=== PATIENT | female | born 1945 | race Hispanic/Latino ===

== ENCOUNTER 2019-06-15 21:56 | Inpatient (IN) | payer OTHER, SELFPAY ==
[~2019-06-15] VITALS: Ht 144.8 cm; Wt 53.8 kg
[2019-06-15 22:41] LABS: BASOPHILS % (AUTO) 0.7 % (0.0-5.0); EOSINOPHILS % (AUTO) 0.4 % (0.0-8.0); HEMATOCRIT 40.9 % (36-48); LYMPHOCYTES % (AUTO) 21.5 % (21.0-51.0); MEAN CORPUSCULAR HGB CONC 34.2 g/dL (32.0-36.0); MEAN CORPUSCULAR VOLUME 93.4 fL (79-99); MONOCYTES % (AUTO) 6.8 % (3.0-13.0); NEUTROPHILS % (AUTO) 70.6 % (40.0-77.0); PLATELET COUNT (AUTO) 343 K/uL (130-400); RED BLOOD CELL COUNT(AUTO) 4.37 MIL/uL (4.00-5.50); RED CELL DISTRIBUTION WIDTH 13.5 % (11.0-15.5); WHITE BLOOD COUNT (AUTO) 12.5 K/uL (4.8-10.8)
[2019-06-15 22:49] LABS: CREATININE 0.8 mg/dL (0.5-1.5); POTASSIUM 3.7 mmol/L (3.5-5.1)
[2019-06-15 22:53] LABS: ALBUMIN 4.1 g/dL (3.5-5.0); BILIRUBIN,DIRECT 0.1 mg/dL (0.0-0.3); BILIRUBIN,TOTAL 0.2 mg/dL (0.2-1.0); TOTAL PROTEIN, SERUM 8.9 g/dL (6.0-8.3)
[2019-06-15 22:55] LABS: INR 1.01 (0.85-1.15); PARTIAL THROMBOPLASTIN TIME 24.8 SEC (26.3-35.5); PROTHROMBIN TIME 10.4 SEC (9.6-11.6)
[2019-06-15] MEDS ORDERED: SODIUM CHLORIDE 0.9% 1000ML 1,000 ML IV ONE (23:12)
[2019-06-16] VITALS (7 sets, daily range): BP systolic 122–167; BP diastolic 62–89
[2019-06-16] MEDS: SODIUM CHLORIDE 0.9% 1000ML 1,000 ML IV SCH ×2 (03:19→14:05)
[2019-06-16] MEDS ORDERED: ONDANSETRON HCL 4 MG/2 ML VIAL IV PRN (03:30)
[2019-06-16] MEDS ORDERED: HYDRALAZINE HCL 20 MG/ML VIAL IV PRN ×2 (03:30→11:00)
[2019-06-16] MEDS ORDERED: ACETAMINOPHEN 325 MG TAB PO PRN ×2 (03:30)
[2019-06-16 05:14] LABS: BASOPHILS % (AUTO) 0.6 % (0.0-5.0); EOSINOPHILS % (AUTO) 0.4 % (0.0-8.0); HEMATOCRIT 36.5 % (36-48); LYMPHOCYTES % (AUTO) 23.6 % (21.0-51.0); MEAN CORPUSCULAR HEMOGLOBIN 31.7 pg (27.0-33.0); MEAN CORPUSCULAR HGB CONC 34.1 g/dL (32.0-36.0); MEAN CORPUSCULAR VOLUME 92.8 fL (79-99); MONOCYTES % (AUTO) 7.4 % (3.0-13.0); PLATELET COUNT (AUTO) 344 K/uL (130-400); RED BLOOD CELL COUNT(AUTO) 3.94 MIL/uL (4.00-5.50); RED CELL DISTRIBUTION WIDTH 13.5 % (11.0-15.5); WHITE BLOOD COUNT (AUTO) 10.4 K/uL (4.8-10.8)
[2019-06-16 05:33] LABS: ALBUMIN 3.4 g/dL (3.5-5.0); BILIRUBIN,TOTAL 0.4 mg/dL (0.2-1.0); CREATININE 0.8 mg/dL (0.5-1.5); CRP QUANTITATIVE 6.3 mg/L (0.00-9.0); POTASSIUM 3.8 mmol/L (3.5-5.1); TOTAL PROTEIN, SERUM 7.4 g/dL (6.0-8.3)
[2019-06-16] MEDS: LEVOFLOXACIN 500 MG/D5W 100 ML 100 ML IV SCH (06:14)
[2019-06-16] MEDS: METRONIDAZOLE 500MG/100ML BAG 100 ML IV SCH ×3 (06:15→22:05)
[2019-06-16] MEDS ORDERED: VALS1TAB81 PO (06:22)
[2019-06-16] MEDS ORDERED: LEVO100T12 PO (06:22)
[2019-06-16] MEDS ORDERED: PANTOPRAZOLE SODIUM 80 MG in SODIUM CHLORIDE 0.9% 100 ML IV SCH (07:15)
--- NOTE | 2019-06-16 08:33 | NUR ---
GI CONSULT SPOKE TO DR PATEL, UPDATED ON PATIENT STATUS. ORDERS GIVEN FOR CLEAR LIQUID DIET, H&H Q4H AND STOP PROTONIX DRIP AND GIVE PROTONIX 40MG IVP BID.
[2019-06-16] MEDS ORDERED: COMPOUND IV MISC 1 EACH IVSOLN MISC PRN (08:45)
[2019-06-16] MEDS ORDERED: FAMOTIDINE/PF 20 MG/2 ML VIAL IV SCH (09:00)
[2019-06-16 09:13] LABS: HEMATOCRIT 36.5 % (36-48)
[2019-06-16] MEDS: PANTOPRAZOLE 40 MG/VIAL IVP SCH ×2 (09:59→22:18)
[2019-06-16 12:43] LABS: HEMATOCRIT 34.7 % (36-48)
[2019-06-16 16:26] LABS: HEMATOCRIT 35.3 % (36-48)
[2019-06-16] MEDS ORDERED: LOSARTAN/HYDROCHLOROTHIAZIDE 50-12.5MG TABLET PO SCH (21:00)
[2019-06-17 04:00] VITALS: BP 139/68
[2019-06-17 05:56] LABS: BASOPHILS % (AUTO) 0.9 % (0.0-5.0); EOSINOPHILS % (AUTO) 1.6 % (0.0-8.0); HEMATOCRIT 32.9 % (36-48); LYMPHOCYTES % (AUTO) 29.8 % (21.0-51.0); MEAN CORPUSCULAR HEMOGLOBIN 32.1 pg (27.0-33.0); MEAN CORPUSCULAR HGB CONC 34.3 g/dL (32.0-36.0); MEAN CORPUSCULAR VOLUME 93.6 fL (79-99); MONOCYTES % (AUTO) 8.5 % (3.0-13.0); NEUTROPHILS % (AUTO) 59.2 % (40.0-77.0); NUCLEATED RED BLOOD CELLS 0.1 % (0.0-0.19); PLATELET COUNT (AUTO) 291 K/uL (130-400); RED BLOOD CELL COUNT(AUTO) 3.52 MIL/uL (4.00-5.50); RED CELL DISTRIBUTION WIDTH 13.4 % (11.0-15.5); WHITE BLOOD COUNT (AUTO) 9.4 K/uL (4.8-10.8)
[2019-06-17 05:59] LABS: CREATININE 0.7 mg/dL (0.5-1.5); POTASSIUM 3.2 mmol/L (3.5-5.1)
[2019-06-17] MEDS: METRONIDAZOLE 500MG/100ML BAG 100 ML IV SCH ×2 (06:04→14:11)
[2019-06-17] MEDS: LEVOFLOXACIN 500 MG/D5W 100 ML 100 ML IV SCH (06:04)
[2019-06-17] MEDS ORDERED: LEVOTHYROXINE 100 MCG TABLET PO SCH (08:00)
[2019-06-17 08:01] VITALS: BP 155/91
[2019-06-17] MEDS: SODIUM CHLORIDE 0.9% 1000ML 1,000 ML IV SCH (08:22)
[2019-06-17 08:57] LABS: HEMATOCRIT 35.7 % (36-48)
[2019-06-17] MEDS: PANTOPRAZOLE 40 MG/VIAL IVP SCH (09:00)
[2019-06-17 12:00] VITALS: BP 144/70
[2019-06-17 16:00] VITALS: BP 160/77
[2019-06-17] MEDS ORDERED: METR-172 PO (18:23)
[2019-06-17] MEDS ORDERED: LEVO500T89 PO (18:23)
[2019-06-17] MEDS ORDERED: PANT40TA PO (18:23)
[2019-06-17] MEDS ORDERED: POTASSIUM CHLORIDE 10% ELIXIR 20 MEQ/15 ML UDCUP PO SCH (18:30)
== END 2019-06-17 19:33 | disposition home or self-care (01) | DRG 379 ==
LOC: EDH 21:56 → EDHIP 23:48 → 4BH 06-16 00:02
PROVIDERS: ADMIT Internal Medicine; ATTEND Internal Medicine
DX: K57.33 Diverticulitis of large intestine without perforation or abscess with bleeding (principal); E11.65 Type 2 diabetes mellitus with hyperglycemia; E03.9 Hypothyroidism, unspecified; Z87.891 Personal history of nicotine dependence; I10 Essential (primary) hypertension; D72.829 Elevated white blood cell count, unspecified; R00.0 Tachycardia, unspecified
CPT/HCPCS: 36415; 74176; 78278; 80048; 80053; 80076; 82270; 82948; 83690; 85014; 85018; 85025; 85610; 85730; 86140; 86850; 86900; 86901; 87046; 93005; A9512; C9113; G0378; J1956; J2405; J3490; J7030

== ENCOUNTER 2022-08-28 20:04 | Emergency (ER) | payer OTHER ==
[~2022-08-28] VITALS: Ht 175.3 cm; Wt 53.1 kg
[~2022-08-28 20:04] MED LIST: LEVO-70 PO; LEVO100T12 PO; METR-172 PO; PANT40TA PO; VALS1TAB81 PO
[2022-08-28] MEDS ORDERED: 0.9%NACL 1000ML 1,000 ML IV SCH (21:30)
[2022-08-28] MEDS ORDERED: ONDANSETRON 4MG INJ IVP ONE (21:30)
[2022-08-28 21:44] LABS: BASOPHILS % (AUTO) 0.2 % (0.0-5.0); EOSINOPHILS % (AUTO) 5.4 % (0.0-8.0); HEMATOCRIT 44.6 % (36-48); LYMPHOCYTES % (AUTO) 3.7 % (21.0-51.0); MEAN CORPUSCULAR HEMOGLOBIN 30.6 pg (27.0-33.0); MEAN CORPUSCULAR HGB CONC 33.4 g/dL (32.0-36.0); MEAN CORPUSCULAR VOLUME 91.6 fL (79-99); MONOCYTES % (AUTO) 1.9 % (3.0-13.0); NEUTROPHILS % (AUTO) 88.3 % (40.0-77.0); PLATELET COUNT (AUTO) 348 K/uL (130-400); RED BLOOD CELL COUNT(AUTO) 4.87 MIL/uL (4.00-5.50); RED CELL DISTRIBUTION WIDTH 13.2 % (11.0-15.5); WHITE BLOOD COUNT (AUTO) 18.3 K/uL (4.8-10.8)
[2022-08-28 22:02] LABS: CREATININE 0.9 mg/dL (0.5-1.5); POTASSIUM 3.8 mmol/L (3.5-5.1)
[2022-08-28 22:03] LABS: APPEARANCE,URINE CLOUDY (CLEAR); BILIRUBIN,URINE NEGATIVE (NEGATIVE); COLOR,URINE YELLOW (YELLOW); GLUCOSE, URINE (UA) NEGATIVE (NEGATIVE); KETONES,URINE 5 mg/dL (NEGATIVE); LEUKOCYTE ESTERASE ,URINE 75 Leu/uL (NEGATIVE); NITRATE,URINE NEGATIVE (NEGATIVE); OCCULT BLOOD,URINE SMALL (NEGATIVE); PROTEIN,URINE 200 mg/dL (NEGATIVE); UROBILINOGEN,URINE 0.2 mg/dL (0.2-1.0)
[2022-08-28 22:06] LABS: ALBUMIN 4.4 g/dL (3.5-5.0); TOTAL PROTEIN, SERUM 9.1 g/dL (6.0-8.3)
[2022-08-28 22:13] LABS: BACTERIA,URINE RARE /HPF (None Seen); MUCUS,URINE RARE LPF (None Seen); SQUAMOUS EPITHELIAL CELL,UR FEW /HPF (0-2)
[2022-08-29] MEDS ORDERED: AZITHROMYCIN 250 MG TABLET PO STA (03:04)
[2022-08-29] MEDS ORDERED: AZIT500T4 PO (03:08)
[2022-08-29] MEDS ORDERED: AZITHROMYCIN 250 MG TABLET PO ONE (03:13)
[2022-08-29 03:14] VITALS: BP 132/62
== END 2022-08-29 03:27 | disposition home or self-care (01) ==
LOC: EDH 20:04
DX: A05.9 Bacterial foodborne intoxication, unspecified (principal); K52.9 Noninfective gastroenteritis and colitis, unspecified; I10 Essential (primary) hypertension; Z79.899 Other long term (current) drug therapy
CPT/HCPCS: 99285; 80053; 83690; 85025; 87088; 81001; 36415; 96374; 96361; J7030; J2405

== ENCOUNTER → 2024-06-04 | Outpatient (CLI) | payer OTHER ==
[~2024-06-04] MED LIST changes: +AZIT500T4 PO
== END | disposition home or self-care (01) ==
LOC: RAH 09:13
PROVIDERS: ATTEND Internal Medicine
DX: M81.0 Age-related osteoporosis without current pathological fracture (principal); M85.88 Other specified disorders of bone density and structure, other site; Z78.0 Asymptomatic menopausal state
CPT/HCPCS: 77080

== ENCOUNTER 2024-10-05 21:35 | Inpatient (IN) | payer OTHER ==
[~2024-10-05] VITALS: Ht 144.8 cm; Wt 53.5 kg
--- NOTE | 2024-10-05 21:51 | ERN ---
ED Note History of Present Illness Stated Complaint: CHEST PAIN Chief Complaint: Chest Pain Time Seen by MD: 21:46 Dictation: This is a 79-year-old pleasant female who began experiencing pain bilaterally in her axillary areas. Was sore to touch it was not too bad this morning.. She went to the chiropractor for adjustment in the upper back was adjusted after which she started experiencing worsening upper mid back pain as well as the axillary pain. She took Tylenol at 2:00 p.m. and 1800 without much relief. She denied any diaphoresis or previous chest pains or cardiac issues. No fall no injury Temperature 97.7 pulse 82 respirations 20 blood pressure 188/90 with a pulse oximetry of 100% on room air Chronic medical problems include hypertension and hypothyroidism Allergies: Coded Allergies: No Known Drug Allergies (Unverified Allergy, Unknown, 06/16/19) Home Meds Active Scripts Azithromycin (Azithromycin) 500 Mg Tablet, 500 MG PO DAILY for 3 Days, #3 TAB Prov:ROSALEE MEYERS MD 08/29/22 Pantoprazole Sodium (Protonix) 40 Mg Tablet.dr, 40 MG PO BID for 10 Days, TAB Prov:LEROY KIMBALL SPEECH LANGUAGE PATHOLOGY ASSISTANT 06/17/19 Metronidazole (Metronidazole) 500 Mg Tablet, 500 MG PO TID for 5 Days, TAB Prov:LEROY KIMBALL NP 06/17/19 Levofloxacin (Levofloxacin) 500 Mg Tablet, 500 MG PO DAILY for 5 Days, TAB Prov:LEROY KIMBALL SPEECH LANGUAGE PATHOLOGY ASSISTANT 06/17/19 Reported Medications Valsartan/Hydrochlorothiazide (Valsartan-Hctz 320-25 mg Tab) 1 Each Tablet, 1 TAB PO HS, TAB 06/16/19 Levothyroxine Sodium (Levothyroxine Sodium) 100 Mcg Tablet, 100 MCG PO DAILYBKFST, TAB 06/16/19 Past Medical History Past Medical History: Hypertension, Hypothyroid Surgical History: None Family History: Negative Social History: Negative History: Not Applicable RN Note Reviewed/Agreed w/PFSH: Yes Review of System Dictation Described in the history of present illness Constitutional: Negative for fever,chills, and weight loss Eyes: Negative for injury, pain,redness, and discharge ENT: Negative for injury,pain or swelling Cardiovascular: Negative for chest pain, palpitations, and edema Respiratory: Negative for shortness of breath, cough, and wheezing, Abdomen/GI: Negative for abdominal pain, nausea, vomiting, diarrhea, and constipation Back: Negative for injury and pain : Negative for injury, bleeding and discharge MS/Extremity: Negative for injury and deformity Skin: Negative for rash, and discoloration Neuro: Negative for headache, weakness, numbness, tingling, and seizure Psych: Negative for suicide ideation, homicidal ideation, and hallucinations Initial Vital Sign VS Vital Signs Date Time Temp Pulse Resp B/P (MAP) Pulse Ox O2 Delivery O2 Flow Rate FiO2 10/05/24 21:36 97.7 82 20 188/90 100 Room Air 10/05/24 21:54 0 21 Physical Exam Dictation General: awake, alert, NAD frail elderly female Head/Face: Normocephalic, atraumatic Eyes: PERRL, EOMI, vision at baseline ENT: oral cavity clear, TMs clear, no signs of infection Neck: Trachea midline, supple, no nuchal rigidity Cardiovascular: RRR, normal S1/S2, No MRGs, no JVD Respiratory: CTAB, no respiratory distress, No rales or wheezes Abdomen: Soft, non-tender, non-distended, normal bowel sounds, no guarding or rebound. Skin: Warm, dry, normal turgor, no rash MS/Extremity: Pulses equal, no cyanosis, neurovascular intact, FROM interscapular area pain with a tenderness in the paraspinal muscles and spine. No induration or ecchymosis noted Neuro: COAx4, GCS 15, strength 5/5, CN 2-12 intact, normal cerebellar exam, normal gait, Psych: Normal behavior, mood, and affect normal Extremities-trace edema without any palpable cords, Homans sign is negative Results (Laboratory/Radiology) Laboratory/Radiology Laboratory Tests Test 10/05/24 21:48 10/05/24 22:23 10/05/24 23:14 10/06/24 04:40 White Blood Count 9.8 K/uL (4.8-10.8) 11.6 K/uL (4.8-10.8) H Red Blood Count 4.60 MIL/uL (4.00-5.50) 4.12 MIL/uL (4.00-5.50) Hemoglobin 14.1 g/dL (12.0-16.0) 12.6 g/dL (12.0-16.0) Hematocrit 42.4 % (36-48) 38.4 % (36-48) Mean Corpuscular Volume 92.2 fL (79-99) 93.2 fL (79-99) Mean Corpuscular Hemoglobin 30.7 pg (27.0-33.0) 30.6 pg (27.0-33.0) Mean Corpuscular Hemoglobin Concent 33.3 g/dL (32.0-36.0) 32.8 g/dL (32.0-36.0) Red Cell Distribution Width 13.2 % (11.0-15.5) 13.2 % (11.0-15.5) Platelet Count 319 K/uL (130-400) 290 K/uL (130-400) Mean Platelet Volume 9.5 fL (7.5-10.5) 9.3 fL (7.5-10.5) Immature Granulocyte % (Auto) 0.4 % (0-1) 0.4 % (0-1) Neutrophils (%) (Auto) 69.9 % (40.0-77.0) 70.8 % (40.0-77.0) Lymphocytes (%) (Auto) 21.5 % (21.0-51.0) 18.2 % (21.0-51.0) L Monocytes (%) (Auto) 7.2 % (3.0-13.0) 9.0 % (3.0-13.0) Eosinophils (%) (Auto) 0.4 % (0.0-8.0) 0.9 % (0.0-8.0) Basophils (%) (Auto) 0.6 % (0.0-5.0) 0.7 % (0.0-5.0) Neutrophils # (Auto) 6.8 K/uL (1.8-7.7) 8.2 K/uL (1.8-7.7) H Lymphocytes # (Auto) 2.1 K/uL (1.0-4.8) 2.1 K/uL (1.0-4.8) Monocytes # (Auto) 0.7 K/uL (0.1-1.0) 1.0 K/uL (0.1-1.0) Eosinophils # (Auto) 0.04 K/uL (0.00-0.70) 0.10 K/uL (0.00-0.70) Basophils # (Auto) 0.06 K/uL (0.00-0.20) 0.08 K/uL (0.00-0.20) Absolute Immature Granulocyte (auto 0.04 K/uL (0-1) 0.05 K/uL (0-1) Nucleated Red Blood Cells 0.0 % (0.0-0.19) 0.0 % (0.0-0.19) Sodium Level 137 mmol/L (136-145) 141 mmol/L (136-145) Potassium Level 4.1 mmol/L (3.5-5.1) 4.5 mmol/L (3.5-5.1) Chloride Level 99 mmol/L (101-111) L 106 mmol/L (101-111) Carbon Dioxide Level 29 mmol/L (21-32) 28 mmol/L (21-32) Blood Urea Nitrogen 21 mg/dL (7-18) H 19 mg/dL (7-18) H Creatinine 1.1 mg/dL (0.5-1.0) H 0.9 mg/dL (0.5-1.0) Glomerular Filtration Rate Calc 51 mL/min (>90) 65 mL/min (>90) Random Glucose 208 mg/dL (70-105) H 131 mg/dL (70-105) H Hemoglobin A1c 7.1 % (4.0-6.0) H Estimated Average Glucose (eAG) 157 mg/dL (70-126) H Total Calcium 9.2 mg/dL (8.5-10.1) 8.7 mg/dL (8.5-10.1) Total Creatine Kinase 69 U/L (21-232) Troponin I High Sensitivity 378 ng/L (4-50) *H 84917 ng/L (4-50) *H B-Type Natriuretic Peptide 85 pg/mL (0-100) Troponin I 0.09 ng/mL (0.00-0.05) H Urine Color COLORLESS (YELLOW) Urine Appearance CLEAR (CLEAR) Urine pH 7.5 (5.0-8.0) Urine Specific [place] 1.009 (1.001-1.031) Urine Protein NEGATIVE mg/dL (NEGATIVE) Urine Glucose (UA) NEGATIVE mg/dL (NEGATIVE) Urine Ketones NEGATIVE mg/dL (NEGATIVE) Urine Occult Blood NEGATIVE (NEGATIVE) Urine Nitrate NEGATIVE (NEGATIVE) Urine Bilirubin NEGATIVE mg/dL (NEGATIVE) Urine Urobilinogen 0.2 mg/dL (0.2-1.0) Urine Leukocyte Esterase NEGATIVE Jacy/uL Phosphorus Level 3.7 mg/dL (2.5-4.9) Magnesium Level 1.80 mg/dL (1.80-2.40) Thyroid Stimulating Hormone (TSH) 1.83 uIU/mL (0.36-3.74) Labs Reviewed?: Yes EKG Comment: 12 lead EKG done on 10/05/2024 at 9:34 p.m. showed a heart rate of 80, HI interval 158, QRS 69, QT/QTC 351/405. Impression normal sinus rhythm with repolarization changes in the lateral leads mostly in lead 1 and aVL. Please note no acute ST elevations were noted I have compared the EKG to old EKGs done on 06/15/2019 ST changes in lead 1 and aVL seem a little more pronounced than the old EKGs Interpreted by ER MD Dr. Ayala ED Course ED Course Orders Procedure Category Date Status Time Vital Signs Per CPOE 10/05/24 Transmitted Routine 21:37 B-Type Natriuretic LAB 10/05/24 Complete Peptide 21:37 Chest 1vw RAD 10/05/24 Taken 21:37 12 Lead Ekg Tracing- EKG 10/05/24 Logged Technical 21:37 Oxygen By Nc/Pulse Ox CPOE 10/05/24 Transmitted 21:37 Maintain Iv CPOE 10/05/24 Transmitted 21:37 Iv Insertion CPOE 10/05/24 Transmitted 21:37 Cardiac Monitoring CPOE 10/05/24 Transmitted 21:37 Pulse Oximetry With CPOE 10/05/24 Transmitted Vs And Prn 21:37 Cbc With Differential LAB 10/05/24 Complete 21:37 Activity: Br W/Brp CPOE 10/05/24 Transmitted With Assist 21:37 Creatine Kinase, Total LAB 10/05/24 Complete 21:37 Troponin I High LAB 10/05/24 Complete Sensitivity 21:37 Urinalysis Profile LAB 10/05/24 Complete 21:37 Troponin Poc Order LAB 10/05/24 Complete Only 21:37 Bedside Troponin-I LAB.ER 10/05/24 In Process (Poc) 21:37 Basic Metabolic Panel LAB 10/05/24 Complete 21:37 Morphine 2mg Syg PHA 10/05/24 Complete (Morphine 2mg Syg) 22:30 Ketorolac PHA 10/05/24 Complete Tromethamine 15mg/Ml 22:30 Nitroglycerin 0.4mg PHA 10/05/24 In Process Sl Tab (Nitrostat) 22:30 Edm Admit Bridge Order ADM 10/05/24 Transmitted 22:59 Aspirin 81mg Chew Tab PHA 10/05/24 Complete (Aspirin 81mg Chew 23:30 Aspirin 81mg Chew Tab PHA 10/06/24 In Process (Aspirin 81mg Chew 09:00 Troponin I High LAB 10/06/24 Complete Sensitivity 04:00 Troponin I High LAB 10/06/24 Logged Sensitivity 10:00 Troponin I High LAB 10/06/24 Logged Sensitivity 16:00 Nitroglycerin 1gm PHA 10/05/24 In Process Oint (Nitroglycerin 1g 23:30 Ondansetron 4mg Inj PHA 10/05/24 In Process (Zofran 4mg Inj) 23:30 Heparin 5,000 Unit PHA 10/06/24 In Process Vial (Heparin 5,000 U 09:00 Pantoprazole 40mg Tab PHA 10/06/24 In Process (Protonix 40mg Tab 09:00 Acetaminophen 325 Tab PHA 10/05/24 In Process (Tylenol 325mg Tab 23:30 Admit Orders ADM 10/05/24 Transmitted 23:04 Cardiology Consult CONPHYSVC 10/06/24 Transmitted 08:00 Consistent Carb DIET 10/06/24 Transmitted Breakfast Basic Metabolic Panel LAB 10/06/24 Complete 04:00 Cbc With Differential LAB 10/06/24 Complete 04:00 Magnesium LAB 10/06/24 Complete 04:00 Phosphorus LAB 10/06/24 Complete 04:00 Activity: Ad Aimee CPOE 10/05/24 Transmitted 23:04 Nurse To Enter Home CPOE 10/05/24 Transmitted Medication 23:04 Oxygen By Nc/Pulse Ox CPOE 10/05/24 Transmitted 23:04 Telemetry Monitoring CPOE 10/05/24 Transmitted 23:04 Vital Signs(Adult CPOE 10/05/24 Transmitted Hospitalist) 23:04 Initiate ISAAK 10/05/24 In Process Hyperglycemia Protoco 23:04 Insulin Regular, PHA 10/06/24 In Process Human 3ml (Humulin R 07:30 Initiate Po ISAAK 10/05/24 In Process Hypokalemia Protoc 23:04 Potassium Chloride PHA 10/05/24 In Process 20meq/100ml ([place] 23:30 Potassium Chl 10% PHA 10/05/24 In Process Elixir 20meq (Kcl 10% 23:30 Potassium Chloride PHA 10/05/24 In Process 20meq Er (K-Dur/Klor- 23:30 Notify Physician If CPOE 10/05/24 Transmitted There Is 23:04 Notify Md On The Next CPOE 10/05/24 Transmitted 23:04 Notify Md On The CPOE 10/05/24 Transmitted Next(Cont.) 23:04 Magnesium 2gm Premix PHA 10/05/24 In Process 50ml (Magnesium 2gm 23:30 Hemoglobin A1c LAB 10/06/24 Complete 04:00 Daily Weights CPOE 10/05/24 Transmitted 23:14 I&O Q Shift CPOE 10/05/24 Transmitted 23:14 Thyroid Stimulating LAB 10/06/24 Complete Hormone 04:00 Current Medications Medications (Trade) Dose Ordered Sig/Rashad Route PRN Reason Start Time Stop Time Status Last Admin Dose Admin Ketorolac Tromethamine (toRADol) 15 mg ONCE ONCE IV 10/05/24 22:30 10/05/24 22:31 DC 10/05/24 23:34 Morphine Sulfate (morPHINE 2MG SYG) 2 mg ONCE ONCE IVP 10/05/24 22:30 10/05/24 22:31 DC 10/05/24 22:22 Nitroglycerin (Nitrostat) 0.4 mg AD PRN SL CHEST PAIN 10/05/24 22:30 11/04/24 22:29 Vital Signs Date Time Temp Pulse Resp B/P (MAP) Pulse Ox O2 Delivery O2 Flow Rate FiO2 10/06/24 05:19 97.7 65 13 121/61 97 Room Air* 0 10/06/24 03:33 97.7 77 14 134/72 98 Room Air* 0 10/06/24 01:31 97.7 74 19 124/79 97 Room Air* 0 10/05/24 23:50 97.7 70 18 125/74 100 Room Air* 0 10/05/24 22:49 97.7 74 17 137/73 100 Room Air* 0 10/05/24 21:54 97.7 70 22 154/71 100 Room Air* 0 21 10/05/24 21:36 97.7 82 20 188/90 100 Room Air We will perform diagnostic labs, advanced imaging and administer medications according to the patient's complaint. Once the results are available, will review and personally interpreted the labs to rule out any acute life- threatening emergency the trach require immediate intervention and treatment. I will then re-evaluate the patient after treatment and diagnostic exams have return to determine whether the patient requires any further testing, can safely be discharged home or need further admission to hospital for additional treatment and evaluation. Labs reviewed CBC is with a normal limits BNP 7 showed a BUN and creatinine of 21 and 1.1. Troponins elevated at 378. Chest x-ray shows chronic changes but no acute infiltrates. I had a long discussion with the patient and her daughter Brandy at bedside and explained to her about the ST repolarization changes in the lateral leads as well as elevated troponins which are concerning for a cardiac event. Is conceivable that the patient has some tenderness and paraspinal muscle spasm in the upper back which may be a component of musculoskeletal pain in addition. And I recommended admission to the hospital for management and cardiac evaluation as well as pain control. She is agreeable Patient accepted by Curry Zuniga, mid-level provider for hospitalist group for admission and further management. Patient's presentation has been musculoskeletal and cardiac changes have been extremely incidental. She denies any diaphoresis shortness of breath anterior chest pain in any form. Anticoagulation per admission team. Addendum 6:10 a.m. repeat EKG was done which showed some acute new changes in the anterior and septal leads. Attempted to notify primary team call placed Medical Decision Making MDM MDM: Differential diagnosis: Thoracic radiculopathy, paraspinal muscle spasm, unstable angina or aortic problems Rationale: Tests considered and ordered secondary to shared decision making include: labs, ECG and radiology Previous outside records reviewed: Old ER visits. Risk of complication and/or morbidity or mortality of patient management: None Medications-Per medication reconciliation Need for hospitalization: Patient does meet criteria for hospitalization. Need for emergency major/minor surgery: No There are no social concerns with this patient. Prescription drug management Prescriptions will include symptomatic care Patient's prior external medical records from other ER visits were reviewed by me as indicated. Prior testing and results from previous visits were reviewed. Prior tests were taken into account with medical decision making and resource utilization, independent historian/historians were used to obtain complete medical history. I independently interpreted the test that were performed, results were reviewed by me and considered findings on radiology if ordered. Medical management and examination interpretation discussions were had by me with other qualified healthcare professionals as indicated for the patient's care. Problem List Problem List: (1) Uncontrolled hypertension (2) Hypothyroidism (3) Midline back pain (4) Non-STEMI (non-ST elevated myocardial infarction) (5) Tachycardia Critical Care Note Critical Time: 45 minutes Comment(s) Life-threatening illness; acute non-STEMI, Risk of morbidity mortality-high Complexity of medical decision making-high (X) high probability of sudden clinically significant deterioration in the patient's condition required the highest level of my preparedness to intervene urgently. I provided critical care services requiring my direct and personal management as noted below; (x) chart data review (x) reviewing nurse's notes and/charts (x) documentation time (x) consultation collaboration on findings and therapy options (x) medication orders and management (x) re-evaluations (x) care, transfer of care, and discharge plans (x) ordering and interpreting studies (x) ordering and reviewing labs (x) obtaining necessary history from family, EMS, prison, private MD, surrogate decision makers because patient was unable to give history due to limitations in the mental status (x) aggregate critical care time was ( 45 ) minutes. This includes only time during which I was engaged in work directly related to the patient's care as described above whether at the bedside or elsewhere in the ER while the patient was critical. My time did not include minutes spent treating any other patients simultaneously or on activities that did not directly contribute to the patient's treatment. It did not include time spent performing other reported procedures or services of residents if any. Gaviota TOMPKINSCP DX & DISP Disposition: Inpatient Decision to Admit Time: 22:36 Departure Impression: Primary Impression: Non-STEMI (non-ST elevated myocardial infarction) Additional Impressions: Midline back pain, Uncontrolled hypertension, Hypothyroidism Condition: Stable Additional Instructions: Patient was informed of all the diagnostic labs and procedures conducted in the emergency room today and demonstrated understanding of the results. I personally reviewed and interpreted all the diagnostic exams performed in the ER today. The patient will be admitted to the hospital for further treatment and evaluation. Disposition-admit to facility Condition-stable/guarded Course-uncertain at this time Pain status-decreased Assessment-exam unchanged Admission Certification- I certify that the patients status is appropriate and is based on my best clinical judgment and the patient's condition as documented in the medical records Referrals: HIEU BARBER MD (PCP) GAVIOTA AYALA MD Oct 05, 2024 21:51
[2024-10-05 22:01] LABS: BASOPHILS # (AUTO) 0.06 K/uL (0.00-0.20); BASOPHILS % (AUTO) 0.6 % (0.0-5.0); EOSINOPHILS # (AUTO) 0.04 K/uL (0.00-0.70); EOSINOPHILS % (AUTO) 0.4 % (0.0-8.0); HEMATOCRIT 42.4 % (36-48); IMMATURE GRANULOCYTE ABSOLUTE 0.04 K/uL (0-1); LYMPHOCYTES # (AUTO) 2.1 K/uL (1.0-4.8); LYMPHOCYTES % (AUTO) 21.5 % (21.0-51.0); MEAN CORPUSCULAR HEMOGLOBIN 30.7 pg (27.0-33.0); MEAN CORPUSCULAR HGB CONC 33.3 g/dL (32.0-36.0); MEAN CORPUSCULAR VOLUME 92.2 fL (79-99); MONOCYTES # (AUTO) 0.7 K/uL (0.1-1.0); MONOCYTES % (AUTO) 7.2 % (3.0-13.0); NEUTROPHILS # (AUTO) 6.8 K/uL (1.8-7.7); NEUTROPHILS % (AUTO) 69.9 % (40.0-77.0); PLATELET COUNT (AUTO) 319 K/uL (130-400); RED CELL DISTRIBUTION WIDTH 13.2 % (11.0-15.5); WHITE BLOOD COUNT (AUTO) 9.8 K/uL (4.8-10.8)
[2024-10-05 22:09] LABS: CREATININE 1.1 mg/dL (0.5-1.0); POTASSIUM 4.1 mmol/L (3.5-5.1)
[2024-10-05] MEDS: morPHINE 2 MG SYG IVP ONE (22:22)
[2024-10-05 22:27] LABS: B-TYPE NATRIURETIC PEPTIDE 85 pg/mL (0-100)
[2024-10-05] MEDS ORDERED: NITROGLYCERIN 0.4 MG SL TAB SL PRN (22:30)
--- NOTE | 2024-10-05 23:08 | HP ---
History of Present Illness Reason for Visit: chest pain Referring MD: Dr. Sheila Rivera History of Present Illness Ms. Mac is a 79-year-old female that was seen and examined today on 10/05/2024. Patient is a good historian and personal health. Patient states that she came to the emergency department with a chief complaint of bilateral chest wall pain closer to the axilla and pain also radiates to the back. Onset was 9:30 a.m.. Character is described as throbbing. Symptoms are aggravated with palpation and movement. Symptoms are not alleviated with a chiropractic adjustment in fact symptoms became worse after a chiropractic adjustment. There was no alleviating factors Duration of pain is on and off. Patient denies any associated shortness of breath, nausea, vomiting, headache, dizziness. Today in the emergency department CBC unremarkable, troponin 378 (high sensitivity), creatinine 1.1, glucose 208 mg/dL, GFR 51, no urinalysis has been collected or sent to lab. Emergency room initial impression and EKG is that there is new T-wave inversions signifying a change from previous EKGs one week ago at a prior emergency room visit. For this reason emergency room physician recommended patient be admitted with a diagnosis of chest pain. Past Medical History ADDITIONAL PAST MEDICAL HISTORY: [Hypertension, hypothyroidism, Diabetes mellitius type2] SOCIAL HISTORY: [Negative for smoking, alcohol use, drug use. Patient lives with the [place]. Patient has good access to health care through her insurance. Patient denies difficulty paying her bills. 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 Patient is typically independent of all her ADLs.] SURGICAL HISTORY: [Thyroidectomy] Review of Systems General: No Fever, No Chills, No Night Sweats, No Fatigue, No Malaise, No Appetite, No Other HEENT: No Head Aches, No Visual Changes, No Eye Pain, No Ear Pain, No Dysphasia, No Sinus Congestion, No Post Nasal Drip, No Sore Throat, No Other Pulmonary: No Dyspnea, No Cough, No Pleuritic Chest Pain, No Other Cardiovascular: Chest Pain; No: Palpitations, Orthopnea, Paroxysmal Noc. Dyspnea, Edema, Lt Headedness, Other Gastrointestinal: No: Nausea, Vomiting, Abdominal Pain, Diarrhea, Constipation, Melena, Hematochezia, Other Genitourinary: No Dysuria, No Frequency, No Incontinence, No Hematuria, No Retention, No Other Musculoskeletal: back pain; No: other, neck pain, shoulder pain, arm pain, hand pain, leg pain, foot pain Skin: No Urticaria, No Rash, No Other Neurological: No: Weakness, Numbness, Incoordination, Change in speech, Confusion, Seizures, Other Allergies: Coded Allergies: No Known Drug Allergies (Unverified Allergy, Unknown, 06/16/19) Scheduled Azithromycin (Azithromycin), 500 MG PO DAILY Levofloxacin (Levofloxacin), 500 MG PO DAILY Levothyroxine Sodium (Levothyroxine Sodium), 100 MCG PO DAILYBKFST, (Reported) Metronidazole (Metronidazole), 500 MG PO TID Pantoprazole Sodium (Protonix), 40 MG PO BID Valsartan/Hydrochlorothiazide (Valsartan-Hctz 320-25 mg Tab), 1 TAB PO HS, (Reported) Exam Vital Signs Vital Signs Date Time Temp Pulse Resp B/P (MAP) Pulse Ox O2 Delivery O2 Flow Rate FiO2 10/05/24 21:54 97.7 70 22 154/71 100 Room Air* 0 21 General Appearance: Alert, Oriented X3, Cooperative, No acute distress HEENT: Atraumatic, EOMI, Mucous membr. moist/pink Respiratory: Clear to auscultation, Normal air movement, NL respiratory effort Cardiovascular: Regular rate, Regular rhythm, Normal S1, Normal S2 Abdominal: Normal bowel sounds, Soft, No tenderness Extremities: No edema Skin: No significant lesion Neuro: Normal speech, Strength at 5/5 X4 ext, Sensation intact, Cranial nerves 3-12 NL Psych/Mental Status: Mental status NL, Mood NL, Thoughts/Content NL Assessment/Plan ASSESSMENT: [ Chest pain, POA Abnormal EKG, POA Elevated troponin, POA CKD stage IIIA, POA uncontrolled Diabetes mellitius type2, POA Hypertension Hypothyroidism] PLAN: [ Admit patient to PCCU as inpatient status. Place patient on telemetry monitoring. Administer aspirin 162 mg by mouth times 1 dose Continue aspirin 81 mg by mouth once daily Nitropaste 0.5 inches anterior chest wall every 8 hours Trend troponin every 6 hours x 3 sets Supplemental oxygen to maintain O2 saturation greater than 92% Patient will be followed by cardiology service, Dr. Miranda Avoid nephrotoxic agents when possible Renally dose all medications when possible Monitor intake and output Weight patient daily Monitor patient's labs Check hemoglobin A1c in a.m. Glucometer checks a.c. and HS 1800 ADA diet Humulin R sliding scale Check TSH in a.m., Consider resuming home medications once they are reconciled For now, Hydralazine 10 mg IV every 4 hours for systolic blood pressure greater than 160 mmHg GI prophylaxis, Protonix DVT prophylaxis, heparin ADVANCED CARE PLANNING 1. Which of the following were discussed? Hospice Care - Yes Therapeutic options - Yes Advance Directives - Yes- patient states he does not have any advance directives in place at this time, however her has been can make decisions for her if she becomes unable. Other discussions - patient wishes to remain a full code at this time 2. Discussed with who? Patient 3. Voluntary nature of this service was explained to the patient? Yes 4. Amount of time spent - ____ 16 minutes ___ 5. Reviewed by Physician? (if this service was performed by NPP) Yes This document was generated in part using voice recognition software, occasional wrong word or sound alike substitutions may have occurred due to the inherent limitations of voice recognition software. Read the chart carefully and recognize using context, where the substitutions have occurred. Although every effort was made to edit the content, rail walker and typing errors may occur ATTESTATION BY PHYSICIAN I have seen and examined the patient. I reviewed the documentation, medical decision making, and treatment plan as noted by the mid-level provider above. I agree with the findings and plan of care. MISSY DALEYP Oct 05, 2024 23:08
[2024-10-05] MEDS ORDERED: PoTASSium chloRIDE 20MEQ/100ML 100 ML IV PRN (23:30)
[2024-10-05] MEDS ORDERED: ondanSETRON 4MG INJ IV PRN (23:30)
[2024-10-05] MEDS ORDERED: PoTASSium chloRIDE 20MEQ ER 20 MEQ ERTAB PO PRN (23:30)
[2024-10-05] MEDS ORDERED: MAGNESIUM 2GM PREMIX 50ML 50 ML IV PRN (23:30)
[2024-10-05 23:32] LABS: APPEARANCE,URINE CLEAR (CLEAR); BILIRUBIN,URINE NEGATIVE (NEGATIVE); COLOR,URINE COLORLESS (YELLOW); GLUCOSE, URINE (UA) NEGATIVE (NEGATIVE); KETONES,URINE NEGATIVE (NEGATIVE); LEUKOCYTE ESTERASE ,URINE NEGATIVE Leu/uL (NEGATIVE); NITRATE,URINE NEGATIVE (NEGATIVE); OCCULT BLOOD,URINE NEGATIVE (NEGATIVE); PH,URINE 7.5 (5.0-8.0); PROTEIN,URINE NEGATIVE (NEGATIVE); UROBILINOGEN,URINE 0.2 mg/dL (0.2-1.0)
[2024-10-05] MEDS: ASPIRIN 81MG CHEW TAB PO ONE (23:32)
[2024-10-05 23:33] LABS: ADD UA MICROSCOPIC NO
[2024-10-05] MEDS: NITROGLYCERIN 1GM OINT 1 INCH/1GM TD SCH (23:33)
[2024-10-05] MEDS: ketOROlac 15MG/ML VIAL (15MG/ML) IV ONE (23:34)
[2024-10-06 02:01] LABS: HEMOGLOBIN A1C 7.1 % (4.0-6.0)
[2024-10-06 04:51] LABS: BASOPHILS # (AUTO) 0.08 K/uL (0.00-0.20); BASOPHILS % (AUTO) 0.7 % (0.0-5.0); EOSINOPHILS % (AUTO) 0.9 % (0.0-8.0); HEMATOCRIT 38.4 % (36-48); IMMATURE GRANULOCYTE ABSOLUTE 0.05 K/uL (0-1); LYMPHOCYTES # (AUTO) 2.1 K/uL (1.0-4.8); LYMPHOCYTES % (AUTO) 18.2 % (21.0-51.0); MEAN CORPUSCULAR HEMOGLOBIN 30.6 pg (27.0-33.0); MEAN CORPUSCULAR HGB CONC 32.8 g/dL (32.0-36.0); MEAN CORPUSCULAR VOLUME 93.2 fL (79-99); NEUTROPHILS # (AUTO) 8.2 K/uL (1.8-7.7); NEUTROPHILS % (AUTO) 70.8 % (40.0-77.0); PLATELET COUNT (AUTO) 290 K/uL (130-400); RED BLOOD CELL COUNT(AUTO) 4.12 MIL/uL (4.00-5.50); RED CELL DISTRIBUTION WIDTH 13.2 % (11.0-15.5); WHITE BLOOD COUNT (AUTO) 11.6 K/uL (4.8-10.8)
[2024-10-06 05:17] LABS: CREATININE 0.9 mg/dL (0.5-1.0); MAGNESIUM 1.8 mg/dL (1.80-2.40); PHOSPHORUS 3.7 mg/dL (2.5-4.9); POTASSIUM 4.5 mmol/L (3.5-5.1); THYROID STIMULATING HORMONE 1.83 uIU/mL (0.36-3.74)
--- NOTE | 2024-10-06 05:55 | NUR ---
GLASS PRODUCTION MACHINE OPERATOR PROVIDER PAGED AT THIS TIME. PENDING CALL BACK.
--- NOTE | 2024-10-06 06:19 | NUR ---
REPEAT EKG GIVEN TO ED MD AT THIS TIME.
--- NOTE | 2024-10-06 06:21 | NUR ---
LUMBER STRAIGHTENER PROVIDER REPAGED AT THIS TIME. PENDING CALL BACK.
--- NOTE | 2024-10-06 06:25 | NUR ---
HITESH RUFFIN MADE AWARE OF CRITICAL LAB VALUE. ORDERS GIVEN.
--- NOTE | 2024-10-06 06:38 | NUR ---
SPOKE TO DITCH DIGGER PROVIDER MAYO CAIN AT THIS TIME.
[2024-10-06 06:59] LABS: INR 0.99 (0.85-1.15); PROTHROMBIN TIME 11.1 SEC (9.6-11.6)
[2024-10-06] MEDS: HEParin 5,000 UNIT VIAL IV PRN (07:19)
[2024-10-06] MEDS: HEParin 25,000 UNITS/250ML D5W 250 ML IV SCH (07:20)
--- NOTE | 2024-10-06 07:22 | EKG ---
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
--- NOTE | 2024-10-06 07:22 | NUR ---
REPORT GIVEN TO LUKE BERMUDEZ AT THIS TIME
[2024-10-06] MEDS: INSULIN humuLIN R 100 UNIT/ML 3ML SQ SCH (07:30)
--- NOTE | 2024-10-06 08:49 | HMCIMG ---
PORTABLE CHEST RADIOGRAPH INDICATION: CHEST PAIN COMPARISON: 04/01/2008 FINDINGS: hospital monitor leads overlie the field of view. Heart size is normal. The pulmonary vascularity and brandon appear normal. No abnormal pulmonary parenchymal opacity or consolidation identified. No significant pleural effusion noted. No pneumothorax detected. IMPRESSION: No radiographic evidence for any acute cardiopulmonary process.
[2024-10-06] MEDS ORDERED: HEParin 5,000 UNIT VIAL SQ SCH (09:00)
[2024-10-06] MEDS: ASPIRIN 81MG CHEW TAB PO SCH (09:06)
[2024-10-06] MEDS: PANTOPrazole 40 MG TAB DR PO SCH (09:06)
--- NOTE | 2024-10-06 11:25 | PN ---
[facility] PROGRESS NOTE Date of Service: Oct 06, 2024 Time of Service: 11:24 SUBJECTIVE: [ ] 10/06/24 patient was seen and examined in the ER. She reports that she was doing much better. She denies any chest pain. And she tells me that she came in because she had back pain radiating to bilateral shoulders. She does go to chiropractor to get this resolved but this time it was more persistent REVIEW OF SYSTEMS CONSTITUTIONAL: Denies fevers, chills, or night sweats. No unintentional weight loss reported. NEUROLOGICAL: Denies headache, amaurosis fugax, motor weakness, sensory deficit, vertigo/spinning sensation, gait abnormalities, or tremors. ENT: No hearing loss, otalgia, otorrhea, rhinitis, rhinorrhea, hoarseness, or sore throat. CARDIOVASCULAR: Denies any exertional angina, dyspnea on exertion, orthopnea, paroxysmal nocturnal dyspnea, palpitations, life-threatening arrhythmias, claudication. PULMONARY: Denies any shortness of breath, cough, phlegm/sputum, hemoptysis, pleuritic chest pain. SLEEP: Denies morning headaches, daytime somnolence or napping. Denies difficulty falling asleep, staying asleep, waking from sleep. Denies knowledge of snoring. GASTROINTESTINAL: Denies any type of dysphagia to either liquids or solids. Denies nausea, vomiting, pyrosis, early satiety, abdominal pain, diarrhea, constipation, or changes in stool consistency or caliber. Denies coffee-ground emesis, hematemesis, hematochezia, or melanotic stools. GENITOURINARY: Denies frequency, urgency, nocturia, hematuria or incontinence (Storage/Irritative symptoms.) Low urinary stream, straining to void, urinary intermittency or hesitancy, splitting of the voiding stream, terminal dribbling. ENDOCRINOLOGIC: Denies polyuria, polydipsia, polyphagia or heat/cold intolerances. HEMATOLOGIC: Denies thrombophilia/previous clots, or coagulopathy/bleeding disorders. ONCOLOGIC: Denies personal history of malignancy. DERMATOLOGIC: Denies rashes or pruritus. PSYCHIATRIC: Denies any suicidal or homicidal ideation. Denies hallucinations. PHYSICAL EXAM GENERAL APPEARANCE: The patient is awake, alert, and oriented, in no acute cardiopulmonary distress. NEUROLOGICAL: Cranial nerves II-XII grossly intact. Motor is 5/5 in bilateral upper and lower extremities proximal to distal. No sensory deficits. HEENT: Face is symmetric. Pupils are equal and reactive. Extraocular movements are intact. NECK: Supple. No JVD. No thyromegaly. No submental, submandibular, pre- /postauricular, occipital or supraclavicular lymphadenopathy. CHEST: Normal chest expansion. No Telemetry. LUNGS: Absence of any rales, rhonchi or any wheezing. CARDIOVASCULAR: Regular. S1 and S2 normal. No appreciable rubs, murmurs or gallops. ABDOMEN: Soft, nontender, and nondistended. There is no rebound, voluntary guarding, or rigidity. : Deferred. No Rosa. EXTREMITIES: Non-edematous and not cyanotic. No clubbing. Good capillary refill. SKIN: No skin breakdown. Vital Signs (last 8hr) Date Time Temp Pulse Resp B/P (MAP) Pulse Ox O2 Delivery O2 Flow Rate FiO2 10/06/24 07:08 97.7 69 14 117/70 99 Room Air* 0 21 10/06/24 05:19 97.7 65 13 121/61 97 Room Air* 0 21 10/06/24 03:33 97.7 77 14 134/72 98 Room Air* 0 21 LABS: Laboratory: Test 10/06/24 09:33 10/06/24 08:50 10/06/24 06:36 10/06/24 04:40 Range/Units Troponin I High Sensitivity 15913 *H 4-50 ng/L Whole Blood Glucose 131 H 70-110 MG/DL Prothrombin Time 11.1 9.6-11.6 SEC Prothromb Time International Ratio 0.99 0.85-1.15 Activated Partial Thromboplast Time 28.0 26.3-35.5 SEC White Blood Count 11.6 H 4.8-10.8 K/uL Red Blood Count 4.12 4.00-5.50 MIL/uL Hemoglobin 12.6 12.0-16.0 g/dL Hematocrit 38.4 36-48 % Mean Corpuscular Volume 93.2 79-99 fL Mean Corpuscular Hemoglobin 30.6 27.0-33.0 pg Mean Corpuscular Hemoglobin Concent 32.8 32.0-36.0 g/dL Red Cell Distribution Width 13.2 11.0-15.5 % Platelet Count 290 130-400 K/uL Mean Platelet Volume 9.3 7.5-10.5 fL Immature Granulocyte % (Auto) 0.4 0-1 % Neutrophils (%) (Auto) 70.8 40.0-77.0 % Lymphocytes (%) (Auto) 18.2 L 21.0-51.0 % Monocytes (%) (Auto) 9.0 3.0-13.0 % Eosinophils (%) (Auto) 0.9 0.0-8.0 % Basophils (%) (Auto) 0.7 0.0-5.0 % Neutrophils # (Auto) 8.2 H 1.8-7.7 K/uL Lymphocytes # (Auto) 2.1 1.0-4.8 K/uL Monocytes # (Auto) 1.0 0.1-1.0 K/uL Eosinophils # (Auto) 0.10 0.00-0.70 K/uL Basophils # (Auto) 0.08 0.00-0.20 K/uL Absolute Immature Granulocyte (auto 0.05 0-1 K/uL Nucleated Red Blood Cells 0.0 0.0-0.19 % Sodium Level 141 136-145 mmol/L Potassium Level 4.5 3.5-5.1 mmol/L Chloride Level 106 101-111 mmol/L Carbon Dioxide Level 28 21-32 mmol/L Blood Urea Nitrogen 19 H 7-18 mg/dL Creatinine 0.9 0.5-1.0 mg/dL Glomerular Filtration Rate Calc 65 >90 mL/min Random Glucose 131 H 70-105 mg/dL Total Calcium 8.7 8.5-10.1 mg/dL Phosphorus Level 3.7 2.5-4.9 mg/dL Magnesium Level 1.80 1.80-2.40 mg/dL Thyroid Stimulating Hormone (TSH) 1.83 0.36-3.74 uIU/mL Test 10/05/24 23:14 10/05/24 22:23 10/05/24 21:48 Range/Units Urine Color COLORLESS YELLOW Urine Appearance CLEAR CLEAR Urine pH 7.5 5.0-8.0 Urine Specific [place] 1.009 1.001-1.031 Urine Protein NEGATIVE NEGATIVE mg/dL Urine Glucose (UA) NEGATIVE NEGATIVE mg/dL Urine Ketones NEGATIVE NEGATIVE mg/dL Urine Occult Blood NEGATIVE NEGATIVE Urine Nitrate NEGATIVE NEGATIVE Urine Bilirubin NEGATIVE NEGATIVE mg/dL Urine Urobilinogen 0.2 0.2-1.0 mg/dL Urine Leukocyte Esterase NEGATIVE NEGATIVE Jacy/uL Troponin I 0.09 H 0.00-0.05 ng/mL Hemoglobin A1c 7.1 H 4.0-6.0 % Estimated Average Glucose (eAG) 157 H 70-126 mg/dL Total Creatine Kinase 69 21-232 U/L B-Type Natriuretic Peptide 85 0-100 pg/mL Current Medications Medications (Trade) Dose Ordered Sig/Rashad Route PRN Reason Start Time Stop Time Status Last Admin Dose Admin Acetaminophen (TYLenol 325MG TAB) 650 mg Q6H PRN PO TEMPERATURE GREATER THAN 101.5 10/05/24 23:30 11/04/24 23:29 Aspirin (Aspirin 81mg Chew Tab) 81 mg DAILY PO 10/06/24 09:00 11/05/24 08:59 10/06/24 09:06 81 MG Heparin Sodium (Porcine) (HEParin 5,000 UNIT VIAL) *calculation based on ACTUAL B... AD PRN IV HEPARIN PROTOCOL 10/06/24 07:30 11/05/24 07:29 10/06/24 07:19 3,877.5 UNIT Heparin Sodium (Porcine) (HEParin 5,000 UNIT VIAL) 5,000 unit BID SQ 10/06/24 09:00 10/06/24 06:29 DC Heparin Sodium/ Dextrose 250 ml @ 0 mls/hr Q6H IV 10/06/24 07:30 11/05/24 07:29 10/06/24 07:20 8.78 MLS/HR Insulin Human Regular (humuLIN R 100 UNIT/ML 3ML) INSULIN SLIDING SCAL... ACHS SQ 10/06/24 07:30 11/05/24 07:29 Magnesium Sulfate 50 ml @ 0 mls/hr PROTOCOL PRN IV h 10/05/24 23:30 11/04/24 23:29 Nitroglycerin (Nitroglycerin 1gm Oint) 0.5 inch Q8H TD 10/05/24 23:30 11/04/24 23:29 10/06/24 08:59 0.5 INCH Nitroglycerin (Nitrostat) 0.4 mg AD PRN SL CHEST PAIN 10/05/24 22:30 11/04/24 22:29 Ondansetron HCl (zoFRAN 4MG INJ) 4 mg Q6H PRN IV NAUSEA/VOMITING 10/05/24 23:30 11/04/24 23:29 Pantoprazole Sodium (PROTonix 40MG TAB) 40 mg DAILY PO 10/06/24 09:00 11/05/24 08:59 10/06/24 09:06 40 MG Potassium Chloride 100 ml @ 100 mls/hr AD PRN IV POTASSIUM PROTOCOL 10/05/24 23:30 11/04/24 23:29 Potassium Chloride (K-Dur/Klor-Con 20meq) 20 meq AD PRN PO POTASSIUM PROTOCOL 10/05/24 23:30 11/04/24 23:29 Potassium Chloride (KCl 10% Elixir 20meq/15ml) 20 meq AD PRN PO POTASSIUM PROTOCOL 10/05/24 23:30 11/04/24 23:29 DIAGNOSTICS / RADIOLOGY: [ ] ASSESSMENT: Chest pain, POA Abnormal EKG, POA Elevated troponin, POA CKD stage IIIA, POA uncontrolled Diabetes mellitius type2, POA Hypertension Hypothyroidism] PLAN: [ Admit patient to PCCU as inpatient status. Place patient on telemetry monitoring. Administer aspirin 162 mg by mouth times 1 dose Continue aspirin 81 mg by mouth once daily Nitropaste 0.5 inches anterior chest wall every 8 hours Trend troponin every 6 hours x 3 sets Supplemental oxygen to maintain O2 saturation greater than 92% Patient will be followed by cardiology service, Dr. Miranda Avoid nephrotoxic agents when possible Renally dose all medications when possible Monitor intake and output Weight patient daily Monitor patient's labs Check hemoglobin A1c in a.m. Glucometer checks a.c. and HS 1800 ADA diet Humulin R sliding scale Check TSH in a.m., Consider resuming home medications once they are reconciled For now, Hydralazine 10 mg IV every 4 hours for systolic blood pressure greater than 160 mmHg GI prophylaxis, Protonix DVT prophylaxis, heparin ADVANCED CARE PLANNING 1. Which of the following were discussed? Hospice Care - Yes Therapeutic options - Yes Advance Directives - Yes- patient states he does not have any advance directives in place at this time, however her has been can make decisions for her if she becomes unable. Other discussions - patient wishes to remain a full code at this time 2. Discussed with who? Patient 3. Voluntary nature of this service was explained to the patient? Yes 4. Amount of time spent - ____ 16 minutes ___ JOSEY JACOME MD Oct 06, 2024 11:25
[2024-10-06 13:15] LABS: INR 0.98 (0.85-1.15)
[2024-10-06 13:16] LABS: PARTIAL THROMBOPLASTIN TIME 67.2 SEC (26.3-35.5)
--- NOTE | 2024-10-06 14:00 | NUR ---
SIV ENGLISH PROFESSOR AT BEDSIDE
--- NOTE | 2024-10-06 14:21 | CONS ---
CONSULT NOTE: CARDIOLOGY Reason for consult: NSTEMI HPI/story at presentation: This is a pleasant 79-year-old female with past medical history as below presents for chest discomfort. Patient was having mostly back pain and bilateral shoulder pain that was present yesterday morning and then subsequently, was in the ER for further evaluation and had significant elevated troponins therefore, cardiology was consulted for further evaluation and management Subjective: 10/06/2024 no active cardiac complaints Past medical history: See below Allergies, Meds See chart Review of systems Review of Systems Constitutional: Negative for chills and fever. HENT: Negative for ear discharge and ear pain. Eyes: Negative for photophobia and discharge. Respiratory: Negative for cough, sputum production and stridor. Cardiovascular: Negative for chest pain and palpitations. Gastrointestinal: Negative for diarrhea and vomiting. Genitourinary: Negative for frequency. Musculoskeletal: Negative for myalgias. Skin: Negative for rash. Neurological: Negative for focal weakness and seizures. Endo/Heme/Allergies: Negative for polydipsia. Psychiatric/Behavioral: Negative for hallucinations. Vitals see chart PHYSICAL EXAMINATION GENERAL: The patient is alert and oriented*3 HEENT: Nonicteric sclerae, non traumatic HEART: Regular rate and rhythm with no murmurs LUNGS: Clear to auscultation bilaterally ABDOMEN: No acute issues, non tender GENITAL, RECTAL: deferred SKIN: No rash NEUROLOGIC: NFND EXTREMITIES: No edema ASSESSMENT NSTEMI On anticoagulation with heparin, 09/2024 With abnormal EKG Elevated troponins Troponin greater than 18,000, 10/06/2024 CHRONIC KIDNEY DISEASE HYPERTENSION CORE MEASURES On aspirin OTHER MEDICAL PROBLEMS Hypothyroidism PLAN 10/06/2024 patient with NSTEMI, atypical chest pain at presentation, EKG changes. Plan for cardiac catheterization tomorrow to further evaluate coronaries Echo pending. risk-benefit discussed extensively and patient wants to proceed. ATTESTATION I was involved substantially in the care of this patient Number and complexity of problems addressed: 1 acute illness with systemic feat ures Amount and or complexity of data Review of prior external note(s) from each unique source: 2+ Ordering of each unique test : 0 Review of the result(s) of each unique test: 2+ Assessment requiring an independent historian(s): No Independent interpretation of test performed by another MD/QHCP/appropriate source (not separately reported) : No Discussion of management or test interpretation with external MD/QHCP/appropriate source (not separately reported) : No Risk status (cardiac, billing related): High GUANACO ORELLANA MD Oct 06, 2024 14:21
[2024-10-06] MEDS: acetaMINOPHEN 325 MG TAB PO PRN (16:01)
[2024-10-06] MEDS ORDERED: VALS1TAB81 PO (19:31)
[2024-10-06] MEDS ORDERED: LEVO100C4 PO (19:31)
--- NOTE | 2024-10-06 19:41 | NUR ---
MED REC DONE AT THIS TIME.
[2024-10-06 21:01] LABS: INR 1.02 (0.85-1.15); PROTHROMBIN TIME 11.4 SEC (9.6-11.6)
[2024-10-06 21:03] LABS: PARTIAL THROMBOPLASTIN TIME 72.1 SEC (26.3-35.5)
[2024-10-06] MEDS: atorVAStatin 40 MG TABLET PO ONE (21:22)
[2024-10-06] MEDS: cloPIDOgrel 75MG TAB PO ONE (21:22)
[2024-10-06] MEDS ORDERED: 0.9% NACL 500ML IV.SOLN 500 ML IV SCH (21:30)
[2024-10-07] VITALS (12 sets, daily range): BP systolic 124–154; BP diastolic 67–87; PULSE 69–90; RESP 18–21; TEMP 98–98.6; O2SAT 98
--- NOTE | 2024-10-07 00:56 | NUR ---
REPORT GIVEN TO ELIZABETH BERMUDEZ
[2024-10-07] MEDS: 0.9%NACL 10ML VIAL IVP SCH (01:30)
--- NOTE | 2024-10-07 03:07 | NUR ---
assisted patient to bathroom and back to bed, denies any pain at this time
[2024-10-07 04:02] LABS: INR 1.06 (0.85-1.15); PROTHROMBIN TIME 11.8 SEC (9.6-11.6)
[2024-10-07 04:21] LABS: PARTIAL THROMBOPLASTIN TIME 114.6 SEC (26.3-35.5)
--- NOTE | 2024-10-07 06:46 | EKG ---
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
[2024-10-07 06:49] LABS: BASOPHILS # (AUTO) 0.08 K/uL (0.00-0.20); BASOPHILS % (AUTO) 0.8 % (0.0-5.0); EOSINOPHILS # (AUTO) 0.14 K/uL (0.00-0.70); EOSINOPHILS % (AUTO) 1.3 % (0.0-8.0); HEMATOCRIT 40.1 % (36-48); IMMATURE GRANULOCYTE ABSOLUTE 0.05 K/uL (0-1); LYMPHOCYTES # (AUTO) 2.3 K/uL (1.0-4.8); LYMPHOCYTES % (AUTO) 21.8 % (21.0-51.0); MEAN CORPUSCULAR HGB CONC 33.7 g/dL (32.0-36.0); MONOCYTES # (AUTO) 1.1 K/uL (0.1-1.0); MONOCYTES % (AUTO) 10.8 % (3.0-13.0); NEUTROPHILS # (AUTO) 6.7 K/uL (1.8-7.7); NEUTROPHILS % (AUTO) 64.8 % (40.0-77.0); PLATELET COUNT (AUTO) 298 K/uL (130-400); RED BLOOD CELL COUNT(AUTO) 4.36 MIL/uL (4.00-5.50); RED CELL DISTRIBUTION WIDTH 13.2 % (11.0-15.5); WHITE BLOOD COUNT (AUTO) 10.4 K/uL (4.8-10.8)
[2024-10-07 06:57] LABS: CREATININE 0.8 mg/dL (0.5-1.0); POTASSIUM 4.3 mmol/L (3.5-5.1)
[2024-10-07] MEDS: metoPROLOL tartRATE 25 MG TAB PO SCH (10:00)
--- NOTE | 2024-10-07 11:24 | PN ---
CARDIOLOGY Reason for consult: NSTEMI HPI/story at presentation: This is a pleasant 79-year-old female with past medical history as below presents for chest discomfort. Patient was having mostly back pain and bilateral shoulder pain that was present yesterday morning and then subsequently, was in the ER for further evaluation and had significant elevated troponins therefore, cardiology was consulted for further evaluation and management Subjective: 10/06/2024 no active cardiac complaints 10/07/2024 no chest pain Past medical history: See below Allergies, Meds See chart Review of systems Review of Systems Constitutional: Negative for chills and fever. HENT: Negative for ear discharge and ear pain. Eyes: Negative for photophobia and discharge. Respiratory: Negative for cough, sputum production and stridor. Cardiovascular: Negative for chest pain and palpitations. Gastrointestinal: Negative for diarrhea and vomiting. Genitourinary: Negative for frequency. Musculoskeletal: Negative for myalgias. Skin: Negative for rash. Neurological: Negative for focal weakness and seizures. Endo/Heme/Allergies: Negative for polydipsia. Psychiatric/Behavioral: Negative for hallucinations. Vitals see chart PHYSICAL EXAMINATION GENERAL: The patient is alert and oriented*3 HEENT: Nonicteric sclerae, non traumatic HEART: Regular rate and rhythm with no murmurs LUNGS: Clear to auscultation bilaterally ABDOMEN: No acute issues, non tender GENITAL, RECTAL: deferred SKIN: No rash NEUROLOGIC: NFND EXTREMITIES: No edema ASSESSMENT NSTEMI On anticoagulation with heparin, 09/2024 With abnormal EKG Elevated troponins Troponin greater than 18,000, 10/06/2024 CARDIOMYOPATHY EF 35-40% 09/2024 CHRONIC KIDNEY DISEASE HYPERTENSION CORE MEASURES On aspirin OTHER MEDICAL PROBLEMS Hypothyroidism PLAN 10/06/2024 patient with NSTEMI, atypical chest pain at presentation, EKG changes. Plan for cardiac catheterization tomorrow to further evaluate coronaries Echo pending. risk-benefit discussed extensively and patient wants to proceed. 10/07/2024 Cardiac catheterization today for further evaluation of non-STEMI. Risk-benefit discussed. Primary team addressing possible scleroderma given issues with dysphagia. No active chest pain at this time echo with EF of 35- 40%, on metoprolol aspirin - add statin ATTESTATION I was involved substantially in the care of this patient Number and complexity of problems addressed: 1 acute illness with systemic features Amount and or complexity of data Review of prior external note(s) from each unique source: 2+ Ordering of each unique test : 0 Review of the result(s) of each unique test: 2+ Assessment requiring an independent historian(s): No Independent interpretation of test performed by another MD/QHCP/appropriate source (not separately reported) : No Discussion of management or test interpretation with external MD/QTRACYP/appropriate source (not separately reported) : No Risk status (cardiac, billing related): High Vitals/Labs Vital Signs Date Time Temp Pulse Resp B/P (MAP) Pulse Ox O2 Delivery O2 Flow Rate FiO2 10/07/24 08:00 98.6 87 16 127/75 100 Room Air* 0 21 Laboratory Tests 10/07/24 06:35 Medications Current Medications Morphine Sulfate 2 mg ONCE ONCE IVP Last administered on 10/05/24at 22:22; Start 10/05/24 at 22:30; Stop 10/05/24 at 22:31; Status DC Ketorolac Tromethamine 15 mg ONCE ONCE IV Last administered on 10/05/24at 23:34; Start 10/05/24 at 22:30; Stop 10/05/24 at 22:31; Status DC Nitroglycerin 0.4 mg AD PRN SL; Start 10/05/24 at 22:30; Stop 11/04/24 at 22:29 Aspirin 162 mg ONCE ONCE PO Last administered on 10/05/24at 23:32; Start 10/05/24 at 23:30; Stop 10/05/24 at 23:31; Status DC Aspirin 81 mg DAILY PO Last administered on 10/07/24at 10:00; Start 10/06/24 at 09:00; Stop 11/05/24 at 08:59 Nitroglycerin 0.5 inch Q8H TD Last administered on 10/06/24at 20:32; Start 10/05/24 at 23:30; Stop 11/04/24 at 23:29 Ondansetron HCl 4 mg Q6H PRN IV; Start 10/05/24 at 23:30; Stop 11/04/24 at 23:29 Heparin Sodium (Porcine) 5,000 unit BID SQ; Start 10/06/24 at 09:00; Stop 10/06/24 at 06:29; Status DC Pantoprazole Sodium 40 mg DAILY PO Last administered on 10/07/24at 10:00; Start 10/06/24 at 09:00; Stop 11/05/24 at 08:59 Acetaminophen 650 mg Q6H PRN PO Last administered on 10/06/24at 16:01; Start 10/05/24 at 23:30; Stop 11/04/24 at 23:29 Insulin Human Regular INSULIN SLIDING SCAL... ACHS SQ; Start 10/06/24 at 07:30; Stop 11/05/24 at 07:29 Potassium Chloride 100 ml @ 100 mls/hr AD PRN IV; Start 10/05/24 at 23:30; Stop 11/04/24 at 23:29 Potassium Chloride 20 meq AD PRN PO; Start 10/05/24 at 23:30; Stop 11/04/24 at 23:29 Potassium Chloride 20 meq AD PRN PO; Start 10/05/24 at 23:30; Stop 11/04/24 at 23:29 Magnesium Sulfate 50 ml @ 0 mls/hr PROTOCOL PRN IV; Start 10/05/24 at 23:30; Stop 11/04/24 at 23:29 Heparin Sodium (Porcine) *calculation based on ACTUAL B... AD PRN IV Last administered on 10/06/24at 07:19; Start 10/06/24 at 07:30; Stop 11/05/24 at 07:29 Heparin Sodium/ Dextrose 250 ml @ 0 mls/hr Q6H IV Last administered on 10/06/24at 21:20; Start 10/06/24 at 07:30; Stop 11/05/24 at 07:29 Atorvastatin Calcium 40 mg ONCE ONCE PO Last administered on 10/06/24at 21:22; Start 10/06/24 at 21:30; Stop 10/06/24 at 21:31; Status DC Clopidogrel Bisulfate 75 mg ONCE ONCE PO Last administered on 10/06/24at 21:22; Start 10/06/24 at 21:30; Stop 10/06/24 at 21:31; Status DC Metoprolol Tartrate 12.5 mg BID PO Last administered on 10/07/24at 10:00; Start 10/07/24 at 09:00; Stop 11/06/24 at 08:59 Sodium Chloride 500 ml @ 0 mls/hr Q0M IV; Start 10/06/24 at 21:30; Stop 11/05/24 at 21:29 GUANACO ORELLANA MD Oct 07, 2024 11:24
--- NOTE | 2024-10-07 11:32 | NUR ---
DCP: HOME Sw met with pt who lives independently at home with her Addi Ellis ([phone]). Daughter Brandy Rutledge [phone] is er contact since is hard of hearing. Pt states she is active and drives, able to complete her ADLS on her own. Uses no DME or in home care services. PCP is iPto [facility] and uses [facility] for rx. DCP is home Addendum: 10/07/24 at 1136 by MIRIAN MASSEY SS Amended: Links added.
--- NOTE | 2024-10-07 15:32 | PN ---
[facility] PROGRESS NOTE Date of Service: Oct 07, 2024 Time of Service: 15:23 SUBJECTIVE: Ms. Mac is a 79-year-old female that was seen and examined today on 10/05/2024. Patient is a good historian and personal health. Patient states that she came to the emergency department with a chief complaint of bilateral chest wall pain closer to the axilla and pain also radiates to the back. Onset was 9:30 a.m.. Character is described as throbbing. Symptoms are aggravated with palpation and movement. Symptoms are not alleviated with a chiropractic adjustment in fact symptoms became worse after a chiropractic adjustment. There was no alleviating factors Duration of pain is on and off. Patient denies any associated shortness of breath, nausea, vomiting, headache, dizziness. Today in the emergency department CBC unremarkable, troponin 378 (high sensitivity), creatinine 1.1, glucose 208 mg/dL, GFR 51, no urinalysis has been collected or sent to lab. Emergency room initial impression and EKG is that there is new T-wave inversions signifying a change from previous EKGs one week ago at a prior emergency room visit. For this reason emergency room physician recommended patient be admitted with a diagnosis of chest pain. 10/06/24 patient was seen and examined in the ER. She reports that she was doing much better. She denies any chest pain. And she tells me that she came in because she had back pain radiating to bilateral shoulders. She does go to chiropractor to get this resolved but this time it was more persistent 10/07/2024 - patient is seen at bedside in the room ER 5. Patient denies any active chest pain, shortness of breath, nausea, vomiting. 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 Patient informed about her extremities getting cold and color change to purplish red and about her joint problems and trouble of food getting stuck in the esophagus after swallowing , immunology workup is planned to rule out limited scleroderma . Patient is hemodynamically stable with temperature 98.6, pulse 77, respiratory rate 17, blood pressure 146/77, pulse oximetry 99% on room air. Patient's labs shows WBC 10.4, hemoglobin 13.5, chemistries show sodium 141, potassium 4.3, creatinine 0.8, BUN 14. Patient is currently on metoprolol, pantoprazole, aspirin, heparin, nitroglycerin. Patient will be followed [facility], we will follow Cardiology recommendations. REVIEW OF SYSTEMS CONSTITUTIONAL: Denies fevers, chills, or night sweats. No unintentional weight loss reported. NEUROLOGICAL: Denies headache, amaurosis fugax, motor weakness, sensory deficit, vertigo/spinning sensation, gait abnormalities, or tremors. ENT: No hearing loss, otalgia, otorrhea, rhinitis, rhinorrhea, hoarseness, or sore throat. CARDIOVASCULAR: Denies any exertional angina, dyspnea on exertion, orthopnea, paroxysmal nocturnal dyspnea, palpitations, life-threatening arrhythmias, claudication. PULMONARY: Denies any shortness of breath, cough, phlegm/sputum, hemoptysis, pleuritic chest pain. SLEEP: Denies morning headaches, daytime somnolence or napping. Denies difficulty falling asleep, staying asleep, waking from sleep. Denies knowledge of snoring. GASTROINTESTINAL: Denies any type of dysphagia to either liquids or solids. Denies nausea, vomiting, pyrosis, early satiety, abdominal pain, diarrhea, constipation, or changes in stool consistency or caliber. Denies coffee-ground emesis, hematemesis, hematochezia, or melanotic stools. GENITOURINARY: Denies frequency, urgency, nocturia, hematuria or incontinence (Storage/Irritative symptoms.) Low urinary stream, straining to void, urinary intermittency or hesitancy, splitting of the voiding stream, terminal dribbling. ENDOCRINOLOGIC: Denies polyuria, polydipsia, polyphagia or heat/cold intolerances. HEMATOLOGIC: Denies thrombophilia/previous clots, or coagulopathy/bleeding disorders. ONCOLOGIC: Denies personal history of malignancy. DERMATOLOGIC: Denies rashes or pruritus. PSYCHIATRIC: Denies any suicidal or homicidal ideation. Denies hallucinations. PHYSICAL EXAM GENERAL APPEARANCE: The patient is awake, alert, and oriented, in no acute cardiopulmonary distress. NEUROLOGICAL: Cranial nerves II-XII grossly intact. Motor is 5/5 in bilateral upper and lower extremities proximal to distal. No sensory deficits. HEENT: Face is symmetric. Pupils are equal and reactive. Extraocular movements are intact. NECK: Supple. No JVD. No thyromegaly. No submental, submandibular, pre- /postauricular, occipital or supraclavicular lymphadenopathy. CHEST: Normal chest expansion. No Telemetry. LUNGS: Absence of any rales, rhonchi or any wheezing. CARDIOVASCULAR: Regular. S1 and S2 normal. No appreciable rubs, murmurs or gallops. ABDOMEN: Soft, nontender, and nondistended. There is no rebound, voluntary guarding, or rigidity. : Deferred. No Rosa. EXTREMITIES: Non-edematous and not cyanotic. No clubbing. Good capillary refill. SKIN: No skin breakdown. Vital Signs (last 8hr) Date Time Temp Pulse Resp B/P (MAP) Pulse Ox O2 Delivery O2 Flow Rate FiO2 10/07/24 14:53 98.6 77 17 146/77 99 Room Air* 0 21 10/07/24 08:00 98.6 87 16 127/75 100 Room Air* 0 21 LABS: Laboratory: Test 10/07/24 10:17 10/07/24 06:35 10/07/24 02:50 10/06/24 20:34 Range/Units Activated Partial Thromboplast Time 81.6 #H 26.3-35.5 SEC White Blood Count 10.4 4.8-10.8 K/uL Red Blood Count 4.36 4.00-5.50 MIL/uL Hemoglobin 13.5 12.0-16.0 g/dL Hematocrit 40.1 36-48 % Mean Corpuscular Volume 92.0 79-99 fL Mean Corpuscular Hemoglobin 31.0 27.0-33.0 pg Mean Corpuscular Hemoglobin Concent 33.7 32.0-36.0 g/dL Red Cell Distribution Width 13.2 11.0-15.5 % Platelet Count 298 130-400 K/uL Mean Platelet Volume 9.5 7.5-10.5 fL Immature Granulocyte % (Auto) 0.5 0-1 % Neutrophils (%) (Auto) 64.8 40.0-77.0 % Lymphocytes (%) (Auto) 21.8 21.0-51.0 % Monocytes (%) (Auto) 10.8 3.0-13.0 % Eosinophils (%) (Auto) 1.3 0.0-8.0 % Basophils (%) (Auto) 0.8 0.0-5.0 % Neutrophils # (Auto) 6.7 1.8-7.7 K/uL Lymphocytes # (Auto) 2.3 1.0-4.8 K/uL Monocytes # (Auto) 1.1 H 0.1-1.0 K/uL Eosinophils # (Auto) 0.14 0.00-0.70 K/uL Basophils # (Auto) 0.08 0.00-0.20 K/uL Absolute Immature Granulocyte (auto 0.05 0-1 K/uL Nucleated Red Blood Cells 0.0 0.0-0.19 % Sodium Level 141 136-145 mmol/L Potassium Level 4.3 3.5-5.1 mmol/L Chloride Level 105 101-111 mmol/L Carbon Dioxide Level 27 21-32 mmol/L Blood Urea Nitrogen 14 7-18 mg/dL Creatinine 0.8 0.5-1.0 mg/dL Glomerular Filtration Rate Calc 75 >90 mL/min Random Glucose 124 H 70-105 mg/dL Total Calcium 8.7 8.5-10.1 mg/dL Prothrombin Time 11.8 H 9.6-11.6 SEC Prothromb Time International Ratio 1.06 0.85-1.15 Troponin I High Sensitivity 6534 *H 4-50 ng/L Test 10/06/24 20:26 10/06/24 04:40 10/05/24 23:14 10/05/24 22:23 Range/Units Whole Blood Glucose 132 H 70-110 MG/DL Phosphorus Level 3.7 2.5-4.9 mg/dL Magnesium Level 1.80 1.80-2.40 mg/dL Thyroid Stimulating Hormone (TSH) 1.83 0.36-3.74 uIU/mL Urine Color COLORLESS YELLOW Urine Appearance CLEAR CLEAR Urine pH 7.5 5.0-8.0 Urine Specific Union 1.009 1.001-1.031 Urine Protein NEGATIVE NEGATIVE mg/dL Urine Glucose (UA) NEGATIVE NEGATIVE mg/dL Urine Ketones NEGATIVE NEGATIVE mg/dL Urine Occult Blood NEGATIVE NEGATIVE Urine Nitrate NEGATIVE NEGATIVE Urine Bilirubin NEGATIVE NEGATIVE mg/dL Urine Urobilinogen 0.2 0.2-1.0 mg/dL Urine Leukocyte Esterase NEGATIVE NEGATIVE Jacy/uL Troponin I 0.09 H 0.00-0.05 ng/mL Test 10/05/24 21:48 Range/Units Hemoglobin A1c 7.1 H 4.0-6.0 % Estimated Average Glucose (eAG) 157 H 70-126 mg/dL Total Creatine Kinase 69 21-232 U/L B-Type Natriuretic Peptide 85 0-100 pg/mL Current Medications Medications (Trade) Dose Ordered Sig/Rashad Route PRN Reason Start Time Stop Time Status Last Admin Dose Admin Acetaminophen (TYLenol 325MG TAB) 650 mg Q6H PRN PO TEMPERATURE GREATER THAN 101.5 10/05/24 23:30 11/04/24 23:29 10/06/24 16:01 650 MG Aspirin (Aspirin 81mg Chew Tab) 81 mg DAILY PO 10/06/24 09:00 11/05/24 08:59 10/07/24 10:00 81 MG Heparin Sodium (Porcine) (HEParin 5,000 UNIT VIAL) *calculation based on ACTUAL B... AD PRN IV HEPARIN PROTOCOL 10/06/24 07:30 11/05/24 07:29 10/06/24 07:19 3,877.5 UNIT Heparin Sodium (Porcine) (HEParin 5,000 UNIT VIAL) 5,000 unit BID SQ 10/06/24 09:00 10/06/24 06:29 DC Heparin Sodium/ Dextrose 250 ml @ 0 mls/hr Q6H IV 10/06/24 07:30 11/05/24 07:29 10/06/24 21:20 7.74 MLS/HR Insulin Human Regular (humuLIN R 100 UNIT/ML 3ML) INSULIN SLIDING SCAL... ACHS SQ 10/06/24 07:30 11/05/24 07:29 Magnesium Sulfate 50 ml @ 0 mls/hr PROTOCOL PRN IV h 10/05/24 23:30 11/04/24 23:29 Metoprolol Tartrate (loprESSOR) 12.5 mg BID PO 10/07/24 09:00 11/06/24 08:59 10/07/24 10:00 12.5 MG Nitroglycerin (Nitroglycerin 1gm Oint) 0.5 inch Q8H TD 10/05/24 23:30 11/04/24 23:29 10/06/24 20:32 0.5 INCH Nitroglycerin (Nitrostat) 0.4 mg AD PRN SL CHEST PAIN 10/05/24 22:30 11/04/24 22:29 Ondansetron HCl (zoFRAN 4MG INJ) 4 mg Q6H PRN IV NAUSEA/VOMITING 10/05/24 23:30 11/04/24 23:29 Pantoprazole Sodium (PROTonix 40MG TAB) 40 mg DAILY PO 10/06/24 09:00 11/05/24 08:59 10/07/24 10:00 40 MG Potassium Chloride 100 ml @ 100 mls/hr AD PRN IV POTASSIUM PROTOCOL 10/05/24 23:30 11/04/24 23:29 Potassium Chloride (K-Dur/Klor-Con 20meq) 20 meq AD PRN PO POTASSIUM PROTOCOL 10/05/24 23:30 11/04/24 23:29 Potassium Chloride (KCl 10% Elixir 20meq/15ml) 20 meq AD PRN PO POTASSIUM PROTOCOL 10/05/24 23:30 11/04/24 23:29 Sodium Chloride 500 ml @ 0 mls/hr Q0M IV 10/06/24 21:30 11/05/24 21:29 DIAGNOSTICS / RADIOLOGY: [ ] ASSESSMENT: Chest pain, POA Abnormal EKG, POA Elevated troponin, POA CKD stage IIIA, POA uncontrolled Diabetes mellitius type2, POA Hypertension Hypothyroidism] Possible Raynaud's phenomenon versus limited scleroderma PLAN: [ Admit patient to PCCU as inpatient status. Place patient on telemetry monitoring. Administer aspirin 162 mg by mouth times 1 dose Continue aspirin 81 mg by mouth once daily Nitropaste 0.5 inches anterior chest wall every 8 hours Trend troponin every 6 hours x 3 sets Supplemental oxygen to maintain O2 saturation greater than 92% Patient will be followed by cardiology service, Dr. Miranda Avoid nephrotoxic agents when possible Renally dose all medications when possible Monitor intake and output Weight patient daily Monitor patient's labs Check hemoglobin A1c in a.m. Glucometer checks a.c. and HS 1800 ADA diet Humulin R sliding scale Check TSH in a.m., Consider resuming home medications once they are reconciled For now, Hydralazine 10 mg IV every 4 hours for systolic blood pressure greater than 160 mmHg GI prophylaxis, Protonix DVT prophylaxis, heparin Follow up with the echocardiogram results Follow up with catheterization lab results Follow up with immunology workup ATTESTATION BY PHYSICIAN I have seen and examined the patient. I reviewed the documentation, medical decision making, and treatment plan as noted by the mid-level provider above. I agree with the findings and plan of care. Angel Tyson MD, KEERTI K MD Oct 07, 2024 15:32
--- NOTE | 2024-10-07 16:22 | NUR ---
PT TAKING TO RADIO PRESENTER BY JAMIE BERMUDEZ AT 1420, PT STABLE NO DISTRESS, VITALS WNL NO C/O PAIN NOW. DAUGHTER WILL WAIT IN MAIN LOBBY WITH PERSONAL BELONGINGS.
[2024-10-07] MEDS ORDERED: LIDOCAINE HCL 400MG/20ML VIAL ONE (16:23)
[2024-10-07] MEDS ORDERED: HEParin-NS 1,000 UNIT/500 ML 1,000 ML IV ONE (16:23)
[2024-10-07] MEDS ORDERED: NITROGLYCERIN 50MG VIAL ONE (16:23)
[2024-10-07] MEDS ORDERED: IOHEXOL-350 75 ML VIAL IV ONE (16:23)
[2024-10-07] MEDS ORDERED: HEParin 10,000 UNIT/10ML (1,000 UNIT/ML) VIAL ONE (16:23)
[2024-10-07] MEDS ORDERED: FENTanyl CITRate PF 50 MCG/1 ML 2ML VIAL ONE (16:24)
[2024-10-07] MEDS ORDERED: MIDAZOLAM HCL 1 MG/ML 2ML VIAL ONE (16:24)
[2024-10-07] MEDS ORDERED: niCARDIpine 25MG INJ IV ONE (16:24)
--- NOTE | 2024-10-07 18:05 | NUR ---
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
--- NOTE | 2024-10-07 19:00 | NUR ---
notified Briseida Greer RN of consult for Cv surgery for Dr Licona
[2024-10-07] MEDS: PHARMACY COMMUNICATION MISC SCH (23:37)
[2024-10-08] VITALS (7 sets, daily range): BP systolic 115–146; BP diastolic 62–80; PULSE 69–92; RESP 18–20; TEMP 98–98.9; O2SAT 98
--- NOTE | 2024-10-08 06:18 | HMCSR ---
APPROVED REPORT EXAM: Two-dimensional and M-mode echocardiogram with Doppler and color Doppler. INDICATION ICD: Non ST-elevation OR I21.4 2D Dimensions RVDd2.9 cmLVEF(%)88.0 (>50%)LVED Vol(simp.)82.0 mL IVSd0.6 (0.7-1.1cm)FS(%)58 %LVES Vol(simp.)42.4 mL LVDd4.0 (3.8-5.6cm)LA (2D)3.4 (1.6-4.0cm)LVEF(%, simp.)48 % PWd0.7 (0.7-1.1cm)Ao Root(2D)2.4 (2.0-3.7cm)LA ESV INDEX (4CH)22.50 mL/m2 IVSs0.9 cmLVOT diam1.9 (1.8-2.4cm)LA ESV INDEX (2CH)36.60 mL/m2 LVDs1.7 (2.5-4.0cm)LA ESV INDEX (BP)27.70 mL/m2 PWs1.2 cm M-Mode Dimensions EPSS0.4 cm LA (MM)3.4 (1.6-4.0cm) Ao Root(MM)2.4 (2.0-3.7cm) Aortic Valve AoV VTI0.3 mAo Mean GR3.0 mmHgLVOT VTI0.15 m WILLIE (VMAX)1.7 cm2AVA (VTI) 1.7 cm2 Mitral Valve MV E Vmax77.6 cm/sDECEL Caxg490 ms MV A Xemg992.8 cm/sP 1/2 T69 ms E/A ratio0.7MVA (PHT)3.2 cm2 MR Max PG49 mmHg TDI E/E' Hrilmq28.4E/E' Xmgapen08.9 Medial E' Peak V3.80 cm/sLateral E' Peak V4.10 cm/s Left Ventricle The left ventricle structure and function is normal. Mid to distal anterior wall and apex is hypokine tic There is normal left ventricular wall thickness. LVEF is 35-40% Grade 1 diastolic dysfunction Right Ventricle The right ventricle is normal size. The right ventricular systolic function is normal. Atria The left atrium size is normal. The right atrium size is normal. Aortic Valve The aortic valve is normal in structure and function. No aortic regurgitation is present. There is no aortic valvular stenosis. Mitral Valve The mitral valve is normal in structure and function. There is trace mitral valve regurgitation noted . There is no mitral valve stenosis. Tricuspid Valve The tricuspid valve is normal in structure and function. There is no tricuspid valve regurgitation no gallito. Pulmonic Valve The pulmonary valve is normal in structure and function. There is no pulmonic valvular regurgitation. Great Vessels The aortic root is normal in size. The IVC is normal in size and collapses >50% with inspiration. Pericardium No pericardial effusion. Conclusion LVEF is 35-40% Grade 1 diastolic dysfunction There is normal left ventricular wall thickness. The left ventricle structure and function is normal. Mid to distal anterior wall and apex is hypokinetic No pericardial effusion. Normal pulmonary pressures Study quality was difficult, poor endocardial definition
--- NOTE | 2024-10-08 06:24 | OP ---
Operative Note: DATE OF SERVICE : 10/07/24 1700 PROCEDURES PERFORMED: 1. Left heart catheterization. 2. Selective coronary angiography. 3. Moderate sedation INDICATION FOR PROCEDURE: DESCRIPTION OF PROCEDURE: The patient was brought to the cardiac catheterization lab in fasting state, informed consent was obtained and the patient was prepped and draped in sterile fashion. Mild sedation was administered via versed and fentanyl. I was present during administration of sedation. The right wrist/radial artery region was then anesthetized via 2 mL of 2% lidocaine and the right radial artery was accessed via double wall puncture technique and a 6-Turkmen Radial arterial sheath was advanced over a guidewire using modified Seldinger technique.Next, a 5-Turkmen TIG catheter were advanced over the guidewire to the level of the ascending aorta. The catheter(s) was used to selectively engage the left main coronary artery and RCA. The right coronary artery and LM and its branches were then imaged in multiple planes and views. At the conclusion of the procedure, the patient had the Radial arterial sheath removed in the cardiac catheterization lab with hemostasis obtained via manual hand Band application devise and the patient was transferred to the [employer] observation area. Blood loss was minimal. Moderate sedation: Moderate sedation was used during the procedure, moderate sedation was started at 1645 and completed at 1700 . Patient tolerated the procedure well.Continuous hemodynamic and physiological monitoring was present throughout the procedure. ASA and Mallampatti were assessed prior to the procedure as well. SELECTIVE CORONARY ANGIOGRAPHY: 1. Left main: The left main bifurcates into the left anterior descending and circumflex coronary artery. Distal Left main with 50% stenosis 2. Left anterior descending: The left anterior descending coronary artery gives rise to diagonal(s) and terminates as the apical recurrent branch. Prox LAD with 90% disease 3. Circumflex: The circumflex coronary artery is noted to provide obtuse marginal(s). Prox Cx with 95% disease 4. Right coronary artery: The right coronary artery is dominant and gives PDA and NIKITA. Prox RCA with 50% disease 5. Left ventricular end-diastolic pressure is elevated. There was no gradient noted upon pullback. Impression MVCAD PLAN: CVT surgery consult Aggressive risk factors modification Maximize medical therapy GUANACO ORELLANA MD Oct 08, 2024 06:24
[2024-10-08 07:27] LABS: BASOPHILS # (AUTO) 0.06 K/uL (0.00-0.20); BASOPHILS % (AUTO) 0.6 % (0.0-5.0); EOSINOPHILS # (AUTO) 0.12 K/uL (0.00-0.70); EOSINOPHILS % (AUTO) 1.1 % (0.0-8.0); HEMATOCRIT 36.4 % (36-48); IMMATURE GRANULOCYTE ABSOLUTE 0.05 K/uL (0-1); LYMPHOCYTES # (AUTO) 3.1 K/uL (1.0-4.8); LYMPHOCYTES % (AUTO) 28.7 % (21.0-51.0); MEAN CORPUSCULAR HEMOGLOBIN 30.3 pg (27.0-33.0); MEAN CORPUSCULAR HGB CONC 32.7 g/dL (32.0-36.0); MEAN CORPUSCULAR VOLUME 92.6 fL (79-99); MONOCYTES # (AUTO) 1.1 K/uL (0.1-1.0); MONOCYTES % (AUTO) 10.4 % (3.0-13.0); NEUTROPHILS # (AUTO) 6.3 K/uL (1.8-7.7); NEUTROPHILS % (AUTO) 58.7 % (40.0-77.0); PLATELET COUNT (AUTO) 279 K/uL (130-400); RED BLOOD CELL COUNT(AUTO) 3.93 MIL/uL (4.00-5.50); RED CELL DISTRIBUTION WIDTH 13.2 % (11.0-15.5); WHITE BLOOD COUNT (AUTO) 10.7 K/uL (4.8-10.8)
[2024-10-08 07:41] LABS: CREATININE 0.7 mg/dL (0.5-1.0); POTASSIUM 3.7 mmol/L (3.5-5.1)
--- NOTE | 2024-10-08 08:22 | HMCIMG ---
US CAROTID DUPLEX HISTORY: Preop CABG COMPARISON: None TECHNIQUE: Duplex carotid arterial Doppler ultrasound study was performed. FINDINGS: The common, internal and external carotid arteries are visualized. The peak systolic velocities of right common carotid artery is 90 centimeters per second, right internal carotid artery is 122 centimeters per second, right external carotid artery is 185 centimeters per second, and right vertebral artery is 20 centimeters per second. Right internal carotid artery to right common carotid artery ratio is 1.4. Right vertebral artery is seen with antegrade flow. The peak systolic velocities of left common carotid artery is 100 centimeters per second, left internal carotid artery is 130 centimeters per second, left external carotid artery is 133 centimeters per second, and left vertebral artery is 42 centimeters per second. Left internal carotid artery to left common carotid artery ratio is 1.3. Left vertebral artery is seen with antegrade flow. There are bilateral echogenic plaques. IMPRESSION: 1. No hemodynamically significant lesion is seen of either extracranial carotid artery system.
[2024-10-08 09:23] LABS: ABG BASE EXCESS -4.4 mmol/L (-2.0-3.0); ABG HCO3 18.8 mmol/L (21.0-28.0); ABG OXYGEN SATURATION 97.2 % (94.0-98.0); ABG PCO2 30 mmHg (32-45); ABG PH 7.413 (7.350-7.450); DEVICE COMMENT RR; PO2, ARTERIAL BG 91.8 mmHg (83.0-108.0); VENT MODE, BG ROOM AIR (ROOM AIR)
--- NOTE | 2024-10-08 12:07 | PN ---
[facility] PROGRESS NOTE Date of Service: Oct 08, 2024 Time of Service: 11:57 SUBJECTIVE: Ms. Mac is a 79-year-old female that was seen and examined today on 10/05/2024. Patient is a good historian and personal health. Patient states that she came to the emergency department with a chief complaint of bilateral chest wall pain closer to the axilla and pain also radiates to the back. Onset was 9:30 a.m.. Character is described as throbbing. Symptoms are aggravated with palpation and movement. Symptoms are not alleviated with a chiropractic adjustment in fact symptoms became worse after a chiropractic adjustment. There was no alleviating factors Duration of pain is on and off. Patient denies any associated shortness of breath, nausea, vomiting, headache, dizziness. Today in the emergency department CBC unremarkable, troponin 378 (high sensitivity), creatinine 1.1, glucose 208 mg/dL, GFR 51, no urinalysis has been collected or sent to lab. Emergency room initial impression and EKG is that there is new T-wave inversions signifying a change from previous EKGs one week ago at a prior emergency room visit. For this reason emergency room physician recommended patient be admitted with a diagnosis of chest pain. 10/06/24 patient was seen and examined in the ER. She reports that she was doing much better. She denies any chest pain. And she tells me that she came in because she had back pain radiating to bilateral shoulders. She does go to chiropractor to get this resolved but this time it was more persistent 10/07/2024 - patient is seen at bedside in the room ER 5. Patient denies any active chest pain, shortness of breath, nausea, vomiting. [place] [id number] and is coming down with treatment, patient is planned for slab worker. Patient feels anxious about the upcoming slab worker procedure and question regarding the procedures, all questions were answered. Patient informed about her extremities getting cold and color change to purplish red and about her joint problems and trouble of food getting stuck in the esophagus after swallowing , immunology workup is planned to rule out limited scleroderma . Patient is hemodynamically stable with temperature 98.6, pulse 77, respiratory rate 17, blood pressure 146/77, pulse oximetry 99% on room air. Patient's labs shows WBC 10.4, hemoglobin 13.5, chemistries show sodium 141, potassium 4.3, creatinine 0.8, BUN 14. Patient is currently on metoprolol, pantoprazole, aspirin, heparin, nitroglycerin. Patient will be followed rajiv kuldip, we will follow Cardiology recommendations. 10/08/2024 - patient is seen in room 201, patient denies any symptoms, patient was taken to the slab worker yesterday in the results are as follows SELECTIVE CORONARY ANGIOGRAPHY: 1. Left main: The left main bifurcates into the left anterior descending and circumflex coronary artery. Distal Left main with 50% stenosis 2. Left anterior descending: The left anterior descending coronary artery gives rise to diagonal(s) and terminates as the apical recurrent branch. Prox LAD with 90% disease 3. Circumflex: The circumflex coronary artery is noted to provide obtuse marginal(s). Prox Cx with 95% disease 4. Right coronary artery: The right coronary artery is dominant and gives PDA and NIKITA. Prox RCA with 50% disease 5. Left ventricular end-diastolic pressure is elevated. There was no gradient noted upon pullback. Cardiothoracic surgeon is consulted and Dr. Gregg has ordered an ultrasound carotid has a preoperative procedure. patient will be continued on medical management until the surgery . Patient is currently hemodynamically stable with temperature 98.2, pulse 81, blood pressure 122/80, respiratory rate 18, saturating at 94% on room air. Patient's labs shows WBC 10.7, hemoglobin 11.9 and chemistries show sodium 142, potassium 3.7, creatinine 0.7. Awaiting further instructions from cardio thoracic surgeon. REVIEW OF SYSTEMS CONSTITUTIONAL: Denies fevers, chills, or night sweats. No unintentional weight loss reported. NEUROLOGICAL: Denies headache, amaurosis fugax, motor weakness, sensory deficit, vertigo/spinning sensation, gait abnormalities, or tremors. ENT: No hearing loss, otalgia, otorrhea, rhinitis, rhinorrhea, hoarseness, or sore throat. CARDIOVASCULAR: Denies any exertional angina, dyspnea on exertion, orthopnea, paroxysmal nocturnal dyspnea, palpitations, life-threatening arrhythmias, claudication. PULMONARY: Denies any shortness of breath, cough, phlegm/sputum, hemoptysis, pleuritic chest pain. SLEEP: Denies morning headaches, daytime somnolence or napping. Denies difficulty falling asleep, staying asleep, waking from sleep. Denies knowledge of snoring. GASTROINTESTINAL: Denies any type of dysphagia to either liquids or solids. Denies nausea, vomiting, pyrosis, early satiety, abdominal pain, diarrhea, constipation, or changes in stool consistency or caliber. Denies coffee-ground emesis, hematemesis, hematochezia, or melanotic stools. GENITOURINARY: Denies frequency, urgency, nocturia, hematuria or incontinence (Storage/Irritative symptoms.) Low urinary stream, straining to void, urinary intermittency or hesitancy, splitting of the voiding stream, terminal dribbling. ENDOCRINOLOGIC: Denies polyuria, polydipsia, polyphagia or heat/cold intolerances. HEMATOLOGIC: Denies thrombophilia/previous clots, or coagulopathy/bleeding disorders. ONCOLOGIC: Denies personal history of malignancy. DERMATOLOGIC: Denies rashes or pruritus. PSYCHIATRIC: Denies any suicidal or homicidal ideation. Denies hallucinations. PHYSICAL EXAM GENERAL APPEARANCE: The patient is awake, alert, and oriented, in no acute cardiopulmonary distress. NEUROLOGICAL: Cranial nerves II-XII grossly intact. Motor is 5/5 in bilateral upper and lower extremities proximal to distal. No sensory deficits. HEENT: Face is symmetric. Pupils are equal and reactive. Extraocular movements are intact. NECK: Supple. No JVD. No thyromegaly. No submental, submandibular, pre- /postauricular, occipital or supraclavicular lymphadenopathy. CHEST: Normal chest expansion. No Telemetry. LUNGS: Absence of any rales, rhonchi or any wheezing. CARDIOVASCULAR: Regular. S1 and S2 normal. No appreciable rubs, murmurs or gallops. ABDOMEN: Soft, nontender, and nondistended. There is no rebound, voluntary gu arding, or rigidity. : Deferred. No Rosa. EXTREMITIES: Non-edematous and not cyanotic. No clubbing. Good capillary refill. SKIN: No skin breakdown. Vital Signs (last 8hr) Date Time Temp Pulse Resp B/P (MAP) Pulse Ox O2 Delivery O2 Flow Rate FiO2 10/08/24 08:13 98.2 81 18 122/80 94 Room Air 10/08/24 08:00 98 Room Air* 0 21 10/08/24 04:01 98.8 89 20 115/65 97 Room Air LABS: Laboratory: Test 10/08/24 11:40 10/08/24 09:21 10/08/24 07:04 10/07/24 02:50 Range/Units Whole Blood Glucose 112 H 70-110 MG/DL Blood Gas Specimen Type Arterial Arterial Blood pH 7.413 7.350-7.450 Arterial Blood Partial Pressure CO2 30 L 32-45 mmHg Arterial Blood Partial Pressure O2 91.8 83.0-108.0 mmHg Arterial Blood HCO3 18.8 L 21.0-28.0 mmol/L Arterial Blood Oxygen Saturation 97.2 94.0-98.0 % Arterial Blood Base Excess -4.4 L -2.0-3.0 mmol/L Blood Gas Temperature 37.0 35.5-37.0 CELSIUS Blood Gas Vent Mode ROOM AIR ROOM AIR FiO2 21.0 % Blood Gas Specimen Comment RR White Blood Count 10.7 4.8-10.8 K/uL Red Blood Count 3.93 L 4.00-5.50 MIL/uL Hemoglobin 11.9 L 12.0-16.0 g/dL Hematocrit 36.4 36-48 % Mean Corpuscular Volume 92.6 79-99 fL Mean Corpuscular Hemoglobin 30.3 27.0-33.0 pg Mean Corpuscular Hemoglobin Concent 32.7 32.0-36.0 g/dL Red Cell Distribution Width 13.2 11.0-15.5 % Platelet Count 279 130-400 K/uL Mean Platelet Volume 9.5 7.5-10.5 fL Immature Granulocyte % (Auto) 0.5 0-1 % Neutrophils (%) (Auto) 58.7 40.0-77.0 % Lymphocytes (%) (Auto) 28.7 21.0-51.0 % Monocytes (%) (Auto) 10.4 3.0-13.0 % Eosinophils (%) (Auto) 1.1 0.0-8.0 % Basophils (%) (Auto) 0.6 0.0-5.0 % Neutrophils # (Auto) 6.3 1.8-7.7 K/uL Lymphocytes # (Auto) 3.1 1.0-4.8 K/uL Monocytes # (Auto) 1.1 H 0.1-1.0 K/uL Eosinophils # (Auto) 0.12 0.00-0.70 K/uL Basophils # (Auto) 0.06 0.00-0.20 K/uL Absolute Immature Granulocyte (auto 0.05 0-1 K/uL Nucleated Red Blood Cells 0.0 0.0-0.19 % Activated Partial Thromboplast Time 139.0 #*H 26.3-35.5 SEC Sodium Level 142 136-145 mmol/L Potassium Level 3.7 3.5-5.1 mmol/L Chloride Level 108 101-111 mmol/L Carbon Dioxide Level 23 21-32 mmol/L Blood Urea Nitrogen 15 7-18 mg/dL Creatinine 0.7 0.5-1.0 mg/dL Glomerular Filtration Rate Calc 88 >90 mL/min Random Glucose 79 70-105 mg/dL Total Calcium 8.5 8.5-10.1 mg/dL Prothrombin Time 11.8 H 9.6-11.6 SEC Prothromb Time International Ratio 1.06 0.85-1.15 Test 10/06/24 20:34 Range/Units Troponin I High Sensitivity 6534 *H 4-50 ng/L Current Medications Medications (Trade) Dose Ordered Sig/Rashad Route PRN Reason Start Time Stop Time Status Last Admin Dose Admin Acetaminophen (TYLenol 325MG TAB) 650 mg Q6H PRN PO TEMPERATURE GREATER THAN 101.5 10/05/24 23:30 11/04/24 23:29 10/06/24 16:01 650 MG Aspirin (Aspirin 81mg Chew Tab) 81 mg DAILY PO 10/06/24 09:00 11/05/24 08:59 10/08/24 08:51 81 MG Atorvastatin Calcium (LIPItor 20MG) 20 mg HS PO 10/08/24 21:00 11/07/24 20:59 Heparin Sodium (Porcine) (HEParin 5,000 UNIT VIAL) *calculation based on ACTUAL B... AD PRN IV HEPARIN PROTOCOL 10/06/24 07:30 11/05/24 07:29 10/06/24 07:19 3,877.5 UNIT Heparin Sodium (Porcine) (HEParin 5,000 UNIT VIAL) 5,000 unit BID SQ 10/06/24 09:00 10/06/24 06:29 DC Heparin Sodium/ Dextrose 250 ml @ 0 mls/hr Q6H IV 10/06/24 07:30 11/05/24 07:29 10/08/24 09:39 6.7 MLS/HR Insulin Human Regular (humuLIN R 100 UNIT/ML 3ML) INSULIN SLIDING SCAL... ACHS SQ 10/06/24 07:30 11/05/24 07:29 Magnesium Sulfate 50 ml @ 0 mls/hr PROTOCOL PRN IV h 10/05/24 23:30 11/04/24 23:29 Metoprolol Tartrate (loprESSOR) 12.5 mg BID PO 10/07/24 09:00 11/06/24 08:59 10/08/24 08:52 12.5 MG Nitroglycerin (Nitroglycerin 1gm Oint) 0.5 inch Q8H TD 10/05/24 23:30 11/04/24 23:29 10/08/24 08:52 0.5 INCH Nitroglycerin (Nitrostat) 0.4 mg AD PRN SL CHEST PAIN 10/05/24 22:30 11/04/24 22:29 Ondansetron HCl (zoFRAN 4MG INJ) 4 mg Q6H PRN IV NAUSEA/VOMITING 10/05/24 23:30 11/04/24 23:29 Pantoprazole Sodium (PROTonix 40MG TAB) 40 mg DAILY PO 10/06/24 09:00 11/05/24 08:59 10/08/24 08:52 40 MG Pharmacy Profile Note (Pharmacy Communication) 1 each ONCE MISC 10/07/24 17:30 10/08/24 07:12 DC 10/07/24 23:37 1 EACH Potassium Chloride 100 ml @ 100 mls/hr AD PRN IV POTASSIUM PROTOCOL 10/05/24 23:30 11/04/24 23:29 Potassium Chloride (K-Dur/Klor-Con 20meq) 20 meq AD PRN PO POTASSIUM PROTOCOL 10/05/24 23:30 11/04/24 23:29 Potassium Chloride (KCl 10% Elixir 20meq/15ml) 20 meq AD PRN PO POTASSIUM PROTOCOL 10/05/24 23:30 11/04/24 23:29 Sodium Chloride 500 ml @ 0 mls/hr Q0M IV 10/06/24 21:30 11/05/24 21:29 Sodium Chloride (NS Flush 10ml) 10 ml Q8H IVP 10/07/24 17:30 11/06/24 17:29 10/08/24 08:52 10 ML DIAGNOSTICS / RADIOLOGY: OPERATIVE REPORT Name: WATSON MAC Acct: [id number] MR: [id number] : 1945 Admit Date: 10/05/24 GUANACO ORELLANA MD [facility] [address] [place] [address] Operative Note: DATE OF SERVICE : 10/07/24 1700 PROCEDURES PERFORMED: 1. Left heart catheterization. 2. Selective coronary angiography. 3. Moderate sedation INDICATION FOR PROCEDURE: DESCRIPTION OF PROCEDURE: The patient was brought to the cardiac catheterization lab in fasting state, informed consent was obtained and the patient was prepped and draped in sterile fashion. Mild sedation was administered via versed and fentanyl. I was present during administration of sedation. The right wrist/radial artery region was then anesthetized via 2 mL of 2% lidocaine and the right radial artery was accessed via double wall puncture technique and a 6-Malagasy Radial arterial sheath was advanced over a guidewire using modified Seldinger technique.Next, a 5-Malagasy TIG catheter were advanced over the guidewire to the level of the ascending aorta. The catheter(s) was used to selectively engage the left main coronary artery and RCA. The right coronary artery and LM and its branches were then imaged in multiple planes and views. At the conclusion of the procedure, the patient had the Radial arterial sheath removed in the cardiac catheterization lab with hemostasis obtained via manual hand Band application devise and the patient was transferred to the Metals Analyst observation area. Blood loss was minimal. Moderate sedation: Moderate sedation was used during the procedure, moderate sedation was started at 1645 and completed at 1700 . Patient tolerated the procedure well.Continuous hemodynamic and physiological monitoring was present throughout the procedure. ASA and Mallampatti were assessed prior to the procedure as well. SELECTIVE CORONARY ANGIOGRAPHY: 1. Left main: The left main bifurcates into the left anterior descending and circumflex coronary artery. Distal Left main with 50% stenosis 2. Left anterior descending: The left anterior descending coronary artery gives rise to diagonal(s) and terminates as the apical recurrent branch. Prox LA D with 90% disease 3. Circumflex: The circumflex coronary artery is noted to provide obtuse marginal(s). Prox Cx with 95% disease 4. Right coronary artery: The right coronary artery is dominant and gives PDA and NIKITA. Prox RCA with 50% disease 5. Left ventricular end-diastolic pressure is elevated. There was no gradient noted upon pullback. Impression MVCAD PLAN: CVT surgery consult Aggressive risk factors modification Maximize medical therapy GUANACO ORELLANA MD Oct 08, 2024 06:24 Electronically Signed by: GUANACO ORELLANA MD10/08/24 0624 Electronically Co-Signed by: PATIENT: WATSON MAC MR#: [id number] : 1945 SEX: F AGE: 79 LOCATION: 2A ORDER 142 STATUS: ADM IN REPORT#: [id number] SERVICE 142 REASON: nstemi dr miranda to read ORDERING PHYSICIAN: GUANACO ORELLANA MD PROCEDURE: ECHO CMP - ECHO 2-D COMPLETE APPROVED REPORT EXAM: Two-dimensional and M-mode echocardiogram with Doppler and color Doppler. INDICATION ICD: Non ST-elevation MA I21.4 2D Dimensions RVDd 2.9 cm LVEF(%) 88.0 (>50%) LVED Vol(simp.) 82.0 mL IVSd 0.6 (0.7-1.1cm) FS(%) 58 % LVES Vol(simp.) 42.4 mL LVDd 4.0 (3.8-5.6cm) LA (2D) 3.4 (1.6-4.0cm) LVEF(%, simp.) 48 % PWd 0.7 (0.7-1.1cm) Ao Root(2D) 2.4 (2.0-3.7cm) LA ESV INDEX (4CH) 22.50 mL/m2 IVSs 0.9 cm LVOT diam 1.9 (1.8-2.4cm) LA ESV INDEX (2CH) 36.60 mL/m2 LVDs 1.7 (2.5-4.0cm) LA ESV INDEX (BP) 27.70 mL/m2 PWs 1.2 cm M-Mode Dimensions EPSS 0.4 cm LA (MM) 3.4 (1.6-4.0cm) Ao Root(MM) 2.4 (2.0-3.7cm) Aortic Valve AoV VTI 0.3 m Ao Mean GR 3.0 mmHg LVOT VTI 0.15 m WILLIE (VMAX) 1.7 cm2 WILLIE (VTI) 1.7 cm2 Mitral Valve MV E Vmax 77.6 cm/s DECEL Time 162 ms MV A Vmax 104.8 cm/s P 1/2 T 69 ms E/A ratio 0.7 MVA (PHT) 3.2 cm2 MR Max PG 49 mmHg TDI E/E' Medial 20.4 E/E' Lateral 18.9 Medial E' Peak V 3.80 cm/s Lateral E' Peak V 4.10 cm/s Left Ventricle The left ventricle structure and function is normal. Mid to distal anterior wall and apex is hypokinetic There is normal left ventricular wall thickness. LVEF is 35-40% Grade 1 diastolic dysfunction Right Ventricle The right ventricle is normal size. The right ventricular systolic function is normal. Atria The left atrium size is normal. The right atrium size is normal. Aortic Valve The aortic valve is normal in structure and function. No aortic regurgitation is present. There is no aortic valvular stenosis. Mitral Valve The mitral valve is normal in structure and function. There is trace mitral valve regurgitation noted. There is no mitral valve stenosis. Tricuspid Valve The tricuspid valve is normal in structure and function. There is no tricuspid valve regurgitation noted. Pulmonic Valve The pulmonary valve is normal in structure and function. There is no pulmonic valvular regurgitation. Great Vessels The aortic root is normal in size. The IVC is normal in size and collapses >50% with inspiration. Pericardium No pericardial effusion. Conclusion LVEF is 35-40% Grade 1 diastolic dysfunction There is normal left ventricular wall thickness. The left ventricle structure and function is normal. Mid to distal anterior wall and apex is hypokinetic No pericardial effusion. Normal pulmonary pressures Study quality was difficult, poor endocardial definition DICTATED BY: GUANACO ORELLANA MD DATE: 10/07/241399 PATIENT: WATSON MAC MR#: [id number] : 1945 SEX: F AGE: 79 LOCATION: 2AH ORDER [id number] STATUS: ADM IN REPORT#: [id number] SERVICE 4 REASON: preop CABG ORDERING PHYSICIAN: NAWAF GREGG MD PROCEDURE: CAROTID - US CAROTID DUPLEX US CAROTID DUPLEX HISTORY: Preop CABG COMPARISON: None TECHNIQUE: Duplex carotid arterial Doppler ultrasound study was performed. FINDINGS: The common, internal and external carotid arteries are visualized. The peak systolic velocities of right common carotid artery is 90 centimeters per second, right internal carotid artery is 122 centimeters per second, right external carotid artery is 185 centimeters per second, and right vertebral artery is 20 centimeters per second. Right internal carotid artery to right common carotid artery ratio is 1.4. Right vertebral artery is seen with antegrade flow. The peak systolic velocities of left common carotid artery is 100 centimeters per second, left internal carotid artery is 130 centimeters per second, left external carotid artery is 133 centimeters per second, and left vertebral artery is 42 centimeters per second. Left internal carotid artery to left common carotid artery ratio is 1.3. Left vertebral artery is seen with antegrade flow. There are bilateral echogenic plaques. IMPRESSION: 1. No hemodynamically significant lesion is seen of either extracranial carotid artery system. DICTATED BY: CARLOS AZEVEDO MD DATE: 10/08/24817 ELECTRONICALLY SIGNED BY: CARLOS AZEVEDO MD DATE: 10/08/24821 ASSESSMENT: Chest pain, POA Abnormal EKG, POA Elevated troponin, POA CKD stage IIIA, POA uncontrolled Diabetes mellitius type2, POA Hypertension Hypothyroidism] Possible Raynaud's phenomenon versus limited scleroderma PLAN: [ Admit patient to PCCU as inpatient status. Place patient on telemetry monitoring. Administer aspirin 162 mg by mouth times 1 dose Continue aspirin 81 mg by mouth once daily Nitropaste 0.5 inches anterior chest wall every 8 hours Trend troponin every 6 hours x 3 sets Supplemental oxygen to maintain O2 saturation greater than 92% Patient will be followed by cardiology service, Dr. Miranda Avoid nephrotoxic agents when possible Renally dose all medications when possible Monitor intake and output Weight patient daily Monitor patient's labs Check hemoglobin A1c in a.m. Glucometer checks a.c. and HS 1800 ADA diet Humulin R sliding scale Check TSH in a.m., Consider resuming home medications once they are reconciled For now, Hydralazine 10 mg IV every 4 hours for systolic blood pressure greater than 160 mmHg GI prophylaxis, Protonix DVT prophylaxis, heparin Follow up with the echocardiogram results Follow up with catheterization lab results Follow up with immunology workup ATTESTATION BY PHYSICIAN I have seen and examined the patient. I reviewed the documentation, medical decision making, and treatment plan as noted by the mid-level provider above. I agree with the findings and plan of care. Angel Tyson MD, KEERTI K MD Oct 08, 2024 12:07
[2024-10-08 13:28] LABS: INR 1.06 (0.85-1.15); PROTHROMBIN TIME 11.8 SEC (9.6-11.6)
[2024-10-08 14:12] LABS: PARTIAL THROMBOPLASTIN TIME 96.1 SEC (26.3-35.5)
--- NOTE | 2024-10-08 16:20 | NUR ---
Nursing note Heparin drip PTT results high x 2. Stopped heparin drip as per protocol. Christine went on to state that she had a black stool with bloody specks in it. Hospitalist team paged. No reply. Hospitalist Dr. Rodriguez called and updated on patient's status and previous statements. Orders to hold Heparin and notify insurance healthcare representative of finding/situation. Will notify Dr. Miranda.
--- NOTE | 2024-10-08 16:23 | NUR ---
NURSING NOTE Notified Dr. Miranda (quiller hand) of patient's statement that she had a dark black stool with bloody specks. Orders to stop Heparin drip. Dr. Miranda stated that he would come see patient.
--- NOTE | 2024-10-08 17:49 | CONS ---
PREOPERATIVE EVALUATION REFERRING PHYSICIAN: Dr. Miranda. CONSULTING PHYSICIAN: Pepito Licona MD REASON FOR CONSULTATION: Coronary artery disease. HISTORY INDICATIONS: This is a 79-year-old lady presents with chest pain. Cardiac catheterization demonstrates 3-vessel coronary artery disease with ejection fraction of 35%. The patient was referred for surgical revascularization. I have had the opportunity to review the medical record, examined the patient and reviewed the imaging studies including the cardiac catheterization and echocardiogram. I agree with Dr. Miranda that surgery is indicated and we have recommended. The patient understands the indications for surgery as well as the potential complications of the operation including, but not limited to postoperative bleeding, infection, stroke and/or . He understands this as well as associated morbidity and mortality of the procedure as it relates to his own comorbidities and is expressed in the manner of morbidity and mortality as depicted on the Society of Thoracic Surgeon's clinical current database and wishes to proceed. Plan for surgery. TID: [id number] RECEIPT: [id number]
--- NOTE | 2024-10-08 18:08 | PN ---
CARDIOLOGY Reason for consult: NSTEMI HPI/story at presentation: This is a pleasant 79-year-old female with past medical history as below presents for chest discomfort. Patient was having mostly back pain and bilateral shoulder pain that was present yesterday morning and then subsequently, was in the ER for further evaluation and had significant elevated troponins therefore, cardiology was consulted for further evaluation and management Subjective: 10/06/2024 no active cardiac complaints 10/07/2024 no chest pain 10/08/2024 no further symptoms Past medical history: See below Allergies, Meds See chart Review of systems Review of Systems Constitutional: Negative for chills and fever. HENT: Negative for ear discharge and ear pain. Eyes: Negative for photophobia and discharge. Respiratory: Negative for cough, sputum production and stridor. Cardiovascular: Negative for chest pain and palpitations. Gastrointestinal: Negative for diarrhea and vomiting. Genitourinary: Negative for frequency. Musculoskeletal: Negative for myalgias. Skin: Negative for rash. Neurological: Negative for focal weakness and seizures. Endo/Heme/Allergies: Negative for polydipsia. Psychiatric/Behavioral: Negative for hallucinations. Vitals see chart PHYSICAL EXAMINATION GENERAL: The patient is alert and oriented*3 HEENT: Nonicteric sclerae, non traumatic HEART: Regular rate and rhythm with no murmurs LUNGS: Clear to auscultation bilaterally ABDOMEN: No acute issues, non tender GENITAL, RECTAL: deferred SKIN: No rash NEUROLOGIC: NFND EXTREMITIES: No edema ASSESSMENT NSTEMI On anticoagulation with heparin, 09/2024, stopped With abnormal EKG Elevated troponins Troponin greater than 18,000, 10/06/2024 GI BLEED suspected, heparin off 10/08/2024 CARDIOMYOPATHY EF 35-40% 09/2024 CHRONIC KIDNEY DISEASE HYPERTENSION CORE MEASURES On aspirin OTHER MEDICAL PROBLEMS Hypothyroidism PLAN 10/06/2024 patient with NSTEMI, atypical chest pain at presentation, EKG changes. Plan for cardiac catheterization tomorrow to further evaluate coronaries Echo pending. risk-benefit discussed extensively and patient wants to proceed. 10/07/2024 Cardiac catheterization today for further evaluation of non-STEMI. Risk-benefit discussed. Primary team addressing possible scleroderma given issues with dysphagia. No active chest pain at this time echo with EF of 35- 40%, on metoprolol aspirin - add statin 10/08/2024 No active cardiac complaints at this time, no further issues with chest or back pain, awaiting final decision from CV surgery regarding surgery. Continue maximal medical therapy. 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 There is a question of GI bleeding with dark stools. Will get an occult blood and hold heparin for now. On atorvastatin beta-estefania and aspirin, continue. Hemoglobin stable. Carotid duplex was negative. Seen and examined 10/04/2024 at around 5 PM ATTESTATION I was involved substantially in the care of this patient Number and complexity of problems addressed: 1 acute illness with systemic features Amount and or complexity of data Review of prior external note(s) from each unique source: 2+ Ordering of each unique test : 0 Review of the result(s) of each unique test: 2+ Assessment requiring an independent historian(s): No Independent interpretation of test performed by another MD/QHCP/appropriate source (not separately reported) : No Discussion of management or test interpretation with external MD/QHCP/appropriate source (not separately reported) : No Risk status (cardiac, billing related): moderate Vitals/Labs Vital Signs Date Time Temp Pulse Resp B/P (MAP) Pulse Ox O2 Delivery O2 Flow Rate FiO2 10/08/24 16:26 99.0 85 18 128/62 96 Room Air 10/08/24 08:00 0 21 Laboratory Tests 10/08/24 07:04 Medications Current Medications Morphine Sulfate 2 mg ONCE ONCE IVP Last administered on 10/05/24at 22:22; Start 10/05/24 at 22:30; Stop 10/05/24 at 22:31; Status DC Ketorolac Tromethamine 15 mg ONCE ONCE IV Last administered on 10/05/24at 23:34; Start 10/05/24 at 22:30; Stop 10/05/24 at 22:31; Status DC Nitroglycerin 0.4 mg AD PRN SL; Start 10/05/24 at 22:30; Stop 11/04/24 at 22:29 Aspirin 162 mg ONCE ONCE PO Last administered on 10/05/24at 23:32; Start 10/05/24 at 23:30; Stop 10/05/24 at 23:31; Status DC Aspirin 81 mg DAILY PO Last administered on 10/08/24at 08:51; Start 10/06/24 at 09:00; Stop 11/05/24 at 08:59 Nitroglycerin 0.5 inch Q8H TD Last administered on 10/08/24at 16:07; Start 10/05/24 at 23:30; Stop 11/04/24 at 23:29 Ondansetron HCl 4 mg Q6H PRN IV; Start 10/05/24 at 23:30; Stop 11/04/24 at 23:29 Heparin Sodium (Porcine) 5,000 unit BID SQ; Start 10/06/24 at 09:00; Stop 10/06/24 at 06:29; Status DC Pantoprazole Sodium 40 mg DAILY PO Last administered on 10/08/24at 08:52; Start 10/06/24 at 09:00; Stop 11/05/24 at 08:59 Acetaminophen 650 mg Q6H PRN PO Last administered on 10/06/24at 16:01; Start 10/05/24 at 23:30; Stop 11/04/24 at 23:29 Insulin Human Regular INSULIN SLIDING SCAL... ACHS SQ; Start 10/06/24 at 07:30; Stop 11/05/24 at 07:29 Potassium Chloride 100 ml @ 100 mls/hr AD PRN IV; Start 10/05/24 at 23:30; Stop 11/04/24 at 23:29 Potassium Chloride 20 meq AD PRN PO; Start 10/05/24 at 23:30; Stop 11/04/24 at 23:29 Potassium Chloride 20 meq AD PRN PO; Start 10/05/24 at 23:30; Stop 11/04/24 at 23:29 Magnesium Sulfate 50 ml @ 0 mls/hr PROTOCOL PRN IV; Start 10/05/24 at 23:30; Stop 11/04/24 at 23:29 Heparin Sodium (Porcine) *calculation based on ACTUAL B... AD PRN IV Last administered on 10/06/24at 07:19; Start 10/06/24 at 07:30; Stop 11/05/24 at 07:29 Heparin Sodium/ Dextrose 250 ml @ 0 mls/hr Q6H IV Last administered on 10/08/24at 14:20; Start 10/06/24 at 07:30; Stop 11/05/24 at 07:29 Atorvastatin Calcium 40 mg ONCE ONCE PO Last administered on 10/06/24at 21:22; Start 10/06/24 at 21:30; Stop 10/06/24 at 21:31; Status DC Clopidogrel Bisulfate 75 mg ONCE ONCE PO Last administered on 10/06/24at 21:22; Start 10/06/24 at 21:30; Stop 10/06/24 at 21:31; Status DC Metoprolol Tartrate 12.5 mg BID PO Last administered on 10/08/24at 08:52; Start 10/07/24 at 09:00; Stop 11/06/24 at 08:59 Sodium Chloride 500 ml @ 0 mls/hr Q0M IV; Start 10/06/24 at 21:30; Stop 11/05/24 at 21:29 Lidocaine HCl 20 ml STK-MED ONCE .ROUTE; Start 10/07/24 at 16:23; Stop 10/07/24 at 16:23; Status DC Iohexol 75 ml STK-MED ONCE IV; Start 10/07/24 at 16:23; Stop 10/07/24 at 16:23; Status DC Heparin Sodium (Porcine) 10,000 unit STK-MED ONCE .ROUTE; Start 10/07/24 at 16:23; Stop 10/07/24 at 16:23; Status DC Heparin Sodium/ Sodium Chloride 1,000 ml @ As Directed STK-MED ONCE IV; Start 10/07/24 at 16:23; Stop 10/07/24 at 16:23; Status DC Nitroglycerin 50 mg STK-MED ONCE .ROUTE; Start 10/07/24 at 16:23; Stop 10/07/24 at 16:23; Status DC Fentanyl Citrate 100 mcg STK-MED ONCE .ROUTE; Start 10/07/24 at 16:24; Stop 10/07/24 at 16:24; Status DC Midazolam HCl 2 mg STK-MED ONCE .ROUTE; Start 10/07/24 at 16:24; Stop 10/07/24 at 16:24; Status DC Nicardipine HCl 25 mg STK-MED ONCE IV; Start 10/07/24 at 16:24; Stop 10/07/24 at 16:24; Status DC Sodium Chloride 10 ml Q8H IVP Last administered on 10/08/24at 08:52; Start 10/07/24 at 17:30; Stop 11/06/24 at 17:29 Pharmacy Profile Note 1 each ONCE MISC Last administered on 10/07/24at 23:37; Start 10/07/24 at 17:30; Stop 10/08/24 at 07:12; Status DC Atorvastatin Calcium 20 mg HS PO; Start 10/08/24 at 21:00; Stop 11/07/24 at 20:59 GUANACO ORELLANA MD Oct 08, 2024 18:08
[2024-10-08] MEDS: atorVAStatin 20 MG TABLET PO SCH (20:11)
[2024-10-09] VITALS (9 sets, daily range): BP systolic 110–143; BP diastolic 55–67; PULSE 62–74; RESP 16–18; TEMP 97.7–98.8; O2SAT 97–99
[2024-10-09 04:20] LABS: BASOPHILS # (AUTO) 0.07 K/uL (0.00-0.20); BASOPHILS % (AUTO) 0.7 % (0.0-5.0); EOSINOPHILS # (AUTO) 0.12 K/uL (0.00-0.70); EOSINOPHILS % (AUTO) 1.2 % (0.0-8.0); HEMATOCRIT 34.2 % (36-48); IMMATURE GRANULOCYTE ABSOLUTE 0.03 K/uL (0-1); LYMPHOCYTES # (AUTO) 2.9 K/uL (1.0-4.8); LYMPHOCYTES % (AUTO) 30.1 % (21.0-51.0); MEAN CORPUSCULAR HEMOGLOBIN 30.5 pg (27.0-33.0); MEAN CORPUSCULAR VOLUME 92.4 fL (79-99); MONOCYTES % (AUTO) 10.2 % (3.0-13.0); NEUTROPHILS # (AUTO) 5.5 K/uL (1.8-7.7); NEUTROPHILS % (AUTO) 57.5 % (40.0-77.0); PLATELET COUNT (AUTO) 247 K/uL (130-400); RED CELL DISTRIBUTION WIDTH 13.3 % (11.0-15.5); WHITE BLOOD COUNT (AUTO) 9.6 K/uL (4.8-10.8)
[2024-10-09 04:32] LABS: CREATININE 0.8 mg/dL (0.5-1.0); POTASSIUM 3.6 mmol/L (3.5-5.1)
[2024-10-09] MEDS: levoTHYROxine 100 MCG TABLET PO SCH (05:54)
[2024-10-09 10:11] LABS: ANTI-SCLERODERMA 70 <0.2 AI (0.0-0.9)
--- NOTE | 2024-10-09 11:58 | PN ---
[facility] PROGRESS NOTE Date of Service: Oct 09, 2024 Time of Service: 11:53 SUBJECTIVE: Ms. Mac is a 79-year-old female that was seen and examined today on 10/05/2024. Patient is a good historian and personal health. Patient states that she came to the emergency department with a chief complaint of bilateral chest wall pain closer to the axilla and pain also radiates to the back. Onset was 9:30 a.m.. Character is described as throbbing. Symptoms are aggravated with palpation and movement. Symptoms are not alleviated with a chiropractic adjustment in fact symptoms became worse after a chiropractic adjustment. There was no alleviating factors Duration of pain is on and off. Patient denies any associated shortness of breath, nausea, vomiting, headache, dizziness. Today in the emergency department CBC unremarkable, troponin 378 (high sensitivity), creatinine 1.1, glucose 208 mg/dL, GFR 51, no urinalysis has been collected or sent to lab. Emergency room initial impression and EKG is that there is new T-wave inversions signifying a change from previous EKGs one week ago at a prior emergency room visit. For this reason emergency room physician recommended patient be admitted with a diagnosis of chest pain. 10/06/24 patient was seen and examined in the ER. She reports that she was doing much better. She denies any chest pain. And she tells me that she came in because she had back pain radiating to bilateral shoulders. She does go to chiropractor to get this resolved but this time it was more persistent 10/07/2024 - patient is seen at bedside in the room ER 5. Patient denies any active chest pain, shortness of breath, nausea, vomiting. [place] [id number] and is coming down with treatment, patient is planned for oil laboratory analyst. Patient feels anxious about the upcoming oil laboratory analyst procedure and question regarding the procedures, all questions were answered. Patient informed about her extremities getting cold and color change to purplish red and about her joint problems and trouble of food getting stuck in the esophagus after swallowing , immunology workup is planned to rule out limited scleroderma . Patient is hemodynamically stable with temperature 98.6, pulse 77, respiratory rate 17, blood pressure 146/77, pulse oximetry 99% on room air. Patient's labs shows WBC 10.4, hemoglobin 13.5, chemistries show sodium 141, potassium 4.3, creatinine 0.8, BUN 14. Patient is currently on metoprolol, pantoprazole, aspirin, heparin, nitroglycerin. Patient will be followed rajiv kuldip, we will follow Cardiology recommendations. 10/08/2024 - patient is seen in room 201, patient denies any symptoms, patient was taken to the oil laboratory analyst yesterday in the results are as follows SELECTIVE CORONARY ANGIOGRAPHY: 1. Left main: The left main bifurcates into the left anterior descending and circumflex coronary artery. Distal Left main with 50% stenosis 2. Left anterior descending: The left anterior descending coronary artery gives rise to diagonal(s) and terminates as the apical recurrent branch. Prox LAD with 90% disease 3. Circumflex: The circumflex coronary artery is noted to provide obtuse marginal(s). Prox Cx with 95% disease 4. Right coronary artery: The right coronary artery is dominant and gives PDA and NIKITA. Prox RCA with 50% disease 5. Left ventricular end-diastolic pressure is elevated. There was no gradient noted upon pullback. Cardiothoracic surgeon is consulted and Dr. Licona has ordered an ultrasound carotid has a preoperative procedure. patient will be continued on medical management until the surgery . Patient is currently hemodynamically stable with temperature 98.2, pulse 81, blood pressure 122/80, respiratory rate 18, saturating at 94% on room air. Patient's labs shows WBC 10.7, hemoglobin 11.9 and chemistries show sodium 142, potassium 3.7, creatinine 0.7. Awaiting further instructions from cardio thoracic surgeon. 10/09/2024 - patient is seen at bedside in room 301. Patient is currently asymptomatic but complained of mild pain yesterday night which is relieved with nitro patch. Patient had black tarry stool episode yesterday and the heparin is put on hold currently she informed that this morning she had a normal colored stool. Patient has been seen by Dr. Licona and he informed about the surgery but has not scheduled it yet. Technician Inventory Specialist following the case closely and recommends continuing the medical management until the surgery patient is currently hemodynamically stable with temperature 97.9, pulse 73, respiratory rate 16, blood pressure 113/58 and saturating at 99% on room air. Patient's labs shows WBC 9.6, hemoglobin 11.3 And chemistries show sodium 138, potassium 3.6, creatinine 0.8, BUN 24. Patient will be followed closely. REVIEW OF SYSTEMS CONSTITUTIONAL: Denies fevers, chills, or night sweats. No unintentional weight loss reported. NEUROLOGICAL: Denies headache, amaurosis fugax, motor weakness, sensory deficit, vertigo/spinning sensation, gait abnormalities, or tremors. ENT: No hearing loss, otalgia, otorrhea, rhinitis, rhinorrhea, hoarseness, or sore throat. CARDIOVASCULAR: Denies any exertional angina, dyspnea on exertion, orthopnea, paroxysmal nocturnal dyspnea, palpitations, life-threatening arrhythmias, claudication. PULMONARY: Denies any shortness of breath, cough, phlegm/sputum, hemoptysis, pleuritic chest pain. SLEEP: Denies morning headaches, daytime somnolence or napping. Denies difficulty falling asleep, staying asleep, waking from sleep. Denies knowledge of snoring. GASTROINTESTINAL: Denies any type of dysphagia to either liquids or solids. Denies nausea, vomiting, pyrosis, early satiety, abdominal pain, diarrhea, constipation, or changes in stool consistency or caliber. Denies coffee-ground emesis, hematemesis, hematochezia, or melanotic stools. GENITOURINARY: Denies frequency, urgency, nocturia, hematuria or incontinence (Storage/Irritative symptoms.) Low urinary stream, straining to void, urinary intermittency or hesitancy, splitting of the voiding stream, terminal dribbling. ENDOCRINOLOGIC: Denies polyuria, polydipsia, polyphagia or heat/cold intolerances. HEMATOLOGIC: Denies thrombophilia/previous clots, or coagulopathy/bleeding disorders. ONCOLOGIC: Denies personal history of malignancy. DERMATOLOGIC: Denies rashes or pruritus. PSYCHIATRIC: Denies any suicidal or homicidal ideation. Denies hallucinations. PHYSICAL EXAM GENERAL APPEARANCE: The patient is awake, alert, and oriented, in no acute cardiopulmonary distress. NEUROLOGICAL: Cranial nerves II-XII grossly intact. Motor is 5/5 in bilateral upper and lower extremities proximal to distal. No sensory deficits. HEENT: Face is symmetric. Pupils are equal and reactive. Extraocular movements are intact. NECK: Supple. No JVD. No thyromegaly. No submental, submandibular, pre- /postauricular, occipital or supraclavicular lymphadenopathy. CHEST: Normal chest expansion. No Telemetry. LUNGS: Absence of any rales, rhonchi or any wheezing. CARDIOVASCULAR: Regular. S1 and S2 normal. No appreciable rubs, murmurs or gallops. ABDOMEN: Soft, nontender, and nondistended. There is no rebound, voluntary guarding, or rigidity. : Deferred. No Rosa. EXTREMITIES: Non-edematous and not cyanotic. No clubbing. Good capillary refill. SKIN: No skin breakdown. Vital Signs (last 8hr) Date Time Temp Pulse Resp B/P (MAP) Pulse Ox O2 Delivery O2 Flow Rate FiO2 10/09/24 11:00 97.9 73 16 113/58 99 Room Air 10/09/24 07:00 97.7 70 16 136/67 99 Room Air 10/09/24 04:18 98.4 62 18 124/61 98 Room Air LABS: Laboratory: Test 10/09/24 11:31 10/09/24 03:54 10/08/24 12:59 10/08/24 09:21 Range/Units Whole Blood Glucose 129 H 70-110 MG/DL Bedside Glucose Comment Notified Nurse White Blood Count 9.6 4.8-10.8 K/uL Red Blood Count 3.70 L 4.00-5.50 MIL/uL Hemoglobin 11.3 L 12.0-16.0 g/dL Hematocrit 34.2 L 36-48 % Mean Corpuscular Volume 92.4 79-99 fL Mean Corpuscular Hemoglobin 30.5 27.0-33.0 pg Mean Corpuscular Hemoglobin Concent 33.0 32.0-36.0 g/dL Red Cell Distribution Width 13.3 11.0-15.5 % Platelet Count 247 130-400 K/uL Mean Platelet Volume 9.7 7.5-10.5 fL Immature Granulocyte % (Auto) 0.3 0-1 % Neutrophils (%) (Auto) 57.5 40.0-77.0 % Lymphocytes (%) (Auto) 30.1 21.0-51.0 % Monocytes (%) (Auto) 10.2 3.0-13.0 % Eosinophils (%) (Auto) 1.2 0.0-8.0 % Basophils (%) (Auto) 0.7 0.0-5.0 % Neutrophils # (Auto) 5.5 1.8-7.7 K/uL Lymphocytes # (Auto) 2.9 1.0-4.8 K/uL Monocytes # (Auto) 1.0 0.1-1.0 K/uL Eosinophils # (Auto) 0.12 0.00-0.70 K/uL Basophils # (Auto) 0.07 0.00-0.20 K/uL Absolute Immature Granulocyte (auto 0.03 0-1 K/uL Nucleated Red Blood Cells 0.0 0.0-0.19 % Sodium Level 138 136-145 mmol/L Potassium Level 3.6 3.5-5.1 mmol/L Chloride Level 105 101-111 mmol/L Carbon Dioxide Level 25 21-32 mmol/L Blood Urea Nitrogen 24 H 7-18 mg/dL Creatinine 0.8 0.5-1.0 mg/dL Glomerular Filtration Rate Calc 75 >90 mL/min Random Glucose 107 H 70-105 mg/dL Total Calcium 8.5 8.5-10.1 mg/dL Prothrombin Time 11.8 H 9.6-11.6 SEC Prothromb Time International Ratio 1.06 0.85-1.15 Activated Partial Thromboplast Time 96.1 #*H 26.3-35.5 SEC Blood Gas Specimen Type Arterial Arterial Blood pH 7.413 7.350-7.450 Arterial Blood Partial Pressure CO2 30 L 32-45 mmHg Arterial Blood Partial Pressure O2 91.8 83.0-108.0 mmHg Arterial Blood HCO3 18.8 L 21.0-28.0 mmol/L Arterial Blood Oxygen Saturation 97.2 94.0-98.0 % Arterial Blood Base Excess -4.4 L -2.0-3.0 mmol/L Blood Gas Temperature 37.0 35.5-37.0 CELSIUS Blood Gas Vent Mode ROOM AIR ROOM AIR FiO2 21.0 % Blood Gas Specimen Comment RR Test 10/07/24 16:59 10/07/24 15:23 Range/Units Activated Clotting Time 260 H 100-180 SEC Anti-Nuclear Antibody Screen Negative Negative Scl-70 (Scleroderma) Antibody <0.2 0.0-0.9 AI Anti-Centromere IgG Antibody <0.2 0.0-0.9 AI Current Medications Medications (Trade) Dose Ordered Sig/Rashad Route PRN Reason Start Time Stop Time Status Last Admin Dose Admin Acetaminophen (TYLenol 325MG TAB) 650 mg Q6H PRN PO TEMPERATURE GREATER THAN 101.5 10/05/24 23:30 11/04/24 23:29 10/06/24 16:01 650 MG Aspirin (Aspirin 81mg Chew Tab) 81 mg DAILY PO 10/06/24 09:00 11/05/24 08:59 10/08/24 08:51 81 MG Atorvastatin Calcium (LIPItor 20MG) 20 mg HS PO 10/08/24 21:00 11/07/24 20:59 10/08/24 20:11 20 MG Heparin Sodium (Porcine) (HEParin 5,000 UNIT VIAL) *calculation based on ACTUAL B... AD PRN IV HEPARIN PROTOCOL 10/06/24 07:30 11/05/24 07:29 10/06/24 07:19 3,877.5 UNIT Heparin Sodium (Porcine) (HEParin 5,000 UNIT VIAL) 5,000 unit BID SQ 10/06/24 09:00 10/06/24 06:29 DC Heparin Sodium/ Dextrose 250 ml @ 0 mls/hr Q6H IV 10/06/24 07:30 11/05/24 07:29 10/08/24 14:20 0 MLS/HR Insulin Human Regular (humuLIN R 100 UNIT/ML 3ML) INSULIN SLIDING SCAL... ACHS SQ 10/06/24 07:30 11/05/24 07:29 Levothyroxine Sodium (SYNTHroid 100MCG TAB) 100 mcg SYN PO 10/09/24 06:30 11/08/24 06:29 10/09/24 05:54 100 MCG Magnesium Sulfate 50 ml @ 0 mls/hr PROTOCOL PRN IV h 10/05/24 23:30 11/04/24 23:29 Metoprolol Tartrate (loprESSOR) 12.5 mg BID PO 10/07/24 09:00 11/06/24 08:59 10/08/24 20:11 12.5 MG Nitroglycerin (Nitroglycerin 1gm Oint) 0.5 inch Q8H TD 10/05/24 23:30 11/04/24 23:29 10/08/24 23:47 0.5 INCH Nitroglycerin (Nitrostat) 0.4 mg AD PRN SL CHEST PAIN 10/05/24 22:30 11/04/24 22:29 Ondansetron HCl (zoFRAN 4MG INJ) 4 mg Q6H PRN IV NAUSEA/VOMITING 10/05/24 23:30 11/04/24 23:29 Pantoprazole Sodium (PROTonix 40MG TAB) 40 mg DAILY PO 10/06/24 09:00 11/05/24 08:59 10/08/24 08:52 40 MG Pharmacy Profile Note (Pharmacy Communication) 1 each ONCE MISC 10/07/24 17:30 10/08/24 07:12 DC 10/07/24 23:37 1 EACH Potassium Chloride 100 ml @ 100 mls/hr AD PRN IV POTASSIUM PROTOCOL 10/05/24 23:30 11/04/24 23:29 Potassium Chloride (K-Dur/Klor-Con 20meq) 20 meq AD PRN PO POTASSIUM PROTOCOL 10/05/24 23:30 11/04/24 23:29 Potassium Chloride (KCl 10% Elixir 20meq/15ml) 20 meq AD PRN PO POTASSIUM PROTOCOL 10/05/24 23:30 11/04/24 23:29 Sodium Chloride 500 ml @ 0 mls/hr Q0M IV 10/06/24 21:30 11/05/24 21:29 Sodium Chloride (NS Flush 10ml) 10 ml Q8H IVP 10/07/24 17:30 11/06/24 17:29 10/09/24 01:04 10 ML DIAGNOSTICS / RADIOLOGY: [ ] ASSESSMENT: Chest pain, POA Abnormal EKG, POA Elevated troponin, POA CKD stage IIIA, POA uncontrolled Diabetes mellitius type2, POA Hypertension Hypothyroidism] Possible Raynaud's phenomenon versus limited scleroderma PLAN: [ Admit patient to PCCU as inpatient status. Place patient on telemetry monitoring. Administer aspirin 162 mg by mouth times 1 dose Continue aspirin 81 mg by mouth once daily Nitropaste 0.5 inches anterior chest wall every 8 hours Trend troponin every 6 hours x 3 sets Supplemental oxygen to maintain O2 saturation greater than 92% Patient will be followed by cardiology service, Dr. Miranda Avoid nephrotoxic agents when possible Renally dose all medications when possible Monitor intake and output Weight patient daily Monitor patient's labs Check hemoglobin A1c in a.m. Glucometer checks a.c. and HS 1800 ADA diet Humulin R sliding scale Check TSH in a.m., Consider resuming home medications once they are reconciled For now, Hydralazine 10 mg IV every 4 hours for systolic blood pressure greater than 160 mmHg GI prophylaxis, Protonix DVT prophylaxis, heparin Follow up with the echocardiogram results Follow up with catheterization lab results Follow up with immunology workup ATTESTATION BY PHYSICIAN I have seen and examined the patient. I reviewed the documentation, medical decision making, and treatment plan as noted by the mid-level provider above. I agree with the findings and plan of care. Angel Tyson MD, KEERTI K MD Oct 09, 2024 11:58
--- NOTE | 2024-10-09 18:11 | PN ---
CARDIOLOGY Reason for consult: NSTEMI HPI/story at presentation: This is a pleasant 79-year-old female with past medical history as below presents for chest discomfort. Patient was having mostly back pain and bilateral shoulder pain that was present yesterday morning and then subsequently, was in the ER for further evaluation and had significant elevated troponins therefore, cardiology was consulted for further evaluation and management Subjective: 10/06/2024 no active cardiac complaints 10/07/2024 no chest pain 10/08/2024 no further symptoms 10/09/2024 no complaints Past medical history: See below Allergies, Meds See chart Review of systems Review of Systems Constitutional: Negative for chills and fever. HENT: Negative for ear discharge and ear pain. Eyes: Negative for photophobia and discharge. Respiratory: Negative for cough, sputum production and stridor. Cardiovascular: Negative for chest pain and palpitations. Gastrointestinal: Negative for diarrhea and vomiting. Genitourinary: Negative for frequency. Musculoskeletal: Negative for myalgias. Skin: Negative for rash. Neurological: Negative for focal weakness and seizures. Endo/Heme/Allergies: Negative for polydipsia. Psychiatric/Behavioral: Negative for hallucinations. Vitals see chart PHYSICAL EXAMINATION GENERAL: The patient is alert and oriented*3 HEENT: Nonicteric sclerae, non traumatic HEART: Regular rate and rhythm with no murmurs LUNGS: Clear to auscultation bilaterally ABDOMEN: No acute issues, non tender GENITAL, RECTAL: deferred SKIN: No rash NEUROLOGIC: NFND EXTREMITIES: No edema ASSESSMENT NSTEMI On anticoagulation with heparin, 09/2024, stopped With abnormal EKG Elevated troponins Troponin greater than 18,000, 10/06/2024 GI BLEED suspected, heparin off 10/08/2024 CARDIOMYOPATHY EF 35-40% 09/2024 CHRONIC KIDNEY DISEASE HYPERTENSION CORE MEASURES On aspirin OTHER MEDICAL PROBLEMS Hypothyroidism PLAN 10/06/2024 patient with NSTEMI, atypical chest pain at presentation, EKG changes. Plan for cardiac catheterization tomorrow to further evaluate coronaries Echo pending. risk-benefit discussed extensively and patient wants to proceed. 10/07/2024 Cardiac catheterization today for further evaluation of non-STEMI. Risk-benefit discussed. Primary team addressing possible scleroderma given issues with dysphagia. No active chest pain at this time echo with EF of 35- 40%, on metoprolol aspirin - add statin 10/08/2024 No active cardiac complaints at this time, no further issues with chest or back pain, awaiting final decision from CV surgery regarding surgery. Continue maximal medical therapy. 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 There is a question of GI bleeding with dark stools. Will get an occult blood and hold heparin for now. On atorvastatin beta-estefania and aspirin, continue. Hemoglobin stable. Carotid duplex was negative. Seen and examined 10/04/2024 at around 5 PM 10/09/2024 Was previously evaluated CV surgery, timing of surgery to be determined. On statin beta-estefania aspirin. Labs okay, occult blood has been ordered and is still pending. No further issues with dark stools per report. Currently off anticoagulation. Seen and examined 10/09/2024 at around 1730 ATTESTATION I was involved substantially in the care of this patient Number and complexity of problems addressed: 1 acute illness with systemic features Amount and or complexity of data Review of prior external note(s) from each unique source: 2+ Ordering of each unique test : 0 Review of the result(s) of each unique test: 2+ Assessment requiring an independent historian(s): No Independent interpretation of test performed by another MD/QHCP/appropriate source (not separately reported) : No Discussion of management or test interpretation with external MD/QHCP/appropriate source (not separately reported) : No Risk status (cardiac, billing related): moderate Vitals/Labs Vital Signs Date Time Temp Pulse Resp B/P (MAP) Pulse Ox O2 Delivery O2 Flow Rate FiO2 10/09/24 16:00 98.8 67 16 116/58 95 Room Air 10/09/24 08:00 0 21 Laboratory Tests 10/09/24 03:54 Medications Current Medications Morphine Sulfate 2 mg ONCE ONCE IVP Last administered on 10/05/24at 22:22; Start 10/05/24 at 22:30; Stop 10/05/24 at 22:31; Status DC Ketorolac Tromethamine 15 mg ONCE ONCE IV Last administered on 10/05/24at 23:34; Start 10/05/24 at 22:30; Stop 10/05/24 at 22:31; Status DC Nitroglycerin 0.4 mg AD PRN SL; Start 10/05/24 at 22:30; Stop 11/04/24 at 22:29 Aspirin 162 mg ONCE ONCE PO Last administered on 10/05/24at 23:32; Start 10/05/24 at 23:30; Stop 10/05/24 at 23:31; Status DC Aspirin 81 mg DAILY PO Last administered on 10/09/24at 11:57; Start 10/06/24 at 09:00; Stop 11/05/24 at 08:59 Nitroglycerin 0.5 inch Q8H TD Last administered on 10/09/24at 17:47; Start 10/05/24 at 23:30; Stop 11/04/24 at 23:29 Ondansetron HCl 4 mg Q6H PRN IV; Start 10/05/24 at 23:30; Stop 11/04/24 at 23:29 Heparin Sodium (Porcine) 5,000 unit BID SQ; Start 10/06/24 at 09:00; Stop 10/06/24 at 06:29; Status DC Pantoprazole Sodium 40 mg DAILY PO Last administered on 10/09/24at 11:56; Start 10/06/24 at 09:00; Stop 11/05/24 at 08:59 Acetaminophen 650 mg Q6H PRN PO Last administered on 10/06/24at 16:01; Start 10/05/24 at 23:30; Stop 11/04/24 at 23:29 Insulin Human Regular INSULIN SLIDING SCAL... ACHS SQ; Start 10/06/24 at 07:30; Stop 11/05/24 at 07:29 Potassium Chloride 100 ml @ 100 mls/hr AD PRN IV; Start 10/05/24 at 23:30; Stop 11/04/24 at 23:29 Potassium Chloride 20 meq AD PRN PO; Start 10/05/24 at 23:30; Stop 11/04/24 at 23:29 Potassium Chloride 20 meq AD PRN PO; Start 10/05/24 at 23:30; Stop 11/04/24 at 23:29 Magnesium Sulfate 50 ml @ 0 mls/hr PROTOCOL PRN IV; Start 10/05/24 at 23:30; Stop 11/04/24 at 23:29 Heparin Sodium (Porcine) *calculation based on ACTUAL B... AD PRN IV Last administered on 10/06/24at 07:19; Start 10/06/24 at 07:30; Stop 11/05/24 at 07:29 Heparin Sodium/ Dextrose 250 ml @ 0 mls/hr Q6H IV Last administered on 10/08/24at 14:20; Start 10/06/24 at 07:30; Stop 11/05/24 at 07:29 Atorvastatin Calcium 40 mg ONCE ONCE PO Last administered on 10/06/24at 21:22; Start 10/06/24 at 21:30; Stop 10/06/24 at 21:31; Status DC Clopidogrel Bisulfate 75 mg ONCE ONCE PO Last administered on 10/06/24at 21:22; Start 10/06/24 at 21:30; Stop 10/06/24 at 21:31; Status DC Metoprolol Tartrate 12.5 mg BID PO Last administered on 10/09/24at 11:57; Start 10/07/24 at 09:00; Stop 11/06/24 at 08:59 Sodium Chloride 500 ml @ 0 mls/hr Q0M IV; Start 10/06/24 at 21:30; Stop 11/05/24 at 21:29 Lidocaine HCl 20 ml STK-MED ONCE .ROUTE; Start 10/07/24 at 16:23; Stop 10/07/24 at 16:23; Status DC Iohexol 75 ml STK-MED ONCE IV; Start 10/07/24 at 16:23; Stop 10/07/24 at 16:23; Status DC Heparin Sodium (Porcine) 10,000 unit STK-MED ONCE .ROUTE; Start 10/07/24 at 16:23; Stop 10/07/24 at 16:23; Status DC Heparin Sodium/ Sodium Chloride 1,000 ml @ As Directed STK-MED ONCE IV; Start 10/07/24 at 16:23; Stop 10/07/24 at 16:23; Status DC Nitroglycerin 50 mg STK-MED ONCE .ROUTE; Start 10/07/24 at 16:23; Stop 10/07/24 at 16:23; Status DC Fentanyl Citrate 100 mcg STK-MED ONCE .ROUTE; Start 10/07/24 at 16:24; Stop 10/07/24 at 16:24; Status DC Midazolam HCl 2 mg STK-MED ONCE .ROUTE; Start 10/07/24 at 16:24; Stop 10/07/24 at 16:24; Status DC Nicardipine HCl 25 mg STK-MED ONCE IV; Start 10/07/24 at 16:24; Stop 10/07/24 at 16:24; Status DC Sodium Chloride 10 ml Q8H IVP Last administered on 10/09/24at 17:49; Start 10/07/24 at 17:30; Stop 11/06/24 at 17:29 Pharmacy Profile Note 1 each ONCE MISC Last administered on 10/07/24at 23:37; Start 10/07/24 at 17:30; Stop 10/08/24 at 07:12; Status DC Atorvastatin Calcium 20 mg HS PO Last administered on 10/08/24at 20:11; Start 10/08/24 at 21:00; Stop 11/07/24 at 20:59 Levothyroxine Sodium 100 mcg SYN PO Last administered on 10/09/24at 05:54; Start 10/09/24 at 06:30; Stop 11/08/24 at 06:29 GUANACO ORELLANA MD Oct 09, 2024 18:11
[2024-10-09] MEDS: PoTASSium chl 10% ELIXIR 20MEQ 20 MEQ/15 ML UDCUP PO PRN (21:00)
[2024-10-10] VITALS (8 sets, daily range): BP systolic 117–144; BP diastolic 58–77; PULSE 59–75; RESP 16–20; TEMP 97.7–98.3; O2SAT 98–99
[2024-10-10 03:47] LABS: BASOPHILS # (AUTO) 0.05 K/uL (0.00-0.20); BASOPHILS % (AUTO) 0.5 % (0.0-5.0); EOSINOPHILS # (AUTO) 0.11 K/uL (0.00-0.70); EOSINOPHILS % (AUTO) 1.1 % (0.0-8.0); HEMATOCRIT 32.6 % (36-48); IMMATURE GRANULOCYTE ABSOLUTE 0.04 K/uL (0-1); LYMPHOCYTES % (AUTO) 31.3 % (21.0-51.0); MEAN CORPUSCULAR HEMOGLOBIN 30.6 pg (27.0-33.0); MEAN CORPUSCULAR HGB CONC 32.8 g/dL (32.0-36.0); MEAN CORPUSCULAR VOLUME 93.1 fL (79-99); MONOCYTES # (AUTO) 0.7 K/uL (0.1-1.0); MONOCYTES % (AUTO) 7.7 % (3.0-13.0); NEUTROPHILS # (AUTO) 5.7 K/uL (1.8-7.7); PLATELET COUNT (AUTO) 284 K/uL (130-400); RED CELL DISTRIBUTION WIDTH 13.5 % (11.0-15.5); WHITE BLOOD COUNT (AUTO) 9.6 K/uL (4.8-10.8)
[2024-10-10 04:11] LABS: CREATININE 0.8 mg/dL (0.5-1.0); POTASSIUM 4.1 mmol/L (3.5-5.1)
--- NOTE | 2024-10-10 08:02 | EKG ---
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
--- NOTE | 2024-10-10 08:06 | NUR ---
THIS AM PAGED DR. ZEE DUE TO PATIENT WITH COMPLAINTS OF PAIN TO BACK AND CHEST AREA. PT VERBALIZED THAT IT IS A LEVEL OF 2 TO 3. PT ON NITROGLYCERIN OINTMENT. STATES PAIN COMES AND GOES. VITAL SIGNS STABLE. SPOKE TO MD, ORDERED TROPONIN AND EKG. ORDERS CARRIED OUT.
--- NOTE | 2024-10-10 08:20 | NUR ---
DR ZEE ROUNDED. REPORTED EKG RESULTS. NOTIFIED MD THAT STILL PENDING TROPONIN LEVEL DRAWN. STATED IF TROPONIN LEVEL IS TRENDING UP TO START ON HEPARIN DRIP IV BUT NO INITIAL BOLUS. MD WANTS TO BE CALLED ON TROPONIN LEVEL. NOTIFIED INCOMING NURSE OF ORDERS. DR. ZEE SAW PATIENT THIS AM. PER MD, IF START AGAIN WITH TARRY STOOLS, STOP HEPARIN DRIP.
[2024-10-10] MEDS ORDERED: HEParin 25,000 UNITS/250ML D5W 250 ML IV SCH (09:00)
--- NOTE | 2024-10-10 11:19 | CONS ---
PREOPERATIVE CONSULTATION REFERRING PHYSICIAN: Dr. Miranda. CONSULTING PHYSICIAN: Pepito Licona MD REASON FOR CONSULTATION: Coronary artery disease, gastroesophageal reflux disease, who was admitted to the hospital with a non-Q myocardial infarction. Cardiac catheterization ejection fraction and . I had the opportunity to review the patient, I had discussed with her the indications for surgery as well as the potential complications of the operation including but not limited to postoperative bleeding, infection, stroke and/or . She understands these as well as associated morbidity and mortality of procedures related to her own comorbidities and is depicted in the manner of morbidity and mortality at the thoracic surgeons' current clinical database and wishes to proceed, plan for surgery this weekend. TID: [id number] RECEIPT: [id number]
[2024-10-10] MEDS ORDERED: ceFAZolin SODIUM 2 GM VIAL IVP PRN (12:00)
[2024-10-10] MEDS ORDERED: CYCLOBENZAPRINE HCL 10 MG TABLET PO PRN (14:30)
--- NOTE | 2024-10-10 14:59 | PN ---
[facility] PROGRESS NOTE Date of Service: Oct 10, 2024 Time of Service: 14:49 SUBJECTIVE: Ms. Mac is a 79-year-old female that was seen and examined today on 10/05/2024. Patient is a good historian and personal health. Patient states that she came to the emergency department with a chief complaint of bilateral chest wall pain closer to the axilla and pain also radiates to the back. Onset was 9:30 a.m.. Character is described as throbbing. Symptoms are aggravated with palpation and movement. Symptoms are not alleviated with a chiropractic adjustment in fact symptoms became worse after a chiropractic adjustment. There was no alleviating factors Duration of pain is on and off. Patient denies any associated shortness of breath, nausea, vomiting, headache, dizziness. Today in the emergency department CBC unremarkable, troponin 378 (high sensitivity), creatinine 1.1, glucose 208 mg/dL, GFR 51, no urinalysis has been collected or sent to lab. Emergency room initial impression and EKG is that there is new T-wave inversions signifying a change from previous EKGs one week ago at a prior emergency room visit. For this reason emergency room physician recommended patient be admitted with a diagnosis of chest pain. 10/06/24 patient was seen and examined in the ER. She reports that she was doing much better. She denies any chest pain. And she tells me that she came in because she had back pain radiating to bilateral shoulders. She does go to chiropractor to get this resolved but this time it was more persistent 10/07/2024 - patient is seen at bedside in the room ER 5. Patient denies any active chest pain, shortness of breath, nausea, vomiting. [place] [address] and is coming down with treatment, patient is planned for medical laboratory technician. Patient feels anxious about the upcoming medical laboratory technician procedure and question regarding the procedures, all questions were answered. Patient informed about her extremities getting cold and color change to purplish red and about her joint problems and trouble of food getting stuck in the esophagus after swallowing , immunology workup is planned to rule out limited scleroderma . Patient is hemodynamically stable with temperature 98.6, pulse 77, respiratory rate 17, blood pressure 146/77, pulse oximetry 99% on room air. Patient's labs shows WBC 10.4, hemoglobin 13.5, chemistries show sodium 141, potassium 4.3, creatinine 0.8, BUN 14. Patient is currently on metoprolol, pantoprazole, aspirin, heparin, nitroglycerin. Patient will be followed rajiv kuldip, we will follow Cardiology recommendations. 10/08/2024 - patient is seen in room 201, patient denies any symptoms, patient was taken to the medical laboratory technician yesterday in the results are as follows SELECTIVE CORONARY ANGIOGRAPHY: 1. Left main: The left main bifurcates into the left anterior descending and circumflex coronary artery. Distal Left main with 50% stenosis 2. Left anterior descending: The left anterior descending coronary artery gives rise to diagonal(s) and terminates as the apical recurrent branch. Prox LAD with 90% disease 3. Circumflex: The circumflex coronary artery is noted to provide obtuse marginal(s). Prox Cx with 95% disease 4. Right coronary artery: The right coronary artery is dominant and gives PDA and NIKITA. Prox RCA with 50% disease 5. Left ventricular end-diastolic pressure is elevated. There was no gradient noted upon pullback. Cardiothoracic surgeon is consulted and Dr. Licona has ordered an ultrasound carotid has a preoperative procedure. patient will be continued on medical management until the surgery . Patient is currently hemodynamically stable with temperature 98.2, pulse 81, blood pressure 122/80, respiratory rate 18, saturating at 94% on room air. Patient's labs shows WBC 10.7, hemoglobin 11.9 and chemistries show sodium 142, potassium 3.7, creatinine 0.7. Awaiting further instructions from cardio thoracic surgeon. 10/09/2024 - patient is seen at bedside in room 201. Patient is currently asymptomatic but complained of mild pain yesterday night which is relieved with nitro patch. Patient had black tarry stool episode yesterday and the heparin is put on hold currently she informed that this morning she had a normal colored stool. Patient has been seen by Dr. Licona and he informed about the surgery but has not scheduled it yet. Blend Technician following the case closely and recommends continuing the medical management until the surgery patient is currently hemodynamically stable with temperature 97.9, pulse 73, respiratory rate 16, blood pressure 113/58 and saturating at 99% on room air. Patient's labs shows WBC 9.6, hemoglobin 11.3 And chemistries show sodium 138, potassium 3.6, creatinine 0.8, BUN 24. Patient will be followed closely. 10/10/2024 - patient is seen at bedside in room 201. Patient is complaining of mild pain in the back which is reproducible on palpation and also mentioned about mild chest pain which presents on bending forward, pain is relieved by sitting straight. Patient requested medication for the back pain and we ordered Flexeril and Ultram p.r.n. heparin is currently on hold troponin is trending down. Heparin to be continued if troponin trending up and will be held with the patient has black tarry stools again. Cardiac thoracic surgery might plan to surgery on the weekend. Patient's vitals temperature 98.1, pulse 60, respiratory rate 20, blood pressure 125/59, saturating at 99% on room air. Patient's labs shows WBC 9.6, hemoglobin 10.7 and chemistries show sodium 139, potassium 4.1, creatinine 0.8, BUN 24 and troponin has trended down from 2346 to 1280. We will be following Cardiology recommendations. We will be monitoring the case closely. REVIEW OF SYSTEMS CONSTITUTIONAL: Denies fevers, chills, or night sweats. No unintentional weight loss reported. NEUROLOGICAL: Denies headache, amaurosis fugax, motor weakness, sensory deficit, vertigo/spinning sensation, gait abnormalities, or tremors. ENT: No hearing loss, otalgia, otorrhea, rhinitis, rhinorrhea, hoarseness, or sore throat. CARDIOVASCULAR: Denies any exertional angina, dyspnea on exertion, orthopnea, paroxysmal nocturnal dyspnea, palpitations, life-threatening arrhythmias, claudication. PULMONARY: Denies any shortness of breath, cough, phlegm/sputum, hemoptysis, pleuritic chest pain. SLEEP: Denies morning headaches, daytime somnolence or napping. Denies difficulty falling asleep, staying asleep, waking from sleep. Denies knowledge of snoring. GASTROINTESTINAL: Denies any type of dysphagia to either liquids or solids. Denies nausea, vomiting, pyrosis, early satiety, abdominal pain, diarrhea, constipation, or changes in stool consistency or caliber. Denies coffee-ground emesis, hematemesis, hematochezia, or melanotic stools. GENITOURINARY: Denies frequency, urgency, nocturia, hematuria or incontinence (Storage/Irritative symptoms.) Low urinary stream, straining to void, urinary intermittency or hesitancy, splitting of the voiding stream, terminal dribbling. ENDOCRINOLOGIC: Denies polyuria, polydipsia, polyphagia or heat/cold intolerances. HEMATOLOGIC: Denies thrombophilia/previous clots, or coagulopathy/bleeding disorders. ONCOLOGIC: Denies personal history of malignancy. DERMATOLOGIC: Denies rashes or pruritus. PSYCHIATRIC: Denies any suicidal or homicidal ideation. Denies hallucinations. PHYSICAL EXAM GENERAL APPEARANCE: The patient is awake, alert, and oriented, in no acute cardiopulmonary distress. NEUROLOGICAL: Cranial nerves II-XII grossly intact. Motor is 5/5 in bilateral upper and lower extremities proximal to distal. No sensory deficits. HEENT: Face is symmetric. Pupils are equal and reactive. Extraocular movements are intact. NECK: Supple. No JVD. No thyromegaly. No submental, submandibular, pre- /postauricular, occipital or supraclavicular lymphadenopathy. CHEST: Normal chest expansion. No Telemetry. LUNGS: Absence of any rales, rhonchi or any wheezing. CARDIOVASCULAR: Regular. S1 and S2 normal. No appreciable rubs, murmurs or gallops. ABDOMEN: Soft, nontender, and nondistended. There is no rebound, voluntary guarding, or rigidity. : Deferred. No Rosa. EXTREMITIES: Non-edematous and not cyanotic. No clubbing. Good capillary refill. SKIN: No skin breakdown. Vital Signs (last 8hr) Date Time Temp Pulse Resp B/P (MAP) Pulse Ox O2 Delivery O2 Flow Rate FiO2 10/10/24 11:00 98.1 60 20 125/59 99 Room Air 10/10/24 08:00 98 Room Air* 0 21 10/10/24 07:00 97.7 64 16 142/63 100 Room Air LABS: Laboratory: Test 10/10/24 13:30 10/10/24 12:10 10/10/24 10:56 10/10/24 08:12 Range/Units Troponin I High Sensitivity 1280 *H 4-50 ng/L Stool Occult Blood NEGATIVE NEGATIVE Whole Blood Glucose 164 #H 70-110 MG/DL Bedside Glucose Comment Notified Nurse Activated Partial Thromboplast Time 26.9 26.3-35.5 SEC Test 10/10/24 02:47 Range/Units White Blood Count 9.6 4.8-10.8 K/uL Red Blood Count 3.50 L 4.00-5.50 MIL/uL Hemoglobin 10.7 L 12.0-16.0 g/dL Hematocrit 32.6 L 36-48 % Mean Corpuscular Volume 93.1 79-99 fL Mean Corpuscular Hemoglobin 30.6 27.0-33.0 pg Mean Corpuscular Hemoglobin Concent 32.8 32.0-36.0 g/dL Red Cell Distribution Width 13.5 11.0-15.5 % Platelet Count 284 130-400 K/uL Mean Platelet Volume 9.9 7.5-10.5 fL Immature Granulocyte % (Auto) 0.4 0-1 % Neutrophils (%) (Auto) 59.0 40.0-77.0 % Lymphocytes (%) (Auto) 31.3 21.0-51.0 % Monocytes (%) (Auto) 7.7 3.0-13.0 % Eosinophils (%) (Auto) 1.1 0.0-8.0 % Basophils (%) (Auto) 0.5 0.0-5.0 % Neutrophils # (Auto) 5.7 1.8-7.7 K/uL Lymphocytes # (Auto) 3.0 1.0-4.8 K/uL Monocytes # (Auto) 0.7 0.1-1.0 K/uL Eosinophils # (Auto) 0.11 0.00-0.70 K/uL Basophils # (Auto) 0.05 0.00-0.20 K/uL Absolute Immature Granulocyte (auto 0.04 0-1 K/uL Nucleated Red Blood Cells 0.0 0.0-0.19 % Sodium Level 139 136-145 mmol/L Potassium Level 4.1 3.5-5.1 mmol/L Chloride Level 108 101-111 mmol/L Carbon Dioxide Level 25 21-32 mmol/L Blood Urea Nitrogen 24 H 7-18 mg/dL Creatinine 0.8 0.5-1.0 mg/dL Glomerular Filtration Rate Calc 75 >90 mL/min Random Glucose 100 70-105 mg/dL Total Calcium 8.5 8.5-10.1 mg/dL Current Medications Medications (Trade) Dose Ordered Sig/Rashad Route PRN Reason Start Time Stop Time Status Last Admin Dose Admin Acetaminophen (TYLenol 325MG TAB) 650 mg Q6H PRN PO TEMPERATURE GREATER THAN 101.5 10/05/24 23:30 11/04/24 23:29 10/10/24 06:06 650 MG Aspirin (Aspirin 81mg Chew Tab) 81 mg DAILY PO 10/06/24 09:00 11/05/24 08:59 10/10/24 09:00 81 MG Atorvastatin Calcium (LIPItor 20MG) 20 mg HS PO 10/08/24 21:00 11/07/24 20:59 10/09/24 20:51 20 MG Cefazolin Sodium (Ancef) 2 gm ONCALL PRN IVP SURGERY 10/10/24 12:00 10/12/24 11:59 Cyclobenzaprine HCl (Cyclobenzaprine HCl) 5 mg TID PRN PO MUSCLE SPASMS 10/10/24 14:30 11/09/24 14:29 Heparin Sodium (Porcine) (HEParin 5,000 UNIT VIAL) *calculation based on ACTUAL B... AD PRN IV HEPARIN PROTOCOL 10/06/24 07:30 10/10/24 08:27 DC 10/06/24 07:19 3,877.5 UNIT Heparin Sodium (Porcine) (HEParin 5,000 UNIT VIAL) 5,000 unit BID SQ 10/06/24 09:00 10/06/24 06:29 DC Heparin Sodium/ Dextrose 250 ml @ 0 mls/hr Q6H IV 10/10/24 09:00 10/10/24 08:26 DC Heparin Sodium/ Dextrose 250 ml @ 0 mls/hr Q6H IV 10/06/24 07:30 10/10/24 08:17 DC 10/08/24 14:20 0 MLS/HR Insulin Human Regular (humuLIN R 100 UNIT/ML 3ML) INSULIN SLIDING SCAL... ACHS SQ 10/06/24 07:30 11/05/24 07:29 Levothyroxine Sodium (SYNTHroid 100MCG TAB) 100 mcg SYN PO 10/09/24 06:30 11/08/24 06:29 10/10/24 05:47 100 MCG Magnesium Sulfate 50 ml @ 0 mls/hr PROTOCOL PRN IV h 10/05/24 23:30 11/04/24 23:29 Metoprolol Tartrate (loprESSOR) 12.5 mg BID PO 10/07/24 09:00 11/06/24 08:59 10/10/24 08:59 12.5 MG Nitroglycerin (Nitroglycerin 1gm Oint) 0.5 inch Q8H TD 10/05/24 23:30 11/04/24 23:29 10/10/24 08:59 0.5 INCH Nitroglycerin (Nitrostat) 0.4 mg AD PRN SL CHEST PAIN 10/05/24 22:30 11/04/24 22:29 Ondansetron HCl (zoFRAN 4MG INJ) 4 mg Q6H PRN IV NAUSEA/VOMITING 10/05/24 23:30 11/04/24 23:29 Pantoprazole Sodium (PROTonix 40MG TAB) 40 mg DAILY PO 10/06/24 09:00 11/05/24 08:59 10/10/24 09:00 40 MG Pharmacy Profile Note (Pharmacy Communication) 1 each ONCE MISC 10/07/24 17:30 10/08/24 07:12 DC 10/07/24 23:37 1 EACH Potassium Chloride 100 ml @ 100 mls/hr AD PRN IV POTASSIUM PROTOCOL 10/05/24 23:30 11/04/24 23:29 Potassium Chloride (K-Dur/Klor-Con 20meq) 20 meq AD PRN PO POTASSIUM PROTOCOL 10/05/24 23:30 11/04/24 23:29 Potassium Chloride (KCl 10% Elixir 20meq/15ml) 20 meq AD PRN PO POTASSIUM PROTOCOL 10/05/24 23:30 11/04/24 23:29 10/09/24 21:00 20 MEQ Sodium Chloride 500 ml @ 0 mls/hr Q0M IV 10/06/24 21:30 11/05/24 21:29 Sodium Chloride (NS Flush 10ml) 10 ml Q8H IVP 10/07/24 17:30 11/06/24 17:29 10/10/24 09:00 10 ML Tramadol HCl (UltRAM) 25 mg Q6H PRN PO MODERATE PAIN (4-6) 10/10/24 14:30 10/15/24 14:29 DIAGNOSTICS / RADIOLOGY: [ ] ASSESSMENT: Chest pain, POA Abnormal EKG, POA Elevated troponin, POA CKD stage IIIA, POA uncontrolled Diabetes mellitius type2, POA Hypertension Hypothyroidism] Raynaud's phenomenon GI bleed resolved PLAN: [ Admit patient to PCCU as inpatient status. Place patient on telemetry monitoring. Administer aspirin 162 mg by mouth times 1 dose Continue aspirin 81 mg by mouth once daily Nitropaste 0.5 inches anterior chest wall every 8 hours Trend troponin every 6 hours x 3 sets Supplemental oxygen to maintain O2 saturation greater than 92% Patient will be followed by cardiology service, Dr. Miranda Avoid nephrotoxic agents when possible Renally dose all medications when possible Monitor intake and output Weight patient daily Monitor patient's labs Check hemoglobin A1c in a.m. Glucometer checks a.c. and HS 1800 ADA diet Humulin R sliding scale Check TSH in a.m., Consider resuming home medications once they are reconciled For now, Hydralazine 10 mg IV every 4 hours for systolic blood pressure greater than 160 mmHg GI prophylaxis, Protonix DVT prophylaxis, heparin Follow up with the echocardiogram results Follow up with catheterization lab results Follow up with immunology workup ATTESTATION BY PHYSICIAN I have seen and examined the patient. I reviewed the documentation, medical decision making, and treatment plan as noted by the mid-level provider above. I agree with the findings and plan of care. Angel Tyson MD, KEERTI K MD Oct 10, 2024 14:59
[2024-10-10] MEDS: traMADol HCL 50 MG TABLET PO PRN (16:13)
--- NOTE | 2024-10-10 22:56 | PN ---
CARDIOLOGY Reason for consult: NSTEMI HPI/story at presentation: This is a pleasant 79-year-old female with past medical history as below presents for chest discomfort. Patient was having mostly back pain and bilateral shoulder pain that was present yesterday morning and then subsequently, was in the ER for further evaluation and had significant elevated troponins therefore, cardiology was consulted for further evaluation and management Subjective: 10/06/2024 no active cardiac complaints 10/07/2024 no chest pain 10/08/2024 no further symptoms 10/09/2024 no complaints 10/10/2024 no complaints Past medical history: See below Allergies, Meds See chart Review of systems Review of Systems Constitutional: Negative for chills and fever. HENT: Negative for ear discharge and ear pain. Eyes: Negative for photophobia and discharge. Respiratory: Negative for cough, sputum production and stridor. Cardiovascular: Negative for chest pain and palpitations. Gastrointestinal: Negative for diarrhea and vomiting. Genitourinary: Negative for frequency. Musculoskeletal: Negative for myalgias. Skin: Negative for rash. Neurological: Negative for focal weakness and seizures. Endo/Heme/Allergies: Negative for polydipsia. Psychiatric/Behavioral: Negative for hallucinations. Vitals see chart PHYSICAL EXAMINATION GENERAL: The patient is alert and oriented*3 HEENT: Nonicteric sclerae, non traumatic HEART: Regular rate and rhythm with no murmurs LUNGS: Clear to auscultation bilaterally ABDOMEN: No acute issues, non tender GENITAL, RECTAL: deferred SKIN: No rash NEUROLOGIC: NFND EXTREMITIES: No edema ASSESSMENT NSTEMI On anticoagulation with heparin, 09/2024, stopped With abnormal EKG Elevated troponins Troponin greater than 18,000, 10/06/2024 GI BLEED suspected, heparin off 10/08/2024 CARDIOMYOPATHY EF 35-40% 09/2024 CHRONIC KIDNEY DISEASE HYPERTENSION CORE MEASURES On aspirin OTHER MEDICAL PROBLEMS Hypothyroidism PLAN 10/06/2024 patient with NSTEMI, atypical chest pain at presentation, EKG changes. Plan for cardiac catheterization tomorrow to further evaluate coronaries Echo pending. risk-benefit discussed extensively and patient wants to proceed. 10/07/2024 Cardiac catheterization today for further evaluation of non-STEMI. Risk-benefit discussed. Primary team addressing possible scleroderma given issues with dysphagia. No active chest pain at this time echo with EF of 35- 40%, on metoprolol aspirin - add statin 10/08/2024 No active cardiac complaints at this time, no further issues with chest or back pain, awaiting final decision from CV surgery regarding surgery. Continue maximal medical therapy. 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 There is a question of GI bleeding with dark stools. Will get an occult blood and hold heparin for now. On atorvastatin beta-estefania and aspirin, continue. Hemoglobin stable. Carotid duplex was negative. Seen and examined 10/04/2024 at around 5 PM 10/09/2024 Was previously evaluated CV surgery, timing of surgery to be determined. On statin beta-estefania aspirin. Labs okay, occult blood has been ordered and is still pending. No further issues with dark stools per report. Currently off anticoagulation. Seen and examined 10/09/2024 at around 1730 10/10/2024 Had an episode of chest discomfort/upper back pain, managed conservatively at this time, heparin was not started. Troponins are trending down. Potential plans for surgery tomorrow. Patient however, thinks this might be related to spinal issues. Seen and examined 10/10/2024 at around 0900 ATTESTATION I was involved substantially in the care of this patient Number and complexity of problems addressed: 1 acute illness with systemic features Amount and or complexity of data Review of prior external note(s) from each unique source: 2+ Ordering of each unique test : 0 Review of the result(s) of each unique test: 2+ Assessment requiring an independent historian(s): No Independent interpretation of test performed by another MD/QHCP/appropriate source (not separately reported) : No Discussion of management or test interpretation with external MD/QHCP/appropriate source (not separately reported) : No Risk status (cardiac, billing related): moderate Vitals/Labs Vital Signs Date Time Temp Pulse Resp B/P (MAP) Pulse Ox O2 Delivery O2 Flow Rate FiO2 10/10/24 20:00 99 Room Air* 0 21 10/10/24 19:00 98.1 72 18 140/72 Laboratory Tests 10/10/24 02:47 Medications Current Medications Morphine Sulfate 2 mg ONCE ONCE IVP Last administered on 10/05/24at 22:22; Start 10/05/24 at 22:30; Stop 10/05/24 at 22:31; Status DC Ketorolac Tromethamine 15 mg ONCE ONCE IV Last administered on 10/05/24at 23:34; Start 10/05/24 at 22:30; Stop 10/05/24 at 22:31; Status DC Nitroglycerin 0.4 mg AD PRN SL; Start 10/05/24 at 22:30; Stop 11/04/24 at 22:29 Aspirin 162 mg ONCE ONCE PO Last administered on 10/05/24at 23:32; Start 10/05/24 at 23:30; Stop 10/05/24 at 23:31; Status DC Aspirin 81 mg DAILY PO Last administered on 10/10/24at 09:00; Start 10/06/24 at 09:00; Stop 11/05/24 at 08:59 Nitroglycerin 0.5 inch Q8H TD Last administered on 10/10/24at 22:37; Start 10/05/24 at 23:30; Stop 11/04/24 at 23:29 Ondansetron HCl 4 mg Q6H PRN IV; Start 10/05/24 at 23:30; Stop 11/04/24 at 23:29 Heparin Sodium (Porcine) 5,000 unit BID SQ; Start 10/06/24 at 09:00; Stop 10/06/24 at 06:29; Status DC Pantoprazole Sodium 40 mg DAILY PO Last administered on 10/10/24at 09:00; Start 10/06/24 at 09:00; Stop 11/05/24 at 08:59 Acetaminophen 650 mg Q6H PRN PO Last administered on 10/10/24at 06:06; Start 10/05/24 at 23:30; Stop 11/04/24 at 23:29 Insulin Human Regular INSULIN SLIDING SCAL... ACHS SQ; Start 10/06/24 at 07:30; Stop 11/05/24 at 07:29 Potassium Chloride 100 ml @ 100 mls/hr AD PRN IV; Start 10/05/24 at 23:30; Stop 11/04/24 at 23:29 Potassium Chloride 20 meq AD PRN PO Last administered on 10/09/24at 21:00; Start 10/05/24 at 23:30; Stop 11/04/24 at 23:29 Potassium Chloride 20 meq AD PRN PO; Start 10/05/24 at 23:30; Stop 11/04/24 at 23:29 Magnesium Sulfate 50 ml @ 0 mls/hr PROTOCOL PRN IV; Start 10/05/24 at 23:30; Stop 11/04/24 at 23:29 Heparin Sodium (Porcine) *calculation based on ACTUAL B... AD PRN IV Last administered on 10/06/24at 07:19; Start 10/06/24 at 07:30; Stop 10/10/24 at 08:27; Status DC Heparin Sodium/ Dextrose 250 ml @ 0 mls/hr Q6H IV Last administered on 10/08/24at 14:20; Start 10/06/24 at 07:30; Stop 10/10/24 at 08:17; Status DC Atorvastatin Calcium 40 mg ONCE ONCE PO Last administered on 10/06/24at 21:22; Start 10/06/24 at 21:30; Stop 10/06/24 at 21:31; Status DC Clopidogrel Bisulfate 75 mg ONCE ONCE PO Last administered on 10/06/24at 21:22; Start 10/06/24 at 21:30; Stop 10/06/24 at 21:31; Status DC Metoprolol Tartrate 12.5 mg BID PO Last administered on 10/10/24at 20:55; Start 10/07/24 at 09:00; Stop 11/06/24 at 08:59 Sodium Chloride 500 ml @ 0 mls/hr Q0M IV; Start 10/06/24 at 21:30; Stop 11/05/24 at 21:29 Lidocaine HCl 20 ml STK-MED ONCE .ROUTE; Start 10/07/24 at 16:23; Stop 10/07/24 at 16:23; Status DC Iohexol 75 ml STK-MED ONCE IV; Start 10/07/24 at 16:23; Stop 10/07/24 at 16:23; Status DC Heparin Sodium (Porcine) 10,000 unit STK-MED ONCE .ROUTE; Start 10/07/24 at 16:23; Stop 10/07/24 at 16:23; Status DC Heparin Sodium/ Sodium Chloride 1,000 ml @ As Directed STK-MED ONCE IV; Start 10/07/24 at 16:23; Stop 10/07/24 at 16:23; Status DC Nitroglycerin 50 mg STK-MED ONCE .ROUTE; Start 10/07/24 at 16:23; Stop 10/07/24 at 16:23; Status DC Fentanyl Citrate 100 mcg STK-MED ONCE .ROUTE; Start 10/07/24 at 16:24; Stop 10/07/24 at 16:24; Status DC Midazolam HCl 2 mg STK-MED ONCE .ROUTE; Start 10/07/24 at 16:24; Stop 10/07/24 at 16:24; Status DC Nicardipine HCl 25 mg STK-MED ONCE IV; Start 10/07/24 at 16:24; Stop 10/07/24 at 16:24; Status DC Sodium Chloride 10 ml Q8H IVP Last administered on 10/10/24at 17:32; Start 10/07/24 at 17:30; Stop 11/06/24 at 17:29 Pharmacy Profile Note 1 each ONCE MISC Last administered on 10/07/24at 23:37; Start 10/07/24 at 17:30; Stop 10/08/24 at 07:12; Status DC Atorvastatin Calcium 20 mg HS PO Last administered on 10/10/24at 20:55; Start 10/08/24 at 21:00; Stop 11/07/24 at 20:59 Levothyroxine Sodium 100 mcg SYN PO Last administered on 10/10/24at 05:47; Start 10/09/24 at 06:30; Stop 11/08/24 at 06:29 Heparin Sodium/ Dextrose 250 ml @ 0 mls/hr Q6H IV; Start 10/10/24 at 09:00; Stop 10/10/24 at 08:26; Status DC Cefazolin Sodium 2 gm ONCALL PRN IVP; Start 10/10/24 at 12:00; Stop 10/12/24 at 11:59 Tramadol HCl 25 mg Q6H PRN PO Last administered on 10/10/24at 16:13; Start 10/10/24 at 14:30; Stop 10/15/24 at 14:29 Cyclobenzaprine HCl 5 mg TID PRN PO; Start 10/10/24 at 14:30; Stop 11/09/24 at 14:29 GUANACO ORELLANA MD Oct 10, 2024 22:56
[2024-10-11] VITALS (56 sets, daily range): BP systolic 100–258; BP diastolic 40–174; PULSE 55–145; RESP 5–21; TEMP 96.5–98.6; O2SAT 99–100
[2024-10-11 03:48] LABS: BASOPHILS # (AUTO) 0.07 K/uL (0.00-0.20); BASOPHILS % (AUTO) 0.7 % (0.0-5.0); EOSINOPHILS # (AUTO) 0.13 K/uL (0.00-0.70); EOSINOPHILS % (AUTO) 1.2 % (0.0-8.0); HEMATOCRIT 33.5 % (36-48); IMMATURE GRANULOCYTE ABSOLUTE 0.05 K/uL (0-1); LYMPHOCYTES # (AUTO) 2.9 K/uL (1.0-4.8); LYMPHOCYTES % (AUTO) 27.3 % (21.0-51.0); MEAN CORPUSCULAR HEMOGLOBIN 30.7 pg (27.0-33.0); MEAN CORPUSCULAR HGB CONC 32.5 g/dL (32.0-36.0); MEAN CORPUSCULAR VOLUME 94.4 fL (79-99); MONOCYTES # (AUTO) 0.9 K/uL (0.1-1.0); MONOCYTES % (AUTO) 7.9 % (3.0-13.0); NEUTROPHILS # (AUTO) 6.7 K/uL (1.8-7.7); NEUTROPHILS % (AUTO) 62.4 % (40.0-77.0); PLATELET COUNT (AUTO) 290 K/uL (130-400); RED BLOOD CELL COUNT(AUTO) 3.55 MIL/uL (4.00-5.50); RED CELL DISTRIBUTION WIDTH 13.6 % (11.0-15.5); WHITE BLOOD COUNT (AUTO) 10.7 K/uL (4.8-10.8)
[2024-10-11 03:57] LABS: INR 0.98 (0.85-1.15)
[2024-10-11 03:58] LABS: PARTIAL THROMBOPLASTIN TIME 26.7 SEC (26.3-35.5)
[2024-10-11 03:59] LABS: CREATININE 0.7 mg/dL (0.5-1.0); POTASSIUM 3.5 mmol/L (3.5-5.1)
[2024-10-11 04:05] LABS: BILIRUBIN,TOTAL 0.3 mg/dL (0.2-1.0); TOTAL PROTEIN, SERUM 6.5 g/dL (6.0-8.3)
[2024-10-11 04:10] LABS: B-TYPE NATRIURETIC PEPTIDE 821 pg/mL (0-100)
[2024-10-11] MEDS ORDERED: ceFAZolin SODIUM 1 GM VIAL ONE (06:50)
[2024-10-11] MEDS ORDERED: PAPAVERINE HCL 30 MG/ML 2ML VIAL ONE (06:51)
[2024-10-11] MEDS ORDERED: HEParin-NS 1,000 UNIT/500 ML 500 ML IV ONE (06:51)
[2024-10-11] MEDS ORDERED: EPINEPHrine PF 1MG (1:1,000) 10 MG in 0.9% NACL 250ML 240 ML IV PRN ×2 (07:00→09:00)
[2024-10-11] MEDS ORDERED: aminoCAProic ACID 5,000MG VIAL 15,000 MG in 0.9% NACL 500ML IV.SOLN 420 ML IV PRN (07:00)
[2024-10-11] MEDS ORDERED: NOREPINEPHRIN 8MG/250ML NS 250 ML IV PRN (07:00)
--- NOTE | 2024-10-11 07:11 | EKG ---
[facility] Test Date: 2024-10-11 Test Time: 06:42:17 Pat Name: WATSON BONILLA Department: [facility] Room: 212 Gender: F Program Manager Transportation: [id number] : [id number] Requested By: NAWAF GREGG Order Number: [id number] Reading MD: Asa Rodrigues Measurements Intervals [place] Rate: 64 P: 51 NV: 142 QRS: 0 QRSD: 93 T: 87 QT: 393 QTc: 406 Interpretive Statements Sinus rhythm Abnormal T, consider ischemia, anterior leads Compared to ECG 10/10/2024 07:57:45 No significant changes Electronically Signed On 10-11-2024 12:16:40 ENVIRONMENTAL RESOURCE SPECIALIST by sAa Rodrigues Please click the below link to view image of tracing.
[2024-10-11] MEDS ORDERED: FENTanyl CITRate PF 50 MCG/1 ML 20ML VIAL IJ ONE (07:56)
[2024-10-11] MEDS ORDERED: SODIUM BICARB 50MEQ 50ML VIAL 200 ML ONE (07:56)
[2024-10-11] MEDS ORDERED: LIDOCAINE PF 100MG/5ML (2%) SYRINGE 5ML ONE (07:56)
[2024-10-11] MEDS ORDERED: NOREPINEPHRINE BITARTRATE 1 MG/1 ML ML IV ONE (07:56)
[2024-10-11] MEDS ORDERED: EPINEPHrine PF 1MG (1:1,000) 1 MG/ML AMP ONE (07:56)
[2024-10-11] MEDS ORDERED: PROTamine SULFate 10 MG/ML 25ML VIAL IV ONE ×2 (07:56→09:54)
[2024-10-11] MEDS ORDERED: HEParin 10,000 UNIT/10ML (1,000 UNIT/ML) VIAL ONE ×3 (07:56→12:42)
[2024-10-11] MEDS ORDERED: MIDAZOLAM HCL 1 MG/ML 2ML VIAL ONE (07:57)
[2024-10-11] MEDS ORDERED: proPOFol 10 MG/ML 20ML VIAL IV ONE (07:57)
[2024-10-11] MEDS ORDERED: rocuRONium bROMide 10MG/1ML 5ML VL ONE (07:57)
[2024-10-11] MEDS ORDERED: ketaMINE 50MG/ML SYRINGE 50 MG/ML DISP.SYRIN ONE (07:57)
[2024-10-11] MEDS ORDERED: NITROGLYCERIN 50MG/D5W 250ML 1 BOT ONE (08:27)
[2024-10-11] MEDS: ceFAZolin SODIUM 2 GM VIAL IVPB ONE (08:30)
[2024-10-11 08:55] LABS: ABG BASE EXCESS -6.2 mmol/L (-2.0-3.0); ABG HCO3 18.9 mmol/L (21.0-28.0); ABG OXYGEN SATURATION 95.1 % (94.0-98.0); ABG PCO2 36 mmHg (32-45); CARBON MONOXIDE 0 % (0.5-1.5); DEVICE COMMENT 1; HHb 4.9; PO2, ARTERIAL BG 81.9 mmHg (83.0-108.0)
[2024-10-11] MEDS ORDERED: traMADol HCL 50 MG TABLET PO PRN (09:00)
[2024-10-11] MEDS ORDERED: acetaMINOPHEN 325 MG TAB PO PRN (09:00)
[2024-10-11] MEDS ORDERED: morPHINE 2 MG SYG IV PRN ×2 (09:00)
[2024-10-11] MEDS ORDERED: DEXTROSE 50%-WATER 50 ML DISP.SYRIN IV PRN ×2 (09:00→15:00)
[2024-10-11] MEDS ORDERED: GLUCAGON 1MG KIT 1 MG ML IM PRN ×2 (09:00→15:00)
[2024-10-11] MEDS ORDERED: dexmedeTOMIDine 400MCG/NS100ML IV SCH (09:00)
[2024-10-11] MEDS ORDERED: proPOFol 1000 MG/100 ML 100 ML IV PRN (09:00)
[2024-10-11] MEDS ORDERED: 0.9%NACL 1000ML 1,000 ML IV SCH (09:00)
[2024-10-11] MEDS ORDERED: 0.9% NACL 500ML IV.SOLN 500 ML IV SCH (09:00)
[2024-10-11] MEDS ORDERED: poTASSium PHOS 15 mMOL+NS250ML 250 ML IV PRN (09:00)
[2024-10-11] MEDS ORDERED: MAGNESIUM HYDROXIDE 30 ML/UDCUP PO PRN (09:00)
[2024-10-11] MEDS ORDERED: aminoCAProic ACID 5,000MG VIAL 15,000 MG in 0.9% NACL 250ML 250 ML IV SCH (09:00)
[2024-10-11] MEDS ORDERED: 0.9%NACL 10ML VIAL IVP PRN (09:00)
[2024-10-11] MEDS ORDERED: FAMOTIDINE 20MG VIAL IV SCH (09:00)
[2024-10-11] MEDS ORDERED: LACTULOSE 20 GM/30 ML UDCUP PO PRN (09:00)
[2024-10-11] MEDS ORDERED: acetaMINOPHEN 650 MG SUPPOSITORY RC PRN (09:00)
[2024-10-11] MEDS ORDERED: ePHEDrine SULFate 50 MG/ML AMPULE ONE (09:42)
[2024-10-11] MEDS ORDERED: VASOpressin 20 UNITS/ML 1ML VIAL ONE (09:42)
[2024-10-11] MEDS ORDERED: PROTamine SULFate 10 MG/ML 5 ML VIAL ONE (09:54)
[2024-10-11 10:12] LABS: ABG BASE EXCESS -2.4 mmol/L (-2.0-3.0); ABG HCO3 22.3 mmol/L (21.0-28.0); ABG OXYGEN SATURATION 98.8 % (94.0-98.0); ABG PCO2 38 mmHg (32-45); ABG PH 7.389 (7.350-7.450); CARBON MONOXIDE 0.3 % (0.5-1.5); DEVICE COMMENT 3; HHb 1.2; PO2, ARTERIAL BG 223.4 mmHg (83.0-108.0)
[2024-10-11] MEDS: 0.9%NACL 1000ML 1,000 ML IV ONE ×2 (10:30)
[2024-10-11 10:42] LABS: ABG BASE EXCESS -3.7 mmol/L (-2.0-3.0); ABG HCO3 21.5 mmol/L (21.0-28.0); ABG OXYGEN SATURATION 98.7 % (94.0-98.0); ABG PCO2 40 mmHg (32-45); ABG PH 7.353 (7.350-7.450); CARBON MONOXIDE 0.3 % (0.5-1.5); HHb 1.3; PO2, ARTERIAL BG 239.9 mmHg (83.0-108.0); VENT MODE, BG SIMV PS10 (ROOM AIR)
--- NOTE | 2024-10-11 10:47 | EKG ---
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 : 1945 Requested By: NAWAF GREGG Order Number: [id number] Reading MD: Asa Rodrigues Measurements Intervals [place] Rate: 86 P: 51 IN: 162 QRS: 59 QRSD: 78 T: 17 QT: 392 QTc: 469 Interpretive Statements Normal sinus rhythm Low voltage QRS ST elevation, consider anterolateral injury or acute infarct ACUTE AK / STEMI Compared to ECG 10/11/2024 06:42:17 Low QRS voltage now present ST (T wave) deviation now present Myocardial infarct finding now present T-wave abnormality no longer present Possible ischemia no longer present Electronically Signed On 10-11-2024 12:20:25 PLASTIC SHAPER by Asa Rodrigues Please click the below link to view image of tracing.
[2024-10-11] MEDS: ceFAZolin SODIUM 2 GM VIAL ONE (11:00)
[2024-10-11] MEDS ORDERED: VASOpressin 20 UNITS/ML 1ML Vi 40 UNITS in 0.9%NACL 50ML 40 ML IV SCH (11:00)
--- NOTE | 2024-10-11 11:04 | HMCIMG ---
CHEST 1VW HISTORY: Post CABG COMPARISON: None FINDINGS: A frontal projection of the chest was obtained. There are bilateral pulmonary infiltrates suggestive of pulmonary vascular congestion with possible superimposed pneumonitis. Poststernotomy changes are seen. The heart is enlarged. Degenerative changes of the thoracolumbar spine are present. All the lines and tubes are again seen in place. No evidence of aortic calcification is seen. IMPRESSION: 1. Bilateral pulmonary infiltrates are seen suggestive of pulmonary vascular congestion with possible superimposed pneumonitis.
[2024-10-11 11:16] LABS: HEMATOCRIT 25.8 % (36-48); MEAN CORPUSCULAR HEMOGLOBIN 31.1 pg (27.0-33.0); MEAN CORPUSCULAR HGB CONC 33.7 g/dL (32.0-36.0); MEAN CORPUSCULAR VOLUME 92.1 fL (79-99); RED BLOOD CELL COUNT(AUTO) 2.8 MIL/uL (4.00-5.50); RED CELL DISTRIBUTION WIDTH 13.4 % (11.0-15.5); WHITE BLOOD COUNT (AUTO) 29.6 K/uL (4.8-10.8)
[2024-10-11 11:20] LABS: CREATININE 0.7 mg/dL (0.5-1.0); MAGNESIUM 1.2 mg/dL (1.80-2.40); PHOSPHORUS 4.9 mg/dL (2.5-4.9); POTASSIUM 3.3 mmol/L (3.5-5.1)
[2024-10-11] MEDS: PoTASSium chloRIDE 20MEQ/100ML 100 ML IV PRN (11:20)
[2024-10-11] MEDS: SODIUM BICARB 50MEQ 50ML VIAL IV PRN (11:21)
[2024-10-11 11:35] LABS: INR 1.2 (0.85-1.15); PROTHROMBIN TIME 13.2 SEC (9.6-11.6)
[2024-10-11 11:36] LABS: PARTIAL THROMBOPLASTIN TIME 21.8 SEC (26.3-35.5)
--- NOTE | 2024-10-11 11:41 | CONS ---
"[facility] CONSULTATION NOTE Date Patient Seen: Oct 11, 2024 Time of Visit: 11:41 Supervising Physician: Nela Perez MD Reason for Consultation: Critical care management Primary Care Physician: Maine Euceda MD Outpatient Specialists: Inpatient Consults: CV Surgery Dr Gregg, Dr Rvai MD, BIS Attending physician|: Kali Carroll MD PROBLEM LIST: NSTEMI, POA, Multivessel CAD status post CABG x2 on 10/11/24 (Dr Gregg) Cardiomyopathy with EF of 35-40% POA Postoperative AFib with RVR on amiodarone drip and lidocaine drip CKD stage IIIA, POA hyperglycemia in the presence of type 2 diabetes mellitus, POA Hypertension Hypothyroidism Raynaud's phenomenon GI bleed resolved HPI: This is a 79-year-old female with a past medical history of hypertension, hypothyroidism, type 2 diabetes mellitus, NSTEMI, cardiomyopathy with the EF of 35-40% who was admitted to [facility] for chest pain and NSTEMI. She was taken for left heart catheterization by braille transcriber Dr. Rodrigues and found to have severe multivessel CAD and subsequently underwent CABG x2 today per Dr. Gregg. We are consulted for critical care management. Patient was seen in ICU room 212. IABP has been placed per NCCN via right femoral. Currently on one-to-one for MCS. Patient on multiple drips including nitroglycerin 20 micrograms/minute, Levophed has been turned off and continues with the epinephrine at 0.0.1 Mcg/kg per minute. Patient still intubated on mechanical ventilation support with on SIMV respiratory rate of 14tidal volume 450, FiO2 100% and PEEP of five. ABGs show pH of 7.48 pCO2 33.9 PO2 of 131 and bicarb 24.9. Current vital signs of blood pressure 140/49, heart rate 138, on AFib with RVR converted to post bolus of amiodarone, continues with the amiodarone drip and lidocaine drip. pO2 of 99% respiratory rate of 15. Chest tubes in place drained 70 mL. We will follow alongside with you. PAST MEDICAL HX: see above PAST SURGICAL HX: noncontributory SOCIAL HISTORY: No tobacco, ETOH, or illicit drug use Coded Allergies: No Known Drug Allergies (Unverified Allergy, Unknown, 10/20/19) REVIEW OF SYSTEMS: 12 point ROS reviewed with patient. Pertinent positives mentioned above. Otherwise negative. PHYSICAL EXAM: GENERAL: Intubated coming off sedation HEENT: Sclera non icteric, moist mucosa NECK: Supple, no JVD, trachea midline Rt IJ LUNGS: coarse crackles carlos breath sounds bilaterally. No wheezes HEART: Regular rate and rhythm. Normal S1 and S2, without murmurs , epicardial lead for pacemaker in place , dressing to midsternal area clean dry and intact. Chest tube ABD: Abdomen soft, nontender. Bowel sounds present EXT: No clubbing cyanosis or edema, rt femoral site of IABP bilateral pedal pulses + 1 NEURO: Postoperative still sedated. Vital Signs (last 8hr) Date Time Temp Pulse Resp B/P (MAP) Pulse Ox O2 Delivery O2 Flow Rate FiO2 10/11/24 10:38 118 100 10/11/24 07:10 97.3 63 18 123/58 99 Room Air LABS: Hematology Labs: Test 10/11/24 11:00 10/11/24 03:24 Range/Units White Blood Count 29.6 #H 4.8-10.8 K/uL Red Blood Count 2.80 #L 4.00-5.50 MIL/uL Hemoglobin 8.7 #L 12.0-16.0 g/dL Hematocrit 25.8 #L 36-48 % Mean Corpuscular Volume 92.1 79-99 fL Mean Corpuscular Hemoglobin 31.1 27.0-33.0 pg Mean Corpuscular Hemoglobin Concent 33.7 32.0-36.0 g/dL Red Cell Distribution Width 13.4 11.0-15.5 % Platelet Count 233 130-400 K/uL Mean Platelet Volume 10.4 7.5-10.5 fL Nucleated Red Blood Cells 0.0 0.0-0.19 % Immature Granulocyte % (Auto) 0.5 0-1 % Neutrophils (%) (Auto) 62.4 40.0-77.0 % Lymphocytes (%) (Auto) 27.3 21.0-51.0 % Monocytes (%) (Auto) 7.9 3.0-13.0 % Eosinophils (%) (Auto) 1.2 0.0-8.0 % Basophils (%) (Auto) 0.7 0.0-5.0 % Neutrophils # (Auto) 6.7 1.8-7.7 K/uL Lymphocytes # (Auto) 2.9 1.0-4.8 K/uL Monocytes # (Auto) 0.9 0.1-1.0 K/uL Eosinophils # (Auto) 0.13 0.00-0.70 K/uL Basophils # (Auto) 0.07 0.00-0.20 K/uL Absolute Immature Granulocyte (auto 0.05 0-1 K/uL Chemistry Labs: Test 10/11/24 11:00 10/11/24 05:45 10/11/24 03:24 10/10/24 16:09 Range/Units Sodium Level 148 H 136-145 mmol/L Potassium Level 3.3 L 3.5-5.1 mmol/L Chloride Level 111 101-111 mmol/L Carbon Dioxide Level 23 21-32 mmol/L Blood Urea Nitrogen 16 7-18 mg/dL Creatinine 0.7 0.5-1.0 mg/dL Glomerular Filtration Rate Calc 88 >90 mL/min Random Glucose 268 #H 70-105 mg/dL Total Calcium 8.5 8.5-10.1 mg/dL Phosphorus Level 4.9 2.5-4.9 mg/dL Magnesium Level 1.20 L 1.80-2.40 mg/dL Whole Blood Glucose 111 H 70-110 MG/DL Total Bilirubin 0.3 0.2-1.0 mg/dL Aspartate Amino Transf (AST/SGOT) 37 10-37 U/L Alanine Aminotransferase (ALT/SGPT) 37 12-78 U/L Alkaline Phosphatase 64 50-136 U/L B-Type Natriuretic Peptide 821 H 0-100 pg/mL Total Protein 6.5 6.0-8.3 g/dL Albumin 3.0 L 3.5-5.0 g/dL Triglycerides Level 134 30-200 mg/dL Cholesterol Level 116 <200 mg/dL LDL Cholesterol 61 0-99 mg/dL HDL Cholesterol 43 35-85 mg/dL Bedside Glucose Comment Notified Nurse Test 10/10/24 13:30 Range/Units Troponin I High Sensitivity 1280 *H 4-50 ng/L Coagulation Labs: Test 10/11/24 11:00 Range/Units Prothrombin Time 13.2 H 9.6-11.6 SEC Prothromb Time International Ratio 1.20 H 0.85-1.15 Activated Partial Thromboplast Time 21.8 L 26.3-35.5 SEC DIAGNOSTICS / RADIOLOGY RESULTS: [ ] Signed PATIENT: WATSNO BONILLA MR#: [id number] : 1945 SEX: F AGE: 79 LOCATION: 2CV ORDER [id number] STATUS: ADM IN REPORT#: [id number] SERVICE 1100 REASON: s/p CABG ORDERING PHYSICIAN: NAWAF GREGG MD PROCEDURE: CXR1VW - CHEST 1VW CHEST 1VW HISTORY: Post CABG COMPARISON: None FINDINGS: A frontal projection of the chest was obtained. There are bilateral pulmonary infiltrates suggestive of pulmonary vascular congestion with possible superimposed pneumonitis. Poststernotomy changes are seen. The heart is enlarged. Degenerative changes of the thoracolumbar spine are present. All the lines and tubes are again seen in place. No evidence of aortic calcification is seen. IMPRESSION: 1. Bilateral pulmonary infiltrates are seen suggestive of pulmonary vascular congestion with possible superimposed pneumonitis. DICTATED BY: CARLOS AZEVEDO MD DATE: 10/11/241101 ELECTRONICALLY SIGNED BY: CARLOS AZEVEDO MD DATE: 10/11/241103 PLAN Follow CT surgeon recommendations Follow cardiology recommendations Multimodal pain management Monitoring H&H Monitor chest tube output Chest x-ray in the morning Start SBT's as tolerated IABP managed by CV/Cardiology Monitor ABGs Transfuse if absolutely necessary to keep hemoglobin above 8 Maintain O2 sats greater than 92% Incentive spirometry once extubated Glycemic control with goal of 80-180 Referral for cardiac rehabilitation Speech to eval once patient is extubated monitor electrolytes: K Goal of 4 Magnesium goal of 2 Replace accordingly NEURO: Minimize central acting medications as possible. Fall Precautions. Well lighted room through the day and minimize interruptions through the night to prevent acute delirium. PULMONARY: Supplemental 02 as needed Titrate Fio2 to keep Spo2 > or = 90% DuoNebs and CPT as needed IS hourly while awake for pulmonary hygiene Out of bed to chair as tolerated CARDIOVASCULAR: Follow hemodynamics. Titrate vasopressor to keep MAP >65 or systolic blood pressure >95mmHg DIPS: Nitroglycerin Amiodarone Lidocaine Epinephrine Insulin LINES: See central line ET tube OG tube Chest tubes Arterial line IABP GI & NUTRITION: Continue nutritional support Aspirations precautions Prokinetic agents and laxatives as needed NPO for now KIDNEYS & ELECTROLYTES: Strict monitoring of intake and output Daily weights Avoid nephrotoxic agents Monitor electrolytes and replace as needed Goal urine output of 30mL/hr or 0.5mL/kg/hr Urine output: [ ] Fluid Balance: [ ] ENDOCRINE: Maintain blood glucose between 100-180 at all times. Insulin sliding scale for blood glucose management INFECTIOUS DISEASE: Trend temperature. Canales-culture if febrile. Micro: [ ] Antibiotics: [ ] Ancef x3 per CV protocol HEMATOLOGY & COAGULATION: Monitor H&H. Keep Hgb > 7 Transfuse 1 unit of PRBC for Hgb < 7 Transfuse 1 pack of platelets of platelets < 20, 000 Watch for any signs and symptoms of bleeding SKIN: Pressure ulcer prevention per facility protocol Rehab: PT/OT Prophylaxis: GI: Pepcid DVT: Ernst brown Code Status: Full Resuscitation Disposition: ICU Other: Total patient care time exceeds 60 minutes excluding all procedures. Case was discussed and seen with my supervising physician. The above plan was formulated and agreed upon. VJ WEN Oct 11, 2024 11:41"
[2024-10-11 11:52] LABS: ABG BASE EXCESS 1.7 mmol/L (-2.0-3.0); ABG HCO3 24.9 mmol/L (21.0-28.0); ABG OXYGEN SATURATION 97.9 % (94.0-98.0); ABG PCO2 34 mmHg (32-45); ABG PH 7.483 (7.350-7.450); CARBON MONOXIDE 0.3 % (0.5-1.5); HHb 2.1; PO2, ARTERIAL BG 131.6 mmHg (83.0-108.0); VENT MODE, BG SIMV PS 10 (ROOM AIR)
[2024-10-11] MEDS: AMIOdarone 900MG VIAL 150 MG in DEXTROSE 5%-WATER 100 ML IV SCH (11:57)
[2024-10-11] MEDS: CALCIUM GLUC 1GM 1 GM in 0.9%NACL 50ML 50 ML IV PRN (11:58)
[2024-10-11] MEDS: MAGNESIUM 2GM PREMIX 50ML 50 ML IV PRN (12:00)
[2024-10-11] MEDS: LIDOCAINE 2G/250ML 250 ML IV PRN (12:00)
[2024-10-11] MEDS ORDERED: ASPIRIN 81MG CHEW TAB NG ONE (12:00)
[2024-10-11] MEDS: NITROGLYCERIN 50MG/D5W 250ML 250 BOT IV SCH (12:00)
--- NOTE | 2024-10-11 12:00 | NUR ---
PT ARRIVED TO CVR [address] ELEVATIONS NOTED ON THE ANTERIOR LEADS. DR. RENE AND DR. GREGG NOTIFIED AT 1045. DR. RENE PLACED IABP AT 1140 WITH SURGICAL TEAM AT BEDSIDE. DR. GREGG MADE AWARE OF CONTINUING ST ELEVATIONS.
[2024-10-11] MEDS: INSULIN REGULAR, HUMAN 3ML 100 UNIT in 0.9%NACL 100ML 99 ML IV SCH (12:01)
[2024-10-11] MEDS: AMIOdarone 900MG VIAL 360 MG in DEXTROSE 5%-WATER 200 ML IV SCH (12:04)
[2024-10-11] MEDS: LIDOCAINE 2G/250ML 250 ML IV ONE (12:06)
[2024-10-11] MEDS: FAMOTIDINE 20MG VIAL IV SCH (12:24)
[2024-10-11] MEDS: acetaMINOPHEN 1,000 MG/100 ML VIAL IV SCH (12:25)
--- NOTE | 2024-10-11 12:27 | HMCIMG ---
CHEST 1VW HISTORY: Intra-aortic balloon pump placement COMPARISON: None FINDINGS: A frontal projection of the chest was obtained. Mild bilateral pulmonary infiltrates are seen may be related to mild pulmonary vascular congestion with possible superimposed pneumonitis. Poststernotomy changes are seen. The heart is enlarged. Degenerative changes of the thoracolumbar spine are present. Intra-aortic balloon pump is seen with distal tip at the level of the aortic arch. All the lines and tubes are again seen in place. No evidence of aortic calcification is seen. IMPRESSION: 1. Mild bilateral pulmonary infiltrates are seen may be related to mild pulmonary vascular congestion with possible superimposed pneumonitis.
[2024-10-11] MEDS ORDERED: ATROPINE 1MG SYG IVP ONE (12:42)
[2024-10-11] MEDS ORDERED: IOHEXOL 350 MG/ML 100ML INFUS..BTL IV ONE ×2 (12:42→13:34)
[2024-10-11] MEDS ORDERED: HEParin-NS 1,000 UNIT/500 ML 1,000 ML IV ONE (12:42)
[2024-10-11] MEDS ORDERED: NITROGLYCERIN 50MG VIAL ONE (12:42)
[2024-10-11] MEDS ORDERED: LIDOCAINE HCL 400MG/20ML VIAL ONE (12:43)
--- NOTE | 2024-10-11 12:48 | NUR ---
PT EMERGENTLY TAKEN TO COMPUTATIONAL GENETICIST FOR PCI BY DR. TAYLOR. FAMILY MADE AWARE OF CHANGE IN CONDITION AND CONSENT SIGNED BY AND DAUGHTER AT BEDSIDE.
--- NOTE | 2024-10-11 12:53 | HMCIMG ---
CHEST 1VW HISTORY: Preop CABG COMPARISON: 10/05/2024 FINDINGS: A frontal projection of the chest was obtained. Prominent interstitial markings are seen with possible superimposed infiltrates. The heart is borderline enlarged. Degenerative changes are seen. No evidence of aortic calcification is seen. IMPRESSION: 1. Prominent interstitial markings are seen with possible superimposed infiltrates.
[2024-10-11] MEDS ORDERED: BIVALIRUDIN 250 MG/VIAL IV ONE (13:27)
[2024-10-11] MEDS ORDERED: cloPIDOgrel 300MG TAB ONE (13:45)
[2024-10-11 14:30] LABS: ABG BASE EXCESS -1.5 mmol/L (-2.0-3.0); ABG OXYGEN SATURATION 98.9 % (94.0-98.0); ABG PCO2 32 mmHg (32-45); ABG PH 7.451 (7.350-7.450); CARBON MONOXIDE 0.3 % (0.5-1.5); HHb 1.1; PO2, ARTERIAL BG 351.8 mmHg (83.0-108.0); VENT MODE, BG SIMV PS 10 (ROOM AIR)
--- NOTE | 2024-10-11 14:35 | NUR ---
DR. GREGG CALLED AND INFORMED OF STENT PLACEMENT IN [employer]AST[employer]NAGEMENT ENGINEER BY DR. TAYLOR.
--- NOTE | 2024-10-11 14:49 | PN ---
[facility] PROGRESS NOTE Date of Service: Oct 11, 2024 Time of Service: 14:25 SUBJECTIVE: Ms. Mac is a 79-year-old female that was seen and examined today on 10/05/2024. Patient is a good historian and personal health. Patient states that she came to the emergency department with a chief complaint of bilateral chest wall pain closer to the axilla and pain also radiates to the back. Onset was 9:30 a.m.. Character is described as throbbing. Symptoms are aggravated with palpation and movement. Symptoms are not alleviated with a chiropractic adjustment in fact symptoms became worse after a chiropractic adjustment. There was no alleviating factors Duration of pain is on and off. Patient denies any associated shortness of breath, nausea, vomiting, headache, dizziness. Today in the emergency department CBC unremarkable, troponin 378 (high sensitivity), creatinine 1.1, glucose 208 mg/dL, GFR 51, no urinalysis has been collected or sent to lab. Emergency room initial impression and EKG is that there is new T-wave inversions signifying a change from previous EKGs one week ago at a prior emergency room visit. For this reason emergency room physician recommended patient be admitted with a diagnosis of chest pain. 10/06/24 patient was seen and examined in the ER. She reports that she was doing much better. She denies any chest pain. And she tells me that she came in because she had back pain radiating to bilateral shoulders. She does go to chiropractor to get this resolved but this time it was more persistent 10/07/2024 - patient is seen at bedside in the room ER 5. Patient denies any active chest pain, shortness of breath, nausea, vomiting. [place] [id number] and is coming down with treatment, patient is planned for lab pack chemist. Patient feels anxious about the upcoming lab pack chemist procedure and question regarding the procedures, all questions were answered. Patient informed about her extremities getting cold and color change to purplish red and about her joint problems and trouble of food getting stuck in the esophagus after swallowing , immunology workup is planned to rule out limited scleroderma . Patient is hemodynamically stable with temperature 98.6, pulse 77, respiratory rate 17, blood pressure 146/77, pulse oximetry 99% on room air. Patient's labs shows WBC 10.4, hemoglobin 13.5, chemistries show sodium 141, potassium 4.3, creatinine 0.8, BUN 14. Patient is currently on metoprolol, pantoprazole, aspirin, heparin, nitroglycerin. Patient will be followed rajiv kuldip, we will follow Cardiology recommendations. 10/08/2024 - patient is seen in room 201, patient denies any symptoms, patient was taken to the lab pack chemist yesterday in the results are as follows SELECTIVE CORONARY ANGIOGRAPHY: 1. Left main: The left main bifurcates into the left anterior descending and circumflex coronary artery. Distal Left main with 50% stenosis 2. Left anterior descending: The left anterior descending coronary artery gives rise to diagonal(s) and terminates as the apical recurrent branch. Prox LAD with 90% disease 3. Circumflex: The circumflex coronary artery is noted to provide obtuse marginal(s). Prox Cx with 95% disease 4. Right coronary artery: The right coronary artery is dominant and gives PDA and NIKITA. Prox RCA with 50% disease 5. Left ventricular end-diastolic pressure is elevated. There was no gradient noted upon pullback. Cardiothoracic surgeon is consulted and Dr. Gregg has ordered an ultrasound carotid has a preoperative procedure. patient will be continued on medical management until the surgery . Patient is currently hemodynamically stable with temperature 98.2, pulse 81, blood pressure 122/80, respiratory rate 18, saturating at 94% on room air. Patient's labs shows WBC 10.7, hemoglobin 11.9 and chemistries show sodium 142, potassium 3.7, creatinine 0.7. Awaiting further instructions from cardio thoracic surgeon. 10/09/2024 - patient is seen at bedside in room 201. Patient is currently asymptomatic but complained of mild pain yesterday night which is relieved with nitro patch. Patient had black tarry stool episode yesterday and the heparin is put on hold currently she informed that this morning she had a normal colored stool. Patient has been seen by Dr. Gregg and he informed about the surgery but has not scheduled it yet. Needle Grinder following the case closely and recommends continuing the medical management until the surgery patient is currently hemodynamically stable with temperature 97.9, pulse 73, respiratory rate 16, blood pressure 113/58 and saturating at 99% on room air. Patient's labs shows WBC 9.6, hemoglobin 11.3 And chemistries show sodium 138, potassium 3.6, creatinine 0.8, BUN 24. Patient will be followed closely. 10/10/2024 - patient is seen at bedside in room 201. Patient is complaining of mild pain in the back which is reproducible on palpation and also mentioned about mild chest pain which presents on bending forward, pain is relieved by sitting straight. Patient requested medication for the back pain and we ordered Flexeril and Ultram p.r.n. heparin is currently on hold troponin is trending down. Heparin to be continued if troponin trending up and will be held with the patient has black tarry stools again. Cardiac thoracic surgery might plan to surgery on the weekend. Patient's vitals temperature 98.1, pulse 60, respiratory rate 20, blood pressure 125/59, saturating at 99% on room air. Patient's labs shows WBC 9.6, hemoglobin 10.7 and chemistries show sodium 139, potassium 4.1, creatinine 0.8, BUN 24 and troponin has trended down from 2346 to 1280. We will be following Cardiology recommendations. We will be monitoring the case closely. 10/11/2024 - patient is seen at bedside in room 212. Patient is seen post CABG, intubated. Cardiology anesthesia informed about the procedure done and about placing 2 grafts for the stenosed vessels - LAD, left circumflex. Also informed about recovery of some heart function due to the return of perfusion . Patient had AFib after the surgery and she was started on amiodarone and lidocaine drip. Patient also had IABP placed to assist with EF. Patient is on other drips like nitro, epinephrine, ventilation settings are respiratory rate 14 , tidal volume 450, FiO2 100%, peep of 5 . Patient currently return to sinus rhythm after the amiodarone bolus. Patient's white count elevated to 29.6 and chemistries show sodium 148, potassium 3.3, magnesium 1.2 , it will be replaced. Patient will be monitored closely. REVIEW OF SYSTEMS CONSTITUTIONAL: Denies fevers, chills, or night sweats. No unintentional weight loss reported. NEUROLOGICAL: Denies headache, amaurosis fugax, motor weakness, sensory deficit, vertigo/spinning sensation, gait abnormalities, or tremors. ENT: No hearing loss, otalgia, otorrhea, rhinitis, rhinorrhea, hoarseness, or sore throat. CARDIOVASCULAR: Denies any exertional angina, dyspnea on exertion, orthopnea, paroxysmal nocturnal dyspnea, palpitations, life-threatening arrhythmias, claudication. PULMONARY: Denies any shortness of breath, cough, phlegm/sputum, hemoptysis, pleuritic chest pain. SLEEP: Denies morning headaches, daytime somnolence or napping. Denies diffi culty falling asleep, staying asleep, waking from sleep. Denies knowledge of snoring. GASTROINTESTINAL: Denies any type of dysphagia to either liquids or solids. Denies nausea, vomiting, pyrosis, early satiety, abdominal pain, diarrhea, constipation, or changes in stool consistency or caliber. Denies coffee-ground emesis, hematemesis, hematochezia, or melanotic stools. GENITOURINARY: Denies frequency, urgency, nocturia, hematuria or incontinence (Storage/Irritative symptoms.) Low urinary stream, straining to void, urinary intermittency or hesitancy, splitting of the voiding stream, terminal dribbling. ENDOCRINOLOGIC: Denies polyuria, polydipsia, polyphagia or heat/cold int olerances. HEMATOLOGIC: Denies thrombophilia/previous clots, or coagulopathy/bleeding disorders. ONCOLOGIC: Denies personal history of malignancy. DERMATOLOGIC: Denies rashes or pruritus. PSYCHIATRIC: Denies any suicidal or homicidal ideation. Denies hallucinations. PHYSICAL EXAM GENERAL APPEARANCE: The patient is awake, alert, and oriented, in no acute cardiopulmonary distress. NEUROLOGICAL: Cranial nerves II-XII grossly intact. Motor is 5/5 in bilateral upper and lower extremities proximal to distal. No sensory deficits. HEENT: Face is symmetric. Pupils are equal and reactive. Extraocular movements are intact. NECK: Supple. No JVD. No thyromegaly. No submental, submandibular, pre- /postauricular, occipital or supraclavicular lymphadenopathy. CHEST: Normal chest expansion. No Telemetry. LUNGS: Absence of any rales, rhonchi or any wheezing. CARDIOVASCULAR: Regular. S1 and S2 normal. No appreciable rubs, murmurs or gallops. ABDOMEN: Soft, nontender, and nondistended. There is no rebound, voluntary guarding, or rigidity. : Deferred. No Rosa. EXTREMITIES: Non-edematous and not cyanotic. No clubbing. Good capillary refill. SKIN: No skin breakdown. Vital Signs (last 8hr) Date Time Temp Pulse Resp B/P (MAP) Pulse Ox O2 Delivery O2 Flow Rate FiO2 10/11/24 13:07 100 100 10/11/24 12:00 94 100 10/11/24 10:38 118 100 10/11/24 07:10 97.3 63 18 123/58 99 Room Air LABS: Laboratory: Test 10/11/24 11:51 10/11/24 11:00 10/11/24 05:45 10/11/24 03:24 Range/Units Blood Gas Specimen Type Arterial Arterial Blood pH 7.483 H 7.350-7.450 Arterial Blood Partial Pressure CO2 34 32-45 mmHg Arterial Blood Partial Pressure O2 131.6 H 83.0-108.0 mmHg Arterial Blood HCO3 24.9 21.0-28.0 mmol/L Arterial Blood Oxygen Saturation 97.9 94.0-98.0 % Arterial Blood Base Excess 1.7 -2.0-3.0 mmol/L Hemoglobin (Blood Gas) 10.6 L 12.0-16.0 g/dL Sodium (Blood Gas) 145 136-145 MMOL/L Bedside Potassium (Blood Gas) 4.0 3.4-4.5 MMOL/L Bedside Chloride (Blood Gas) 107 98-107 MMOL/L Bedside Glucose (Blood Gas) 265 H 65-95 MG/DL Bedside Ionized Calcium (Blood Gas) 1.16 1.15-1.33 MMOL/L Bedside Lactic Acid (Blood Gas) 4.14 *H 0.36-0.75 MMOL/L Blood Gas Temperature 37.0 35.5-37.0 CELSIUS Blood Gas Respiration Rate 14.0 min. Blood Gas Vent Mode SIMV PS 10 ROOM AIR FiO2 100.0 % Blood Gas Tidal Volume 450 ml Blood Gas PEEP 5 cm H2O Blood Gas Specimen Comment SELENA PISANO RN White Blood Count 29.6 #H 4.8-10.8 K/uL Red Blood Count 2.80 #L 4.00-5.50 MIL/uL Hemoglobin 8.7 #L 12.0-16.0 g/dL Hematocrit 25.8 #L 36-48 % Mean Corpuscular Volume 92.1 79-99 fL Mean Corpuscular Hemoglobin 31.1 27.0-33.0 pg Mean Corpuscular Hemoglobin Concent 33.7 32.0-36.0 g/dL Red Cell Distribution Width 13.4 11.0-15.5 % Platelet Count 233 130-400 K/uL Mean Platelet Volume 10.4 7.5-10.5 fL Nucleated Red Blood Cells 0.0 0.0-0.19 % Prothrombin Time 13.2 H 9.6-11.6 SEC Prothromb Time International Ratio 1.20 H 0.85-1.15 Activated Partial Thromboplast Time 21.8 L 26.3-35.5 SEC Sodium Level 148 H 136-145 mmol/L Potassium Level 3.3 L 3.5-5.1 mmol/L Chloride Level 111 101-111 mmol/L Carbon Dioxide Level 23 21-32 mmol/L Blood Urea Nitrogen 16 7-18 mg/dL Creatinine 0.7 0.5-1.0 mg/dL Glomerular Filtration Rate Calc 88 >90 mL/min Random Glucose 268 #H 70-105 mg/dL Total Calcium 8.5 8.5-10.1 mg/dL Phosphorus Level 4.9 2.5-4.9 mg/dL Magnesium Level 1.20 L 1.80-2.40 mg/dL Whole Blood Glucose 111 H 70-110 MG/DL Immature Granulocyte % (Auto) 0.5 0-1 % Neutrophils (%) (Auto) 62.4 40.0-77.0 % Lymphocytes (%) (Auto) 27.3 21.0-51.0 % Monocytes (%) (Auto) 7.9 3.0-13.0 % Eosinophils (%) (Auto) 1.2 0.0-8.0 % Basophils (%) (Auto) 0.7 0.0-5.0 % Neutrophils # (Auto) 6.7 1.8-7.7 K/uL Lymphocytes # (Auto) 2.9 1.0-4.8 K/uL Monocytes # (Auto) 0.9 0.1-1.0 K/uL Eosinophils # (Auto) 0.13 0.00-0.70 K/uL Basophils # (Auto) 0.07 0.00-0.20 K/uL Absolute Immature Granulocyte (auto 0.05 0-1 K/uL Total Bilirubin 0.3 0.2-1.0 mg/dL Aspartate Amino Transf (AST/SGOT) 37 10-37 U/L Alanine Aminotransferase (ALT/SGPT) 37 12-78 U/L Alkaline Phosphatase 64 50-136 U/L B-Type Natriuretic Peptide 821 H 0-100 pg/mL Total Protein 6.5 6.0-8.3 g/dL Albumin 3.0 L 3.5-5.0 g/dL Triglycerides Level 134 30-200 mg/dL Cholesterol Level 116 <200 mg/dL LDL Cholesterol 61 0-99 mg/dL HDL Cholesterol 43 35-85 mg/dL Test 10/10/24 16:09 10/10/24 13:30 10/10/24 12:10 Range/Units Bedside Glucose Comment Notified Nurse Troponin I High Sensitivity 1280 *H 4-50 ng/L Stool Occult Blood NEGATIVE NEGATIVE Current Medications Medications (Trade) Dose Ordered Sig/Rashad Route PRN Reason Start Time Stop Time Status Last Admin Dose Admin Acetaminophen (TYLenol 325MG TAB) 650 mg Q4H PRN PO Temp >38.3C(AFTER EXTUBATION) 10/11/24 09:00 11/10/24 08:59 Acetaminophen (TYLenol 325MG TAB) 650 mg Q6H PRN PO MILD PAIN (1-3) 10/11/24 09:00 11/10/24 08:59 Acetaminophen (TYLenol 325MG TAB) 650 mg Q6H PRN PO TEMPERATURE GREATER THAN 101.5 10/05/24 23:30 11/04/24 23:29 10/10/24 06:06 650 MG Acetaminophen (TYLenol 650MG SUPPOSITORY) 650 mg Q4H PRN RC Temp >38.3C WHILE INTUBATED 10/11/24 09:00 11/10/24 08:59 Acetaminophen (acetaMINOPHEN) 1,000 mg Q6H6 IV 10/11/24 12:00 10/12/24 11:59 10/11/24 12:25 1,000 MG Albumin Human 250 ml @ 0 mls/hr AD PRN IV IF HEMODYNAMICALLY UNSTABLE 10/11/24 09:00 Aminocaproic Acid 10382 mg/Sodium Chloride 310 ml @ 25 mls/hr AD IV 10/11/24 09:00 10/11/24 08:54 DC Aminocaproic Acid 38813 mg/Sodium Chloride 480 ml @ 0 mls/hr AD PRN IV BLEEDING CONTROL 10/11/24 07:00 11/10/24 06:59 Amiodarone HCl 150 mg/Dextrose 103 ml @ 618 mls/hr ONCE IV 10/11/24 12:00 10/11/24 12:09 DC 10/11/24 11:57 618 MLS/HR Amiodarone HCl 360 mg/Dextrose 207.2 ml @ 33.3 mls/hr AD IV 10/11/24 12:00 11/10/24 11:59 10/11/24 12:04 33.3 MLS/HR Amiodarone HCl 540 mg/Dextrose 310.8 ml @ 16.7 mls/hr [id number] IV 10/11/24 12:00 11/10/24 11:59 Aspirin (Aspirin 81mg Chew Tab) 81 mg DAILY PO 10/06/24 09:00 11/05/24 08:59 10/11/24 12:23 81 MG Atorvastatin Calcium (LIPItor 20MG) 20 mg HS PO 10/08/24 21:00 10/11/24 08:37 DC 10/10/24 20:55 20 MG Atorvastatin Calcium (LIPItor 20MG) 40 mg HS PO 10/11/24 21:00 11/10/24 20:59 Calcium Gluconate 1 gm/Sodium Chloride 60 ml @ 200 mls/hr AD PRN IV HYPOCALCEMIA 10/11/24 09:00 11/10/24 08:59 10/11/24 11:58 200 MLS/HR Cefazolin Sodium (Ancef) 2 gm ONCALL PRN IVP SURGERY 10/10/24 12:00 10/12/24 11:59 Cefazolin Sodium (Ancef) 2 gm Q8H IVPB 10/11/24 14:00 10/12/24 06:01 Clopidogrel Bisulfate (plaVIX 75MG) 75 mg DAILY PO 10/12/24 09:00 11/11/24 08:59 Cyclobenzaprine HCl (Cyclobenzaprine HCl) 5 mg TID PRN PO MUSCLE SPASMS 10/10/24 14:30 10/11/24 08:37 DC Dexmedetomidine/ Sodium Chloride (PRECEdex 400MCG/ 100ML-NS) 400 mcg PROTOCOL IV 10/11/24 09:00 10/12/24 08:59 Dextrose (D50w) 50 ml AD PRN IV HYPOGLYCEMIA PROTOCOL 10/11/24 09:00 11/10/24 08:59 Docusate Sodium (COLace 100MG CAP) 100 mg BID PO 10/12/24 09:00 11/11/24 08:59 Enoxaparin Sodium (Lovenox) 30 mg DAILY SQ 10/14/24 09:00 10/11/24 14:00 DC Epinephrine HCl 10 mg/Sodium Chloride 250 ml @ 7.716 mls/ hr AD PRN IV POST-OP CARDIOVASCULAR ORDERS 10/11/24 09:00 10/16/24 08:59 Epinephrine HCl 10 mg/Sodium Chloride 250 ml @ 0 mls/hr AD PRN IV TITRATE 10/11/24 07:00 10/11/24 09:01 DC Famotidine (Pepcid 20mg Vial) 20 mg BID IV 10/11/24 09:00 10/11/24 09:03 DC Famotidine (Pepcid 20mg Vial) 20 mg Q24H IV 10/11/24 09:30 11/10/24 08:59 10/11/24 12:24 20 MG Furosemide (LASix 20MG TAB) 20 mg Q12H PO 10/13/24 09:00 11/12/24 08:59 Furosemide (LASix 20MG VIAL) 20 mg Q12H IV 10/12/24 09:00 10/13/24 08:59 Glucagon (Glucagon 1mg Kit) 1 mg AD PRN IM HYPOGLYCEMIA PROTOCOL 10/11/24 09:00 11/10/24 08:59 Heparin Sodium (Porcine) (HEParin 5,000 UNIT VIAL) *calculation based on ACTUAL B... AD PRN IV HEPARIN PROTOCOL 10/06/24 07:30 10/10/24 08:27 DC 10/06/24 07:19 3,877.5 UNIT Heparin Sodium (Porcine) (HEParin 5,000 UNIT VIAL) 5,000 unit BID SQ 10/06/24 09:00 10/06/24 06:29 DC Heparin Sodium/ Dextrose 250 ml @ 0 mls/hr PROTOCOL IV 10/11/24 16:00 11/10/24 15:59 Heparin Sodium/ Dextrose 250 ml @ 0 mls/hr Q6H IV 10/10/24 09:00 10/10/24 08:26 DC Heparin Sodium/ Dextrose 250 ml @ 0 mls/hr Q6H IV 10/06/24 07:30 10/10/24 08:17 DC 10/08/24 14:20 0 MLS/HR Insulin Human Regular (humuLIN R 100 UNIT/ML 3ML) INSULIN SLIDING SCAL... ACHS SQ 10/06/24 07:30 10/11/24 08:37 DC Insulin Human Regular 100 unit/ Sodium Chloride 100 ml @ 0 mls/hr AD IV 10/11/24 09:00 10/13/24 08:59 10/11/24 12:01 3 MLS/HR Lactulose (Constulose 20gm/ 30ml Udcup) 20 gm BID PRN PO CONSTIPATION 10/11/24 09:00 11/10/24 08:59 Levothyroxine Sodium (SYNTHroid 100MCG TAB) 100 mcg SYN PO 10/09/24 06:30 11/08/24 06:29 10/10/24 05:47 100 MCG Lidocaine HCl/ Dextrose 250 ml @ 0 mls/hr AD PRN IV TITRATE 10/11/24 11:00 11/10/24 10:59 10/11/24 12:00 15 MLS/HR Magnesium Hydroxide (Milk Of Magnesium 30ml) 30 ml DAILY PRN PO CONSTIPATION 10/11/24 09:00 11/10/24 08:59 Magnesium Sulfate 50 ml @ 12.5 mls/hr AD PRN IV MAG LEVEL LESS THAN 2.0 10/11/24 09:00 11/10/24 08:59 10/11/24 12:20 12.5 MLS/HR Magnesium Sulfate 50 ml @ 0 mls/hr PROTOCOL PRN IV h 10/05/24 23:30 10/11/24 08:37 DC Metoprolol Tartrate (loprESSOR) 12.5 mg BID PO 10/07/24 09:00 10/11/24 08:37 DC 10/11/24 06:32 12.5 MG Metoprolol Tartrate (loprESSOR) 12.5 mg BID PO 10/13/24 09:00 11/12/24 08:59 Morphine Sulfate (morPHINE 2MG SYG) 0.5 mg Q2H PRN IV MODERATE PAIN (4-6) 10/11/24 09:00 10/12/24 08:59 Morphine Sulfate (morPHINE 2MG SYG) 1 mg Q2H PRN IV SEVERE PAIN (7-10) 10/11/24 09:00 10/18/24 08:59 Nitroglycerin (Nitroglycerin 1gm Oint) 0.5 inch Q8H TD 10/05/24 23:30 10/11/24 08:37 DC 10/10/24 22:37 0.5 INCH Nitroglycerin (Nitrostat) 0.4 mg AD PRN SL CHEST PAIN 10/05/24 22:30 10/11/24 08:37 DC Nitroglycerin/ Dextrose 0 ml @ 0 mls/hr AD IV 10/11/24 09:00 10/14/24 08:59 10/11/24 12:00 0 MLS/HR Norepinephrine Bitartrate 250 ml @ 0 mls/hr AD PRN IV TITRATE 10/11/24 07:00 10/11/24 09:03 DC Norepinephrine Bitartrate 250 ml @ 0 mls/hr AD PRN IV POST-OP CARDIOVASCULAR ORDERS 10/11/24 09:00 11/10/24 08:59 Ondansetron HCl (zoFRAN 4MG INJ) 4 mg Q6H PRN IV NAUSEA/VOMITING 10/11/24 09:00 11/10/24 08:59 Ondansetron HCl (zoFRAN 4MG INJ) 4 mg Q6H PRN IV NAUSEA/VOMITING 10/05/24 23:30 10/11/24 08:37 DC Pantoprazole Sodium (PROTonix 40MG TAB) 40 mg DAILY PO 10/06/24 09:00 10/11/24 08:37 DC 10/10/24 09:00 40 MG Pharmacy Profile Note (Pharmacy Communication) 1 each ONCE MISC 10/07/24 17:30 10/08/24 07:12 DC 10/07/24 23:37 1 EACH Potassium Phosphate 250 ml @ 42 mls/hr AD PRN IV LOW PHOS LEVEL 10/11/24 09:00 11/10/24 08:59 Potassium Chloride 100 ml @ 100 mls/hr AD PRN IV HYPOKALEMIA 10/11/24 09:00 11/10/24 08:59 10/11/24 11:20 100 MLS/HR Potassium Chloride 100 ml @ 100 mls/hr AD PRN IV POTASSIUM PROTOCOL 10/05/24 23:30 10/11/24 08:37 DC Potassium Chloride (K-Dur/Klor-Con 20meq) 20 meq AD PRN PO POTASSIUM PROTOCOL 10/05/24 23:30 10/11/24 08:37 DC Potassium Chloride (KCl 10% Elixir 20meq/15ml) 20 meq AD PRN PO POTASSIUM PROTOCOL 10/05/24 23:30 10/11/24 08:37 DC 10/09/24 21:00 20 MEQ Propofol 100 ml @ 0 mls/hr AD PRN IV SEDATION 10/11/24 09:00 10/15/24 08:59 Sodium Bicarbonate (Sodium Bicarb 50meq 50ml Vial) 50 meq AD PRN IV OTHER[SEE DOSING INSTRUCTIONS] 10/11/24 09:00 10/14/24 08:59 10/11/24 11:21 50 MEQ Sodium Chloride 500 ml @ 0 mls/hr AD IV 10/11/24 09:00 11/10/24 08:59 Sodium Chloride 500 ml @ 0 mls/hr Q0M IV 10/06/24 21:30 10/11/24 08:37 DC Sodium Chloride 1,000 ml @ 10 mls/hr ONCE IV 10/11/24 09:00 10/11/24 08:52 DC Sodium Chloride (NS Flush 10ml) 10 ml Q8H IVP 10/07/24 17:30 11/06/24 17:29 10/11/24 00:49 10 ML Sodium Chloride (NS Flush 10ml) 10 ml Q8H PRN IVP IV LINE FLUSH 10/11/24 09:00 11/10/24 08:59 Tramadol HCl (UltRAM) 25 mg Q6H PRN PO MODERATE PAIN (4-6) 10/10/24 14:30 10/11/24 08:37 DC 10/10/24 16:13 25 MG Tramadol HCl (UltRAM) 25 mg Q6H PRN PO MODERATE PAIN (4-6) 10/11/24 09:00 10/16/24 08:59 Tramadol HCl (UltRAM) 50 mg Q6H PRN PO SEVERE PAIN (7-10) 10/11/24 09:00 10/16/24 08:59 Vasopressin 40 units/Sodium Chloride 40 ml @ 0 mls/hr PROTOCOL IV 10/11/24 11:00 11/10/24 10:59 PATIENT: WATSON MAC MR#: [id number] : 1945 SEX: F AGE: 79 LOCATION: 2CV ORDER [id number] STATUS: ADM IN REPORT#: [id number] SERVICE 1134 REASON: iabp placement ORDERING PHYSICIAN: HECTOR RENE DO PROCEDURE: CXR1VW - CHEST 1VW CHEST 1VW HISTORY: Intra-aortic balloon pump placement COMPARISON: None FINDINGS: A frontal projection of the chest was obtained. Mild bilateral pulmonary infiltrates are seen may be related to mild pulmonary vascular congestion with possible superimposed pneumonitis. Poststernotomy changes are seen. The heart is enlarged. Degenerative changes of the thoracolumbar spine are present. Intra-aortic balloon pump is seen with distal tip at the level of the aortic arch. All the lines and tubes are again seen in place. No evidence of aortic calcification is seen. IMPRESSION: 1. Mild bilateral pulmonary infiltrates are seen may be related to mild pulmonary vascular congestion with possible superimposed pneumonitis. DICTATED BY: CARLOS AZEVEDO MD DATE: 10/11/241223 ELECTRONICALLY SIGNED BY: CARLOS AZEVEDO MD DATE: 10/11/24 1227 PATIENT: WATSON MAC MR#: [id number] : 1945 SEX: F AGE: 79 LOCATION: 2CV ORDER [id number] STATUS: ADM IN REPORT#: [id number] SERVICE 1100 REASON: s/p CABG ORDERING PHYSICIAN: NAWAF GREGG MD PROCEDURE: CXR1VW - CHEST 1VW CHEST 1VW HISTORY: Post CABG COMPARISON: None FINDINGS: A frontal projection of the chest was obtained. There are bilateral pulmonary infiltrates suggestive of pulmonary vascular congestion with possible superimposed pneumonitis. Poststernotomy changes are seen. The heart is enlarged. Degenerative changes of the thoracolumbar spine are present. All the lines and tubes are again seen in place. No evidence of aortic calcification is seen. IMPRESSION: 1. Bilateral pulmonary infiltrates are seen suggestive of pulmonary vascular congestion with possible superimposed pneumonitis. DICTATED BY: CARLOS AZEVEDO MD DATE: 10/11/24 1102 ELECTRONICALLY SIGNED BY: CARLOS AZEVEDO MD DATE: 10/11/24 1104 DIAGNOSTICS / RADIOLOGY: PATIENT: WATSON MAC MR#: [id number] : 1945 SEX: F AGE: 79 LOCATION: 2CV ORDER [id number] STATUS: ADM IN REPORT#: [id number] SERVICE 0600 REASON: preop CABG ORDERING PHYSICIAN: NAWAF GREGG MD PROCEDURE: CXR1VW - CHEST 1VW CHEST 1VW HISTORY: Preop CABG COMPARISON: 10/05/2024 FINDINGS: A frontal projection of the chest was obtained. Prominent interstitial markings are seen with possible superimposed infiltrates. The heart is borderline enlarged. Degenerative changes are seen. No evidence of aortic calcification is seen. IMPRESSION: 1. Prominent interstitial markings are seen with possible superimposed infiltrates. DICTATED BY: CARLOS AZEVEDO MD DATE: 10/11/24 1250 ELECTRONICALLY SIGNED BY: CARLOS AZEVEDO MD DATE: 10/11/24 1253 ASSESSMENT: Chest pain, POA Abnormal EKG, POA Elevated troponin, POA CKD stage IIIA, POA uncontrolled Diabetes mellitius type2, POA Hypertension POA Hypothyroidism POA Raynaud's phenomenon POA GI bleed resolved NSTEMI POA Status post CABG x2 on 10/11/2024 Postoperative AFib with RVR clinically insignificant PLAN: Follow Cardiothoracic recommendations and Cardiology recommendations Maintain electrolyte balance Incentive spirometry once extubated Follow hemoglobin closely and transfuse if it goes under 8 ATTESTATION BY PHYSICIAN I have seen and examined the patient. I reviewed the documentation, medical decision making, and treatment plan as noted by the mid-level provider above. I agree with the findings and plan of care. Angel Tyson MD, KEERTI K MD Oct 11, 2024 14:49
[2024-10-11] MEDS: ceFAZolin SODIUM 2 GM VIAL IVPB SCH (15:04)
--- NOTE | 2024-10-11 15:18 | NUR ---
DR. GREGG CALLED AND INFORMED OF ORDER TO START HEPARIN DRIP. LATEST LABS/ABG/CT OUTPUT/UOP READ TO . PER , OKAY TO START HEPARIN DRIP.
[2024-10-11] MEDS ORDERED: HEParin 25,000 UNITS/250ML D5W 250 ML IV SCH (16:00)
[2024-10-11 16:12] LABS: ABG BASE EXCESS -1.9 mmol/L (-2.0-3.0); ABG OXYGEN SATURATION 98.4 % (94.0-98.0); ABG PCO2 29 mmHg (32-45); ABG PH 7.478 (7.350-7.450); CARBON MONOXIDE 0.3 % (0.5-1.5); HHb 1.6; PO2, ARTERIAL BG 163.9 mmHg (83.0-108.0); VENT MODE, BG SIMV PS 10 (ROOM AIR)
[2024-10-11] MEDS: HEParin 25,000 UNITS/250ML D5W 250 ML IV SCH (16:14)
--- NOTE | 2024-10-11 16:55 | EKG ---
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 diana : 1945 Requested By: NAWAF GREGG Order Number: [id number] Reading MD: Sahil Zuniga Measurements Intervals [place] Rate: 117 P: 204 IA: 107 QRS: 43 QRSD: 73 T: -34 QT: 356 QTc: 486 Interpretive Statements Sinus or ectopic atrial tachycardia Multiple premature complexes, vent & supraven anterolateral infarct, acute STEMI Compared to ECG 10/11/2024 10:46:29 Sinus rhythm no longer present ST (T wave) deviation no longer present Myocardial infarct finding still present Electronically Signed On 10-11-2024 18:15:48 MANAGER UNION by Sahil Zuniga Please click the below link to view image of tracing.
[2024-10-11 17:16] LABS: HEMATOCRIT 26.5 % (36-48)
[2024-10-11 17:31] LABS: MAGNESIUM 2.6 mg/dL (1.80-2.40); PHOSPHORUS 3.1 mg/dL (2.5-4.9); POTASSIUM 4.9 mmol/L (3.5-5.1)
[2024-10-11 17:46] LABS: ABG BASE EXCESS -4.4 mmol/L (-2.0-3.0); ABG HCO3 19.7 mmol/L (21.0-28.0); ABG OXYGEN SATURATION 97.8 % (94.0-98.0); ABG PCO2 33 mmHg (32-45); CARBON MONOXIDE 0.2 % (0.5-1.5); HHb 2.2; PO2, ARTERIAL BG 139.2 mmHg (83.0-108.0); VENT MODE, BG SIMV PS10 (ROOM AIR)
--- NOTE | 2024-10-11 18:05 | NUR ---
SPEECH TRIGGER COMPLETED (INTUBATION). Pt IS A 79 Y.O. FEMALE ADMITTED SECONDARY TO CHEST PAIN AND EKG CHANGES. Pt HAS A PAST MEDICAL HISTORY SIGNIFICANT FOR HYPERTENSION, HYPOTHYROIDISM, AND DM TYPE 2. Pt CURRENTLY INTUBATED AND NPO. PLEASE REQUEST SPEECH THERAPY SERVICES FOR SKILLED BEDSIDE SWALLOW EVALUATION 24 HOURS POST EXTUBATION IF ANY S/S OF ASPIRATION ARISE WITH ORAL INTAKE. Addendum: 10/11/[address] [facility] PEREZ Amended: Links added.
[2024-10-11] MEDS: AMIOdarone 900MG VIAL 540 MG in DEXTROSE 5%-WATER 300 ML IV SCH (18:20)
--- NOTE | 2024-10-11 18:47 | OP ---
DATE OF PROCEDURE: 10/11/2024 PREOPERATIVE DIAGNOSIS: Coronary artery disease, left main equivalent. POSTOPERATIVE DIAGNOSIS: Coronary artery disease, left main equivalent. PROCEDURES PERFORMED: Off-pump CABG x 2, WILSON to LAD, reverse saphenous vein graft to oblique marginal. SURGEON: Pepito Licona MD. RECONCILIATION MACHINE OPERATOR: Dr. Fernando. ANESTHESIOLOGIST: Dr. Charlton. PARTS COUNTERPERSON: Dr. Berry. DISPOSITION: Stable. COMPLICATIONS: None. INDICATIONS FOR SURGERY: This is a patient of [facility] presented with left main equivalent, really LATHA 1 flow on the LAD and 90+ % obstruction in the proximal circumflex. The patient has depressed ventricular function of 20-25%. A lesion about 50% in the proximal right coronary artery, which is diffusely calcified. The patient has a small body habitus, only 51 kilos and has got small coronary targets. The WILSON was anastomosed to the LAD. The oblique marginal 3, which was a larger vessel was bypassed. Transesophageal echocardiogram was utilized to monitor function. It was depressed at first and required inotropic support during the procedure, but upon revascularization, the septum and anterior wall started moving better. The patient was fully dependent. The right coronary artery had a 50% lesion. This was not bypassed. I have had the opportunity to review the films and discussed the case with the patient prior to surgery. The patient understood the indications as well as the potential complications of the operation including but not limited to postoperative bleeding, infection, stroke and/or as well as associated morbidity and mortality procedures related to her own comorbidities and wishes to proceed with surgery. The patient understands the associated morbidity and mortality of the procedure as it relates to her own comorbidities. IMPLANTS: Three GUILLE plates with 18 #14 gauge screws. DRAINS: 32 mediastinal and 19 left-sided Dick. Atrial and ventricular pacemaker wires temporary. DESCRIPTION OF PROCEDURE IN DETAIL: With the patient in supine position after adequate induction of general endotracheal anesthesia, preoperative intravenous antibiotics, percutaneous arterial and venous lines, surgeon directed timeout utilizing 2 patient identifiers followed by mid sternotomy, simultaneous harvesting of the left internal mammary artery from anterior left chest wall and greater saphenous vein from the left lower extremity using endoscopic technique. The patient systemically heparinized and the mammary artery from chest in preparation for bypass. Chest retractor was placed. Utilizing mechanical stabilizer and 4-prong tourniquet for vascular control, 2 distal anastomoses performed between WILSON and LAD and reverse saphenous vein graft and oblique marginal. Heartstring device was utilized to perform the proximal anastomosis with running suture of 5-0 Prolene. Protamine, hemostasis and closure. Two chest drains, stainless steel wires for sternum. Rigid fixation with 3 GUILLE plates and 18 #14 gauge screws, #1 Vicryl and 3-0 Monocryl for closure. The patient transferred to the ICU in stable condition. TID: [id number] RECEIPT: [id number]
[2024-10-11 18:58] LABS: ABG BASE EXCESS 5.6 mmol/L (-2.0-3.0); ABG HCO3 28.4 mmol/L (21.0-28.0); ABG OXYGEN SATURATION 97.7 % (94.0-98.0); ABG PCO2 34 mmHg (32-45); ABG PH 7.538 (7.350-7.450); CARBON MONOXIDE 0.3 % (0.5-1.5); HHb 2.3; PO2, ARTERIAL BG 117.8 mmHg (83.0-108.0); VENT MODE, BG SIMV PS 10 (ROOM AIR)
--- NOTE | 2024-10-11 19:56 | PN ---
CARDIOLOGY Reason for consult: NSTEMI HPI/story at presentation: This is a pleasant 79-year-old female with past medical history as below presents for chest discomfort. Patient was having mostly back pain and bilateral shoulder pain that was present yesterday morning and then subsequently, was in the ER for further evaluation and had significant elevated troponins therefore, cardiology was consulted for further evaluation and management Subjective: 10/06/2024 no active cardiac complaints 10/07/2024 no chest pain 10/08/2024 no further symptoms 10/09/2024 no complaints 10/10/2024 no complaints 10/11/2024 intubated Past medical history: See below Allergies, Meds See chart Review of systems intubated 10/11/2024 Vitals see chart PHYSICAL EXAMINATION GENERAL: intubated 10/11/2024 HEENT: Nonicteric sclerae, non traumatic HEART: Regular rate and rhythm with no murmurs LUNGS:intubated 10/11/2024 ABDOMEN: No acute issues, non tender GENITAL, RECTAL: deferred SKIN: No rash NEUROLOGIC: intubated 10/11/2024 EXTREMITIES: No edema ASSESSMENT NSTEMI,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 Plan for cardiac catheterization tomorrow to further evaluate coronaries Echo pending. risk-benefit discussed extensively and patient wants to proceed. 10/07/2024 Cardiac catheterization today for further evaluation of non-STEMI. Risk-benefit discussed. Primary team addressing possible scleroderma given issues with dysphagia. No active chest pain at this time echo with EF of 35- 40%, on metoprolol aspirin - add statin 10/08/2024 No active cardiac complaints at this time, no further issues with chest or back pain, awaiting final decision from CV surgery regarding surgery. Continue maximal medical therapy. 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 There is a question of GI bleeding with dark stools. Will get an occult blood and hold heparin for now. On atorvastatin beta-estefania and aspirin, continue. Hemoglobin stable. Carotid duplex was negative. Seen and examined 10/04/2024 at around 5 PM 10/09/2024 Was previously evaluated CV surgery, timing of surgery to be determined. On statin beta-estefania aspirin. Labs okay, occult blood has been ordered and is still pending. No further issues with dark stools per report. Currently off anticoagulation. Seen and examined 10/09/2024 at around 1730 10/10/2024 Had an episode of chest discomfort/upper back pain, managed conservatively at this time, heparin was not started. Troponins are trending down. Potential plans for surgery tomorrow. Patient however, thinks this might be related to spinal issues. Seen and examined 10/10/2024 at around 0900 10/11/2024 I was called in the late morning today by Dr. العراقي with concerns of ST elevations after surgery. Patient was taken emergently to cardiac catheterization and underwent intervention to the LAD. Patient had an occluded WILSON. Postprocedure, patient was doing well with hemodynamic stability and improvement in pressor requirements. Potential plans for extubation also noted. Seen and examined 10/11/2024 multiple times ATTESTATION I was involved substantially in the care of this patient Number and complexity of problems addressed: 1 acute illness taht is a threat to life or bodily function Amount and or complexity of data Review of prior external note(s) from each unique source: 2+ Ordering of each unique test : 0 Review of the result(s) of each unique test: 2+ Assessment requiring an independent historian(s): No Independent interpretation of test performed by another MD/QHCP/appropriate source (not separately reported) : No Discussion of management or test interpretation with external MD/QHCP/appropriate source (not separately reported) : yes, CVT surgery Risk status (cardiac, billing related): high Vitals/Labs Vital Signs Date Time Temp Pulse Resp B/P (MAP) Pulse Ox O2 Delivery O2 Flow Rate FiO2 10/11/24 19:15 98.4 74 12 114/44 (67) 99 126/48 (74) 10/11/24 19:01 40 10/11/24 16:00 Ventilator+ 0 Laboratory Tests 10/11/24 03:24 10/11/24 11:00 10/11/24 16:40 Medications Current Medications Morphine Sulfate 2 mg ONCE ONCE IVP Last administered on 10/05/24at 22:22; Start 10/05/24 at 22:30; Stop 10/05/24 at 22:31; Status DC Ketorolac Tromethamine 15 mg ONCE ONCE IV Last administered on 10/05/24at 23:34; Start 10/05/24 at 22:30; Stop 10/05/24 at 22:31; Status DC Nitroglycerin 0.4 mg AD PRN SL; Start 10/05/24 at 22:30; Stop 10/11/24 at 08:37; Status DC Aspirin 162 mg ONCE ONCE PO Last administered on 10/05/24at 23:32; Start 10/05/24 at 23:30; Stop 10/05/24 at 23:31; Status DC Aspirin 81 mg DAILY PO Last administered on 10/11/24at 12:23; Start 10/06/24 at 09:00; Stop 11/05/24 at 08:59 Nitroglycerin 0.5 inch Q8H TD Last administered on 10/10/24at 22:37; Start 10/05/24 at 23:30; Stop 10/11/24 at 08:37; Status DC Ondansetron HCl 4 mg Q6H PRN IV; Start 10/05/24 at 23:30; Stop 10/11/24 at 08:37; Status DC Heparin Sodium (Porcine) 5,000 unit BID SQ; Start 10/06/24 at 09:00; Stop 10/06/24 at 06:29; Status DC Pantoprazole Sodium 40 mg DAILY PO Last administered on 10/10/24at 09:00; Start 10/06/24 at 09:00; Stop 10/11/24 at 08:37; Status DC Acetaminophen 650 mg Q6H PRN PO Last administered on 10/10/24at 06:06; Start 10/05/24 at 23:30; Stop 11/04/24 at 23:29 Insulin Human Regular INSULIN SLIDING SCAL... ACHS SQ; Start 10/06/24 at 07:30; Stop 10/11/24 at 08:37; Status DC Potassium Chloride 100 ml @ 100 mls/hr AD PRN IV; Start 10/05/24 at 23:30; Stop 10/11/24 at 08:37; Status DC Potassium Chloride 20 meq AD PRN PO Last administered on 10/09/24at 21:00; Start 10/05/24 at 23:30; Stop 10/11/24 at 08:37; Status DC Potassium Chloride 20 meq AD PRN PO; Start 10/05/24 at 23:30; Stop 10/11/24 at 08:37; Status DC Magnesium Sulfate 50 ml @ 0 mls/hr PROTOCOL PRN IV; Start 10/05/24 at 23:30; Stop 10/11/24 at 08:37; Status DC Heparin Sodium (Porcine) *calculation based on ACTUAL B... AD PRN IV Last administered on 10/06/24at 07:19; Start 10/06/24 at 07:30; Stop 10/10/24 at 08:27; Status DC Heparin Sodium/ Dextrose 250 ml @ 0 mls/hr Q6H IV Last administered on 10/08/24at 14:20; Start 10/06/24 at 07:30; Stop 10/10/24 at 08:17; Status DC Atorvastatin Calcium 40 mg ONCE ONCE PO Last administered on 10/06/24at 21:22; Start 10/06/24 at 21:30; Stop 10/06/24 at 21:31; Status DC Clopidogrel Bisulfate 75 mg ONCE ONCE PO Last administered on 10/06/24at 21:22; Start 10/06/24 at 21:30; Stop 10/06/24 at 21:31; Status DC Metoprolol Tartrate 12.5 mg BID PO Last administered on 10/11/24at 06:32; Start 10/07/24 at 09:00; Stop 10/11/24 at 08:37; Status DC Sodium Chloride 500 ml @ 0 mls/hr Q0M IV; Start 10/06/24 at 21:30; Stop 10/11/24 at 08:37; Status DC Lidocaine HCl 20 ml STK-MED ONCE .ROUTE; Start 10/07/24 at 16:23; Stop 10/07/24 at 16:23; Status DC Iohexol 75 ml STK-MED ONCE IV; Start 10/07/24 at 16:23; Stop 10/07/24 at 16:23; Status DC Heparin Sodium (Porcine) 10,000 unit STK-MED ONCE .ROUTE; Start 10/07/24 at 16:23; Stop 10/07/24 at 16:23; Status DC Heparin Sodium/ Sodium Chloride 1,000 ml @ As Directed STK-MED ONCE IV; Start 10/07/24 at 16:23; Stop 10/07/24 at 16:23; Status DC Nitroglycerin 50 mg STK-MED ONCE .ROUTE; Start 10/07/24 at 16:23; Stop 10/07/24 at 16:23; Status DC Fentanyl Citrate 100 mcg STK-MED ONCE .ROUTE; Start 10/07/24 at 16:24; Stop 10/07/24 at 16:24; Status DC Midazolam HCl 2 mg STK-MED ONCE .ROUTE; Start 10/07/24 at 16:24; Stop 10/07/24 at 16:24; Status DC Nicardipine HCl 25 mg STK-MED ONCE IV; Start 10/07/24 at 16:24; Stop 10/07/24 at 16:24; Status DC Sodium Chloride 10 ml Q8H IVP Last administered on 10/11/24at 00:49; Start 10/07/24 at 17:30; Stop 11/06/24 at 17:29 Pharmacy Profile Note 1 each ONCE MISC Last administered on 10/07/24at 23:37; Start 10/07/24 at 17:30; Stop 10/08/24 at 07:12; Status DC Atorvastatin Calcium 20 mg HS PO Last administered on 10/10/24at 20:55; Start 10/08/24 at 21:00; Stop 10/11/24 at 08:37; Status DC Levothyroxine Sodium 100 mcg SYN PO Last administered on 10/10/24at 05:47; Start 10/09/24 at 06:30; Stop 11/08/24 at 06:29 Heparin Sodium/ Dextrose 250 ml @ 0 mls/hr Q6H IV; Start 10/10/24 at 09:00; Stop 10/10/24 at 08:26; Status DC Cefazolin Sodium 2 gm ONCALL PRN IVP; Start 10/10/24 at 12:00; Stop 10/12/24 at 11:59 Tramadol HCl 25 mg Q6H PRN PO Last administered on 10/10/24at 16:13; Start 10/10/24 at 14:30; Stop 10/11/24 at 08:37; Status DC Cyclobenzaprine HCl 5 mg TID PRN PO; Start 10/10/24 at 14:30; Stop 10/11/24 at 08:37; Status DC Epinephrine HCl 10 mg/Sodium Chloride 250 ml @ 0 mls/hr AD PRN IV; Start 10/11/24 at 07:00; Stop 10/11/24 at 09:01; Status DC Norepinephrine Bitartrate 250 ml @ 0 mls/hr AD PRN IV; Start 10/11/24 at 07:00; Stop 10/11/24 at 09:03; Status DC Aminocaproic Acid 14317 mg/Sodium Chloride 480 ml @ 0 mls/hr AD PRN IV; Start 10/11/24 at 07:00; Stop 11/10/24 at 06:59 Cefazolin Sodium 1 gm STK-MED ONCE .ROUTE; Start 10/11/24 at 06:50; Stop 10/11/24 at 06:51; Status DC Heparin Sodium/ Sodium Chloride 500 ml @ As Directed STK-MED ONCE IV; Start 10/11/24 at 06:51; Stop 10/11/24 at 06:51; Status DC Papaverine HCl 60 mg STK-MED ONCE .ROUTE; Start 10/11/24 at 06:51; Stop 10/11/24 at 06:51; Status DC Cefazolin Sodium 2 gm STK-MED ONCE .ROUTE; Start 10/11/24 at 06:53; Stop 10/11/24 at 06:54; Status DC Sodium Chloride 1,000 ml @ As Directed STK-MED ONCE IV; Start 10/11/24 at 06:53; Stop 10/11/24 at 06:54; Status DC Protamine Sulfate 250 mg STK-MED ONCE IV; Start 10/11/24 at 07:56; Stop 10/11/24 at 07:56; Status DC Lidocaine HCl 100 mg STK-MED ONCE .ROUTE; Start 10/11/24 at 07:56; Stop 10/11/24 at 07:56; Status DC Heparin Sodium (Porcine) 10,000 unit STK-MED ONCE .ROUTE; Start 10/11/24 at 07:56; Stop 10/11/24 at 07:56; Status DC Epinephrine HCl 1 mg STK-MED ONCE .ROUTE; Start 10/11/24 at 07:56; Stop 10/11/24 at 07:56; Status DC Sodium Bicarbonate 200 ml @ As Directed STK-MED ONCE .ROUTE; Start 10/11/24 at 07:56; Stop 10/11/24 at 07:56; Status DC Norepinephrine Bitartrate 4 mg STK-MED ONCE IV; Start 10/11/24 at 07:56; Stop 10/11/24 at 07:56; Status DC Fentanyl Citrate 1,000 mcg STK-MED ONCE IJ; Start 10/11/24 at 07:56; Stop 10/11/24 at 07:57; Status DC Propofol 200 mg STK-MED ONCE IV; Start 10/11/24 at 07:57; Stop 10/11/24 at 07:57; Status DC Midazolam HCl 2 mg STK-MED ONCE .ROUTE; Start 10/11/24 at 07:57; Stop 10/11/24 at 07:57; Status DC Rocuronium [place] 50 mg STK-MED ONCE .ROUTE; Start 10/11/24 at 07:57; Stop 10/11/24 at 07:57; Status DC Ketamine HCl 50 mg STK-MED ONCE .ROUTE; Start 10/11/24 at 07:57; Stop 10/11/24 at 07:58; Status DC Nitroglycerin/ Dextrose 1 ml @ As Directed STK-MED ONCE .ROUTE; Start 10/11/24 at 08:27; Stop 10/11/24 at 08:27; Status DC Atorvastatin Calcium 40 mg HS PO; Start 10/11/24 at 21:00; Stop 11/10/24 at 20:59 Acetaminophen 1,000 mg Q6H6 IV Last administered on 10/11/24at 12:25; Start 10/11/24 at 12:00; Stop 10/12/24 at 11:59 Aspirin 81 mg ONCE ONCE NG; Start 10/11/24 at 12:00; Stop 10/11/24 at 08:42; Status DC Docusate Sodium 100 mg BID PO; Start 10/12/24 at 09:00; Stop 11/11/24 at 08:59 Lactulose 20 gm BID PRN PO; Start 10/11/24 at 09:00; Stop 11/10/24 at 08:59 Furosemide 20 mg Q12H PO; Start 10/13/24 at 09:00; Stop 11/12/24 at 08:59 Furosemide 20 mg Q12H IV; Start 10/12/24 at 09:00; Stop 10/13/24 at 08:59 Enoxaparin Sodium 30 mg DAILY SQ; Start 10/14/24 at 09:00; Stop 10/11/24 at 14:00; Status DC Metoprolol Tartrate 12.5 mg BID PO; Start 10/13/24 at 09:00; Stop 11/12/24 at 08:59 Magnesium Hydroxide 30 ml DAILY PRN PO; Start 10/11/24 at 09:00; Stop 11/10/24 at 08:59 Dexmedetomidine/ Sodium Chloride 400 mcg PROTOCOL IV; Start 10/11/24 at 09:00; Stop 10/12/24 at 08:59 Acetaminophen 650 mg Q6H PRN PO; Start 10/11/24 at 09:00; Stop 11/10/24 at 08:59 Sodium Chloride 1,000 ml @ 10 mls/hr ONCE IV; Start 10/11/24 at 09:00; Stop 10/11/24 at 08:52; Status DC Sodium Chloride 10 ml Q8H PRN IVP; Start 10/11/24 at 09:00; Stop 11/10/24 at 08:59 Morphine Sulfate 0.5 mg Q2H PRN IV; Start 10/11/24 at 09:00; Stop 10/12/24 at 08:59 Morphine Sulfate 1 mg Q2H PRN IV; Start 10/11/24 at 09:00; Stop 10/18/24 at 08:59 Acetaminophen 650 mg Q4H PRN RC; Start 10/11/24 at 09:00; Stop 11/10/24 at 08:59 Ondansetron HCl 4 mg Q6H PRN IV; Start 10/11/24 at 09:00; Stop 11/10/24 at 08:59 Sodium Chloride 500 ml @ 0 mls/hr AD IV; Start 10/11/24 at 09:00; Stop 11/10/24 at 08:59 Nitroglycerin/ Dextrose 0 ml @ 0 mls/hr AD IV Last administered on 10/11/24at 12:00; Start 10/11/24 at 09:00; Stop 10/14/24 at 08:59 Propofol 100 ml @ 0 mls/hr AD PRN IV; Start 10/11/24 at 09:00; Stop 10/15/24 at 08:59 Norepinephrine Bitartrate 250 ml @ 0 mls/hr AD PRN IV; Start 10/11/24 at 09:00; Stop 11/10/24 at 08:59 Epinephrine HCl 10 mg/Sodium Chloride 250 ml @ 7.716 mls/ hr AD PRN IV; Start 10/11/24 at 09:00; Stop 10/16/24 at 08:59 Aminocaproic Acid 50210 mg/Sodium Chloride 310 ml @ 25 mls/hr AD IV; Start 10/11/24 at 09:00; Stop 10/11/24 at 08:54; Status DC Calcium Gluconate 1 gm/Sodium Chloride 60 ml @ 200 mls/hr AD PRN IV Last administered on 10/11/24at 19:16; Start 10/11/24 at 09:00; Stop 11/10/24 at 08:59 Magnesium Sulfate 50 ml @ 12.5 mls/hr AD PRN IV Last administered on 10/11/24at 12:20; Start 10/11/24 at 09:00; Stop 11/10/24 at 08:59 Potassium Chloride 100 ml @ 100 mls/hr AD PRN IV Last administered on 10/11/24at 19:16; Start 10/11/24 at 09:00; Stop 11/10/24 at 08:59 Potassium Phosphate 250 ml @ 42 mls/hr AD PRN IV; Start 10/11/24 at 09:00; Stop 11/10/24 at 08:59 Albumin Human 250 ml @ 0 mls/hr AD PRN IV; Start 10/11/24 at 09:00 Acetaminophen 650 mg Q4H PRN PO; Start 10/11/24 at 09:00; Stop 11/10/24 at 08:59 Insulin Human Regular 100 unit/ Sodium Chloride 100 ml @ 0 mls/hr AD IV Last administered on 10/11/24at 12:01; Start 10/11/24 at 09:00; Stop 10/13/24 at 08:59 Cefazolin Sodium 2 gm Q8H IVPB Last administered on 10/11/24at 15:04; Start 10/11/24 at 14:00; Stop 10/12/24 at 06:01 Tramadol HCl 25 mg Q6H PRN PO; Start 10/11/24 at 09:00; Stop 10/16/24 at 08:59 Tramadol HCl 50 mg Q6H PRN PO; Start 10/11/24 at 09:00; Stop 10/16/24 at 08:59 Famotidine 20 mg BID IV; Start 10/11/24 at 09:00; Stop 10/11/24 at 09:03; Status DC Sodium Bicarbonate 50 meq AD PRN IV Last administered on 10/11/24at 18:14; Start 10/11/24 at 09:00; Stop 10/14/24 at 08:59 Dextrose 50 ml AD PRN IV; Start 10/11/24 at 09:00; Stop 11/10/24 at 08:59 Glucagon 1 mg AD PRN IM; Start 10/11/24 at 09:00; Stop 11/10/24 at 08:59 Sodium Chloride 1,000 ml @ 10 mls/hr ONCE ONCE IV Last administered on 10/11/24at 10:30; Start 10/11/24 at 09:00; Stop 10/15/24 at 12:59 Famotidine 20 mg Q24H IV Last administered on 10/11/24at 12:24; Start 10/11/24 at 09:30; Stop 11/10/24 at 08:59 Vasopressin 20 units STK-MED ONCE .ROUTE; Start 10/11/24 at 09:42; Stop 10/11/24 at 09:42; Status DC Ephedrine Sulfate 50 mg STK-MED ONCE .ROUTE; Start 10/11/24 at 09:42; Stop 10/11/24 at 09:43; Status DC Protamine Sulfate 250 mg STK-MED ONCE IV; Start 10/11/24 at 09:54; Stop 10/11/24 at 09:54; Status DC Protamine Sulfate 50 mg STK-MED ONCE .ROUTE; Start 10/11/24 at 09:54; Stop 10/11/24 at 09:54; Status DC Heparin Sodium (Porcine) 10,000 unit STK-MED ONCE .ROUTE; Start 10/11/24 at 09:54; Stop 10/11/24 at 09:54; Status DC Vasopressin 40 units/Sodium Chloride 40 ml @ 0 mls/hr PROTOCOL IV; Start 10/11/24 at 11:00; Stop 11/10/24 at 10:59 Lidocaine HCl/ Dextrose 250 ml @ 0 mls/hr AD PRN IV Last administered on 10/11/24at 12:00; Start 10/11/24 at 11:00; Stop 11/10/24 at 10:59 Lidocaine HCl/ Dextrose 250 ml @ As Directed STK-MED ONCE IV; Start 10/11/24 at 10:57; Stop 10/11/24 at 10:57; Status DC Amiodarone HCl 150 mg/Dextrose 103 ml @ 618 mls/hr ONCE IV Last administered on 10/11/24at 11:57; Start 10/11/24 at 12:00; Stop 10/11/24 at 12:09; Status DC Amiodarone HCl 360 mg/Dextrose 207.2 ml @ 33.3 mls/hr AD IV Last administered on 10/11/24at 12:04; Start 10/11/24 at 12:00; Stop 11/10/24 at 11:59 Amiodarone HCl 540 mg/Dextrose 310.8 ml @ 16.7 mls/hr [id number] IV Last administered on 10/11/24at 18:20; Start 10/11/24 at 12:00; Stop 11/10/24 at 11:59 Atropine Sulfate 1 mg STK-MED ONCE IVP; Start 10/11/24 at 12:42; Stop 10/11/24 at 12:42; Status DC Iohexol 35,000 mg STK-MED ONCE IV; Start 10/11/24 at 12:42; Stop 10/11/24 at 12:42; Status DC Heparin Sodium (Porcine) 10,000 unit STK-MED ONCE .ROUTE; Start 10/11/24 at 12:42; Stop 10/11/24 at 12:42; Status DC Heparin Sodium/ Sodium Chloride 1,000 ml @ As Directed STK-MED ONCE IV; Start 10/11/24 at 12:42; Stop 10/11/24 at 12:43; Status DC Nitroglycerin 50 mg STK-MED ONCE .ROUTE; Start 10/11/24 at 12:42; Stop 10/11/24 at 12:43; Status DC Lidocaine HCl 20 ml STK-MED ONCE .ROUTE; Start 10/11/24 at 12:43; Stop 10/11/24 at 12:43; Status DC Bivalirudin 250 mg STK-MED ONCE IV; Start 10/11/24 at 13:27; Stop 10/11/24 at 13:27; Status DC Iohexol 35,000 mg STK-MED ONCE IV; Start 10/11/24 at 13:34; Stop 10/11/24 at 13:34; Status DC Clopidogrel Bisulfate 300 mg STK-MED ONCE .ROUTE; Start 10/11/24 at 13:45; Stop 10/11/24 at 13:47; Status DC Clopidogrel Bisulfate 75 mg DAILY PO; Start 10/12/24 at 09:00; Stop 11/11/24 at 08:59 Heparin Sodium/ Dextrose 250 ml @ 0 mls/hr PROTOCOL IV Last administered on 10/11/24at 16:14; Start 10/11/24 at 16:00; Stop 11/10/24 at 15:59 Dextrose 50 ml AD PRN IV; Start 10/11/24 at 15:00; Stop 11/10/24 at 14:59 Glucagon 1 mg AD PRN IM; Start 10/11/24 at 15:00; Stop 11/10/24 at 14:59 Heparin Sodium/ Dextrose 250 ml @ 0 mls/hr PROTOCOL IV; Start 10/11/24 at 16:00; Stop 10/11/24 at 15:24; Status DC GUANACO ORELLANA MD Oct 11, 2024 19:56
[2024-10-11 20:12] LABS: ABG HCO3 28.1 mmol/L (21.0-28.0); ABG OXYGEN SATURATION 97.7 % (94.0-98.0); ABG PCO2 35 mmHg (32-45); ABG PH 7.517 (7.350-7.450); CARBON MONOXIDE 0.3 % (0.5-1.5); HHb 2.3; PO2, ARTERIAL BG 133.7 mmHg (83.0-108.0); VENT MODE, BG SIMV PS10 (ROOM AIR)
--- NOTE | 2024-10-11 20:23 | EKG ---
[facility] Test Date: 2024-10-11 Test Time: 20:25:16 Pat Name: WATSON BONILLA Department: 2CV Room: 212 1 Gender: Female Re Etcher: PERLITA : 1945 Requested By: GUANACO ORELLANA Order Number: [id number] Reading MD: Sahil Zuniga Measurements Intervals [place] Rate: 71 P: 45 NE: 126 QRS: 58 QRSD: 72 T: 79 QT: 404 QTc: 439 Interpretive Statements Normal sinus rhythm Septal infarct , age undetermined T wave abnormality, consider anterior ischemia Compared to ECG 10/11/2024 20:23:05 T-wave abnormality now present Possible ischemia now present Myocardial infarct finding still present Electronically Signed On 10-12-2024 14:17:26 MILLWORK ESTIMATOR by Sahil Zuniga Please click the below link to view image of tracing.
--- NOTE | 2024-10-11 21:01 | PN ---
SUBJECTIVE: A 79-year-old lady who underwent a CABG x 3 that upon soon after arrival to the ICU after being relatively stable and then on transport, developed ST segment elevation. The patient was placed on nitroglycerin and Edwin-Synephrine now to try to treat for air. She was hemodynamically stable. ____ the patient has depressed ventricular function and the ST segments were worrisome, the decision is to proceed to take the patient to the cardiac catheterization laboratory. Of note to say that the LAD was diffusely diseased small vessel that had LATHA 1 flow. A 1.5-mm soft shunt was unable to be placed at the time of the surgery proximally. Therefore, I am not sure that she has got good targets to take him back to the operating theater and after discussion with Cardiology, the decision is to proceed with cardiac catheterization and possibly opening the hoh lesion on the LAD proximally. 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 The hoh LAD is opened with a stent with good flow in the LAD down to the apex. The LAD is a small artery and the ST segment ____. The patient is transferred back to the ICU in stable condition. TID: [id number] RECEIPT: [id number]
[2024-10-11 21:25] LABS: ABG BASE EXCESS 3.9 mmol/L (-2.0-3.0); ABG HCO3 26.9 mmol/L (21.0-28.0); ABG PCO2 34 mmHg (32-45); ABG PH 7.513 (7.350-7.450); CARBON MONOXIDE 0.3 % (0.5-1.5); DEVICE COMMENT JULIA RN, AL; PO2, ARTERIAL BG 103.8 mmHg (83.0-108.0); VENT MODE, BG SIMV PS 10 (ROOM AIR)
[2024-10-11] MEDS: atorVAStatin 20 MG TABLET PO SCH (21:30)
[2024-10-11 22:27] LABS: ABG BASE EXCESS 3.9 mmol/L (-2.0-3.0); ABG HCO3 26.9 mmol/L (21.0-28.0); ABG OXYGEN SATURATION 96.9 % (94.0-98.0); ABG PCO2 34 mmHg (32-45); ABG PH 7.514 (7.350-7.450); CARBON MONOXIDE 0.3 % (0.5-1.5); DEVICE COMMENT JULIA RN, AL; HHb 3.1; PO2, ARTERIAL BG 101.2 mmHg (83.0-108.0); VENT MODE, BG SIMV PS 10 (ROOM AIR)
--- NOTE | 2024-10-11 22:40 | NUR ---
Late entry -SUMMARY PT S/P CABG X2 WITH DR. GREGG, S/P ST ELEVATION AFTER SURGERY WITH AFIB RVR, PCI INTERVENTION DONE BY DR TAYLOR STENT TO LAD - ST ELEVATION IMPROVED EKG, ON PRESSOR SUPPORT EPI, LEVO, AMIO, LIDOCAINE, NITRO, INSULIN AND AMICAR. CONT VENTED NOT SEDATED, ALERT AND ORIENTED FOLLOWING COMMANDS, PERRLA ON BILATERAL PUPILS, STRONG GAG REFLEX, VITALS NORMALIZING AFTER COMPLICATIONS MAP OF 65 , NORMAL SINUS RHYTHM, RIGHT GROIN BALLOON PUMP POSITIONAL, AND LEFT GROIN [address] AFTER PCI. NO HEMATOMA - NO BLEEDING - SOFT DRESSING INTACT, PULSES BILATERAL LOWER EXT BY DOPPLER, WARM AND NO DISCOLORATION NOTED. CHEST TUBE X2 PLEURAL AND MEDIASTINAL IN PLACE/ PATENT DRAINING MINIMUM, ON HEPARIN DRIP AFTER LAD OCCLUDED POST CABG, NO BLEEDING NOTED HGB STABLE 9.3, F/C [address] DRAINING CLEAR YELLOW URINE 30-40 ML /HR, A LINE IN PLACE GOOD WAVE FORM, INCISION TO CHEST INTACT WITH MINIMAL DRAINAGE, PACING WIRES IN PLACE ON STANDBY PACER, NO PAIN VOICED ON IV TYLENOL SCHEDULED FOR PAIN MANAGEMENT. DR. ZEE CARDIO PASSED BY UPDATED PT STATUS EKG ORDER AND SENT TO HIM NO ORDERS. WILL CONT TO MONITOR.
[2024-10-11] MEDS: ALBUMIN (HUMAN) 5% 250 ML IV PRN (23:20)
[2024-10-11 23:41] LABS: ABG BASE EXCESS 3.6 mmol/L (-2.0-3.0); ABG HCO3 26.9 mmol/L (21.0-28.0); ABG OXYGEN SATURATION 96.8 % (94.0-98.0); ABG PCO2 35 mmHg (32-45); ABG PH 7.503 (7.350-7.450); CARBON MONOXIDE 0.3 % (0.5-1.5); HHb 3.2; PO2, ARTERIAL BG 103.3 mmHg (83.0-108.0); VENT MODE, BG SIMV (ROOM AIR)
[2024-10-12] VITALS (106 sets, daily range): BP systolic 73–206; BP diastolic 24–108; PULSE 39–92; RESP 5–39; TEMP 97.5–98.6; O2SAT 97–100
--- NOTE | 2024-10-12 00:12 | NUR ---
2347 PM - PT FOLLOWING COMMANDS ALERT ON MINIMUM VENT SETTING PEEP 4, FIO2 30%, RATE 4 AND TV 350 ML NIF -20 AND VITAL CAPACITY 850 - ABG WITHIN ADEQUATE PARAMETERS TO EXTUBATE PT. PH 7.5, CO2 35.0, P02 103.3 BICARB 26.9. EXTUBATED AT 2147 TOLERATED WELL, ORAL CARE PROVIDED. AEROSOL MASK 10 LITERS 40% TOLERATING WELL 97% ORAL SUCTION PRN MILD TO MODERATE SECRETIONS. NO PAIN VOICED CONT TO MONITOR
[2024-10-12 01:06] LABS: ABG BASE EXCESS 3.4 mmol/L (-2.0-3.0); ABG HCO3 27.5 mmol/L (21.0-28.0); ABG OXYGEN SATURATION 95.9 % (94.0-98.0); ABG PCO2 39 mmHg (32-45); ABG PH 7.461 (7.350-7.450); CARBON MONOXIDE 0.2 % (0.5-1.5); DEVICE COMMENT JULIA RN, AL; HHb 4.1; PO2, ARTERIAL BG 90.5 mmHg (83.0-108.0); VENT MODE, BG COOL (ROOM AIR)
[2024-10-12] MEDS: furoSEMIDE 20MG VIAL ONE (02:20)
[2024-10-12] MEDS: furoSEMIDE 20MG VIAL IV ONE (03:31)
[2024-10-12 04:25] LABS: BASOPHILS # (AUTO) 0.03 K/uL (0.00-0.20); BASOPHILS % (AUTO) 0.2 % (0.0-5.0); HEMATOCRIT 22.6 % (36-48); IMMATURE GRANULOCYTE ABSOLUTE 0.08 K/uL (0-1); LYMPHOCYTES # (AUTO) 1.6 K/uL (1.0-4.8); LYMPHOCYTES % (AUTO) 8.6 % (21.0-51.0); MEAN CORPUSCULAR HGB CONC 33.6 g/dL (32.0-36.0); MEAN CORPUSCULAR VOLUME 92.2 fL (79-99); MONOCYTES # (AUTO) 1.5 K/uL (0.1-1.0); MONOCYTES % (AUTO) 8.1 % (3.0-13.0); NEUTROPHILS # (AUTO) 15.7 K/uL (1.8-7.7); NEUTROPHILS % (AUTO) 82.7 % (40.0-77.0); PLATELET COUNT (AUTO) 206 K/uL (130-400); RED BLOOD CELL COUNT(AUTO) 2.45 MIL/uL (4.00-5.50); RED CELL DISTRIBUTION WIDTH 14.1 % (11.0-15.5)
[2024-10-12 04:29] LABS: INR 1.24 (0.85-1.15); PROTHROMBIN TIME 13.6 SEC (9.6-11.6)
[2024-10-12 04:36] LABS: CREATININE 1.2 mg/dL (0.5-1.0); PHOSPHORUS 3.5 mg/dL (2.5-4.9); POTASSIUM 4.5 mmol/L (3.5-5.1)
[2024-10-12 05:23] LABS: PARTIAL THROMBOPLASTIN TIME > 139.0 SEC (26.3-35.5)
--- NOTE | 2024-10-12 06:47 | NUR ---
0100 - reported to dr. العراقي pt having nearly 30 ml urine output compared to morning shift urine has decreased, called back 0130 a.m. evaluated pt status, drips pt cont on levo, amio, epi, lidocaine, nitro with b/p softs 80s -90s and new order lasix 20 mg iv now and transfuse 1 unit if hgb less than 8. noted carried out. 0530 -Morning labs back made dr. العراقي aware hgb dropped to 7.6 already transfusing 1 unit prbc tolerating well. she has also been on heparin ptt in a.m. greater than 139 held heparin left message to dr. العراقي about 100 ml contonous output on chest tubes and high ptt, pending call back , as per protocol hold 60 min and decrease by 2 units. cont to monitor pt. b/p improving after blood. no pain voiced cont to monitor
[2024-10-12] MEDS: ondanSETRON 4MG INJ IV PRN (08:05)
[2024-10-12] MEDS: NOREPINEPHRIN 8MG/250ML NS 250 ML IV PRN (08:08)
[2024-10-12] MEDS: furoSEMIDE 20MG VIAL IV SCH (08:10)
[2024-10-12] MEDS: doCUSate SODIUM 100 MG CAP PO SCH (08:42)
[2024-10-12] MEDS: cloPIDOgrel 75MG TAB PO SCH (08:42)
--- NOTE | 2024-10-12 08:55 | HMCIMG ---
Exam Type: CHEST 1VW Clinical Information: s/p CABG Comparison: None Findings: Pulmonary pattern is as before. No worrisome interval changes have taken place. Impression: Stable exam.
[2024-10-12 10:00] LABS: HEMATOCRIT 29.4 % (36-48)
--- NOTE | 2024-10-12 10:25 | NUR ---
PT eval on hold. Pt on balloon pump. PT team to follow-up.
[2024-10-12 13:50] LABS: ABG HCO3 26.9 mmol/L (21.0-28.0); ABG OXYGEN SATURATION 96.7 % (94.0-98.0); ABG PCO2 34 mmHg (32-45); ABG PH 7.519 (7.350-7.450); CARBON MONOXIDE 0.3 % (0.5-1.5); HHb 3.3; PO2, ARTERIAL BG 92.5 mmHg (83.0-108.0); VENT MODE, BG 2 L NC (ROOM AIR)
--- NOTE | 2024-10-12 14:00 | PN ---
"[facility] PROGRESS NOTE Date Patient Seen: Oct 12, 2024 Time of Visit: 14:00 Supervising Physician: Dr. Lj Perez Primary Care Physician: Maine Euceda MD Outpatient Specialists: Inpatient Consults: CV Surgery Dr Licona, Dr Ravi MD, BIS Attending physician|: Kali Carroll MD PROBLEM LIST: NSTEMI, POA, Multivessel CAD status post CABG x2 on 10/11/24 (Dr Licona) Cardiomyopathy with EF of 35-40% POA Postoperative AFib with RVR on amiodarone drip and lidocaine drip CKD stage IIIA, POA hyperglycemia in the presence of type 2 diabetes mellitus, POA Hypertension Hypothyroidism Raynaud's phenomenon GI bleed resolved INTERVAL HISTORY: 08/11/2025: At the time of my evaluation, the patient was lying in bed. She is awake, alert and verbally interactive with adequate responses. The patient was on nasal cannula support at 2 liters/minute. Chest tube remains in place with increased amount bloody output. IABP remains in place and a 1:1. On the monitor, the patient with a map of 62 and a heart rate of 66. The patient remains on Levophed drip, nitro, amiodarone, insulin, heparin, epinephrine and lidocaine drip. The patient is feeding orally and a heart healthy diet. Ch emistry panel today showed a sodium of 149, potassium of 4.5, chloride 112, CO2 of 32, BUN 16, creatinine of 1.2 and a blood glucose of 138. The patient is voiding with a Rosa catheter in place. Per the staff nurse, the patient received transfusion of PRBCs due to a drop in H&H of 7.6/22.6. Currently, CBC showing a WBC of 19.0, hemoglobin 7.6, hematocrit of 22.6 and a platelet count of 206. PT of 13.6, INR 1.24 and a PTT of 139.0. No other complaint. REVIEW OF SYSTEMS: 12 point ROS reviewed with patient. Pertinent positives mentioned above. Otherwise negative. PHYSICAL EXAM: GENERAL: Intubated coming off sedation HEENT: Sclera non icteric, moist mucosa NECK: Supple, no JVD, trachea midline Rt IJ LUNGS: coarse crackles carlos breath sounds bilaterally. No wheezes HEART: Regular rate and rhythm. Normal S1 and S2, without murmurs , epicardial lead for pacemaker in place , dressing to midsternal area clean dry and intact. Chest tube ABD: Abdomen soft, nontender. Bowel sounds present EXT: No clubbing cyanosis or edema, rt femoral site of IABP bilateral pedal pulses + 1 NEURO: Postoperative still sedated. Vital Signs (last 8hr) Date Time Temp Pulse Resp B/P (MAP) Pulse Ox O2 Delivery O2 Flow Rate FiO2 10/12/24 13:15 72 152/41 (78) 99 128/45 (72) 10/12/24 13:00 73 18 138/49 (78) 98 110/41 (64) 10/12/24 12:30 70 20 144/48 (80) 98 111/39 (63) 10/12/24 12:15 70 16 139/47 (77) 98 10/12/24 12:00 71 10 143/48 (79) 99 10/12/24 12:00 98 Nasal Cannula* 2 28 10/12/24 12:00 98.2 98 Nasal Cannula 2.0 10/12/24 11:45 71 25 158/52 (87) 98 117/43 (67) 10/12/24 11:30 68 12 140/42 (74) 99 10/12/24 11:15 65 10 132/32 (65) 99 111/46 (67) 10/12/24 11:00 66 14 130/28 (62) 98 103/42 (62) 10/12/24 10:45 64 15 120/24 (56) 99 10/12/24 10:30 65 12 150/50 (83) 99 10/12/24 10:16 64 13 145/42 (76) 98 116/44 (68) 10/12/24 10:15 65 16 150/47 (81) 98 10/12/24 10:00 65 14 150/49 (82) 98 10/12/24 09:45 64 16 154/48 (83) 97 123/46 (71) 10/12/24 09:30 64 10 147/51 (83) 98 115/48 (70) 10/12/24 09:15 65 12 141/50 (80) 99 132/50 (77) 10/12/24 09:00 63 13 181/64 (103) 99 147/82 (103) 10/12/24 08:45 63 15 196/68 (110) 97 151/80 (103) 10/12/24 08:33 98.6 10/12/24 08:30 64 12 188/61 (103) 99 138/41 (73) 10/12/24 08:15 65 10 202/66 (111) 98 154/58 (90) 10/12/24 08:08 84/50 10/12/24 08:00 62 15 197/65 (109) 98 40 152/73 (99) 10/12/24 08:00 100 Aerosol Mask+ 40 10/12/24 07:45 65 11 203/85 (124) 97 162/89 (113) 10/12/24 07:30 66 17 201/82 (121) 97 163/108 (126) 10/12/24 07:22 65 18 Aerosol, Face Mask 40 10/12/24 07:15 66 12 205/82 (123) 98 10/12/24 07:01 66 16 206/83 (124) 98 164/105 (124) 10/12/24 07:00 66 16 206/82 (123) 98 10/12/24 06:46 63 16 196/73 (114) 98 165/98 (120) 10/12/24 06:45 64 16 200/74 (116) 98 10/12/24 06:31 63 16 192/69 (110) 99 158/82 (107) 10/12/24 06:30 63 16 190/66 (107) 99 10/12/24 06:15 65 16 192/68 (109) 98 162/78 (106) LABS: Hematology Labs: Test 10/12/24 09:39 10/12/24 04:02 Range/Units Hemoglobin 9.7 #L 12.0-16.0 g/dL Hematocrit 29.4 #L 36-48 % White Blood Count 19.0 #H 4.8-10.8 K/uL Red Blood Count 2.45 L 4.00-5.50 MIL/uL Mean Corpuscular Volume 92.2 79-99 fL Mean Corpuscular Hemoglobin 31.0 27.0-33.0 pg Mean Corpuscular Hemoglobin Concent 33.6 32.0-36.0 g/dL Red Cell Distribution Width 14.1 11.0-15.5 % Platelet Count 206 130-400 K/uL Mean Platelet Volume 10.4 7.5-10.5 fL Immature Granulocyte % (Auto) 0.4 0-1 % Neutrophils (%) (Auto) 82.7 H 40.0-77.0 % Lymphocytes (%) (Auto) 8.6 L 21.0-51.0 % Monocytes (%) (Auto) 8.1 3.0-13.0 % Eosinophils (%) (Auto) 0.0 0.0-8.0 % Basophils (%) (Auto) 0.2 0.0-5.0 % Neutrophils # (Auto) 15.7 H 1.8-7.7 K/uL Lymphocytes # (Auto) 1.6 1.0-4.8 K/uL Monocytes # (Auto) 1.5 H 0.1-1.0 K/uL Eosinophils # (Auto) 0.00 0.00-0.70 K/uL Basophils # (Auto) 0.03 0.00-0.20 K/uL Absolute Immature Granulocyte (auto 0.08 0-1 K/uL Nucleated Red Blood Cells 0.0 0.0-0.19 % White Cell Morphology Comment See comments Chemistry Labs: Test 10/12/24 12:08 10/12/24 04:02 10/11/24 03:24 10/10/24 16:09 Range/Units Whole Blood Glucose 93 70-110 MG/DL Sodium Level 149 H 136-145 mmol/L Potassium Level 4.5 3.5-5.1 mmol/L Chloride Level 112 H 101-111 mmol/L Carbon Dioxide Level 32 21-32 mmol/L Blood Urea Nitrogen 16 7-18 mg/dL Creatinine 1.2 H 0.5-1.0 mg/dL Glomerular Filtration Rate Calc 46 >90 mL/min Random Glucose 138 H 70-105 mg/dL Total Calcium 8.8 8.5-10.1 mg/dL Ionized Calcium 1.12 L 1.16-1.32 MMOL/L Phosphorus Level 3.5 2.5-4.9 mg/dL Magnesium Level 2.00 1.80-2.40 mg/dL Total Bilirubin 0.3 0.2-1.0 mg/dL Aspartate Amino Transf (AST/SGOT) 37 10-37 U/L Alanine Aminotransferase (ALT/SGPT) 37 12-78 U/L Alkaline Phosphatase 64 50-136 U/L B-Type Natriuretic Peptide 821 H 0-100 pg/mL Total Protein 6.5 6.0-8.3 g/dL Albumin 3.0 L 3.5-5.0 g/dL Triglycerides Level 134 30-200 mg/dL Cholesterol Level 116 <200 mg/dL LDL Cholesterol 61 0-99 mg/dL HDL Cholesterol 43 35-85 mg/dL Bedside Glucose Comment Notified Nurse Coagulation Labs: Test 10/12/24 09:39 10/12/24 04:02 Range/Units Activated Partial Thromboplast Time 65.8 #H 26.3-35.5 SEC Prothrombin Time 13.6 H 9.6-11.6 SEC Prothromb Time International Ratio 1.24 H 0.85-1.15 DIAGNOSTICS / RADIOLOGY RESULTS: [ ] PLAN Follow CT surgeon recommendations Follow cardiology recommendations Multimodal pain management Monitoring H&H Monitor chest tube output Chest x-ray in the morning Start SBT's as tolerated IABP managed by CV/Cardiology Monitor ABGs Transfuse if absolutely necessary to keep hemoglobin above 8 Maintain O2 sats greater than 92% Incentive spirometry once extubated Glycemic control with goal of 80-180 Referral for cardiac rehabilitation Speech to eval once patient is extubated monitor electrolytes: K Goal of 4 Magnesium goal of 2 Replace accordingly 10/12/2024: For now, we are going to continue current management for the patient. She will continue on nasal cannula and we will adjust as necessary. We will follow CTS recommendations regarding the chest tube and IABP. The patient will continue on multiple drips to include lidocaine, heparin, insulin, amiodarone, epinephrine, Levophed and nitro. These will be titrated per the CTS recommendation. We will monitor the oral intake and supplement as necessary. We will monitor the urinary output and follow the I's and O's. We will also monitor the H&H and we will continue to transfuse as necessary. We will replace electrolyte derangements per the protocol. We will monitor the patient's progress and response to management. Further orders per attending MD and hospital course. NEURO: Minimize central acting medications as possible. Fall Precautions. Well lighted room through the day and minimize interruptions through the night to prevent acute delirium. PULMONARY: Supplemental 02 as needed Titrate Fio2 to keep Spo2 > or = 90% DuoNebs and CPT as needed IS hourly while awake for pulmonary hygiene Out of bed to chair as tolerated CARDIOVASCULAR: Follow hemodynamics. Titrate vasopressor to keep MAP >65 or systolic blood pressure >95mmHg DIPS: Nitroglycerin Amiodarone Lidocaine Epinephrine Insulin LINES: Central line Chest tubes Arterial line IABP GI & NUTRITION: Continue nutritional support Aspirations precautions Prokinetic agents and laxatives as needed KIDNEYS & ELECTROLYTES: Strict monitoring of intake and output Daily weights Avoid nephrotoxic agents Monitor electrolytes and replace as needed Goal urine output of 30mL/hr or 0.5mL/kg/hr Urine output: [ ] Fluid Balance: [ ] ENDOCRINE: Maintain blood glucose between 100-180 at all times. Insulin sliding scale for blood glucose management INFECTIOUS DISEASE: Trend temperature. Canales-culture if febrile. Micro: [ ] Antibiotics: [ ] Ancef x3 per CV protocol HEMATOLOGY & COAGULATION: Monitor H&H. Keep Hgb > 7 Transfuse 1 unit of PRBC for Hgb < 7 Transfuse 1 pack of platelets of platelets < 20, 000 Watch for any signs and symptoms of bleeding SKIN: Pressure ulcer prevention per facility protocol Rehab: PT/OT Prophylaxis: GI: Pepcid DVT: Ernst brown Code Status: Full Resuscitation Disposition: ICU Other: Total patient care time exceeds 60 minutes excluding all procedures. Case was discussed and seen with my supervising physician. The above plan was formulated and agreed upon. ROBBY FOX NP Oct 12, 2024 14:00"
--- NOTE | 2024-10-12 15:49 | PN ---
[facility] PROGRESS NOTE Date of Service: Oct 12, 2024 Time of Service: 15:48 SUBJECTIVE: Ms. Mac is a 79-year-old female that was seen and examined today on 10/05/2024. Patient is a good historian and personal health. Patient states that she came to the emergency department with a chief complaint of bilateral chest wall pain closer to the axilla and pain also radiates to the back. Onset was 9:30 a.m.. Character is described as throbbing. Symptoms are aggravated with palpation and movement. Symptoms are not alleviated with a chiropractic adjustment in fact symptoms became worse after a chiropractic adjustment. There was no alleviating factors Duration of pain is on and off. Patient denies any associated shortness of breath, nausea, vomiting, headache, dizziness. Today in the emergency department CBC unremarkable, troponin 378 (high sensitivity), creatinine 1.1, glucose 208 mg/dL, GFR 51, no urinalysis has been collected or sent to lab. Emergency room initial impression and EKG is that there is new T-wave inversions signifying a change from previous EKGs one week ago at a prior emergency room visit. For this reason emergency room physician recommended patient be admitted with a diagnosis of chest pain. 10/06/24 patient was seen and examined in the ER. She reports that she was doing much better. She denies any chest pain. And she tells me that she came in because she had back pain radiating to bilateral shoulders. She does go to chiropractor to get this resolved but this time it was more persistent 10/07/2024 - patient is seen at bedside in the room ER 5. Patient denies any active chest pain, shortness of breath, nausea, vomiting. [place] [id number] and is coming down with treatment, patient is planned for drop crew laborer. Patient feels anxious about the upcoming drop crew laborer procedure and question regarding the procedures, all questions were answered. Patient informed about her extremities getting cold and color change to purplish red and about her joint problems and trouble of food getting stuck in the esophagus after swallowing , immunology workup is planned to rule out limited scleroderma . Patient is hemodynamically stable with temperature 98.6, pulse 77, respiratory rate 17, blood pressure 146/77, pulse oximetry 99% on room air. Patient's labs shows WBC 10.4, hemoglobin 13.5, chemistries show sodium 141, potassium 4.3, creatinine 0.8, BUN 14. Patient is currently on metoprolol, pantoprazole, aspirin, heparin, nitroglycerin. Patient will be followed rajiv kuldip, we will follow Cardiology recommendations. 10/08/2024 - patient is seen in room 201, patient denies any symptoms, patient was taken to the drop crew laborer yesterday in the results are as follows SELECTIVE CORONARY ANGIOGRAPHY: 1. Left main: The left main bifurcates into the left anterior descending and circumflex coronary artery. Distal Left main with 50% stenosis 2. Left anterior descending: The left anterior descending coronary artery gives rise to diagonal(s) and terminates as the apical recurrent branch. Prox LAD with 90% disease 3. Circumflex: The circumflex coronary artery is noted to provide obtuse marginal(s). Prox Cx with 95% disease 4. Right coronary artery: The right coronary artery is dominant and gives PDA and NIKITA. Prox RCA with 50% disease 5. Left ventricular end-diastolic pressure is elevated. There was no gradient noted upon pullback. Cardiothoracic surgeon is consulted and Dr. Licona has ordered an ultrasound carotid has a preoperative procedure. patient will be continued on medical management until the surgery . Patient is currently hemodynamically stable with temperature 98.2, pulse 81, blood pressure 122/80, respiratory rate 18, saturating at 94% on room air. Patient's labs shows WBC 10.7, hemoglobin 11.9 and chemistries show sodium 142, potassium 3.7, creatinine 0.7. Awaiting further instructions from cardio thoracic surgeon. 10/09/2024 - patient is seen at bedside in room 201. Patient is currently asymptomatic but complained of mild pain yesterday night which is relieved with nitro patch. Patient had black tarry stool episode yesterday and the heparin is put on hold currently she informed that this morning she had a normal colored stool. Patient has been seen by Dr. Licona and he informed about the surgery but has not scheduled it yet. 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 Patient's labs shows WBC 9.6, hemoglobin 11.3 And chemistries show sodium 138, potassium 3.6, creatinine 0.8, BUN 24. Patient will be followed closely. 10/10/2024 - patient is seen at bedside in room 201. Patient is complaining of mild pain in the back which is reproducible on palpation and also mentioned about mild chest pain which presents on bending forward, pain is relieved by sitting straight. Patient requested medication for the back pain and we ordered Flexeril and Ultram p.r.n. heparin is currently on hold troponin is trending down. Heparin to be continued if troponin trending up and will be held with the patient has black tarry stools again. Cardiac thoracic surgery might plan to surgery on the weekend. Patient's vitals temperature 98.1, pulse 60, respiratory rate 20, blood pressure 125/59, saturating at 99% on room air. Patient's labs shows WBC 9.6, hemoglobin 10.7 and chemistries show sodium 139, potassium 4.1, creatinine 0.8, BUN 24 and troponin has trended down from 2346 to 1280. We will be following Cardiology recommendations. We will be monitoring the case closely. 10/11/2024 - patient is seen at bedside in room 212. Patient is seen post CABG, intubated. Cardiology anesthesia informed about the procedure done and about placing 2 grafts for the stenosed vessels - LAD, left circumflex. Also informed about recovery of some heart function due to the return of perfusion . Patient had AFib after the surgery and she was started on amiodarone and lidocaine drip. Patient also had IABP placed to assist with EF. Patient is on other drips like nitro, epinephrine, ventilation settings are respiratory rate 14 , tidal volume 450, FiO2 100%, peep of 5 . Patient currently return to sinus rhythm after the amiodarone bolus. Patient's white count elevated to 29.6 and chemistries show sodium 148, potassium 3.3, magnesium 1.2 , it will be replaced. Patient will be monitored closely. 10/12/24 patient was seen and examined. Case discussed with the RN. Patient was more stable today heart rate of [id number] there may be able to switch amiodarone to p.o.. On a lidocaine infusion at this point REVIEW OF SYSTEMS CONSTITUTIONAL: Denies fevers, chills, or night sweats. No unintentional weight loss reported. NEUROLOGICAL: Denies headache, amaurosis fugax, motor weakness, sensory deficit, vertigo/spinning sensation, gait abnormalities, or tremors. ENT: No hearing loss, otalgia, otorrhea, rhinitis, rhinorrhea, hoarseness, or sore throat. CARDIOVASCULAR: Denies any exertional angina, dyspnea on exertion, orthopnea, paroxysmal nocturnal dyspnea, palpitations, life-threatening arrhythmias, claudication. PULMONARY: Denies any shortness of breath, cough, phlegm/sputum, hemoptysis, pleuritic chest pain. SLEEP: Denies morning headaches, daytime somnolence or napping. Denies difficulty falling asleep, staying asleep, waking from sleep. Denies knowledge of snoring. GASTROINTESTINAL: Denies any type of dysphagia to either liquids or solids. Denies nausea, vomiting, pyrosis, early satiety, abdominal pain, diarrhea, constipation, or changes in stool consistency or caliber. Denies coffee-ground emesis, hematemesis, hematochezia, or melanotic stools. GENITOURINARY: Denies frequency, urgency, nocturia, hematuria or incontinence (Storage/Irritative symptoms.) Low urinary stream, straining to void, urinary intermittency or hesitancy, splitting of the voiding stream, terminal dribbling. ENDOCRINOLOGIC: Denies polyuria, polydipsia, polyphagia or heat/cold intolerances. HEMATOLOGIC: Denies thrombophilia/previous clots, or coagulopathy/bleeding disorders. ONCOLOGIC: Denies personal history of malignancy. DERMATOLOGIC: Denies rashes or pruritus. PSYCHIATRIC: Denies any suicidal or homicidal ideation. Denies hallucinations. PHYSICAL EXAM GENERAL APPEARANCE: The patient is awake, alert, and oriented, in no acute cardiopulmonary distress. NEUROLOGICAL: Cranial nerves II-XII grossly intact. Motor is 5/5 in bilateral upper and lower extremities proximal to distal. No sensory deficits. HEENT: Face is symmetric. Pupils are equal and reactive. Extraocular movements are intact. NECK: Supple. No JVD. No thyromegaly. No submental, submandibular, pre- /postauricular, occipital or supraclavicular lymphadenopathy. CHEST: Normal chest expansion. No Telemetry. LUNGS: Absence of any rales, rhonchi or any wheezing. CARDIOVASCULAR: Regular. S1 and S2 normal. No appreciable rubs, murmurs or gallops. ABDOMEN: Soft, nontender, and nondistended. There is no rebound, voluntary guarding, or rigidity. : Deferred. No Rosa. EXTREMITIES: Non-edematous and not cyanotic. No clubbing. Good capillary refill. SKIN: No skin breakdown. Vital Signs (last 8hr) Date Time Temp Pulse Resp B/P (MAP) Pulse Ox O2 Delivery O2 Flow Rate FiO2 10/12/24 15:30 73 16 148/36 (73) 99 130/88 (102) 10/12/24 15:15 74 19 154/37 (76) 98 10/12/24 14:46 73 13 160/38 (78) 98 129/45 (73) 10/12/24 14:45 73 16 157/37 (77) 98 10/12/24 14:30 72 154/36 (75) 99 131/42 (71) 10/12/24 14:15 71 21 152/34 (73) 99 10/12/24 14:00 71 14 165/37 (79) 99 28 137/48 (77) 10/12/24 13:45 71 20 164/37 (79) 99 10/12/24 13:30 73 14 147/41 (76) 98 10/12/24 13:15 72 152/41 (78) 99 128/45 (72) 10/12/24 13:00 73 18 138/49 (78) 98 110/41 (64) 10/12/24 12:30 70 20 144/48 (80) 98 111/39 (63) 10/12/24 12:15 70 16 139/47 (77) 98 10/12/24 12:00 71 10 143/48 (79) 99 10/12/24 12:00 98 Nasal Cannula* 2 28 10/12/24 12:00 98.2 98 Nasal Cannula 2.0 10/12/24 11:45 71 25 158/52 (87) 98 117/43 (67) 10/12/24 11:30 68 12 140/42 (74) 99 10/12/24 11:15 65 10 132/32 (65) 99 111/46 (67) 10/12/24 11:00 66 14 130/28 (62) 98 103/42 (62) 10/12/24 10:45 64 15 120/24 (56) 99 10/12/24 10:30 65 12 150/50 (83) 99 10/12/24 10:16 64 13 145/42 (76) 98 116/44 (68) 10/12/24 10:15 65 16 150/47 (81) 98 10/12/24 10:00 65 14 150/49 (82) 98 10/12/24 09:45 64 16 154/48 (83) 97 123/46 (71) 10/12/24 09:30 64 10 147/51 (83) 98 115/48 (70) 10/12/24 09:15 65 12 141/50 (80) 99 132/50 (77) 10/12/24 09:00 63 13 181/64 (103) 99 147/82 (103) 10/12/24 08:45 63 15 196/68 (110) 97 151/80 (103) 10/12/24 08:33 98.6 10/12/24 08:30 64 12 188/61 (103) 99 138/41 (73) 10/12/24 08:15 65 10 202/66 (111) 98 154/58 (90) 10/12/24 08:08 84/50 10/12/24 08:00 62 15 197/65 (109) 98 40 152/73 (99) 10/12/24 08:00 100 Aerosol Mask+ 40 LABS: Laboratory: Test 10/12/24 13:48 10/12/24 12:08 10/12/24 09:39 10/12/24 04:02 Range/Units Blood Gas Specimen Type Arterial Arterial Blood pH 7.519 H 7.350-7.450 Arterial Blood Partial Pressure CO2 34 32-45 mmHg Arterial Blood Partial Pressure O2 92.5 83.0-108.0 mmHg Arterial Blood HCO3 26.9 21.0-28.0 mmol/L Arterial Blood Oxygen Saturation 96.7 94.0-98.0 % Arterial Blood Base Excess 4.0 H -2.0-3.0 mmol/L Hemoglobin (Blood Gas) 9.5 L 12.0-16.0 g/dL Sodium (Blood Gas) 142 136-145 MMOL/L Bedside Potassium (Blood Gas) 4.5 3.4-4.5 MMOL/L Bedside Chloride (Blood Gas) 108 H 98-107 MMOL/L Bedside Glucose (Blood Gas) 123 H 65-95 MG/DL Bedside Ionized Calcium (Blood Gas) 1.13 L 1.15-1.33 MMOL/L Bedside Lactic Acid (Blood Gas) 1.86 H 0.36-0.75 MMOL/L Blood Gas Temperature 37.0 35.5-37.0 CELSIUS Blood Gas Flow-by 2.00 0.00-15.00 L/min Blood Gas Vent Mode 2 L NC ROOM AIR FiO2 28.0 % Blood Gas Specimen Comment SELENA DELEON RN Whole Blood Glucose 93 70-110 MG/DL Hemoglobin 9.7 #L 12.0-16.0 g/dL Hematocrit 29.4 #L 36-48 % Activated Partial Thromboplast Time 65.8 #H 26.3-35.5 SEC White Blood Count 19.0 #H 4.8-10.8 K/uL Red Blood Count 2.45 L 4.00-5.50 MIL/uL Mean Corpuscular Volume 92.2 79-99 fL Mean Corpuscular Hemoglobin 31.0 27.0-33.0 pg Mean Corpuscular Hemoglobin Concent 33.6 32.0-36.0 g/dL Red Cell Distribution Width 14.1 11.0-15.5 % Platelet Count 206 130-400 K/uL Mean Platelet Volume 10.4 7.5-10.5 fL Immature Granulocyte % (Auto) 0.4 0-1 % Neutrophils (%) (Auto) 82.7 H 40.0-77.0 % Lymphocytes (%) (Auto) 8.6 L 21.0-51.0 % Monocytes (%) (Auto) 8.1 3.0-13.0 % Eosinophils (%) (Auto) 0.0 0.0-8.0 % Basophils (%) (Auto) 0.2 0.0-5.0 % Neutrophils # (Auto) 15.7 H 1.8-7.7 K/uL Lymphocytes # (Auto) 1.6 1.0-4.8 K/uL Monocytes # (Auto) 1.5 H 0.1-1.0 K/uL Eosinophils # (Auto) 0.00 0.00-0.70 K/uL Basophils # (Auto) 0.03 0.00-0.20 K/uL Absolute Immature Granulocyte (auto 0.08 0-1 K/uL Nucleated Red Blood Cells 0.0 0.0-0.19 % White Cell Morphology Comment See comments Prothrombin Time 13.6 H 9.6-11.6 SEC Prothromb Time International Ratio 1.24 H 0.85-1.15 Sodium Level 149 H 136-145 mmol/L Potassium Level 4.5 3.5-5.1 mmol/L Chloride Level 112 H 101-111 mmol/L Carbon Dioxide Level 32 21-32 mmol/L Blood Urea Nitrogen 16 7-18 mg/dL Creatinine 1.2 H 0.5-1.0 mg/dL Glomerular Filtration Rate Calc 46 >90 mL/min Random Glucose 138 H 70-105 mg/dL Total Calcium 8.8 8.5-10.1 mg/dL Ionized Calcium 1.12 L 1.16-1.32 MMOL/L Phosphorus Level 3.5 2.5-4.9 mg/dL Magnesium Level 2.00 1.80-2.40 mg/dL Test 10/11/24 23:39 10/11/24 03:24 10/10/24 16:09 Range/Units Blood Gas Respiration Rate 4.0 min. Blood Gas Tidal Volume 450 ml Blood Gas PEEP 5 cm H2O Total Bilirubin 0.3 0.2-1.0 mg/dL Aspartate Amino Transf (AST/SGOT) 37 10-37 U/L Alanine Aminotransferase (ALT/SGPT) 37 12-78 U/L Alkaline Phosphatase 64 50-136 U/L B-Type Natriuretic Peptide 821 H 0-100 pg/mL Total Protein 6.5 6.0-8.3 g/dL Albumin 3.0 L 3.5-5.0 g/dL Triglycerides Level 134 30-200 mg/dL Cholesterol Level 116 <200 mg/dL LDL Cholesterol 61 0-99 mg/dL HDL Cholesterol 43 35-85 mg/dL Bedside Glucose Comment Notified Nurse Current Medications Medications (Trade) Dose Ordered Sig/Rashad Route PRN Reason Start Time Stop Time Status Last Admin Dose Admin Acetaminophen (TYLenol 325MG TAB) 650 mg Q4H PRN PO Temp >38.3C(AFTER EXTUBATION) 10/11/24 09:00 11/10/24 08:59 Acetaminophen (TYLenol 325MG TAB) 650 mg Q6H PRN PO MILD PAIN (1-3) 10/11/24 09:00 11/10/24 08:59 Acetaminophen (TYLenol 325MG TAB) 650 mg Q6H PRN PO TEMPERATURE GREATER THAN 101.5 10/05/24 23:30 11/04/24 23:29 10/10/24 06:06 650 MG Acetaminophen (TYLenol 650MG SUPPOSITORY) 650 mg Q4H PRN RC Temp >38.3C WHILE INTUBATED 10/11/24 09:00 11/10/24 08:59 Acetaminophen (acetaMINOPHEN) 1,000 mg Q6H6 IV 10/11/24 12:00 10/12/24 11:59 DC 10/12/24 05:06 1,000 MG Albumin Human 250 ml @ 0 mls/hr AD PRN IV IF HEMODYNAMICALLY UNSTABLE 10/11/24 09:00 10/11/24 23:20 DC 10/11/24 23:20 250 MLS/HR Aminocaproic Acid 39968 mg/Sodium Chloride 310 ml @ 25 mls/hr AD IV 10/11/24 09:00 10/11/24 08:54 DC Aminocaproic Acid 46381 mg/Sodium Chloride 480 ml @ 0 mls/hr AD PRN IV BLEEDING CONTROL 10/11/24 07:00 11/10/24 06:59 Amiodarone HCl 150 mg/Dextrose 103 ml @ 618 mls/hr ONCE IV 10/11/24 12:00 10/11/24 12:09 DC 10/11/24 11:57 618 MLS/HR Amiodarone HCl 360 mg/Dextrose 207.2 ml @ 33.3 mls/hr AD IV 10/11/24 12:00 11/10/24 11:59 10/11/24 12:04 33.3 MLS/HR Amiodarone HCl 540 mg/Dextrose 310.8 ml @ 16.7 mls/hr [id number] IV 10/11/24 12:00 11/10/24 11:59 10/11/24 18:20 16.7 MLS/HR Aspirin (Aspirin 81mg Chew Tab) 81 mg DAILY PO 10/06/24 09:00 11/05/24 08:59 10/12/24 08:42 81 MG Atorvastatin Calcium (LIPItor 20MG) 20 mg HS PO 10/08/24 21:00 10/11/24 08:37 DC 10/10/24 20:55 20 MG Atorvastatin Calcium (LIPItor 20MG) 40 mg HS PO 10/11/24 21:00 11/10/24 20:59 10/11/24 21:30 40 MG Calcium Gluconate 1 gm/Sodium Chloride 60 ml @ 200 mls/hr AD PRN IV HYPOCALCEMIA 10/11/24 09:00 11/10/24 08:59 10/12/24 05:06 200 MLS/HR Cefazolin Sodium (Ancef) 2 gm ONCALL PRN IVP SURGERY 10/10/24 12:00 10/12/24 11:59 DC Cefazolin Sodium (Ancef) 2 gm Q8H IVPB 10/11/24 14:00 10/12/24 06:01 DC 10/12/24 06:21 2 GM Clopidogrel Bisulfate (plaVIX 75MG) 75 mg DAILY PO 10/12/24 09:00 11/11/24 08:59 Cyclobenzaprine HCl (Cyclobenzaprine HCl) 5 mg TID PRN PO MUSCLE SPASMS 10/10/24 14:30 10/11/24 08:37 DC Dexmedetomidine/ Sodium Chloride (PRECEdex 400MCG/ 100ML-NS) 400 mcg PROTOCOL IV 10/11/24 09:00 10/12/24 08:59 DC Dextrose (D50w) 50 ml AD PRN IV HYPOGLYCEMIA PROTOCOL 10/11/24 09:00 11/10/24 08:59 Dextrose (D50w) 50 ml AD PRN IV HYPOGLYCEMIA PROTOCOL 10/11/24 15:00 11/10/24 14:59 Docusate Sodium (COLace 100MG CAP) 100 mg BID PO 10/12/24 09:00 11/11/24 08:59 10/12/24 08:42 100 MG Enoxaparin Sodium (Lovenox) 30 mg DAILY SQ 10/14/24 09:00 10/11/24 14:00 DC Epinephrine HCl 10 mg/Sodium Chloride 250 ml @ 7.716 mls/ hr AD PRN IV POST-OP CARDIOVASCULAR ORDERS 10/11/24 09:00 10/16/24 08:59 Epinephrine HCl 10 mg/Sodium Chloride 250 ml @ 0 mls/hr AD PRN IV TITRATE 10/11/24 07:00 10/11/24 09:01 DC Famotidine (Pepcid 20mg Vial) 20 mg BID IV 10/11/24 09:00 10/11/24 09:03 DC Famotidine (Pepcid 20mg Vial) 20 mg Q24H IV 10/11/24 09:30 11/10/24 08:59 10/12/24 08:42 20 MG Furosemide (LASix 20MG TAB) 20 mg Q12H PO 10/13/24 09:00 11/12/24 08:59 Furosemide (LASix 20MG VIAL) 20 mg Q12H IV 10/12/24 09:00 10/13/24 08:59 10/12/24 08:10 20 MG Glucagon (Glucagon 1mg Kit) 1 mg AD PRN IM HYPOGLYCEMIA PROTOCOL 10/11/24 09:00 11/10/24 08:59 Glucagon (Glucagon 1mg Kit) 1 mg AD PRN IM HYPOGLYCEMIA PROTOCOL 10/11/24 15:00 11/10/24 14:59 Heparin Sodium (Porcine) (HEParin 5,000 UNIT VIAL) *calculation based on ACTUAL B... AD PRN IV HEPARIN PROTOCOL 10/06/24 07:30 10/10/24 08:27 DC 10/06/24 07:19 3,877.5 UNIT Heparin Sodium (Porcine) (HEParin 5,000 UNIT VIAL) 5,000 unit BID SQ 10/06/24 09:00 10/06/24 06:29 DC Heparin Sodium/ Dextrose 250 ml @ 0 mls/hr PROTOCOL IV 10/11/24 16:00 10/11/24 15:24 DC Heparin Sodium/ Dextrose 250 ml @ 0 mls/hr PROTOCOL IV 10/11/24 16:00 11/10/24 15:59 10/11/24 16:14 8.7 MLS/HR Heparin Sodium/ Dextrose 250 ml @ 0 mls/hr Q6H IV 10/10/24 09:00 10/10/24 08:26 DC Heparin Sodium/ Dextrose 250 ml @ 0 mls/hr Q6H IV 10/06/24 07:30 10/10/24 08:17 DC 10/08/24 14:20 0 MLS/HR Insulin Human Regular (humuLIN R 100 UNIT/ML 3ML) INSULIN SLIDING SCAL... ACHS SQ 10/06/24 07:30 10/11/24 08:37 DC Insulin Human Regular 100 unit/ Sodium Chloride 100 ml @ 0 mls/hr AD IV 10/11/24 09:00 10/13/24 08:59 10/11/24 23:19 3 MLS/HR Lactulose (Constulose 20gm/ 30ml Udcup) 20 gm BID PRN PO CONSTIPATION 10/11/24 09:00 11/10/24 08:59 Levothyroxine Sodium (SYNTHroid 100MCG TAB) 100 mcg SYN PO 10/09/24 06:30 11/08/24 06:29 10/12/24 06:21 100 MCG Lidocaine HCl/ Dextrose 250 ml @ 0 mls/hr AD PRN IV TITRATE 10/11/24 11:00 11/10/24 10:59 10/12/24 14:44 7.5 MLS/HR Magnesium Hydroxide (Milk Of Magnesium 30ml) 30 ml DAILY PRN PO CONSTIPATION 10/11/24 09:00 11/10/24 08:59 Magnesium Sulfate 50 ml @ 12.5 mls/hr AD PRN IV MAG LEVEL LESS THAN 2.0 10/11/24 09:00 11/10/24 08:59 10/11/24 12:20 12.5 MLS/HR Magnesium Sulfate 50 ml @ 0 mls/hr PROTOCOL PRN IV h 10/05/24 23:30 10/11/24 08:37 DC Metoprolol Tartrate (loprESSOR) 12.5 mg BID PO 10/07/24 09:00 10/11/24 08:37 DC 10/11/24 06:32 12.5 MG Metoprolol Tartrate (loprESSOR) 12.5 mg BID PO 10/13/24 09:00 11/12/24 08:59 Morphine Sulfate (morPHINE 2MG SYG) 0.5 mg Q2H PRN IV MODERATE PAIN (4-6) 10/11/24 09:00 10/12/24 08:59 DC Morphine Sulfate (morPHINE 2MG SYG) 1 mg Q2H PRN IV SEVERE PAIN (7-10) 10/11/24 09:00 10/18/24 08:59 Nitroglycerin (Nitroglycerin 1gm Oint) 0.5 inch Q8H TD 10/05/24 23:30 10/11/24 08:37 DC 10/10/24 22:37 0.5 INCH Nitroglycerin (Nitrostat) 0.4 mg AD PRN SL CHEST PAIN 10/05/24 22:30 10/11/24 08:37 DC Nitroglycerin/ Dextrose 0 ml @ 0 mls/hr AD IV 10/11/24 09:00 10/14/24 08:59 10/11/24 12:00 0 MLS/HR Norepinephrine Bitartrate 250 ml @ 0 mls/hr AD PRN IV TITRATE 10/11/24 07:00 10/11/24 09:03 DC Norepinephrine Bitartrate 250 ml @ 0 mls/hr AD PRN IV POST-OP CARDIOVASCULAR ORDERS 10/11/24 09:00 11/10/24 08:59 10/12/24 08:08 11.3 MLS/HR Ondansetron HCl (zoFRAN 4MG INJ) 4 mg Q6H PRN IV NAUSEA/VOMITING 10/11/24 09:00 11/10/24 08:59 10/12/24 08:05 4 MG Ondansetron HCl (zoFRAN 4MG INJ) 4 mg Q6H PRN IV NAUSEA/VOMITING 10/05/24 23:30 10/11/24 08:37 DC Pantoprazole Sodium (PROTonix 40MG TAB) 40 mg DAILY PO 10/06/24 09:00 10/11/24 08:37 DC 10/10/24 09:00 40 MG Pharmacy Profile Note (Pharmacy Communication) 1 each ONCE MISC 10/07/24 17:30 10/08/24 07:12 DC 10/07/24 23:37 1 EACH Potassium Phosphate 250 ml @ 42 mls/hr AD PRN IV LOW PHOS LEVEL 10/11/24 09:00 11/10/24 08:59 Potassium Chloride 100 ml @ 100 mls/hr AD PRN IV HYPOKALEMIA 10/11/24 09:00 11/10/24 08:59 10/11/24 21:36 100 MLS/HR Potassium Chloride 100 ml @ 100 mls/hr AD PRN IV POTASSIUM PROTOCOL 10/05/24 23:30 10/11/24 08:37 DC Potassium Chloride (K-Dur/Klor-Con 20meq) 20 meq AD PRN PO POTASSIUM PROTOCOL 10/05/24 23:30 10/11/24 08:37 DC Potassium Chloride (KCl 10% Elixir 20meq/15ml) 20 meq AD PRN PO POTASSIUM PROTOCOL 10/05/24 23:30 10/11/24 08:37 DC 10/09/24 21:00 20 MEQ Propofol 100 ml @ 0 mls/hr AD PRN IV SEDATION 10/11/24 09:00 10/15/24 08:59 Sodium Bicarbonate (Sodium Bicarb 50meq 50ml Vial) 50 meq AD PRN IV OTHER[SEE DOSING INSTRUCTIONS] 10/11/24 09:00 10/14/24 08:59 10/11/24 18:14 50 MEQ Sodium Chloride 500 ml @ 0 mls/hr AD IV 10/11/24 09:00 11/10/24 08:59 Sodium Chloride 500 ml @ 0 mls/hr Q0M IV 10/06/24 21:30 10/11/24 08:37 DC Sodium Chloride 1,000 ml @ 10 mls/hr ONCE IV 10/11/24 09:00 10/11/24 08:52 DC Sodium Chloride (NS Flush 10ml) 10 ml Q8H IVP 10/07/24 17:30 11/06/24 17:29 10/12/24 08:42 10 ML Sodium Chloride (NS Flush 10ml) 10 ml Q8H PRN IVP IV LINE FLUSH 10/11/24 09:00 11/10/24 08:59 Tramadol HCl (UltRAM) 25 mg Q6H PRN PO MODERATE PAIN (4-6) 10/10/24 14:30 10/11/24 08:37 DC 10/10/24 16:13 25 MG Tramadol HCl (UltRAM) 25 mg Q6H PRN PO MODERATE PAIN (4-6) 10/11/24 09:00 10/16/24 08:59 Tramadol HCl (UltRAM) 50 mg Q6H PRN PO SEVERE PAIN (7-10) 10/11/24 09:00 10/16/24 08:59 Vasopressin 40 units/Sodium Chloride 40 ml @ 0 mls/hr PROTOCOL IV 10/11/24 11:00 11/10/24 10:59 DIAGNOSTICS / RADIOLOGY: [ ] ASSESSMENT: Chest pain, POA Abnormal EKG, POA Elevated troponin, POA CKD stage IIIA, POA uncontrolled Diabetes mellitius type2, POA Hypertension POA Hypothyroidism POA Raynaud's phenomenon POA GI bleed resolved NSTEMI POA Status post CABG x2 on 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
--- NOTE | 2024-10-12 16:42 | PN ---
CARDIOLOGY Reason for consult: NSTEMI HPI/story at presentation: This is a pleasant 79-year-old female with past medical history as below presents for chest discomfort. Patient was having mostly back pain and bilateral shoulder pain that was present yesterday morning and then subsequently, was in the ER for further evaluation and had significant elevated troponins therefore, cardiology was consulted for further evaluation and management Subjective: 10/06/2024 no active cardiac complaints 10/07/2024 no chest pain 10/08/2024 no further symptoms 10/09/2024 no complaints 10/10/2024 no complaints 10/11/2024 intubated Past medical history: See below Allergies, Meds See chart Review of systems intubated 10/11/2024 Vitals see chart PHYSICAL EXAMINATION GENERAL: intubated 10/11/2024 HEENT: Nonicteric sclerae, non traumatic HEART: Regular rate and rhythm with no murmurs LUNGS:intubated 10/11/2024 ABDOMEN: No acute issues, non tender GENITAL, RECTAL: deferred SKIN: No rash NEUROLOGIC: intubated 10/11/2024 EXTREMITIES: No edema ASSESSMENT NSTEMI,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 Plan for cardiac catheterization tomorrow to further evaluate coronaries Echo pending. risk-benefit discussed extensively and patient wants to proceed. 10/07/2024 Cardiac catheterization today for further evaluation of non-STEMI. Risk-benefit discussed. Primary team addressing possible scleroderma given issues with dysphagia. No active chest pain at this time echo with EF of 35- 40%, on metoprolol aspirin - add statin 10/08/2024 No active cardiac complaints at this time, no further issues with chest or back pain, awaiting final decision from CV surgery regarding surgery. Continue maximal medical therapy. 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 There is a question of GI bleeding with dark stools. Will get an occult blood and hold heparin for now. On atorvastatin beta-estefania and aspirin, continue. Hemoglobin stable. Carotid duplex was negative. Seen and examined 10/04/2024 at around 5 PM 10/09/2024 Was previously evaluated CV surgery, timing of surgery to be determined. On statin beta-estefania aspirin. Labs okay, occult blood has been ordered and is still pending. No further issues with dark stools per report. Currently off anticoagulation. Seen and examined 10/09/2024 at around 1730 10/10/2024 Had an episode of chest discomfort/upper back pain, managed conservatively at this time, heparin was not started. Troponins are trending down. Potential plans for surgery tomorrow. Patient however, thinks this might be related to spinal issues. Seen and examined 10/10/2024 at around 0900 10/11/2024 I was called in the late morning today by Dr. العراقي with concerns of ST elevations after surgery. Patient was taken emergently to cardiac catheterization and underwent intervention to the LAD. Patient had an occluded WILSON. Postprocedure, patient was doing well with hemodynamic stability and improvement in pressor requirements. Potential plans for extubation also noted. Seen and examined 10/11/2024 multiple times 10/12/2024 Extubated, blood pressures are doing okay off pressors. Currently, plan is to get off the balloon pump and then reevaluate. On antiplatelet therapy, s/p PCI to the LAD yesterday in the setting of NSTEMI. Bypass. Recovering well. Family at bedside, questions answered. Plan to switch amiodarone to p.o., agree with stopping lidocaine. Anemia will need to be addressed, transfuse as needed. Seen and examined 10/12/2024 at around 1700 ATTESTATION I was involved substantially in the care of this patient Number and complexity of problems addressed: 1 acute illness taht is a threat to life or bodily function Amount and or complexity of data Review of prior external note(s) from each unique source: 2+ Ordering of each unique test : 0 Review of the result(s) of each unique test: 2+ Assessment requiring an independent historian(s): No Independent interpretation of test performed by another MD/QHCP/appropriate source (not separately reported) : No Discussion of management or test interpretation with external MD/QHCP/appropriate source (not separately reported) : yes, CVT surgery Risk status (cardiac, billing related): high Vitals/Labs Vital Signs Date Time Temp Pulse Resp B/P (MAP) Pulse Ox O2 Delivery O2 Flow Rate FiO2 10/12/24 16:00 98.6 10/12/24 16:00 39 19 156/36 (76) 97 10/12/24 16:00 Nasal Cannula* 2 28 Laboratory Tests 10/11/24 16:40 10/12/24 04:02 10/12/24 09:39 Medications Current Medications Morphine Sulfate 2 mg ONCE ONCE IVP Last administered on 10/05/24 22:22; Start 10/05/24 at 22:30; Stop 10/05/24 at 22:31; Status DC Ketorolac Tromethamine 15 mg ONCE ONCE IV Last administered on 10/05/24at 23:34; Start 10/05/24 at 22:30; Stop 10/05/24 at 22:31; Status DC Nitroglycerin 0.4 mg AD PRN SL; Start 10/05/24 at 22:30; Stop 10/11/24 at 08:37; Status DC Aspirin 162 mg ONCE ONCE PO Last administered on 10/05/24at 23:32; Start 10/05/24 at 23:30; Stop 10/05/24 at 23:31; Status DC Aspirin 81 mg DAILY PO Last administered on 10/12/24at 08:42; Start 10/06/24 at 09:00; Stop 11/05/24 at 08:59 Nitroglycerin 0.5 inch Q8H TD Last administered on 10/10/24at 22:37; Start 10/05/24 at 23:30; Stop 10/11/24 at 08:37; Status DC Ondansetron HCl 4 mg Q6H PRN IV; Start 10/05/24 at 23:30; Stop 10/11/24 at 08:37; Status DC Heparin Sodium (Porcine) 5,000 unit BID SQ; Start 10/06/24 at 09:00; Stop 10/06/24 at 06:29; Status DC Pantoprazole Sodium 40 mg DAILY PO Last administered on 10/10/24at 09:00; Start 10/06/24 at 09:00; Stop 10/11/24 at 08:37; Status DC Acetaminophen 650 mg Q6H PRN PO Last administered on 10/10/24at 06:06; Start 10/05/24 at 23:30; Stop 11/04/24 at 23:29 Insulin Human Regular INSULIN SLIDING SCAL... ACHS SQ; Start 10/06/24 at 07:30; Stop 10/11/24 at 08:37; Status DC Potassium Chloride 100 ml @ 100 mls/hr AD PRN IV; Start 10/05/24 at 23:30; Stop 10/11/24 at 08:37; Status DC Potassium Chloride 20 meq AD PRN PO Last administered on 10/09/24at 21:00; Start 10/05/24 at 23:30; Stop 10/11/24 at 08:37; Status DC Potassium Chloride 20 meq AD PRN PO; Start 10/05/24 at 23:30; Stop 10/11/24 at 08:37; Status DC Magnesium Sulfate 50 ml @ 0 mls/hr PROTOCOL PRN IV; Start 10/05/24 at 23:30; Stop 10/11/24 at 08:37; Status DC Heparin Sodium (Porcine) *calculation based on ACTUAL B... AD PRN IV Last administered on 10/06/24at 07:19; Start 10/06/24 at 07:30; Stop 10/10/24 at 08:27; Status DC Heparin Sodium/ Dextrose 250 ml @ 0 mls/hr Q6H IV Last administered on 10/08/24at 14:20; Start 10/06/24 at 07:30; Stop 10/10/24 at 08:17; Status DC Atorvastatin Calcium 40 mg ONCE ONCE PO Last administered on 10/06/24at 21:22; Start 10/06/24 at 21:30; Stop 10/06/24 at 21:31; Status DC Clopidogrel Bisulfate 75 mg ONCE ONCE PO Last administered on 10/06/24at 21:22; Start 10/06/24 at 21:30; Stop 10/06/24 at 21:31; Status DC Metoprolol Tartrate 12.5 mg BID PO Last administered on 10/11/24at 06:32; Start 10/07/24 at 09:00; Stop 10/11/24 at 08:37; Status DC Sodium Chloride 500 ml @ 0 mls/hr Q0M IV; Start 10/06/24 at 21:30; Stop 10/11/24 at 08:37; Status DC Lidocaine HCl 20 ml STK-MED ONCE .ROUTE; Start 10/07/24 at 16:23; Stop 10/07/24 at 16:23; Status DC Iohexol 75 ml STK-MED ONCE IV; Start 10/07/24 at 16:23; Stop 10/07/24 at 16:23; Status DC Heparin Sodium (Porcine) 10,000 unit STK-MED ONCE .ROUTE; Start 10/07/24 at 16:23; Stop 10/07/24 at 16:23; Status DC Heparin Sodium/ Sodium Chloride 1,000 ml @ As Directed STK-MED ONCE IV; Start 10/07/24 at 16:23; Stop 10/07/24 at 16:23; Status DC Nitroglycerin 50 mg STK-MED ONCE .ROUTE; Start 10/07/24 at 16:23; Stop 10/07/24 at 16:23; Status DC Fentanyl Citrate 100 mcg STK-MED ONCE .ROUTE; Start 10/07/24 at 16:24; Stop 10/07/24 at 16:24; Status DC Midazolam HCl 2 mg STK-MED ONCE .ROUTE; Start 10/07/24 at 16:24; Stop 10/07/24 at 16:24; Status DC Nicardipine HCl 25 mg STK-MED ONCE IV; Start 10/07/24 at 16:24; Stop 10/07/24 at 16:24; Status DC Sodium Chloride 10 ml Q8H IVP Last administered on 10/12/24at 08:42; Start 10/07/24 at 17:30; Stop 11/06/24 at 17:29 Pharmacy Profile Note 1 each ONCE MISC Last administered on 10/07/24at 23:37; Start 10/07/24 at 17:30; Stop 10/08/24 at 07:12; Status DC Atorvastatin Calcium 20 mg HS PO Last administered on 10/10/24at 20:55; Start 10/08/24 at 21:00; Stop 10/11/24 at 08:37; Status DC Levothyroxine Sodium 100 mcg SYN PO Last administered on 10/12/24at 06:21; Start 10/09/24 at 06:30; Stop 11/08/24 at 06:29 Heparin Sodium/ Dextrose 250 ml @ 0 mls/hr Q6H IV; Start 10/10/24 at 09:00; Stop 10/10/24 at 08:26; Status DC Cefazolin Sodium 2 gm ONCALL PRN IVP; Start 10/10/24 at 12:00; Stop 10/12/24 at 11:59; Status DC Tramadol HCl 25 mg Q6H PRN PO Last administered on 10/10/24at 16:13; Start 10/10/24 at 14:30; Stop 10/11/24 at 08:37; Status DC Cyclobenzaprine HCl 5 mg TID PRN PO; Start 10/10/24 at 14:30; Stop 10/11/24 at 08:37; Status DC Epinephrine HCl 10 mg/Sodium Chloride 250 ml @ 0 mls/hr AD PRN IV; Start 10/11/24 at 07:00; Stop 10/11/24 at 09:01; Status DC Norepinephrine Bitartrate 250 ml @ 0 mls/hr AD PRN IV; Start 10/11/24 at 07:00; Stop 10/11/24 at 09:03; Status DC Aminocaproic Acid 60042 mg/Sodium Chloride 480 ml @ 0 mls/hr AD PRN IV; Start 10/11/24 at 07:00; Stop 11/10/24 at 06:59 Cefazolin Sodium 1 gm STK-MED ONCE .ROUTE; Start 10/11/24 at 06:50; Stop 10/11/24 at 06:51; Status DC Heparin Sodium/ Sodium Chloride 500 ml @ As Directed STK-MED ONCE IV; Start 10/11/24 at 06:51; Stop 10/11/24 at 06:51; Status DC Papaverine HCl 60 mg STK-MED ONCE .ROUTE; Start 10/11/24 at 06:51; Stop 10/11/24 at 06:51; Status DC Cefazolin Sodium 2 gm STK-MED ONCE .ROUTE; Start 10/11/24 at 06:53; Stop 10/11/24 at 06:54; Status DC Sodium Chloride 1,000 ml @ As Directed STK-MED ONCE IV; Start 10/11/24 at 06:53; Stop 10/11/24 at 06:54; Status DC Protamine Sulfate 250 mg STK-MED ONCE IV; Start 10/11/24 at 07:56; Stop 10/11/24 at 07:56; Status DC Lidocaine HCl 100 mg STK-MED ONCE .ROUTE; Start 10/11/24 at 07:56; Stop 10/11/24 at 07:56; Status DC Heparin Sodium (Porcine) 10,000 unit STK-MED ONCE .ROUTE; Start 10/11/24 at 07:56; Stop 10/11/24 at 07:56; Status DC Epinephrine HCl 1 mg STK-MED ONCE .ROUTE; Start 10/11/24 at 07:56; Stop 10/11/24 at 07:56; Status DC Sodium Bicarbonate 200 ml @ As Directed STK-MED ONCE .ROUTE; Start 10/11/24 at 07:56; Stop 10/11/24 at 07:56; Status DC Norepinephrine Bitartrate 4 mg STK-MED ONCE IV; Start 10/11/24 at 07:56; Stop 10/11/24 at 07:56; Status DC Fentanyl Citrate 1,000 mcg STK-MED ONCE IJ; Start 10/11/24 at 07:56; Stop 10/11/24 at 07:57; Status DC Propofol 200 mg STK-MED ONCE IV; Start 10/11/24 at 07:57; Stop 10/11/24 at 07:57; Status DC Midazolam HCl 2 mg STK-MED ONCE .ROUTE; Start 10/11/24 at 07:57; Stop 10/11/24 at 07:57; Status DC Rocuronium [place] 50 mg STK-MED ONCE .ROUTE; Start 10/11/24 at 07:57; Stop 10/11/24 at 07:57; Status DC Ketamine HCl 50 mg STK-MED ONCE .ROUTE; Start 10/11/24 at 07:57; Stop 10/11/24 at 07:58; Status DC Nitroglycerin/ Dextrose 1 ml @ As Directed STK-MED ONCE .ROUTE; Start 10/11/24 at 08:27; Stop 10/11/24 at 08:27; Status DC Atorvastatin Calcium 40 mg HS PO Last administered on 10/11/24at 21:30; Start 10/11/24 at 21:00; Stop 11/10/24 at 20:59 Acetaminophen 1,000 mg Q6H6 IV Last administered on 10/12/24at 05:06; Start 10/11/24 at 12:00; Stop 10/12/24 at 11:59; Status DC Aspirin 81 mg ONCE ONCE NG; Start 10/11/24 at 12:00; Stop 10/11/24 at 08:42; Status DC Docusate Sodium 100 mg BID PO Last administered on 10/12/24at 08:42; Start 10/12/24 at 09:00; Stop 11/11/24 at 08:59 Lactulose 20 gm BID PRN PO; Start 10/11/24 at 09:00; Stop 11/10/24 at 08:59 Furosemide 20 mg Q12H PO; Start 10/13/24 at 09:00; Stop 11/12/24 at 08:59 Furosemide 20 mg Q12H IV Last administered on 10/12/24at 08:10; Start 10/12/24 at 09:00; Stop 10/13/24 at 08:59 Enoxaparin Sodium 30 mg DAILY SQ; Start 10/14/24 at 09:00; Stop 10/11/24 at 14:00; Status DC Metoprolol Tartrate 12.5 mg BID PO; Start 10/13/24 at 09:00; Stop 11/12/24 at 08:59 Magnesium Hydroxide 30 ml DAILY PRN PO; Start 10/11/24 at 09:00; Stop 11/10/24 at 08:59 Dexmedetomidine/ Sodium Chloride 400 mcg PROTOCOL IV; Start 10/11/24 at 09:00; Stop 10/12/24 at 08:59; Status DC Acetaminophen 650 mg Q6H PRN PO; Start 10/11/24 at 09:00; Stop 11/10/24 at 08:59 Sodium Chloride 1,000 ml @ 10 mls/hr ONCE IV; Start 10/11/24 at 09:00; Stop 10/11/24 at 08:52; Status DC Sodium Chloride 10 ml Q8H PRN IVP; Start 10/11/24 at 09:00; Stop 11/10/24 at 08:59 Morphine Sulfate 0.5 mg Q2H PRN IV; Start 10/11/24 at 09:00; Stop 10/12/24 at 08:59; Status DC Morphine Sulfate 1 mg Q2H PRN IV; Start 10/11/24 at 09:00; Stop 10/18/24 at 08:59 Acetaminophen 650 mg Q4H PRN RC; Start 10/11/24 at 09:00; Stop 11/10/24 at 08:59 Ondansetron HCl 4 mg Q6H PRN IV Last administered on 10/12/24at 16:10; Start 10/11/24 at 09:00; Stop 11/10/24 at 08:59 Sodium Chloride 500 ml @ 0 mls/hr AD IV; Start 10/11/24 at 09:00; Stop 11/10/24 at 08:59 Nitroglycerin/ Dextrose 0 ml @ 0 mls/hr AD IV Last administered on 10/11/24at 12:00; Start 10/11/24 at 09:00; Stop 10/14/24 at 08:59 Propofol 100 ml @ 0 mls/hr AD PRN IV; Start 10/11/24 at 09:00; Stop 10/15/24 at 08:59 Norepinephrine Bitartrate 250 ml @ 0 mls/hr AD PRN IV Last administered on 10/12/24at 08:08; Start 10/11/24 at 09:00; Stop 11/10/24 at 08:59 Epinephrine HCl 10 mg/Sodium Chloride 250 ml @ 7.716 mls/ hr AD PRN IV; Start 10/11/24 at 09:00; Stop 10/16/24 at 08:59 Aminocaproic Acid 49696 mg/Sodium Chloride 310 ml @ 25 mls/hr AD IV; Start 10/11/24 at 09:00; Stop 10/11/24 at 08:54; Status DC Calcium Gluconate 1 gm/Sodium Chloride 60 ml @ 200 mls/hr AD PRN IV Last administered on 10/12/24at 05:06; Start 10/11/24 at 09:00; Stop 11/10/24 at 08:59 Magnesium Sulfate 50 ml @ 12.5 mls/hr AD PRN IV Last administered on 10/11/24at 12:20; Start 10/11/24 at 09:00; Stop 11/10/24 at 08:59 Potassium Chloride 100 ml @ 100 mls/hr AD PRN IV Last administered on 10/11/24at 21:36; Start 10/11/24 at 09:00; Stop 11/10/24 at 08:59 Potassium Phosphate 250 ml @ 42 mls/hr AD PRN IV; Start 10/11/24 at 09:00; Stop 11/10/24 at 08:59 Albumin Human 250 ml @ 0 mls/hr AD PRN IV Last administered on 10/11/24at 23:20; Start 10/11/24 at 09:00; Stop 10/11/24 at 23:20; Status DC Acetaminophen 650 mg Q4H PRN PO; Start 10/11/24 at 09:00; Stop 11/10/24 at 08:59 Insulin Human Regular 100 unit/ Sodium Chloride 100 ml @ 0 mls/hr AD IV Last administered on 10/11/24at 23:19; Start 10/11/24 at 09:00; Stop 10/13/24 at 08:59 Cefazolin Sodium 2 gm Q8H IVPB Last administered on 10/12/24at 06:21; Start 10/11/24 at 14:00; Stop 10/12/24 at 06:01; Status DC Tramadol HCl 25 mg Q6H PRN PO; Start 10/11/24 at 09:00; Stop 10/16/24 at 08:59 Tramadol HCl 50 mg Q6H PRN PO; Start 10/11/24 at 09:00; Stop 10/16/24 at 08:59 Famotidine 20 mg BID IV; Start 10/11/24 at 09:00; Stop 10/11/24 at 09:03; Status DC Sodium Bicarbonate 50 meq AD PRN IV Last administered on 10/11/24at 18:14; Start 10/11/24 at 09:00; Stop 10/14/24 at 08:59 Dextrose 50 ml AD PRN IV; Start 10/11/24 at 09:00; Stop 11/10/24 at 08:59 Glucagon 1 mg AD PRN IM; Start 10/11/24 at 09:00; Stop 11/10/24 at 08:59 Sodium Chloride 1,000 ml @ 10 mls/hr ONCE ONCE IV Last administered on 10/11/24at 10:30; Start 10/11/24 at 09:00; Stop 10/15/24 at 12:59 Famotidine 20 mg Q24H IV Last administered on 10/12/24at 08:42; Start 10/11/24 at 09:30; Stop 11/10/24 at 08:59 Vasopressin 20 units STK-MED ONCE .ROUTE; Start 10/11/24 at 09:42; Stop 10/11/24 at 09:42; Status DC Ephedrine Sulfate 50 mg STK-MED ONCE .ROUTE; Start 10/11/24 at 09:42; Stop 10/11/24 at 09:43; Status DC Protamine Sulfate 250 mg STK-MED ONCE IV; Start 10/11/24 at 09:54; Stop 10/11/24 at 09:54; Status DC Protamine Sulfate 50 mg STK-MED ONCE .ROUTE; Start 10/11/24 at 09:54; Stop 10/11/24 at 09:54; Status DC Heparin Sodium (Porcine) 10,000 unit STK-MED ONCE .ROUTE; Start 10/11/24 at 09:54; Stop 10/11/24 at 09:54; Status DC Vasopressin 40 units/Sodium Chloride 40 ml @ 0 mls/hr PROTOCOL IV; Start 10/11/24 at 11:00; Stop 11/10/24 at 10:59 Lidocaine HCl/ Dextrose 250 ml @ 0 mls/hr AD PRN IV Last administered on 10/12/24at 14:44; Start 10/11/24 at 11:00; Stop 11/10/24 at 10:59 Lidocaine HCl/ Dextrose 250 ml @ As Directed STK-MED ONCE IV; Start 10/11/24 at 10:57; Stop 10/11/24 at 10:57; Status DC Amiodarone HCl 150 mg/Dextrose 103 ml @ 618 mls/hr ONCE IV Last administered on 10/11/24at 11:57; Start 10/11/24 at 12:00; Stop 10/11/24 at 12:09; Status DC Amiodarone HCl 360 mg/Dextrose 207.2 ml @ 33.3 mls/hr AD IV Last administered on 10/11/24at 12:04; Start 10/11/24 at 12:00; Stop 11/10/24 at 11:59 Amiodarone HCl 540 mg/Dextrose 310.8 ml @ 16.7 mls/hr [id number] IV Last administered on 10/11/24at 18:20; Start 10/11/24 at 12:00; Stop 11/10/24 at 11:59 Atropine Sulfate 1 mg STK-MED ONCE IVP; Start 10/11/24 at 12:42; Stop 10/11/24 at 12:42; Status DC Iohexol 35,000 mg STK-MED ONCE IV; Start 10/11/24 at 12:42; Stop 10/11/24 at 12:42; Status DC Heparin Sodium (Porcine) 10,000 unit STK-MED ONCE .ROUTE; Start 10/11/24 at 12:42; Stop 10/11/24 at 12:42; Status DC Heparin Sodium/ Sodium Chloride 1,000 ml @ As Directed STK-MED ONCE IV; Start 10/11/24 at 12:42; Stop 10/11/24 at 12:43; Status DC Nitroglycerin 50 mg STK-MED ONCE .ROUTE; Start 10/11/24 at 12:42; Stop 10/11/24 at 12:43; Status DC Lidocaine HCl 20 ml STK-MED ONCE .ROUTE; Start 10/11/24 at 12:43; Stop 10/11/24 at 12:43; Status DC Bivalirudin 250 mg STK-MED ONCE IV; Start 10/11/24 at 13:27; Stop 10/11/24 at 13:27; Status DC Iohexol 35,000 mg STK-MED ONCE IV; Start 10/11/24 at 13:34; Stop 10/11/24 at 13:34; Status DC Clopidogrel Bisulfate 300 mg STK-MED ONCE .ROUTE; Start 10/11/24 at 13:45; Stop 10/11/24 at 13:47; Status DC Clopidogrel Bisulfate 75 mg DAILY PO; Start 10/12/24 at 09:00; Stop 11/11/24 at 08:59 Heparin Sodium/ Dextrose 250 ml @ 0 mls/hr PROTOCOL IV Last administered on 10/11/24at 16:14; Start 10/11/24 at 16:00; Stop 11/10/24 at 15:59 Dextrose 50 ml AD PRN IV; Start 10/11/24 at 15:00; Stop 11/10/24 at 14:59 Glucagon 1 mg AD PRN IM; Start 10/11/24 at 15:00; Stop 11/10/24 at 14:59 Heparin Sodium/ Dextrose 250 ml @ 0 mls/hr PROTOCOL IV; Start 10/11/24 at 16:00; Stop 10/11/24 at 15:24; Status DC Cefazolin Sodium 2 gm STK-MED ONCE IVPB Last administered on 10/11/24at 08:30; Start 10/11/24 at 08:30; Stop 10/11/24 at 20:01; Status DC Cefazolin Sodium 1 gm STK-MED ONCE IRRIG Last administered on 10/11/24at 09:00; Start 10/11/24 at 09:00; Stop 10/11/24 at 20:01; Status DC Papaverine HCl 60 mg STK-MED ONCE IRRIG Last administered on 10/11/24at 09:00; Start 10/11/24 at 09:00; Stop 10/11/24 at 20:01; Status DC Heparin Sodium (Porcine) 5,000 unit STK-MED ONCE IRRIG Last administered on 10/11/24at 09:00; Start 10/11/24 at 09:00; Stop 10/11/24 at 20:01; Status DC Furosemide 20 mg ONCE ONCE IV; Start 10/12/24 at 02:30; Stop 10/12/24 at 02:31; Status DC Furosemide 20 mg STK-MED ONCE .ROUTE Last administered on 10/12/24at 02:20; Start 10/12/24 at 02:16; Stop 10/12/24 at 02:17; Status DC GUANACO ORELLANA MD Oct 12, 2024 16:42
[2024-10-12 18:24] LABS: HEMATOCRIT 20.3 % (36-48)
[2024-10-12] MEDS: ALBUMIN (HUMAN) 5% 250 ML IV ONE (21:19)
[2024-10-12 22:57] LABS: HEMATOCRIT 25.7 % (36-48)
[2024-10-12 23:11] LABS: CREATININE 1.4 mg/dL (0.5-1.0); MAGNESIUM 1.7 mg/dL (1.80-2.40); PHOSPHORUS 5.7 mg/dL (2.5-4.9); POTASSIUM 4.4 mmol/L (3.5-5.1)
[2024-10-13] VITALS (85 sets, daily range): BP systolic 101–189; BP diastolic 45–212; PULSE 65–96; RESP 10–21; TEMP 97.2–98.7; O2SAT 94–99
[2024-10-13 05:21] LABS: BASOPHILS # (AUTO) 0.04 K/uL (0.00-0.20); BASOPHILS % (AUTO) 0.2 % (0.0-5.0); EOSINOPHILS # (AUTO) 0.09 K/uL (0.00-0.70); EOSINOPHILS % (AUTO) 0.5 % (0.0-8.0); HEMATOCRIT 22.5 % (36-48); IMMATURE GRANULOCYTE ABSOLUTE 0.09 K/uL (0-1); LYMPHOCYTES % (AUTO) 10.5 % (21.0-51.0); MEAN CORPUSCULAR HEMOGLOBIN 30.7 pg (27.0-33.0); MEAN CORPUSCULAR HGB CONC 35.6 g/dL (32.0-36.0); MEAN CORPUSCULAR VOLUME 86.2 fL (79-99); MONOCYTES # (AUTO) 1.5 K/uL (0.1-1.0); MONOCYTES % (AUTO) 7.8 % (3.0-13.0); NEUTROPHILS # (AUTO) 15.5 K/uL (1.8-7.7); NEUTROPHILS % (AUTO) 80.5 % (40.0-77.0); NUCLEATED RED BLOOD CELLS 0.6 % (0.0-0.19); PLATELET COUNT (AUTO) 91 K/uL (130-400); RED BLOOD CELL COUNT(AUTO) 2.61 MIL/uL (4.00-5.50); RED CELL DISTRIBUTION WIDTH 15.6 % (11.0-15.5); WHITE BLOOD COUNT (AUTO) 19.3 K/uL (4.8-10.8)
[2024-10-13 05:30] LABS: CREATININE 1.2 mg/dL (0.5-1.0); POTASSIUM 4.3 mmol/L (3.5-5.1)
[2024-10-13] MEDS: metoPROLOL tartRATE 25 MG TAB PO SCH (07:44)
[2024-10-13] MEDS: AMIOdarone 200 MG TABLET PO SCH (08:05)
[2024-10-13] MEDS: furoSEMIDE 20 MG TABLET PO SCH (08:06)
--- NOTE | 2024-10-13 08:45 | HMCIMG ---
Exam Type: CHEST 1VW Clinical Information: s/p CABG Comparison: None Findings: Pulmonary pattern is as before. No worrisome interval changes have taken place. Impression: Stable exam.
[2024-10-13 11:18] LABS: ABG BASE EXCESS 2.2 mmol/L (-2.0-3.0); ABG HCO3 26.4 mmol/L (21.0-28.0); ABG OXYGEN SATURATION 93.5 % (94.0-98.0); ABG PCO2 39 mmHg (32-45); ABG PH 7.447 (7.350-7.450); CARBON MONOXIDE 0.3 % (0.5-1.5); DEVICE COMMENT RN EDDIE; HHb 6.4; PO2, ARTERIAL BG 72.3 mmHg (83.0-108.0); VENT MODE, BG NC (ROOM AIR)
[2024-10-13] MEDS: INSULIN humuLIN R 100 UNIT/ML 3ML SQ SCH (11:19)
--- NOTE | 2024-10-13 11:34 | PN ---
CARDIOLOGY Reason for consult: NSTEMI HPI/story at presentation: This is a pleasant 79-year-old female with past medical history as below presents for chest discomfort. Patient was having mostly back pain and bilateral shoulder pain that was present yesterday morning and then subsequently, was in the ER for further evaluation and had significant elevated troponins therefore, cardiology was consulted for further evaluation and management Subjective: 10/06/2024 no active cardiac complaints 10/07/2024 no chest pain 10/08/2024 no further symptoms 10/09/2024 no complaints 10/10/2024 no complaints 10/11/2024 intubated 10/13/2024 no complaints Past medical history: See below Allergies, Meds See chart Review of systems intubated 10/11/2024 Vitals see chart PHYSICAL EXAMINATION GENERAL: intubated 10/11/2024 HEENT: Nonicteric sclerae, non traumatic HEART: Regular rate and rhythm with no murmurs LUNGS:intubated 10/11/2024 ABDOMEN: No acute issues, non tender GENITAL, RECTAL: deferred SKIN: No rash NEUROLOGIC: intubated 10/11/2024 EXTREMITIES: No edema ASSESSMENT NSTEMI,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 Plan for cardiac catheterization tomorrow to further evaluate coronaries Echo pending. risk-benefit discussed extensively and patient wants to proceed. 10/07/2024 Cardiac catheterization today for further evaluation of non-STEMI. Risk-benefit discussed. Primary team addressing possible scleroderma given issues with dysphagia. No active chest pain at this time echo with EF of 35- 40%, on metoprolol aspirin - add statin 10/08/2024 No active cardiac complaints at this time, no further issues with chest or back pain, awaiting final decision from CV surgery regarding surgery. Continue maximal medical therapy. 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 There is a question of GI bleeding with dark stools. Will get an occult blood and hold heparin for now. On atorvastatin beta-estefania and aspirin, continue. Hemoglobin stable. Carotid duplex was negative. Seen and examined 10/04/2024 at around 5 PM 10/09/2024 Was previously evaluated CV surgery, timing of surgery to be determined. On statin beta-estefania aspirin. Labs okay, occult blood has been ordered and is still pending. No further issues with dark stools per report. Currently off anticoagulation. Seen and examined 10/09/2024 at around 1730 10/10/2024 Had an episode of chest discomfort/upper back pain, managed conservatively at this time, heparin was not started. Troponins are trending down. Potential plans for surgery tomorrow. Patient however, thinks this might be related to spinal issues. Seen and examined 10/10/2024 at around 0900 10/11/2024 I was called in the late morning today by Dr. العراقي with concerns of ST elevations after surgery. Patient was taken emergently to cardiac catheterization and underwent intervention to the LAD. Patient had an occluded WILSON. Postprocedure, patient was doing well with hemodynamic stability and improvement in pressor requirements. Potential plans for extubation also noted. Seen and examined 10/11/2024 multiple times 10/12/2024 Extubated, blood pressures are doing okay off pressors. Currently, plan is to get off the balloon pump and then reevaluate. On antiplatelet therapy, s/p PCI to the LAD yesterday in the setting of NSTEMI. Bypass. Recovering well. Family at bedside, questions answered. Plan to switch amiodarone to p.o., agree with stopping lidocaine. Anemia will need to be addressed, transfuse as needed. Seen and examined 10/12/2024 at around 1700 10/13/2024 Doing well, hemodynamic stable, not any pressors, had issues with hematoma from the balloon pump yesterday and did receive 1 unit of transfusion. Otherwise, doing well, states that she is on the left 24, not very ambulatory at this time. Asking to be able to get up hopefully, this can be accomplished tomorrow or day after once the left-sided sheath is out. Appreciate CV surgery, critical care. Currently on Plavix in spite of thrombocytopenia given recent PCI to the LAD. On Amio beta-estefania Lasix Plavix atorvastatin. No longer on lidocaine. Watch hemoglobin. Renal function slightly elevated as well but this is better than yesterday. ATTESTATION I was involved substantially in the care of this patient Number and complexity of problems addressed: 1 acute illness taht is a threat to life or bodily function Amount and or complexity of data Review of prior external note(s) from each unique source: 2+ Ordering of each unique test : 0 Review of the result(s) of each unique test: 2+ Assessment requiring an independent historian(s): No Independent interpretation of test performed by another MD/QHCP/appropriate source (not separately reported) : No Discussion of management or test interpretation with external MD/QHCP/appropriate source (not separately reported) : yes, CVT surgery Risk status (cardiac, billing related): high Vitals/Labs Vital Signs Date Time Temp Pulse Resp B/P (MAP) Pulse Ox O2 Delivery O2 Flow Rate FiO2 10/13/24 11:00 94 17 113/60 (77) 96 129/60 (83) 10/13/24 08:00 97.9 10/13/24 08:00 28 10/13/24 08:00 Nasal Cannula* 2 Laboratory Tests 10/12/24 18:13 10/12/24 22:36 10/13/24 04:56 Medications Current Medications Morphine Sulfate 2 mg ONCE ONCE IVP Last administered on 10/05/24at 22:22; Start 10/05/24 at 22:30; Stop 10/05/24 at 22:31; Status DC Ketorolac Tromethamine 15 mg ONCE ONCE IV Last administered on 10/05/24at 23:34; Start 10/05/24 at 22:30; Stop 10/05/24 at 22:31; Status DC Nitroglycerin 0.4 mg AD PRN SL; Start 10/05/24 at 22:30; Stop 10/11/24 at 08:37; Status DC Aspirin 162 mg ONCE ONCE PO Last administered on 10/05/24at 23:32; Start 10/05/24 at 23:30; Stop 10/05/24 at 23:31; Status DC Aspirin 81 mg DAILY PO Last administered on 10/13/24at 08:06; Start 10/06/24 at 09:00; Stop 11/05/24 at 08:59 Nitroglycerin 0.5 inch Q8H TD Last administered on 10/10/24at 22:37; Start 10/05/24 at 23:30; Stop 10/11/24 at 08:37; Status DC Ondansetron HCl 4 mg Q6H PRN IV; Start 10/05/24 at 23:30; Stop 10/11/24 at 08:37; Status DC Heparin Sodium (Porcine) 5,000 unit BID SQ; Start 10/06/24 at 09:00; Stop 10/06/24 at 06:29; Status DC Pantoprazole Sodium 40 mg DAILY PO Last administered on 10/10/24at 09:00; Start 10/06/24 at 09:00; Stop 10/11/24 at 08:37; Status DC Acetaminophen 650 mg Q6H PRN PO Last administered on 10/10/24at 06:06; Start 10/05/24 at 23:30; Stop 11/04/24 at 23:29 Insulin Human Regular INSULIN SLIDING SCAL... ACHS SQ; Start 10/06/24 at 07:30; Stop 10/11/24 at 08:37; Status DC Potassium Chloride 100 ml @ 100 mls/hr AD PRN IV; Start 10/05/24 at 23:30; Stop 10/11/24 at 08:37; Status DC Potassium Chloride 20 meq AD PRN PO Last administered on 10/09/24at 21:00; Start 10/05/24 at 23:30; Stop 10/11/24 at 08:37; Status DC Potassium Chloride 20 meq AD PRN PO; Start 10/05/24 at 23:30; Stop 10/11/24 at 08:37; Status DC Magnesium Sulfate 50 ml @ 0 mls/hr PROTOCOL PRN IV; Start 10/05/24 at 23:30; Stop 10/11/24 at 08:37; Status DC Heparin Sodium (Porcine) *calculation based on ACTUAL B... AD PRN IV Last administered on 10/06/24at 07:19; Start 10/06/24 at 07:30; Stop 10/10/24 at 08:27; Status DC Heparin Sodium/ Dextrose 250 ml @ 0 mls/hr Q6H IV Last administered on 10/08/24at 14:20; Start 10/06/24 at 07:30; Stop 10/10/24 at 08:17; Status DC Atorvastatin Calcium 40 mg ONCE ONCE PO Last administered on 10/06/24at 21:22; Start 10/06/24 at 21:30; Stop 10/06/24 at 21:31; Status DC Clopidogrel Bisulfate 75 mg ONCE ONCE PO Last administered on 10/06/24at 21:22; Start 10/06/24 at 21:30; Stop 10/06/24 at 21:31; Status DC Metoprolol Tartrate 12.5 mg BID PO Last administered on 10/11/24at 06:32; Start 10/07/24 at 09:00; Stop 10/11/24 at 08:37; Status DC Sodium Chloride 500 ml @ 0 mls/hr Q0M IV; Start 10/06/24 at 21:30; Stop 10/11/24 at 08:37; Status DC Lidocaine HCl 20 ml STK-MED ONCE .ROUTE; Start 10/07/24 at 16:23; Stop 10/07/24 at 16:23; Status DC Iohexol 75 ml STK-MED ONCE IV; Start 10/07/24 at 16:23; Stop 10/07/24 at 16:23; Status DC Heparin Sodium (Porcine) 10,000 unit STK-MED ONCE .ROUTE; Start 10/07/24 at 16:23; Stop 10/07/24 at 16:23; Status DC Heparin Sodium/ Sodium Chloride 1,000 ml @ As Directed STK-MED ONCE IV; Start 10/07/24 at 16:23; Stop 10/07/24 at 16:23; Status DC Nitroglycerin 50 mg STK-MED ONCE .ROUTE; Start 10/07/24 at 16:23; Stop 10/07/24 at 16:23; Status DC Fentanyl Citrate 100 mcg STK-MED ONCE .ROUTE; Start 10/07/24 at 16:24; Stop 10/07/24 at 16:24; Status DC Midazolam HCl 2 mg STK-MED ONCE .ROUTE; Start 10/07/24 at 16:24; Stop 10/07/24 at 16:24; Status DC Nicardipine HCl 25 mg STK-MED ONCE IV; Start 10/07/24 at 16:24; Stop 10/07/24 at 16:24; Status DC Sodium Chloride 10 ml Q8H IVP Last administered on 10/12/24at 08:42; Start 10/07/24 at 17:30; Stop 11/06/24 at 17:29 Pharmacy Profile Note 1 each ONCE MISC Last administered on 10/07/24at 23:37; Start 10/07/24 at 17:30; Stop 10/08/24 at 07:12; Status DC Atorvastatin Calcium 20 mg HS PO Last administered on 10/10/24at 20:55; Start 10/08/24 at 21:00; Stop 10/11/24 at 08:37; Status DC Levothyroxine Sodium 100 mcg SYN PO Last administered on 10/13/24at 06:11; Start 10/09/24 at 06:30; Stop 11/08/24 at 06:29 Heparin Sodium/ Dextrose 250 ml @ 0 mls/hr Q6H IV; Start 10/10/24 at 09:00; Stop 10/10/24 at 08:26; Status DC Cefazolin Sodium 2 gm ONCALL PRN IVP; Start 10/10/24 at 12:00; Stop 10/12/24 at 11:59; Status DC Tramadol HCl 25 mg Q6H PRN PO Last administered on 10/10/24at 16:13; Start 10/10/24 at 14:30; Stop 10/11/24 at 08:37; Status DC Cyclobenzaprine HCl 5 mg TID PRN PO; Start 10/10/24 at 14:30; Stop 10/11/24 at 08:37; Status DC Epinephrine HCl 10 mg/Sodium Chloride 250 ml @ 0 mls/hr AD PRN IV; Start 10/11/24 at 07:00; Stop 10/11/24 at 09:01; Status DC Norepinephrine Bitartrate 250 ml @ 0 mls/hr AD PRN IV; Start 10/11/24 at 07:00; Stop 10/11/24 at 09:03; Status DC Aminocaproic Acid 17946 mg/Sodium Chloride 480 ml @ 0 mls/hr AD PRN IV; Start 10/11/24 at 07:00; Stop 11/10/24 at 06:59 Cefazolin Sodium 1 gm STK-MED ONCE .ROUTE; Start 10/11/24 at 06:50; Stop 10/11/24 at 06:51; Status DC Heparin Sodium/ Sodium Chloride 500 ml @ As Directed STK-MED ONCE IV; Start 10/11/24 at 06:51; Stop 10/11/24 at 06:51; Status DC Papaverine HCl 60 mg STK-MED ONCE .ROUTE; Start 10/11/24 at 06:51; Stop 10/11/24 at 06:51; Status DC Cefazolin Sodium 2 gm STK-MED ONCE .ROUTE; Start 10/11/24 at 06:53; Stop 10/11/24 at 06:54; Status DC Sodium Chloride 1,000 ml @ As Directed STK-MED ONCE IV; Start 10/11/24 at 06:53; Stop 10/11/24 at 06:54; Status DC Protamine Sulfate 250 mg STK-MED ONCE IV; Start 10/11/24 at 07:56; Stop 10/11/24 at 07:56; Status DC Lidocaine HCl 100 mg STK-MED ONCE .ROUTE; Start 10/11/24 at 07:56; Stop 10/11/24 at 07:56; Status DC Heparin Sodium (Porcine) 10,000 unit STK-MED ONCE .ROUTE; Start 10/11/24 at 07:56; Stop 10/11/24 at 07:56; Status DC Epinephrine HCl 1 mg STK-MED ONCE .ROUTE; Start 10/11/24 at 07:56; Stop 10/11/24 at 07:56; Status DC Sodium Bicarbonate 200 ml @ As Directed STK-MED ONCE .ROUTE; Start 10/11/24 at 07:56; Stop 10/11/24 at 07:56; Status DC Norepinephrine Bitartrate 4 mg STK-MED ONCE IV; Start 10/11/24 at 07:56; Stop 10/11/24 at 07:56; Status DC Fentanyl Citrate 1,000 mcg STK-MED ONCE IJ; Start 10/11/24 at 07:56; Stop 10/11/24 at 07:57; Status DC Propofol 200 mg STK-MED ONCE IV; Start 10/11/24 at 07:57; Stop 10/11/24 at 07:57; Status DC Midazolam HCl 2 mg STK-MED ONCE .ROUTE; Start 10/11/24 at 07:57; Stop 10/11/24 at 07:57; Status DC Rocuronium Ririe 50 mg STK-MED ONCE .ROUTE; Start 10/11/24 at 07:57; Stop 10/11/24 at 07:57; Status DC Ketamine HCl 50 mg STK-MED ONCE .ROUTE; Start 10/11/24 at 07:57; Stop 10/11/24 at 07:58; Status DC Nitroglycerin/ Dextrose 1 ml @ As Directed STK-MED ONCE .ROUTE; Start 10/11/24 at 08:27; Stop 10/11/24 at 08:27; Status DC Atorvastatin Calcium 40 mg HS PO Last administered on 10/12/24at 21:15; Start 10/11/24 at 21:00; Stop 11/10/24 at 20:59 Acetaminophen 1,000 mg Q6H6 IV Last administered on 10/12/24at 05:06; Start 10/11/24 at 12:00; Stop 10/12/24 at 11:59; Status DC Aspirin 81 mg ONCE ONCE NG; Start 10/11/24 at 12:00; Stop 10/11/24 at 08:42; Status DC Docusate Sodium 100 mg BID PO Last administered on 10/13/24at 08:06; Start 10/12/24 at 09:00; Stop 11/11/24 at 08:59 Lactulose 20 gm BID PRN PO; Start 10/11/24 at 09:00; Stop 11/10/24 at 08:59 Furosemide 20 mg Q12H PO Last administered on 10/13/24at 08:06; Start 10/13/24 at 09:00; Stop 11/12/24 at 08:59 Furosemide 20 mg Q12H IV Last administered on 10/12/24at 21:18; Start 10/12/24 at 09:00; Stop 10/13/24 at 08:59; Status DC Enoxaparin Sodium 30 mg DAILY SQ; Start 10/14/24 at 09:00; Stop 10/11/24 at 14:00; Status DC Metoprolol Tartrate 12.5 mg BID PO; Start 10/13/24 at 09:00; Stop 11/12/24 at 08:59 Magnesium Hydroxide 30 ml DAILY PRN PO; Start 10/11/24 at 09:00; Stop 11/10/24 at 08:59 Dexmedetomidine/ Sodium Chloride 400 mcg PROTOCOL IV; Start 10/11/24 at 09:00; Stop 10/12/24 at 08:59; Status DC Acetaminophen 650 mg Q6H PRN PO; Start 10/11/24 at 09:00; Stop 11/10/24 at 08:59 Sodium Chloride 1,000 ml @ 10 mls/hr ONCE IV; Start 10/11/24 at 09:00; Stop 10/11/24 at 08:52; Status DC Sodium Chloride 10 ml Q8H PRN IVP; Start 10/11/24 at 09:00; Stop 11/10/24 at 08:59 Morphine Sulfate 0.5 mg Q2H PRN IV; Start 10/11/24 at 09:00; Stop 10/12/24 at 08:59; Status DC Morphine Sulfate 1 mg Q2H PRN IV; Start 10/11/24 at 09:00; Stop 10/18/24 at 08:59 Acetaminophen 650 mg Q4H PRN RC; Start 10/11/24 at 09:00; Stop 11/10/24 at 08:59 Ondansetron HCl 4 mg Q6H PRN IV Last administered on 10/13/24at 08:20; Start 10/11/24 at 09:00; Stop 11/10/24 at 08:59 Sodium Chloride 500 ml @ 0 mls/hr AD IV; Start 10/11/24 at 09:00; Stop 11/10/24 at 08:59 Nitroglycerin/ Dextrose 0 ml @ 0 mls/hr AD IV Last administered on 10/11/24at 12:00; Start 10/11/24 at 09:00; Stop 10/14/24 at 08:59 Propofol 100 ml @ 0 mls/hr AD PRN IV; Start 10/11/24 at 09:00; Stop 10/15/24 at 08:59 Norepinephrine Bitartrate 250 ml @ 0 mls/hr AD PRN IV Last administered on 10/12/24at 08:08; Start 10/11/24 at 09:00; Stop 11/10/24 at 08:59 Epinephrine HCl 10 mg/Sodium Chloride 250 ml @ 7.716 mls/ hr AD PRN IV; Start 10/11/24 at 09:00; Stop 10/16/24 at 08:59 Aminocaproic Acid 77867 mg/Sodium Chloride 310 ml @ 25 mls/hr AD IV; Start 10/11/24 at 09:00; Stop 10/11/24 at 08:54; Status DC Calcium Gluconate 1 gm/Sodium Chloride 60 ml @ 200 mls/hr AD PRN IV Last administered on 10/13/24at 11:20; Start 10/11/24 at 09:00; Stop 11/10/24 at 08:59 Magnesium Sulfate 50 ml @ 12.5 mls/hr AD PRN IV Last administered on 10/12/24at 23:52; Start 10/11/24 at 09:00; Stop 11/10/24 at 08:59 Potassium Chloride 100 ml @ 100 mls/hr AD PRN IV Last administered on 10/11/24at 21:36; Start 10/11/24 at 09:00; Stop 11/10/24 at 08:59 Potassium Phosphate 250 ml @ 42 mls/hr AD PRN IV; Start 10/11/24 at 09:00; Stop 11/10/24 at 08:59 Albumin Human 250 ml @ 0 mls/hr AD PRN IV Last administered on 10/11/24at 23:20; Start 10/11/24 at 09:00; Stop 10/11/24 at 23:20; Status DC Acetaminophen 650 mg Q4H PRN PO; Start 10/11/24 at 09:00; Stop 11/10/24 at 08:59 Insulin Human Regular 100 unit/ Sodium Chloride 100 ml @ 0 mls/hr AD IV Last administered on 10/11/24at 23:19; Start 10/11/24 at 09:00; Stop 10/13/24 at 08:59; Status DC Cefazolin Sodium 2 gm Q8H IVPB Last administered on 10/12/24at 06:21; Start 10/11/24 at 14:00; Stop 10/12/24 at 06:01; Status DC Tramadol HCl 25 mg Q6H PRN PO; Start 10/11/24 at 09:00; Stop 10/16/24 at 08:59 Tramadol HCl 50 mg Q6H PRN PO; Start 10/11/24 at 09:00; Stop 10/16/24 at 08:59 Famotidine 20 mg BID IV; Start 10/11/24 at 09:00; Stop 10/11/24 at 09:03; Status DC Sodium Bicarbonate 50 meq AD PRN IV Last administered on 10/11/24at 18:14; Start 10/11/24 at 09:00; Stop 10/14/24 at 08:59 Dextrose 50 ml AD PRN IV; Start 10/11/24 at 09:00; Stop 10/13/24 at 07:52; Status DC Glucagon 1 mg AD PRN IM; Start 10/11/24 at 09:00; Stop 10/13/24 at 07:52; Status DC Sodium Chloride 1,000 ml @ 10 mls/hr ONCE ONCE IV Last administered on 10/11/24at 10:30; Start 10/11/24 at 09:00; Stop 10/15/24 at 12:59 Famotidine 20 mg Q24H IV Last administered on 10/13/24at 08:07; Start 10/11/24 at 09:30; Stop 11/10/24 at 08:59 Vasopressin 20 units STK-MED ONCE .ROUTE; Start 10/11/24 at 09:42; Stop 10/11/24 at 09:42; Status DC Ephedrine Sulfate 50 mg STK-MED ONCE .ROUTE; Start 10/11/24 at 09:42; Stop 10/11/24 at 09:43; Status DC Protamine Sulfate 250 mg STK-MED ONCE IV; Start 10/11/24 at 09:54; Stop 10/11/24 at 09:54; Status DC Protamine Sulfate 50 mg STK-MED ONCE .ROUTE; Start 10/11/24 at 09:54; Stop 10/11/24 at 09:54; Status DC Heparin Sodium (Porcine) 10,000 unit STK-MED ONCE .ROUTE; Start 10/11/24 at 09:54; Stop 10/11/24 at 09:54; Status DC Vasopressin 40 units/Sodium Chloride 40 ml @ 0 mls/hr PROTOCOL IV; Start 10/11/24 at 11:00; Stop 11/10/24 at 10:59 Lidocaine HCl/ Dextrose 250 ml @ 0 mls/hr AD PRN IV Last administered on 10/12/24at 14:44; Start 10/11/24 at 11:00; Stop 10/12/24 at 19:18; Status DC Lidocaine HCl/ Dextrose 250 ml @ As Directed STK-MED ONCE IV; Start 10/11/24 at 10:57; Stop 10/11/24 at 10:57; Status DC Amiodarone HCl 150 mg/Dextrose 103 ml @ 618 mls/hr ONCE IV Last administered on 10/11/24at 11:57; Start 10/11/24 at 12:00; Stop 10/11/24 at 12:09; Status DC Amiodarone HCl 360 mg/Dextrose 207.2 ml @ 33.3 mls/hr AD IV Last administered on 10/11/24at 12:04; Start 10/11/24 at 12:00; Stop 10/12/24 at 19:18; Status DC Amiodarone HCl 540 mg/Dextrose 310.8 ml @ 16.7 mls/hr [id number] IV Last administered on 10/11/24at 18:20; Start 10/11/24 at 12:00; Stop 11/10/24 at 11:59 Atropine Sulfate 1 mg STK-MED ONCE IVP; Start 10/11/24 at 12:42; Stop 10/11/24 at 12:42; Status DC Iohexol 35,000 mg STK-MED ONCE IV; Start 10/11/24 at 12:42; Stop 10/11/24 at 12:42; Status DC Heparin Sodium (Porcine) 10,000 unit STK-MED ONCE .ROUTE; Start 10/11/24 at 12:42; Stop 10/11/24 at 12:42; Status DC Heparin Sodium/ Sodium Chloride 1,000 ml @ As Directed STK-MED ONCE IV; Start 10/11/24 at 12:42; Stop 10/11/24 at 12:43; Status DC Nitroglycerin 50 mg STK-MED ONCE .ROUTE; Start 10/11/24 at 12:42; Stop 10/11/24 at 12:43; Status DC Lidocaine HCl 20 ml STK-MED ONCE .ROUTE; Start 10/11/24 at 12:43; Stop 10/11/24 at 12:43; Status DC Bivalirudin 250 mg STK-MED ONCE IV; Start 10/11/24 at 13:27; Stop 10/11/24 at 13:27; Status DC Iohexol 35,000 mg STK-MED ONCE IV; Start 10/11/24 at 13:34; Stop 10/11/24 at 13:34; Status DC Clopidogrel Bisulfate 300 mg STK-MED ONCE .ROUTE; Start 10/11/24 at 13:45; Stop 10/11/24 at 13:47; Status DC Clopidogrel Bisulfate 75 mg DAILY PO; Start 10/12/24 at 09:00; Stop 11/11/24 at 08:59 Heparin Sodium/ Dextrose 250 ml @ 0 mls/hr PROTOCOL IV Last administered on 10/11/24at 16:14; Start 10/11/24 at 16:00; Stop 10/12/24 at 19:18; Status DC Dextrose 50 ml AD PRN IV; Start 10/11/24 at 15:00; Stop 11/10/24 at 14:59 Glucagon 1 mg AD PRN IM; Start 10/11/24 at 15:00; Stop 11/10/24 at 14:59 Heparin Sodium/ Dextrose 250 ml @ 0 mls/hr PROTOCOL IV; Start 10/11/24 at 16:00; Stop 10/11/24 at 15:24; Status DC Cefazolin Sodium 2 gm STK-MED ONCE IVPB Last administered on 10/11/24at 08:30; Start 10/11/24 at 08:30; Stop 10/11/24 at 20:01; Status DC Cefazolin Sodium 1 gm STK-MED ONCE IRRIG Last administered on 10/11/24at 09:00; Start 10/11/24 at 09:00; Stop 10/11/24 at 20:01; Status DC Papaverine HCl 60 mg STK-MED ONCE IRRIG Last administered on 10/11/24at 09:00; Start 10/11/24 at 09:00; Stop 10/11/24 at 20:01; Status DC Heparin Sodium (Porcine) 5,000 unit STK-MED ONCE IRRIG Last administered on 10/11/24at 09:00; Start 10/11/24 at 09:00; Stop 10/11/24 at 20:01; Status DC Furosemide 20 mg ONCE ONCE IV; Start 10/12/24 at 02:30; Stop 10/12/24 at 02:31; Status DC Furosemide 20 mg STK-MED ONCE .ROUTE Last administered on 10/12/24at 02:20; Start 10/12/24 at 02:16; Stop 10/12/24 at 02:17; Status DC Albumin Human 250 ml @ As Directed STK-MED ONCE IV Last administered on 10/12/24at 21:19; Start 10/12/24 at 17:49; Stop 10/12/24 at 17:50; Status DC Amiodarone HCl 200 mg DAILY PO Last administered on 10/13/24at 08:05; Start 10/13/24 at 09:00; Stop 11/12/24 at 08:59 Insulin Human Regular INSULIN SLIDING SCAL... ACHS SQ; Start 10/13/24 at 11:30; Stop 11/12/24 at 11:29 GUANACO ORELLANA MD Oct 13, 2024 11:34
--- NOTE | 2024-10-13 12:25 | NUR ---
PT eval on hold as per Arturo. PT team to follow-up.
--- NOTE | 2024-10-13 15:25 | PN ---
"[facility] PROGRESS NOTE Date Patient Seen: Oct 13, 2024 Time of Visit: 15:05 Supervising Physician: [ ] Primary Care Physician: Maine Euceda MD Outpatient Specialists: Inpatient Consults: CV Surgery Dr Gregg, Dr Ravi MD, BIS Attending physician|: Kali Carroll MD PROBLEM LIST: NSTEMI, POA, Multivessel CAD status post CABG x2 on 10/11/24 (Dr Gregg) IABP rt femoral, removed 10/12/24 Cardiomyopathy with EF of 35-40% POA Postoperative AFib with RVR on amiodarone drip and lidocaine drip CKD stage IIIA, POA hyperglycemia in the presence of type 2 diabetes mellitus, POA Hypertension Hypothyroidism Raynaud's phenomenon GI bleed resolved INTERVAL HISTORY: 10/13/24- this is day 2. Post CABG. Patient is awake alert and oriented x3. Balloon pump has been removed yesterday. Left she has tube femur area continues in place.. Patient in reverse Trendelenburg position due to left femoral sheath still in place. Patient continues with the epi at 0.02 micrograms/kilogram per minute with a blood pressure 140/69 heart rate in the 90s respiratory rate of 18 saturating 97 % with 2 L via nasal cannula. Urine output 1.1 L with a chest tube drained 730 mL/24 hours. WBCs 19.3 H&H 8/22.5 platelet count is 91 K. found greater than 50% from yesterday which was 206 K. we will consult machinist apprentice wood and order heparin induced antiplatelet antibody. Sodium 146/2 yesterday potassium of 4.3 creatinine of 1.2 and GFR of 46. Kidneys are improving. Left middle and lower lobe infiltrates seen on chest x-ray. Chest tubes in place. Right IJ central line seen in place. No pneumothorax noted. Patient received 2 units of PRBCs yesterday. With no complications. We will continue to follow CV surgery. REVIEW OF SYSTEMS: 12 point ROS reviewed with patient. Pertinent positives mentioned above. Otherwise negative. PHYSICAL EXAM: GENERAL: Post CABG , critical. HEENT: Sclera non icteric, moist mucosa NECK: Supple, no JVD, trachea midline Rt IJ LUNGS: coarse crackles carlos breath sounds bilaterally. No wheezes HEART: Regular rate and rhythm. Normal S1 and S2, without murmurs , dressing to midsternal area clean dry and intact. Chest tube ABD: Abdomen soft, nontender. Bowel sounds present EXT: No clubbing cyanosis or edema, rt femoral site of IABP bilateral pedal pulses + 1 NEURO: Postoperative still sedated. Vital Signs (last 8hr) Date Time Temp Pulse Resp B/P (MAP) Pulse Ox O2 Delivery O2 Flow Rate FiO2 10/13/24 12:30 94 19 167/66 (99) 96 144/69 (94) 10/13/24 12:15 95 16 169/68 (101) 97 154/66 (95) 10/13/24 12:00 98.2 95 Nasal Cannula 2.0 10/13/24 12:00 98 Nasal Cannula* 2 28 10/13/24 12:00 93 15 146/84 (104) 95 28 139/70 (93) 10/13/24 11:45 94 17 146/81 (102) 96 137/69 (91) 10/13/24 11:34 65 18 N/Cannula Low lpm 24 10/13/24 11:30 92 15 146/79 (101) 96 139/72 (94) 10/13/24 11:15 90 13 148/64 (92) 96 131/65 (87) 10/13/24 11:00 94 17 113/60 (77) 96 129/60 (83) 10/13/24 10:45 92 16 118/62 (80) 97 10/13/24 10:30 91 18 107/68 (81) 96 10/13/24 10:15 94 21 119/58 (78) 95 10/13/24 10:00 90 14 117/56 (76) 96 10/13/24 09:45 90 17 127/55 (79) 95 10/13/24 09:30 91 18 137/52 (80) 96 10/13/24 09:15 92 15 144/55 (84) 93 10/13/24 09:00 95 16 156/58 (90) 94 10/13/24 08:45 92 12 160/53 (88) 98 10/13/24 08:30 93 12 133/89 (104) 99 10/13/24 08:15 89 20 145/61 (89) 97 10/13/24 08:00 97.9 10/13/24 08:00 92 18 157/63 (94) 96 28 10/13/24 08:00 96 Nasal Cannula* 2 28 10/13/24 07:45 89 16 148/58 (88) 98 10/13/24 07:30 88 16 151/61 (91) 97 10/13/24 07:15 89 16 151/57 (88) 94 LABS: Hematology Labs: Test 10/13/24 04:56 10/12/24 04:02 Range/Units White Blood Count 19.3 H 4.8-10.8 K/uL Red Blood Count 2.61 L 4.00-5.50 MIL/uL Hemoglobin 8.0 L 12.0-16.0 g/dL Hematocrit 22.5 L 36-48 % Mean Corpuscular Volume 86.2 79-99 fL Mean Corpuscular Hemoglobin 30.7 27.0-33.0 pg Mean Corpuscular Hemoglobin Concent 35.6 32.0-36.0 g/dL Red Cell Distribution Width 15.6 H 11.0-15.5 % Platelet Count 91 #L 130-400 K/uL Mean Platelet Volume 11.4 H 7.5-10.5 fL Immature Granulocyte % (Auto) 0.5 0-1 % Neutrophils (%) (Auto) 80.5 H 40.0-77.0 % Lymphocytes (%) (Auto) 10.5 L 21.0-51.0 % Monocytes (%) (Auto) 7.8 3.0-13.0 % Eosinophils (%) (Auto) 0.5 0.0-8.0 % Basophils (%) (Auto) 0.2 0.0-5.0 % Neutrophils # (Auto) 15.5 H 1.8-7.7 K/uL Lymphocytes # (Auto) 2.0 1.0-4.8 K/uL Monocytes # (Auto) 1.5 H 0.1-1.0 K/uL Eosinophils # (Auto) 0.09 0.00-0.70 K/uL Basophils # (Auto) 0.04 0.00-0.20 K/uL Absolute Immature Granulocyte (auto 0.09 0-1 K/uL Nucleated Red Blood Cells 0.6 H 0.0-0.19 % White Cell Morphology Comment See comments Chemistry Labs: Test 10/13/24 06:53 10/13/24 04:56 10/12/24 22:36 10/12/24 04:02 Range/Units Whole Blood Glucose 97 70-110 MG/DL Sodium Level 146 H 136-145 mmol/L Potassium Level 4.3 3.5-5.1 mmol/L Chloride Level 110 101-111 mmol/L Carbon Dioxide Level 28 21-32 mmol/L Blood Urea Nitrogen 24 H 7-18 mg/dL Creatinine 1.2 H 0.5-1.0 mg/dL Glomerular Filtration Rate Calc 46 >90 mL/min Random Glucose 104 70-105 mg/dL Total Calcium 8.5 8.5-10.1 mg/dL Magnesium Level 2.30 1.80-2.40 mg/dL Phosphorus Level 5.7 #H 2.5-4.9 mg/dL Ionized Calcium 1.12 L 1.16-1.32 MMOL/L Coagulation Labs: Test 10/12/24 15:45 10/12/24 04:02 Range/Units Activated Partial Thromboplast Time > 139.0 #*H 26.3-35.5 SEC Prothrombin Time 13.6 H 9.6-11.6 SEC Prothromb Time International Ratio 1.24 H 0.85-1.15 DIAGNOSTICS / RADIOLOGY RESULTS: IMAGING REPORT Signed PATIENT: WATSON BONILLA MR#: [id number] : 1945 SEX: F AGE: 79 LOCATION: [facility] ORDER 99 STATUS: ADM IN REPORT#: [id number] SERVICE 0400 REASON: s/p CABG ORDERING PHYSICIAN: NAWAF GREGG MD PROCEDURE: CXR1VW - CHEST 1VW Exam Type: CHEST 1VW Clinical Information: s/p CABG Comparison: None Findings: Pulmonary pattern is as before. No worrisome interval changes have taken place. Impression: Stable exam. DICTATED BY: ZEYAD BARAJAS MD DATE: 10/13/24841 ELECTRONICALLY SIGNED BY: ZEYAD BARAJAS MD DATE: 10/13/[address] surgeon recommendations Follow cardiology recommendations Multimodal pain management Monitoring H&H Monitor chest tube output Chest x-ray in the morning Start SBT's as tolerated IABP managed by CV/Cardiology Monitor ABGs Transfuse if absolutely necessary to keep hemoglobin above 8 Maintain O2 sats greater than 92% Incentive spirometry once extubated Glycemic control with goal of 80-180 Referral for cardiac rehabilitation Speech to eval once patient is extubated monitor electrolytes: K Goal of 4 Magnesium goal of 2 Replace accordingly For now, we are going to continue current management for the patient. She will continue on nasal cannula and we will adjust as necessary. We will follow CTS recommendations regarding the chest tube and IABP. Epinephrine drip per CV surgery protocol We will monitor the oral intake and supplement as necessary. We will monitor the urinary output and follow the I's and O's. We will also monitor the H&H and we will continue to transfuse as necessary. We will replace electrolyte derangements per the protocol. We will monitor the patient's progress and response to management. Further orders per attending MD and hospital course. NEURO: Minimize central acting medications as possible. Fall Precautions. Well lighted room through the day and minimize interruptions through the night to prevent acute delirium. PULMONARY: Supplemental 02 as needed Titrate Fio2 to keep Spo2 > or = 90% DuoNebs and CPT as needed IS hourly while awake for pulmonary hygiene Out of bed to chair as tolerated CARDIOVASCULAR: Follow hemodynamics. Titrate vasopressor to keep MAP >65 or systolic blood pressure >95mmHg DIPS: Epinephrine LINES: Central line Chest tubes Arterial line GI & NUTRITION: Continue nutritional support Aspirations precautions Prokinetic agents and laxatives as needed KIDNEYS & ELECTROLYTES: Strict monitoring of intake and output Daily weights Avoid nephrotoxic agents Monitor electrolytes and replace as needed Goal urine output of 30mL/hr or 0.5mL/kg/hr Urine output: [ ] Fluid Balance: [ ] ENDOCRINE: Maintain blood glucose between 100-180 at all times. Insulin sliding scale for blood glucose management INFECTIOUS DISEASE: Trend temperature. Canales-culture if febrile. Micro: [ ] Antibiotics: [ ] Ancef x3 per CV protocol HEMATOLOGY & COAGULATION: Monitor H&H. Keep Hgb > 7 Transfuse 1 unit of PRBC for Hgb < 7 Transfuse 1 pack of platelets of platelets < 20, 000 Watch for any signs and symptoms of bleeding SKIN: Pressure ulcer prevention per facility protocol Rehab: PT/OT Prophylaxis: GI: Pepcid DVT: Ernst hosjose f Code Status: Full Resuscitation Disposition: ICU Other: Total patient care time exceeds 60 minutes excluding all procedures. Case was discussed and seen with my supervising physician. The above plan was formulated and agreed upon. VJ WEN [facility] Oct 13, 2024 15:25"
[2024-10-13 15:58] LABS: ABG BASE EXCESS 1.8 mmol/L (-2.0-3.0); ABG HCO3 25.7 mmol/L (21.0-28.0); ABG OXYGEN SATURATION 97.1 % (94.0-98.0); ABG PCO2 37 mmHg (32-45); ABG PH 7.459 (7.350-7.450); CARBON MONOXIDE 0.1 % (0.5-1.5); HHb 2.9; PO2, ARTERIAL BG 105.4 mmHg (83.0-108.0); VENT MODE, BG NC (ROOM AIR)
--- NOTE | 2024-10-13 16:51 | PN ---
[facility] PROGRESS NOTE Date of Service: Oct 13, 2024 Time of Service: 16:50 SUBJECTIVE: Ms. Mac is a 79-year-old female that was seen and examined today on 10/05/2024. Patient is a good historian and personal health. Patient states that she came to the emergency department with a chief complaint of bilateral chest wall pain closer to the axilla and pain also radiates to the back. Onset was 9:30 a.m.. Character is described as throbbing. Symptoms are aggravated with palpation and movement. Symptoms are not alleviated with a chiropractic adjustment in fact symptoms became worse after a chiropractic adjustment. There was no alleviating factors Duration of pain is on and off. Patient denies any associated shortness of breath, nausea, vomiting, headache, dizziness. Today in the emergency department CBC unremarkable, troponin 378 (high sensitivity), creatinine 1.1, glucose 208 mg/dL, GFR 51, no urinalysis has been collected or sent to lab. Emergency room initial impression and EKG is that there is new T-wave inversions signifying a change from previous EKGs one week ago at a prior emergency room visit. For this reason emergency room physician recommended patient be admitted with a diagnosis of chest pain. 10/06/24 patient was seen and examined in the ER. She reports that she was doing much better. She denies any chest pain. And she tells me that she came in because she had back pain radiating to bilateral shoulders. She does go to chiropractor to get this resolved but this time it was more persistent 10/07/2024 - patient is seen at bedside in the room ER 5. Patient denies any active chest pain, shortness of breath, nausea, vomiting. 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 Patient feels anxious about the upcoming label printing machinist procedure and question regarding the procedures, all questions were answered. Patient informed about her extremities getting cold and color change to purplish red and about her joint problems and trouble of food getting stuck in the esophagus after swallowing , immunology workup is planned to rule out limited scleroderma . Patient is hemodynamically stable with temperature 98.6, pulse 77, respiratory rate 17, blood pressure 146/77, pulse oximetry 99% on room air. Patient's labs shows WBC 10.4, hemoglobin 13.5, chemistries show sodium 141, potassium 4.3, creatinine 0.8, BUN 14. Patient is currently on metoprolol, pantoprazole, aspirin, heparin, nitroglycerin. Patient will be followed rajiv kuldip, we will follow Cardiology recommendations. 10/08/2024 - patient is seen in room 201, patient denies any symptoms, patient was taken to the label printing machinist yesterday in the results are as follows SELECTIVE CORONARY ANGIOGRAPHY: 1. Left main: The left main bifurcates into the left anterior descending and circumflex coronary artery. Distal Left main with 50% stenosis 2. Left anterior descending: The left anterior descending coronary artery gives rise to diagonal(s) and terminates as the apical recurrent branch. Prox LAD with 90% disease 3. Circumflex: The circumflex coronary artery is noted to provide obtuse marginal(s). Prox Cx with 95% disease 4. Right coronary artery: The right coronary artery is dominant and gives PDA and NIKITA. Prox RCA with 50% disease 5. Left ventricular end-diastolic pressure is elevated. There was no gradient noted upon pullback. Cardiothoracic surgeon is consulted and Dr. Licona has ordered an ultrasound carotid has a preoperative procedure. patient will be continued on medical management until the surgery . Patient is currently hemodynamically stable with temperature 98.2, pulse 81, blood pressure 122/80, respiratory rate 18, saturating at 94% on room air. Patient's labs shows WBC 10.7, hemoglobin 11.9 and chemistries show sodium 142, potassium 3.7, creatinine 0.7. Awaiting further instructions from cardio thoracic surgeon. 10/09/2024 - patient is seen at bedside in room 201. Patient is currently asymptomatic but complained of mild pain yesterday night which is relieved with nitro patch. Patient had black tarry stool episode yesterday and the heparin is put on hold currently she informed that this morning she had a normal colored stool. Patient has been seen by Dr. Licona and he informed about the surgery but has not scheduled it yet. [employer] following the case closely and recommends continuing the medical management until the surgery patient is currently hemodynamically stable with temperature 97.9, pulse 73, respiratory rate 16, blood pressure 113/58 and saturating at 99% on room air. Patient's labs shows WBC 9.6, hemoglobin 11.3 And chemistries show sodium 138, potassium 3.6, creatinine 0.8, BUN 24. Patient will be followed closely. 10/10/2024 - patient is seen at bedside in room 201. Patient is complaining of mild pain in the back which is reproducible on palpation and also mentioned about mild chest pain which presents on bending forward, pain is relieved by sitting straight. Patient requested medication for the back pain and we ordered Flexeril and Ultram p.r.n. heparin is currently on hold troponin is trending down. Heparin to be continued if troponin trending up and will be held with the patient has black tarry stools again. Cardiac thoracic surgery might plan to surgery on the weekend. Patient's vitals temperature 98.1, pulse 60, respiratory rate 20, blood pressure 125/59, saturating at 99% on room air. Patient's labs shows WBC 9.6, hemoglobin 10.7 and chemistries show sodium 139, potassium 4.1, creatinine 0.8, BUN 24 and troponin has trended down from 2346 to 1280. We will be following Cardiology recommendations. We will be monitoring the case closely. 10/11/2024 - patient is seen at bedside in room 212. Patient is seen post CABG, intubated. Cardiology anesthesia informed about the procedure done and about placing 2 grafts for the stenosed vessels - LAD, left circumflex. Also informed about recovery of some heart function due to the return of perfusion . Patient had AFib after the surgery and she was started on amiodarone and lidocaine drip. Patient also had IABP placed to assist with EF. Patient is on other drips like nitro, epinephrine, ventilation settings are respiratory rate 14 , tidal volume 450, FiO2 100%, peep of 5 . Patient currently return to sinus rhythm after the amiodarone bolus. Patient's white count elevated to 29.6 and chemistries show sodium 148, potassium 3.3, magnesium 1.2 , it will be replaced. Patient will be monitored closely. 10/12/24 patient was seen and examined. Case discussed with the RN. Patient was more stable today heart rate of [id number] there may be able to switch amiodarone to p.o.. On a lidocaine infusion at this point 10/12/24 patient is seen and examined for educated discussed with dad and pitted she is status Multivessel CAD status post CABG x2 on 10/11/24 (Dr Licona) REVIEW OF SYSTEMS CONSTITUTIONAL: Denies fevers, chills, or night sweats. No unintentional weight loss reported. NEUROLOGICAL: Denies headache, amaurosis fugax, motor weakness, sensory deficit, vertigo/spinning sensation, gait abnormalities, or tremors. ENT: No hearing loss, otalgia, otorrhea, rhinitis, rhinorrhea, hoarseness, or sore throat. CARDIOVASCULAR: Denies any exertional angina, dyspnea on exertion, orthopnea, paroxysmal nocturnal dyspnea, palpitations, life-threatening arrhythmias, claudication. PULMONARY: Denies any shortness of breath, cough, phlegm/sputum, hemoptysis, pleuritic chest pain. SLEEP: Denies morning headaches, daytime somnolence or napping. Denies d ifficulty falling asleep, staying asleep, waking from sleep. Denies knowledge of snoring. GASTROINTESTINAL: Denies any type of dysphagia to either liquids or solids. Denies nausea, vomiting, pyrosis, early satiety, abdominal pain, diarrhea, constipation, or changes in stool consistency or caliber. Denies coffee-ground emesis, hematemesis, hematochezia, or melanotic stools. GENITOURINARY: Denies frequency, urgency, nocturia, hematuria or incontinence (Storage/Irritative symptoms.) Low urinary stream, straining to void, urinary intermittency or hesitancy, splitting of the voiding stream, terminal dribbling. ENDOCRINOLOGIC: Denies polyuria, polydipsia, polyphagia or heat/cold intolerances. HEMATOLOGIC: Denies thrombophilia/previous clots, or coagulopathy/bleeding disorders. ONCOLOGIC: Denies personal history of malignancy. DERMATOLOGIC: Denies rashes or pruritus. PSYCHIATRIC: Denies any suicidal or homicidal ideation. Denies hallucinations. PHYSICAL EXAM GENERAL APPEARANCE: The patient is awake, alert, and oriented, in no acute cardiopulmonary distress. NEUROLOGICAL: Cranial nerves II-XII grossly intact. Motor is 5/5 in bilateral upper and lower extremities proximal to distal. No sensory deficits. HEENT: Face is symmetric. Pupils are equal and reactive. Extraocular movements are intact. NECK: Supple. No JVD. No thyromegaly. No submental, submandibular, pre- /postauricular, occipital or supraclavicular lymphadenopathy. CHEST: Normal chest expansion. No Telemetry. LUNGS: Absence of any rales, rhonchi or any wheezing. CARDIOVASCULAR: Regular. S1 and S2 normal. No appreciable rubs, murmurs or gallops. ABDOMEN: Soft, nontender, and nondistended. There is no rebound, voluntary guarding, or rigidity. : Deferred. No Rosa. EXTREMITIES: Non-edematous and not cyanotic. No clubbing. Good capillary refill. SKIN: No skin breakdown. Vital Signs (last 8hr) Date Time Temp Pulse Resp B/P (MAP) Pulse Ox O2 Delivery O2 Flow Rate FiO2 10/13/24 16:00 97 Nasal Cannula* 2 28 10/13/24 15:30 92 14 179/66 (103) 98 138/75 (96) 10/13/24 15:15 93 17 142/212 (189) 100 150/63 (92) 10/13/24 15:00 92 14 177/63 (101) 100 144/71 (95) 10/13/24 14:45 91 12 184/65 (104) 100 145/67 (93) 10/13/24 14:30 91 14 175/62 (99) 99 156/69 (98) 10/13/24 14:15 94 17 180/64 (102) 99 140/75 (96) 10/13/24 14:00 93 14 178/64 (102) 98 145/76 (99) 10/13/24 13:45 89 15 176/62 (100) 98 143/72 (95) 10/13/24 13:30 92 16 186/67 (106) 100 142/78 (99) 10/13/24 13:15 94 13 173/63 (99) 96 149/72 (97) 10/13/24 13:00 92 14 168/65 (99) 92 139/68 (91) 10/13/24 12:45 91 17 170/66 (100) 95 148/68 (94) 10/13/24 12:30 94 19 167/66 (99) 96 144/69 (94) 10/13/24 12:15 95 16 169/68 (101) 97 154/66 (95) 10/13/24 12:00 98.2 95 Nasal Cannula 2.0 10/13/24 12:00 98 Nasal Cannula* 2 28 10/13/24 12:00 93 15 146/84 (104) 95 28 139/70 (93) 10/13/24 11:45 94 17 146/81 (102) 96 137/69 (91) 10/13/24 11:34 65 18 N/Cannula Low lpm 24 10/13/24 11:30 92 15 146/79 (101) 96 139/72 (94) 10/13/24 11:15 90 13 148/64 (92) 96 131/65 (87) 10/13/24 11:00 94 17 113/60 (77) 96 129/60 (83) 10/13/24 10:45 92 16 118/62 (80) 97 10/13/24 10:30 91 18 107/68 (81) 96 10/13/24 10:15 94 21 119/58 (78) 95 10/13/24 10:00 90 14 117/56 (76) 96 10/13/24 09:45 90 17 127/55 (79) 95 10/13/24 09:30 91 18 137/52 (80) 96 10/13/24 09:15 92 15 144/55 (84) 93 10/13/24 09:00 95 16 156/58 (90) 94 LABS: Laboratory: Test 10/13/24 15:57 10/13/24 06:53 10/13/24 04:56 10/12/24 22:36 Range/Units Blood Gas Specimen Type Arterial Arterial Blood pH 7.459 H 7.350-7.450 Arterial Blood Partial Pressure CO2 37 32-45 mmHg Arterial Blood Partial Pressure O2 105.4 83.0-108.0 mmHg Arterial Blood HCO3 25.7 21.0-28.0 mmol/L Arterial Blood Oxygen Saturation 97.1 94.0-98.0 % Arterial Blood Base Excess 1.8 -2.0-3.0 mmol/L Hemoglobin (Blood Gas) 8.5 L 12.0-16.0 g/dL Sodium (Blood Gas) 139 136-145 MMOL/L Bedside Potassium (Blood Gas) 3.9 3.4-4.5 MMOL/L Bedside Chloride (Blood Gas) 104 98-107 MMOL/L Bedside Glucose (Blood Gas) 115 H 65-95 MG/DL Bedside Ionized Calcium (Blood Gas) 1.17 1.15-1.33 MMOL/L Bedside Lactic Acid (Blood Gas) 0.76 H 0.36-0.75 MMOL/L Blood Gas Temperature 37.0 35.5-37.0 CELSIUS Blood Gas Flow-by 2.00 0.00-15.00 L/min Blood Gas Vent Mode NC ROOM AIR FiO2 28.0 % Blood Gas Specimen Comment SELENA LAUREN Whole Blood Glucose 97 70-110 MG/DL White Blood Count 19.3 H 4.8-10.8 K/uL Red Blood Count 2.61 L 4.00-5.50 MIL/uL Hemoglobin 8.0 L 12.0-16.0 g/dL Hematocrit 22.5 L 36-48 % Mean Corpuscular Volume 86.2 79-99 fL Mean Corpuscular Hemoglobin 30.7 27.0-33.0 pg Mean Corpuscular Hemoglobin Concent 35.6 32.0-36.0 g/dL Red Cell Distribution Width 15.6 H 11.0-15.5 % Platelet Count 91 #L 130-400 K/uL Mean Platelet Volume 11.4 H 7.5-10.5 fL Immature Granulocyte % (Auto) 0.5 0-1 % Neutrophils (%) (Auto) 80.5 H 40.0-77.0 % Lymphocytes (%) (Auto) 10.5 L 21.0-51.0 % Monocytes (%) (Auto) 7.8 3.0-13.0 % Eosinophils (%) (Auto) 0.5 0.0-8.0 % Basophils (%) (Auto) 0.2 0.0-5.0 % Neutrophils # (Auto) 15.5 H 1.8-7.7 K/uL Lymphocytes # (Auto) 2.0 1.0-4.8 K/uL Monocytes # (Auto) 1.5 H 0.1-1.0 K/uL Eosinophils # (Auto) 0.09 0.00-0.70 K/uL Basophils # (Auto) 0.04 0.00-0.20 K/uL Absolute Immature Granulocyte (auto 0.09 0-1 K/uL Nucleated Red Blood Cells 0.6 H 0.0-0.19 % Sodium Level 146 H 136-145 mmol/L Potassium Level 4.3 3.5-5.1 mmol/L Chloride Level 110 101-111 mmol/L Carbon Dioxide Level 28 21-32 mmol/L Blood Urea Nitrogen 24 H 7-18 mg/dL Creatinine 1.2 H 0.5-1.0 mg/dL Glomerular Filtration Rate Calc 46 >90 mL/min Random Glucose 104 70-105 mg/dL Total Calcium 8.5 8.5-10.1 mg/dL Magnesium Level 2.30 1.80-2.40 mg/dL Phosphorus Level 5.7 #H 2.5-4.9 mg/dL Test 10/12/24 15:45 10/12/24 04:02 10/11/24 23:39 Range/Units Activated Partial Thromboplast Time > 139.0 #*H 26.3-35.5 SEC White Cell Morphology Comment See comments Prothrombin Time 13.6 H 9.6-11.6 SEC Prothromb Time International Ratio 1.24 H 0.85-1.15 Ionized Calcium 1.12 L 1.16-1.32 MMOL/L Blood Gas Respiration Rate 4.0 min. Blood Gas Tidal Volume 450 ml Blood Gas PEEP 5 cm H2O Current Medications Medications (Trade) Dose Ordered Sig/Rashad Route PRN Reason Start Time Stop Time Status Last Admin Dose Admin Acetaminophen (TYLenol 325MG TAB) 650 mg Q4H PRN PO Temp >38.3C(AFTER EXTUBATION) 10/11/24 09:00 11/10/24 08:59 Acetaminophen (TYLenol 325MG TAB) 650 mg Q6H PRN PO MILD PAIN (1-3) 10/11/24 09:00 11/10/24 08:59 Acetaminophen (TYLenol 325MG TAB) 650 mg Q6H PRN PO TEMPERATURE GREATER THAN 101.5 10/05/24 23:30 11/04/24 23:29 10/10/24 06:06 650 MG Acetaminophen (TYLenol 650MG SUPPOSITORY) 650 mg Q4H PRN RC Temp >38.3C WHILE INTUBATED 10/11/24 09:00 11/10/24 08:59 Acetaminophen (acetaMINOPHEN) 1,000 mg Q6H6 IV 10/11/24 12:00 10/12/24 11:59 DC 10/12/24 05:06 1,000 MG Albumin Human 250 ml @ 0 mls/hr AD PRN IV IF HEMODYNAMICALLY UNSTABLE 10/11/24 09:00 10/11/24 23:20 DC 10/11/24 23:20 250 MLS/HR Aminocaproic Acid 77801 mg/Sodium Chloride 310 ml @ 25 mls/hr AD IV 10/11/24 09:00 10/11/24 08:54 DC Aminocaproic Acid 68624 mg/Sodium Chloride 480 ml @ 0 mls/hr AD PRN IV BLEEDING CONTROL 10/11/24 07:00 11/10/24 06:59 Amiodarone HCl (pacERONE 200MG) 200 mg DAILY PO 10/13/24 09:00 11/12/24 08:59 10/13/24 08:05 200 MG Amiodarone HCl 150 mg/Dextrose 103 ml @ 618 mls/hr ONCE IV 10/11/24 12:00 10/11/24 12:09 DC 10/11/24 11:57 618 MLS/HR Amiodarone HCl 360 mg/Dextrose 207.2 ml @ 33.3 mls/hr AD IV 10/11/24 12:00 10/12/24 19:18 DC 10/11/24 12:04 33.3 MLS/HR Amiodarone HCl 540 mg/Dextrose 310.8 ml @ 16.7 mls/hr [id number] IV 10/11/24 12:00 11/10/24 11:59 10/11/24 18:20 16.7 MLS/HR Aspirin (Aspirin 81mg Chew Tab) 81 mg DAILY PO 10/06/24 09:00 11/05/24 08:59 10/13/24 08:06 81 MG Atorvastatin Calcium (LIPItor 20MG) 20 mg HS PO 10/08/24 21:00 10/11/24 08:37 DC 10/10/24 20:55 20 MG Atorvastatin Calcium (LIPItor 20MG) 40 mg HS PO 10/11/24 21:00 11/10/24 20:59 10/12/24 21:15 40 MG Calcium Gluconate 1 gm/Sodium Chloride 60 ml @ 200 mls/hr AD PRN IV HYPOCALCEMIA 10/11/24 09:00 11/10/24 08:59 10/13/24 11:20 200 MLS/HR Cefazolin Sodium (Ancef) 2 gm ONCALL PRN IVP SURGERY 10/10/24 12:00 10/12/24 11:59 DC Cefazolin Sodium (Ancef) 2 gm Q8H IVPB 10/11/24 14:00 10/12/24 06:01 DC 10/12/24 06:21 2 GM Clopidogrel Bisulfate (plaVIX 75MG) 75 mg DAILY PO 10/12/24 09:00 11/11/24 08:59 10/13/24 16:08 75 MG Cyclobenzaprine HCl (Cyclobenzaprine HCl) 5 mg TID PRN PO MUSCLE SPASMS 10/10/24 14:30 10/11/24 08:37 DC Dexmedetomidine/ Sodium Chloride (PRECEdex 400MCG/ 100ML-NS) 400 mcg PROTOCOL IV 10/11/24 09:00 10/12/24 08:59 DC Dextrose (D50w) 50 ml AD PRN IV HYPOGLYCEMIA PROTOCOL 10/11/24 09:00 10/13/24 07:52 DC Dextrose (D50w) 50 ml AD PRN IV HYPOGLYCEMIA PROTOCOL 10/11/24 15:00 11/10/24 14:59 Docusate Sodium (COLace 100MG CAP) 100 mg BID PO 10/12/24 09:00 11/11/24 08:59 10/13/24 08:06 100 MG Enoxaparin Sodium (Lovenox) 30 mg DAILY SQ 10/14/24 09:00 10/11/24 14:00 DC Epinephrine HCl 10 mg/Sodium Chloride 250 ml @ 7.716 mls/ hr AD PRN IV POST-OP CARDIOVASCULAR ORDERS 10/11/24 09:00 10/16/24 08:59 Epinephrine HCl 10 mg/Sodium Chloride 250 ml @ 0 mls/hr AD PRN IV TITRATE 10/11/24 07:00 10/11/24 09:01 DC Famotidine (Pepcid 20mg Vial) 20 mg BID IV 10/11/24 09:00 10/11/24 09:03 DC Famotidine (Pepcid 20mg Vial) 20 mg Q24H IV 10/11/24 09:30 11/10/24 08:59 10/13/24 08:07 20 MG Furosemide (LASix 20MG TAB) 20 mg Q12H PO 10/13/24 09:00 11/12/24 08:59 10/13/24 08:06 20 MG Furosemide (LASix 20MG VIAL) 20 mg Q12H IV 10/12/24 09:00 10/13/24 08:59 DC 10/12/24 21:18 20 MG Glucagon (Glucagon 1mg Kit) 1 mg AD PRN IM HYPOGLYCEMIA PROTOCOL 10/11/24 09:00 10/13/24 07:52 DC Glucagon (Glucagon 1mg Kit) 1 mg AD PRN IM HYPOGLYCEMIA PROTOCOL 10/11/24 15:00 11/10/24 14:59 Heparin Sodium (Porcine) (HEParin 5,000 UNIT VIAL) *calculation based on ACTUAL B... AD PRN IV HEPARIN PROTOCOL 10/06/24 07:30 10/10/24 08:27 DC 10/06/24 07:19 3,877.5 UNIT Heparin Sodium (Porcine) (HEParin 5,000 UNIT VIAL) 5,000 unit BID SQ 10/06/24 09:00 10/06/24 06:29 DC Heparin Sodium/ Dextrose 250 ml @ 0 mls/hr PROTOCOL IV 10/11/24 16:00 10/11/24 15:24 DC Heparin Sodium/ Dextrose 250 ml @ 0 mls/hr PROTOCOL IV 10/11/24 16:00 10/12/24 19:18 DC 10/11/24 16:14 8.7 MLS/HR Heparin Sodium/ Dextrose 250 ml @ 0 mls/hr Q6H IV 10/10/24 09:00 10/10/24 08:26 DC Heparin Sodium/ Dextrose 250 ml @ 0 mls/hr Q6H IV 10/06/24 07:30 10/10/24 08:17 DC 10/08/24 14:20 0 MLS/HR Insulin Human Regular (humuLIN R 100 UNIT/ML 3ML) INSULIN SLIDING SCAL... ACHS SQ 10/13/24 11:30 11/12/24 11:29 Insulin Human Regular (humuLIN R 100 UNIT/ML 3ML) INSULIN SLIDING SCAL... ACHS SQ 10/06/24 07:30 10/11/24 08:37 DC Insulin Human Regular 100 unit/ Sodium Chloride 100 ml @ 0 mls/hr AD IV 10/11/24 09:00 10/13/24 08:59 DC 10/11/24 23:19 3 MLS/HR Lactulose (Constulose 20gm/ 30ml Udcup) 20 gm BID PRN PO CONSTIPATION 10/11/24 09:00 11/10/24 08:59 Levothyroxine Sodium (SYNTHroid 100MCG TAB) 100 mcg SYN PO 10/09/24 06:30 11/08/24 06:29 10/13/24 06:11 100 MCG Lidocaine HCl/ Dextrose 250 ml @ 0 mls/hr AD PRN IV TITRATE 10/11/24 11:00 10/12/24 19:18 DC 10/12/24 14:44 7.5 MLS/HR Magnesium Hydroxide (Milk Of Magnesium 30ml) 30 ml DAILY PRN PO CONSTIPATION 10/11/24 09:00 11/10/24 08:59 Magnesium Sulfate 50 ml @ 12.5 mls/hr AD PRN IV MAG LEVEL LESS THAN 2.0 10/11/24 09:00 11/10/24 08:59 10/12/24 23:52 12.5 MLS/HR Magnesium Sulfate 50 ml @ 0 mls/hr PROTOCOL PRN IV h 10/05/24 23:30 10/11/24 08:37 DC Metoprolol Tartrate (loprESSOR) 12.5 mg BID PO 10/07/24 09:00 10/11/24 08:37 DC 10/11/24 06:32 12.5 MG Metoprolol Tartrate (loprESSOR) 12.5 mg BID PO 10/13/24 09:00 11/12/24 08:59 Morphine Sulfate (morPHINE 2MG SYG) 0.5 mg Q2H PRN IV MODERATE PAIN (4-6) 10/11/24 09:00 10/12/24 08:59 DC Morphine Sulfate (morPHINE 2MG SYG) 1 mg Q2H PRN IV SEVERE PAIN (7-10) 10/11/24 09:00 10/18/24 08:59 Nitroglycerin (Nitroglycerin 1gm Oint) 0.5 inch Q8H TD 10/05/24 23:30 10/11/24 08:37 DC 10/10/24 22:37 0.5 INCH Nitroglycerin (Nitrostat) 0.4 mg AD PRN SL CHEST PAIN 10/05/24 22:30 10/11/24 08:37 DC Nitroglycerin/ Dextrose 0 ml @ 0 mls/hr AD IV 10/11/24 09:00 10/14/24 08:59 10/11/24 12:00 0 MLS/HR Norepinephrine Bitartrate 250 ml @ 0 mls/hr AD PRN IV TITRATE 10/11/24 07:00 10/11/24 09:03 DC Norepinephrine Bitartrate 250 ml @ 0 mls/hr AD PRN IV POST-OP CARDIOVASCULAR ORDERS 10/11/24 09:00 11/10/24 08:59 10/12/24 08:08 11.3 MLS/HR Ondansetron HCl (zoFRAN 4MG INJ) 4 mg Q6H PRN IV NAUSEA/VOMITING 10/11/24 09:00 11/10/24 08:59 10/13/24 08:20 4 MG Ondansetron HCl (zoFRAN 4MG INJ) 4 mg Q6H PRN IV NAUSEA/VOMITING 10/05/24 23:30 10/11/24 08:37 DC Pantoprazole Sodium (PROTonix 40MG TAB) 40 mg DAILY PO 10/06/24 09:00 10/11/24 08:37 DC 10/10/24 09:00 40 MG Pharmacy Profile Note (Pharmacy Communication) 1 each ONCE MISC 10/07/24 17:30 10/08/24 07:12 DC 10/07/24 23:37 1 EACH Potassium Phosphate 250 ml @ 42 mls/hr AD PRN IV LOW PHOS LEVEL 10/11/24 09:00 11/10/24 08:59 Potassium Chloride 100 ml @ 100 mls/hr AD PRN IV HYPOKALEMIA 10/11/24 09:00 11/10/24 08:59 10/13/24 16:11 100 MLS/HR Potassium Chloride 100 ml @ 100 mls/hr AD PRN IV POTASSIUM PROTOCOL 10/05/24 23:30 10/11/24 08:37 DC Potassium Chloride (K-Dur/Klor-Con 20meq) 20 meq AD PRN PO POTASSIUM PROTOCOL 10/05/24 23:30 10/11/24 08:37 DC Potassium Chloride (KCl 10% Elixir 20meq/15ml) 20 meq AD PRN PO POTASSIUM PROTOCOL 10/05/24 23:30 10/11/24 08:37 DC 10/09/24 21:00 20 MEQ Propofol 100 ml @ 0 mls/hr AD PRN IV SEDATION 10/11/24 09:00 10/15/24 08:59 Sodium Bicarbonate (Sodium Bicarb 50meq 50ml Vial) 50 meq AD PRN IV OTHER[SEE DOSING INSTRUCTIONS] 10/11/24 09:00 10/14/24 08:59 10/11/24 18:14 50 MEQ Sodium Chloride 500 ml @ 0 mls/hr AD IV 10/11/24 09:00 11/10/24 08:59 Sodium Chloride 500 ml @ 0 mls/hr Q0M IV 10/06/24 21:30 10/11/24 08:37 DC Sodium Chloride 1,000 ml @ 10 mls/hr ONCE IV 10/11/24 09:00 10/11/24 08:52 DC Sodium Chloride (NS Flush 10ml) 10 ml Q8H IVP 10/07/24 17:30 11/06/24 17:29 10/12/24 08:42 10 ML Sodium Chloride (NS Flush 10ml) 10 ml Q8H PRN IVP IV LINE FLUSH 10/11/24 09:00 11/10/24 08:59 Tramadol HCl (UltRAM) 25 mg Q6H PRN PO MODERATE PAIN (4-6) 10/10/24 14:30 10/11/24 08:37 DC 10/10/24 16:13 25 MG Tramadol HCl (UltRAM) 25 mg Q6H PRN PO MODERATE PAIN (4-6) 10/11/24 09:00 10/16/24 08:59 Tramadol HCl (UltRAM) 50 mg Q6H PRN PO SEVERE PAIN (7-10) 10/11/24 09:00 10/16/24 08:59 Vasopressin 40 units/Sodium Chloride 40 ml @ 0 mls/hr PROTOCOL IV 10/11/24 11:00 11/10/24 10:59 DIAGNOSTICS / RADIOLOGY: [ ] ASSESSMENT: Chest pain, POA Abnormal EKG, POA Elevated troponin, POA CKD stage IIIA, POA uncontrolled Diabetes mellitius type2, POA Hypertension POA Hypothyroidism POA Raynaud's phenomenon POA GI bleed resolved NSTEMI POA Status post CABG x2 on 10/11/2024 Postoperative AFib with RVR clinically insignificant PLAN: Follow Cardiothoracic recommendations and Cardiology recommendations Maintain electrolyte balance Incentive spirometry once extubated Follow hemoglobin closely and transfuse if it goes under 8 JOSEY JACOME MD Oct 13, 2024 16:51
[2024-10-14] VITALS (82 sets, daily range): BP systolic 84–156; BP diastolic 29–85; PULSE 70–93; RESP 6–28; TEMP 97.2–99.3; O2SAT 96–99
[2024-10-14 05:17] LABS: BASOPHILS # (AUTO) 0.02 K/uL (0.00-0.20); BASOPHILS % (AUTO) 0.1 % (0.0-5.0); EOSINOPHILS # (AUTO) 0.01 K/uL (0.00-0.70); EOSINOPHILS % (AUTO) 0.1 % (0.0-8.0); HEMATOCRIT 22.1 % (36-48); IMMATURE GRANULOCYTE ABSOLUTE 0.14 K/uL (0-1); LYMPHOCYTES # (AUTO) 1.4 K/uL (1.0-4.8); LYMPHOCYTES % (AUTO) 8.4 % (21.0-51.0); MEAN CORPUSCULAR VOLUME 90.9 fL (79-99); MONOCYTES % (AUTO) 5.7 % (3.0-13.0); NEUTROPHILS # (AUTO) 14.1 K/uL (1.8-7.7); NEUTROPHILS % (AUTO) 84.9 % (40.0-77.0); NUCLEATED RED BLOOD CELLS 1.3 % (0.0-0.19); PLATELET COUNT (AUTO) 107 K/uL (130-400); RED BLOOD CELL COUNT(AUTO) 2.43 MIL/uL (4.00-5.50); RED CELL DISTRIBUTION WIDTH 15.3 % (11.0-15.5); WHITE BLOOD COUNT (AUTO) 16.6 K/uL (4.8-10.8)
[2024-10-14 05:50] LABS: CREATININE 0.8 mg/dL (0.5-1.0); POTASSIUM 3.7 mmol/L (3.5-5.1)
[2024-10-14] MEDS: traMADol HCL 50 MG TABLET PO PRN (08:29)
[2024-10-14] MEDS ORDERED: ENOXAPARIN SODIUM 30 MG/0.3 ML SQ SCH (09:00)
--- NOTE | 2024-10-14 10:00 | HMCIMG ---
CHEST 1VW REASON: s/p CABG COMPARISON: 10/13/2024 FINDINGS: There is mild cardiomegaly, unchanged. Lungs are clear. There is no vascular congestion or pleural effusion. Left chest tube remains in place, there is no pneumothorax. IMPRESSION: 1. Improving postop chest.
--- NOTE | 2024-10-14 10:09 | PN ---
CARDIOLOGY Reason for consult: NSTEMI HPI/story at presentation: This is a pleasant 79-year-old female with past medical history as below presents for chest discomfort. Patient was having mostly back pain and bilateral shoulder pain that was present yesterday morning and then subsequently, was in the ER for further evaluation and had significant elevated troponins therefore, cardiology was consulted for further evaluation and management Subjective: 10/06/2024 no active cardiac complaints 10/07/2024 no chest pain 10/08/2024 no further symptoms 10/09/2024 no complaints 10/10/2024 no complaints 10/11/2024 intubated 10/13/2024 no complaints 10/14/2024 no complaints Past medical history: See below Allergies, Meds See chart Review of systems intubated 10/11/2024 Vitals see chart PHYSICAL EXAMINATION GENERAL: intubated 10/11/2024 HEENT: Nonicteric sclerae, non traumatic HEART: Regular rate and rhythm with no murmurs LUNGS:intubated 10/11/2024 ABDOMEN: No acute issues, non tender GENITAL, RECTAL: deferred SKIN: No rash NEUROLOGIC: intubated 10/11/2024 EXTREMITIES: No edema ASSESSMENT NSTEMI,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 Plan for cardiac catheterization tomorrow to further evaluate coronaries Echo pending. risk-benefit discussed extensively and patient wants to proceed. 10/07/2024 Cardiac catheterization today for further evaluation of non-STEMI. Risk-benefit discussed. Primary team addressing possible scleroderma given issues with dysphagia. No active chest pain at this time echo with EF of 35- 40%, on metoprolol aspirin - add statin 10/08/2024 No active cardiac complaints at this time, no further issues with chest or back pain, awaiting final decision from CV surgery regarding surgery. Continue maximal medical therapy. 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 There is a question of GI bleeding with dark stools. Will get an occult blood and hold heparin for now. On atorvastatin beta-estefania and aspirin, continue. Hemoglobin stable. Carotid duplex was negative. Seen and examined 10/04/2024 at around 5 PM 10/09/2024 Was previously evaluated CV surgery, timing of surgery to be determined. On statin beta-estefania aspirin. Labs okay, occult blood has been ordered and is still pending. No further issues with dark stools per report. Currently off anticoagulation. Seen and examined 10/09/2024 at around 1730 10/10/2024 Had an episode of chest discomfort/upper back pain, managed conservatively at this time, heparin was not started. Troponins are trending down. Potential plans for surgery tomorrow. Patient however, thinks this might be related to spinal issues. Seen and examined 10/10/2024 at around 0900 10/11/2024 I was called in the late morning today by Dr. العراقي with concerns of ST elevations after surgery. Patient was taken emergently to cardiac catheterization and underwent intervention to the LAD. Patient had an occluded WILSON. Postprocedure, patient was doing well with hemodynamic stability and improvement in pressor requirements. Potential plans for extubation also noted. Seen and examined 10/11/2024 multiple times 10/12/2024 Extubated, blood pressures are doing okay off pressors. Currently, plan is to get off the balloon pump and then reevaluate. On antiplatelet therapy, s/p PCI to the LAD yesterday in the setting of NSTEMI. Bypass. Recovering well. Family at bedside, questions answered. Plan to switch amiodarone to p.o., agree with stopping lidocaine. Anemia will need to be addressed, transfuse as needed. Seen and examined 10/12/2024 at around 1700 10/13/2024 Doing well, hemodynamic stable, not any pressors, had issues with hematoma from the balloon pump yesterday and did receive 1 unit of transfusion. Otherwise, doing well, states that she is on the left 24, not very ambulatory at this time. Asking to be able to get up hopefully, this can be accomplished tomorrow or day after once the left-sided sheath is out. Appreciate CV surgery, critical care. Currently on Plavix in spite of thrombocytopenia given recent PCI to the LAD. On Amio beta-estefania Lasix Plavix atorvastatin. No longer on lidocaine. Watch hemoglobin. Renal function slightly elevated as well but this is better than yesterday. 10/14/2024 Was on nitroglycerin during the mornings but blood pressures are now better off nitro. Otherwise, doing well. No active cardiac complaints at this time. Appreciate CV surgery. Critical care. Having issues with diarrhea, small, will need to be watched. Sheath to be removed later today hemoglobin being replaced oncology on board anemia. X-ray with improvement. Currently on metoprolol Lasix Plavix statin aspirin amiodarone from a cardiac standpoint. Seen and examined at around 10 AM ATTESTATION I was involved substantially in the care of this patient Number and complexity of problems addressed: 1 acute illness taht is a threat to life or bodily function Amount and or complexity of data Review of prior external note(s) from each unique source: 2+ Ordering of each unique test : 0 Review of the result(s) of each unique test: 2+ Assessment requiring an independent historian(s): No Independent interpretation of test performed by another MD/QHCP/appropriate source (not separately reported) : No Discussion of management or test interpretation with external MD/QHCP/appropriate source (not separately reported) : yes, CVT surgery Risk status (cardiac, billing related): high Vitals/Labs Vital Signs Date Time Temp Pulse Resp B/P (MAP) Pulse Ox O2 Delivery O2 Flow Rate FiO2 10/14/24 09:15 75 16 117/49 (71) 98 119/60 (79) 10/14/24 08:30 Nasal Cannula* 2 28 10/14/24 08:07 99.3 Laboratory Tests 10/14/24 04:51 Medications Current Medications Morphine Sulfate 2 mg ONCE ONCE IVP Last administered on 10/05/24at 22:22; Start 10/05/24 at 22:30; Stop 10/05/24 at 22:31; Status DC Ketorolac Tromethamine 15 mg ONCE ONCE IV Last administered on 10/05/24at 23:34; Start 10/05/24 at 22:30; Stop 10/05/24 at 22:31; Status DC Nitroglycerin 0.4 mg AD PRN SL; Start 10/05/24 at 22:30; Stop 10/11/24 at 08:37; Status DC Aspirin 162 mg ONCE ONCE PO Last administered on 10/05/24at 23:32; Start 10/05/24 at 23:30; Stop 10/05/24 at 23:31; Status DC Aspirin 81 mg DAILY PO Last administered on 10/14/24at 08:25; Start 10/06/24 at 09:00; Stop 11/05/24 at 08:59 Nitroglycerin 0.5 inch Q8H TD Last administered on 10/10/24at 22:37; Start 10/05/24 at 23:30; Stop 10/11/24 at 08:37; Status DC Ondansetron HCl 4 mg Q6H PRN IV; Start 10/05/24 at 23:30; Stop 10/11/24 at 08:37; Status DC Heparin Sodium (Porcine) 5,000 unit BID SQ; Start 10/06/24 at 09:00; Stop 10/06/24 at 06:29; Status DC Pantoprazole Sodium 40 mg DAILY PO Last administered on 10/10/24at 09:00; Start 10/06/24 at 09:00; Stop 10/11/24 at 08:37; Status DC Acetaminophen 650 mg Q6H PRN PO Last administered on 10/10/24at 06:06; Start 10/05/24 at 23:30; Stop 10/14/24 at 09:10; Status DC Insulin Human Regular INSULIN SLIDING SCAL... ACHS SQ; Start 10/06/24 at 07:30; Stop 10/11/24 at 08:37; Status DC Potassium Chloride 100 ml @ 100 mls/hr AD PRN IV; Start 10/05/24 at 23:30; Stop 10/11/24 at 08:37; Status DC Potassium Chloride 20 meq AD PRN PO Last administered on 10/09/24at 21:00; Start 10/05/24 at 23:30; Stop 10/11/24 at 08:37; Status DC Potassium Chloride 20 meq AD PRN PO; Start 10/05/24 at 23:30; Stop 10/11/24 at 08:37; Status DC Magnesium Sulfate 50 ml @ 0 mls/hr PROTOCOL PRN IV; Start 10/05/24 at 23:30; Stop 10/11/24 at 08:37; Status DC Heparin Sodium (Porcine) *calculation based on ACTUAL B... AD PRN IV Last administered on 10/06/24at 07:19; Start 10/06/24 at 07:30; Stop 10/10/24 at 08:27; Status DC Heparin Sodium/ Dextrose 250 ml @ 0 mls/hr Q6H IV Last administered on 10/08/24at 14:20; Start 10/06/24 at 07:30; Stop 10/10/24 at 08:17; Status DC Atorvastatin Calcium 40 mg ONCE ONCE PO Last administered on 10/06/24at 21:22; Start 10/06/24 at 21:30; Stop 10/06/24 at 21:31; Status DC Clopidogrel Bisulfate 75 mg ONCE ONCE PO Last administered on 10/06/24at 21:22; Start 10/06/24 at 21:30; Stop 10/06/24 at 21:31; Status DC Metoprolol Tartrate 12.5 mg BID PO Last administered on 10/11/24at 06:32; Start 10/07/24 at 09:00; Stop 10/11/24 at 08:37; Status DC Sodium Chloride 500 ml @ 0 mls/hr Q0M IV; Start 10/06/24 at 21:30; Stop 10/11/24 at 08:37; Status DC Lidocaine HCl 20 ml STK-MED ONCE .ROUTE; Start 10/07/24 at 16:23; Stop 10/07/24 at 16:23; Status DC Iohexol 75 ml STK-MED ONCE IV; Start 10/07/24 at 16:23; Stop 10/07/24 at 16:23; Status DC Heparin Sodium (Porcine) 10,000 unit STK-MED ONCE .ROUTE; Start 10/07/24 at 16:23; Stop 10/07/24 at 16:23; Status DC Heparin Sodium/ Sodium Chloride 1,000 ml @ As Directed STK-MED ONCE IV; Start 10/07/24 at 16:23; Stop 10/07/24 at 16:23; Status DC Nitroglycerin 50 mg STK-MED ONCE .ROUTE; Start 10/07/24 at 16:23; Stop 10/07/24 at 16:23; Status DC Fentanyl Citrate 100 mcg STK-MED ONCE .ROUTE; Start 10/07/24 at 16:24; Stop 10/07/24 at 16:24; Status DC Midazolam HCl 2 mg STK-MED ONCE .ROUTE; Start 10/07/24 at 16:24; Stop 10/07/24 at 16:24; Status DC Nicardipine HCl 25 mg STK-MED ONCE IV; Start 10/07/24 at 16:24; Stop 10/07/24 at 16:24; Status DC Sodium Chloride 10 ml Q8H IVP Last administered on 10/14/24at 08:26; Start 10/07/24 at 17:30; Stop 11/06/24 at 17:29 Pharmacy Profile Note 1 each ONCE MISC Last administered on 10/07/24at 23:37; Start 10/07/24 at 17:30; Stop 10/08/24 at 07:12; Status DC Atorvastatin Calcium 20 mg HS PO Last administered on 10/10/24at 20:55; Start 10/08/24 at 21:00; Stop 10/11/24 at 08:37; Status DC Levothyroxine Sodium 100 mcg SYN PO Last administered on 10/14/24at 06:54; Start 10/09/24 at 06:30; Stop 11/08/24 at 06:29 Heparin Sodium/ Dextrose 250 ml @ 0 mls/hr Q6H IV; Start 10/10/24 at 09:00; Stop 10/10/24 at 08:26; Status DC Cefazolin Sodium 2 gm ONCALL PRN IVP; Start 10/10/24 at 12:00; Stop 10/12/24 at 11:59; Status DC Tramadol HCl 25 mg Q6H PRN PO Last administered on 10/10/24at 16:13; Start 10/10/24 at 14:30; Stop 10/11/24 at 08:37; Status DC Cyclobenzaprine HCl 5 mg TID PRN PO; Start 10/10/24 at 14:30; Stop 10/11/24 at 08:37; Status DC Epinephrine HCl 10 mg/Sodium Chloride 250 ml @ 0 mls/hr AD PRN IV; Start 10/11/24 at 07:00; Stop 10/11/24 at 09:01; Status DC Norepinephrine Bitartrate 250 ml @ 0 mls/hr AD PRN IV; Start 10/11/24 at 07:00; Stop 10/11/24 at 09:03; Status DC Aminocaproic Acid 47246 mg/Sodium Chloride 480 ml @ 0 mls/hr AD PRN IV; Start 10/11/24 at 07:00; Stop 11/10/24 at 06:59 Cefazolin Sodium 1 gm STK-MED ONCE .ROUTE; Start 10/11/24 at 06:50; Stop 10/11/24 at 06:51; Status DC Heparin Sodium/ Sodium Chloride 500 ml @ As Directed STK-MED ONCE IV; Start 10/11/24 at 06:51; Stop 10/11/24 at 06:51; Status DC Papaverine HCl 60 mg STK-MED ONCE .ROUTE; Start 10/11/24 at 06:51; Stop 10/11/24 at 06:51; Status DC Cefazolin Sodium 2 gm STK-MED ONCE .ROUTE; Start 10/11/24 at 06:53; Stop 10/11/24 at 06:54; Status DC Sodium Chloride 1,000 ml @ As Directed STK-MED ONCE IV; Start 10/11/24 at 06:53; Stop 10/11/24 at 06:54; Status DC Protamine Sulfate 250 mg STK-MED ONCE IV; Start 10/11/24 at 07:56; Stop 10/11/24 at 07:56; Status DC Lidocaine HCl 100 mg STK-MED ONCE .ROUTE; Start 10/11/24 at 07:56; Stop 10/11/24 at 07:56; Status DC Heparin Sodium (Porcine) 10,000 unit STK-MED ONCE .ROUTE; Start 10/11/24 at 07:56; Stop 10/11/24 at 07:56; Status DC Epinephrine HCl 1 mg STK-MED ONCE .ROUTE; Start 10/11/24 at 07:56; Stop 10/11/24 at 07:56; Status DC Sodium Bicarbonate 200 ml @ As Directed STK-MED ONCE .ROUTE; Start 10/11/24 at 07:56; Stop 10/11/24 at 07:56; Status DC Norepinephrine Bitartrate 4 mg STK-MED ONCE IV; Start 10/11/24 at 07:56; Stop 10/11/24 at 07:56; Status DC Fentanyl Citrate 1,000 mcg STK-MED ONCE IJ; Start 10/11/24 at 07:56; Stop 10/11/24 at 07:57; Status DC Propofol 200 mg STK-MED ONCE IV; Start 10/11/24 at 07:57; Stop 10/11/24 at 07:57; Status DC Midazolam HCl 2 mg STK-MED ONCE .ROUTE; Start 10/11/24 at 07:57; Stop 10/11/24 at 07:57; Status DC Rocuronium [place] 50 mg STK-MED ONCE .ROUTE; Start 10/11/24 at 07:57; Stop 10/11/24 at 07:57; Status DC Ketamine HCl 50 mg STK-MED ONCE .ROUTE; Start 10/11/24 at 07:57; Stop 10/11/24 at 07:58; Status DC Nitroglycerin/ Dextrose 1 ml @ As Directed STK-MED ONCE .ROUTE; Start 10/11/24 at 08:27; Stop 10/11/24 at 08:27; Status DC Atorvastatin Calcium 40 mg HS PO Last administered on 10/13/24at 20:32; Start 10/11/24 at 21:00; Stop 10/14/24 at 09:11; Status DC Acetaminophen 1,000 mg Q6H6 IV Last administered on 10/12/24at 05:06; Start 10/11/24 at 12:00; Stop 10/12/24 at 11:59; Status DC Aspirin 81 mg ONCE ONCE NG; Start 10/11/24 at 12:00; Stop 10/11/24 at 08:42; Status DC Docusate Sodium 100 mg BID PO Last administered on 10/14/24at 08:24; Start 10/12/24 at 09:00; Stop 11/11/24 at 08:59 Lactulose 20 gm BID PRN PO; Start 10/11/24 at 09:00; Stop 11/10/24 at 08:59 Furosemide 20 mg Q12H PO Last administered on 10/14/24at 08:25; Start 10/13/24 at 09:00; Stop 11/12/24 at 08:59 Furosemide 20 mg Q12H IV Last administered on 10/12/24at 21:18; Start 10/12/24 at 09:00; Stop 10/13/24 at 08:59; Status DC Enoxaparin Sodium 30 mg DAILY SQ; Start 10/14/24 at 09:00; Stop 10/11/24 at 14:00; Status DC Metoprolol Tartrate 12.5 mg BID PO Last administered on 10/14/24at 08:24; Start 10/13/24 at 09:00; Stop 11/12/24 at 08:59 Magnesium Hydroxide 30 ml DAILY PRN PO; Start 10/11/24 at 09:00; Stop 11/10/24 at 08:59 Dexmedetomidine/ Sodium Chloride 400 mcg PROTOCOL IV; Start 10/11/24 at 09:00; Stop 10/12/24 at 08:59; Status DC Acetaminophen 650 mg Q6H PRN PO; Start 10/11/24 at 09:00; Stop 11/10/24 at 08:59 Sodium Chloride 1,000 ml @ 10 mls/hr ONCE IV; Start 10/11/24 at 09:00; Stop 10/11/24 at 08:52; Status DC Sodium Chloride 10 ml Q8H PRN IVP; Start 10/11/24 at 09:00; Stop 11/10/24 at 08:59 Morphine Sulfate 0.5 mg Q2H PRN IV; Start 10/11/24 at 09:00; Stop 10/12/24 at 08:59; Status DC Morphine Sulfate 1 mg Q2H PRN IV; Start 10/11/24 at 09:00; Stop 10/18/24 at 08:59 Acetaminophen 650 mg Q4H PRN RC; Start 10/11/24 at 09:00; Stop 11/10/24 at 08:59 Ondansetron HCl 4 mg Q6H PRN IV Last administered on 10/13/24at 08:20; Start 10/11/24 at 09:00; Stop 11/10/24 at 08:59 Sodium Chloride 500 ml @ 0 mls/hr AD IV; Start 10/11/24 at 09:00; Stop 11/10/24 at 08:59 Nitroglycerin/ Dextrose 0 ml @ 0 mls/hr AD IV Last administered on 10/11/24at 12:00; Start 10/11/24 at 09:00; Stop 10/14/24 at 08:59; Status DC Propofol 100 ml @ 0 mls/hr AD PRN IV; Start 10/11/24 at 09:00; Stop 10/15/24 at 08:59 Norepinephrine Bitartrate 250 ml @ 0 mls/hr AD PRN IV Last administered on 10/12/24at 08:08; Start 10/11/24 at 09:00; Stop 11/10/24 at 08:59 Epinephrine HCl 10 mg/Sodium Chloride 250 ml @ 7.716 mls/ hr AD PRN IV; Start 10/11/24 at 09:00; Stop 10/16/24 at 08:59 Aminocaproic Acid 87875 mg/Sodium Chloride 310 ml @ 25 mls/hr AD IV; Start 10/11/24 at 09:00; Stop 10/11/24 at 08:54; Status DC Calcium Gluconate 1 gm/Sodium Chloride 60 ml @ 200 mls/hr AD PRN IV Last administered on 10/13/24at 17:20; Start 10/11/24 at 09:00; Stop 11/10/24 at 08:59 Magnesium Sulfate 50 ml @ 12.5 mls/hr AD PRN IV Last administered on 10/12/24at 23:52; Start 10/11/24 at 09:00; Stop 11/10/24 at 08:59 Potassium Chloride 100 ml @ 100 mls/hr AD PRN IV Last administered on 10/13/24at 16:11; Start 10/11/24 at 09:00; Stop 11/10/24 at 08:59 Potassium Phosphate 250 ml @ 42 mls/hr AD PRN IV; Start 10/11/24 at 09:00; Stop 11/10/24 at 08:59 Albumin Human 250 ml @ 0 mls/hr AD PRN IV Last administered on 10/11/24at 23:20; Start 10/11/24 at 09:00; Stop 10/11/24 at 23:20; Status DC Acetaminophen 650 mg Q4H PRN PO; Start 10/11/24 at 09:00; Stop 11/10/24 at 08:59 Insulin Human Regular 100 unit/ Sodium Chloride 100 ml @ 0 mls/hr AD IV Last administered on 10/11/24at 23:19; Start 10/11/24 at 09:00; Stop 10/13/24 at 08:59; Status DC Cefazolin Sodium 2 gm Q8H IVPB Last administered on 10/12/24at 06:21; Start 10/11/24 at 14:00; Stop 10/12/24 at 06:01; Status DC Tramadol HCl 25 mg Q6H PRN PO; Start 10/11/24 at 09:00; Stop 10/16/24 at 08:59 Tramadol HCl 50 mg Q6H PRN PO Last administered on 10/14/24at 08:29; Start 10/11/24 at 09:00; Stop 10/16/24 at 08:59 Famotidine 20 mg BID IV; Start 10/11/24 at 09:00; Stop 10/11/24 at 09:03; Status DC Sodium Bicarbonate 50 meq AD PRN IV Last administered on 10/11/24at 18:14; Start 10/11/24 at 09:00; Stop 10/14/24 at 08:59; Status DC Dextrose 50 ml AD PRN IV; Start 10/11/24 at 09:00; Stop 10/13/24 at 07:52; Status DC Glucagon 1 mg AD PRN IM; Start 10/11/24 at 09:00; Stop 10/13/24 at 07:52; Status DC Sodium Chloride 1,000 ml @ 10 mls/hr ONCE ONCE IV Last administered on 10/11/24at 10:30; Start 10/11/24 at 09:00; Stop 10/14/24 at 09:10; Status DC Famotidine 20 mg Q24H IV Last administered on 10/14/24at 08:24; Start 10/11/24 at 09:30; Stop 11/10/24 at 08:59 Vasopressin 20 units STK-MED ONCE .ROUTE; Start 10/11/24 at 09:42; Stop 10/11/24 at 09:42; Status DC Ephedrine Sulfate 50 mg STK-MED ONCE .ROUTE; Start 10/11/24 at 09:42; Stop 10/11/24 at 09:43; Status DC Protamine Sulfate 250 mg STK-MED ONCE IV; Start 10/11/24 at 09:54; Stop 10/11/24 at 09:54; Status DC Protamine Sulfate 50 mg STK-MED ONCE .ROUTE; Start 10/11/24 at 09:54; Stop 10/11/24 at 09:54; Status DC Heparin Sodium (Porcine) 10,000 unit STK-MED ONCE .ROUTE; Start 10/11/24 at 09:54; Stop 10/11/24 at 09:54; Status DC Vasopressin 40 units/Sodium Chloride 40 ml @ 0 mls/hr PROTOCOL IV; Start 10/11/24 at 11:00; Stop 11/10/24 at 10:59 Lidocaine HCl/ Dextrose 250 ml @ 0 mls/hr AD PRN IV Last administered on 10/12/24at 14:44; Start 10/11/24 at 11:00; Stop 10/12/24 at 19:18; Status DC Lidocaine HCl/ Dextrose 250 ml @ As Directed STK-MED ONCE IV; Start 10/11/24 at 10:57; Stop 10/11/24 at 10:57; Status DC Amiodarone HCl 150 mg/Dextrose 103 ml @ 618 mls/hr ONCE IV Last administered on 10/11/24at 11:57; Start 10/11/24 at 12:00; Stop 10/11/24 at 12:09; Status DC Amiodarone HCl 360 mg/Dextrose 207.2 ml @ 33.3 mls/hr AD IV Last administered on 10/11/24at 12:04; Start 10/11/24 at 12:00; Stop 10/12/24 at 19:18; Status DC Amiodarone HCl 540 mg/Dextrose 310.8 ml @ 16.7 mls/hr [id number] IV Last administered on 10/11/24at 18:20; Start 10/11/24 at 12:00; Stop 11/10/24 at 11:59 Atropine Sulfate 1 mg STK-MED ONCE IVP; Start 10/11/24 at 12:42; Stop 10/11/24 at 12:42; Status DC Iohexol 35,000 mg STK-MED ONCE IV; Start 10/11/24 at 12:42; Stop 10/11/24 at 12:42; Status DC Heparin Sodium (Porcine) 10,000 unit STK-MED ONCE .ROUTE; Start 10/11/24 at 12:42; Stop 10/11/24 at 12:42; Status DC Heparin Sodium/ Sodium Chloride 1,000 ml @ As Directed STK-MED ONCE IV; Start 10/11/24 at 12:42; Stop 10/11/24 at 12:43; Status DC Nitroglycerin 50 mg STK-MED ONCE .ROUTE; Start 10/11/24 at 12:42; Stop 10/11/24 at 12:43; Status DC Lidocaine HCl 20 ml STK-MED ONCE .ROUTE; Start 10/11/24 at 12:43; Stop 10/11/24 at 12:43; Status DC Bivalirudin 250 mg STK-MED ONCE IV; Start 10/11/24 at 13:27; Stop 10/11/24 at 13:27; Status DC Iohexol 35,000 mg STK-MED ONCE IV; Start 10/11/24 at 13:34; Stop 10/11/24 at 13:34; Status DC Clopidogrel Bisulfate 300 mg STK-MED ONCE .ROUTE; Start 10/11/24 at 13:45; Stop 10/11/24 at 13:47; Status DC Clopidogrel Bisulfate 75 mg DAILY PO Last administered on 10/14/24at 08:25; Start 10/12/24 at 09:00; Stop 11/11/24 at 08:59 Heparin Sodium/ Dextrose 250 ml @ 0 mls/hr PROTOCOL IV Last administered on 10/11/24at 16:14; Start 10/11/24 at 16:00; Stop 10/12/24 at 19:18; Status DC Dextrose 50 ml AD PRN IV; Start 10/11/24 at 15:00; Stop 11/10/24 at 14:59 Glucagon 1 mg AD PRN IM; Start 10/11/24 at 15:00; Stop 11/10/24 at 14:59 Heparin Sodium/ Dextrose 250 ml @ 0 mls/hr PROTOCOL IV; Start 10/11/24 at 16:00; Stop 10/11/24 at 15:24; Status DC Cefazolin Sodium 2 gm STK-MED ONCE IVPB Last administered on 10/11/24at 08:30; Start 10/11/24 at 08:30; Stop 10/11/24 at 20:01; Status DC Cefazolin Sodium 1 gm STK-MED ONCE IRRIG Last administered on 10/11/24at 09:00; Start 10/11/24 at 09:00; Stop 10/11/24 at 20:01; Status DC Papaverine HCl 60 mg STK-MED ONCE IRRIG Last administered on 10/11/24at 09:00; Start 10/11/24 at 09:00; Stop 10/11/24 at 20:01; Status DC Heparin Sodium (Porcine) 5,000 unit STK-MED ONCE IRRIG Last administered on 10/11/24at 09:00; Start 10/11/24 at 09:00; Stop 10/11/24 at 20:01; Status DC Furosemide 20 mg ONCE ONCE IV; Start 10/12/24 at 02:30; Stop 10/12/24 at 02:31; Status DC Furosemide 20 mg STK-MED ONCE .ROUTE Last administered on 10/12/24at 02:20; Start 10/12/24 at 02:16; Stop 10/12/24 at 02:17; Status DC Albumin Human 250 ml @ As Directed STK-MED ONCE IV Last administered on 10/12/24at 21:19; Start 10/12/24 at 17:49; Stop 10/12/24 at 17:50; Status DC Amiodarone HCl 200 mg DAILY PO Last administered on 10/14/24at 08:25; Start 10/13/24 at 09:00; Stop 11/12/24 at 08:59 Insulin Human Regular INSULIN SLIDING SCAL... ACHS SQ; Start 10/13/24 at 11:30; Stop 11/12/24 at 11:29 Potassium Chloride 20 meq AD PRN PO; Start 10/14/24 at 09:00; Stop 11/13/24 at 08:59 Atorvastatin Calcium 40 mg HS PO; Start 10/14/24 at 21:00; Stop 11/10/24 at 20:59 GUANACO ORELLANA MD Oct 14, 2024 10:09
--- NOTE | 2024-10-14 11:06 | PN ---
"[facility] PROGRESS NOTE Date Patient Seen: Oct 14, 2024 Time of Visit: 11:05 Supervising Physician: Ryan CASTRO MD Primary Care Physician: Maine Euceda MD Outpatient Specialists: Inpatient Consults: CV Surgery Dr Gregg, Dr Ravi MD, BIS Attending physician|: Kali Carroll MD PROBLEM LIST: NSTEMI, POA, Multivessel CAD status post CABG x2 on 10/11/24 (Dr Gregg) IABP rt femoral, removed 10/12/24 Cardiomyopathy with EF of 35-40% POA Postoperative AFib with RVR on amiodarone drip and lidocaine drip CKD stage IIIA, POA hyperglycemia in the presence of type 2 diabetes mellitus, POA Hypertension Hypothyroidism Raynaud's phenomenon GI bleed resolved INTERVAL HISTORY: Day # 3 s/p CABG. pt is awake alert and oriented. No major overnight events reported per RN. Patient denies any chest pain, palpitations or shortness breath. She is off drips today and hemodynamically stable with a blood pressure 120/49 heart rate in the 70s respiratory rate of 12 saturating 98% with 2 L via nasal cannula. Patient remains in reverse Trendelenburg to has a she is to left femoral area bilateral pedal pulses present plus one. Chest tubes continue in place drained 340 mL in the last 24 hours urine output was 2.2 L and balance was-1.2 L in 24 hours. WBCs trending down as expected 15.3 today H&H 7.6/23.4 we will transfuse 1 unit of PRBCs. Chest x-ray for today shows improving postop chest. Decreased vascular congestion. We will continue to follow CV protocol. REVIEW OF SYSTEMS: 12 point ROS reviewed with patient. Pertinent positives mentioned above. Otherwise negative. PHYSICAL EXAM: GENERAL: Post CABG , recovering HEENT: Sclera non icteric, moist mucosa NECK: Supple, no JVD, trachea midline Rt IJ LUNGS: Clear breath sounds to all lobes bilaterally. No wheezes HEART: Regular rate and rhythm. Normal S1 and S2, without murmurs , dressing to midsternal area clean dry and intact. Chest tube ABD: Abdomen soft, nontender. Bowel sounds present EXT: No clubbing cyanosis or edema,left fermoral sheat still in place carlos pedal pulses +1 palpable. NEURO: GCS 15 no focal weakness. Vital Signs (last 8hr) Date Time Temp Pulse Resp B/P (MAP) Pulse Ox O2 Delivery O2 Flow Rate FiO2 10/14/24 09:15 75 16 117/49 (71) 98 119/60 (79) 10/14/24 09:00 79 19 143/63 (89) 97 140/74 (96) 10/14/24 08:45 80 6 150/64 (92) 98 140/81 (100) 10/14/24 08:30 88 12 156/61 (92) 97 144/73 (96) 10/14/24 08:30 99 Nasal Cannula* 2 28 10/14/24 08:15 88 7 139/58 (85) 97 141/85 (103) 10/14/24 08:07 99.3 10/14/24 08:00 85 15 143/54 (83) 99 130/65 (86) 10/14/24 07:45 88 15 132/52 (78) 97 135/68 (90) 10/14/24 07:30 86 12 138/52 (80) 98 141/65 (90) 10/14/24 07:15 87 16 147/55 (85) 98 134/61 (85) 10/14/24 07:00 86 20 131/51 (77) 96 126/67 (86) 10/14/24 06:45 84 11 124/46 (72) 98 122/59 (80) 10/14/24 06:00 84 11 137/52 (80) 98 128/67 (87) 10/14/24 05:45 84 12 128/49 (75) 97 126/61 (82) 10/14/24 05:30 83 15 121/47 (71) 96 127/65 (85) 10/14/24 05:15 83 16 126/50 (75) 96 133/64 (87) 10/14/24 05:00 87 16 134/53 (80) 95 140/69 (92) 10/14/24 04:45 81 16 129/49 (75) 96 130/62 (84) 10/14/24 04:30 87 16 129/50 (76) 96 129/67 (87) 10/14/24 04:15 85 18 123/47 (72) 96 126/62 (83) 10/14/24 04:05 98.1 Nasal Cannula 2.0 10/14/24 04:00 99 Nasal Cannula* 2 28 10/14/24 04:00 83 12 125/51 (75) 97 127/72 (90) 10/14/24 03:45 83 13 122/49 (73) 97 130/64 (86) 10/14/24 03:30 84 13 119/48 (71) 97 124/65 (84) 10/14/24 03:15 83 14 138/56 (83) 97 130/69 (89) LABS: Hematology Labs: Test 10/14/24 04:51 Range/Units White Blood Count 16.6 H 4.8-10.8 K/uL Red Blood Count 2.43 L 4.00-5.50 MIL/uL Hemoglobin 7.3 L 12.0-16.0 g/dL Hematocrit 22.1 L 36-48 % Mean Corpuscular Volume 90.9 79-99 fL Mean Corpuscular Hemoglobin 30.0 27.0-33.0 pg Mean Corpuscular Hemoglobin Concent 33.0 32.0-36.0 g/dL Red Cell Distribution Width 15.3 11.0-15.5 % Platelet Count 107 L 130-400 K/uL Mean Platelet Volume 11.5 H 7.5-10.5 fL Immature Granulocyte % (Auto) 0.8 0-1 % Neutrophils (%) (Auto) 84.9 H 40.0-77.0 % Lymphocytes (%) (Auto) 8.4 L 21.0-51.0 % Monocytes (%) (Auto) 5.7 3.0-13.0 % Eosinophils (%) (Auto) 0.1 0.0-8.0 % Basophils (%) (Auto) 0.1 0.0-5.0 % Neutrophils # (Auto) 14.1 H 1.8-7.7 K/uL Lymphocytes # (Auto) 1.4 1.0-4.8 K/uL Monocytes # (Auto) 1.0 0.1-1.0 K/uL Eosinophils # (Auto) 0.01 0.00-0.70 K/uL Basophils # (Auto) 0.02 0.00-0.20 K/uL Absolute Immature Granulocyte (auto 0.14 0-1 K/uL Nucleated Red Blood Cells 1.3 H 0.0-0.19 % Chemistry Labs: Test 10/14/24 04:51 10/13/24 20:20 10/13/24 04:56 10/12/24 22:36 Range/Units Sodium Level 142 136-145 mmol/L Potassium Level 3.7 3.5-5.1 mmol/L Chloride Level 106 101-111 mmol/L Carbon Dioxide Level 28 21-32 mmol/L Blood Urea Nitrogen 33 H 7-18 mg/dL Creatinine 0.8 0.5-1.0 mg/dL Glomerular Filtration Rate Calc 75 >90 mL/min Random Glucose 112 H 70-105 mg/dL Total Calcium 8.3 L 8.5-10.1 mg/dL Whole Blood Glucose 105 70-110 MG/DL Magnesium Level 2.30 1.80-2.40 mg/dL Phosphorus Level 5.7 #H 2.5-4.9 mg/dL Coagulation Labs: Test 10/12/24 15:45 Range/Units Activated Partial Thromboplast Time > 139.0 #*H 26.3-35.5 SEC DIAGNOSTICS / RADIOLOGY RESULTS: [ ] IMAGING REPORT Signed PATIENT: WATSON BONILLA MR#: [id number] : 1945 SEX: F AGE: 79 LOCATION: 2C ORDER 2300 STATUS: ADM IN REPORT#: [id number] SERVICE 0400 REASON: s/p CABG ORDERING PHYSICIAN: NAWAF GREGG MD PROCEDURE: CXR1VW - CHEST 1VW CHEST 1VW REASON: s/p CABG COMPARISON: 10/13/2024 FINDINGS: There is mild cardiomegaly, unchanged. Lungs are clear. There is no vascular congestion or pleural effusion. Left chest tube remains in place, there is no pneumothorax. IMPRESSION: 1. Improving postop chest. DICTATED BY: MISBAH BLISS MD DATE: 10/14/24 0957 ELECTRONICALLY SIGNED BY: MISBAH BLISS MD DATE: 10/14/[address] surgeon recommendations Follow cardiology recommendations Multimodal pain management Monitoring H&H Monitor chest tube output Chest x-ray in the morning Start SBT's as tolerated IABP managed by CV/Cardiology Monitor ABGs Transfuse if absolutely necessary to keep hemoglobin above 8 Maintain O2 sats greater than 92% Incentive spirometry once extubated Glycemic control with goal of 80-180 Referral for cardiac rehabilitation Speech to eval once patient is extubated monitor electrolytes: K Goal of 4 Magnesium goal of 2 Replace accordingly NEURO: Minimize central acting medications as possible. Fall Precautions. Well lighted room through the day and minimize interruptions through the night to prevent acute delirium. PULMONARY: Supplemental 02 as needed Titrate Fio2 to keep Spo2 > or = 90% DuoNebs and CPT as needed IS hourly while awake for pulmonary hygiene Out of bed to chair as tolerated CARDIOVASCULAR: Follow hemodynamics. Titrate vasopressor to keep MAP >65 or systolic blood pressure >95mmHg DIPS: Epinephrine LINES: Central line Chest tubes Arterial line GI & NUTRITION: Continue nutritional support Aspirations precautions Prokinetic agents and laxatives as needed KIDNEYS & ELECTROLYTES: Strict monitoring of intake and output Daily weights Avoid nephrotoxic agents Monitor electrolytes and replace as needed Goal urine output of 30mL/hr or 0.5mL/kg/hr Urine output: [ ] Fluid Balance: [ ] ENDOCRINE: Maintain blood glucose between 100-180 at all times. Insulin sliding scale for blood glucose management INFECTIOUS DISEASE: Trend temperature. Canales-culture if febrile. Micro: [ ] Antibiotics: [ ] Ancef x3 per CV protocol HEMATOLOGY & COAGULATION: Monitor H&H. Keep Hgb > 7 Transfuse 1 unit of PRBC for Hgb < 7 Transfuse 1 pack of platelets of platelets < 20, 000 Watch for any signs and symptoms of bleeding SKIN: Pressure ulcer prevention per facility protocol Rehab: PT/OT Prophylaxis: GI: Pepcid DVT: Ernst hose Code Status: Full Resuscitation Disposition: ICU Other: Total patient care time exceeds 60 minutes excluding all procedures. Case was discussed and seen with my supervising physician. The above plan was formulated and agreed upon. VJ WEN Oct 14, 2024 11:06"
[2024-10-14 11:37] LABS: BASOPHILS # (AUTO) 0.03 K/uL (0.00-0.20); BASOPHILS % (AUTO) 0.2 % (0.0-5.0); EOSINOPHILS # (AUTO) 0.03 K/uL (0.00-0.70); EOSINOPHILS % (AUTO) 0.2 % (0.0-8.0); HEMATOCRIT 23.4 % (36-48); IMMATURE GRANULOCYTE ABSOLUTE 0.13 K/uL (0-1); LYMPHOCYTES # (AUTO) 1.2 K/uL (1.0-4.8); LYMPHOCYTES % (AUTO) 7.6 % (21.0-51.0); MEAN CORPUSCULAR HEMOGLOBIN 29.9 pg (27.0-33.0); MEAN CORPUSCULAR HGB CONC 32.5 g/dL (32.0-36.0); MEAN CORPUSCULAR VOLUME 92.1 fL (79-99); MONOCYTES # (AUTO) 0.8 K/uL (0.1-1.0); MONOCYTES % (AUTO) 5.5 % (3.0-13.0); NEUTROPHILS # (AUTO) 13.1 K/uL (1.8-7.7); NEUTROPHILS % (AUTO) 85.7 % (40.0-77.0); NUCLEATED RED BLOOD CELLS 1.4 % (0.0-0.19); PLATELET COUNT (AUTO) 118 K/uL (130-400); RED BLOOD CELL COUNT(AUTO) 2.54 MIL/uL (4.00-5.50); RED CELL DISTRIBUTION WIDTH 15.4 % (11.0-15.5); WHITE BLOOD COUNT (AUTO) 15.3 K/uL (4.8-10.8)
[2024-10-14 12:58] LABS: % IRON SATURATION 21.9 % (22-44)
--- NOTE | 2024-10-14 15:03 | NUR ---
PT eval on hold per Nurse Jones. Pt getting femoral sheath removed today and will be on bedrest. PT team following.
[2024-10-14] MEDS ORDERED: IRON sUCROse COMPLEX 100 MG/5 ML VIAL IV SCH (18:30)
--- NOTE | 2024-10-14 18:38 | OP ---
Operative Note: DATE OF SERVICE : 10/08/24 1700 PROCEDURES PERFORMED: 1. stenting of the LAD 2. angioplasty of the LAD 3. Left heart catheterization. 4. Selective coronary angiography. INDICATION FOR PROCEDURE: pt developed sudden onset ST elevation in the anterior leads post CABG , anterior wall STEMI DESCRIPTION OF PROCEDURE: The patient was brought to the cardiac catheterization lab in an emergency state informed consent was obtained from family, pt was intubated and sedated The patient was prepped and draped in sterile fashion. The right common femoral artery was accessed using the sildneger technique , 6 F femoral artery sheath was introduced JL4 catheter was used to enage the Left main, multiple views of the left coron john system were obtained, catheter was disengaged and removed over a wire JR catheter was used to engage the RCA , angiogram of which was obtained, catheter was then used to engage the graft to CX, angiogram was obtained, catheter was then used to engage the WILSON, angiogram was obtained SELECTIVE CORONARY ANGIOGRAPHY: 1. Left main: The left main bifurcates into the left anterior descending and circumflex coronary artery. Distal Left main with 50% stenosis 2. Left anterior descending: The left anterior descending coronary artery is occluded proximally, WILSON is occluded 3. Circumflex: The circumflex coronary artery is noted to provide obtuse marginal(s). Prox Cx with 95% disease, SVG-CX is patent 4. Right coronary artery: The right coronary artery is dominant and gives PDA and NIKITA. Prox RCA with 50% disease angiomax and aggrastat were given to pt EBU guide was used to engage the left main choise PT wire was introduced to distal LAD, angioplasty of the LAD was done using 2.5 X 20 balloon at 8 Lele pressure for 10 second twice, reestablishing LATHA 3 flow with 90% proximal disease stenting of the LAD followed using SHASHANK, 3.0 X 30 mm which was deployed at 14 lele pressure angiogram of the LAD revealed 0% residual , LATHA 3 flow, no complications guide was disengaged and removed over a wire and sheath was aspirated and flushed impression successful PCI of the LAD for management of anterior wall STEMI post CABG with no complications plan transfer to ICU DAPT BB and statin therapy CLAUDIA STEELE MD Oct 14, 2024 18:38
[2024-10-14] MEDS: IRON sUCROse COMPLEX 100 MG/5 ML VIAL IV SCH (18:41)
--- NOTE | 2024-10-14 19:46 | PN ---
[facility] PROGRESS NOTE Date of Service: Oct 14, 2024 Time of Service: 19:43 SUBJECTIVE: Ms. Mac is a 79-year-old female that was seen and examined today on 10/05/2024. Patient is a good historian and personal health. Patient states that she came to the emergency department with a chief complaint of bilateral chest wall pain closer to the axilla and pain also radiates to the back. Onset was 9:30 a.m.. Character is described as throbbing. Symptoms are aggravated with palpation and movement. Symptoms are not alleviated with a chiropractic adjustment in fact symptoms became worse after a chiropractic adjustment. There was no alleviating factors Duration of pain is on and off. Patient denies any associated shortness of breath, nausea, vomiting, headache, dizziness. Today in the emergency department CBC unremarkable, troponin 378 (high sensitivity), creatinine 1.1, glucose 208 mg/dL, GFR 51, no urinalysis has been collected or sent to lab. Emergency room initial impression and EKG is that there is new T-wave inversions signifying a change from previous EKGs one week ago at a prior emergency room visit. For this reason emergency room physician recommended patient be admitted with a diagnosis of chest pain. 10/06/24 patient was seen and examined in the ER. She reports that she was doing much better. She denies any chest pain. And she tells me that she came in because she had back pain radiating to bilateral shoulders. She does go to chiropractor to get this resolved but this time it was more persistent 10/07/2024 - patient is seen at bedside in the room ER 5. Patient denies any active chest pain, shortness of breath, nausea, vomiting. [place] [address] and is coming down with treatment, patient is planned for veterinarian laboratory animal care. Patient feels anxious about the upcoming veterinarian laboratory animal care procedure and question regarding the procedures, all questions were answered. Patient informed about her extremities getting cold and color change to purplish red and about her joint problems and trouble of food getting stuck in the esophagus after swallowing , immunology workup is planned to rule out limited scleroderma . Patient is hemodynamically stable with temperature 98.6, pulse 77, respiratory rate 17, blood pressure 146/77, pulse oximetry 99% on room air. Patient's labs shows WBC 10.4, hemoglobin 13.5, chemistries show sodium 141, potassium 4.3, creatinine 0.8, BUN 14. Patient is currently on metoprolol, pantoprazole, aspirin, heparin, nitroglycerin. Patient will be followed rajiv kuldip, we will follow Cardiology recommendations. 10/08/2024 - patient is seen in room 201, patient denies any symptoms, patient was taken to the veterinarian laboratory animal care yesterday in the results are as follows SELECTIVE CORONARY ANGIOGRAPHY: 1. Left main: The left main bifurcates into the left anterior descending and circumflex coronary artery. Distal Left main with 50% stenosis 2. Left anterior descending: The left anterior descending coronary artery gives rise to diagonal(s) and terminates as the apical recurrent branch. Prox LAD with 90% disease 3. Circumflex: The circumflex coronary artery is noted to provide obtuse marginal(s). Prox Cx with 95% disease 4. Right coronary artery: The right coronary artery is dominant and gives PDA and NIKTIA. Prox RCA with 50% disease 5. Left ventricular end-diastolic pressure is elevated. There was no gradient noted upon pullback. Cardiothoracic surgeon is consulted and Dr. Licona has ordered an ultrasound carotid has a preoperative procedure. patient will be continued on medical management until the surgery . Patient is currently hemodynamically stable with temperature 98.2, pulse 81, blood pressure 122/80, respiratory rate 18, saturating at 94% on room air. Patient's labs shows WBC 10.7, hemoglobin 11.9 and chemistries show sodium 142, potassium 3.7, creatinine 0.7. Awaiting further instructions from cardio thoracic surgeon. 10/09/2024 - patient is seen at bedside in room 201. Patient is currently asymptomatic but complained of mild pain yesterday night which is relieved with nitro patch. Patient had black tarry stool episode yesterday and the heparin is put on hold currently she informed that this morning she had a normal colored stool. Patient has been seen by Dr. Licona and he informed about the surgery but has not scheduled it yet. Flour Tester following the case closely and recommends continuing the medical management until the surgery patient is currently hemodynamically stable with temperature 97.9, pulse 73, respiratory rate 16, blood pressure 113/58 and saturating at 99% on room air. Patient's labs shows WBC 9.6, hemoglobin 11.3 And chemistries show sodium 138, potassium 3.6, creatinine 0.8, BUN 24. Patient will be followed closely. 10/10/2024 - patient is seen at bedside in room 201. Patient is complaining of mild pain in the back which is reproducible on palpation and also mentioned about mild chest pain which presents on bending forward, pain is relieved by sitting straight. Patient requested medication for the back pain and we ordered Flexeril and Ultram p.r.n. heparin is currently on hold troponin is trending down. Heparin to be continued if troponin trending up and will be held with the patient has black tarry stools again. Cardiac thoracic surgery might plan to surgery on the weekend. Patient's vitals temperature 98.1, pulse 60, respiratory rate 20, blood pressure 125/59, saturating at 99% on room air. Patient's labs shows WBC 9.6, hemoglobin 10.7 and chemistries show sodium 139, potassium 4.1, creatinine 0.8, BUN 24 and troponin has trended down from 2346 to 1280. We will be following Cardiology recommendations. We will be monitoring the case closely. 10/11/2024 - patient is seen at bedside in room 212. Patient is seen post CABG, intubated. Cardiology anesthesia informed about the procedure done and about placing 2 grafts for the stenosed vessels - LAD, left circumflex. Also informed about recovery of some heart function due to the return of perfusion . Patient had AFib after the surgery and she was started on amiodarone and lidocaine drip. Patient also had IABP placed to assist with EF. Patient is on other drips like nitro, epinephrine, ventilation settings are respiratory rate 14 , tidal volume 450, FiO2 100%, peep of 5 . Patient currently return to sinus rhythm after the amiodarone bolus. Patient's white count elevated to 29.6 and chemistries show sodium 148, potassium 3.3, magnesium 1.2 , it will be replaced. Patient will be monitored closely. 10/12/24 patient was seen and examined. Case discussed with the RN. Patient was more stable today heart rate of there may be able to switch amiodarone to p.o.. 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 No unintentional weight loss reported. NEUROLOGICAL: Denies headache, amaurosis fugax, motor weakness, sensory deficit, vertigo/spinning sensation, gait abnormalities, or tremors. ENT: No hearing loss, otalgia, otorrhea, rhinitis, rhinorrhea, hoarseness, or sore throat. CARDIOVASCULAR: Denies any exertional angina, dyspnea on exertion, orthopnea, paroxysmal nocturnal dyspnea, palpitations, life-threatening arrhythmias, claudication. PULMONARY: Denies any shortness of breath, cough, phlegm/sputum, hemoptysis, pleuritic chest pain. SLEEP: Denies morning headaches, daytime somnolence or napping. Denies difficulty falling asleep, staying asleep, waking from sleep. Denies knowledge of snoring. GASTROINTESTINAL: Denies any type of dysphagia to either liquids or solids. Denies nausea, vomiting, pyrosis, early satiety, abdominal pain, diarrhea, constipation, or changes in stool consistency or caliber. Denies coffee-ground emesis, hematemesis, hematochezia, or melanotic stools. GENITOURINARY: Denies frequency, urgency, nocturia, hematuria or incontinence (Storage/Irritative symptoms.) Low urinary stream, straining to void, urinary intermittency or hesitancy, splitting of the voiding stream, terminal dribbling. ENDOCRINOLOGIC: Denies polyuria, polydipsia, polyphagia or heat/cold intolerances. HEMATOLOGIC: Denies thrombophilia/previous clots, or coagulopathy/bleeding disorders. ONCOLOGIC: Denies personal history of malignancy. DERMATOLOGIC: Denies rashes or pruritus. PSYCHIATRIC: Denies any suicidal or homicidal ideation. Denies hallucinations. PHYSICAL EXAM GENERAL APPEARANCE: The patient is awake, alert, and oriented, in no acute cardiopulmonary distress. NEUROLOGICAL: Cranial nerves II-XII grossly intact. Motor is 5/5 in bilateral upper and lower extremities proximal to distal. No sensory deficits. HEENT: Face is symmetric. Pupils are equal and reactive. Extraocular movements are intact. NECK: Supple. No JVD. No thyromegaly. No submental, submandibular, pre- /postauricular, occipital or supraclavicular lymphadenopathy. CHEST: Normal chest expansion. No Telemetry. LUNGS: Absence of any rales, rhonchi or any wheezing. CARDIOVASCULAR: Regular. S1 and S2 normal. No appreciable rubs, murmurs or gallops. ABDOMEN: Soft, nontender, and nondistended. There is no rebound, voluntary guarding, or rigidity. : Deferred. No Rosa. EXTREMITIES: Non-edematous and not cyanotic. No clubbing. Good capillary refill. SKIN: No skin breakdown. Vital Signs (last 8hr) Date Time Temp Pulse Resp B/P (MAP) Pulse Ox O2 Delivery O2 Flow Rate FiO2 10/14/24 19:00 86 15 104/47 (66) 97 99/59 (72) 10/14/24 18:00 82 15 143/54 (83) 99 10/14/24 17:45 80 17 146/54 (84) 98 130/65 (86) 10/14/24 17:00 81 17 138/50 (79) 99 128/65 (86) 10/14/24 16:45 83 18 150/54 (86) 98 134/62 (86) 10/14/24 16:30 99 Nasal Cannula* 2 28 10/14/24 16:30 84 19 84/53 (63) 99 133/59 (83) 10/14/24 16:15 82 18 148/52 (84) 99 130/60 (83) 10/14/24 16:00 98.4 10/14/24 16:00 80 7 151/55 (87) 100 128/67 (87) 10/14/24 15:45 78 21 145/51 (82) 98 129/63 (85) 10/14/24 15:30 82 13 145/51 (82) 100 121/62 (81) 10/14/24 15:15 81 14 148/49 (82) 100 134/59 (84) 10/14/24 15:00 80 14 138/47 (77) 99 132/58 (82) 10/14/24 14:45 81 12 142/52 (82) 98 128/56 (80) 10/14/24 14:30 81 21 140/45 (76) 100 144/57 (86) 10/14/24 14:15 80 19 147/49 (81) 99 133/64 (87) 10/14/24 14:00 77 17 140/48 (78) 98 126/63 (84) 10/14/24 13:45 78 17 139/48 (78) 100 127/53 (77) 10/14/24 13:30 79 25 133/48 (76) 99 123/53 (76) 10/14/24 13:15 77 7 129/47 (74) 100 124/57 (79) 10/14/24 13:00 79 14 121/49 (73) 98 109/48 (68) 10/14/24 12:45 77 17 137/55 (82) 99 122/59 (80) 10/14/24 12:33 97.2 10/14/24 12:30 99 Nasal Cannula* 2 28 10/14/24 12:30 81 17 119/56 (77) 100 131/52 (78) 10/14/24 12:15 78 14 118/45 (69) 98 107/56 (73) 10/14/24 12:00 78 10 132/52 (78) 98 129/64 (85) 10/14/24 11:45 76 20 120/46 (70) 98 115/56 (75) LABS: Laboratory: Test 10/14/24 11:11 10/14/24 04:51 10/13/24 15:57 10/13/24 04:56 Range/Units White Blood Count 15.3 H 4.8-10.8 K/uL Red Blood Count 2.54 L 4.00-5.50 MIL/uL Hemoglobin 7.6 L 12.0-16.0 g/dL Hematocrit 23.4 L 36-48 % Mean Corpuscular Volume 92.1 79-99 fL Mean Corpuscular Hemoglobin 29.9 27.0-33.0 pg Mean Corpuscular Hemoglobin Concent 32.5 32.0-36.0 g/dL Red Cell Distribution Width 15.4 11.0-15.5 % Platelet Count 118 L 130-400 K/uL Mean Platelet Volume 11.5 H 7.5-10.5 fL Immature Granulocyte % (Auto) 0.8 0-1 % Neutrophils (%) (Auto) 85.7 H 40.0-77.0 % Lymphocytes (%) (Auto) 7.6 L 21.0-51.0 % Monocytes (%) (Auto) 5.5 3.0-13.0 % Eosinophils (%) (Auto) 0.2 0.0-8.0 % Basophils (%) (Auto) 0.2 0.0-5.0 % Neutrophils # (Auto) 13.1 H 1.8-7.7 K/uL Lymphocytes # (Auto) 1.2 1.0-4.8 K/uL Monocytes # (Auto) 0.8 0.1-1.0 K/uL Eosinophils # (Auto) 0.03 0.00-0.70 K/uL Basophils # (Auto) 0.03 0.00-0.20 K/uL Absolute Immature Granulocyte (auto 0.13 0-1 K/uL Nucleated Red Blood Cells 1.4 H 0.0-0.19 % Whole Blood Glucose 109 70-110 MG/DL Iron Level 36 L 50-170 mcg/dL Total Iron Binding Capacity 164 L 250-450 mcg/dL Percent Iron Saturation 21.9 L 22-44 % Sodium Level 142 136-145 mmol/L Potassium Level 3.7 3.5-5.1 mmol/L Chloride Level 106 101-111 mmol/L Carbon Dioxide Level 28 21-32 mmol/L Blood Urea Nitrogen 33 H 7-18 mg/dL Creatinine 0.8 0.5-1.0 mg/dL Glomerular Filtration Rate Calc 75 >90 mL/min Random Glucose 112 H 70-105 mg/dL Total Calcium 8.3 L 8.5-10.1 mg/dL Blood Gas Specimen Type Arterial Arterial Blood pH 7.459 H 7.350-7.450 Arterial Blood Partial Pressure CO2 37 32-45 mmHg Arterial Blood Partial Pressure O2 105.4 83.0-108.0 mmHg Arterial Blood HCO3 25.7 21.0-28.0 mmol/L Arterial Blood Oxygen Saturation 97.1 94.0-98.0 % Arterial Blood Base Excess 1.8 -2.0-3.0 mmol/L Hemoglobin (Blood Gas) 8.5 L 12.0-16.0 g/dL Sodium (Blood Gas) 139 136-145 MMOL/L Bedside Potassium (Blood Gas) 3.9 3.4-4.5 MMOL/L Bedside Chloride (Blood Gas) 104 98-107 MMOL/L Bedside Glucose (Blood Gas) 115 H 65-95 MG/DL Bedside Ionized Calcium (Blood Gas) 1.17 1.15-1.33 MMOL/L Bedside Lactic Acid (Blood Gas) 0.76 H 0.36-0.75 MMOL/L Blood Gas Temperature 37.0 35.5-37.0 CELSIUS Blood Gas Flow-by 2.00 0.00-15.00 L/min Blood Gas Vent Mode NC ROOM AIR FiO2 28.0 % Blood Gas Specimen Comment SELENA LAUREN Magnesium Level 2.30 1.80-2.40 mg/dL Test 10/12/24 22:36 Range/Units Phosphorus Level 5.7 #H 2.5-4.9 mg/dL Current Medications Medications (Trade) Dose Ordered Sig/Rashad Route PRN Reason Start Time Stop Time Status Last Admin Dose Admin Acetaminophen (TYLenol 325MG TAB) 650 mg Q4H PRN PO Temp >38.3C(AFTER EXTUBATION) 10/11/24 09:00 11/10/24 08:59 Acetaminophen (TYLenol 325MG TAB) 650 mg Q6H PRN PO MILD PAIN (1-3) 10/11/24 09:00 11/10/24 08:59 Acetaminophen (TYLenol 325MG TAB) 650 mg Q6H PRN PO TEMPERATURE GREATER THAN 101.5 10/05/24 23:30 10/14/24 09:10 DC 10/10/24 06:06 650 MG Acetaminophen (TYLenol 650MG SUPPOSITORY) 650 mg Q4H PRN RC Temp >38.3C WHILE INTUBATED 10/11/24 09:00 11/10/24 08:59 Acetaminophen (acetaMINOPHEN) 1,000 mg Q6H6 IV 10/11/24 12:00 10/12/24 11:59 DC 10/12/24 05:06 1,000 MG Albumin Human 250 ml @ 0 mls/hr AD PRN IV IF HEMODYNAMICALLY UNSTABLE 10/11/24 09:00 10/11/24 23:20 DC 10/11/24 23:20 250 MLS/HR Aminocaproic Acid 75467 mg/Sodium Chloride 310 ml @ 25 mls/hr AD IV 10/11/24 09:00 10/11/24 08:54 DC Aminocaproic Acid 12666 mg/Sodium Chloride 480 ml @ 0 mls/hr AD PRN IV BLEEDING CONTROL 10/11/24 07:00 11/10/24 06:59 Amiodarone HCl (pacERONE 200MG) 200 mg DAILY PO 10/13/24 09:00 11/12/24 08:59 10/14/24 08:25 200 MG Amiodarone HCl 150 mg/Dextrose 103 ml @ 618 mls/hr ONCE IV 10/11/24 12:00 10/11/24 12:09 DC 10/11/24 11:57 618 MLS/HR Amiodarone HCl 360 mg/Dextrose 207.2 ml @ 33.3 mls/hr AD IV 10/11/24 12:00 10/12/24 19:18 DC 10/11/24 12:04 33.3 MLS/HR Amiodarone HCl 540 mg/Dextrose 310.8 ml @ 16.7 mls/hr [id number] IV 10/11/24 12:00 11/10/24 11:59 10/11/24 18:20 16.7 MLS/HR Aspirin (Aspirin 81mg Chew Tab) 81 mg DAILY PO 10/06/24 09:00 11/05/24 08:59 10/14/24 08:25 81 MG Atorvastatin Calcium (LIPItor 20MG) 20 mg HS PO 10/08/24 21:00 10/11/24 08:37 DC 10/10/24 20:55 20 MG Atorvastatin Calcium (LIPItor 20MG) 40 mg HS PO 10/11/24 21:00 10/14/24 09:11 DC 10/13/24 20:32 40 MG Atorvastatin Calcium (LIPItor 40MG) 40 mg HS PO 10/14/24 21:00 11/10/24 20:59 Calcium Gluconate 1 gm/Sodium Chloride 60 ml @ 200 mls/hr AD PRN IV HYPOCALCEMIA 10/11/24 09:00 11/10/24 08:59 10/13/24 17:20 200 MLS/HR Cefazolin Sodium (Ancef) 2 gm ONCALL PRN IVP SURGERY 10/10/24 12:00 10/12/24 11:59 DC Cefazolin Sodium (Ancef) 2 gm Q8H IVPB 10/11/24 14:00 10/12/24 06:01 DC 10/12/24 06:21 2 GM Clopidogrel Bisulfate (plaVIX 75MG) 75 mg DAILY PO 10/12/24 09:00 11/11/24 08:59 10/14/24 08:25 75 MG Cyclobenzaprine HCl (Cyclobenzaprine HCl) 5 mg TID PRN PO MUSCLE SPASMS 10/10/24 14:30 10/11/24 08:37 DC Dexmedetomidine/ Sodium Chloride (PRECEdex 400MCG/ 100ML-NS) 400 mcg PROTOCOL IV 10/11/24 09:00 10/12/24 08:59 DC Dextrose (D50w) 50 ml AD PRN IV HYPOGLYCEMIA PROTOCOL 10/11/24 09:00 10/13/24 07:52 DC Dextrose (D50w) 50 ml AD PRN IV HYPOGLYCEMIA PROTOCOL 10/11/24 15:00 11/10/24 14:59 Docusate Sodium (COLace 100MG CAP) 100 mg BID PO 10/12/24 09:00 11/11/24 08:59 10/14/24 08:24 100 MG Enoxaparin Sodium (Lovenox) 30 mg DAILY SQ 10/14/24 09:00 10/11/24 14:00 DC Epinephrine HCl 10 mg/Sodium Chloride 250 ml @ 7.716 mls/ hr AD PRN IV POST-OP CARDIOVASCULAR ORDERS 10/11/24 09:00 10/16/24 08:59 Epinephrine HCl 10 mg/Sodium Chloride 250 ml @ 0 mls/hr AD PRN IV TITRATE 10/11/24 07:00 10/11/24 09:01 DC Famotidine (Pepcid 20mg Vial) 20 mg BID IV 10/11/24 09:00 10/11/24 09:03 DC Famotidine (Pepcid 20mg Vial) 20 mg Q24H IV 10/11/24 09:30 11/10/24 08:59 10/14/24 08:24 20 MG Folic Acid (FOLic ACID 1 MG TABLET) 1 mg DAILY PO 10/15/24 21:00 11/14/24 20:59 Furosemide (LASix 20MG TAB) 20 mg Q12H PO 10/13/24 09:00 11/12/24 08:59 10/14/24 08:25 20 MG Furosemide (LASix 20MG VIAL) 20 mg Q12H IV 10/12/24 09:00 10/13/24 08:59 DC 10/12/24 21:18 20 MG Glucagon (Glucagon 1mg Kit) 1 mg AD PRN IM HYPOGLYCEMIA PROTOCOL 10/11/24 09:00 10/13/24 07:52 DC Glucagon (Glucagon 1mg Kit) 1 mg AD PRN IM HYPOGLYCEMIA PROTOCOL 10/11/24 15:00 11/10/24 14:59 Heparin Sodium (Porcine) (HEParin 5,000 UNIT VIAL) *calculation based on ACTUAL B... AD PRN IV HEPARIN PROTOCOL 10/06/24 07:30 10/10/24 08:27 DC 10/06/24 07:19 3,877.5 UNIT Heparin Sodium (Porcine) (HEParin 5,000 UNIT VIAL) 5,000 unit BID SQ 10/06/24 09:00 10/06/24 06:29 DC Heparin Sodium/ Dextrose 250 ml @ 0 mls/hr PROTOCOL IV 10/11/24 16:00 10/11/24 15:24 DC Heparin Sodium/ Dextrose 250 ml @ 0 mls/hr PROTOCOL IV 10/11/24 16:00 10/12/24 19:18 DC 10/11/24 16:14 8.7 MLS/HR Heparin Sodium/ Dextrose 250 ml @ 0 mls/hr Q6H IV 10/10/24 09:00 10/10/24 08:26 DC Heparin Sodium/ Dextrose 250 ml @ 0 mls/hr Q6H IV 10/06/24 07:30 10/10/24 08:17 DC 10/08/24 14:20 0 MLS/HR Insulin Human Regular (humuLIN R 100 UNIT/ML 3ML) INSULIN SLIDING SCAL... ACHS SQ 10/13/24 11:30 11/12/24 11:29 Insulin Human Regular (humuLIN R 100 UNIT/ML 3ML) INSULIN SLIDING SCAL... ACHS SQ 10/06/24 07:30 10/11/24 08:37 DC Insulin Human Regular 100 unit/ Sodium Chloride 100 ml @ 0 mls/hr AD IV 10/11/24 09:00 10/13/24 08:59 DC 10/11/24 23:19 3 MLS/HR Iron Sucrose (VenoFER) 200 mg AD IV 10/14/24 18:30 10/14/24 18:34 DC Iron Sucrose (VenoFER) 200 mg Q24H IV 10/14/24 19:00 10/16/24 19:01 10/14/24 18:41 200 MG Lactulose (Constulose 20gm/ 30ml Udcup) 20 gm BID PRN PO CONSTIPATION 10/11/24 09:00 11/10/24 08:59 Levothyroxine Sodium (SYNTHroid 100MCG TAB) 100 mcg SYN PO 10/09/24 06:30 11/08/24 06:29 10/14/24 06:54 100 MCG Lidocaine HCl/ Dextrose 250 ml @ 0 mls/hr AD PRN IV TITRATE 10/11/24 11:00 10/12/24 19:18 DC 10/12/24 14:44 7.5 MLS/HR Magnesium Hydroxide (Milk Of Magnesium 30ml) 30 ml DAILY PRN PO CONSTIPATION 10/11/24 09:00 11/10/24 08:59 Magnesium Sulfate 50 ml @ 12.5 mls/hr AD PRN IV MAG LEVEL LESS THAN 2.0 10/11/24 09:00 11/10/24 08:59 10/12/24 23:52 12.5 MLS/HR Magnesium Sulfate 50 ml @ 0 mls/hr PROTOCOL PRN IV h 10/05/24 23:30 10/11/24 08:37 DC Metoprolol Tartrate (loprESSOR) 12.5 mg BID PO 10/07/24 09:00 10/11/24 08:37 DC 10/11/24 06:32 12.5 MG Metoprolol Tartrate (loprESSOR) 12.5 mg BID PO 10/13/24 09:00 11/12/24 08:59 10/14/24 08:24 12.5 MG Morphine Sulfate (morPHINE 2MG SYG) 0.5 mg Q2H PRN IV MODERATE PAIN (4-6) 10/11/24 09:00 10/12/24 08:59 DC Morphine Sulfate (morPHINE 2MG SYG) 1 mg Q2H PRN IV SEVERE PAIN (7-10) 10/11/24 09:00 10/18/24 08:59 Nitroglycerin (Nitroglycerin 1gm Oint) 0.5 inch Q8H TD 10/05/24 23:30 10/11/24 08:37 DC 10/10/24 22:37 0.5 INCH Nitroglycerin (Nitrostat) 0.4 mg AD PRN SL CHEST PAIN 10/05/24 22:30 10/11/24 08:37 DC Nitroglycerin/ Dextrose 0 ml @ 0 mls/hr AD IV 10/11/24 09:00 10/14/24 08:59 DC 10/11/24 12:00 0 MLS/HR Norepinephrine Bitartrate 250 ml @ 0 mls/hr AD PRN IV TITRATE 10/11/24 07:00 10/11/24 09:03 DC Norepinephrine Bitartrate 250 ml @ 0 mls/hr AD PRN IV POST-OP CARDIOVASCULAR ORDERS 10/11/24 09:00 11/10/24 08:59 10/12/24 08:08 11.3 MLS/HR Ondansetron HCl (zoFRAN 4MG INJ) 4 mg Q6H PRN IV NAUSEA/VOMITING 10/11/24 09:00 11/10/24 08:59 10/13/24 08:20 4 MG Ondansetron HCl (zoFRAN 4MG INJ) 4 mg Q6H PRN IV NAUSEA/VOMITING 10/05/24 23:30 10/11/24 08:37 DC Pantoprazole Sodium (PROTonix 40MG TAB) 40 mg DAILY PO 10/06/24 09:00 10/11/24 08:37 DC 10/10/24 09:00 40 MG Pharmacy Profile Note (Pharmacy Communication) 1 each ONCE MISC 10/07/24 17:30 10/08/24 07:12 DC 10/07/24 23:37 1 EACH Potassium Phosphate 250 ml @ 42 mls/hr AD PRN IV LOW PHOS LEVEL 10/11/24 09:00 11/10/24 08:59 Potassium Chloride 100 ml @ 100 mls/hr AD PRN IV HYPOKALEMIA 10/11/24 09:00 11/10/24 08:59 10/13/24 16:11 100 MLS/HR Potassium Chloride 100 ml @ 100 mls/hr AD PRN IV POTASSIUM PROTOCOL 10/05/24 23:30 10/11/24 08:37 DC Potassium Chloride (K-Dur/Klor-Con 20meq) 20 meq AD PRN PO POTASSIUM PROTOCOL 10/05/24 23:30 10/11/24 08:37 DC Potassium Chloride (KCl 10% Elixir 20meq/15ml) 20 meq AD PRN PO POTASSIUM PROTOCOL 10/14/24 09:00 11/13/24 08:59 Potassium Chloride (KCl 10% Elixir 20meq/15ml) 20 meq AD PRN PO POTASSIUM PROTOCOL 10/05/24 23:30 10/11/24 08:37 DC 10/09/24 21:00 20 MEQ Propofol 100 ml @ 0 mls/hr AD PRN IV SEDATION 10/11/24 09:00 10/15/24 08:59 Sodium Bicarbonate (Sodium Bicarb 50meq 50ml Vial) 50 meq AD PRN IV OTHER[SEE DOSING INSTRUCTIONS] 10/11/24 09:00 10/14/24 08:59 DC 10/11/24 18:14 50 MEQ Sodium Chloride 500 ml @ 0 mls/hr AD IV 10/11/24 09:00 11/10/24 08:59 Sodium Chloride 500 ml @ 0 mls/hr Q0M IV 10/06/24 21:30 10/11/24 08:37 DC Sodium Chloride 1,000 ml @ 10 mls/hr ONCE IV 10/11/24 09:00 10/11/24 08:52 DC Sodium Chloride (NS Flush 10ml) 10 ml Q8H IVP 10/07/24 17:30 11/06/24 17:29 10/14/24 16:31 10 ML Sodium Chloride (NS Flush 10ml) 10 ml Q8H PRN IVP IV LINE FLUSH 10/11/24 09:00 11/10/24 08:59 Tramadol HCl (UltRAM) 25 mg Q6H PRN PO MODERATE PAIN (4-6) 10/10/24 14:30 10/11/24 08:37 DC 10/10/24 16:13 25 MG Tramadol HCl (UltRAM) 25 mg Q6H PRN PO MODERATE PAIN (4-6) 10/11/24 09:00 10/16/24 08:59 Tramadol HCl (UltRAM) 50 mg Q6H PRN PO SEVERE PAIN (7-10) 10/11/24 09:00 10/16/24 08:59 10/14/24 08:29 50 MG Vasopressin 40 units/Sodium Chloride 40 ml @ 0 mls/hr PROTOCOL IV 10/11/24 11:00 11/10/24 10:59 Vitamin B Complex (Vitamin B-12) 1,000 mcg DAILY PO 10/15/24 21:00 11/14/24 20:59 DIAGNOSTICS / RADIOLOGY: [ ] ASSESSMENT: Chest pain, POA Abnormal EKG, POA Elevated troponin, POA CKD stage IIIA, POA uncontrolled Diabetes mellitius type2, POA Hypertension POA Hypothyroidism POA Raynaud's phenomenon POA GI bleed resolved NSTEMI POA Status post CABG x2 on 10/11/2024 Postoperative AFib with RVR clinically insignificant PLAN: Follow Cardiothoracic recommendations and Cardiology recommendations Maintain electrolyte balance Incentive spirometry once extubated Follow hemoglobin closely and transfuse if it goes under 8 JOSEY JACOME MD Oct 14, 2024 19:46
[2024-10-14] MEDS: atorVAStatin 40 MG TABLET PO SCH (20:08)
--- NOTE | 2024-10-14 23:48 | PN ---
Ms. Mac is a 79-year-old female that was seen and examined today on 10/05/2024. Patient is a good historian and personal health. Patient states that she came to the emergency department with a chief complaint of bilateral chest wall pain closer to the axilla and pain also radiates to the back. Onset was 9:30 a.m.. Character is described as throbbing. Symptoms are aggravated with palpation and movement. Symptoms are not alleviated with a chiropractic adjustment in fact symptoms became worse after a chiropractic adjustment. There was no alleviating factors Duration of pain is on and off. Patient denies any associated shortness of breath, nausea, vomiting, headache, dizziness. Patient with anemia and thrombocytopenia. Patient complaining of pain at the site of the surgery. There is a chest tube in place. Patient is Rosa catheter in place. There is no obvious bleeding. Past Medical History ADDITIONAL PAST MEDICAL HISTORY: [Hypertension, hypothyroidism, Diabetes mellitius type2] SOCIAL HISTORY: [Negative for smoking, alcohol use, drug use. Patient lives with the [facility]. Patient has good access to health care through her insurance. Patient denies difficulty paying her bills. 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 Patient is typically independent of all her ADLs.] SURGICAL HISTORY: [Thyroidectomy] Review of Systems Review of Systems General: No Fever, No Chills, No Night Sweats, No Fatigue, No Malaise, No Appetite, No Other HEENT: No Head Aches, No Visual Changes, No Eye Pain, No Ear Pain, No Dysphasia, No Sinus Congestion, No Post Nasal Drip, No Sore Throat, No Other Pulmonary: No Dyspnea, No Cough, No Pleuritic Chest Pain, No Other Cardiovascular: Chest Pain; No: Palpitations, Orthopnea, Paroxysmal Noc. Dyspnea, Edema, Lt Headedness, Other Gastrointestinal: No: Nausea, Vomiting, Abdominal Pain, Diarrhea, Constipation, Melena, Hematochezia, Other Genitourinary: No Dysuria, No Frequency, No Incontinence, No Hematuria, No Retention, No Other Musculoskeletal: back pain; No: other, neck pain, shoulder pain, arm pain, hand pain, leg pain, foot pain Skin: No Urticaria, No Rash, No Other Neurological: No: Weakness, Numbness, Incoordination, Change in speech, Confusion, Seizures, Other Allergies: Coded Allergies: No Known Drug Allergies (Unverified Allergy, Unknown, 06/16/19) Scheduled Azithromycin (Azithromycin), 500 MG PO DAILY Levofloxacin (Levofloxacin), 500 MG PO DAILY Levothyroxine Sodium (Levothyroxine Sodium), 100 MCG PO DAILYBKFST, (Reported) Metronidazole (Metronidazole), 500 MG PO TID Pantoprazole Sodium (Protonix), 40 MG PO BID Valsartan/Hydrochlorothiazide (Valsartan-Hctz 320-25 mg Tab), 1 TAB PO HS, (Reported) Exam Exam Vital Signs Vital Signs Date Time Temp Pulse Resp B/P (MAP) Pulse Ox O2 Delivery O2 Flow Rate FiO2 10/05/24 21:54 97.7 70 22 154/71 100 Room Air* 0 21 General Appearance: Alert, Oriented X3, Cooperative, No acute distress HEENT: Atraumatic, EOMI, Mucous membr. moist/pink Respiratory: Clear to auscultation, Normal air movement, NL respiratory effort Cardiovascular: Regular rate, Regular rhythm, Normal S1, Normal S2 Abdominal: Normal bowel sounds, Soft, No tenderness Extremities: No edema Skin: No significant lesion Neuro: Normal speech, Strength at 5/5 X4 ext, Sensation intact, Cranial nerves 3-12 NL Psych/Mental Status: Mental status NL, Mood NL, Thoughts/Content NL ASSESSMENT: [ 1. Coronary artery disease status post surgery 2. Anemia 3. Thrombocytopenia 4. Chronic renal insufficiency 5. Hypertension 6. Hypothyroidism 7. Postoperative A-fib with RVR with the patient on amiodarone Plan 1. Peripheral blood smear showed red blood cells to be normocytic normochromic. There was no fragment cell or schistocyte. There is no teardrop cell. There is no rouleaux phenomena. There is no pelger-Huet cell. White blood cell with no blasts. There is a clumping of the platelet. Manual platelet count within normal. It is more than 200,000. 2. There was hypersegmented neutrophils. This patient to be started on folic acid 1 mg p.o. daily and vitamin B12 1000 mcg p.o. daily. 3. There was nucleated red blood cell with teardrop cell. This patient could have autoimmune hemolytic anemia. Will ask for direct Shayla to be done on this patient. If it is positive this patient will be started on high-dose dexamethasone. If it is negative then this patient could have myeloproliferative disorder with the patient could benefit from bone marrow biopsy as outpatient. 4. Continue care as per surgery 5. Patient with iron deficiency anemia. This patient to be started on IV iron daily for at least 3 to 5 days then this patient will need oral iron supplement Vitals/Labs Vital Signs Date Time Temp Pulse Resp B/P (MAP) Pulse Ox O2 Delivery O2 Flow Rate FiO2 10/14/24 21:45 71 21 98/29 (52) 100 98/41 (60) 10/14/24 20:00 Nasal Cannula* 2 28 10/14/24 20:00 98.1 Laboratory Tests 10/14/24 04:51 10/14/24 11:11 10/14/24 19:54 Medications Current Medications Morphine Sulfate 2 mg ONCE ONCE IVP Last administered on 10/05/24at 22:22; Start 10/05/24 at 22:30; Stop 10/05/24 at 22:31; Status DC Ketorolac Tromethamine 15 mg ONCE ONCE IV Last administered on 10/05/24at 23:34; Start 10/05/24 at 22:30; Stop 10/05/24 at 22:31; Status DC Nitroglycerin 0.4 mg AD PRN SL; Start 10/05/24 at 22:30; Stop 10/11/24 at 08:37; Status DC Aspirin 162 mg ONCE ONCE PO Last administered on 10/05/24at 23:32; Start 10/05/24 at 23:30; Stop 10/05/24 at 23:31; Status DC Aspirin 81 mg DAILY PO Last administered on 10/14/24at 08:25; Start 10/06/24 at 09:00; Stop 11/05/24 at 08:59 Nitroglycerin 0.5 inch Q8H TD Last administered on 10/10/24at 22:37; Start 10/05/24 at 23:30; Stop 10/11/24 at 08:37; Status DC Ondansetron HCl 4 mg Q6H PRN IV; Start 10/05/24 at 23:30; Stop 10/11/24 at 08:37; Status DC Heparin Sodium (Porcine) 5,000 unit BID SQ; Start 10/06/24 at 09:00; Stop 10/06/24 at 06:29; Status DC Pantoprazole Sodium 40 mg DAILY PO Last administered on 10/10/24at 09:00; Start 10/06/24 at 09:00; Stop 10/11/24 at 08:37; Status DC Acetaminophen 650 mg Q6H PRN PO Last administered on 10/10/24at 06:06; Start 10/05/24 at 23:30; Stop 10/14/24 at 09:10; Status DC Insulin Human Regular INSULIN SLIDING SCAL... ACHS SQ; Start 10/06/24 at 07:30; Stop 10/11/24 at 08:37; Status DC Potassium Chloride 100 ml @ 100 mls/hr AD PRN IV; Start 10/05/24 at 23:30; Stop 10/11/24 at 08:37; Status DC Potassium Chloride 20 meq AD PRN PO Last administered on 10/09/24at 21:00; Start 10/05/24 at 23:30; Stop 10/11/24 at 08:37; Status DC Potassium Chloride 20 meq AD PRN PO; Start 10/05/24 at 23:30; Stop 10/11/24 at 08:37; Status DC Magnesium Sulfate 50 ml @ 0 mls/hr PROTOCOL PRN IV; Start 10/05/24 at 23:30; Stop 10/11/24 at 08:37; Status DC Heparin Sodium (Porcine) *calculation based on ACTUAL B... AD PRN IV Last administered on 10/06/24at 07:19; Start 10/06/24 at 07:30; Stop 10/10/24 at 08:27; Status DC Heparin Sodium/ Dextrose 250 ml @ 0 mls/hr Q6H IV Last administered on 10/08/24at 14:20; Start 10/06/24 at 07:30; Stop 10/10/24 at 08:17; Status DC Atorvastatin Calcium 40 mg ONCE ONCE PO Last administered on 10/06/24at 21:22; Start 10/06/24 at 21:30; Stop 10/06/24 at 21:31; Status DC Clopidogrel Bisulfate 75 mg ONCE ONCE PO Last administered on 10/06/24at 21:22; Start 10/06/24 at 21:30; Stop 10/06/24 at 21:31; Status DC Metoprolol Tartrate 12.5 mg BID PO Last administered on 10/11/24at 06:32; Start 10/07/24 at 09:00; Stop 10/11/24 at 08:37; Status DC Sodium Chloride 500 ml @ 0 mls/hr Q0M IV; Start 10/06/24 at 21:30; Stop 10/11/24 at 08:37; Status DC Lidocaine HCl 20 ml STK-MED ONCE .ROUTE; Start 10/07/24 at 16:23; Stop 10/07/24 at 16:23; Status DC Iohexol 75 ml STK-MED ONCE IV; Start 10/07/24 at 16:23; Stop 10/07/24 at 16:23; Status DC Heparin Sodium (Porcine) 10,000 unit STK-MED ONCE .ROUTE; Start 10/07/24 at 16:23; Stop 10/07/24 at 16:23; Status DC Heparin Sodium/ Sodium Chloride 1,000 ml @ As Directed STK-MED ONCE IV; Start 10/07/24 at 16:23; Stop 10/07/24 at 16:23; Status DC Nitroglycerin 50 mg STK-MED ONCE .ROUTE; Start 10/07/24 at 16:23; Stop 10/07/24 at 16:23; Status DC Fentanyl Citrate 100 mcg STK-MED ONCE .ROUTE; Start 10/07/24 at 16:24; Stop 10/07/24 at 16:24; Status DC Midazolam HCl 2 mg STK-MED ONCE .ROUTE; Start 10/07/24 at 16:24; Stop 10/07/24 at 16:24; Status DC Nicardipine HCl 25 mg STK-MED ONCE IV; Start 10/07/24 at 16:24; Stop 10/07/24 at 16:24; Status DC Sodium Chloride 10 ml Q8H IVP Last administered on 10/14/24at 16:31; Start 10/07/24 at 17:30; Stop 11/06/24 at 17:29 Pharmacy Profile Note 1 each ONCE MISC Last administered on 10/07/24at 23:37; Start 10/07/24 at 17:30; Stop 10/08/24 at 07:12; Status DC Atorvastatin Calcium 20 mg HS PO Last administered on 10/10/24at 20:55; Start 10/08/24 at 21:00; Stop 10/11/24 at 08:37; Status DC Levothyroxine Sodium 100 mcg SYN PO Last administered on 10/14/24at 06:54; Start 10/09/24 at 06:30; Stop 11/08/24 at 06:29 Heparin Sodium/ Dextrose 250 ml @ 0 mls/hr Q6H IV; Start 10/10/24 at 09:00; Stop 10/10/24 at 08:26; Status DC Cefazolin Sodium 2 gm ONCALL PRN IVP; Start 10/10/24 at 12:00; Stop 10/12/24 at 11:59; Status DC Tramadol HCl 25 mg Q6H PRN PO Last administered on 10/10/24at 16:13; Start 10/10/24 at 14:30; Stop 10/11/24 at 08:37; Status DC Cyclobenzaprine HCl 5 mg TID PRN PO; Start 10/10/24 at 14:30; Stop 10/11/24 at 08:37; Status DC Epinephrine HCl 10 mg/Sodium Chloride 250 ml @ 0 mls/hr AD PRN IV; Start 10/11/24 at 07:00; Stop 10/11/24 at 09:01; Status DC Norepinephrine Bitartrate 250 ml @ 0 mls/hr AD PRN IV; Start 10/11/24 at 07:00; Stop 10/11/24 at 09:03; Status DC Aminocaproic Acid 90406 mg/Sodium Chloride 480 ml @ 0 mls/hr AD PRN IV; Start 10/11/24 at 07:00; Stop 11/10/24 at 06:59 Cefazolin Sodium 1 gm STK-MED ONCE .ROUTE; Start 10/11/24 at 06:50; Stop 10/11/24 at 06:51; Status DC Heparin Sodium/ Sodium Chloride 500 ml @ As Directed STK-MED ONCE IV; Start 10/11/24 at 06:51; Stop 10/11/24 at 06:51; Status DC Papaverine HCl 60 mg STK-MED ONCE .ROUTE; Start 10/11/24 at 06:51; Stop 10/11/24 at 06:51; Status DC Cefazolin Sodium 2 gm STK-MED ONCE .ROUTE; Start 10/11/24 at 06:53; Stop 10/11/24 at 06:54; Status DC Sodium Chloride 1,000 ml @ As Directed STK-MED ONCE IV; Start 10/11/24 at 06:53; Stop 10/11/24 at 06:54; Status DC Protamine Sulfate 250 mg STK-MED ONCE IV; Start 10/11/24 at 07:56; Stop 10/11/24 at 07:56; Status DC Lidocaine HCl 100 mg STK-MED ONCE .ROUTE; Start 10/11/24 at 07:56; Stop 10/11/24 at 07:56; Status DC Heparin Sodium (Porcine) 10,000 unit STK-MED ONCE .ROUTE; Start 10/11/24 at 07:56; Stop 10/11/24 at 07:56; Status DC Epinephrine HCl 1 mg STK-MED ONCE .ROUTE; Start 10/11/24 at 07:56; Stop 10/11/24 at 07:56; Status DC Sodium Bicarbonate 200 ml @ As Directed STK-MED ONCE .ROUTE; Start 10/11/24 at 07:56; Stop 10/11/24 at 07:56; Status DC Norepinephrine Bitartrate 4 mg STK-MED ONCE IV; Start 10/11/24 at 07:56; Stop 10/11/24 at 07:56; Status DC Fentanyl Citrate 1,000 mcg STK-MED ONCE IJ; Start 10/11/24 at 07:56; Stop 10/11/24 at 07:57; Status DC Propofol 200 mg STK-MED ONCE IV; Start 10/11/24 at 07:57; Stop 10/11/24 at 07:57; Status DC Midazolam HCl 2 mg STK-MED ONCE .ROUTE; Start 10/11/24 at 07:57; Stop 10/11/24 at 07:57; Status DC Rocuronium [place] 50 mg STK-MED ONCE .ROUTE; Start 10/11/24 at 07:57; Stop 10/11/24 at 07:57; Status DC Ketamine HCl 50 mg STK-MED ONCE .ROUTE; Start 10/11/24 at 07:57; Stop 10/11/24 at 07:58; Status DC Nitroglycerin/ Dextrose 1 ml @ As Directed STK-MED ONCE .ROUTE; Start 10/11/24 at 08:27; Stop 10/11/24 at 08:27; Status DC Atorvastatin Calcium 40 mg HS PO Last administered on 10/13/24at 20:32; Start 10/11/24 at 21:00; Stop 10/14/24 at 09:11; Status DC Acetaminophen 1,000 mg Q6H6 IV Last administered on 10/12/24at 05:06; Start 10/11/24 at 12:00; Stop 10/12/24 at 11:59; Status DC Aspirin 81 mg ONCE ONCE NG; Start 10/11/24 at 12:00; Stop 10/11/24 at 08:42; Status DC Docusate Sodium 100 mg BID PO Last administered on 10/14/24at 20:09; Start 10/12/24 at 09:00; Stop 11/11/24 at 08:59 Lactulose 20 gm BID PRN PO; Start 10/11/24 at 09:00; Stop 11/10/24 at 08:59 Furosemide 20 mg Q12H PO Last administered on 10/14/24at 20:08; Start 10/13/24 at 09:00; Stop 11/12/24 at 08:59 Furosemide 20 mg Q12H IV Last administered on 10/12/24at 21:18; Start 10/12/24 at 09:00; Stop 10/13/24 at 08:59; Status DC Enoxaparin Sodium 30 mg DAILY SQ; Start 10/14/24 at 09:00; Stop 10/11/24 at 14:00; Status DC Metoprolol Tartrate 12.5 mg BID PO Last administered on 10/14/24at 20:08; Start 10/13/24 at 09:00; Stop 11/12/24 at 08:59 Magnesium Hydroxide 30 ml DAILY PRN PO; Start 10/11/24 at 09:00; Stop 11/10/24 at 08:59 Dexmedetomidine/ Sodium Chloride 400 mcg PROTOCOL IV; Start 10/11/24 at 09:00; Stop 10/12/24 at 08:59; Status DC Acetaminophen 650 mg Q6H PRN PO; Start 10/11/24 at 09:00; Stop 11/10/24 at 08:59 Sodium Chloride 1,000 ml @ 10 mls/hr ONCE IV; Start 10/11/24 at 09:00; Stop 10/11/24 at 08:52; Status DC Sodium Chloride 10 ml Q8H PRN IVP; Start 10/11/24 at 09:00; Stop 11/10/24 at 08:59 Morphine Sulfate 0.5 mg Q2H PRN IV; Start 10/11/24 at 09:00; Stop 10/12/24 at 08:59; Status DC Morphine Sulfate 1 mg Q2H PRN IV; Start 10/11/24 at 09:00; Stop 10/18/24 at 08:59 Acetaminophen 650 mg Q4H PRN RC; Start 10/11/24 at 09:00; Stop 11/10/24 at 08:59 Ondansetron HCl 4 mg Q6H PRN IV Last administered on 10/13/24at 08:20; Start 10/11/24 at 09:00; Stop 11/10/24 at 08:59 Sodium Chloride 500 ml @ 0 mls/hr AD IV; Start 10/11/24 at 09:00; Stop 11/10/24 at 08:59 Nitroglycerin/ Dextrose 0 ml @ 0 mls/hr AD IV Last administered on 10/11/24at 12:00; Start 10/11/24 at 09:00; Stop 10/14/24 at 08:59; Status DC Propofol 100 ml @ 0 mls/hr AD PRN IV; Start 10/11/24 at 09:00; Stop 10/15/24 at 08:59 Norepinephrine Bitartrate 250 ml @ 0 mls/hr AD PRN IV Last administered on 10/12/24at 08:08; Start 10/11/24 at 09:00; Stop 11/10/24 at 08:59 Epinephrine HCl 10 mg/Sodium Chloride 250 ml @ 7.716 mls/ hr AD PRN IV; Start 10/11/24 at 09:00; Stop 10/16/24 at 08:59 Aminocaproic Acid 59072 mg/Sodium Chloride 310 ml @ 25 mls/hr AD IV; Start 10/11/24 at 09:00; Stop 10/11/24 at 08:54; Status DC Calcium Gluconate 1 gm/Sodium Chloride 60 ml @ 200 mls/hr AD PRN IV Last administered on 10/13/24at 17:20; Start 10/11/24 at 09:00; Stop 11/10/24 at 08:59 Magnesium Sulfate 50 ml @ 12.5 mls/hr AD PRN IV Last administered on 10/12/24at 23:52; Start 10/11/24 at 09:00; Stop 11/10/24 at 08:59 Potassium Chloride 100 ml @ 100 mls/hr AD PRN IV Last administered on 10/13/24at 16:11; Start 10/11/24 at 09:00; Stop 11/10/24 at 08:59 Potassium Phosphate 250 ml @ 42 mls/hr AD PRN IV; Start 10/11/24 at 09:00; Stop 11/10/24 at 08:59 Albumin Human 250 ml @ 0 mls/hr AD PRN IV Last administered on 10/11/24at 23:20; Start 10/11/24 at 09:00; Stop 10/11/24 at 23:20; Status DC Acetaminophen 650 mg Q4H PRN PO; Start 10/11/24 at 09:00; Stop 11/10/24 at 08:59 Insulin Human Regular 100 unit/ Sodium Chloride 100 ml @ 0 mls/hr AD IV Last administered on 10/11/24at 23:19; Start 10/11/24 at 09:00; Stop 10/13/24 at 08:59; Status DC Cefazolin Sodium 2 gm Q8H IVPB Last administered on 10/12/24at 06:21; Start 10/11/24 at 14:00; Stop 10/12/24 at 06:01; Status DC Tramadol HCl 25 mg Q6H PRN PO; Start 10/11/24 at 09:00; Stop 10/16/24 at 08:59 Tramadol HCl 50 mg Q6H PRN PO Last administered on 10/14/24at 08:29; Start 10/11/24 at 09:00; Stop 10/16/24 at 08:59 Famotidine 20 mg BID IV; Start 10/11/24 at 09:00; Stop 10/11/24 at 09:03; Status DC Sodium Bicarbonate 50 meq AD PRN IV Last administered on 10/11/24at 18:14; Start 10/11/24 at 09:00; Stop 10/14/24 at 08:59; Status DC Dextrose 50 ml AD PRN IV; Start 10/11/24 at 09:00; Stop 10/13/24 at 07:52; Status DC Glucagon 1 mg AD PRN IM; Start 10/11/24 at 09:00; Stop 10/13/24 at 07:52; Status DC Sodium Chloride 1,000 ml @ 10 mls/hr ONCE ONCE IV Last administered on 10/11/24at 10:30; Start 10/11/24 at 09:00; Stop 10/14/24 at 09:10; Status DC Famotidine 20 mg Q24H IV Last administered on 10/14/24at 08:24; Start 10/11/24 at 09:30; Stop 11/10/24 at 08:59 Vasopressin 20 units STK-MED ONCE .ROUTE; Start 10/11/24 at 09:42; Stop 10/11/24 at 09:42; Status DC Ephedrine Sulfate 50 mg STK-MED ONCE .ROUTE; Start 10/11/24 at 09:42; Stop 10/11/24 at 09:43; Status DC Protamine Sulfate 250 mg STK-MED ONCE IV; Start 10/11/24 at 09:54; Stop 10/11/24 at 09:54; Status DC Protamine Sulfate 50 mg STK-MED ONCE .ROUTE; Start 10/11/24 at 09:54; Stop 10/11/24 at 09:54; Status DC Heparin Sodium (Porcine) 10,000 unit STK-MED ONCE .ROUTE; Start 10/11/24 at 09:54; Stop 10/11/24 at 09:54; Status DC Vasopressin 40 units/Sodium Chloride 40 ml @ 0 mls/hr PROTOCOL IV; Start 10/11/24 at 11:00; Stop 11/10/24 at 10:59 Lidocaine HCl/ Dextrose 250 ml @ 0 mls/hr AD PRN IV Last administered on 10/12/24at 14:44; Start 10/11/24 at 11:00; Stop 10/12/24 at 19:18; Status DC Lidocaine HCl/ Dextrose 250 ml @ As Directed STK-MED ONCE IV; Start 10/11/24 at 10:57; Stop 10/11/24 at 10:57; Status DC Amiodarone HCl 150 mg/Dextrose 103 ml @ 618 mls/hr ONCE IV Last administered on 10/11/24at 11:57; Start 10/11/24 at 12:00; Stop 10/11/24 at 12:09; Status DC Amiodarone HCl 360 mg/Dextrose 207.2 ml @ 33.3 mls/hr AD IV Last administered on 10/11/24at 12:04; Start 10/11/24 at 12:00; Stop 10/12/24 at 19:18; Status DC Amiodarone HCl 540 mg/Dextrose 310.8 ml @ 16.7 mls/hr [id number] IV Last administered on 10/11/24at 18:20; Start 10/11/24 at 12:00; Stop 11/10/24 at 11:59 Atropine Sulfate 1 mg STK-MED ONCE IVP; Start 10/11/24 at 12:42; Stop 10/11/24 at 12:42; Status DC Iohexol 35,000 mg STK-MED ONCE IV; Start 10/11/24 at 12:42; Stop 10/11/24 at 12:42; Status DC Heparin Sodium (Porcine) 10,000 unit STK-MED ONCE .ROUTE; Start 10/11/24 at 12:42; Stop 10/11/24 at 12:42; Status DC Heparin Sodium/ Sodium Chloride 1,000 ml @ As Directed STK-MED ONCE IV; Start 10/11/24 at 12:42; Stop 10/11/24 at 12:43; Status DC Nitroglycerin 50 mg STK-MED ONCE .ROUTE; Start 10/11/24 at 12:42; Stop 10/11/24 at 12:43; Status DC Lidocaine HCl 20 ml STK-MED ONCE .ROUTE; Start 10/11/24 at 12:43; Stop 10/11/24 at 12:43; Status DC Bivalirudin 250 mg STK-MED ONCE IV; Start 10/11/24 at 13:27; Stop 10/11/24 at 13:27; Status DC Iohexol 35,000 mg STK-MED ONCE IV; Start 10/11/24 at 13:34; Stop 10/11/24 at 13:34; Status DC Clopidogrel Bisulfate 300 mg STK-MED ONCE .ROUTE; Start 10/11/24 at 13:45; Stop 10/11/24 at 13:47; Status DC Clopidogrel Bisulfate 75 mg DAILY PO Last administered on 10/14/24at 08:25; Start 10/12/24 at 09:00; Stop 11/11/24 at 08:59 Heparin Sodium/ Dextrose 250 ml @ 0 mls/hr PROTOCOL IV Last administered on 10/11/24at 16:14; Start 10/11/24 at 16:00; Stop 10/12/24 at 19:18; Status DC Dextrose 50 ml AD PRN IV; Start 10/11/24 at 15:00; Stop 11/10/24 at 14:59 Glucagon 1 mg AD PRN IM; Start 10/11/24 at 15:00; Stop 11/10/24 at 14:59 Heparin Sodium/ Dextrose 250 ml @ 0 mls/hr PROTOCOL IV; Start 10/11/24 at 16:00; Stop 10/11/24 at 15:24; Status DC Cefazolin Sodium 2 gm STK-MED ONCE IVPB Last administered on 10/11/24at 08:30; Start 10/11/24 at 08:30; Stop 10/11/24 at 20:01; Status DC Cefazolin Sodium 1 gm STK-MED ONCE IRRIG Last administered on 10/11/24at 09:00; Start 10/11/24 at 09:00; Stop 10/11/24 at 20:01; Status DC Papaverine HCl 60 mg STK-MED ONCE IRRIG Last administered on 10/11/24at 09:00; Start 10/11/24 at 09:00; Stop 10/11/24 at 20:01; Status DC Heparin Sodium (Porcine) 5,000 unit STK-MED ONCE IRRIG Last administered on 10/11/24at 09:00; Start 10/11/24 at 09:00; Stop 10/11/24 at 20:01; Status DC Furosemide 20 mg ONCE ONCE IV; Start 10/12/24 at 02:30; Stop 10/12/24 at 02:31; Status DC Furosemide 20 mg STK-MED ONCE .ROUTE Last administered on 10/12/24at 02:20; Start 10/12/24 at 02:16; Stop 10/12/24 at 02:17; Status DC Albumin Human 250 ml @ As Directed STK-MED ONCE IV Last administered on 10/12/24at 21:19; Start 10/12/24 at 17:49; Stop 10/12/24 at 17:50; Status DC Amiodarone HCl 200 mg DAILY PO Last administered on 10/14/24at 08:25; Start 10/13/24 at 09:00; Stop 11/12/24 at 08:59 Insulin Human Regular INSULIN SLIDING SCAL... ACHS SQ; Start 10/13/24 at 11:30; Stop 11/12/24 at 11:29 Potassium Chloride 20 meq AD PRN PO; Start 10/14/24 at 09:00; Stop 11/13/24 at 08:59 Atorvastatin Calcium 40 mg HS PO Last administered on 10/14/24at 20:08; Start 10/14/24 at 21:00; Stop 11/10/24 at 20:59 Iron Sucrose 200 mg ONCE ONCE IV; Start 10/17/24 at 18:00; Stop 10/14/24 at 18:16; Status DC Folic Acid 1 mg DAILY PO; Start 10/15/24 at 21:00; Stop 11/14/24 at 20:59 Vitamin B Complex 1,000 mcg DAILY PO; Start 10/15/24 at 21:00; Stop 11/14/24 at 20:59 Iron Sucrose 200 mg AD IV; Start 10/14/24 at 18:30; Stop 10/14/24 at 18:34; Status DC Iron Sucrose 200 mg Q24H IV Last administered on 10/14/24at 18:41; Start 10/14/24 at 19:00; Stop 10/16/24 at 19:01 NIKHIL FLETCHER MD Oct 14, 2024 23:47
[2024-10-15] VITALS (45 sets, daily range): BP systolic 89–123; BP diastolic 31–58; PULSE 67–88; RESP 4–35; TEMP 97.9–98.4; O2SAT 97–98
[2024-10-15 04:40] LABS: HEMATOCRIT 24.3 % (36-48); MEAN CORPUSCULAR HEMOGLOBIN 29.2 pg (27.0-33.0); MEAN CORPUSCULAR HGB CONC 32.9 g/dL (32.0-36.0); MEAN CORPUSCULAR VOLUME 88.7 fL (79-99); NUCLEATED RED BLOOD CELLS 2.4 % (0.0-0.19); RED BLOOD CELL COUNT(AUTO) 2.74 MIL/uL (4.00-5.50); RED CELL DISTRIBUTION WIDTH 15.7 % (11.0-15.5); WHITE BLOOD COUNT (AUTO) 13.2 K/uL (4.8-10.8)
[2024-10-15 04:44] LABS: CREATININE 0.8 mg/dL (0.5-1.0); POTASSIUM 3.5 mmol/L (3.5-5.1)
[2024-10-15] MEDS: PoTASSium chl 10% ELIXIR 20MEQ 20 MEQ/15 ML UDCUP PO PRN (06:04)
--- NOTE | 2024-10-15 10:09 | PN ---
"[facility] PROGRESS NOTE Date Patient Seen: Oct 15, 2024 Time of Visit: 10:09 Supervising Physician: Dr. Busch Primary Care Physician: Maine Euceda MD Outpatient Specialists: Inpatient Consults: CV Surgery Dr Licona, Dr Ravi MD, BIS Attending physician|: Kali Carroll MD PROBLEM LIST: NSTEMI, POA, Multivessel CAD status post CABG x2 on 10/11/24 (Dr Licona) IABP rt femoral, removed 10/12/24 Cardiomyopathy with EF of 35-40% POA Postoperative AFib with RVR on amiodarone drip and lidocaine drip CKD stage IIIA, POA hyperglycemia in the presence of type 2 diabetes mellitus, POA Hypertension Hypothyroidism Raynaud's phenomenon GI bleed resolved INTERVAL HISTORY: Day # 3 s/p CABG. pt is awake alert and oriented. No major overnight events reported per RN. Patient denies any chest pain, palpitations or shortness breath. She is off drips today and hemodynamically stable with a blood pressure 120/49 heart rate in the 70s respiratory rate of 12 saturating 98% with 2 L via nasal cannula. Patient remains in reverse Trendelenburg to has a she is to left femoral area bilateral pedal pulses present plus one. Chest tubes continue in place drained 340 mL in the last 24 hours urine output was 2.2 L and balance was-1.2 L in 24 hours. WBCs trending down as expected 15.3 today H&H 7.6/23.4 we will transfuse 1 unit of PRBCs. Chest x-ray for today shows improving postop chest. Decreased vascular congestion. We will continue to follow CV protocol. 10/15/2024: At the time of my evaluation, the patient was sitting up to the bedside chair , she is awake alert and oriented x3. Currently on nasal cannula at 2 liters/minute. Patient remains with chest tube in place. On the monitor, the patient is the patient is hemodynamically stable. Remains on epinephrine, Levophed and vaso drip. Cordis still in place. The patient is feeding orally. Chemistry panel showed a sodium of 141 potassium of 3.5, chloride of one six, CO2 of 29, BUN 41, creatinine of 0.8 and a glucose of 103. Patient has a Rosa catheter in place and output of 800 and past 24 hours with a net balance of 431.0. This constitutes a average urinary output of 0.62 mL/kg/hr. On hematology does not WBC of 13.2, H and H 8.0/24.3 and a platelet count of 121. The staff nurse reports no acute events overnight. No other complaint. REVIEW OF SYSTEMS: 12 point ROS reviewed with patient. Pertinent positives mentioned above. Otherwise negative. PHYSICAL EXAM: GENERAL: Post CABG , recovering HEENT: Sclera non icteric, moist mucosa NECK: Supple, no JVD, trachea midline Rt IJ LUNGS: Clear breath sounds to all lobes bilaterally. No wheezes HEART: Regular rate and rhythm. Normal S1 and S2, without murmurs , dressing to midsternal area clean dry and intact. Chest tube ABD: Abdomen soft, nontender. Bowel sounds present EXT: No clubbing cyanosis or edema,left fermoral sheat still in place carlos pedal pulses +1 palpable. NEURO: GCS 15 no focal weakness. Vital Signs (last 8hr) Date Time Temp Pulse Resp B/P (MAP) Pulse Ox O2 Delivery O2 Flow Rate FiO2 10/15/24 06:45 76 15 108/40 96 Nasal Cannula 2.0 10/15/24 06:30 76 13 103/45 98 Nasal Cannula 2.0 10/15/24 06:00 75 116/40 97 Nasal Cannula 2.0 10/15/24 05:30 75 103/34 99 Nasal Cannula 2.0 10/15/24 05:00 82 22 118/39 99 Nasal Cannula 2.0 10/15/24 04:45 75 13 99/50 97 Nasal Cannula 2.0 10/15/24 04:30 75 13 97/31 99 Nasal Cannula 2.0 10/15/24 04:00 97 Nasal Cannula* 2 28 10/15/24 04:00 73 92/31 97 10/15/24 03:45 97.9 81 4 118/54 98 Nasal Cannula 2.0 10/15/24 03:30 76 7 109/38 99 10/15/24 03:00 76 15 96/31 99 Nasal Cannula 2.0 10/15/24 02:45 77 14 96/47 98 10/15/24 02:30 78 13 97/34 100 Nasal Cannula 2.0 LABS: Hematology Labs: Test 10/15/24 04:02 10/14/24 11:11 Range/Units White Blood Count 13.2 H 4.8-10.8 K/uL Red Blood Count 2.74 L 4.00-5.50 MIL/uL Hemoglobin 8.0 L 12.0-16.0 g/dL Hematocrit 24.3 L 36-48 % Mean Corpuscular Volume 88.7 79-99 fL Mean Corpuscular Hemoglobin 29.2 27.0-33.0 pg Mean Corpuscular Hemoglobin Concent 32.9 32.0-36.0 g/dL Red Cell Distribution Width 15.7 H 11.0-15.5 % Platelet Count 121 L 130-400 K/uL Mean Platelet Volume 11.4 H 7.5-10.5 fL Nucleated Red Blood Cells 2.4 H 0.0-0.19 % Immature Granulocyte % (Auto) 0.8 0-1 % Neutrophils (%) (Auto) 85.7 H 40.0-77.0 % Lymphocytes (%) (Auto) 7.6 L 21.0-51.0 % Monocytes (%) (Auto) 5.5 3.0-13.0 % Eosinophils (%) (Auto) 0.2 0.0-8.0 % Basophils (%) (Auto) 0.2 0.0-5.0 % Neutrophils # (Auto) 13.1 H 1.8-7.7 K/uL Lymphocytes # (Auto) 1.2 1.0-4.8 K/uL Monocytes # (Auto) 0.8 0.1-1.0 K/uL Eosinophils # (Auto) 0.03 0.00-0.70 K/uL Basophils # (Auto) 0.03 0.00-0.20 K/uL Absolute Immature Granulocyte (auto 0.13 0-1 K/uL Chemistry Labs: Test 10/15/24 04:02 10/14/24 19:55 10/14/24 11:11 Range/Units Sodium Level 141 136-145 mmol/L Potassium Level 3.5 3.5-5.1 mmol/L Chloride Level 106 101-111 mmol/L Carbon Dioxide Level 29 21-32 mmol/L Blood Urea Nitrogen 41 H 7-18 mg/dL Creatinine 0.8 0.5-1.0 mg/dL Glomerular Filtration Rate Calc 75 >90 mL/min Random Glucose 82 70-105 mg/dL Total Calcium 7.5 L 8.5-10.1 mg/dL Whole Blood Glucose 103 70-110 MG/DL Iron Level 36 L 50-170 mcg/dL Total Iron Binding Capacity 164 L 250-450 mcg/dL Percent Iron Saturation 21.9 L 22-44 % DIAGNOSTICS / RADIOLOGY RESULTS: [ ] PLAN Follow CT surgeon recommendations Follow cardiology recommendations Multimodal pain management Monitoring H&H Monitor chest tube output Chest x-ray in the morning Start SBT's as tolerated IABP managed by CV/Cardiology Monitor ABGs Transfuse if absolutely necessary to keep hemoglobin above 8 Maintain O2 sats greater than 92% Incentive spirometry once extubated Glycemic control with goal of 80-180 Referral for cardiac rehabilitation Speech to eval once patient is extubated monitor electrolytes: K Goal of 4 Magnesium goal of 2 Replace accordingly 10/15/2024: For now, going to continue current management for the patient. We will continue to follow the recommendations of the skirt trimmer. Also, we will titrate the drips, removed the Cordis and CT per the input of the CTS. We will remain attentive to any acute change in condition and intervene as necessary. We will monitor the patient's progress and response to management. We will continue to provide general supportive care, GI and DVT prophylaxis. Further orders per attending MD and hospital course. NEURO: Minimize central acting medications as possible. Fall Precautions. Well lighted room through the day and minimize interruptions through the night to prevent acute delirium. PULMONARY: Supplemental 02 as needed Titrate Fio2 to keep Spo2 > or = 90% DuoNebs and CPT as needed IS hourly while awake for pulmonary hygiene Out of bed to chair as tolerated CARDIOVASCULAR: Follow hemodynamics. Titrate vasopressor to keep MAP >65 or systolic blood pressure >95mmHg DIPS: Epinephrine LINES: Central line Chest tubes Arterial line GI & NUTRITION: Continue nutritional support Aspirations precautions Prokinetic agents and laxatives as needed KIDNEYS & ELECTROLYTES: Strict monitoring of intake and output Daily weights Avoid nephrotoxic agents Monitor electrolytes and replace as needed Goal urine output of 30mL/hr or 0.5mL/kg/hr Urine output: [ ] Fluid Balance: [ ] ENDOCRINE: Maintain blood glucose between 100-180 at all times. Insulin sliding scale for blood glucose management INFECTIOUS DISEASE: Trend temperature. Canales-culture if febrile. Micro: [ ] Antibiotics: [ ] Ancef x3 per CV protocol HEMATOLOGY & COAGULATION: Monitor H&H. Keep Hgb > 7 Transfuse 1 unit of PRBC for Hgb < 7 Transfuse 1 pack of platelets of platelets < 20, 000 Watch for any signs and symptoms of bleeding SKIN: Pressure ulcer prevention per facility protocol Rehab: PT/OT Prophylaxis: GI: Pepcid DVT: Ernst brown Code Status: Full Resuscitation Disposition: ICU Other: Total patient care time exceeds 60 minutes excluding all procedures. Case was discussed and seen with my supervising physician. The above plan was formulated and agreed upon. ROBBY FOX NP Oct 15, 2024 10:09"
--- NOTE | 2024-10-15 11:06 | HMCIMG ---
CHEST 1VW REASON: s/p CABG COMPARISON: None. FINDINGS: Heart size is normal. There is no vascular congestion. There is a small left pleural effusion, unchanged. Tubes and lines remain in place. There is no pneumothorax. IMPRESSION: 1. Stable postop chest.
--- NOTE | 2024-10-15 11:59 | PN ---
CARDIOLOGY Reason for consult: NSTEMI HPI/story at presentation: This is a pleasant 79-year-old female with past medical history as below presents for chest discomfort. Patient was having mostly back pain and bilateral shoulder pain that was present yesterday morning and then subsequently, was in the ER for further evaluation and had significant elevated troponins therefore, cardiology was consulted for further evaluation and management Subjective: 10/06/2024 no active cardiac complaints 10/07/2024 no chest pain 10/08/2024 no further symptoms 10/09/2024 no complaints 10/10/2024 no complaints 10/11/2024 intubated 10/13/2024 no complaints 10/14/2024 no complaints Past medical history: See below Allergies, Meds See chart Review of systems intubated 10/11/2024 Vitals see chart PHYSICAL EXAMINATION GENERAL: intubated 10/11/2024 HEENT: Nonicteric sclerae, non traumatic HEART: Regular rate and rhythm with no murmurs LUNGS:intubated 10/11/2024 ABDOMEN: No acute issues, non tender GENITAL, RECTAL: deferred SKIN: No rash NEUROLOGIC: intubated 10/11/2024 EXTREMITIES: No edema ASSESSMENT NSTEMI,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 Plan for cardiac catheterization tomorrow to further evaluate coronaries Echo pending. risk-benefit discussed extensively and patient wants to proceed. 10/07/2024 Cardiac catheterization today for further evaluation of non-STEMI. Risk-benefit discussed. Primary team addressing possible scleroderma given issues with dysphagia. No active chest pain at this time echo with EF of 35- 40%, on metoprolol aspirin - add statin 10/08/2024 No active cardiac complaints at this time, no further issues with chest or back pain, awaiting final decision from CV surgery regarding surgery. Continue maximal medical therapy. 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 There is a question of GI bleeding with dark stools. Will get an occult blood and hold heparin for now. On atorvastatin beta-estefania and aspirin, continue. Hemoglobin stable. Carotid duplex was negative. Seen and examined 10/04/2024 at around 5 PM 10/09/2024 Was previously evaluated CV surgery, timing of surgery to be determined. On statin beta-estefania aspirin. Labs okay, occult blood has been ordered and is still pending. No further issues with dark stools per report. Currently off anticoagulation. Seen and examined 10/09/2024 at around 1730 10/10/2024 Had an episode of chest discomfort/upper back pain, managed conservatively at this time, heparin was not started. Troponins are trending down. Potential plans for surgery tomorrow. Patient however, thinks this might be related to spinal issues. Seen and examined 10/10/2024 at around 0900 10/11/2024 I was called in the late morning today by Dr. العراقي with concerns of ST elevations after surgery. Patient was taken emergently to cardiac catheterization and underwent intervention to the LAD. Patient had an occluded WILSON. Postprocedure, patient was doing well with hemodynamic stability and improvement in pressor requirements. Potential plans for extubation also noted. Seen and examined 10/11/2024 multiple times 10/12/2024 Extubated, blood pressures are doing okay off pressors. Currently, plan is to get off the balloon pump and then reevaluate. On antiplatelet therapy, s/p PCI to the LAD yesterday in the setting of NSTEMI. Bypass. Recovering well. Family at bedside, questions answered. Plan to switch amiodarone to p.o., agree with stopping lidocaine. Anemia will need to be addressed, transfuse as needed. Seen and examined 10/12/2024 at around 1700 10/13/2024 Doing well, hemodynamic stable, not any pressors, had issues with hematoma from the balloon pump yesterday and did receive 1 unit of transfusion. Otherwise, doing well, states that she is on the left 24, not very ambulatory at this time. Asking to be able to get up hopefully, this can be accomplished tomorrow or day after once the left-sided sheath is out. Appreciate CV surgery, critical care. Currently on Plavix in spite of thrombocytopenia given recent PCI to the LAD. On Amio beta-estefania Lasix Plavix atorvastatin. No longer on lidocaine. Watch hemoglobin. Renal function slightly elevated as well but this is better than yesterday. 10/14/2024 Was on nitroglycerin during the mornings but blood pressures are now better off nitro. Otherwise, doing well. No active cardiac complaints at this time. Appreciate CV surgery. Critical care. Having issues with diarrhea, small, will need to be watched. Sheath to be removed later today hemoglobin being replaced oncology on board anemia. X-ray with improvement. Currently on metoprolol Lasix Plavix statin aspirin amiodarone from a cardiac standpoint. Seen and examined at around 10 AM 10/15/2024 Feeling better, no active cardiac complaints at this time. Art line has been removed. Sitting by the side of the bed today. Still feeling tired but improving. Physical therapy on board. Getting blood hematology on board, seen and examined 10/15/2024 at around 1130AM ATTESTATION I was involved substantially in the care of this patient Number and complexity of problems addressed: 1 acute illness taht is a threat to life or bodily function Amount and or complexity of data Review of prior external note(s) from each unique source: 2+ Ordering of each unique test : 0 Review of the result(s) of each unique test: 2+ Assessment requiring an independent historian(s): No Independent interpretation of test performed by another MD/QHCP/appropriate source (not separately reported) : No Discussion of management or test interpretation with external MD/QHCP/appropriate source (not separately reported) : yes, CVT surgery Risk status (cardiac, billing related): moderate Vitals/Labs Vital Signs Date Time Temp Pulse Resp B/P (MAP) Pulse Ox O2 Delivery O2 Flow Rate FiO2 10/15/24 10:33 79 18 N/Cannula Low lpm 24 10/15/24 08:15 97 2 10/15/24 06:45 108/40 10/15/24 03:45 97.9 Laboratory Tests 10/14/24 19:54 10/15/24 04:02 Medications Current Medications Morphine Sulfate 2 mg ONCE ONCE IVP Last administered on 10/05/24at 22:22; Start 10/05/24 at 22:30; Stop 10/05/24 at 22:31; Status DC Ketorolac Tromethamine 15 mg ONCE ONCE IV Last administered on 10/05/24at 23:34; Start 10/05/24 at 22:30; Stop 10/05/24 at 22:31; Status DC Nitroglycerin 0.4 mg AD PRN SL; Start 10/05/24 at 22:30; Stop 10/11/24 at 08:37; Status DC Aspirin 162 mg ONCE ONCE PO Last administered on 10/05/24at 23:32; Start 10/05/24 at 23:30; Stop 10/05/24 at 23:31; Status DC Aspirin 81 mg DAILY PO Last administered on 10/15/24at 09:24; Start 10/06/24 at 09:00; Stop 11/05/24 at 08:59 Nitroglycerin 0.5 inch Q8H TD Last administered on 10/10/24at 22:37; Start 10/05/24 at 23:30; Stop 10/11/24 at 08:37; Status DC Ondansetron HCl 4 mg Q6H PRN IV; Start 10/05/24 at 23:30; Stop 10/11/24 at 08:37; Status DC Heparin Sodium (Porcine) 5,000 unit BID SQ; Start 10/06/24 at 09:00; Stop 10/06/24 at 06:29; Status DC Pantoprazole Sodium 40 mg DAILY PO Last administered on 10/10/24at 09:00; Start 10/06/24 at 09:00; Stop 10/11/24 at 08:37; Status DC Acetaminophen 650 mg Q6H PRN PO Last administered on 10/10/24at 06:06; Start 10/05/24 at 23:30; Stop 10/14/24 at 09:10; Status DC Insulin Human Regular INSULIN SLIDING SCAL... ACHS SQ; Start 10/06/24 at 07:30; Stop 10/11/24 at 08:37; Status DC Potassium Chloride 100 ml @ 100 mls/hr AD PRN IV; Start 10/05/24 at 23:30; Stop 10/11/24 at 08:37; Status DC Potassium Chloride 20 meq AD PRN PO Last administered on 10/09/24at 21:00; Start 10/05/24 at 23:30; Stop 10/11/24 at 08:37; Status DC Potassium Chloride 20 meq AD PRN PO; Start 10/05/24 at 23:30; Stop 10/11/24 at 08:37; Status DC Magnesium Sulfate 50 ml @ 0 mls/hr PROTOCOL PRN IV; Start 10/05/24 at 23:30; Stop 10/11/24 at 08:37; Status DC Heparin Sodium (Porcine) *calculation based on ACTUAL B... AD PRN IV Last administered on 10/06/24at 07:19; Start 10/06/24 at 07:30; Stop 10/10/24 at 08:27; Status DC Heparin Sodium/ Dextrose 250 ml @ 0 mls/hr Q6H IV Last administered on 10/08/24at 14:20; Start 10/06/24 at 07:30; Stop 10/10/24 at 08:17; Status DC Atorvastatin Calcium 40 mg ONCE ONCE PO Last administered on 10/06/24at 21:22; Start 10/06/24 at 21:30; Stop 10/06/24 at 21:31; Status DC Clopidogrel Bisulfate 75 mg ONCE ONCE PO Last administered on 10/06/24at 21:22; Start 10/06/24 at 21:30; Stop 10/06/24 at 21:31; Status DC Metoprolol Tartrate 12.5 mg BID PO Last administered on 10/11/24at 06:32; Start 10/07/24 at 09:00; Stop 10/11/24 at 08:37; Status DC Sodium Chloride 500 ml @ 0 mls/hr Q0M IV; Start 10/06/24 at 21:30; Stop 10/11/24 at 08:37; Status DC Lidocaine HCl 20 ml STK-MED ONCE .ROUTE; Start 10/07/24 at 16:23; Stop 10/07/24 at 16:23; Status DC Iohexol 75 ml STK-MED ONCE IV; Start 10/07/24 at 16:23; Stop 10/07/24 at 16:23; Status DC Heparin Sodium (Porcine) 10,000 unit STK-MED ONCE .ROUTE; Start 10/07/24 at 16:23; Stop 10/07/24 at 16:23; Status DC Heparin Sodium/ Sodium Chloride 1,000 ml @ As Directed STK-MED ONCE IV; Start 10/07/24 at 16:23; Stop 10/07/24 at 16:23; Status DC Nitroglycerin 50 mg STK-MED ONCE .ROUTE; Start 10/07/24 at 16:23; Stop 10/07/24 at 16:23; Status DC Fentanyl Citrate 100 mcg STK-MED ONCE .ROUTE; Start 10/07/24 at 16:24; Stop 10/07/24 at 16:24; Status DC Midazolam HCl 2 mg STK-MED ONCE .ROUTE; Start 10/07/24 at 16:24; Stop 10/07/24 at 16:24; Status DC Nicardipine HCl 25 mg STK-MED ONCE IV; Start 10/07/24 at 16:24; Stop 10/07/24 at 16:24; Status DC Sodium Chloride 10 ml Q8H IVP Last administered on 10/15/24at 09:31; Start 10/07/24 at 17:30; Stop 11/06/24 at 17:29 Pharmacy Profile Note 1 each ONCE MISC Last administered on 10/07/24at 23:37; Start 10/07/24 at 17:30; Stop 10/08/24 at 07:12; Status DC Atorvastatin Calcium 20 mg HS PO Last administered on 10/10/24at 20:55; Start 10/08/24 at 21:00; Stop 10/11/24 at 08:37; Status DC Levothyroxine Sodium 100 mcg SYN PO Last administered on 10/15/24at 06:04; Start 10/09/24 at 06:30; Stop 11/08/24 at 06:29 Heparin Sodium/ Dextrose 250 ml @ 0 mls/hr Q6H IV; Start 10/10/24 at 09:00; Stop 10/10/24 at 08:26; Status DC Cefazolin Sodium 2 gm ONCALL PRN IVP; Start 10/10/24 at 12:00; Stop 10/12/24 at 11:59; Status DC Tramadol HCl 25 mg Q6H PRN PO Last administered on 10/10/24at 16:13; Start 10/10/24 at 14:30; Stop 10/11/24 at 08:37; Status DC Cyclobenzaprine HCl 5 mg TID PRN PO; Start 10/10/24 at 14:30; Stop 10/11/24 at 08:37; Status DC Epinephrine HCl 10 mg/Sodium Chloride 250 ml @ 0 mls/hr AD PRN IV; Start 10/11/24 at 07:00; Stop 10/11/24 at 09:01; Status DC Norepinephrine Bitartrate 250 ml @ 0 mls/hr AD PRN IV; Start 10/11/24 at 07:00; Stop 10/11/24 at 09:03; Status DC Aminocaproic Acid 95693 mg/Sodium Chloride 480 ml @ 0 mls/hr AD PRN IV; Start 10/11/24 at 07:00; Stop 11/10/24 at 06:59 Cefazolin Sodium 1 gm STK-MED ONCE .ROUTE; Start 10/11/24 at 06:50; Stop 10/11/24 at 06:51; Status DC Heparin Sodium/ Sodium Chloride 500 ml @ As Directed STK-MED ONCE IV; Start 10/11/24 at 06:51; Stop 10/11/24 at 06:51; Status DC Papaverine HCl 60 mg STK-MED ONCE .ROUTE; Start 10/11/24 at 06:51; Stop 10/11/24 at 06:51; Status DC Cefazolin Sodium 2 gm STK-MED ONCE .ROUTE; Start 10/11/24 at 06:53; Stop 10/11/24 at 06:54; Status DC Sodium Chloride 1,000 ml @ As Directed STK-MED ONCE IV; Start 10/11/24 at 06:53; Stop 10/11/24 at 06:54; Status DC Protamine Sulfate 250 mg STK-MED ONCE IV; Start 10/11/24 at 07:56; Stop 10/11/24 at 07:56; Status DC Lidocaine HCl 100 mg STK-MED ONCE .ROUTE; Start 10/11/24 at 07:56; Stop 10/11/24 at 07:56; Status DC Heparin Sodium (Porcine) 10,000 unit STK-MED ONCE .ROUTE; Start 10/11/24 at 07:56; Stop 10/11/24 at 07:56; Status DC Epinephrine HCl 1 mg STK-MED ONCE .ROUTE; Start 10/11/24 at 07:56; Stop 10/11/24 at 07:56; Status DC Sodium Bicarbonate 200 ml @ As Directed STK-MED ONCE .ROUTE; Start 10/11/24 at 07:56; Stop 10/11/24 at 07:56; Status DC Norepinephrine Bitartrate 4 mg STK-MED ONCE IV; Start 10/11/24 at 07:56; Stop 10/11/24 at 07:56; Status DC Fentanyl Citrate 1,000 mcg STK-MED ONCE IJ; Start 10/11/24 at 07:56; Stop 10/11/24 at 07:57; Status DC Propofol 200 mg STK-MED ONCE IV; Start 10/11/24 at 07:57; Stop 10/11/24 at 07:57; Status DC Midazolam HCl 2 mg STK-MED ONCE .ROUTE; Start 10/11/24 at 07:57; Stop 10/11/24 at 07:57; Status DC Rocuronium [place] 50 mg STK-MED ONCE .ROUTE; Start 10/11/24 at 07:57; Stop 10/11/24 at 07:57; Status DC Ketamine HCl 50 mg STK-MED ONCE .ROUTE; Start 10/11/24 at 07:57; Stop 10/11/24 at 07:58; Status DC Nitroglycerin/ Dextrose 1 ml @ As Directed STK-MED ONCE .ROUTE; Start 10/11/24 at 08:27; Stop 10/11/24 at 08:27; Status DC Atorvastatin Calcium 40 mg HS PO Last administered on 10/13/24at 20:32; Start 10/11/24 at 21:00; Stop 10/14/24 at 09:11; Status DC Acetaminophen 1,000 mg Q6H6 IV Last administered on 10/12/24at 05:06; Start 10/11/24 at 12:00; Stop 10/12/24 at 11:59; Status DC Aspirin 81 mg ONCE ONCE NG; Start 10/11/24 at 12:00; Stop 10/11/24 at 08:42; Status DC Docusate Sodium 100 mg BID PO Last administered on 10/14/24at 20:09; Start 10/12/24 at 09:00; Stop 11/11/24 at 08:59 Lactulose 20 gm BID PRN PO; Start 10/11/24 at 09:00; Stop 11/10/24 at 08:59 Furosemide 20 mg Q12H PO Last administered on 10/15/24at 09:24; Start 10/13/24 at 09:00; Stop 11/12/24 at 08:59 Furosemide 20 mg Q12H IV Last administered on 10/12/24at 21:18; Start 10/12/24 at 09:00; Stop 10/13/24 at 08:59; Status DC Enoxaparin Sodium 30 mg DAILY SQ; Start 10/14/24 at 09:00; Stop 10/11/24 at 14:00; Status DC Metoprolol Tartrate 12.5 mg BID PO Last administered on 10/14/24at 20:08; Start 10/13/24 at 09:00; Stop 11/12/24 at 08:59 Magnesium Hydroxide 30 ml DAILY PRN PO; Start 10/11/24 at 09:00; Stop 11/10/24 at 08:59 Dexmedetomidine/ Sodium Chloride 400 mcg PROTOCOL IV; Start 10/11/24 at 09:00; Stop 10/12/24 at 08:59; Status DC Acetaminophen 650 mg Q6H PRN PO; Start 10/11/24 at 09:00; Stop 11/10/24 at 08:59 Sodium Chloride 1,000 ml @ 10 mls/hr ONCE IV; Start 10/11/24 at 09:00; Stop 10/11/24 at 08:52; Status DC Sodium Chloride 10 ml Q8H PRN IVP; Start 10/11/24 at 09:00; Stop 11/10/24 at 08:59 Morphine Sulfate 0.5 mg Q2H PRN IV; Start 10/11/24 at 09:00; Stop 10/12/24 at 08:59; Status DC Morphine Sulfate 1 mg Q2H PRN IV; Start 10/11/24 at 09:00; Stop 10/18/24 at 08:59 Acetaminophen 650 mg Q4H PRN RC; Start 10/11/24 at 09:00; Stop 11/10/24 at 08:59 Ondansetron HCl 4 mg Q6H PRN IV Last administered on 10/13/24at 08:20; Start 10/11/24 at 09:00; Stop 11/10/24 at 08:59 Sodium Chloride 500 ml @ 0 mls/hr AD IV; Start 10/11/24 at 09:00; Stop 11/10/24 at 08:59 Nitroglycerin/ Dextrose 0 ml @ 0 mls/hr AD IV Last administered on 10/11/24at 12:00; Start 10/11/24 at 09:00; Stop 10/14/24 at 08:59; Status DC Propofol 100 ml @ 0 mls/hr AD PRN IV; Start 10/11/24 at 09:00; Stop 10/15/24 at 08:59; Status DC Norepinephrine Bitartrate 250 ml @ 0 mls/hr AD PRN IV Last administered on 10/12/24at 08:08; Start 10/11/24 at 09:00; Stop 11/10/24 at 08:59 Epinephrine HCl 10 mg/Sodium Chloride 250 ml @ 7.716 mls/ hr AD PRN IV; Start 10/11/24 at 09:00; Stop 10/16/24 at 08:59 Aminocaproic Acid 10254 mg/Sodium Chloride 310 ml @ 25 mls/hr AD IV; Start 10/11/24 at 09:00; Stop 10/11/24 at 08:54; Status DC Calcium Gluconate 1 gm/Sodium Chloride 60 ml @ 200 mls/hr AD PRN IV Last administered on 10/13/24at 17:20; Start 10/11/24 at 09:00; Stop 11/10/24 at 08:59 Magnesium Sulfate 50 ml @ 12.5 mls/hr AD PRN IV Last administered on 10/12/24at 23:52; Start 10/11/24 at 09:00; Stop 11/10/24 at 08:59 Potassium Chloride 100 ml @ 100 mls/hr AD PRN IV Last administered on 10/13/24at 16:11; Start 10/11/24 at 09:00; Stop 11/10/24 at 08:59 Potassium Phosphate 250 ml @ 42 mls/hr AD PRN IV; Start 10/11/24 at 09:00; Stop 11/10/24 at 08:59 Albumin Human 250 ml @ 0 mls/hr AD PRN IV Last administered on 10/11/24at 23:20; Start 10/11/24 at 09:00; Stop 10/11/24 at 23:20; Status DC Acetaminophen 650 mg Q4H PRN PO; Start 10/11/24 at 09:00; Stop 11/10/24 at 08:59 Insulin Human Regular 100 unit/ Sodium Chloride 100 ml @ 0 mls/hr AD IV Last administered on 10/11/24at 23:19; Start 10/11/24 at 09:00; Stop 10/13/24 at 08:59; Status DC Cefazolin Sodium 2 gm Q8H IVPB Last administered on 10/12/24at 06:21; Start 10/11/24 at 14:00; Stop 10/12/24 at 06:01; Status DC Tramadol HCl 25 mg Q6H PRN PO; Start 10/11/24 at 09:00; Stop 10/16/24 at 08:59 Tramadol HCl 50 mg Q6H PRN PO Last administered on 10/14/24at 08:29; Start 10/11/24 at 09:00; Stop 10/16/24 at 08:59 Famotidine 20 mg BID IV; Start 10/11/24 at 09:00; Stop 10/11/24 at 09:03; Status DC Sodium Bicarbonate 50 meq AD PRN IV Last administered on 10/11/24at 18:14; Start 10/11/24 at 09:00; Stop 10/14/24 at 08:59; Status DC Dextrose 50 ml AD PRN IV; Start 10/11/24 at 09:00; Stop 10/13/24 at 07:52; Status DC Glucagon 1 mg AD PRN IM; Start 10/11/24 at 09:00; Stop 10/13/24 at 07:52; Status DC Sodium Chloride 1,000 ml @ 10 mls/hr ONCE ONCE IV Last administered on 10/11/24at 10:30; Start 10/11/24 at 09:00; Stop 10/14/24 at 09:10; Status DC Famotidine 20 mg Q24H IV Last administered on 10/15/24at 09:31; Start 10/11/24 at 09:30; Stop 11/10/24 at 08:59 Vasopressin 20 units STK-MED ONCE .ROUTE; Start 10/11/24 at 09:42; Stop 10/11/24 at 09:42; Status DC Ephedrine Sulfate 50 mg STK-MED ONCE .ROUTE; Start 10/11/24 at 09:42; Stop 10/11/24 at 09:43; Status DC Protamine Sulfate 250 mg STK-MED ONCE IV; Start 10/11/24 at 09:54; Stop 10/11/24 at 09:54; Status DC Protamine Sulfate 50 mg STK-MED ONCE .ROUTE; Start 10/11/24 at 09:54; Stop 10/11/24 at 09:54; Status DC Heparin Sodium (Porcine) 10,000 unit STK-MED ONCE .ROUTE; Start 10/11/24 at 09:54; Stop 10/11/24 at 09:54; Status DC Vasopressin 40 units/Sodium Chloride 40 ml @ 0 mls/hr PROTOCOL IV; Start 10/11/24 at 11:00; Stop 11/10/24 at 10:59 Lidocaine HCl/ Dextrose 250 ml @ 0 mls/hr AD PRN IV Last administered on 10/12/24at 14:44; Start 10/11/24 at 11:00; Stop 10/12/24 at 19:18; Status DC Lidocaine HCl/ Dextrose 250 ml @ As Directed STK-MED ONCE IV; Start 10/11/24 at 10:57; Stop 10/11/24 at 10:57; Status DC Amiodarone HCl 150 mg/Dextrose 103 ml @ 618 mls/hr ONCE IV Last administered on 10/11/24at 11:57; Start 10/11/24 at 12:00; Stop 10/11/24 at 12:09; Status DC Amiodarone HCl 360 mg/Dextrose 207.2 ml @ 33.3 mls/hr AD IV Last administered on 10/11/24at 12:04; Start 10/11/24 at 12:00; Stop 10/12/24 at 19:18; Status DC Amiodarone HCl 540 mg/Dextrose 310.8 ml @ 16.7 mls/hr [id number] IV Last administered on 10/11/24at 18:20; Start 10/11/24 at 12:00; Stop 11/10/24 at 11:59 Atropine Sulfate 1 mg STK-MED ONCE IVP; Start 10/11/24 at 12:42; Stop 10/11/24 at 12:42; Status DC Iohexol 35,000 mg STK-MED ONCE IV; Start 10/11/24 at 12:42; Stop 10/11/24 at 12:42; Status DC Heparin Sodium (Porcine) 10,000 unit STK-MED ONCE .ROUTE; Start 10/11/24 at 12:42; Stop 10/11/24 at 12:42; Status DC Heparin Sodium/ Sodium Chloride 1,000 ml @ As Directed STK-MED ONCE IV; Start 10/11/24 at 12:42; Stop 10/11/24 at 12:43; Status DC Nitroglycerin 50 mg STK-MED ONCE .ROUTE; Start 10/11/24 at 12:42; Stop 10/11/24 at 12:43; Status DC Lidocaine HCl 20 ml STK-MED ONCE .ROUTE; Start 10/11/24 at 12:43; Stop 10/11/24 at 12:43; Status DC Bivalirudin 250 mg STK-MED ONCE IV; Start 10/11/24 at 13:27; Stop 10/11/24 at 13:27; Status DC Iohexol 35,000 mg STK-MED ONCE IV; Start 10/11/24 at 13:34; Stop 10/11/24 at 13:34; Status DC Clopidogrel Bisulfate 300 mg STK-MED ONCE .ROUTE; Start 10/11/24 at 13:45; Stop 10/11/24 at 13:47; Status DC Clopidogrel Bisulfate 75 mg DAILY PO Last administered on 10/15/24at 09:24; Start 10/12/24 at 09:00; Stop 11/11/24 at 08:59 Heparin Sodium/ Dextrose 250 ml @ 0 mls/hr PROTOCOL IV Last administered on 10/11/24at 16:14; Start 10/11/24 at 16:00; Stop 10/12/24 at 19:18; Status DC Dextrose 50 ml AD PRN IV; Start 10/11/24 at 15:00; Stop 11/10/24 at 14:59 Glucagon 1 mg AD PRN IM; Start 10/11/24 at 15:00; Stop 11/10/24 at 14:59 Heparin Sodium/ Dextrose 250 ml @ 0 mls/hr PROTOCOL IV; Start 10/11/24 at 16:00; Stop 10/11/24 at 15:24; Status DC Cefazolin Sodium 2 gm STK-MED ONCE IVPB Last administered on 10/11/24at 08:30; Start 10/11/24 at 08:30; Stop 10/11/24 at 20:01; Status DC Cefazolin Sodium 1 gm STK-MED ONCE IRRIG Last administered on 10/11/24at 09:00; Start 10/11/24 at 09:00; Stop 10/11/24 at 20:01; Status DC Papaverine HCl 60 mg STK-MED ONCE IRRIG Last administered on 10/11/24at 09:00; Start 10/11/24 at 09:00; Stop 10/11/24 at 20:01; Status DC Heparin Sodium (Porcine) 5,000 unit STK-MED ONCE IRRIG Last administered on 10/11/24at 09:00; Start 10/11/24 at 09:00; Stop 10/11/24 at 20:01; Status DC Furosemide 20 mg ONCE ONCE IV; Start 10/12/24 at 02:30; Stop 10/12/24 at 02:31; Status DC Furosemide 20 mg STK-MED ONCE .ROUTE Last administered on 10/12/24at 02:20; Start 10/12/24 at 02:16; Stop 10/12/24 at 02:17; Status DC Albumin Human 250 ml @ As Directed STK-MED ONCE IV Last administered on 10/12/24at 21:19; Start 10/12/24 at 17:49; Stop 10/12/24 at 17:50; Status DC Amiodarone HCl 200 mg DAILY PO Last administered on 10/15/24at 09:24; Start 10/13/24 at 09:00; Stop 11/12/24 at 08:59 Insulin Human Regular INSULIN SLIDING SCAL... ACHS SQ; Start 10/13/24 at 11:30; Stop 11/12/24 at 11:29 Potassium Chloride 20 meq AD PRN PO Last administered on 10/15/24at 09:26; Start 10/14/24 at 09:00; Stop 11/13/24 at 08:59 Atorvastatin Calcium 40 mg HS PO Last administered on 10/14/24at 20:08; Start 10/14/24 at 21:00; Stop 11/10/24 at 20:59 Iron Sucrose 200 mg ONCE ONCE IV; Start 10/17/24 at 18:00; Stop 10/14/24 at 18:16; Status DC Folic Acid 1 mg DAILY PO; Start 10/15/24 at 21:00; Stop 11/14/24 at 20:59 Vitamin B Complex 1,000 mcg DAILY PO; Start 10/15/24 at 21:00; Stop 11/14/24 at 20:59 Iron Sucrose 200 mg AD IV; Start 10/14/24 at 18:30; Stop 10/14/24 at 18:34; Status DC Iron Sucrose 200 mg Q24H IV Last administered on 10/14/24at 18:41; Start 10/14/24 at 19:00; Stop 10/16/24 at 19:01 GUANACO ORELLANA MD Oct 15, 2024 11:59
--- NOTE | 2024-10-15 16:43 | PN ---
SUBJECTIVE: A 79-year-old status post CABG, coursing postoperative day #4. OBJECTIVE: GENERAL: Awake, alert, afebrile, neurologically intact. VITAL SIGNS: Stable as recorded in medical record. CHEST: Sternum stable. Incision sealed. LUNGS: Clear. EXTREMITIES: Warm, well perfused. No evidence of DVT, hematoma or infection. ASSESSMENT: Status post coronary artery bypass graft. PROBLEMS: * Dyslipidemia. Lipitor 40 mg once a day. * Coronary artery disease. Aspirin 81 mg, metoprolol 25 mg twice a day. * Fluid overload. Lasix 20 mg twice a day. PLAN: OT, PT, cardiac rehab. TID: [id number] RECEIPT: [id number]
--- NOTE | 2024-10-15 18:41 | PN ---
[facility] PROGRESS NOTE Date of Service: Oct 15, 2024 Time of Service: 18:39 SUBJECTIVE: Ms. Mac is a 79-year-old female that was seen and examined today on 10/05/2024. Patient is a good historian and personal health. Patient states that she came to the emergency department with a chief complaint of bilateral chest wall pain closer to the axilla and pain also radiates to the back. Onset was 9:30 a.m.. Character is described as throbbing. Symptoms are aggravated with palpation and movement. Symptoms are not alleviated with a chiropractic adjustment in fact symptoms became worse after a chiropractic adjustment. There was no alleviating factors Duration of pain is on and off. Patient denies any associated shortness of breath, nausea, vomiting, headache, dizziness. Today in the emergency department CBC unremarkable, troponin 378 (high sensitivity), creatinine 1.1, glucose 208 mg/dL, GFR 51, no urinalysis has been collected or sent to lab. Emergency room initial impression and EKG is that there is new T-wave inversions signifying a change from previous EKGs one week ago at a prior emergency room visit. For this reason emergency room physician recommended patient be admitted with a diagnosis of chest pain. 10/06/24 patient was seen and examined in the ER. She reports that she was doing much better. She denies any chest pain. And she tells me that she came in because she had back pain radiating to bilateral shoulders. She does go to chiropractor to get this resolved but this time it was more persistent 10/07/2024 - patient is seen at bedside in the room ER 5. Patient denies any active chest pain, shortness of breath, nausea, vomiting. [place] [id number] and is coming down with treatment, patient is planned for agriculture laboratory technician. Patient feels anxious about the upcoming agriculture laboratory technician procedure and question regarding the procedures, all questions were answered. Patient informed about her extremities getting cold and color change to purplish red and about her joint problems and trouble of food getting stuck in the esophagus after swallowing , immunology workup is planned to rule out limited scleroderma . Patient is hemodynamically stable with temperature 98.6, pulse 77, respiratory rate 17, blood pressure 146/77, pulse oximetry 99% on room air. Patient's labs shows WBC 10.4, hemoglobin 13.5, chemistries show sodium 141, potassium 4.3, creatinine 0.8, BUN 14. Patient is currently on metoprolol, pantoprazole, aspirin, heparin, nitroglycerin. Patient will be followed rajiv kuldip, we will follow Cardiology recommendations. 10/08/2024 - patient is seen in room 201, patient denies any symptoms, patient was taken to the agriculture laboratory technician yesterday in the results are as follows SELECTIVE CORONARY ANGIOGRAPHY: 1. Left main: The left main bifurcates into the left anterior descending and circumflex coronary artery. Distal Left main with 50% stenosis 2. Left anterior descending: The left anterior descending coronary artery gives rise to diagonal(s) and terminates as the apical recurrent branch. Prox LAD with 90% disease 3. Circumflex: The circumflex coronary artery is noted to provide obtuse marginal(s). Prox Cx with 95% disease 4. Right coronary artery: The right coronary artery is dominant and gives PDA and NIKITA. Prox RCA with 50% disease 5. Left ventricular end-diastolic pressure is elevated. There was no gradient noted upon pullback. Cardiothoracic surgeon is consulted and Dr. Licona has ordered an ultrasound carotid has a preoperative procedure. patient will be continued on medical management until the surgery . Patient is currently hemodynamically stable with temperature 98.2, pulse 81, blood pressure 122/80, respiratory rate 18, saturating at 94% on room air. Patient's labs shows WBC 10.7, hemoglobin 11.9 and chemistries show sodium 142, potassium 3.7, creatinine 0.7. Awaiting further instructions from cardio thoracic surgeon. 10/09/2024 - patient is seen at bedside in room 201. Patient is currently asymptomatic but complained of mild pain yesterday night which is relieved with nitro patch. Patient had black tarry stool episode yesterday and the heparin is put on hold currently she informed that this morning she had a normal colored stool. Patient has been seen by Dr. Licona and he informed about the surgery but has not scheduled it yet. Audio Video Technician following the case closely and recommends continuing the medical management until the surgery patient is currently hemodynamically stable with temperature 97.9, pulse 73, respiratory rate 16, blood pressure 113/58 and saturating at 99% on room air. Patient's labs shows WBC 9.6, hemoglobin 11.3 And chemistries show sodium 138, potassium 3.6, creatinine 0.8, BUN 24. Patient will be followed closely. 10/10/2024 - patient is seen at bedside in room 201. Patient is complaining of mild pain in the back which is reproducible on palpation and also mentioned about mild chest pain which presents on bending forward, pain is relieved by sitting straight. Patient requested medication for the back pain and we ordered Flexeril and Ultram p.r.n. heparin is currently on hold troponin is trending down. Heparin to be continued if troponin trending up and will be held with the patient has black tarry stools again. Cardiac thoracic surgery might plan to surgery on the weekend. Patient's vitals temperature 98.1, pulse 60, respiratory rate 20, blood pressure 125/59, saturating at 99% on room air. Patient's labs shows WBC 9.6, hemoglobin 10.7 and chemistries show sodium 139, potassium 4.1, creatinine 0.8, BUN 24 and troponin has trended down from 2346 to 1280. We will be following Cardiology recommendations. We will be monitoring the case closely. 10/11/2024 - patient is seen at bedside in room 212. Patient is seen post CABG, intubated. Cardiology anesthesia informed about the procedure done and about placing 2 grafts for the stenosed vessels - LAD, left circumflex. Also informed about recovery of some heart function due to the return of perfusion . Patient had AFib after the surgery and she was started on amiodarone and lidocaine drip. Patient also had IABP placed to assist with EF. Patient is on other drips like nitro, epinephrine, ventilation settings are respiratory rate 14 , tidal volume 450, FiO2 100%, peep of 5 . Patient currently return to sinus rhythm after the amiodarone bolus. Patient's white count elevated to 29.6 and chemistries show sodium 148, potassium 3.3, magnesium 1.2 , it will be replaced. Patient will be monitored closely. 10/12/24 patient was seen and examined. Case discussed with the RN. Patient was more stable today heart rate of [id number] there may be able to switch amiodarone to p.o.. 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 No unintentional weight loss reported. NEUROLOGICAL: Denies headache, amaurosis fugax, motor weakness, sensory deficit, vertigo/spinning sensation, gait abnormalities, or tremors. ENT: No hearing loss, otalgia, otorrhea, rhinitis, rhinorrhea, hoarseness, or sore throat. CARDIOVASCULAR: Denies any exertional angina, dyspnea on exertion, orthopnea, paroxysmal nocturnal dyspnea, palpitations, life-threatening arrhythmias, claudication. PULMONARY: Denies any shortness of breath, cough, phlegm/sputum, hemoptysis, pleuritic chest pain. SLEEP: Denies morning headaches, daytime somnolence or napping. Denies difficulty falling asleep, staying asleep, waking from sleep. Denies knowledge of snoring. GASTROINTESTINAL: Denies any type of dysphagia to either liquids or solids. Denies nausea, vomiting, pyrosis, early satiety, abdominal pain, diarrhea, constipation, or changes in stool consistency or caliber. Denies coffee-ground emesis, hematemesis, hematochezia, or melanotic stools. GENITOURINARY: Denies frequency, urgency, nocturia, hematuria or incontinence (Storage/Irritative symptoms.) Low urinary stream, straining to void, urinary intermittency or hesitancy, splitting of the voiding stream, terminal dribbling. ENDOCRINOLOGIC: Denies polyuria, polydipsia, polyphagia or heat/cold intolerances. HEMATOLOGIC: Denies thrombophilia/previous clots, or coagulopathy/bleeding disorders. ONCOLOGIC: Denies personal history of malignancy. DERMATOLOGIC: Denies rashes or pruritus. PSYCHIATRIC: Denies any suicidal or homicidal ideation. Denies hallucinations. PHYSICAL EXAM GENERAL APPEARANCE: The patient is awake, alert, and oriented, in no acute cardiopulmonary distress. NEUROLOGICAL: Cranial nerves II-XII grossly intact. Motor is 5/5 in bilateral upper and lower extremities proximal to distal. No sensory deficits. HEENT: Face is symmetric. Pupils are equal and reactive. Extraocular movements are intact. NECK: Supple. No JVD. No thyromegaly. No submental, submandibular, pre- /postauricular, occipital or supraclavicular lymphadenopathy. CHEST: Normal chest expansion. No Telemetry. LUNGS: Absence of any rales, rhonchi or any wheezing. CARDIOVASCULAR: Regular. S1 and S2 normal. No appreciable rubs, murmurs or gallops. ABDOMEN: Soft, nontender, and nondistended. There is no rebound, voluntary guarding, or rigidity. : Deferred. No Rosa. EXTREMITIES: Non-edematous and not cyanotic. No clubbing. Good capillary refill. SKIN: No skin breakdown. Vital Signs (last 8hr) Date Time Temp Pulse Resp B/P (MAP) Pulse Ox O2 Delivery O2 Flow Rate FiO2 10/15/24 17:00 86 21 112/56 99 Nasal Cannula 2.0 10/15/24 16:00 81 24 105/47 95 Nasal Cannula 2.0 10/15/24 14:45 87 24 101/41 95 Nasal Cannula 2.0 10/15/24 13:45 81 23 101/46 97 Nasal Cannula 2.0 10/15/24 13:41 81 20 90/44 97 Nasal Cannula 2.0 10/15/24 12:49 88 22 89/43 97 Nasal Cannula 2.0 10/15/24 12:39 84 22 100/50 98 Nasal Cannula 2.0 10/15/24 11:45 86 35 89/39 98 Nasal Cannula 2.0 10/15/24 10:45 81 9 96/44 97 Nasal Cannula 2.0 LABS: Laboratory: Test 10/15/24 04:02 10/14/24 19:55 10/14/24 11:11 Range/Units White Blood Count 13.2 H 4.8-10.8 K/uL Red Blood Count 2.74 L 4.00-5.50 MIL/uL Hemoglobin 8.0 L 12.0-16.0 g/dL Hematocrit 24.3 L 36-48 % Mean Corpuscular Volume 88.7 79-99 fL Mean Corpuscular Hemoglobin 29.2 27.0-33.0 pg Mean Corpuscular Hemoglobin Concent 32.9 32.0-36.0 g/dL Red Cell Distribution Width 15.7 H 11.0-15.5 % Platelet Count 121 L 130-400 K/uL Mean Platelet Volume 11.4 H 7.5-10.5 fL Nucleated Red Blood Cells 2.4 H 0.0-0.19 % Sodium Level 141 136-145 mmol/L Potassium Level 3.5 3.5-5.1 mmol/L Chloride Level 106 101-111 mmol/L Carbon Dioxide Level 29 21-32 mmol/L Blood Urea Nitrogen 41 H 7-18 mg/dL Creatinine 0.8 0.5-1.0 mg/dL Glomerular Filtration Rate Calc 75 >90 mL/min Random Glucose 82 70-105 mg/dL Total Calcium 7.5 L 8.5-10.1 mg/dL Whole Blood Glucose 103 70-110 MG/DL Immature Granulocyte % (Auto) 0.8 0-1 % Neutrophils (%) (Auto) 85.7 H 40.0-77.0 % Lymphocytes (%) (Auto) 7.6 L 21.0-51.0 % Monocytes (%) (Auto) 5.5 3.0-13.0 % Eosinophils (%) (Auto) 0.2 0.0-8.0 % Basophils (%) (Auto) 0.2 0.0-5.0 % Neutrophils # (Auto) 13.1 H 1.8-7.7 K/uL Lymphocytes # (Auto) 1.2 1.0-4.8 K/uL Monocytes # (Auto) 0.8 0.1-1.0 K/uL Eosinophils # (Auto) 0.03 0.00-0.70 K/uL Basophils # (Auto) 0.03 0.00-0.20 K/uL Absolute Immature Granulocyte (auto 0.13 0-1 K/uL Iron Level 36 L 50-170 mcg/dL Total Iron Binding Capacity 164 L 250-450 mcg/dL Percent Iron Saturation 21.9 L 22-44 % Current Medications Medications (Trade) Dose Ordered Sig/Rashad Route PRN Reason Start Time Stop Time Status Last Admin Dose Admin Acetaminophen (TYLenol 325MG TAB) 650 mg Q4H PRN PO Temp >38.3C(AFTER EXTUBATION) 10/11/24 09:00 11/10/24 08:59 Acetaminophen (TYLenol 325MG TAB) 650 mg Q6H PRN PO MILD PAIN (1-3) 10/11/24 09:00 11/10/24 08:59 Acetaminophen (TYLenol 325MG TAB) 650 mg Q6H PRN PO TEMPERATURE GREATER THAN 101.5 10/05/24 23:30 10/14/24 09:10 DC 10/10/24 06:06 650 MG Acetaminophen (TYLenol 650MG SUPPOSITORY) 650 mg Q4H PRN RC Temp >38.3C WHILE INTUBATED 10/11/24 09:00 11/10/24 08:59 Acetaminophen (acetaMINOPHEN) 1,000 mg Q6H6 IV 10/11/24 12:00 10/12/24 11:59 DC 10/12/24 05:06 1,000 MG Albumin Human 250 ml @ 0 mls/hr AD PRN IV IF HEMODYNAMICALLY UNSTABLE 10/11/24 09:00 10/11/24 23:20 DC 10/11/24 23:20 250 MLS/HR Aminocaproic Acid 55298 mg/Sodium Chloride 310 ml @ 25 mls/hr AD IV 10/11/24 09:00 10/11/24 08:54 DC Aminocaproic Acid 25899 mg/Sodium Chloride 480 ml @ 0 mls/hr AD PRN IV BLEEDING CONTROL 10/11/24 07:00 11/10/24 06:59 Amiodarone HCl (pacERONE 200MG) 200 mg DAILY PO 10/13/24 09:00 11/12/24 08:59 10/15/24 09:24 200 MG Amiodarone HCl 150 mg/Dextrose 103 ml @ 618 mls/hr ONCE IV 10/11/24 12:00 10/11/24 12:09 DC 10/11/24 11:57 618 MLS/HR Amiodarone HCl 360 mg/Dextrose 207.2 ml @ 33.3 mls/hr AD IV 10/11/24 12:00 10/12/24 19:18 DC 10/11/24 12:04 33.3 MLS/HR Amiodarone HCl 540 mg/Dextrose 310.8 ml @ 16.7 mls/hr [id number] IV 10/11/24 12:00 11/10/24 11:59 10/11/24 18:20 16.7 MLS/HR Aspirin (Aspirin 81mg Chew Tab) 81 mg DAILY PO 10/06/24 09:00 11/05/24 08:59 10/15/24 09:24 81 MG Atorvastatin Calcium (LIPItor 20MG) 20 mg HS PO 10/08/24 21:00 10/11/24 08:37 DC 10/10/24 20:55 20 MG Atorvastatin Calcium (LIPItor 20MG) 40 mg HS PO 10/11/24 21:00 10/14/24 09:11 DC 10/13/24 20:32 40 MG Atorvastatin Calcium (LIPItor 40MG) 40 mg HS PO 10/14/24 21:00 11/10/24 20:59 10/14/24 20:08 40 MG Calcium Gluconate 1 gm/Sodium Chloride 60 ml @ 200 mls/hr AD PRN IV HYPOCALCEMIA 10/11/24 09:00 11/10/24 08:59 10/13/24 17:20 200 MLS/HR Cefazolin Sodium (Ancef) 2 gm ONCALL PRN IVP SURGERY 10/10/24 12:00 10/12/24 11:59 DC Cefazolin Sodium (Ancef) 2 gm Q8H IVPB 10/11/24 14:00 10/12/24 06:01 DC 10/12/24 06:21 2 GM Clopidogrel Bisulfate (plaVIX 75MG) 75 mg DAILY PO 10/12/24 09:00 11/11/24 08:59 10/15/24 09:24 75 MG Cyclobenzaprine HCl (Cyclobenzaprine HCl) 5 mg TID PRN PO MUSCLE SPASMS 10/10/24 14:30 10/11/24 08:37 DC Dexmedetomidine/ Sodium Chloride (PRECEdex 400MCG/ 100ML-NS) 400 mcg PROTOCOL IV 10/11/24 09:00 10/12/24 08:59 DC Dextrose (D50w) 50 ml AD PRN IV HYPOGLYCEMIA PROTOCOL 10/11/24 09:00 10/13/24 07:52 DC Dextrose (D50w) 50 ml AD PRN IV HYPOGLYCEMIA PROTOCOL 10/11/24 15:00 11/10/24 14:59 Docusate Sodium (COLace 100MG CAP) 100 mg BID PO 10/12/24 09:00 11/11/24 08:59 10/14/24 20:09 100 MG Enoxaparin Sodium (Lovenox) 30 mg DAILY SQ 10/14/24 09:00 10/11/24 14:00 DC Epinephrine HCl 10 mg/Sodium Chloride 250 ml @ 7.716 mls/ hr AD PRN IV POST-OP CARDIOVASCULAR ORDERS 10/11/24 09:00 10/16/24 08:59 Epinephrine HCl 10 mg/Sodium Chloride 250 ml @ 0 mls/hr AD PRN IV TITRATE 10/11/24 07:00 10/11/24 09:01 DC Famotidine (Pepcid 20mg Vial) 20 mg BID IV 10/11/24 09:00 10/11/24 09:03 DC Famotidine (Pepcid 20mg Vial) 20 mg Q24H IV 10/11/24 09:30 11/10/24 08:59 10/15/24 09:31 20 MG Folic Acid (FOLic ACID 1 MG TABLET) 1 mg DAILY PO 10/15/24 21:00 11/14/24 20:59 Furosemide (LASix 20MG TAB) 20 mg Q12H PO 10/13/24 09:00 11/12/24 08:59 10/15/24 09:24 20 MG Furosemide (LASix 20MG VIAL) 20 mg Q12H IV 10/12/24 09:00 10/13/24 08:59 DC 10/12/24 21:18 20 MG Glucagon (Glucagon 1mg Kit) 1 mg AD PRN IM HYPOGLYCEMIA PROTOCOL 10/11/24 09:00 10/13/24 07:52 DC Glucagon (Glucagon 1mg Kit) 1 mg AD PRN IM HYPOGLYCEMIA PROTOCOL 10/11/24 15:00 11/10/24 14:59 Heparin Sodium (Porcine) (HEParin 5,000 UNIT VIAL) *calculation based on ACTUAL B... AD PRN IV HEPARIN PROTOCOL 10/06/24 07:30 10/10/24 08:27 DC 10/06/24 07:19 3,877.5 UNIT Heparin Sodium (Porcine) (HEParin 5,000 UNIT VIAL) 5,000 unit BID SQ 10/06/24 09:00 10/06/24 06:29 DC Heparin Sodium/ Dextrose 250 ml @ 0 mls/hr PROTOCOL IV 10/11/24 16:00 10/11/24 15:24 DC Heparin Sodium/ Dextrose 250 ml @ 0 mls/hr PROTOCOL IV 10/11/24 16:00 10/12/24 19:18 DC 10/11/24 16:14 8.7 MLS/HR Heparin Sodium/ Dextrose 250 ml @ 0 mls/hr Q6H IV 10/10/24 09:00 10/10/24 08:26 DC Heparin Sodium/ Dextrose 250 ml @ 0 mls/hr Q6H IV 10/06/24 07:30 10/10/24 08:17 DC 10/08/24 14:20 0 MLS/HR Insulin Human Regular (humuLIN R 100 UNIT/ML 3ML) INSULIN SLIDING SCAL... ACHS SQ 10/13/24 11:30 11/12/24 11:29 Insulin Human Regular (humuLIN R 100 UNIT/ML 3ML) INSULIN SLIDING SCAL... ACHS SQ 10/06/24 07:30 10/11/24 08:37 DC Insulin Human Regular 100 unit/ Sodium Chloride 100 ml @ 0 mls/hr AD IV 10/11/24 09:00 10/13/24 08:59 DC 10/11/24 23:19 3 MLS/HR Iron Sucrose (VenoFER) 200 mg AD IV 10/14/24 18:30 10/14/24 18:34 DC Iron Sucrose (VenoFER) 200 mg Q24H IV 10/14/24 19:00 10/16/24 19:01 10/14/24 18:41 200 MG Lactulose (Constulose 20gm/ 30ml Udcup) 20 gm BID PRN PO CONSTIPATION 10/11/24 09:00 11/10/24 08:59 Levothyroxine Sodium (SYNTHroid 100MCG TAB) 100 mcg SYN PO 10/09/24 06:30 11/08/24 06:29 10/15/24 06:04 100 MCG Lidocaine HCl/ Dextrose 250 ml @ 0 mls/hr AD PRN IV TITRATE 10/11/24 11:00 10/12/24 19:18 DC 10/12/24 14:44 7.5 MLS/HR Magnesium Hydroxide (Milk Of Magnesium 30ml) 30 ml DAILY PRN PO CONSTIPATION 10/11/24 09:00 11/10/24 08:59 Magnesium Sulfate 50 ml @ 12.5 mls/hr AD PRN IV MAG LEVEL LESS THAN 2.0 10/11/24 09:00 11/10/24 08:59 10/12/24 23:52 12.5 MLS/HR Magnesium Sulfate 50 ml @ 0 mls/hr PROTOCOL PRN IV h 10/05/24 23:30 10/11/24 08:37 DC Metoprolol Tartrate (loprESSOR) 12.5 mg BID PO 10/07/24 09:00 10/11/24 08:37 DC 10/11/24 06:32 12.5 MG Metoprolol Tartrate (loprESSOR) 12.5 mg BID PO 10/13/24 09:00 11/12/24 08:59 10/14/24 20:08 12.5 MG Morphine Sulfate (morPHINE 2MG SYG) 0.5 mg Q2H PRN IV MODERATE PAIN (4-6) 10/11/24 09:00 10/12/24 08:59 DC Morphine Sulfate (morPHINE 2MG SYG) 1 mg Q2H PRN IV SEVERE PAIN (7-10) 10/11/24 09:00 10/18/24 08:59 Nitroglycerin (Nitroglycerin 1gm Oint) 0.5 inch Q8H TD 10/05/24 23:30 10/11/24 08:37 DC 10/10/24 22:37 0.5 INCH Nitroglycerin (Nitrostat) 0.4 mg AD PRN SL CHEST PAIN 10/05/24 22:30 10/11/24 08:37 DC Nitroglycerin/ Dextrose 0 ml @ 0 mls/hr AD IV 10/11/24 09:00 10/14/24 08:59 DC 10/11/24 12:00 0 MLS/HR Norepinephrine Bitartrate 250 ml @ 0 mls/hr AD PRN IV TITRATE 10/11/24 07:00 10/11/24 09:03 DC Norepinephrine Bitartrate 250 ml @ 0 mls/hr AD PRN IV POST-OP CARDIOVASCULAR ORDERS 10/11/24 09:00 11/10/24 08:59 10/12/24 08:08 11.3 MLS/HR Ondansetron HCl (zoFRAN 4MG INJ) 4 mg Q6H PRN IV NAUSEA/VOMITING 10/11/24 09:00 11/10/24 08:59 10/13/24 08:20 4 MG Ondansetron HCl (zoFRAN 4MG INJ) 4 mg Q6H PRN IV NAUSEA/VOMITING 10/05/24 23:30 10/11/24 08:37 DC Pantoprazole Sodium (PROTonix 40MG TAB) 40 mg DAILY PO 10/06/24 09:00 10/11/24 08:37 DC 10/10/24 09:00 40 MG Pharmacy Profile Note (Pharmacy Communication) 1 each ONCE MISC 10/07/24 17:30 10/08/24 07:12 DC 10/07/24 23:37 1 EACH Potassium Phosphate 250 ml @ 42 mls/hr AD PRN IV LOW PHOS LEVEL 10/11/24 09:00 11/10/24 08:59 Potassium Chloride 100 ml @ 100 mls/hr AD PRN IV HYPOKALEMIA 10/11/24 09:00 11/10/24 08:59 10/13/24 16:11 100 MLS/HR Potassium Chloride 100 ml @ 100 mls/hr AD PRN IV POTASSIUM PROTOCOL 10/05/24 23:30 10/11/24 08:37 DC Potassium Chloride (K-Dur/Klor-Con 20meq) 20 meq AD PRN PO POTASSIUM PROTOCOL 10/05/24 23:30 10/11/24 08:37 DC Potassium Chloride (KCl 10% Elixir 20meq/15ml) 20 meq AD PRN PO POTASSIUM PROTOCOL 10/14/24 09:00 11/13/24 08:59 10/15/24 09:26 20 MEQ Potassium Chloride (KCl 10% Elixir 20meq/15ml) 20 meq AD PRN PO POTASSIUM PROTOCOL 10/05/24 23:30 10/11/24 08:37 DC 10/09/24 21:00 20 MEQ Propofol 100 ml @ 0 mls/hr AD PRN IV SEDATION 10/11/24 09:00 10/15/24 08:59 DC Sodium Bicarbonate (Sodium Bicarb 50meq 50ml Vial) 50 meq AD PRN IV OTHER[SEE DOSING INSTRUCTIONS] 10/11/24 09:00 10/14/24 08:59 DC 10/11/24 18:14 50 MEQ Sodium Chloride 500 ml @ 0 mls/hr AD IV 10/11/24 09:00 11/10/24 08:59 Sodium Chloride 500 ml @ 0 mls/hr Q0M IV 10/06/24 21:30 10/11/24 08:37 DC Sodium Chloride 1,000 ml @ 10 mls/hr ONCE IV 10/11/24 09:00 10/11/24 08:52 DC Sodium Chloride (NS Flush 10ml) 10 ml Q8H IVP 10/07/24 17:30 11/06/24 17:29 10/15/24 09:31 10 ML Sodium Chloride (NS Flush 10ml) 10 ml Q8H PRN IVP IV LINE FLUSH 10/11/24 09:00 11/10/24 08:59 Tramadol HCl (UltRAM) 25 mg Q6H PRN PO MODERATE PAIN (4-6) 10/10/24 14:30 10/11/24 08:37 DC 10/10/24 16:13 25 MG Tramadol HCl (UltRAM) 25 mg Q6H PRN PO MODERATE PAIN (4-6) 10/11/24 09:00 10/16/24 08:59 Tramadol HCl (UltRAM) 50 mg Q6H PRN PO SEVERE PAIN (7-10) 10/11/24 09:00 10/16/24 08:59 10/14/24 08:29 50 MG Vasopressin 40 units/Sodium Chloride 40 ml @ 0 mls/hr PROTOCOL IV 10/11/24 11:00 11/10/24 10:59 Vitamin B Complex (Vitamin B-12) 1,000 mcg DAILY PO 10/15/24 21:00 11/14/24 20:59 DIAGNOSTICS / RADIOLOGY: [ ] ASSESSMENT: Chest pain, POA Abnormal EKG, POA Elevated troponin, POA CKD stage IIIA, POA uncontrolled Diabetes mellitius type2, POA Hypertension POA Hypothyroidism POA Raynaud's phenomenon POA GI bleed resolved NSTEMI POA Status post CABG x2 on 10/11/2024 Postoperative AFib with RVR clinically insignificant PLAN: Follow Cardiothoracic recommendations and Cardiology recommendations Maintain electrolyte balance Incentive spirometry once extubated Follow hemoglobin closely and transfuse if it goes under 8 JOSEY JACOME MD Oct 15, 2024 18:41
[2024-10-15 21:38] LABS: INR 0.97 (0.85-1.15); PROTHROMBIN TIME 10.9 SEC (9.6-11.6)
[2024-10-15 21:39] LABS: PARTIAL THROMBOPLASTIN TIME 29.1 SEC (26.3-35.5)
[2024-10-15] MEDS: CYANOCOBALAMIN (VITAMIN B-12) 1,000 MCG TABLET PO SCH (21:50)
[2024-10-15] MEDS: FOLic ACID 1 MG TABLET PO SCH (21:50)
[2024-10-16] VITALS (35 sets, daily range): BP systolic 104–139; BP diastolic 42–63; PULSE 69–85; RESP 11–22; TEMP 97.5–98.3; O2SAT 97
[2024-10-16 04:24] LABS: HEMATOCRIT 21.9 % (36-48); MEAN CORPUSCULAR HEMOGLOBIN 29.3 pg (27.0-33.0); MEAN CORPUSCULAR HGB CONC 32.4 g/dL (32.0-36.0); MEAN CORPUSCULAR VOLUME 90.5 fL (79-99); NUCLEATED RED BLOOD CELLS 1.8 % (0.0-0.19); RED BLOOD CELL COUNT(AUTO) 2.42 MIL/uL (4.00-5.50); RED CELL DISTRIBUTION WIDTH 15.3 % (11.0-15.5); WHITE BLOOD COUNT (AUTO) 12.7 K/uL (4.8-10.8)
[2024-10-16 04:32] LABS: CREATININE 0.9 mg/dL (0.5-1.0); POTASSIUM 3.4 mmol/L (3.5-5.1)
--- NOTE | 2024-10-16 09:24 | HMCIMG ---
CHEST 1VW REASON: s/p CABG COMPARISON: 10/15/2024 FINDINGS: Heart size is stable. There is decreasing atelectasis medial left lung base. Lungs are otherwise clear. Left chest tube remains in place, there is no pneumothorax. IMPRESSION: 1. Improving postop chest.
--- NOTE | 2024-10-16 10:24 | PN ---
"[facility] PROGRESS NOTE Date Patient Seen: Oct 16, 2024 Time of Visit: 10:24 Supervising Physician: Sindhu Pulido MD Primary Care Physician: Maine Euceda MD Outpatient Specialists: Inpatient Consults: CV Surgery Dr Gregg, Dr Ravi MD, BIS Attending physician|: Kali Carroll MD PROBLEM LIST: Multivessel CAD status post CABG x2 on 10/11/24 (Dr Gregg) NSTEMI, POA, IABP rt femoral, removed 10/12/24 Cardiomyopathy with EF of 35-40% POA Postoperative AFib with RVR on amiodarone drip and lidocaine drip CKD stage IIIA, POA hyperglycemia in the presence of type 2 diabetes mellitus, POA Hypertension Hypothyroidism Raynaud's phenomenon GI bleed resolved INTERVAL HISTORY: Day #5 s/p CABG. Patient is awake alert and oriented x3. She is hemodynamically stable off pressors. Currently saturating 98% with 1 L via nasal cannula and afebrile. Urine output 875 mL in the last 24 hours with chest tube output of 75 mL. + 1 pitting edema to bilateral lower extremities, we will add x1 dose of furosemide 20 mg IV push. She is currently receiving 1 unit of PRBCs due to drop in hemoglobin this morning of 7.1 WBCs are trending down as expected 12.7 today platelet count is 156 K improved from yesterday which was 121 K. chemistry potassium was 3.4 and it was replaced per protocol and BUN 40 creatinine of 0.9 and GFR of 65 magnesium is 1.90 replace per protocol.Chest XR with stable heart size, there is decreasing atelectasis to left lung, lungs are otherwise clear. Left chest tube remain in place. thre is no pneumothorax. She has been downgraded from ICU today to PCCU. Chest tubes are planned for removal today. REVIEW OF SYSTEMS: 12 point ROS reviewed with patient. Pertinent positives mentioned above. Otherwise negative. PHYSICAL EXAM: GENERAL: Post CABG , recovering HEENT: Sclera non icteric, moist mucosa NECK: Supple, no JVD, trachea midline Rt IJ LUNGS: Clear breath sounds to all lobes bilaterally. No wheezes HEART: Regular rate and rhythm. Normal S1 and S2, without murmurs , dressing to midsternal area clean dry and intact. Chest tube ABD: Abdomen soft, nontender. Bowel sounds present EXT: No clubbing cyanosis +1 pitting edema to BLE. pulses palpable. cap refill < 3 seconds to carlos feet. NEURO: GCS 15 no focal weakness. Vital Signs (last 8hr) Date Time Temp Pulse Resp B/P (MAP) Pulse Ox O2 Delivery O2 Flow Rate FiO2 10/16/24 09:00 81 19 95 10/16/24 08:45 98.2 83 19 115/51 96 Nasal Cannula 1.0 10/16/24 08:30 77 11 96 10/16/24 08:06 74 18 N/Cannula Low lpm 24 10/16/24 08:00 84 16 97 10/16/24 07:50 97 Nasal Cannula* 1 24 10/16/24 07:47 81 11 138/54 97 Nasal Cannula 1.0 10/16/24 07:30 78 19 97 10/16/24 07:00 78 18 96 10/16/24 06:00 75 18 108/52 96 Nasal Cannula 1.0 10/16/24 05:00 70 18 120/42 95 Nasal Cannula 1.0 10/16/24 04:00 97 Nasal Cannula* 1 24 10/16/24 04:00 98.1 76 15 121/54 97 Nasal Cannula 1.0 10/16/24 03:00 69 13 119/46 97 Nasal Cannula 1.0 LABS: Hematology Labs: Test 10/16/24 04:02 10/14/24 11:11 Range/Units White Blood Count 12.7 H 4.8-10.8 K/uL Red Blood Count 2.42 L 4.00-5.50 MIL/uL Hemoglobin 7.1 L 12.0-16.0 g/dL Hematocrit 21.9 L 36-48 % Mean Corpuscular Volume 90.5 79-99 fL Mean Corpuscular Hemoglobin 29.3 27.0-33.0 pg Mean Corpuscular Hemoglobin Concent 32.4 32.0-36.0 g/dL Red Cell Distribution Width 15.3 11.0-15.5 % Platelet Count 156 # 130-400 K/uL Mean Platelet Volume 11.1 H 7.5-10.5 fL Nucleated Red Blood Cells 1.8 H 0.0-0.19 % Immature Granulocyte % (Auto) 0.8 0-1 % Neutrophils (%) (Auto) 85.7 H 40.0-77.0 % Lymphocytes (%) (Auto) 7.6 L 21.0-51.0 % Monocytes (%) (Auto) 5.5 3.0-13.0 % Eosinophils (%) (Auto) 0.2 0.0-8.0 % Basophils (%) (Auto) 0.2 0.0-5.0 % Neutrophils # (Auto) 13.1 H 1.8-7.7 K/uL Lymphocytes # (Auto) 1.2 1.0-4.8 K/uL Monocytes # (Auto) 0.8 0.1-1.0 K/uL Eosinophils # (Auto) 0.03 0.00-0.70 K/uL Basophils # (Auto) 0.03 0.00-0.20 K/uL Absolute Immature Granulocyte (auto 0.13 0-1 K/uL Chemistry Labs: Test 10/16/24 04:02 10/15/24 21:51 10/14/24 11:11 Range/Units Sodium Level 142 136-145 mmol/L Potassium Level 3.4 L 3.5-5.1 mmol/L Chloride Level 106 101-111 mmol/L Carbon Dioxide Level 30 21-32 mmol/L Blood Urea Nitrogen 40 H 7-18 mg/dL Creatinine 0.9 0.5-1.0 mg/dL Glomerular Filtration Rate Calc 65 >90 mL/min Random Glucose 101 70-105 mg/dL Total Calcium 7.1 L 8.5-10.1 mg/dL Magnesium Level 1.90 1.80-2.40 mg/dL Whole Blood Glucose 114 H 70-110 MG/DL Iron Level 36 L 50-170 mcg/dL Total Iron Binding Capacity 164 L 250-450 mcg/dL Percent Iron Saturation 21.9 L 22-44 % Coagulation Labs: Test 10/15/24 21:05 Range/Units Prothrombin Time 10.9 9.6-11.6 SEC Prothromb Time International Ratio 0.97 0.85-1.15 Activated Partial Thromboplast Time 29.1 26.3-35.5 SEC DIAGNOSTICS / RADIOLOGY RESULTS: [ ] Signed PATIENT: WATSON BONILLA MR#: [id number] : 1945 SEX: F AGE: 79 LOCATION: [facility] ORDER 99 STATUS: ADM IN REPORT#: [id number] SERVICE 0400 REASON: s/p CABG ORDERING PHYSICIAN: NAWAF GREGG MD PROCEDURE: CXR1VW - CHEST 1VW CHEST 1VW REASON: s/p CABG COMPARISON: 10/15/2024 FINDINGS: Heart size is stable. There is decreasing atelectasis medial left lung base. Lungs are otherwise clear. Left chest tube remains in place, there is no pneumothorax. IMPRESSION: 1. Improving postop chest. DICTATED BY: MISBAH BLISS MD DATE: 10/16/24920 ELECTRONICALLY SIGNED BY: MISBAH BLISS MD DATE: 10/16/[address] surgeon recommendations Follow cardiology recommendations Multimodal pain management Monitoring H&H Monitor chest tube output Chest x-ray in the morning Start SBT's as tolerated IABP managed by CV/Cardiology Monitor ABGs Transfuse if absolutely necessary to keep hemoglobin above 8 Maintain O2 sats greater than 92% Incentive spirometry once extubated Glycemic control with goal of 80-180 Referral for cardiac rehabilitation Speech to eval once patient is extubated monitor electrolytes: K Goal of 4 Magnesium goal of 2 Replace accordingly Plan to DC home NEURO: Minimize central acting medications as possible. Fall Precautions. Well lighted room through the day and minimize interruptions through the night to prevent acute delirium. PULMONARY: Supplemental 02 as needed Titrate Fio2 to keep Spo2 > or = 90% DuoNebs and CPT as needed IS hourly while awake for pulmonary hygiene Out of bed to chair as tolerated CARDIOVASCULAR: Follow hemodynamics. Titrate vasopressor to keep MAP >65 or systolic blood pressure >95mmHg DIPS: Epinephrine LINES: Central line Chest tubes Arterial line GI & NUTRITION: Continue nutritional support Aspirations precautions Prokinetic agents and laxatives as needed KIDNEYS & ELECTROLYTES: Strict monitoring of intake and output Daily weights Avoid nephrotoxic agents Monitor electrolytes and replace as needed Goal urine output of 30mL/hr or 0.5mL/kg/hr Urine output: [ ] Fluid Balance: [ ] ENDOCRINE: Maintain blood glucose between 100-180 at all times. Insulin sliding scale for blood glucose management INFECTIOUS DISEASE: Trend temperature. Canales-culture if febrile. Micro: [ ] Antibiotics: [ ] Ancef x3 per CV protocol HEMATOLOGY & COAGULATION: Monitor H&H. Keep Hgb > 7 Transfuse 1 unit of PRBC for Hgb < 7 Transfuse 1 pack of platelets of platelets < 20, 000 Watch for any signs and symptoms of bleeding SKIN: Pressure ulcer prevention per facility protocol Rehab: PT/OT Prophylaxis: GI: Pepcid DVT: Ernst brown Code Status: Full Resuscitation Disposition: ICU Other: Total patient care time exceeds 60 minutes excluding all procedures. Case was discussed and seen with my supervising physician. The above plan was formulated and agreed upon. VJ WEN Oct 16, 2024 10:24"
--- NOTE | 2024-10-16 10:34 | PN ---
SUBJECTIVE: A 79-year-old status post CABG, coursing postoperative day #5. OBJECTIVE: GENERAL: Awake, alert, afebrile, neurologically intact. VITAL SIGNS: Stable as recorded in medical record. CHEST: Midsternum stable. Incision sealed. HEART: Regular rate and rhythm. No rubs, gallops, or murmur. ASSESSMENT AND PLAN: 1. Status post coronary artery bypass graft. 2. Coronary artery disease. The patient is on aspirin and Plavix for stenting of viejas lesion of the left anterior descending. 3. Dyslipidemia. Lipitor 40 mg once a day. 4. Fluid overload. Lasix 20 mg twice a day. PLAN: Discontinue chest tubes. Discontinue line. Out of bed, ambulating. OT, PT, cardiac rehab discharge planning. TID: [id number] RECEIPT: [id number]
[2024-10-16] MEDS: acetaMINOPHEN 325 MG TAB PO PRN (10:48)
[2024-10-16] MEDS: furoSEMIDE 20MG VIAL IV ONE (12:00)
--- NOTE | 2024-10-16 12:23 | NUR ---
PACER WIRES CLIPPED AT THIS TIME.,
--- NOTE | 2024-10-16 12:54 | NUR ---
report and care given to pati lopes, all questions answered. pt aaox3. no distress noted. spouse at bedside.
--- NOTE | 2024-10-16 16:04 | NUR ---
Notes: Met with pt. Pt reported having low appetite and intaking 25-50% of meals due to diarrhea. Last BM 10/16/2024, NKFA, and no WL per pt. Nutrition Concerns: PO intake, Recommendations: Continue to provide Iron as need Provide Vitamin C 500 mg to increase iron absorption Continue Heart Healthy Diet Add Modifiers 60 GMCCD Encourage PO intake as able Consider appetite stimulant if PO intake continues <25%PO intake in 48 hrs. Provide Ensure HP TID with all trays Provide BanaTrol due to diarrhea Continue to provide Vit B Complex as need Continue to provide Folate as need Monitor weight Re weigh as possible Monitor electrolytes Replenish as protocol Monitor goals of care RD to follow + available for consult per protocol Dietetic Student, Deepali Magana Addendum: 10/16/24 at [address] Amended: Links added.
--- NOTE | 2024-10-16 17:09 | PN ---
Ms. Mac is a 79-year-old female that was seen and examined today on 10/05/2024. Patient is a good historian and personal health. Patient states that she came to the emergency department with a chief complaint of bilateral chest wall pain closer to the axilla and pain also radiates to the back. Onset was 9:30 a.m.. Character is described as throbbing. Symptoms are aggravated with palpation and movement. Symptoms are not alleviated with a chiropractic adjustment in fact symptoms became worse after a chiropractic adjustment. There was no alleviating factors Duration of pain is on and off. Patient denies any associated shortness of breath, nausea, vomiting, headache, dizziness. Patient with anemia and thrombocytopenia. Patient complaining of pain at the site of the surgery. There is a chest tube in place. Patient is Rosa catheter in place. There is no obvious bleeding. Exam Exam Vital Signs Vital Signs Date Time Temp Pulse Resp B/P (MAP) Pulse Ox O2 Delivery O2 Flow Rate FiO2 10/05/24 21:54 97.7 70 22 154/71 100 Room Air* 0 21 General Appearance: Alert, Oriented X3, Cooperative, No acute distress HEENT: Atraumatic, EOMI, Mucous membr. moist/pink Respiratory: Clear to auscultation, Normal air movement, NL respiratory effort Cardiovascular: Regular rate, Regular rhythm, Normal S1, Normal S2 Abdominal: Normal bowel sounds, Soft, No tenderness Extremities: No edema Skin: No significant lesion Neuro: Normal speech, Strength at 5/5 X4 ext, Sensation intact, Cranial nerves 3-12 NL Psych/Mental Status: Mental status NL, Mood NL, Thoughts/Content NL ASSESSMENT: [ 1. Coronary artery disease status post surgery 2. Anemia. Post blood transfusion multiple times 3. Thrombocytopenia 4. Chronic renal insufficiency 5. Hypertension 6. Hypothyroidism 7. Postoperative A-fib with RVR with the patient on amiodarone Plan 1. Peripheral blood smear showed red blood cells to be normocytic normochromic. There was no fragment cell or schistocyte. There is no teardrop cell. There is no rouleaux phenomena. There is no pelger-Huet cell. White blood cell with no blasts. There is a clumping of the platelet. Manual platelet count within normal. It is more than 200,000. 2. There was hypersegmented neutrophils. This patient to be started on folic acid 1 mg p.o. daily and vitamin B12 1000 mcg p.o. daily. 3. There was nucleated red blood cell with teardrop cell. This patient could have autoimmune hemolytic anemia. Will ask for direct Shayla to be done on this patient. If it is positive this patient will be started on high-dose dexamethasone. If it is negative then this patient could have myeloproliferative disorder with the patient could benefit from bone marrow biopsy as outpatient. 4. Continue care as per surgery 5. Patient with iron deficiency anemia. This patient to be started on IV iron daily for at least 3 to 5 days then this patient will need oral iron supplement Patient will need GI consult for possible EGD and colonoscopy especially if this patient did not have any in the past Vitals/Labs Vital Signs Date Time Temp Pulse Resp B/P (MAP) Pulse Ox O2 Delivery O2 Flow Rate FiO2 10/16/24 16:45 97.9 75 18 124/63 95 Room Air 10/16/24 12:01 1.0 10/16/24 12:00 24 Laboratory Tests 10/16/24 04:02 Medications Current Medications Morphine Sulfate 2 mg ONCE ONCE IVP Last administered on 10/05/24at 22:22; Start 10/05/24 at 22:30; Stop 10/05/24 at 22:31; Status DC Ketorolac Tromethamine 15 mg ONCE ONCE IV Last administered on 10/05/24at 23:34; Start 10/05/24 at 22:30; Stop 10/05/24 at 22:31; Status DC Nitroglycerin 0.4 mg AD PRN SL; Start 10/05/24 at 22:30; Stop 10/11/24 at 08:37; Status DC Aspirin 162 mg ONCE ONCE PO Last administered on 10/05/24at 23:32; Start 10/05/24 at 23:30; Stop 10/05/24 at 23:31; Status DC Aspirin 81 mg DAILY PO Last administered on 10/16/24at 09:01; Start 10/06/24 at 09:00; Stop 11/05/24 at 08:59 Nitroglycerin 0.5 inch Q8H TD Last administered on 10/10/24at 22:37; Start 10/05/24 at 23:30; Stop 10/11/24 at 08:37; Status DC Ondansetron HCl 4 mg Q6H PRN IV; Start 10/05/24 at 23:30; Stop 10/11/24 at 08:37; Status DC Heparin Sodium (Porcine) 5,000 unit BID SQ; Start 10/06/24 at 09:00; Stop 10/06/24 at 06:29; Status DC Pantoprazole Sodium 40 mg DAILY PO Last administered on 10/10/24at 09:00; Start 10/06/24 at 09:00; Stop 10/11/24 at 08:37; Status DC Acetaminophen 650 mg Q6H PRN PO Last administered on 10/10/24at 06:06; Start 10/05/24 at 23:30; Stop 10/14/24 at 09:10; Status DC Insulin Human Regular INSULIN SLIDING SCAL... ACHS SQ; Start 10/06/24 at 07:30; Stop 10/11/24 at 08:37; Status DC Potassium Chloride 100 ml @ 100 mls/hr AD PRN IV; Start 10/05/24 at 23:30; Stop 10/11/24 at 08:37; Status DC Potassium Chloride 20 meq AD PRN PO Last administered on 10/09/24at 21:00; Start 10/05/24 at 23:30; Stop 10/11/24 at 08:37; Status DC Potassium Chloride 20 meq AD PRN PO; Start 10/05/24 at 23:30; Stop 10/11/24 at 08:37; Status DC Magnesium Sulfate 50 ml @ 0 mls/hr PROTOCOL PRN IV; Start 10/05/24 at 23:30; Stop 10/11/24 at 08:37; Status DC Heparin Sodium (Porcine) *calculation based on ACTUAL B... AD PRN IV Last administered on 10/06/24at 07:19; Start 10/06/24 at 07:30; Stop 10/10/24 at 08:27; Status DC Heparin Sodium/ Dextrose 250 ml @ 0 mls/hr Q6H IV Last administered on 10/08/24at 14:20; Start 10/06/24 at 07:30; Stop 10/10/24 at 08:17; Status DC Atorvastatin Calcium 40 mg ONCE ONCE PO Last administered on 10/06/24at 21:22; Start 10/06/24 at 21:30; Stop 10/06/24 at 21:31; Status DC Clopidogrel Bisulfate 75 mg ONCE ONCE PO Last administered on 10/06/24at 21:22; Start 10/06/24 at 21:30; Stop 10/06/24 at 21:31; Status DC Metoprolol Tartrate 12.5 mg BID PO Last administered on 10/11/24at 06:32; Start 10/07/24 at 09:00; Stop 10/11/24 at 08:37; Status DC Sodium Chloride 500 ml @ 0 mls/hr Q0M IV; Start 10/06/24 at 21:30; Stop 10/11/24 at 08:37; Status DC Lidocaine HCl 20 ml STK-MED ONCE .ROUTE; Start 10/07/24 at 16:23; Stop 10/07/24 at 16:23; Status DC Iohexol 75 ml STK-MED ONCE IV; Start 10/07/24 at 16:23; Stop 10/07/24 at 16:23; Status DC Heparin Sodium (Porcine) 10,000 unit STK-MED ONCE .ROUTE; Start 10/07/24 at 16:23; Stop 10/07/24 at 16:23; Status DC Heparin Sodium/ Sodium Chloride 1,000 ml @ As Directed STK-MED ONCE IV; Start 10/07/24 at 16:23; Stop 10/07/24 at 16:23; Status DC Nitroglycerin 50 mg STK-MED ONCE .ROUTE; Start 10/07/24 at 16:23; Stop 10/07/24 at 16:23; Status DC Fentanyl Citrate 100 mcg STK-MED ONCE .ROUTE; Start 10/07/24 at 16:24; Stop 10/07/24 at 16:24; Status DC Midazolam HCl 2 mg STK-MED ONCE .ROUTE; Start 10/07/24 at 16:24; Stop 10/07/24 at 16:24; Status DC Nicardipine HCl 25 mg STK-MED ONCE IV; Start 10/07/24 at 16:24; Stop 10/07/24 at 16:24; Status DC Sodium Chloride 10 ml Q8H IVP Last administered on 10/16/24at 00:48; Start 10/07/24 at 17:30; Stop 11/06/24 at 17:29 Pharmacy Profile Note 1 each ONCE MISC Last administered on 10/07/24at 23:37; Start 10/07/24 at 17:30; Stop 10/08/24 at 07:12; Status DC Atorvastatin Calcium 20 mg HS PO Last administered on 10/10/24at 20:55; Start 10/08/24 at 21:00; Stop 10/11/24 at 08:37; Status DC Levothyroxine Sodium 100 mcg SYN PO Last administered on 10/16/24at 06:48; Start 10/09/24 at 06:30; Stop 11/08/24 at 06:29 Heparin Sodium/ Dextrose 250 ml @ 0 mls/hr Q6H IV; Start 10/10/24 at 09:00; Stop 10/10/24 at 08:26; Status DC Cefazolin Sodium 2 gm ONCALL PRN IVP; Start 10/10/24 at 12:00; Stop 10/12/24 at 11:59; Status DC Tramadol HCl 25 mg Q6H PRN PO Last administered on 10/10/24at 16:13; Start 10/10/24 at 14:30; Stop 10/11/24 at 08:37; Status DC Cyclobenzaprine HCl 5 mg TID PRN PO; Start 10/10/24 at 14:30; Stop 10/11/24 at 08:37; Status DC Epinephrine HCl 10 mg/Sodium Chloride 250 ml @ 0 mls/hr AD PRN IV; Start 10/11/24 at 07:00; Stop 10/11/24 at 09:01; Status DC Norepinephrine Bitartrate 250 ml @ 0 mls/hr AD PRN IV; Start 10/11/24 at 07:00; Stop 10/11/24 at 09:03; Status DC Aminocaproic Acid 23221 mg/Sodium Chloride 480 ml @ 0 mls/hr AD PRN IV; Start 10/11/24 at 07:00; Stop 11/10/24 at 06:59 Cefazolin Sodium 1 gm STK-MED ONCE .ROUTE; Start 10/11/24 at 06:50; Stop 10/11/24 at 06:51; Status DC Heparin Sodium/ Sodium Chloride 500 ml @ As Directed STK-MED ONCE IV; Start 10/11/24 at 06:51; Stop 10/11/24 at 06:51; Status DC Papaverine HCl 60 mg STK-MED ONCE .ROUTE; Start 10/11/24 at 06:51; Stop 10/11/24 at 06:51; Status DC Cefazolin Sodium 2 gm STK-MED ONCE .ROUTE; Start 10/11/24 at 06:53; Stop 10/11/24 at 06:54; Status DC Sodium Chloride 1,000 ml @ As Directed STK-MED ONCE IV; Start 10/11/24 at 06:53; Stop 10/11/24 at 06:54; Status DC Protamine Sulfate 250 mg STK-MED ONCE IV; Start 10/11/24 at 07:56; Stop 10/11/24 at 07:56; Status DC Lidocaine HCl 100 mg STK-MED ONCE .ROUTE; Start 10/11/24 at 07:56; Stop 10/11/24 at 07:56; Status DC Heparin Sodium (Porcine) 10,000 unit STK-MED ONCE .ROUTE; Start 10/11/24 at 07:56; Stop 10/11/24 at 07:56; Status DC Epinephrine HCl 1 mg STK-MED ONCE .ROUTE; Start 10/11/24 at 07:56; Stop 10/11/24 at 07:56; Status DC Sodium Bicarbonate 200 ml @ As Directed STK-MED ONCE .ROUTE; Start 10/11/24 at 07:56; Stop 10/11/24 at 07:56; Status DC Norepinephrine Bitartrate 4 mg STK-MED ONCE IV; Start 10/11/24 at 07:56; Stop 10/11/24 at 07:56; Status DC Fentanyl Citrate 1,000 mcg STK-MED ONCE IJ; Start 10/11/24 at 07:56; Stop 10/11/24 at 07:57; Status DC Propofol 200 mg STK-MED ONCE IV; Start 10/11/24 at 07:57; Stop 10/11/24 at 07:57; Status DC Midazolam HCl 2 mg STK-MED ONCE .ROUTE; Start 10/11/24 at 07:57; Stop 10/11/24 at 07:57; Status DC Rocuronium [place] 50 mg STK-MED ONCE .ROUTE; Start 10/11/24 at 07:57; Stop 10/11/24 at 07:57; Status DC Ketamine HCl 50 mg STK-MED ONCE .ROUTE; Start 10/11/24 at 07:57; Stop 10/11/24 at 07:58; Status DC Nitroglycerin/ Dextrose 1 ml @ As Directed STK-MED ONCE .ROUTE; Start 10/11/24 at 08:27; Stop 10/11/24 at 08:27; Status DC Atorvastatin Calcium 40 mg HS PO Last administered on 10/13/24at 20:32; Start 10/11/24 at 21:00; Stop 10/14/24 at 09:11; Status DC Acetaminophen 1,000 mg Q6H6 IV Last administered on 10/12/24at 05:06; Start 10/11/24 at 12:00; Stop 10/12/24 at 11:59; Status DC Aspirin 81 mg ONCE ONCE NG; Start 10/11/24 at 12:00; Stop 10/11/24 at 08:42; Status DC Docusate Sodium 100 mg BID PO Last administered on 10/16/24at 09:01; Start 10/12/24 at 09:00; Stop 11/11/24 at 08:59 Lactulose 20 gm BID PRN PO; Start 10/11/24 at 09:00; Stop 11/10/24 at 08:59 Furosemide 20 mg Q12H PO Last administered on 10/16/24at 09:01; Start 10/13/24 at 09:00; Stop 11/12/24 at 08:59 Furosemide 20 mg Q12H IV Last administered on 10/12/24at 21:18; Start 10/12/24 at 09:00; Stop 10/13/24 at 08:59; Status DC Enoxaparin Sodium 30 mg DAILY SQ; Start 10/14/24 at 09:00; Stop 10/11/24 at 14:00; Status DC Metoprolol Tartrate 12.5 mg BID PO Last administered on 10/16/24at 09:01; Start 10/13/24 at 09:00; Stop 11/12/24 at 08:59 Magnesium Hydroxide 30 ml DAILY PRN PO; Start 10/11/24 at 09:00; Stop 11/10/24 at 08:59 Dexmedetomidine/ Sodium Chloride 400 mcg PROTOCOL IV; Start 10/11/24 at 09:00; Stop 10/12/24 at 08:59; Status DC Acetaminophen 650 mg Q6H PRN PO Last administered on 10/16/24at 10:48; Start 10/11/24 at 09:00; Stop 11/10/24 at 08:59 Sodium Chloride 1,000 ml @ 10 mls/hr ONCE IV; Start 10/11/24 at 09:00; Stop 10/11/24 at 08:52; Status DC Sodium Chloride 10 ml Q8H PRN IVP; Start 10/11/24 at 09:00; Stop 11/10/24 at 08:59 Morphine Sulfate 0.5 mg Q2H PRN IV; Start 10/11/24 at 09:00; Stop 10/12/24 at 08:59; Status DC Morphine Sulfate 1 mg Q2H PRN IV; Start 10/11/24 at 09:00; Stop 10/16/24 at 11:59; Status DC Acetaminophen 650 mg Q4H PRN RC; Start 10/11/24 at 09:00; Stop 11/10/24 at 08:59 Ondansetron HCl 4 mg Q6H PRN IV Last administered on 10/13/24at 08:20; Start 10/11/24 at 09:00; Stop 11/10/24 at 08:59 Sodium Chloride 500 ml @ 0 mls/hr AD IV; Start 10/11/24 at 09:00; Stop 11/10/24 at 08:59 Nitroglycerin/ Dextrose 0 ml @ 0 mls/hr AD IV Last administered on 10/11/24at 12:00; Start 10/11/24 at 09:00; Stop 10/14/24 at 08:59; Status DC Propofol 100 ml @ 0 mls/hr AD PRN IV; Start 10/11/24 at 09:00; Stop 10/15/24 at 08:59; Status DC Norepinephrine Bitartrate 250 ml @ 0 mls/hr AD PRN IV Last administered on 10/12/24at 08:08; Start 10/11/24 at 09:00; Stop 11/10/24 at 08:59 Epinephrine HCl 10 mg/Sodium Chloride 250 ml @ 7.716 mls/ hr AD PRN IV; Start 10/11/24 at 09:00; Stop 10/16/24 at 08:59; Status DC Aminocaproic Acid 92080 mg/Sodium Chloride 310 ml @ 25 mls/hr AD IV; Start 10/11/24 at 09:00; Stop 10/11/24 at 08:54; Status DC Calcium Gluconate 1 gm/Sodium Chloride 60 ml @ 200 mls/hr AD PRN IV Last administered on 10/13/24at 17:20; Start 10/11/24 at 09:00; Stop 11/10/24 at 08:59 Magnesium Sulfate 50 ml @ 12.5 mls/hr AD PRN IV Last administered on 10/12/24at 23:52; Start 10/11/24 at 09:00; Stop 11/10/24 at 08:59 Potassium Chloride 100 ml @ 100 mls/hr AD PRN IV Last administered on 10/16/24at 09:02; Start 10/11/24 at 09:00; Stop 11/10/24 at 08:59 Potassium Phosphate 250 ml @ 42 mls/hr AD PRN IV; Start 10/11/24 at 09:00; Stop 11/10/24 at 08:59 Albumin Human 250 ml @ 0 mls/hr AD PRN IV Last administered on 10/11/24at 23:20; Start 10/11/24 at 09:00; Stop 10/11/24 at 23:20; Status DC Acetaminophen 650 mg Q4H PRN PO; Start 10/11/24 at 09:00; Stop 11/10/24 at 08:59 Insulin Human Regular 100 unit/ Sodium Chloride 100 ml @ 0 mls/hr AD IV Last administered on 10/11/24at 23:19; Start 10/11/24 at 09:00; Stop 10/13/24 at 08:59; Status DC Cefazolin Sodium 2 gm Q8H IVPB Last administered on 10/12/24at 06:21; Start 10/11/24 at 14:00; Stop 10/12/24 at 06:01; Status DC Tramadol HCl 25 mg Q6H PRN PO; Start 10/11/24 at 09:00; Stop 10/16/24 at 08:59; Status DC Tramadol HCl 50 mg Q6H PRN PO Last administered on 10/14/24at 08:29; Start 10/11/24 at 09:00; Stop 10/16/24 at 08:59; Status DC Famotidine 20 mg BID IV; Start 10/11/24 at 09:00; Stop 10/11/24 at 09:03; Status DC Sodium Bicarbonate 50 meq AD PRN IV Last administered on 10/11/24at 18:14; Start 10/11/24 at 09:00; Stop 10/14/24 at 08:59; Status DC Dextrose 50 ml AD PRN IV; Start 10/11/24 at 09:00; Stop 10/13/24 at 07:52; Status DC Glucagon 1 mg AD PRN IM; Start 10/11/24 at 09:00; Stop 10/13/24 at 07:52; Status DC Sodium Chloride 1,000 ml @ 10 mls/hr ONCE ONCE IV Last administered on 10/11/24at 10:30; Start 10/11/24 at 09:00; Stop 10/14/24 at 09:10; Status DC Famotidine 20 mg Q24H IV Last administered on 10/16/24at 09:01; Start 10/11/24 at 09:30; Stop 11/10/24 at 08:59 Vasopressin 20 units STK-MED ONCE .ROUTE; Start 10/11/24 at 09:42; Stop 10/11/24 at 09:42; Status DC Ephedrine Sulfate 50 mg STK-MED ONCE .ROUTE; Start 10/11/24 at 09:42; Stop 10/11/24 at 09:43; Status DC Protamine Sulfate 250 mg STK-MED ONCE IV; Start 10/11/24 at 09:54; Stop 10/11/24 at 09:54; Status DC Protamine Sulfate 50 mg STK-MED ONCE .ROUTE; Start 10/11/24 at 09:54; Stop 10/11/24 at 09:54; Status DC Heparin Sodium (Porcine) 10,000 unit STK-MED ONCE .ROUTE; Start 10/11/24 at 09:54; Stop 10/11/24 at 09:54; Status DC Vasopressin 40 units/Sodium Chloride 40 ml @ 0 mls/hr PROTOCOL IV; Start 10/11/24 at 11:00; Stop 11/10/24 at 10:59 Lidocaine HCl/ Dextrose 250 ml @ 0 mls/hr AD PRN IV Last administered on 10/12/24at 14:44; Start 10/11/24 at 11:00; Stop 10/12/24 at 19:18; Status DC Lidocaine HCl/ Dextrose 250 ml @ As Directed STK-MED ONCE IV; Start 10/11/24 at 10:57; Stop 10/11/24 at 10:57; Status DC Amiodarone HCl 150 mg/Dextrose 103 ml @ 618 mls/hr ONCE IV Last administered on 10/11/24at 11:57; Start 10/11/24 at 12:00; Stop 10/11/24 at 12:09; Status DC Amiodarone HCl 360 mg/Dextrose 207.2 ml @ 33.3 mls/hr AD IV Last administered on 10/11/24at 12:04; Start 10/11/24 at 12:00; Stop 10/12/24 at 19:18; Status DC Amiodarone HCl 540 mg/Dextrose 310.8 ml @ 16.7 mls/hr [id number] IV Last administered on 10/11/24at 18:20; Start 10/11/24 at 12:00; Stop 11/10/24 at 11:59 Atropine Sulfate 1 mg STK-MED ONCE IVP; Start 10/11/24 at 12:42; Stop 10/11/24 at 12:42; Status DC Iohexol 35,000 mg STK-MED ONCE IV; Start 10/11/24 at 12:42; Stop 10/11/24 at 12:42; Status DC Heparin Sodium (Porcine) 10,000 unit STK-MED ONCE .ROUTE; Start 10/11/24 at 12:42; Stop 10/11/24 at 12:42; Status DC Heparin Sodium/ Sodium Chloride 1,000 ml @ As Directed STK-MED ONCE IV; Start 10/11/24 at 12:42; Stop 10/11/24 at 12:43; Status DC Nitroglycerin 50 mg STK-MED ONCE .ROUTE; Start 10/11/24 at 12:42; Stop 10/11/24 at 12:43; Status DC Lidocaine HCl 20 ml STK-MED ONCE .ROUTE; Start 10/11/24 at 12:43; Stop 10/11/24 at 12:43; Status DC Bivalirudin 250 mg STK-MED ONCE IV; Start 10/11/24 at 13:27; Stop 10/11/24 at 13:27; Status DC Iohexol 35,000 mg STK-MED ONCE IV; Start 10/11/24 at 13:34; Stop 10/11/24 at 13:34; Status DC Clopidogrel Bisulfate 300 mg STK-MED ONCE .ROUTE; Start 10/11/24 at 13:45; Stop 10/11/24 at 13:47; Status DC Clopidogrel Bisulfate 75 mg DAILY PO Last administered on 10/16/24at 09:01; Start 10/12/24 at 09:00; Stop 11/11/24 at 08:59 Heparin Sodium/ Dextrose 250 ml @ 0 mls/hr PROTOCOL IV Last administered on 10/11/24at 16:14; Start 10/11/24 at 16:00; Stop 10/12/24 at 19:18; Status DC Dextrose 50 ml AD PRN IV; Start 10/11/24 at 15:00; Stop 11/10/24 at 14:59 Glucagon 1 mg AD PRN IM; Start 10/11/24 at 15:00; Stop 11/10/24 at 14:59 Heparin Sodium/ Dextrose 250 ml @ 0 mls/hr PROTOCOL IV; Start 10/11/24 at 16:00; Stop 10/11/24 at 15:24; Status DC Cefazolin Sodium 2 gm STK-MED ONCE IVPB Last administered on 10/11/24at 08:30; Start 10/11/24 at 08:30; Stop 10/11/24 at 20:01; Status DC Cefazolin Sodium 1 gm STK-MED ONCE IRRIG Last administered on 10/11/24at 09:00; Start 10/11/24 at 09:00; Stop 10/11/24 at 20:01; Status DC Papaverine HCl 60 mg STK-MED ONCE IRRIG Last administered on 10/11/24at 09:00; Start 10/11/24 at 09:00; Stop 10/11/24 at 20:01; Status DC Heparin Sodium (Porcine) 5,000 unit STK-MED ONCE IRRIG Last administered on 10/11/24at 09:00; Start 10/11/24 at 09:00; Stop 10/11/24 at 20:01; Status DC Furosemide 20 mg ONCE ONCE IV; Start 10/12/24 at 02:30; Stop 10/12/24 at 02:31; Status DC Furosemide 20 mg STK-MED ONCE .ROUTE Last administered on 10/12/24at 02:20; Start 10/12/24 at 02:16; Stop 10/12/24 at 02:17; Status DC Albumin Human 250 ml @ As Directed STK-MED ONCE IV Last administered on 10/12/24at 21:19; Start 10/12/24 at 17:49; Stop 10/12/24 at 17:50; Status DC Amiodarone HCl 200 mg DAILY PO Last administered on 10/16/24at 09:01; Start 10/13/24 at 09:00; Stop 11/12/24 at 08:59 Insulin Human Regular INSULIN SLIDING SCAL... ACHS SQ; Start 10/13/24 at 11:30; Stop 11/12/24 at 11:29 Potassium Chloride 20 meq AD PRN PO Last administered on 10/16/24at 06:53; Start 10/14/24 at 09:00; Stop 11/13/24 at 08:59 Atorvastatin Calcium 40 mg HS PO Last administered on 10/15/24at 21:50; Start 10/14/24 at 21:00; Stop 11/10/24 at 20:59 Iron Sucrose 200 mg ONCE ONCE IV; Start 10/17/24 at 18:00; Stop 10/14/24 at 18:16; Status DC Folic Acid 1 mg DAILY PO Last administered on 10/16/24at 09:01; Start 10/15/24 at 21:00; Stop 11/14/24 at 20:59 Vitamin B Complex 1,000 mcg DAILY PO Last administered on 10/16/24at 09:01; Start 10/15/24 at 21:00; Stop 11/14/24 at 20:59 Iron Sucrose 200 mg AD IV; Start 10/14/24 at 18:30; Stop 10/14/24 at 18:34; Status DC Iron Sucrose 200 mg Q24H IV Last administered on 10/16/24at 00:44; Start 10/14/24 at 19:00; Stop 10/16/24 at 19:01 Furosemide 20 mg ONCE ONCE IV; Start 10/16/24 at 12:00; Stop 10/16/24 at 12:01; Status DC NIKHIL FLETCHER MD Oct 16, 2024 17:08
--- NOTE | 2024-10-16 18:22 | PN ---
CARDIOLOGY Reason for consult: NSTEMI HPI/story at presentation: This is a pleasant 79-year-old female with past medical history as below presents for chest discomfort. Patient was having mostly back pain and bilateral shoulder pain that was present yesterday morning and then subsequently, was in the ER for further evaluation and had significant elevated troponins therefore, cardiology was consulted for further evaluation and management Subjective: 10/06/2024 no active cardiac complaints 10/07/2024 no chest pain 10/08/2024 no further symptoms 10/09/2024 no complaints 10/10/2024 no complaints 10/11/2024 intubated 10/13/2024 no complaints 10/14/2024 no complaints 10/16/2024 doiarrhea Past medical history: See below Allergies, Meds See chart ros as noted on in HPI Vitals see chart PHYSICAL EXAMINATION GENERAL: intubated 10/11/2024 HEENT: Nonicteric sclerae, non traumatic HEART: Regular rate and rhythm with no murmurs LUNGS:intubated 10/11/2024 ABDOMEN: No acute issues, non tender GENITAL, RECTAL: deferred SKIN: No rash NEUROLOGIC: intubated 10/11/2024 EXTREMITIES: No edema ASSESSMENT NSTEMI,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 Plan for cardiac catheterization tomorrow to further evaluate coronaries Echo pending. risk-benefit discussed extensively and patient wants to proceed. 10/07/2024 Cardiac catheterization today for further evaluation of non-STEMI. Risk-benefit discussed. Primary team addressing possible scleroderma given issues with dysphagia. No active chest pain at this time echo with EF of 35- 40%, on metoprolol aspirin - add statin 10/08/2024 No active cardiac complaints at this time, no further issues with chest or back pain, awaiting final decision from CV surgery regarding surgery. Continue maximal medical therapy. 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 There is a question of GI bleeding with dark stools. Will get an occult blood and hold heparin for now. On atorvastatin beta-estefania and aspirin, continue. Hemoglobin stable. Carotid duplex was negative. Seen and examined 10/04/2024 at around 5 PM 10/09/2024 Was previously evaluated CV surgery, timing of surgery to be determined. On statin beta-estefania aspirin. Labs okay, occult blood has been ordered and is still pending. No further issues with dark stools per report. Currently off anticoagulation. Seen and examined 10/09/2024 at around 1730 10/10/2024 Had an episode of chest discomfort/upper back pain, managed conservatively at this time, heparin was not started. Troponins are trending down. Potential plans for surgery tomorrow. Patient however, thinks this might be related to spinal issues. Seen and examined 10/10/2024 at around 0900 10/11/2024 I was called in the late morning today by Dr. العراقي with concerns of ST elevations after surgery. Patient was taken emergently to cardiac catheterization and underwent intervention to the LAD. Patient had an occluded WILSON. Postprocedure, patient was doing well with hemodynamic stability and improvement in pressor requirements. Potential plans for extubation also noted. Seen and examined 10/11/2024 multiple times 10/12/2024 Extubated, blood pressures are doing okay off pressors. Currently, plan is to get off the balloon pump and then reevaluate. On antiplatelet therapy, s/p PCI to the LAD yesterday in the setting of NSTEMI. Bypass. Recovering well. Family at bedside, questions answered. Plan to switch amiodarone to p.o., agree with stopping lidocaine. Anemia will need to be addressed, transfuse as needed. Seen and examined 10/12/2024 at around 1700 10/13/2024 Doing well, hemodynamic stable, not any pressors, had issues with hematoma from the balloon pump yesterday and did receive 1 unit of transfusion. Otherwise, doing well, states that she is on the left 24, not very ambulatory at this time. Asking to be able to get up hopefully, this can be accomplished tomorrow or day after once the left-sided sheath is out. Appreciate CV surgery, critical care. Currently on Plavix in spite of thrombocytopenia given recent PCI to the LAD. On Amio beta-estefania Lasix Plavix atorvastatin. No longer on lidocaine. Watch hemoglobin. Renal function slightly elevated as well but this is better than yesterday. 10/14/2024 Was on nitroglycerin during the mornings but blood pressures are now better off nitro. Otherwise, doing well. No active cardiac complaints at this time. Appreciate CV surgery. Critical care. Having issues with diarrhea, small, will need to be watched. Sheath to be removed later today hemoglobin being replaced oncology on board anemia. X-ray with improvement. Currently on metoprolol Lasix Plavix statin aspirin amiodarone from a cardiac standpoint. Seen and examined at around 10 AM 10/15/2024 Feeling better, no active cardiac complaints at this time. Art line has been removed. Sitting by the side of the bed today. Still feeling tired but improving. Physical therapy on board. Getting blood hematology on board, seen and examined 10/15/2024 at around 1130AM 10/16/2024 Continuing to have issues with diarrhea and headaches. Currently on the floor. Pressure primary team. Ambulating more, awaiting eventual placement and therapy/rehab. Currently on metoprolol, Lasix, Plavix statin and aspirin continue. Seen and examined 10/16/2024 at around 1800. ATTESTATION I was involved substantially in the care of this patient Number and complexity of problems addressed: 1 acute illness taht is a threat to life or bodily function Amount and or complexity of data Review of prior external note(s) from each unique source: 2+ Ordering of each unique test : 0 Review of the result(s) of each unique test: 2+ Assessment requiring an independent historian(s): No Independent interpretation of test performed by another MD/QHCP/appropriate source (not separately reported) : No Discussion of management or test interpretation with external MD/QHCP/appropriate source (not separately reported) : yes, CVT surgery Risk status (cardiac, billing related): moderate Vitals/Labs Vital Signs Date Time Temp Pulse Resp B/P (MAP) Pulse Ox O2 Delivery O2 Flow Rate FiO2 10/16/24 16:45 97.9 75 18 124/63 95 Room Air 10/16/24 12:01 1.0 10/16/24 12:00 24 Laboratory Tests 10/16/24 04:02 Medications Current Medications Morphine Sulfate 2 mg ONCE ONCE IVP Last administered on 10/05/24at 22:22; Start 10/05/24 at 22:30; Stop 10/05/24 at 22:31; Status DC Ketorolac Tromethamine 15 mg ONCE ONCE IV Last administered on 10/05/24at 23:34; Start 10/05/24 at 22:30; Stop 10/05/24 at 22:31; Status DC Nitroglycerin 0.4 mg AD PRN SL; Start 10/05/24 at 22:30; Stop 10/11/24 at 08:37; Status DC Aspirin 162 mg ONCE ONCE PO Last administered on 10/05/24at 23:32; Start 10/05/24 at 23:30; Stop 10/05/24 at 23:31; Status DC Aspirin 81 mg DAILY PO Last administered on 10/16/24at 09:01; Start 10/06/24 at 09:00; Stop 11/05/24 at 08:59 Nitroglycerin 0.5 inch Q8H TD Last administered on 10/10/24at 22:37; Start 10/05/24 at 23:30; Stop 10/11/24 at 08:37; Status DC Ondansetron HCl 4 mg Q6H PRN IV; Start 10/05/24 at 23:30; Stop 10/11/24 at 08:37; Status DC Heparin Sodium (Porcine) 5,000 unit BID SQ; Start 10/06/24 at 09:00; Stop 10/06/24 at 06:29; Status DC Pantoprazole Sodium 40 mg DAILY PO Last administered on 10/10/24at 09:00; Start 10/06/24 at 09:00; Stop 10/11/24 at 08:37; Status DC Acetaminophen 650 mg Q6H PRN PO Last administered on 10/10/24at 06:06; Start 10/05/24 at 23:30; Stop 10/14/24 at 09:10; Status DC Insulin Human Regular INSULIN SLIDING SCAL... ACHS SQ; Start 10/06/24 at 07:30; Stop 10/11/24 at 08:37; Status DC Potassium Chloride 100 ml @ 100 mls/hr AD PRN IV; Start 10/05/24 at 23:30; Stop 10/11/24 at 08:37; Status DC Potassium Chloride 20 meq AD PRN PO Last administered on 10/09/24at 21:00; Start 10/05/24 at 23:30; Stop 10/11/24 at 08:37; Status DC Potassium Chloride 20 meq AD PRN PO; Start 10/05/24 at 23:30; Stop 10/11/24 at 08:37; Status DC Magnesium Sulfate 50 ml @ 0 mls/hr PROTOCOL PRN IV; Start 10/05/24 at 23:30; Stop 10/11/24 at 08:37; Status DC Heparin Sodium (Porcine) *calculation based on ACTUAL B... AD PRN IV Last administered on 10/06/24at 07:19; Start 10/06/24 at 07:30; Stop 10/10/24 at 08:27; Status DC Heparin Sodium/ Dextrose 250 ml @ 0 mls/hr Q6H IV Last administered on 10/08/24at 14:20; Start 10/06/24 at 07:30; Stop 10/10/24 at 08:17; Status DC Atorvastatin Calcium 40 mg ONCE ONCE PO Last administered on 10/06/24at 21:22; Start 10/06/24 at 21:30; Stop 10/06/24 at 21:31; Status DC Clopidogrel Bisulfate 75 mg ONCE ONCE PO Last administered on 10/06/24at 21:22; Start 10/06/24 at 21:30; Stop 10/06/24 at 21:31; Status DC Metoprolol Tartrate 12.5 mg BID PO Last administered on 10/11/24at 06:32; Start 10/07/24 at 09:00; Stop 10/11/24 at 08:37; Status DC Sodium Chloride 500 ml @ 0 mls/hr Q0M IV; Start 10/06/24 at 21:30; Stop 10/11/24 at 08:37; Status DC Lidocaine HCl 20 ml STK-MED ONCE .ROUTE; Start 10/07/24 at 16:23; Stop 10/07/24 at 16:23; Status DC Iohexol 75 ml STK-MED ONCE IV; Start 10/07/24 at 16:23; Stop 10/07/24 at 16:23; Status DC Heparin Sodium (Porcine) 10,000 unit STK-MED ONCE .ROUTE; Start 10/07/24 at 16:23; Stop 10/07/24 at 16:23; Status DC Heparin Sodium/ Sodium Chloride 1,000 ml @ As Directed STK-MED ONCE IV; Start 10/07/24 at 16:23; Stop 10/07/24 at 16:23; Status DC Nitroglycerin 50 mg STK-MED ONCE .ROUTE; Start 10/07/24 at 16:23; Stop 10/07/24 at 16:23; Status DC Fentanyl Citrate 100 mcg STK-MED ONCE .ROUTE; Start 10/07/24 at 16:24; Stop 10/07/24 at 16:24; Status DC Midazolam HCl 2 mg STK-MED ONCE .ROUTE; Start 10/07/24 at 16:24; Stop 10/07/24 at 16:24; Status DC Nicardipine HCl 25 mg STK-MED ONCE IV; Start 10/07/24 at 16:24; Stop 10/07/24 at 16:24; Status DC Sodium Chloride 10 ml Q8H IVP Last administered on 10/16/24at 17:34; Start 10/07/24 at 17:30; Stop 11/06/24 at 17:29 Pharmacy Profile Note 1 each ONCE MISC Last administered on 10/07/24at 23:37; Start 10/07/24 at 17:30; Stop 10/08/24 at 07:12; Status DC Atorvastatin Calcium 20 mg HS PO Last administered on 10/10/24at 20:55; Start 10/08/24 at 21:00; Stop 10/11/24 at 08:37; Status DC Levothyroxine Sodium 100 mcg SYN PO Last administered on 10/16/24at 06:48; Start 10/09/24 at 06:30; Stop 11/08/24 at 06:29 Heparin Sodium/ Dextrose 250 ml @ 0 mls/hr Q6H IV; Start 10/10/24 at 09:00; Stop 10/10/24 at 08:26; Status DC Cefazolin Sodium 2 gm ONCALL PRN IVP; Start 10/10/24 at 12:00; Stop 10/12/24 at 11:59; Status DC Tramadol HCl 25 mg Q6H PRN PO Last administered on 10/10/24at 16:13; Start 10/10/24 at 14:30; Stop 10/11/24 at 08:37; Status DC Cyclobenzaprine HCl 5 mg TID PRN PO; Start 10/10/24 at 14:30; Stop 10/11/24 at 08:37; Status DC Epinephrine HCl 10 mg/Sodium Chloride 250 ml @ 0 mls/hr AD PRN IV; Start 10/11/24 at 07:00; Stop 10/11/24 at 09:01; Status DC Norepinephrine Bitartrate 250 ml @ 0 mls/hr AD PRN IV; Start 10/11/24 at 07:00; Stop 10/11/24 at 09:03; Status DC Aminocaproic Acid 00999 mg/Sodium Chloride 480 ml @ 0 mls/hr AD PRN IV; Start 10/11/24 at 07:00; Stop 11/10/24 at 06:59 Cefazolin Sodium 1 gm STK-MED ONCE .ROUTE; Start 10/11/24 at 06:50; Stop 10/11/24 at 06:51; Status DC Heparin Sodium/ Sodium Chloride 500 ml @ As Directed STK-MED ONCE IV; Start 10/11/24 at 06:51; Stop 10/11/24 at 06:51; Status DC Papaverine HCl 60 mg STK-MED ONCE .ROUTE; Start 10/11/24 at 06:51; Stop 10/11/24 at 06:51; Status DC Cefazolin Sodium 2 gm STK-MED ONCE .ROUTE; Start 10/11/24 at 06:53; Stop 10/11/24 at 06:54; Status DC Sodium Chloride 1,000 ml @ As Directed STK-MED ONCE IV; Start 10/11/24 at 06:53; Stop 10/11/24 at 06:54; Status DC Protamine Sulfate 250 mg STK-MED ONCE IV; Start 10/11/24 at 07:56; Stop 10/11/24 at 07:56; Status DC Lidocaine HCl 100 mg STK-MED ONCE .ROUTE; Start 10/11/24 at 07:56; Stop 10/11/24 at 07:56; Status DC Heparin Sodium (Porcine) 10,000 unit STK-MED ONCE .ROUTE; Start 10/11/24 at 07:56; Stop 10/11/24 at 07:56; Status DC Epinephrine HCl 1 mg STK-MED ONCE .ROUTE; Start 10/11/24 at 07:56; Stop 10/11/24 at 07:56; Status DC Sodium Bicarbonate 200 ml @ As Directed STK-MED ONCE .ROUTE; Start 10/11/24 at 07:56; Stop 10/11/24 at 07:56; Status DC Norepinephrine Bitartrate 4 mg STK-MED ONCE IV; Start 10/11/24 at 07:56; Stop 10/11/24 at 07:56; Status DC Fentanyl Citrate 1,000 mcg STK-MED ONCE IJ; Start 10/11/24 at 07:56; Stop 10/11/24 at 07:57; Status DC Propofol 200 mg STK-MED ONCE IV; Start 10/11/24 at 07:57; Stop 10/11/24 at 07:57; Status DC Midazolam HCl 2 mg STK-MED ONCE .ROUTE; Start 10/11/24 at 07:57; Stop 10/11/24 at 07:57; Status DC Rocuronium [place] 50 mg STK-MED ONCE .ROUTE; Start 10/11/24 at 07:57; Stop 10/11/24 at 07:57; Status DC Ketamine HCl 50 mg STK-MED ONCE .ROUTE; Start 10/11/24 at 07:57; Stop 10/11/24 at 07:58; Status DC Nitroglycerin/ Dextrose 1 ml @ As Directed STK-MED ONCE .ROUTE; Start 10/11/24 at 08:27; Stop 10/11/24 at 08:27; Status DC Atorvastatin Calcium 40 mg HS PO Last administered on 10/13/24at 20:32; Start 10/11/24 at 21:00; Stop 10/14/24 at 09:11; Status DC Acetaminophen 1,000 mg Q6H6 IV Last administered on 10/12/24at 05:06; Start 10/11/24 at 12:00; Stop 10/12/24 at 11:59; Status DC Aspirin 81 mg ONCE ONCE NG; Start 10/11/24 at 12:00; Stop 10/11/24 at 08:42; Status DC Docusate Sodium 100 mg BID PO Last administered on 10/16/24at 09:01; Start 10/12/24 at 09:00; Stop 11/11/24 at 08:59 Lactulose 20 gm BID PRN PO; Start 10/11/24 at 09:00; Stop 11/10/24 at 08:59 Furosemide 20 mg Q12H PO Last administered on 10/16/24at 09:01; Start 10/13/24 at 09:00; Stop 11/12/24 at 08:59 Furosemide 20 mg Q12H IV Last administered on 10/12/24at 21:18; Start 10/12/24 at 09:00; Stop 10/13/24 at 08:59; Status DC Enoxaparin Sodium 30 mg DAILY SQ; Start 10/14/24 at 09:00; Stop 10/11/24 at 14:00; Status DC Metoprolol Tartrate 12.5 mg BID PO Last administered on 10/16/24at 09:01; Start 10/13/24 at 09:00; Stop 11/12/24 at 08:59 Magnesium Hydroxide 30 ml DAILY PRN PO; Start 10/11/24 at 09:00; Stop 11/10/24 at 08:59 Dexmedetomidine/ Sodium Chloride 400 mcg PROTOCOL IV; Start 10/11/24 at 09:00; Stop 10/12/24 at 08:59; Status DC Acetaminophen 650 mg Q6H PRN PO Last administered on 10/16/24at 10:48; Start 10/11/24 at 09:00; Stop 11/10/24 at 08:59 Sodium Chloride 1,000 ml @ 10 mls/hr ONCE IV; Start 10/11/24 at 09:00; Stop 10/11/24 at 08:52; Status DC Sodium Chloride 10 ml Q8H PRN IVP; Start 10/11/24 at 09:00; Stop 11/10/24 at 08:59 Morphine Sulfate 0.5 mg Q2H PRN IV; Start 10/11/24 at 09:00; Stop 10/12/24 at 08:59; Status DC Morphine Sulfate 1 mg Q2H PRN IV; Start 10/11/24 at 09:00; Stop 10/16/24 at 11:59; Status DC Acetaminophen 650 mg Q4H PRN RC; Start 10/11/24 at 09:00; Stop 11/10/24 at 08:59 Ondansetron HCl 4 mg Q6H PRN IV Last administered on 10/13/24at 08:20; Start 10/11/24 at 09:00; Stop 11/10/24 at 08:59 Sodium Chloride 500 ml @ 0 mls/hr AD IV; Start 10/11/24 at 09:00; Stop 11/10/24 at 08:59 Nitroglycerin/ Dextrose 0 ml @ 0 mls/hr AD IV Last administered on 10/11/24at 12:00; Start 10/11/24 at 09:00; Stop 10/14/24 at 08:59; Status DC Propofol 100 ml @ 0 mls/hr AD PRN IV; Start 10/11/24 at 09:00; Stop 10/15/24 at 08:59; Status DC Norepinephrine Bitartrate 250 ml @ 0 mls/hr AD PRN IV Last administered on 10/12/24at 08:08; Start 10/11/24 at 09:00; Stop 11/10/24 at 08:59 Epinephrine HCl 10 mg/Sodium Chloride 250 ml @ 7.716 mls/ hr AD PRN IV; Start 10/11/24 at 09:00; Stop 10/16/24 at 08:59; Status DC Aminocaproic Acid 42916 mg/Sodium Chloride 310 ml @ 25 mls/hr AD IV; Start 10/11/24 at 09:00; Stop 10/11/24 at 08:54; Status DC Calcium Gluconate 1 gm/Sodium Chloride 60 ml @ 200 mls/hr AD PRN IV Last administered on 10/13/24at 17:20; Start 10/11/24 at 09:00; Stop 11/10/24 at 08:59 Magnesium Sulfate 50 ml @ 12.5 mls/hr AD PRN IV Last administered on 10/12/24at 23:52; Start 10/11/24 at 09:00; Stop 11/10/24 at 08:59 Potassium Chloride 100 ml @ 100 mls/hr AD PRN IV Last administered on 10/16/24at 09:02; Start 10/11/24 at 09:00; Stop 11/10/24 at 08:59 Potassium Phosphate 250 ml @ 42 mls/hr AD PRN IV; Start 10/11/24 at 09:00; Stop 11/10/24 at 08:59 Albumin Human 250 ml @ 0 mls/hr AD PRN IV Last administered on 10/11/24at 23:20; Start 10/11/24 at 09:00; Stop 10/11/24 at 23:20; Status DC Acetaminophen 650 mg Q4H PRN PO; Start 10/11/24 at 09:00; Stop 11/10/24 at 08:59 Insulin Human Regular 100 unit/ Sodium Chloride 100 ml @ 0 mls/hr AD IV Last administered on 10/11/24at 23:19; Start 10/11/24 at 09:00; Stop 10/13/24 at 08:59; Status DC Cefazolin Sodium 2 gm Q8H IVPB Last administered on 10/12/24at 06:21; Start 10/11/24 at 14:00; Stop 10/12/24 at 06:01; Status DC Tramadol HCl 25 mg Q6H PRN PO; Start 10/11/24 at 09:00; Stop 10/16/24 at 08:59; Status DC Tramadol HCl 50 mg Q6H PRN PO Last administered on 10/14/24at 08:29; Start 10/11/24 at 09:00; Stop 10/16/24 at 08:59; Status DC Famotidine 20 mg BID IV; Start 10/11/24 at 09:00; Stop 10/11/24 at 09:03; Status DC Sodium Bicarbonate 50 meq AD PRN IV Last administered on 10/11/24at 18:14; Start 10/11/24 at 09:00; Stop 10/14/24 at 08:59; Status DC Dextrose 50 ml AD PRN IV; Start 10/11/24 at 09:00; Stop 10/13/24 at 07:52; Status DC Glucagon 1 mg AD PRN IM; Start 10/11/24 at 09:00; Stop 10/13/24 at 07:52; Status DC Sodium Chloride 1,000 ml @ 10 mls/hr ONCE ONCE IV Last administered on 10/11/24at 10:30; Start 10/11/24 at 09:00; Stop 10/14/24 at 09:10; Status DC Famotidine 20 mg Q24H IV Last administered on 10/16/24at 09:01; Start 10/11/24 at 09:30; Stop 11/10/24 at 08:59 Vasopressin 20 units STK-MED ONCE .ROUTE; Start 10/11/24 at 09:42; Stop 10/11/24 at 09:42; Status DC Ephedrine Sulfate 50 mg STK-MED ONCE .ROUTE; Start 10/11/24 at 09:42; Stop 10/11/24 at 09:43; Status DC Protamine Sulfate 250 mg STK-MED ONCE IV; Start 10/11/24 at 09:54; Stop 10/11/24 at 09:54; Status DC Protamine Sulfate 50 mg STK-MED ONCE .ROUTE; Start 10/11/24 at 09:54; Stop 10/11/24 at 09:54; Status DC Heparin Sodium (Porcine) 10,000 unit STK-MED ONCE .ROUTE; Start 10/11/24 at 09:54; Stop 10/11/24 at 09:54; Status DC Vasopressin 40 units/Sodium Chloride 40 ml @ 0 mls/hr PROTOCOL IV; Start 10/11/24 at 11:00; Stop 11/10/24 at 10:59 Lidocaine HCl/ Dextrose 250 ml @ 0 mls/hr AD PRN IV Last administered on 10/12/24at 14:44; Start 10/11/24 at 11:00; Stop 10/12/24 at 19:18; Status DC Lidocaine HCl/ Dextrose 250 ml @ As Directed STK-MED ONCE IV; Start 10/11/24 at 10:57; Stop 10/11/24 at 10:57; Status DC Amiodarone HCl 150 mg/Dextrose 103 ml @ 618 mls/hr ONCE IV Last administered on 10/11/24at 11:57; Start 10/11/24 at 12:00; Stop 10/11/24 at 12:09; Status DC Amiodarone HCl 360 mg/Dextrose 207.2 ml @ 33.3 mls/hr AD IV Last administered on 10/11/24at 12:04; Start 10/11/24 at 12:00; Stop 10/12/24 at 19:18; Status DC Amiodarone HCl 540 mg/Dextrose 310.8 ml @ 16.7 mls/hr [id number] IV Last administered on 10/11/24at 18:20; Start 10/11/24 at 12:00; Stop 11/10/24 at 11:59 Atropine Sulfate 1 mg STK-MED ONCE IVP; Start 10/11/24 at 12:42; Stop 10/11/24 at 12:42; Status DC Iohexol 35,000 mg STK-MED ONCE IV; Start 10/11/24 at 12:42; Stop 10/11/24 at 12:42; Status DC Heparin Sodium (Porcine) 10,000 unit STK-MED ONCE .ROUTE; Start 10/11/24 at 12:42; Stop 10/11/24 at 12:42; Status DC Heparin Sodium/ Sodium Chloride 1,000 ml @ As Directed STK-MED ONCE IV; Start 10/11/24 at 12:42; Stop 10/11/24 at 12:43; Status DC Nitroglycerin 50 mg STK-MED ONCE .ROUTE; Start 10/11/24 at 12:42; Stop 10/11/24 at 12:43; Status DC Lidocaine HCl 20 ml STK-MED ONCE .ROUTE; Start 10/11/24 at 12:43; Stop 10/11/24 at 12:43; Status DC Bivalirudin 250 mg STK-MED ONCE IV; Start 10/11/24 at 13:27; Stop 10/11/24 at 13:27; Status DC Iohexol 35,000 mg STK-MED ONCE IV; Start 10/11/24 at 13:34; Stop 10/11/24 at 13:34; Status DC Clopidogrel Bisulfate 300 mg STK-MED ONCE .ROUTE; Start 10/11/24 at 13:45; Stop 10/11/24 at 13:47; Status DC Clopidogrel Bisulfate 75 mg DAILY PO Last administered on 10/16/24at 09:01; Start 10/12/24 at 09:00; Stop 11/11/24 at 08:59 Heparin Sodium/ Dextrose 250 ml @ 0 mls/hr PROTOCOL IV Last administered on 10/11/24at 16:14; Start 10/11/24 at 16:00; Stop 10/12/24 at 19:18; Status DC Dextrose 50 ml AD PRN IV; Start 10/11/24 at 15:00; Stop 11/10/24 at 14:59 Glucagon 1 mg AD PRN IM; Start 10/11/24 at 15:00; Stop 11/10/24 at 14:59 Heparin Sodium/ Dextrose 250 ml @ 0 mls/hr PROTOCOL IV; Start 10/11/24 at 16:00; Stop 10/11/24 at 15:24; Status DC Cefazolin Sodium 2 gm STK-MED ONCE IVPB Last administered on 10/11/24at 08:30; Start 10/11/24 at 08:30; Stop 10/11/24 at 20:01; Status DC Cefazolin Sodium 1 gm STK-MED ONCE IRRIG Last administered on 10/11/24at 09:00; Start 10/11/24 at 09:00; Stop 10/11/24 at 20:01; Status DC Papaverine HCl 60 mg STK-MED ONCE IRRIG Last administered on 10/11/24at 09:00; Start 10/11/24 at 09:00; Stop 10/11/24 at 20:01; Status DC Heparin Sodium (Porcine) 5,000 unit STK-MED ONCE IRRIG Last administered on 10/11/24at 09:00; Start 10/11/24 at 09:00; Stop 10/11/24 at 20:01; Status DC Furosemide 20 mg ONCE ONCE IV; Start 10/12/24 at 02:30; Stop 10/12/24 at 02:31; Status DC Furosemide 20 mg STK-MED ONCE .ROUTE Last administered on 10/12/24at 02:20; Start 10/12/24 at 02:16; Stop 10/12/24 at 02:17; Status DC Albumin Human 250 ml @ As Directed STK-MED ONCE IV Last administered on 10/12/24at 21:19; Start 10/12/24 at 17:49; Stop 10/12/24 at 17:50; Status DC Amiodarone HCl 200 mg DAILY PO Last administered on 10/16/24at 09:01; Start 10/13/24 at 09:00; Stop 11/12/24 at 08:59 Insulin Human Regular INSULIN SLIDING SCAL... ACHS SQ; Start 10/13/24 at 11:30; Stop 11/12/24 at 11:29 Potassium Chloride 20 meq AD PRN PO Last administered on 10/16/24at 06:53; Start 10/14/24 at 09:00; Stop 11/13/24 at 08:59 Atorvastatin Calcium 40 mg HS PO Last administered on 10/15/24at 21:50; Start 10/14/24 at 21:00; Stop 11/10/24 at 20:59 Iron Sucrose 200 mg ONCE ONCE IV; Start 10/17/24 at 18:00; Stop 10/14/24 at 18:16; Status DC Folic Acid 1 mg DAILY PO Last administered on 10/16/24at 09:01; Start 10/15/24 at 21:00; Stop 11/14/24 at 20:59 Vitamin B Complex 1,000 mcg DAILY PO Last administered on 10/16/24at 09:01; Start 10/15/24 at 21:00; Stop 11/14/24 at 20:59 Iron Sucrose 200 mg AD IV; Start 10/14/24 at 18:30; Stop 10/14/24 at 18:34; Status DC Iron Sucrose 200 mg Q24H IV Last administered on 10/16/24at 00:44; Start 10/14/24 at 19:00; Stop 10/16/24 at 19:01 Furosemide 20 mg ONCE ONCE IV; Start 10/16/24 at 12:00; Stop 10/16/24 at 12:01; Status DC GUANACO ORELLANA MD Oct 16, 2024 18:22
--- NOTE | 2024-10-16 19:55 | CONS ---
GASTROENTEROLOGY CONSULTATION NOTE Date of Consultation: Oct 16, 2024 Time of Consultation: 19:54 History of Present Illness: This is a 79-year-old female who was admitted on 10/05/2024 due to chest pain. Chest pain radiating to the back. On 10/08/2024 she had a left heart cath revealing CAD for which CV surgery was consulted. On 10/11/2024 she underwent CABG x 2. On 10/14/2024 she underwent a second heart cath with stenting of the LAD and angioplasty of the LAD. We were consulted today due to anemia. Hemoglobin trended down to 7.1. Platelets have been low since 10/13/2024. Platelet count today increased to 156. INR today 0.97. FOBT was negative on 10/10/2024. Patient was last seen in clinic in 2019 for which she underwent a colonoscopy however was a poor prep. She never returned back to clinic. Review of Systems: CONSTITUTIONAL: No malaise or change in sensation of wellbeing. ENMT: No rhinorrhea, otorrhea, sinus pain, ear ache. CARDIOVASCULAR: No angina, palpitations, orthopnea or paroxysmal dyspnea. RESPIRATORY: No SOB. GASTROINTESTINAL: No abdominal pain, nausea, vomiting, diarrhea, hematemesis, melena or change in the patient's habitual bowel movements consistency/number. GENITOURINARY: No dysuria, hematuria or change in bladder continence. MUSCULOSKELETAL: No new muscle pain or decrease in muscular strength. No new joint swelling, redness or tenderness. SKIN: No new rash. Past Medical History: ADDITIONAL PAST MEDICAL HISTORY: [Hypertension, hypothyroidism, Diabetes mellitius type2] SOCIAL HISTORY: [Negative for smoking, alcohol use, drug use. Patient lives with the [facility]. Patient has good access to health care through her insurance. Patient denies difficulty paying her bills. 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 Patient is typically independent of all her ADLs.] SURGICAL HISTORY: [Thyroidectomy] Coded Allergies: No Known Drug Allergies (Unverified Allergy, Unknown, 06/16/19) Physical Exam: GEN: Awake, alert, oriented in person, time and place, and in no acute distress. HEENT: No sinus tenderness. Tympanic membranes were not examined. No rhinorrhea. Oral pharyngeal mucosa is pink, moist and within normal limits. Neck is supple with no cervical lymphadenopathy, thyromegaly or JVD. CHEST: Inspection, palpation and percussion of the chest were unremarkable. Lung auscultation revealed normal breath sounds bilaterally. CARDIAC: PMI is within normal limits. Heart sounds are regular. Normal S1, S2. No gallop or murmur. ABD: Soft, non-tender and not distended. No peritoneal signs on palpation. No organomegaly. Normal bowel sounds. EXT: No cyanosis or clubbing. No edema. SKIN: Intact. No rashes. JOINTS: No evidence of synovitis or acute arthritis. NEURO: Alert and oriented to name, place and person. Cranial nerve examination is unremarkable. No focal motor deficits. Normal speech. Gait is normal. Strength is normal. Vital Sign (Last 24 Hours) 10/16/24 10/16/24 10/16/24 12:00 12:01 16:45 Temp 97.9 Pulse 75 Resp 18 B/P (MAP) 124/63 Pulse Ox 95 O2 Delivery Room Air O2 Flow Rate 1.0 FiO2 24 Intake & Output (last 24hrs) 10/15/24 10/15/24 10/16/24 15:00 23:00 07:00 Intake Total 240 ml 200 ml Output Total 345 ml 605 ml Balance 240 ml -145 ml -605 ml Laboratory: [ ] Laboratory: Test 10/16/24 12:43 10/16/24 04:02 10/15/24 21:05 Range/Units Whole Blood Glucose 106 70-110 MG/DL White Blood Count 12.7 H 4.8-10.8 K/uL Red Blood Count 2.42 L 4.00-5.50 MIL/uL Hemoglobin 7.1 L 12.0-16.0 g/dL Hematocrit 21.9 L 36-48 % Mean Corpuscular Volume 90.5 79-99 fL Mean Corpuscular Hemoglobin 29.3 27.0-33.0 pg Mean Corpuscular Hemoglobin Concent 32.4 32.0-36.0 g/dL Red Cell Distribution Width 15.3 11.0-15.5 % Platelet Count 156 # 130-400 K/uL Mean Platelet Volume 11.1 H 7.5-10.5 fL Nucleated Red Blood Cells 1.8 H 0.0-0.19 % Sodium Level 142 136-145 mmol/L Potassium Level 3.4 L 3.5-5.1 mmol/L Chloride Level 106 101-111 mmol/L Carbon Dioxide Level 30 21-32 mmol/L Blood Urea Nitrogen 40 H 7-18 mg/dL Creatinine 0.9 0.5-1.0 mg/dL Glomerular Filtration Rate Calc 65 >90 mL/min Random Glucose 101 70-105 mg/dL Total Calcium 7.1 L 8.5-10.1 mg/dL Magnesium Level 1.90 1.80-2.40 mg/dL Prothrombin Time 10.9 9.6-11.6 SEC Prothromb Time International Ratio 0.97 0.85-1.15 Activated Partial Thromboplast Time 29.1 26.3-35.5 SEC Current Medications Medications (Trade) Dose Ordered Sig/Rashad Route PRN Reason Start Time Stop Time Status Last Admin Dose Admin Acetaminophen (TYLenol 325MG TAB) 650 mg Q4H PRN PO Temp >38.3C(AFTER EXTUBATION) 10/11/24 09:00 11/10/24 08:59 Acetaminophen (TYLenol 325MG TAB) 650 mg Q6H PRN PO MILD PAIN (1-3) 10/11/24 09:00 11/10/24 08:59 10/16/24 10:48 650 MG Acetaminophen (TYLenol 325MG TAB) 650 mg Q6H PRN PO TEMPERATURE GREATER THAN 101.5 10/05/24 23:30 10/14/24 09:10 DC 10/10/24 06:06 650 MG Acetaminophen (TYLenol 650MG SUPPOSITORY) 650 mg Q4H PRN RC Temp >38.3C WHILE INTUBATED 10/11/24 09:00 11/10/24 08:59 Acetaminophen (acetaMINOPHEN) 1,000 mg Q6H6 IV 10/11/24 12:00 10/12/24 11:59 DC 10/12/24 05:06 1,000 MG Albumin Human 250 ml @ 0 mls/hr AD PRN IV IF HEMODYNAMICALLY UNSTABLE 10/11/24 09:00 10/11/24 23:20 DC 10/11/24 23:20 250 MLS/HR Aminocaproic Acid 90692 mg/Sodium Chloride 310 ml @ 25 mls/hr AD IV 10/11/24 09:00 10/11/24 08:54 DC Aminocaproic Acid 83881 mg/Sodium Chloride 480 ml @ 0 mls/hr AD PRN IV BLEEDING CONTROL 10/11/24 07:00 11/10/24 06:59 Amiodarone HCl (pacERONE 200MG) 200 mg DAILY PO 10/13/24 09:00 11/12/24 08:59 10/16/24 09:01 200 MG Amiodarone HCl 150 mg/Dextrose 103 ml @ 618 mls/hr ONCE IV 10/11/24 12:00 10/11/24 12:09 DC 10/11/24 11:57 618 MLS/HR Amiodarone HCl 360 mg/Dextrose 207.2 ml @ 33.3 mls/hr AD IV 10/11/24 12:00 10/12/24 19:18 DC 10/11/24 12:04 33.3 MLS/HR Amiodarone HCl 540 mg/Dextrose 310.8 ml @ 16.7 mls/hr [id number] IV 10/11/24 12:00 11/10/24 11:59 10/11/24 18:20 16.7 MLS/HR Aspirin (Aspirin 81mg Chew Tab) 81 mg DAILY PO 10/06/24 09:00 11/05/24 08:59 10/16/24 09:01 81 MG Atorvastatin Calcium (LIPItor 20MG) 20 mg HS PO 10/08/24 21:00 10/11/24 08:37 DC 10/10/24 20:55 20 MG Atorvastatin Calcium (LIPItor 20MG) 40 mg HS PO 10/11/24 21:00 10/14/24 09:11 DC 10/13/24 20:32 40 MG Atorvastatin Calcium (LIPItor 40MG) 40 mg HS PO 10/14/24 21:00 11/10/24 20:59 10/15/24 21:50 40 MG Calcium Gluconate 1 gm/Sodium Chloride 60 ml @ 200 mls/hr AD PRN IV HYPOCALCEMIA 10/11/24 09:00 11/10/24 08:59 10/13/24 17:20 200 MLS/HR Cefazolin Sodium (Ancef) 2 gm ONCALL PRN IVP SURGERY 10/10/24 12:00 10/12/24 11:59 DC Cefazolin Sodium (Ancef) 2 gm Q8H IVPB 10/11/24 14:00 10/12/24 06:01 DC 10/12/24 06:21 2 GM Clopidogrel Bisulfate (plaVIX 75MG) 75 mg DAILY PO 10/12/24 09:00 11/11/24 08:59 10/16/24 09:01 75 MG Cyclobenzaprine HCl (Cyclobenzaprine HCl) 5 mg TID PRN PO MUSCLE SPASMS 10/10/24 14:30 10/11/24 08:37 DC Dexmedetomidine/ Sodium Chloride (PRECEdex 400MCG/ 100ML-NS) 400 mcg PROTOCOL IV 10/11/24 09:00 10/12/24 08:59 DC Dextrose (D50w) 50 ml AD PRN IV HYPOGLYCEMIA PROTOCOL 10/11/24 09:00 10/13/24 07:52 DC Dextrose (D50w) 50 ml AD PRN IV HYPOGLYCEMIA PROTOCOL 10/11/24 15:00 11/10/24 14:59 Docusate Sodium (COLace 100MG CAP) 100 mg BID PO 10/12/24 09:00 11/11/24 08:59 10/16/24 09:01 100 MG Enoxaparin Sodium (Lovenox) 30 mg DAILY SQ 10/14/24 09:00 10/11/24 14:00 DC Epinephrine HCl 10 mg/Sodium Chloride 250 ml @ 7.716 mls/ hr AD PRN IV POST-OP CARDIOVASCULAR ORDERS 10/11/24 09:00 10/16/24 08:59 DC Epinephrine HCl 10 mg/Sodium Chloride 250 ml @ 0 mls/hr AD PRN IV TITRATE 10/11/24 07:00 10/11/24 09:01 DC Famotidine (Pepcid 20mg Vial) 20 mg BID IV 10/11/24 09:00 10/11/24 09:03 DC Famotidine (Pepcid 20mg Vial) 20 mg Q24H IV 10/11/24 09:30 11/10/24 08:59 10/16/24 09:01 20 MG Folic Acid (FOLic ACID 1 MG TABLET) 1 mg DAILY PO 10/15/24 21:00 11/14/24 20:59 10/16/24 09:01 1 MG Furosemide (LASix 20MG TAB) 20 mg Q12H PO 10/13/24 09:00 11/12/24 08:59 10/16/24 09:01 20 MG Furosemide (LASix 20MG VIAL) 20 mg Q12H IV 10/12/24 09:00 10/13/24 08:59 DC 10/12/24 21:18 20 MG Glucagon (Glucagon 1mg Kit) 1 mg AD PRN IM HYPOGLYCEMIA PROTOCOL 10/11/24 09:00 10/13/24 07:52 DC Glucagon (Glucagon 1mg Kit) 1 mg AD PRN IM HYPOGLYCEMIA PROTOCOL 10/11/24 15:00 11/10/24 14:59 Heparin Sodium (Porcine) (HEParin 5,000 UNIT VIAL) *calculation based on ACTUAL B... AD PRN IV HEPARIN PROTOCOL 10/06/24 07:30 10/10/24 08:27 DC 10/06/24 07:19 3,877.5 UNIT Heparin Sodium (Porcine) (HEParin 5,000 UNIT VIAL) 5,000 unit BID SQ 10/06/24 09:00 10/06/24 06:29 DC Heparin Sodium/ Dextrose 250 ml @ 0 mls/hr PROTOCOL IV 10/11/24 16:00 10/11/24 15:24 DC Heparin Sodium/ Dextrose 250 ml @ 0 mls/hr PROTOCOL IV 10/11/24 16:00 10/12/24 19:18 DC 10/11/24 16:14 8.7 MLS/HR Heparin Sodium/ Dextrose 250 ml @ 0 mls/hr Q6H IV 10/10/24 09:00 10/10/24 08:26 DC Heparin Sodium/ Dextrose 250 ml @ 0 mls/hr Q6H IV 10/06/24 07:30 10/10/24 08:17 DC 10/08/24 14:20 0 MLS/HR Insulin Human Regular (humuLIN R 100 UNIT/ML 3ML) INSULIN SLIDING SCAL... ACHS SQ 10/13/24 11:30 11/12/24 11:29 Insulin Human Regular (humuLIN R 100 UNIT/ML 3ML) INSULIN SLIDING SCAL... ACHS SQ 10/06/24 07:30 10/11/24 08:37 DC Insulin Human Regular 100 unit/ Sodium Chloride 100 ml @ 0 mls/hr AD IV 10/11/24 09:00 10/13/24 08:59 DC 10/11/24 23:19 3 MLS/HR Iron Sucrose (VenoFER) 200 mg AD IV 10/14/24 18:30 10/14/24 18:34 DC Iron Sucrose (VenoFER) 200 mg Q24H IV 10/14/24 19:00 10/16/24 19:01 DC 10/16/24 18:32 200 MG Lactulose (Constulose 20gm/ 30ml Udcup) 20 gm BID PRN PO CONSTIPATION 10/11/24 09:00 11/10/24 08:59 Levothyroxine Sodium (SYNTHroid 100MCG TAB) 100 mcg SYN PO 10/09/24 06:30 11/08/24 06:29 10/16/24 06:48 100 MCG Lidocaine HCl/ Dextrose 250 ml @ 0 mls/hr AD PRN IV TITRATE 10/11/24 11:00 10/12/24 19:18 DC 10/12/24 14:44 7.5 MLS/HR Magnesium Hydroxide (Milk Of Magnesium 30ml) 30 ml DAILY PRN PO CONSTIPATION 10/11/24 09:00 11/10/24 08:59 Magnesium Sulfate 50 ml @ 12.5 mls/hr AD PRN IV MAG LEVEL LESS THAN 2.0 10/11/24 09:00 11/10/24 08:59 10/12/24 23:52 12.5 MLS/HR Magnesium Sulfate 50 ml @ 0 mls/hr PROTOCOL PRN IV h 10/05/24 23:30 10/11/24 08:37 DC Metoprolol Tartrate (loprESSOR) 12.5 mg BID PO 10/07/24 09:00 10/11/24 08:37 DC 10/11/24 06:32 12.5 MG Metoprolol Tartrate (loprESSOR) 12.5 mg BID PO 10/13/24 09:00 11/12/24 08:59 10/16/24 09:01 12.5 MG Morphine Sulfate (morPHINE 2MG SYG) 0.5 mg Q2H PRN IV MODERATE PAIN (4-6) 10/11/24 09:00 10/12/24 08:59 DC Morphine Sulfate (morPHINE 2MG SYG) 1 mg Q2H PRN IV SEVERE PAIN (7-10) 10/11/24 09:00 10/16/24 11:59 DC Nitroglycerin (Nitroglycerin 1gm Oint) 0.5 inch Q8H TD 10/05/24 23:30 10/11/24 08:37 DC 10/10/24 22:37 0.5 INCH Nitroglycerin (Nitrostat) 0.4 mg AD PRN SL CHEST PAIN 10/05/24 22:30 10/11/24 08:37 DC Nitroglycerin/ Dextrose 0 ml @ 0 mls/hr AD IV 10/11/24 09:00 10/14/24 08:59 DC 10/11/24 12:00 0 MLS/HR Norepinephrine Bitartrate 250 ml @ 0 mls/hr AD PRN IV TITRATE 10/11/24 07:00 10/11/24 09:03 DC Norepinephrine Bitartrate 250 ml @ 0 mls/hr AD PRN IV POST-OP CARDIOVASCULAR ORDERS 10/11/24 09:00 11/10/24 08:59 10/12/24 08:08 11.3 MLS/HR Ondansetron HCl (zoFRAN 4MG INJ) 4 mg Q6H PRN IV NAUSEA/VOMITING 10/11/24 09:00 11/10/24 08:59 10/13/24 08:20 4 MG Ondansetron HCl (zoFRAN 4MG INJ) 4 mg Q6H PRN IV NAUSEA/VOMITING 10/05/24 23:30 10/11/24 08:37 DC Pantoprazole Sodium (PROTonix 40MG TAB) 40 mg DAILY PO 10/06/24 09:00 10/11/24 08:37 DC 10/10/24 09:00 40 MG Pharmacy Profile Note (Pharmacy Communication) 1 each ONCE MISC 10/07/24 17:30 10/08/24 07:12 DC 10/07/24 23:37 1 EACH Potassium Phosphate 250 ml @ 42 mls/hr AD PRN IV LOW PHOS LEVEL 10/11/24 09:00 11/10/24 08:59 Potassium Chloride 100 ml @ 100 mls/hr AD PRN IV HYPOKALEMIA 10/11/24 09:00 11/10/24 08:59 10/16/24 09:02 100 MLS/HR Potassium Chloride 100 ml @ 100 mls/hr AD PRN IV POTASSIUM PROTOCOL 10/05/24 23:30 10/11/24 08:37 DC Potassium Chloride (K-Dur/Klor-Con 20meq) 20 meq AD PRN PO POTASSIUM PROTOCOL 10/05/24 23:30 10/11/24 08:37 DC Potassium Chloride (KCl 10% Elixir 20meq/15ml) 20 meq AD PRN PO POTASSIUM PROTOCOL 10/14/24 09:00 11/13/24 08:59 10/16/24 06:53 20 MEQ Potassium Chloride (KCl 10% Elixir 20meq/15ml) 20 meq AD PRN PO POTASSIUM PROTOCOL 10/05/24 23:30 10/11/24 08:37 DC 10/09/24 21:00 20 MEQ Propofol 100 ml @ 0 mls/hr AD PRN IV SEDATION 10/11/24 09:00 10/15/24 08:59 DC Sodium Bicarbonate (Sodium Bicarb 50meq 50ml Vial) 50 meq AD PRN IV OTHER[SEE DOSING INSTRUCTIONS] 10/11/24 09:00 10/14/24 08:59 DC 10/11/24 18:14 50 MEQ Sodium Chloride 500 ml @ 0 mls/hr AD IV 10/11/24 09:00 11/10/24 08:59 Sodium Chloride 500 ml @ 0 mls/hr Q0M IV 10/06/24 21:30 10/11/24 08:37 DC Sodium Chloride 1,000 ml @ 10 mls/hr ONCE IV 10/11/24 09:00 10/11/24 08:52 DC Sodium Chloride (NS Flush 10ml) 10 ml Q8H IVP 10/07/24 17:30 11/06/24 17:29 10/16/24 17:34 10 ML Sodium Chloride (NS Flush 10ml) 10 ml Q8H PRN IVP IV LINE FLUSH 10/11/24 09:00 11/10/24 08:59 Tramadol HCl (UltRAM) 25 mg Q6H PRN PO MODERATE PAIN (4-6) 10/10/24 14:30 10/11/24 08:37 DC 10/10/24 16:13 25 MG Tramadol HCl (UltRAM) 25 mg Q6H PRN PO MODERATE PAIN (4-6) 10/11/24 09:00 10/16/24 08:59 DC Tramadol HCl (UltRAM) 50 mg Q6H PRN PO SEVERE PAIN (7-10) 10/11/24 09:00 10/16/24 08:59 DC 10/14/24 08:29 50 MG Vasopressin 40 units/Sodium Chloride 40 ml @ 0 mls/hr PROTOCOL IV 10/11/24 11:00 11/10/24 10:59 Vitamin B Complex (Vitamin B-12) 1,000 mcg DAILY PO 10/15/24 21:00 11/14/24 20:59 10/16/24 09:01 1,000 MCG Diagnostics / Radiology: [COPY/PASTE HERE IF NO REPORTS PLEASE DELETE SECTION] Assessment: Concern for GI bleed Anemia, multifactorial CAD Plan: Obtain NM GI bleeding scan Pending the above, will consider EGD if cleared by cardio and CT surgery Continue GI prophylaxis Advance diet as tolerated Avoid NSAIDs Antireflux measures Monitor H&H and transfuse as needed Call with questions, concerns or change in clinical status Patient to follow-up at clinic post discharge Thank you for this consult JAMIA AKBAR [employer] Oct 16, 2024 19:55
[2024-10-17] VITALS (8 sets, daily range): BP systolic 118–140; BP diastolic 57–82; PULSE 66–85; RESP 18–20; TEMP 97.6–98.4; O2SAT 96–98
[2024-10-17 04:03] LABS: CREATININE 0.6 mg/dL (0.5-1.0); POTASSIUM 3.3 mmol/L (3.5-5.1)
--- NOTE | 2024-10-17 05:08 | NUR ---
Paged hospitalist team at this time for addtl labs
[2024-10-17 06:31] LABS: HEMATOCRIT 32.1 % (36-48); MEAN CORPUSCULAR HEMOGLOBIN 29.4 pg (27.0-33.0); MEAN CORPUSCULAR HGB CONC 32.7 g/dL (32.0-36.0); MEAN CORPUSCULAR VOLUME 89.9 fL (79-99); NUCLEATED RED BLOOD CELLS 1.4 % (0.0-0.19); RED BLOOD CELL COUNT(AUTO) 3.57 MIL/uL (4.00-5.50); RED CELL DISTRIBUTION WIDTH 15.9 % (11.0-15.5)
--- NOTE | 2024-10-17 08:30 | PN ---
GASTROENTEROLOGY PROGRESS NOTE Date of Visit: Oct 17, 2024 Time of Visit: 08:29 Events / Notes: No acute events overnight. NM GI bleeding scan without GI bleed. Hgb improved. No overt GI bleeding. Denies fever, chills, abdominal pain, N/V, hematemesis, bloating, constipation, diarrhea, melena or hematochezia. Review of Systems: CONSTITUTIONAL: No malaise or change in sensation of wellbeing. ENMT: No rhinorrhea, otorrhea, sinus pain, ear ache. CARDIOVASCULAR: No angina, palpitations, orthopnea or paroxysmal dyspnea. RESPIRATORY: No SOB. GASTROINTESTINAL: No abdominal pain, nausea, vomiting, diarrhea, hematemesis, melena or change in the patient's habitual bowel movements consistency/number. GENITOURINARY: No dysuria, hematuria or change in bladder continence. MUSCULOSKELETAL: No new muscle pain or decrease in muscular strength. No new joint swelling, redness or tenderness. SKIN: No new rash. Physical Exam: GEN: Awake, alert, oriented in person, time and place, and in no acute distress. HEENT: No sinus tenderness. Tympanic membranes were not examined. No rhinorrhea. Oral pharyngeal mucosa is pink, moist and within normal limits. Neck is supple with no cervical lymphadenopathy, thyromegaly or JVD. CHEST: Inspection, palpation and percussion of the chest were unremarkable. Lung auscultation revealed normal breath sounds bilaterally. CARDIAC: PMI is within normal limits. Heart sounds are regular. Normal S1, S2. No gallop or murmur. ABD: Soft, non-tender and not distended. No peritoneal signs on palpation. No organomegaly. Normal bowel sounds. EXT: No cyanosis or clubbing. No edema. SKIN: Intact. No rashes. JOINTS: No evidence of synovitis or acute arthritis. NEURO: Alert and oriented to name, place and person. Cranial nerve examination is unremarkable. No focal motor deficits. Normal speech. Gait is normal. Strength is normal. Vital Signs (last 8hr) Date Time Temp Pulse Resp B/P (MAP) Pulse Ox O2 Delivery O2 Flow Rate FiO2 10/17/24 08:23 97 Room Air* 0 21 10/17/24 08:05 97.7 74 18 127/61 96 Room Air 10/17/24 03:48 97.9 68 20 119/57 100 Room Air Laboratory: [ ] Laboratory: Test 10/17/24 05:12 10/17/24 03:14 10/16/24 04:02 10/15/24 21:05 Range/Units Whole Blood Glucose 91 70-110 MG/DL White Blood Count 15.0 H 4.8-10.8 K/uL Red Blood Count 3.57 #L 4.00-5.50 MIL/uL Hemoglobin 10.5 #L 12.0-16.0 g/dL Hematocrit 32.1 #L 36-48 % Mean Corpuscular Volume 89.9 79-99 fL Mean Corpuscular Hemoglobin 29.4 27.0-33.0 pg Mean Corpuscular Hemoglobin Concent 32.7 32.0-36.0 g/dL Red Cell Distribution Width 15.9 H 11.0-15.5 % Platelet Count 193 130-400 K/uL Mean Platelet Volume 10.8 H 7.5-10.5 fL Nucleated Red Blood Cells 1.4 H 0.0-0.19 % Sodium Level 142 136-145 mmol/L Potassium Level 3.3 L 3.5-5.1 mmol/L Chloride Level 107 101-111 mmol/L Carbon Dioxide Level 28 21-32 mmol/L Blood Urea Nitrogen 22 H 7-18 mg/dL Creatinine 0.6 0.5-1.0 mg/dL Glomerular Filtration Rate Calc 91 >90 mL/min Random Glucose 93 70-105 mg/dL Total Calcium 7.4 L 8.5-10.1 mg/dL Magnesium Level 1.90 1.80-2.40 mg/dL Prothrombin Time 10.9 9.6-11.6 SEC Prothromb Time International Ratio 0.97 0.85-1.15 Activated Partial Thromboplast Time 29.1 26.3-35.5 SEC Current Medications Medications (Trade) Dose Ordered Sig/Rashad Route PRN Reason Start Time Stop Time Status Last Admin Dose Admin Acetaminophen (TYLenol 325MG TAB) 650 mg Q4H PRN PO Temp >38.3C(AFTER EXTUBATION) 10/11/24 09:00 11/10/24 08:59 Acetaminophen (TYLenol 325MG TAB) 650 mg Q6H PRN PO MILD PAIN (1-3) 10/11/24 09:00 11/10/24 08:59 10/16/24 10:48 650 MG Acetaminophen (TYLenol 325MG TAB) 650 mg Q6H PRN PO TEMPERATURE GREATER THAN 101.5 10/05/24 23:30 10/14/24 09:10 DC 10/10/24 06:06 650 MG Acetaminophen (TYLenol 650MG SUPPOSITORY) 650 mg Q4H PRN RC Temp >38.3C WHILE INTUBATED 10/11/24 09:00 11/10/24 08:59 Acetaminophen (acetaMINOPHEN) 1,000 mg Q6H6 IV 10/11/24 12:00 10/12/24 11:59 DC 10/12/24 05:06 1,000 MG Albumin Human 250 ml @ 0 mls/hr AD PRN IV IF HEMODYNAMICALLY UNSTABLE 10/11/24 09:00 10/11/24 23:20 DC 10/11/24 23:20 250 MLS/HR Aminocaproic Acid 96907 mg/Sodium Chloride 310 ml @ 25 mls/hr AD IV 10/11/24 09:00 10/11/24 08:54 DC Aminocaproic Acid 77648 mg/Sodium Chloride 480 ml @ 0 mls/hr AD PRN IV BLEEDING CONTROL 10/11/24 07:00 11/10/24 06:59 Amiodarone HCl (pacERONE 200MG) 200 mg DAILY PO 10/13/24 09:00 11/12/24 08:59 10/17/24 08:20 200 MG Amiodarone HCl 150 mg/Dextrose 103 ml @ 618 mls/hr ONCE IV 10/11/24 12:00 10/11/24 12:09 DC 10/11/24 11:57 618 MLS/HR Amiodarone HCl 360 mg/Dextrose 207.2 ml @ 33.3 mls/hr AD IV 10/11/24 12:00 10/12/24 19:18 DC 10/11/24 12:04 33.3 MLS/HR Amiodarone HCl 540 mg/Dextrose 310.8 ml @ 16.7 mls/hr [id number] IV 10/11/24 12:00 11/10/24 11:59 10/11/24 18:20 16.7 MLS/HR Aspirin (Aspirin 81mg Chew Tab) 81 mg DAILY PO 10/06/24 09:00 11/05/24 08:59 10/17/24 08:20 81 MG Atorvastatin Calcium (LIPItor 20MG) 20 mg HS PO 10/08/24 21:00 10/11/24 08:37 DC 10/10/24 20:55 20 MG Atorvastatin Calcium (LIPItor 20MG) 40 mg HS PO 10/11/24 21:00 10/14/24 09:11 DC 10/13/24 20:32 40 MG Atorvastatin Calcium (LIPItor 40MG) 40 mg HS PO 10/14/24 21:00 11/10/24 20:59 10/16/24 20:36 40 MG Calcium Gluconate 1 gm/Sodium Chloride 60 ml @ 200 mls/hr AD PRN IV HYPOCALCEMIA 10/11/24 09:00 11/10/24 08:59 10/13/24 17:20 200 MLS/HR Cefazolin Sodium (Ancef) 2 gm ONCALL PRN IVP SURGERY 10/10/24 12:00 10/12/24 11:59 DC Cefazolin Sodium (Ancef) 2 gm Q8H IVPB 10/11/24 14:00 10/12/24 06:01 DC 10/12/24 06:21 2 GM Clopidogrel Bisulfate (plaVIX 75MG) 75 mg DAILY PO 10/12/24 09:00 11/11/24 08:59 10/17/24 08:20 75 MG Cyclobenzaprine HCl (Cyclobenzaprine HCl) 5 mg TID PRN PO MUSCLE SPASMS 10/10/24 14:30 10/11/24 08:37 DC Dexmedetomidine/ Sodium Chloride (PRECEdex 400MCG/ 100ML-NS) 400 mcg PROTOCOL IV 10/11/24 09:00 10/12/24 08:59 DC Dextrose (D50w) 50 ml AD PRN IV HYPOGLYCEMIA PROTOCOL 10/11/24 09:00 10/13/24 07:52 DC Dextrose (D50w) 50 ml AD PRN IV HYPOGLYCEMIA PROTOCOL 10/11/24 15:00 11/10/24 14:59 Docusate Sodium (COLace 100MG CAP) 100 mg BID PO 10/12/24 09:00 11/11/24 08:59 10/16/24 09:01 100 MG Enoxaparin Sodium (Lovenox) 30 mg DAILY SQ 10/14/24 09:00 10/11/24 14:00 DC Epinephrine HCl 10 mg/Sodium Chloride 250 ml @ 7.716 mls/ hr AD PRN IV POST-OP CARDIOVASCULAR ORDERS 10/11/24 09:00 10/16/24 08:59 DC Epinephrine HCl 10 mg/Sodium Chloride 250 ml @ 0 mls/hr AD PRN IV TITRATE 10/11/24 07:00 10/11/24 09:01 DC Famotidine (Pepcid 20mg Vial) 20 mg BID IV 10/11/24 09:00 10/11/24 09:03 DC Famotidine (Pepcid 20mg Vial) 20 mg Q24H IV 10/11/24 09:30 11/10/24 08:59 10/17/24 08:21 20 MG Folic Acid (FOLic ACID 1 MG TABLET) 1 mg DAILY PO 10/15/24 21:00 11/14/24 20:59 10/17/24 08:18 1 MG Furosemide (LASix 20MG TAB) 20 mg Q12H PO 10/13/24 09:00 11/12/24 08:59 10/17/24 08:18 20 MG Furosemide (LASix 20MG VIAL) 20 mg Q12H IV 10/12/24 09:00 10/13/24 08:59 DC 10/12/24 21:18 20 MG Glucagon (Glucagon 1mg Kit) 1 mg AD PRN IM HYPOGLYCEMIA PROTOCOL 10/11/24 09:00 10/13/24 07:52 DC Glucagon (Glucagon 1mg Kit) 1 mg AD PRN IM HYPOGLYCEMIA PROTOCOL 10/11/24 15:00 11/10/24 14:59 Heparin Sodium (Porcine) (HEParin 5,000 UNIT VIAL) *calculation based on ACTUAL B... AD PRN IV HEPARIN PROTOCOL 10/06/24 07:30 10/10/24 08:27 DC 10/06/24 07:19 3,877.5 UNIT Heparin Sodium (Porcine) (HEParin 5,000 UNIT VIAL) 5,000 unit BID SQ 10/06/24 09:00 10/06/24 06:29 DC Heparin Sodium/ Dextrose 250 ml @ 0 mls/hr PROTOCOL IV 10/11/24 16:00 10/11/24 15:24 DC Heparin Sodium/ Dextrose 250 ml @ 0 mls/hr PROTOCOL IV 10/11/24 16:00 10/12/24 19:18 DC 10/11/24 16:14 8.7 MLS/HR Heparin Sodium/ Dextrose 250 ml @ 0 mls/hr Q6H IV 10/10/24 09:00 10/10/24 08:26 DC Heparin Sodium/ Dextrose 250 ml @ 0 mls/hr Q6H IV 10/06/24 07:30 10/10/24 08:17 DC 10/08/24 14:20 0 MLS/HR Insulin Human Regular (humuLIN R 100 UNIT/ML 3ML) INSULIN SLIDING SCAL... ACHS SQ 10/13/24 11:30 11/12/24 11:29 Insulin Human Regular (humuLIN R 100 UNIT/ML 3ML) INSULIN SLIDING SCAL... ACHS SQ 10/06/24 07:30 10/11/24 08:37 DC Insulin Human Regular 100 unit/ Sodium Chloride 100 ml @ 0 mls/hr AD IV 10/11/24 09:00 10/13/24 08:59 DC 10/11/24 23:19 3 MLS/HR Iron Sucrose (VenoFER) 200 mg AD IV 10/14/24 18:30 10/14/24 18:34 DC Iron Sucrose (VenoFER) 200 mg Q24H IV 10/14/24 19:00 10/16/24 19:01 DC 10/16/24 18:32 200 MG Lactulose (Constulose 20gm/ 30ml Udcup) 20 gm BID PRN PO CONSTIPATION 10/11/24 09:00 11/10/24 08:59 Levothyroxine Sodium (SYNTHroid 100MCG TAB) 100 mcg SYN PO 10/09/24 06:30 11/08/24 06:29 10/17/24 06:12 100 MCG Lidocaine HCl/ Dextrose 250 ml @ 0 mls/hr AD PRN IV TITRATE 10/11/24 11:00 10/12/24 19:18 DC 10/12/24 14:44 7.5 MLS/HR Magnesium Hydroxide (Milk Of Magnesium 30ml) 30 ml DAILY PRN PO CONSTIPATION 10/11/24 09:00 11/10/24 08:59 Magnesium Sulfate 50 ml @ 12.5 mls/hr AD PRN IV MAG LEVEL LESS THAN 2.0 10/11/24 09:00 11/10/24 08:59 10/12/24 23:52 12.5 MLS/HR Magnesium Sulfate 50 ml @ 0 mls/hr PROTOCOL PRN IV h 10/05/24 23:30 10/11/24 08:37 DC Metoprolol Tartrate (loprESSOR) 12.5 mg BID PO 10/07/24 09:00 10/11/24 08:37 DC 10/11/24 06:32 12.5 MG Metoprolol Tartrate (loprESSOR) 12.5 mg BID PO 10/13/24 09:00 11/12/24 08:59 10/17/24 08:19 12.5 MG Morphine Sulfate (morPHINE 2MG SYG) 0.5 mg Q2H PRN IV MODERATE PAIN (4-6) 10/11/24 09:00 10/12/24 08:59 DC Morphine Sulfate (morPHINE 2MG SYG) 1 mg Q2H PRN IV SEVERE PAIN (7-10) 10/11/24 09:00 10/16/24 11:59 DC Nitroglycerin (Nitroglycerin 1gm Oint) 0.5 inch Q8H TD 10/05/24 23:30 10/11/24 08:37 DC 10/10/24 22:37 0.5 INCH Nitroglycerin (Nitrostat) 0.4 mg AD PRN SL CHEST PAIN 10/05/24 22:30 10/11/24 08:37 DC Nitroglycerin/ Dextrose 0 ml @ 0 mls/hr AD IV 10/11/24 09:00 10/14/24 08:59 DC 10/11/24 12:00 0 MLS/HR Norepinephrine Bitartrate 250 ml @ 0 mls/hr AD PRN IV TITRATE 10/11/24 07:00 10/11/24 09:03 DC Norepinephrine Bitartrate 250 ml @ 0 mls/hr AD PRN IV POST-OP CARDIOVASCULAR ORDERS 10/11/24 09:00 11/10/24 08:59 10/12/24 08:08 11.3 MLS/HR Ondansetron HCl (zoFRAN 4MG INJ) 4 mg Q6H PRN IV NAUSEA/VOMITING 10/11/24 09:00 11/10/24 08:59 10/13/24 08:20 4 MG Ondansetron HCl (zoFRAN 4MG INJ) 4 mg Q6H PRN IV NAUSEA/VOMITING 10/05/24 23:30 10/11/24 08:37 DC Pantoprazole Sodium (PROTonix 40MG TAB) 40 mg DAILY PO 10/06/24 09:00 10/11/24 08:37 DC 10/10/24 09:00 40 MG Pharmacy Profile Note (Pharmacy Communication) 1 each ONCE MISC 10/07/24 17:30 10/08/24 07:12 DC 10/07/24 23:37 1 EACH Potassium Phosphate 250 ml @ 42 mls/hr AD PRN IV LOW PHOS LEVEL 10/11/24 09:00 11/10/24 08:59 Potassium Chloride 100 ml @ 100 mls/hr AD PRN IV HYPOKALEMIA 10/11/24 09:00 11/10/24 08:59 10/16/24 09:02 100 MLS/HR Potassium Chloride 100 ml @ 100 mls/hr AD PRN IV POTASSIUM PROTOCOL 10/05/24 23:30 10/11/24 08:37 DC Potassium Chloride (K-Dur/Klor-Con 20meq) 20 meq AD PRN PO POTASSIUM PROTOCOL 10/05/24 23:30 10/11/24 08:37 DC Potassium Chloride (KCl 10% Elixir 20meq/15ml) 20 meq AD PRN PO POTASSIUM PROTOCOL 10/14/24 09:00 11/13/24 08:59 10/17/24 08:23 20 MEQ Potassium Chloride (KCl 10% Elixir 20meq/15ml) 20 meq AD PRN PO POTASSIUM PROTOCOL 10/05/24 23:30 10/11/24 08:37 DC 10/09/24 21:00 20 MEQ Propofol 100 ml @ 0 mls/hr AD PRN IV SEDATION 10/11/24 09:00 10/15/24 08:59 DC Sodium Bicarbonate (Sodium Bicarb 50meq 50ml Vial) 50 meq AD PRN IV OTHER[SEE DOSING INSTRUCTIONS] 10/11/24 09:00 10/14/24 08:59 DC 10/11/24 18:14 50 MEQ Sodium Chloride 500 ml @ 0 mls/hr AD IV 10/11/24 09:00 11/10/24 08:59 Sodium Chloride 500 ml @ 0 mls/hr Q0M IV 10/06/24 21:30 10/11/24 08:37 DC Sodium Chloride 1,000 ml @ 10 mls/hr ONCE IV 10/11/24 09:00 10/11/24 08:52 DC Sodium Chloride (NS Flush 10ml) 10 ml Q8H IVP 10/07/24 17:30 11/06/24 17:29 10/17/24 08:21 10 ML Sodium Chloride (NS Flush 10ml) 10 ml Q8H PRN IVP IV LINE FLUSH 10/11/24 09:00 11/10/24 08:59 Tramadol HCl (UltRAM) 25 mg Q6H PRN PO MODERATE PAIN (4-6) 10/10/24 14:30 10/11/24 08:37 DC 10/10/24 16:13 25 MG Tramadol HCl (UltRAM) 25 mg Q6H PRN PO MODERATE PAIN (4-6) 10/11/24 09:00 10/16/24 08:59 DC Tramadol HCl (UltRAM) 50 mg Q6H PRN PO SEVERE PAIN (7-10) 10/11/24 09:00 10/16/24 08:59 DC 10/14/24 08:29 50 MG Vasopressin 40 units/Sodium Chloride 40 ml @ 0 mls/hr PROTOCOL IV 10/11/24 11:00 11/10/24 10:59 Vitamin B Complex (Vitamin B-12) 1,000 mcg DAILY PO 10/15/24 21:00 11/14/24 20:59 10/17/24 08:20 1,000 MCG Diagnostics / Radiology: [COPY/PASTE HERE IF NO REPORTS PLEASE DELETE SECTION] Assessment: Concern for GI bleed Anemia, multifactorial CAD Plan: Will hold off on EGD at this time given stable hgb and no overt GI bleeding Continue plavix and aspirin Continue GI prophylaxis Advance diet as tolerated Avoid NSAIDs Antireflux measures Monitor H&H and transfuse as needed Call with questions, concerns or change in clinical status Patient to follow-up at clinic post discharge Thank you for this consult JAMIA AKBAR Oct 17, 2024 08:30
--- NOTE | 2024-10-17 08:32 | PN ---
CARDIOLOGY Reason for consult: NSTEMI HPI/story at presentation: This is a pleasant 79-year-old female with past medical history as below presents for chest discomfort. Patient was having mostly back pain and bilateral shoulder pain that was present yesterday morning and then subsequently, was in the ER for further evaluation and had significant elevated troponins therefore, cardiology was consulted for further evaluation and management Subjective: 10/06/2024 no active cardiac complaints 10/07/2024 no chest pain 10/08/2024 no further symptoms 10/09/2024 no complaints 10/10/2024 no complaints 10/11/2024 intubated 10/13/2024 no complaints 10/14/2024 no complaints 10/16/2024 doiarrhea 10/17/2024 no complaints Past medical history: See below Allergies, Meds See chart ros as noted on in HPI Vitals see chart PHYSICAL EXAMINATION GENERAL: intubated 10/11/2024 HEENT: Nonicteric sclerae, non traumatic HEART: Regular rate and rhythm with no murmurs LUNGS:intubated 10/11/2024 ABDOMEN: No acute issues, non tender GENITAL, RECTAL: deferred SKIN: No rash NEUROLOGIC: intubated 10/11/2024 EXTREMITIES: No edema ASSESSMENT NSTEMI,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 Plan for cardiac catheterization tomorrow to further evaluate coronaries Echo pending. risk-benefit discussed extensively and patient wants to proceed. 10/07/2024 Cardiac catheterization today for further evaluation of non-STEMI. Risk-benefit discussed. Primary team addressing possible scleroderma given issues with dysphagia. No active chest pain at this time echo with EF of 35- 40%, on metoprolol aspirin - add statin 10/08/2024 No active cardiac complaints at this time, no further issues with chest or back pain, awaiting final decision from CV surgery regarding surgery. Continue maximal medical therapy. 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 There is a question of GI bleeding with dark stools. Will get an occult blood and hold heparin for now. On atorvastatin beta-estefania and aspirin, continue. Hemoglobin stable. Carotid duplex was negative. Seen and examined 10/04/2024 at around 5 PM 10/09/2024 Was previously evaluated CV surgery, timing of surgery to be determined. On statin beta-estefania aspirin. Labs okay, occult blood has been ordered and is still pending. No further issues with dark stools per report. Currently off anticoagulation. Seen and examined 10/09/2024 at around 1730 10/10/2024 Had an episode of chest discomfort/upper back pain, managed conservatively at this time, heparin was not started. Troponins are trending down. Potential plans for surgery tomorrow. Patient however, thinks this might be related to spinal issues. Seen and examined 10/10/2024 at around 0900 10/11/2024 I was called in the late morning today by Dr. العراقي with concerns of ST elevations after surgery. Patient was taken emergently to cardiac catheterization and underwent intervention to the LAD. Patient had an occluded WILSON. Postprocedure, patient was doing well with hemodynamic stability and improvement in pressor requirements. Potential plans for extubation also noted. Seen and examined 10/11/2024 multiple times 10/12/2024 Extubated, blood pressures are doing okay off pressors. Currently, plan is to get off the balloon pump and then reevaluate. On antiplatelet therapy, s/p PCI to the LAD yesterday in the setting of NSTEMI. Bypass. Recovering well. Family at bedside, questions answered. Plan to switch amiodarone to p.o., agree with stopping lidocaine. Anemia will need to be addressed, transfuse as needed. Seen and examined 10/12/2024 at around 1700 10/13/2024 Doing well, hemodynamic stable, not any pressors, had issues with hematoma from the balloon pump yesterday and did receive 1 unit of transfusion. Otherwise, doing well, states that she is on the left 24, not very ambulatory at this time. Asking to be able to get up hopefully, this can be accomplished tomorrow or day after once the left-sided sheath is out. Appreciate CV surgery, critical care. Currently on Plavix in spite of thrombocytopenia given recent PCI to the LAD. On Amio beta-estefania Lasix Plavix atorvastatin. No longer on lidocaine. Watch hemoglobin. Renal function slightly elevated as well but this is better than yesterday. 10/14/2024 Was on nitroglycerin during the mornings but blood pressures are now better off nitro. Otherwise, doing well. No active cardiac complaints at this time. Appreciate CV surgery. Critical care. Having issues with diarrhea, small, will need to be watched. Sheath to be removed later today hemoglobin being replaced oncology on board anemia. X-ray with improvement. Currently on metoprolol Lasix Plavix statin aspirin amiodarone from a cardiac standpoint. Seen and examined at around 10 AM 10/15/2024 Feeling better, no active cardiac complaints at this time. Art line has been removed. Sitting by the side of the bed today. Still feeling tired but improving. Physical therapy on board. Getting blood hematology on board, seen and examined 10/15/2024 at around 1130AM 10/16/2024 Continuing to have issues with diarrhea and headaches. Currently on the floor. Pressure primary team. Ambulating more, awaiting eventual placement and therapy/rehab. Currently on metoprolol, Lasix, Plavix statin and aspirin continue. Seen and examined 10/16/2024 at around 1800. 10/17/2024 Still having issues with diarrhea but patient was also getting docusate which is a likely contributing factor. GI currently on board to further evaluate for bleeding. Scan was negative except for right groin pseudo, will get an arterial duplex. Working with therapy. ATTESTATION I was involved substantially in the care of this patient Number and complexity of problems addressed: 1 acute illness taht is a threat to life or bodily function Amount and or complexity of data Review of prior external note(s) from each unique source: 2+ Ordering of each unique test : 0 Review of the result(s) of each unique test: 2+ Assessment requiring an independent historian(s): No Independent interpretation of test performed by another MD/QHCP/appropriate source (not separately reported) : No Discussion of management or test interpretation with external MD/QHCP/appropriate source (not separately reported) : yes, CVT surgery Risk status (cardiac, billing related): moderate Vitals/Labs Vital Signs Date Time Temp Pulse Resp B/P (MAP) Pulse Ox O2 Delivery O2 Flow Rate FiO2 10/17/24 08:23 97 Room Air* 0 21 10/17/24 08:05 97.7 74 18 127/61 Laboratory Tests 10/17/24 03:14 Medications Current Medications Morphine Sulfate 2 mg ONCE ONCE IVP Last administered on 10/05/24at 22:22; Start 10/05/24 at 22:30; Stop 10/05/24 at 22:31; Status DC Ketorolac Tromethamine 15 mg ONCE ONCE IV Last administered on 10/05/24at 23:34; Start 10/05/24 at 22:30; Stop 10/05/24 at 22:31; Status DC Nitroglycerin 0.4 mg AD PRN SL; Start 10/05/24 at 22:30; Stop 10/11/24 at 08:37; Status DC Aspirin 162 mg ONCE ONCE PO Last administered on 10/05/24at 23:32; Start 10/05/24 at 23:30; Stop 10/05/24 at 23:31; Status DC Aspirin 81 mg DAILY PO Last administered on 10/17/24at 08:20; Start 10/06/24 at 09:00; Stop 11/05/24 at 08:59 Nitroglycerin 0.5 inch Q8H TD Last administered on 10/10/24at 22:37; Start 10/05/24 at 23:30; Stop 10/11/24 at 08:37; Status DC Ondansetron HCl 4 mg Q6H PRN IV; Start 10/05/24 at 23:30; Stop 10/11/24 at 08:37; Status DC Heparin Sodium (Porcine) 5,000 unit BID SQ; Start 10/06/24 at 09:00; Stop 10/06/24 at 06:29; Status DC Pantoprazole Sodium 40 mg DAILY PO Last administered on 10/10/24at 09:00; Start 10/06/24 at 09:00; Stop 10/11/24 at 08:37; Status DC Acetaminophen 650 mg Q6H PRN PO Last administered on 10/10/24at 06:06; Start 10/05/24 at 23:30; Stop 10/14/24 at 09:10; Status DC Insulin Human Regular INSULIN SLIDING SCAL... ACHS SQ; Start 10/06/24 at 07:30; Stop 10/11/24 at 08:37; Status DC Potassium Chloride 100 ml @ 100 mls/hr AD PRN IV; Start 10/05/24 at 23:30; Stop 10/11/24 at 08:37; Status DC Potassium Chloride 20 meq AD PRN PO Last administered on 10/09/24at 21:00; Start 10/05/24 at 23:30; Stop 10/11/24 at 08:37; Status DC Potassium Chloride 20 meq AD PRN PO; Start 10/05/24 at 23:30; Stop 10/11/24 at 08:37; Status DC Magnesium Sulfate 50 ml @ 0 mls/hr PROTOCOL PRN IV; Start 10/05/24 at 23:30; Stop 10/11/24 at 08:37; Status DC Heparin Sodium (Porcine) *calculation based on ACTUAL B... AD PRN IV Last administered on 10/06/24at 07:19; Start 10/06/24 at 07:30; Stop 10/10/24 at 08:27; Status DC Heparin Sodium/ Dextrose 250 ml @ 0 mls/hr Q6H IV Last administered on 10/08/24at 14:20; Start 10/06/24 at 07:30; Stop 10/10/24 at 08:17; Status DC Atorvastatin Calcium 40 mg ONCE ONCE PO Last administered on 10/06/24at 21:22; Start 10/06/24 at 21:30; Stop 10/06/24 at 21:31; Status DC Clopidogrel Bisulfate 75 mg ONCE ONCE PO Last administered on 10/06/24at 21:22; Start 10/06/24 at 21:30; Stop 10/06/24 at 21:31; Status DC Metoprolol Tartrate 12.5 mg BID PO Last administered on 10/11/24at 06:32; Start 10/07/24 at 09:00; Stop 10/11/24 at 08:37; Status DC Sodium Chloride 500 ml @ 0 mls/hr Q0M IV; Start 10/06/24 at 21:30; Stop 10/11/24 at 08:37; Status DC Lidocaine HCl 20 ml STK-MED ONCE .ROUTE; Start 10/07/24 at 16:23; Stop 10/07/24 at 16:23; Status DC Iohexol 75 ml STK-MED ONCE IV; Start 10/07/24 at 16:23; Stop 10/07/24 at 16:23; Status DC Heparin Sodium (Porcine) 10,000 unit STK-MED ONCE .ROUTE; Start 10/07/24 at 16:23; Stop 10/07/24 at 16:23; Status DC Heparin Sodium/ Sodium Chloride 1,000 ml @ As Directed STK-MED ONCE IV; Start 10/07/24 at 16:23; Stop 10/07/24 at 16:23; Status DC Nitroglycerin 50 mg STK-MED ONCE .ROUTE; Start 10/07/24 at 16:23; Stop 10/07/24 at 16:23; Status DC Fentanyl Citrate 100 mcg STK-MED ONCE .ROUTE; Start 10/07/24 at 16:24; Stop 10/07/24 at 16:24; Status DC Midazolam HCl 2 mg STK-MED ONCE .ROUTE; Start 10/07/24 at 16:24; Stop 10/07/24 at 16:24; Status DC Nicardipine HCl 25 mg STK-MED ONCE IV; Start 10/07/24 at 16:24; Stop 10/07/24 at 16:24; Status DC Sodium Chloride 10 ml Q8H IVP Last administered on 10/17/24at 08:21; Start 10/07/24 at 17:30; Stop 11/06/24 at 17:29 Pharmacy Profile Note 1 each ONCE MISC Last administered on 10/07/24at 23:37; Start 10/07/24 at 17:30; Stop 10/08/24 at 07:12; Status DC Atorvastatin Calcium 20 mg HS PO Last administered on 10/10/24at 20:55; Start 10/08/24 at 21:00; Stop 10/11/24 at 08:37; Status DC Levothyroxine Sodium 100 mcg SYN PO Last administered on 10/17/24at 06:12; Start 10/09/24 at 06:30; Stop 11/08/24 at 06:29 Heparin Sodium/ Dextrose 250 ml @ 0 mls/hr Q6H IV; Start 10/10/24 at 09:00; Stop 10/10/24 at 08:26; Status DC Cefazolin Sodium 2 gm ONCALL PRN IVP; Start 10/10/24 at 12:00; Stop 10/12/24 at 11:59; Status DC Tramadol HCl 25 mg Q6H PRN PO Last administered on 10/10/24at 16:13; Start 10/10/24 at 14:30; Stop 10/11/24 at 08:37; Status DC Cyclobenzaprine HCl 5 mg TID PRN PO; Start 10/10/24 at 14:30; Stop 10/11/24 at 08:37; Status DC Epinephrine HCl 10 mg/Sodium Chloride 250 ml @ 0 mls/hr AD PRN IV; Start 10/11/24 at 07:00; Stop 10/11/24 at 09:01; Status DC Norepinephrine Bitartrate 250 ml @ 0 mls/hr AD PRN IV; Start 10/11/24 at 07:00; Stop 10/11/24 at 09:03; Status DC Aminocaproic Acid 46483 mg/Sodium Chloride 480 ml @ 0 mls/hr AD PRN IV; Start 10/11/24 at 07:00; Stop 11/10/24 at 06:59 Cefazolin Sodium 1 gm STK-MED ONCE .ROUTE; Start 10/11/24 at 06:50; Stop 10/11/24 at 06:51; Status DC Heparin Sodium/ Sodium Chloride 500 ml @ As Directed STK-MED ONCE IV; Start 10/11/24 at 06:51; Stop 10/11/24 at 06:51; Status DC Papaverine HCl 60 mg STK-MED ONCE .ROUTE; Start 10/11/24 at 06:51; Stop 10/11/24 at 06:51; Status DC Cefazolin Sodium 2 gm STK-MED ONCE .ROUTE; Start 10/11/24 at 06:53; Stop 10/11/24 at 06:54; Status DC Sodium Chloride 1,000 ml @ As Directed STK-MED ONCE IV; Start 10/11/24 at 06:53; Stop 10/11/24 at 06:54; Status DC Protamine Sulfate 250 mg STK-MED ONCE IV; Start 10/11/24 at 07:56; Stop 10/11/24 at 07:56; Status DC Lidocaine HCl 100 mg STK-MED ONCE .ROUTE; Start 10/11/24 at 07:56; Stop 10/11/24 at 07:56; Status DC Heparin Sodium (Porcine) 10,000 unit STK-MED ONCE .ROUTE; Start 10/11/24 at 07:56; Stop 10/11/24 at 07:56; Status DC Epinephrine HCl 1 mg STK-MED ONCE .ROUTE; Start 10/11/24 at 07:56; Stop 10/11/24 at 07:56; Status DC Sodium Bicarbonate 200 ml @ As Directed STK-MED ONCE .ROUTE; Start 10/11/24 at 07:56; Stop 10/11/24 at 07:56; Status DC Norepinephrine Bitartrate 4 mg STK-MED ONCE IV; Start 10/11/24 at 07:56; Stop 10/11/24 at 07:56; Status DC Fentanyl Citrate 1,000 mcg STK-MED ONCE IJ; Start 10/11/24 at 07:56; Stop 10/11/24 at 07:57; Status DC Propofol 200 mg STK-MED ONCE IV; Start 10/11/24 at 07:57; Stop 10/11/24 at 07:57; Status DC Midazolam HCl 2 mg STK-MED ONCE .ROUTE; Start 10/11/24 at 07:57; Stop 10/11/24 at 07:57; Status DC Rocuronium Eunice 50 mg STK-MED ONCE .ROUTE; Start 10/11/24 at 07:57; Stop 10/11/24 at 07:57; Status DC Ketamine HCl 50 mg STK-MED ONCE .ROUTE; Start 10/11/24 at 07:57; Stop 10/11/24 at 07:58; Status DC Nitroglycerin/ Dextrose 1 ml @ As Directed STK-MED ONCE .ROUTE; Start 10/11/24 at 08:27; Stop 10/11/24 at 08:27; Status DC Atorvastatin Calcium 40 mg HS PO Last administered on 10/13/24at 20:32; Start 10/11/24 at 21:00; Stop 10/14/24 at 09:11; Status DC Acetaminophen 1,000 mg Q6H6 IV Last administered on 10/12/24at 05:06; Start 10/11/24 at 12:00; Stop 10/12/24 at 11:59; Status DC Aspirin 81 mg ONCE ONCE NG; Start 10/11/24 at 12:00; Stop 10/11/24 at 08:42; Status DC Docusate Sodium 100 mg BID PO Last administered on 10/16/24at 09:01; Start 10/12/24 at 09:00; Stop 11/11/24 at 08:59 Lactulose 20 gm BID PRN PO; Start 10/11/24 at 09:00; Stop 11/10/24 at 08:59 Furosemide 20 mg Q12H PO Last administered on 10/17/24at 08:18; Start 10/13/24 at 09:00; Stop 11/12/24 at 08:59 Furosemide 20 mg Q12H IV Last administered on 10/12/24at 21:18; Start 10/12/24 at 09:00; Stop 10/13/24 at 08:59; Status DC Enoxaparin Sodium 30 mg DAILY SQ; Start 10/14/24 at 09:00; Stop 10/11/24 at 14:00; Status DC Metoprolol Tartrate 12.5 mg BID PO Last administered on 10/17/24at 08:19; Start 10/13/24 at 09:00; Stop 11/12/24 at 08:59 Magnesium Hydroxide 30 ml DAILY PRN PO; Start 10/11/24 at 09:00; Stop 11/10/24 at 08:59 Dexmedetomidine/ Sodium Chloride 400 mcg PROTOCOL IV; Start 10/11/24 at 09:00; Stop 10/12/24 at 08:59; Status DC Acetaminophen 650 mg Q6H PRN PO Last administered on 10/16/24at 10:48; Start 10/11/24 at 09:00; Stop 11/10/24 at 08:59 Sodium Chloride 1,000 ml @ 10 mls/hr ONCE IV; Start 10/11/24 at 09:00; Stop 10/11/24 at 08:52; Status DC Sodium Chloride 10 ml Q8H PRN IVP; Start 10/11/24 at 09:00; Stop 11/10/24 at 08:59 Morphine Sulfate 0.5 mg Q2H PRN IV; Start 10/11/24 at 09:00; Stop 10/12/24 at 08:59; Status DC Morphine Sulfate 1 mg Q2H PRN IV; Start 10/11/24 at 09:00; Stop 10/16/24 at 11:59; Status DC Acetaminophen 650 mg Q4H PRN RC; Start 10/11/24 at 09:00; Stop 11/10/24 at 08:59 Ondansetron HCl 4 mg Q6H PRN IV Last administered on 10/13/24at 08:20; Start 10/11/24 at 09:00; Stop 11/10/24 at 08:59 Sodium Chloride 500 ml @ 0 mls/hr AD IV; Start 10/11/24 at 09:00; Stop 11/10/24 at 08:59 Nitroglycerin/ Dextrose 0 ml @ 0 mls/hr AD IV Last administered on 10/11/24at 12:00; Start 10/11/24 at 09:00; Stop 10/14/24 at 08:59; Status DC Propofol 100 ml @ 0 mls/hr AD PRN IV; Start 10/11/24 at 09:00; Stop 10/15/24 at 08:59; Status DC Norepinephrine Bitartrate 250 ml @ 0 mls/hr AD PRN IV Last administered on 10/12/24at 08:08; Start 10/11/24 at 09:00; Stop 11/10/24 at 08:59 Epinephrine HCl 10 mg/Sodium Chloride 250 ml @ 7.716 mls/ hr AD PRN IV; Start 10/11/24 at 09:00; Stop 10/16/24 at 08:59; Status DC Aminocaproic Acid 70200 mg/Sodium Chloride 310 ml @ 25 mls/hr AD IV; Start 10/11/24 at 09:00; Stop 10/11/24 at 08:54; Status DC Calcium Gluconate 1 gm/Sodium Chloride 60 ml @ 200 mls/hr AD PRN IV Last administered on 10/13/24at 17:20; Start 10/11/24 at 09:00; Stop 11/10/24 at 08:59 Magnesium Sulfate 50 ml @ 12.5 mls/hr AD PRN IV Last administered on 10/12/24at 23:52; Start 10/11/24 at 09:00; Stop 11/10/24 at 08:59 Potassium Chloride 100 ml @ 100 mls/hr AD PRN IV Last administered on 10/16/24at 09:02; Start 10/11/24 at 09:00; Stop 11/10/24 at 08:59 Potassium Phosphate 250 ml @ 42 mls/hr AD PRN IV; Start 10/11/24 at 09:00; Stop 11/10/24 at 08:59 Albumin Human 250 ml @ 0 mls/hr AD PRN IV Last administered on 10/11/24at 23:20; Start 10/11/24 at 09:00; Stop 10/11/24 at 23:20; Status DC Acetaminophen 650 mg Q4H PRN PO; Start 10/11/24 at 09:00; Stop 11/10/24 at 08:59 Insulin Human Regular 100 unit/ Sodium Chloride 100 ml @ 0 mls/hr AD IV Last administered on 10/11/24at 23:19; Start 10/11/24 at 09:00; Stop 10/13/24 at 08:59; Status DC Cefazolin Sodium 2 gm Q8H IVPB Last administered on 10/12/24at 06:21; Start 10/11/24 at 14:00; Stop 10/12/24 at 06:01; Status DC Tramadol HCl 25 mg Q6H PRN PO; Start 10/11/24 at 09:00; Stop 10/16/24 at 08:59; Status DC Tramadol HCl 50 mg Q6H PRN PO Last administered on 10/14/24at 08:29; Start 10/11/24 at 09:00; Stop 10/16/24 at 08:59; Status DC Famotidine 20 mg BID IV; Start 10/11/24 at 09:00; Stop 10/11/24 at 09:03; Status DC Sodium Bicarbonate 50 meq AD PRN IV Last administered on 10/11/24at 18:14; Start 10/11/24 at 09:00; Stop 10/14/24 at 08:59; Status DC Dextrose 50 ml AD PRN IV; Start 10/11/24 at 09:00; Stop 10/13/24 at 07:52; Status DC Glucagon 1 mg AD PRN IM; Start 10/11/24 at 09:00; Stop 10/13/24 at 07:52; Status DC Sodium Chloride 1,000 ml @ 10 mls/hr ONCE ONCE IV Last administered on 10/11/24at 10:30; Start 10/11/24 at 09:00; Stop 10/14/24 at 09:10; Status DC Famotidine 20 mg Q24H IV Last administered on 10/17/24at 08:21; Start 10/11/24 at 09:30; Stop 11/10/24 at 08:59 Vasopressin 20 units STK-MED ONCE .ROUTE; Start 10/11/24 at 09:42; Stop 10/11/24 at 09:42; Status DC Ephedrine Sulfate 50 mg STK-MED ONCE .ROUTE; Start 10/11/24 at 09:42; Stop 10/11/24 at 09:43; Status DC Protamine Sulfate 250 mg STK-MED ONCE IV; Start 10/11/24 at 09:54; Stop 10/11/24 at 09:54; Status DC Protamine Sulfate 50 mg STK-MED ONCE .ROUTE; Start 10/11/24 at 09:54; Stop 10/11/24 at 09:54; Status DC Heparin Sodium (Porcine) 10,000 unit STK-MED ONCE .ROUTE; Start 10/11/24 at 09:54; Stop 10/11/24 at 09:54; Status DC Vasopressin 40 units/Sodium Chloride 40 ml @ 0 mls/hr PROTOCOL IV; Start 10/11/24 at 11:00; Stop 11/10/24 at 10:59 Lidocaine HCl/ Dextrose 250 ml @ 0 mls/hr AD PRN IV Last administered on 10/12/24at 14:44; Start 10/11/24 at 11:00; Stop 10/12/24 at 19:18; Status DC Lidocaine HCl/ Dextrose 250 ml @ As Directed STK-MED ONCE IV; Start 10/11/24 at 10:57; Stop 10/11/24 at 10:57; Status DC Amiodarone HCl 150 mg/Dextrose 103 ml @ 618 mls/hr ONCE IV Last administered on 10/11/24at 11:57; Start 10/11/24 at 12:00; Stop 10/11/24 at 12:09; Status DC Amiodarone HCl 360 mg/Dextrose 207.2 ml @ 33.3 mls/hr AD IV Last administered on 10/11/24at 12:04; Start 10/11/24 at 12:00; Stop 10/12/24 at 19:18; Status DC Amiodarone HCl 540 mg/Dextrose 310.8 ml @ 16.7 mls/hr [id number] IV Last administered on 10/11/24at 18:20; Start 10/11/24 at 12:00; Stop 11/10/24 at 11:59 Atropine Sulfate 1 mg STK-MED ONCE IVP; Start 10/11/24 at 12:42; Stop 10/11/24 at 12:42; Status DC Iohexol 35,000 mg STK-MED ONCE IV; Start 10/11/24 at 12:42; Stop 10/11/24 at 12:42; Status DC Heparin Sodium (Porcine) 10,000 unit STK-MED ONCE .ROUTE; Start 10/11/24 at 12:42; Stop 10/11/24 at 12:42; Status DC Heparin Sodium/ Sodium Chloride 1,000 ml @ As Directed STK-MED ONCE IV; Start 10/11/24 at 12:42; Stop 10/11/24 at 12:43; Status DC Nitroglycerin 50 mg STK-MED ONCE .ROUTE; Start 10/11/24 at 12:42; Stop 10/11/24 at 12:43; Status DC Lidocaine HCl 20 ml STK-MED ONCE .ROUTE; Start 10/11/24 at 12:43; Stop 10/11/24 at 12:43; Status DC Bivalirudin 250 mg STK-MED ONCE IV; Start 10/11/24 at 13:27; Stop 10/11/24 at 13:27; Status DC Iohexol 35,000 mg STK-MED ONCE IV; Start 10/11/24 at 13:34; Stop 10/11/24 at 13:34; Status DC Clopidogrel Bisulfate 300 mg STK-MED ONCE .ROUTE; Start 10/11/24 at 13:45; Stop 10/11/24 at 13:47; Status DC Clopidogrel Bisulfate 75 mg DAILY PO Last administered on 10/17/24at 08:20; Start 10/12/24 at 09:00; Stop 11/11/24 at 08:59 Heparin Sodium/ Dextrose 250 ml @ 0 mls/hr PROTOCOL IV Last administered on 10/11/24at 16:14; Start 10/11/24 at 16:00; Stop 10/12/24 at 19:18; Status DC Dextrose 50 ml AD PRN IV; Start 10/11/24 at 15:00; Stop 11/10/24 at 14:59 Glucagon 1 mg AD PRN IM; Start 10/11/24 at 15:00; Stop 11/10/24 at 14:59 Heparin Sodium/ Dextrose 250 ml @ 0 mls/hr PROTOCOL IV; Start 10/11/24 at 16:00; Stop 10/11/24 at 15:24; Status DC Cefazolin Sodium 2 gm STK-MED ONCE IVPB Last administered on 10/11/24at 08:30; Start 10/11/24 at 08:30; Stop 10/11/24 at 20:01; Status DC Cefazolin Sodium 1 gm STK-MED ONCE IRRIG Last administered on 10/11/24at 09:00; Start 10/11/24 at 09:00; Stop 10/11/24 at 20:01; Status DC Papaverine HCl 60 mg STK-MED ONCE IRRIG Last administered on 10/11/24at 09:00; Start 10/11/24 at 09:00; Stop 10/11/24 at 20:01; Status DC Heparin Sodium (Porcine) 5,000 unit STK-MED ONCE IRRIG Last administered on 10/11/24at 09:00; Start 10/11/24 at 09:00; Stop 10/11/24 at 20:01; Status DC Furosemide 20 mg ONCE ONCE IV; Start 10/12/24 at 02:30; Stop 10/12/24 at 02:31; Status DC Furosemide 20 mg STK-MED ONCE .ROUTE Last administered on 10/12/24at 02:20; Start 10/12/24 at 02:16; Stop 10/12/24 at 02:17; Status DC Albumin Human 250 ml @ As Directed STK-MED ONCE IV Last administered on 10/12/24at 21:19; Start 10/12/24 at 17:49; Stop 10/12/24 at 17:50; Status DC Amiodarone HCl 200 mg DAILY PO Last administered on 10/17/24at 08:20; Start 10/13/24 at 09:00; Stop 11/12/24 at 08:59 Insulin Human Regular INSULIN SLIDING SCAL... ACHS SQ; Start 10/13/24 at 11:30; Stop 11/12/24 at 11:29 Potassium Chloride 20 meq AD PRN PO Last administered on 10/17/24at 08:23; Start 10/14/24 at 09:00; Stop 11/13/24 at 08:59 Atorvastatin Calcium 40 mg HS PO Last administered on 10/16/24at 20:36; Start 10/14/24 at 21:00; Stop 11/10/24 at 20:59 Iron Sucrose 200 mg ONCE ONCE IV; Start 10/17/24 at 18:00; Stop 10/14/24 at 18:16; Status DC Folic Acid 1 mg DAILY PO Last administered on 10/17/24at 08:18; Start 10/15/24 at 21:00; Stop 11/14/24 at 20:59 Vitamin B Complex 1,000 mcg DAILY PO Last administered on 10/17/24at 08:20; Start 10/15/24 at 21:00; Stop 11/14/24 at 20:59 Iron Sucrose 200 mg AD IV; Start 10/14/24 at 18:30; Stop 10/14/24 at 18:34; Status DC Iron Sucrose 200 mg Q24H IV Last administered on 10/16/24at 18:32; Start 10/14/24 at 19:00; Stop 10/16/24 at 19:01; Status DC Furosemide 20 mg ONCE ONCE IV; Start 10/16/24 at 12:00; Stop 10/16/24 at 12:01; Status DC GUANACO ORELLANA MD Oct 17, 2024 08:32
[2024-10-17] MEDS ORDERED: doCUSate SODIUM 100 MG CAP PO PRN (11:00)
--- NOTE | 2024-10-17 12:54 | HP ---
PREOPERATIVE EVALUATION A 79-year-old lady with 3-vessel coronary artery disease and depressed ventricular function, referred for surgical revascularization. I have had the opportunity to review the films, examine the patient and discussed the case with Dr. Rodrigues. We both agreed, surgery is indicated and we have recommended it. The patient and family understand the indications for surgery as well as the associated morbidity and mortality of the procedure as it relates to her own comorbidities and wishes to proceed with surgery. TID: [id number] RECEIPT: [id number]
--- NOTE | 2024-10-17 12:54 | PN ---
[facility] PROGRESS NOTE Date of Service: Oct 17, 2024 Time of Service: 12:39 SUBJECTIVE: Ms. Mac is a 79-year-old female that was seen and examined today on 10/05/2024. Patient is a good historian and personal health. Patient states that she came to the emergency department with a chief complaint of bilateral chest wall pain closer to the axilla and pain also radiates to the back. Onset was 9:30 a.m.. Character is described as throbbing. Symptoms are aggravated with palpation and movement. Symptoms are not alleviated with a chiropractic adjustment in fact symptoms became worse after a chiropractic adjustment. There was no alleviating factors Duration of pain is on and off. Patient denies any associated shortness of breath, nausea, vomiting, headache, dizziness. Today in the emergency department CBC unremarkable, troponin 378 (high sensitivity), creatinine 1.1, glucose 208 mg/dL, GFR 51, no urinalysis has been collected or sent to lab. Emergency room initial impression and EKG is that there is new T-wave inversions signifying a change from previous EKGs one week ago at a prior emergency room visit. For this reason emergency room physician recommended patient be admitted with a diagnosis of chest pain. 10/06/24 patient was seen and examined in the ER. She reports that she was doing much better. She denies any chest pain. And she tells me that she came in because she had back pain radiating to bilateral shoulders. She does go to chiropractor to get this resolved but this time it was more persistent 10/07/2024 - patient is seen at bedside in the room ER 5. Patient denies any active chest pain, shortness of breath, nausea, vomiting. 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 Patient feels anxious about the upcoming construction laborer procedure and question regarding the procedures, all questions were answered. Patient informed about her extremities getting cold and color change to purplish red and about her joint problems and trouble of food getting stuck in the esophagus after swallowing , immunology workup is planned to rule out limited scleroderma . Patient is hemodynamically stable with temperature 98.6, pulse 77, respiratory rate 17, blood pressure 146/77, pulse oximetry 99% on room air. Patient's labs shows WBC 10.4, hemoglobin 13.5, chemistries show sodium 141, potassium 4.3, creatinine 0.8, BUN 14. Patient is currently on metoprolol, pantoprazole, aspirin, heparin, nitroglycerin. Patient will be followed cl osely, we will follow Cardiology recommendations. 10/08/2024 - patient is seen in room 201, patient denies any symptoms, patient was taken to the construction laborer yesterday in the results are as follows SELECTIVE CORONARY ANGIOGRAPHY: 1. Left main: The left main bifurcates into the left anterior descending and circumflex coronary artery. Distal Left main with 50% stenosis 2. Left anterior descending: The left anterior descending coronary artery gives rise to diagonal(s) and terminates as the apical recurrent branch. Prox LAD with 90% disease 3. Circumflex: The circumflex coronary artery is noted to provide obtuse marginal(s). Prox Cx with 95% disease 4. Right coronary artery: The right coronary artery is dominant and gives PDA and NIKITA. Prox RCA with 50% disease 5. Left ventricular end-diastolic pressure is elevated. There was no gradient noted upon pullback. Cardiothoracic surgeon is consulted and Dr. Gregg has ordered an ultrasound carotid has a preoperative procedure. patient will be continued on medical management until the surgery . Patient is currently hemodynamically stable with temperature 98.2, pulse 81, blood pressure 122/80, respiratory rate 18, saturating at 94% on room air. Patient's labs shows WBC 10.7, hemoglobin 11.9 and chemistries show sodium 142, potassium 3.7, creatinine 0.7. Awaiting further instructions from cardio thoracic surgeon. 10/17/24 Patient was seen and examined at bedside. She feels better but complains of generalized weakness. She is working with PT at the time of evaluation. Pending bleeding scan today and GI recommendations for discharge. REVIEW OF SYSTEMS CONSTITUTIONAL: Denies fevers, chills, or night sweats. No unintentional weight loss reported. NEUROLOGICAL: Denies headache, amaurosis fugax, motor weakness, sensory deficit, vertigo/spinning sensation, gait abnormalities, or tremors. ENT: No hearing loss, otalgia, otorrhea, rhinitis, rhinorrhea, hoarseness, or sore throat. CARDIOVASCULAR: Denies any exertional angina, dyspnea on exertion, orthopnea, paroxysmal nocturnal dyspnea, palpitations, life-threatening arrhythmias, claudication. PULMONARY: Denies any shortness of breath, cough, phlegm/sputum, hemoptysis, pleuritic chest pain. SLEEP: Denies morning headaches, daytime somnolence or napping. Denies difficulty falling asleep, staying asleep, waking from sleep. Denies knowledge of snoring. GASTROINTESTINAL: Denies any type of dysphagia to either liquids or solids. Denies nausea, vomiting, pyrosis, early satiety, abdominal pain, diarrhea, constipation, or changes in stool consistency or caliber. Denies coffee-ground e mesis, hematemesis, hematochezia, or melanotic stools. GENITOURINARY: Denies frequency, urgency, nocturia, hematuria or incontinence (Storage/Irritative symptoms.) Low urinary stream, straining to void, urinary intermittency or hesitancy, splitting of the voiding stream, terminal dribbling. ENDOCRINOLOGIC: Denies polyuria, polydipsia, polyphagia or heat/cold intolerances. HEMATOLOGIC: Denies thrombophilia/previous clots, or coagulopathy/bleeding disorders. ONCOLOGIC: Denies personal history of malignancy. DERMATOLOGIC: Denies rashes or pruritus. PSYCHIATRIC: Denies any suicidal or homicidal ideation. Denies hallucinations. PHYSICAL EXAM GENERAL APPEARANCE: The patient is awake, alert, and oriented, in no acute cardiopulmonary distress. NEUROLOGICAL: Cranial nerves II-XII grossly intact. Motor is 5/5 in bilateral upper and lower extremities proximal to distal. No sensory deficits. HEENT: Face is symmetric. Pupils are equal and reactive. Extraocular movements are intact. NECK: Supple. No JVD. No thyromegaly. No submental, submandibular, pre-/posta uricular, occipital or supraclavicular lymphadenopathy. CHEST: Normal chest expansion. No Telemetry. LUNGS: Absence of any rales, rhonchi or any wheezing. CARDIOVASCULAR: Regular. S1 and S2 normal. No appreciable rubs, murmurs or gallops. ABDOMEN: Soft, nontender, and nondistended. There is no rebound, voluntary guarding, or rigidity. : Deferred. No Rosa. EXTREMITIES: Non-edematous and not cyanotic. No clubbing. Good capillary refill. SKIN: No skin breakdown. Vital Signs (last 8hr) Date Time Temp Pulse Resp B/P (MAP) Pulse Ox O2 Delivery O2 Flow Rate FiO2 2/20/25 12:06 97.9 71 18 118/65 97 Room Air 10/17/24 08:23 96 Room Air* 0 21 10/17/24 08:05 97.7 74 18 127/61 96 Room Air LABS: Laboratory: Test 10/17/24 05:12 10/17/24 03:14 10/16/24 04:02 10/15/24 21:05 Range/Units Whole Blood Glucose 91 70-110 MG/DL White Blood Count 15.0 H 4.8-10.8 K/uL Red Blood Count 3.57 #L 4.00-5.50 MIL/uL Hemoglobin 10.5 #L 12.0-16.0 g/dL Hematocrit 32.1 #L 36-48 % Mean Corpuscular Volume 89.9 79-99 fL Mean Corpuscular Hemoglobin 29.4 27.0-33.0 pg Mean Corpuscular Hemoglobin Concent 32.7 32.0-36.0 g/dL Red Cell Distribution Width 15.9 H 11.0-15.5 % Platelet Count 193 130-400 K/uL Mean Platelet Volume 10.8 H 7.5-10.5 fL Nucleated Red Blood Cells 1.4 H 0.0-0.19 % Sodium Level 142 136-145 mmol/L Potassium Level 3.3 L 3.5-5.1 mmol/L Chloride Level 107 101-111 mmol/L Carbon Dioxide Level 28 21-32 mmol/L Blood Urea Nitrogen 22 H 7-18 mg/dL Creatinine 0.6 0.5-1.0 mg/dL Glomerular Filtration Rate Calc 91 >90 mL/min Random Glucose 93 70-105 mg/dL Total Calcium 7.4 L 8.5-10.1 mg/dL Magnesium Level 1.90 1.80-2.40 mg/dL Prothrombin Time 10.9 9.6-11.6 SEC Prothromb Time International Ratio 0.97 0.85-1.15 Activated Partial Thromboplast Time 29.1 26.3-35.5 SEC Current Medications Medications (Trade) Dose Ordered Sig/Rashad Route PRN Reason Start Time Stop Time Status Last Admin Dose Admin Acetaminophen (TYLenol 325MG TAB) 650 mg Q4H PRN PO Temp >38.3C(AFTER EXTUBATION) 10/11/24 09:00 11/10/24 08:59 Acetaminophen (TYLenol 325MG TAB) 650 mg Q6H PRN PO MILD PAIN (1-3) 10/11/24 09:00 11/10/24 08:59 10/16/24 10:48 650 MG Acetaminophen (TYLenol 325MG TAB) 650 mg Q6H PRN PO TEMPERATURE GREATER THAN 101.5 10/05/24 23:30 10/14/24 09:10 DC 10/10/24 06:06 650 MG Acetaminophen (TYLenol 650MG SUPPOSITORY) 650 mg Q4H PRN RC Temp >38.3C WHILE INTUBATED 10/11/24 09:00 11/10/24 08:59 Acetaminophen (acetaMINOPHEN) 1,000 mg Q6H6 IV 10/11/24 12:00 10/12/24 11:59 DC 10/12/24 05:06 1,000 MG Albumin Human 250 ml @ 0 mls/hr AD PRN IV IF HEMODYNAMICALLY UNSTABLE 10/11/24 09:00 10/11/24 23:20 DC 10/11/24 23:20 250 MLS/HR Aminocaproic Acid 78411 mg/Sodium Chloride 310 ml @ 25 mls/hr AD IV 10/11/24 09:00 10/11/24 08:54 DC Aminocaproic Acid 67849 mg/Sodium Chloride 480 ml @ 0 mls/hr AD PRN IV BLEEDING CONTROL 10/11/24 07:00 11/10/24 06:59 Amiodarone HCl (pacERONE 200MG) 200 mg DAILY PO 10/13/24 09:00 11/12/24 08:59 10/17/24 08:20 200 MG Amiodarone HCl 150 mg/Dextrose 103 ml @ 618 mls/hr ONCE IV 10/11/24 12:00 10/11/24 12:09 DC 10/11/24 11:57 618 MLS/HR Amiodarone HCl 360 mg/Dextrose 207.2 ml @ 33.3 mls/hr AD IV 10/11/24 12:00 10/12/24 19:18 DC 10/11/24 12:04 33.3 MLS/HR Amiodarone HCl 540 mg/Dextrose 310.8 ml @ 16.7 mls/hr [id number] IV 10/11/24 12:00 11/10/24 11:59 10/11/24 18:20 16.7 MLS/HR Aspirin (Aspirin 81mg Chew Tab) 81 mg DAILY PO 10/06/24 09:00 11/05/24 08:59 10/17/24 08:20 81 MG Atorvastatin Calcium (LIPItor 20MG) 20 mg HS PO 10/08/24 21:00 10/11/24 08:37 DC 10/10/24 20:55 20 MG Atorvastatin Calcium (LIPItor 20MG) 40 mg HS PO 10/11/24 21:00 10/14/24 09:11 DC 10/13/24 20:32 40 MG Atorvastatin Calcium (LIPItor 40MG) 40 mg HS PO 10/14/24 21:00 11/10/24 20:59 10/16/24 20:36 40 MG Calcium Gluconate 1 gm/Sodium Chloride 60 ml @ 200 mls/hr AD PRN IV HYPOCALCEMIA 10/11/24 09:00 11/10/24 08:59 10/13/24 17:20 200 MLS/HR Cefazolin Sodium (Ancef) 2 gm ONCALL PRN IVP SURGERY 10/10/24 12:00 10/12/24 11:59 DC Cefazolin Sodium (Ancef) 2 gm Q8H IVPB 10/11/24 14:00 10/12/24 06:01 DC 10/12/24 06:21 2 GM Clopidogrel Bisulfate (plaVIX 75MG) 75 mg DAILY PO 10/12/24 09:00 11/11/24 08:59 10/17/24 08:20 75 MG Cyclobenzaprine HCl (Cyclobenzaprine HCl) 5 mg TID PRN PO MUSCLE SPASMS 10/10/24 14:30 10/11/24 08:37 DC Dexmedetomidine/ Sodium Chloride (PRECEdex 400MCG/ 100ML-NS) 400 mcg PROTOCOL IV 10/11/24 09:00 10/12/24 08:59 DC Dextrose (D50w) 50 ml AD PRN IV HYPOGLYCEMIA PROTOCOL 10/11/24 09:00 10/13/24 07:52 DC Dextrose (D50w) 50 ml AD PRN IV HYPOGLYCEMIA PROTOCOL 10/11/24 15:00 11/10/24 14:59 Docusate Sodium (COLace 100MG CAP) 100 mg BID PO 10/12/24 09:00 10/17/24 10:46 DC 10/16/24 09:01 100 MG Docusate Sodium (COLace 100MG CAP) 100 mg BID PRN PO CONSTIPATION 10/17/24 11:00 11/11/24 08:59 Enoxaparin Sodium (Lovenox) 30 mg DAILY SQ 10/14/24 09:00 10/11/24 14:00 DC Epinephrine HCl 10 mg/Sodium Chloride 250 ml @ 7.716 mls/ hr AD PRN IV POST-OP CARDIOVASCULAR ORDERS 10/11/24 09:00 10/16/24 08:59 DC Epinephrine HCl 10 mg/Sodium Chloride 250 ml @ 0 mls/hr AD PRN IV TITRATE 10/11/24 07:00 10/11/24 09:01 DC Famotidine (Pepcid 20mg Vial) 20 mg BID IV 10/11/24 09:00 10/11/24 09:03 DC Famotidine (Pepcid 20mg Vial) 20 mg Q24H IV 10/11/24 09:30 11/10/24 08:59 10/17/24 08:21 20 MG Folic Acid (FOLic ACID 1 MG TABLET) 1 mg DAILY PO 10/15/24 21:00 11/14/24 20:59 10/17/24 08:18 1 MG Furosemide (LASix 20MG TAB) 20 mg Q12H PO 10/13/24 09:00 11/12/24 08:59 10/17/24 08:18 20 MG Furosemide (LASix 20MG VIAL) 20 mg Q12H IV 10/12/24 09:00 10/13/24 08:59 DC 10/12/24 21:18 20 MG Glucagon (Glucagon 1mg Kit) 1 mg AD PRN IM HYPOGLYCEMIA PROTOCOL 10/11/24 09:00 10/13/24 07:52 DC Glucagon (Glucagon 1mg Kit) 1 mg AD PRN IM HYPOGLYCEMIA PROTOCOL 10/11/24 15:00 11/10/24 14:59 Heparin Sodium (Porcine) (HEParin 5,000 UNIT VIAL) *calculation based on ACTUAL B... AD PRN IV HEPARIN PROTOCOL 10/06/24 07:30 10/10/24 08:27 DC 10/06/24 07:19 3,877.5 UNIT Heparin Sodium (Porcine) (HEParin 5,000 UNIT VIAL) 5,000 unit BID SQ 10/06/24 09:00 10/06/24 06:29 DC Heparin Sodium/ Dextrose 250 ml @ 0 mls/hr PROTOCOL IV 10/11/24 16:00 10/11/24 15:24 DC Heparin Sodium/ Dextrose 250 ml @ 0 mls/hr PROTOCOL IV 10/11/24 16:00 10/12/24 19:18 DC 10/11/24 16:14 8.7 MLS/HR Heparin Sodium/ Dextrose 250 ml @ 0 mls/hr Q6H IV 10/10/24 09:00 10/10/24 08:26 DC Heparin Sodium/ Dextrose 250 ml @ 0 mls/hr Q6H IV 10/06/24 07:30 10/10/24 08:17 DC 10/08/24 14:20 0 MLS/HR Insulin Human Regular (humuLIN R 100 UNIT/ML 3ML) INSULIN SLIDING SCAL... ACHS SQ 10/13/24 11:30 11/12/24 11:29 Insulin Human Regular (humuLIN R 100 UNIT/ML 3ML) INSULIN SLIDING SCAL... ACHS SQ 10/06/24 07:30 10/11/24 08:37 DC Insulin Human Regular 100 unit/ Sodium Chloride 100 ml @ 0 mls/hr AD IV 10/11/24 09:00 10/13/24 08:59 DC 10/11/24 23:19 3 MLS/HR Iron Sucrose (VenoFER) 200 mg AD IV 10/14/24 18:30 10/14/24 18:34 DC Iron Sucrose (VenoFER) 200 mg Q24H IV 10/14/24 19:00 10/16/24 19:01 DC 10/16/24 18:32 200 MG Lactulose (Constulose 20gm/ 30ml Udcup) 20 gm BID PRN PO CONSTIPATION 10/11/24 09:00 11/10/24 08:59 Levothyroxine Sodium (SYNTHroid 100MCG TAB) 100 mcg SYN PO 10/09/24 06:30 11/08/24 06:29 10/17/24 06:12 100 MCG Lidocaine HCl/ Dextrose 250 ml @ 0 mls/hr AD PRN IV TITRATE 10/11/24 11:00 10/12/24 19:18 DC 10/12/24 14:44 7.5 MLS/HR Magnesium Hydroxide (Milk Of Magnesium 30ml) 30 ml DAILY PRN PO CONSTIPATION 10/11/24 09:00 11/10/24 08:59 Magnesium Sulfate 50 ml @ 12.5 mls/hr AD PRN IV MAG LEVEL LESS THAN 2.0 10/11/24 09:00 11/10/24 08:59 10/12/24 23:52 12.5 MLS/HR Magnesium Sulfate 50 ml @ 0 mls/hr PROTOCOL PRN IV h 10/05/24 23:30 10/11/24 08:37 DC Metoprolol Tartrate (loprESSOR) 12.5 mg BID PO 10/07/24 09:00 10/11/24 08:37 DC 10/11/24 06:32 12.5 MG Metoprolol Tartrate (loprESSOR) 12.5 mg BID PO 10/13/24 09:00 11/12/24 08:59 10/17/24 08:19 12.5 MG Morphine Sulfate (morPHINE 2MG SYG) 0.5 mg Q2H PRN IV MODERATE PAIN (4-6) 10/11/24 09:00 10/12/24 08:59 DC Morphine Sulfate (morPHINE 2MG SYG) 1 mg Q2H PRN IV SEVERE PAIN (7-10) 10/11/24 09:00 10/16/24 11:59 DC Nitroglycerin (Nitroglycerin 1gm Oint) 0.5 inch Q8H TD 10/05/24 23:30 10/11/24 08:37 DC 10/10/24 22:37 0.5 INCH Nitroglycerin (Nitrostat) 0.4 mg AD PRN SL CHEST PAIN 10/05/24 22:30 10/11/24 08:37 DC Nitroglycerin/ Dextrose 0 ml @ 0 mls/hr AD IV 10/11/24 09:00 10/14/24 08:59 DC 10/11/24 12:00 0 MLS/HR Norepinephrine Bitartrate 250 ml @ 0 mls/hr AD PRN IV TITRATE 10/11/24 07:00 10/11/24 09:03 DC Norepinephrine Bitartrate 250 ml @ 0 mls/hr AD PRN IV POST-OP CARDIOVASCULAR ORDERS 10/11/24 09:00 11/10/24 08:59 10/12/24 08:08 11.3 MLS/HR Ondansetron HCl (zoFRAN 4MG INJ) 4 mg Q6H PRN IV NAUSEA/VOMITING 10/11/24 09:00 11/10/24 08:59 10/13/24 08:20 4 MG Ondansetron HCl (zoFRAN 4MG INJ) 4 mg Q6H PRN IV NAUSEA/VOMITING 10/05/24 23:30 10/11/24 08:37 DC Pantoprazole Sodium (PROTonix 40MG TAB) 40 mg DAILY PO 10/06/24 09:00 10/11/24 08:37 DC 10/10/24 09:00 40 MG Pharmacy Profile Note (Pharmacy Communication) 1 each ONCE MISC 10/07/24 17:30 10/08/24 07:12 DC 10/07/24 23:37 1 EACH Potassium Phosphate 250 ml @ 42 mls/hr AD PRN IV LOW PHOS LEVEL 10/11/24 09:00 11/10/24 08:59 Potassium Chloride 100 ml @ 100 mls/hr AD PRN IV HYPOKALEMIA 10/11/24 09:00 11/10/24 08:59 10/16/24 09:02 100 MLS/HR Potassium Chloride 100 ml @ 100 mls/hr AD PRN IV POTASSIUM PROTOCOL 10/05/24 23:30 10/11/24 08:37 DC Potassium Chloride (K-Dur/Klor-Con 20meq) 20 meq AD PRN PO POTASSIUM PROTOCOL 10/05/24 23:30 10/11/24 08:37 DC Potassium Chloride (KCl 10% Elixir 20meq/15ml) 20 meq AD PRN PO POTASSIUM PROTOCOL 10/14/24 09:00 11/13/24 08:59 10/17/24 10:42 20 MEQ Potassium Chloride (KCl 10% Elixir 20meq/15ml) 20 meq AD PRN PO POTASSIUM PROTOCOL 10/05/24 23:30 10/11/24 08:37 DC 10/09/24 21:00 20 MEQ Propofol 100 ml @ 0 mls/hr AD PRN IV SEDATION 10/11/24 09:00 10/15/24 08:59 DC Sodium Bicarbonate (Sodium Bicarb 50meq 50ml Vial) 50 meq AD PRN IV OTHER[SEE DOSING INSTRUCTIONS] 10/11/24 09:00 10/14/24 08:59 DC 10/11/24 18:14 50 MEQ Sodium Chloride 500 ml @ 0 mls/hr AD IV 10/11/24 09:00 11/10/24 08:59 Sodium Chloride 500 ml @ 0 mls/hr Q0M IV 10/06/24 21:30 10/11/24 08:37 DC Sodium Chloride 1,000 ml @ 10 mls/hr ONCE IV 10/11/24 09:00 10/11/24 08:52 DC Sodium Chloride (NS Flush 10ml) 10 ml Q8H IVP 10/07/24 17:30 11/06/24 17:29 10/17/24 08:21 10 ML Sodium Chloride (NS Flush 10ml) 10 ml Q8H PRN IVP IV LINE FLUSH 10/11/24 09:00 11/10/24 08:59 Tramadol HCl (UltRAM) 25 mg Q6H PRN PO MODERATE PAIN (4-6) 10/10/24 14:30 10/11/24 08:37 DC 10/10/24 16:13 25 MG Tramadol HCl (UltRAM) 25 mg Q6H PRN PO MODERATE PAIN (4-6) 10/11/24 09:00 10/16/24 08:59 DC Tramadol HCl (UltRAM) 50 mg Q6H PRN PO SEVERE PAIN (7-10) 10/11/24 09:00 10/16/24 08:59 DC 10/14/24 08:29 50 MG Vasopressin 40 units/Sodium Chloride 40 ml @ 0 mls/hr PROTOCOL IV 10/11/24 11:00 11/10/24 10:59 Vitamin B Complex (Vitamin B-12) 1,000 mcg DAILY PO 10/15/24 21:00 11/14/24 20:59 10/17/24 08:20 1,000 MCG DIAGNOSTICS / RADIOLOGY: PATIENT: WATSON MAC MR#: [id number] : 1945 SEX: F AGE: 79 LOCATION: 2CH ORDER 230 STATUS: ADM IN REPORT#: [id number] SERVICE 0400 REASON: s/p CABG ORDERING PHYSICIAN: NAWAF GREGG MD PROCEDURE: CXR1VW - CHEST 1VW CHEST 1VW REASON: s/p CABG COMPARISON: 10/15/2024 FINDINGS: Heart size is stable. There is decreasing atelectasis medial left lung base. Lungs are otherwise clear. Left chest tube remains in place, there is no pneumothorax. IMPRESSION: 1. Improving postop chest. 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 and HS Humulin R sliding scale Follow Cardiothoracic recommendations and Cardiology recommendations Maintain electrolyte balance ATTESTATION BY PHYSICIAN I have seen and examined the patient. I reviewed the documentation, medical decision making, and treatment plan as noted by the resident provider above. I agree with the findings and plan of care. Ananda Walden MD, NIHITHA MD Oct 17, 2024 12:54 ANANDA WALDEN MD Oct 17, 2024 18:46
--- NOTE | 2024-10-17 14:21 | HMCIMG ---
NM GI BLOOD LOSS IMAG REASON: gi bleed COMPARISON: None TECHNIQUE: Routine imaging protocol was performed following injection of 27.5 mCi technetium 99 tagged red blood cells. FINDINGS: Immediate blood pool images show some accumulation of activity in the left groin in the region of the common femoral artery. This appears on the immediate blood flow images and persists on the sequential 1 minute images, through 40 minutes. This does not appear to significantly change from the initial blood pool appearance. 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 Continued active bleeding from the groin is considered unlikely. Remainder of exam is unremarkable. There are no other focal abnormal accumulations. IMPRESSION: 1. Abnormal accumulation of isotope in the left groin in the region of the common femoral artery, seen on the initial blood flow images and persisting through the 40 minute to images. 2. Pseudoaneurysm is favored over ongoing inguinal bleeding 3. Otherwise unremarkable exam.
--- NOTE | 2024-10-17 15:00 | NUR ---
dr. العراقي aware of gi nuclear med scan results that shows pseudoaneurysm . no new orders.zhane funes quality control projectionist for gi aware ,.no new orders.
--- NOTE | 2024-10-17 17:12 | NUR ---
Discharge Planning: Referral sent to [facility]. Pending insurance authorization.
[2024-10-17] MEDS ORDERED: IRON sUCROse COMPLEX 100 MG/5 ML VIAL IV ONE (18:00)
--- NOTE | 2024-10-17 21:42 | PN ---
"[facility] PROGRESS NOTE Date Patient Seen: Oct 17, 2024 Time of Visit: 21:38 Supervising Physician: Dr. Sindhu Pulido Primary Care Physician: Maine Euceda MD Outpatient Specialists: Inpatient Consults: CV Surgery Dr Licona, Dr Ravi MD, BIS Attending physician|: Kali Carroll MD PROBLEM LIST: Multivessel CAD status post CABG x2 on 10/11/24 (Dr Licona) NSTEMI, POA, IABP rt femoral, removed 10/12/24 Cardiomyopathy with EF of 35-40% POA Postoperative AFib with RVR on amiodarone drip and lidocaine drip CKD stage IIIA, POA hyperglycemia in the presence of type 2 diabetes mellitus, POA Hypertension Hypothyroidism Raynaud's phenomenon GI bleed resolved INTERVAL HISTORY: Patient is day five status post CABG. During evaluation patient is sitting in a recliner next to her bed, she is comfortable, tolerating her diet well. She is currently hemodynamically stable, and has been weaned off pressors. Chest tube removed, pressure dressing to be removed today. Patient is currently on room air, continues on Plavix. Most recent chest x-ray shows no acute cardiopulmonary processes. Patient's only complaint at this time is mild swelling to bilateral lower extremities. Patient advised to elevate legs, compression stockings ordered. She continues on Lasix 20 milligrams b.i.d.. White count today is slightly elevated at 15.0, hemoglobin stable at 10.5. Patient underwent a nuclear medicine GI bleed scan, shows no acute bleed however there is a left common femoral artery possible pseudoaneurysm. Cardiology notified. Patient remains on PCCU status at this time, pending work with PT today. REVIEW OF SYSTEMS: 12 point ROS reviewed with patient. Pertinent positives mentioned above. O therwise negative. PHYSICAL EXAM: GENERAL: Post CABG , recovering HEENT: Sclera non icteric, moist mucosa NECK: Supple, no JVD, trachea midline Rt IJ LUNGS: Clear breath sounds to all lobes bilaterally. No wheezes HEART: Regular rate and rhythm. Normal S1 and S2, without murmurs , dressing to midsternal area clean dry and intact. Chest tube ABD: Abdomen soft, nontender. Bowel sounds present EXT: No clubbing cyanosis +1 pitting edema to BLE. pulses palpable. cap refill < 3 seconds to carlos feet. NEURO: GCS 15 no focal weakness. Vital Signs (last 8hr) Date Time Temp Pulse Resp B/P (MAP) Pulse Ox O2 Delivery O2 Flow Rate FiO2 10/17/24 20:30 98 Room Air* 0 21 10/17/24 19:53 98.1 82 20 122/66 97 Room Air 10/17/24 16:58 97.5 85 18 131/82 96 Room Air LABS: Hematology Labs: Test 10/17/24 03:14 Range/Units White Blood Count 15.0 H 4.8-10.8 K/uL Red Blood Count 3.57 #L 4.00-5.50 MIL/uL Hemoglobin 10.5 #L 12.0-16.0 g/dL Hematocrit 32.1 #L 36-48 % Mean Corpuscular Volume 89.9 79-99 fL Mean Corpuscular Hemoglobin 29.4 27.0-33.0 pg Mean Corpuscular Hemoglobin Concent 32.7 32.0-36.0 g/dL Red Cell Distribution Width 15.9 H 11.0-15.5 % Platelet Count 193 130-400 K/uL Mean Platelet Volume 10.8 H 7.5-10.5 fL Nucleated Red Blood Cells 1.4 H 0.0-0.19 % Chemistry Labs: Test 10/17/24 19:31 10/17/24 03:14 10/16/24 04:02 Range/Units Whole Blood Glucose 176 H 70-110 MG/DL Sodium Level 142 136-145 mmol/L Potassium Level 3.3 L 3.5-5.1 mmol/L Chloride Level 107 101-111 mmol/L Carbon Dioxide Level 28 21-32 mmol/L Blood Urea Nitrogen 22 H 7-18 mg/dL Creatinine 0.6 0.5-1.0 mg/dL Glomerular Filtration Rate Calc 91 >90 mL/min Random Glucose 93 70-105 mg/dL Total Calcium 7.4 L 8.5-10.1 mg/dL Magnesium Level 1.90 1.80-2.40 mg/dL DIAGNOSTICS / RADIOLOGY RESULTS: [ ] PLAN NEURO: Minimize central acting medications as possible. Maintain fall precautions, adequate lighting during the day PULMONARY: Supplemental 02 as needed. Maintain aspiration precautions at all times CARDIOVASCULAR: Follow hemodynamics. Vital signs per facility protocol GI & NUTRITION: Continue with nutritional support. Continue stool softeners and laxatives as needed. KIDNEYS & ELECTROLYTES: Strict monitoring of intake, output and overall fluid balance. Avoid nephrotoxic medications to the extent possible. Medications to be dosed according to renal function. Monitor electrolytes and replace as needed ENDOCRINE: Maintain blood glucose between 100-180 at all times. Hypoglycemia protocol in place INFECTIOUS DISEASE: Trend temperature, WBC and procalcitonin level Follow cultures, deescalate antibiotics as soon as possible. Panculture if new onset fever ONCOLOGY/HEMATOLOGY/COAGULATION: Monitor for s/s of bleeding Monitor hemoglobin, coagulation studies as needed SKIN: Pressure ulcer prevention per facility protocol Specialty mattress ORTHO/REHAB: Continue PT/OT Prophylaxis: Continue GI and DVT prophylaxis Code Status: Full Resuscitation Disposition: TBD Other: Total patient care time exceeds 35 minutes excluding all procedures. IDALIA SYLVESTER Oct 17, 2024 21:42"
--- NOTE | 2024-10-17 23:25 | NUR ---
Bed alarm refusal/FR [facility] Pt states she does not want the bed alarm. States to COMPLIANCE TESTER she has refusal. No refusal seen signed. Educated pt on importance of alarms to ensure pt safety and on fall risk education. Pt states she will use call light before getting up, does not want alarm. Refusal for alarm signed.
[2024-10-18] VITALS (8 sets, daily range): BP systolic 127–143; BP diastolic 65–78; PULSE 69–79; RESP 18–20; TEMP 97.5–99; O2SAT 98
[2024-10-18 03:47] LABS: BASOPHILS # (AUTO) 0.06 K/uL (0.00-0.20); BASOPHILS % (AUTO) 0.4 % (0.0-5.0); EOSINOPHILS # (AUTO) 0.31 K/uL (0.00-0.70); EOSINOPHILS % (AUTO) 2.1 % (0.0-8.0); HEMATOCRIT 31.7 % (36-48); IMMATURE GRANULOCYTE ABSOLUTE 0.47 K/uL (0-1); LYMPHOCYTES # (AUTO) 2.1 K/uL (1.0-4.8); LYMPHOCYTES % (AUTO) 13.8 % (21.0-51.0); MEAN CORPUSCULAR HGB CONC 32.2 g/dL (32.0-36.0); MEAN CORPUSCULAR VOLUME 90.1 fL (79-99); MONOCYTES # (AUTO) 1.1 K/uL (0.1-1.0); MONOCYTES % (AUTO) 7.6 % (3.0-13.0); NEUTROPHILS # (AUTO) 10.9 K/uL (1.8-7.7); NUCLEATED RED BLOOD CELLS 0.7 % (0.0-0.19); PLATELET COUNT (AUTO) 233 K/uL (130-400); RED BLOOD CELL COUNT(AUTO) 3.52 MIL/uL (4.00-5.50); RED CELL DISTRIBUTION WIDTH 17.3 % (11.0-15.5)
[2024-10-18 04:02] LABS: ALBUMIN 2.3 g/dL (3.5-5.0); BILIRUBIN,TOTAL 0.9 mg/dL (0.2-1.0); CREATININE 0.7 mg/dL (0.5-1.0); POTASSIUM 3.6 mmol/L (3.5-5.1); TOTAL PROTEIN, SERUM 5.3 g/dL (6.0-8.3)
--- NOTE | 2024-10-18 07:33 | PN ---
GASTROENTEROLOGY PROGRESS NOTE Date of Visit: Oct 18, 2024 Time of Visit: 07:32 Events / Notes: No acute events overnight. NM GI bleeding scan without GI bleed. Hgb improved. No overt GI bleeding. Denies fever, chills, abdominal pain, N/V, hematemesis, bloating, constipation, diarrhea, melena or hematochezia. Review of Systems: CONSTITUTIONAL: No malaise or change in sensation of wellbeing. ENMT: No rhinorrhea, otorrhea, sinus pain, ear ache. CARDIOVASCULAR: No angina, palpitations, orthopnea or paroxysmal dyspnea. RESPIRATORY: No SOB. GASTROINTESTINAL: No abdominal pain, nausea, vomiting, diarrhea, hematemesis, melena or change in the patient's habitual bowel movements consistency/number. GENITOURINARY: No dysuria, hematuria or change in bladder continence. MUSCULOSKELETAL: No new muscle pain or decrease in muscular strength. No new joint swelling, redness or tenderness. SKIN: No new rash. Physical Exam: GEN: Awake, alert, oriented in person, time and place, and in no acute distress. HEENT: No sinus tenderness. Tympanic membranes were not examined. No rhinorrhea. Oral pharyngeal mucosa is pink, moist and within normal limits. Neck is supple with no cervical lymphadenopathy, thyromegaly or JVD. CHEST: Inspection, palpation and percussion of the chest were unremarkable. Lung auscultation revealed normal breath sounds bilaterally. CARDIAC: PMI is within normal limits. Heart sounds are regular. Normal S1, S2. No gallop or murmur. ABD: Soft, non-tender and not distended. No peritoneal signs on palpation. No organomegaly. Normal bowel sounds. EXT: No cyanosis or clubbing. No edema. SKIN: Intact. No rashes. JOINTS: No evidence of synovitis or acute arthritis. NEURO: Alert and oriented to name, place and person. Cranial nerve examination is unremarkable. No focal motor deficits. Normal speech. Gait is normal. Strength is normal. Vital Signs (last 8hr) Date Time Temp Pulse Resp B/P (MAP) Pulse Ox O2 Delivery O2 Flow Rate FiO2 10/18/24 04:00 99.0 69 20 127/65 100 Room Air 10/17/24 23:46 98.4 66 20 140/80 100 Room Air Laboratory: [ ] Laboratory: Test 10/18/24 05:04 10/18/24 03:31 Range/Units Whole Blood Glucose 100 70-110 MG/DL White Blood Count 15.0 H 4.8-10.8 K/uL Red Blood Count 3.52 L 4.00-5.50 MIL/uL Hemoglobin 10.2 L 12.0-16.0 g/dL Hematocrit 31.7 L 36-48 % Mean Corpuscular Volume 90.1 79-99 fL Mean Corpuscular Hemoglobin 29.0 27.0-33.0 pg Mean Corpuscular Hemoglobin Concent 32.2 32.0-36.0 g/dL Red Cell Distribution Width 17.3 H 11.0-15.5 % Platelet Count 233 130-400 K/uL Mean Platelet Volume 10.3 7.5-10.5 fL Immature Granulocyte % (Auto) 3.1 H 0-1 % Neutrophils (%) (Auto) 73.0 40.0-77.0 % Lymphocytes (%) (Auto) 13.8 L 21.0-51.0 % Monocytes (%) (Auto) 7.6 3.0-13.0 % Eosinophils (%) (Auto) 2.1 0.0-8.0 % Basophils (%) (Auto) 0.4 0.0-5.0 % Neutrophils # (Auto) 10.9 H 1.8-7.7 K/uL Lymphocytes # (Auto) 2.1 1.0-4.8 K/uL Monocytes # (Auto) 1.1 H 0.1-1.0 K/uL Eosinophils # (Auto) 0.31 0.00-0.70 K/uL Basophils # (Auto) 0.06 0.00-0.20 K/uL Absolute Immature Granulocyte (auto 0.47 0-1 K/uL Nucleated Red Blood Cells 0.7 H 0.0-0.19 % Sodium Level 138 136-145 mmol/L Potassium Level 3.6 3.5-5.1 mmol/L Chloride Level 104 101-111 mmol/L Carbon Dioxide Level 29 21-32 mmol/L Blood Urea Nitrogen 14 7-18 mg/dL Creatinine 0.7 0.5-1.0 mg/dL Glomerular Filtration Rate Calc 88 >90 mL/min Random Glucose 122 H 70-105 mg/dL Total Calcium 7.6 L 8.5-10.1 mg/dL Total Bilirubin 0.9 0.2-1.0 mg/dL Aspartate Amino Transf (AST/SGOT) 34 10-37 U/L Alanine Aminotransferase (ALT/SGPT) 15 12-78 U/L Alkaline Phosphatase 59 50-136 U/L Total Protein 5.3 L 6.0-8.3 g/dL Albumin 2.3 L 3.5-5.0 g/dL Current Medications Medications (Trade) Dose Ordered Sig/Rashad Route PRN Reason Start Time Stop Time Status Last Admin Dose Admin Acetaminophen (TYLenol 325MG TAB) 650 mg Q4H PRN PO Temp >38.3C(AFTER EXTUBATION) 10/11/24 09:00 11/10/24 08:59 Acetaminophen (TYLenol 325MG TAB) 650 mg Q6H PRN PO MILD PAIN (1-3) 10/11/24 09:00 11/10/24 08:59 10/18/24 01:55 650 MG Acetaminophen (TYLenol 325MG TAB) 650 mg Q6H PRN PO TEMPERATURE GREATER THAN 101.5 10/05/24 23:30 10/14/24 09:10 DC 10/10/24 06:06 650 MG Acetaminophen (TYLenol 650MG SUPPOSITORY) 650 mg Q4H PRN RC Temp >38.3C WHILE INTUBATED 10/11/24 09:00 11/10/24 08:59 Acetaminophen (acetaMINOPHEN) 1,000 mg Q6H6 IV 10/11/24 12:00 10/12/24 11:59 DC 10/12/24 05:06 1,000 MG Albumin Human 250 ml @ 0 mls/hr AD PRN IV IF HEMODYNAMICALLY UNSTABLE 10/11/24 09:00 10/11/24 23:20 DC 10/11/24 23:20 250 MLS/HR Aminocaproic Acid 49231 mg/Sodium Chloride 310 ml @ 25 mls/hr AD IV 10/11/24 09:00 10/11/24 08:54 DC Aminocaproic Acid 68662 mg/Sodium Chloride 480 ml @ 0 mls/hr AD PRN IV BLEEDING CONTROL 10/11/24 07:00 11/10/24 06:59 Amiodarone HCl (pacERONE 200MG) 200 mg DAILY PO 10/13/24 09:00 11/12/24 08:59 10/17/24 08:20 200 MG Amiodarone HCl 150 mg/Dextrose 103 ml @ 618 mls/hr ONCE IV 10/11/24 12:00 10/11/24 12:09 DC 10/11/24 11:57 618 MLS/HR Amiodarone HCl 360 mg/Dextrose 207.2 ml @ 33.3 mls/hr AD IV 10/11/24 12:00 10/12/24 19:18 DC 10/11/24 12:04 33.3 MLS/HR Amiodarone HCl 540 mg/Dextrose 310.8 ml @ 16.7 mls/hr [id number] IV 10/11/24 12:00 11/10/24 11:59 10/11/24 18:20 16.7 MLS/HR Aspirin (Aspirin 81mg Chew Tab) 81 mg DAILY PO 10/06/24 09:00 11/05/24 08:59 10/17/24 08:20 81 MG Atorvastatin Calcium (LIPItor 20MG) 20 mg HS PO 10/08/24 21:00 10/11/24 08:37 DC 10/10/24 20:55 20 MG Atorvastatin Calcium (LIPItor 20MG) 40 mg HS PO 10/11/24 21:00 10/14/24 09:11 DC 10/13/24 20:32 40 MG Atorvastatin Calcium (LIPItor 40MG) 40 mg HS PO 10/14/24 21:00 11/10/24 20:59 10/17/24 20:28 40 MG Calcium Gluconate 1 gm/Sodium Chloride 60 ml @ 200 mls/hr AD PRN IV HYPOCALCEMIA 10/11/24 09:00 11/10/24 08:59 10/13/24 17:20 200 MLS/HR Cefazolin Sodium (Ancef) 2 gm ONCALL PRN IVP SURGERY 10/10/24 12:00 10/12/24 11:59 DC Cefazolin Sodium (Ancef) 2 gm Q8H IVPB 10/11/24 14:00 10/12/24 06:01 DC 10/12/24 06:21 2 GM Clopidogrel Bisulfate (plaVIX 75MG) 75 mg DAILY PO 10/12/24 09:00 11/11/24 08:59 10/17/24 08:20 75 MG Cyclobenzaprine HCl (Cyclobenzaprine HCl) 5 mg TID PRN PO MUSCLE SPASMS 10/10/24 14:30 10/11/24 08:37 DC Dexmedetomidine/ Sodium Chloride (PRECEdex 400MCG/ 100ML-NS) 400 mcg PROTOCOL IV 10/11/24 09:00 10/12/24 08:59 DC Dextrose (D50w) 50 ml AD PRN IV HYPOGLYCEMIA PROTOCOL 10/11/24 09:00 10/13/24 07:52 DC Dextrose (D50w) 50 ml AD PRN IV HYPOGLYCEMIA PROTOCOL 10/11/24 15:00 11/10/24 14:59 Docusate Sodium (COLace 100MG CAP) 100 mg BID PO 10/12/24 09:00 10/17/24 10:46 DC 10/16/24 09:01 100 MG Docusate Sodium (COLace 100MG CAP) 100 mg BID PRN PO CONSTIPATION 10/17/24 11:00 11/11/24 08:59 Enoxaparin Sodium (Lovenox) 30 mg DAILY SQ 10/14/24 09:00 10/11/24 14:00 DC Epinephrine HCl 10 mg/Sodium Chloride 250 ml @ 7.716 mls/ hr AD PRN IV POST-OP CARDIOVASCULAR ORDERS 10/11/24 09:00 10/16/24 08:59 DC Epinephrine HCl 10 mg/Sodium Chloride 250 ml @ 0 mls/hr AD PRN IV TITRATE 10/11/24 07:00 10/11/24 09:01 DC Famotidine (Pepcid 20mg Vial) 20 mg BID IV 10/11/24 09:00 10/11/24 09:03 DC Famotidine (Pepcid 20mg Vial) 20 mg Q24H IV 10/11/24 09:30 11/10/24 08:59 10/17/24 08:21 20 MG Folic Acid (FOLic ACID 1 MG TABLET) 1 mg DAILY PO 10/15/24 21:00 11/14/24 20:59 10/17/24 08:18 1 MG Furosemide (LASix 20MG TAB) 20 mg Q12H PO 10/13/24 09:00 11/12/24 08:59 10/17/24 20:28 20 MG Furosemide (LASix 20MG VIAL) 20 mg Q12H IV 10/12/24 09:00 10/13/24 08:59 DC 10/12/24 21:18 20 MG Glucagon (Glucagon 1mg Kit) 1 mg AD PRN IM HYPOGLYCEMIA PROTOCOL 10/11/24 09:00 10/13/24 07:52 DC Glucagon (Glucagon 1mg Kit) 1 mg AD PRN IM HYPOGLYCEMIA PROTOCOL 10/11/24 15:00 11/10/24 14:59 Heparin Sodium (Porcine) (HEParin 5,000 UNIT VIAL) *calculation based on ACTUAL B... AD PRN IV HEPARIN PROTOCOL 10/06/24 07:30 10/10/24 08:27 DC 10/06/24 07:19 3,877.5 UNIT Heparin Sodium (Porcine) (HEParin 5,000 UNIT VIAL) 5,000 unit BID SQ 10/06/24 09:00 10/06/24 06:29 DC Heparin Sodium/ Dextrose 250 ml @ 0 mls/hr PROTOCOL IV 10/11/24 16:00 10/11/24 15:24 DC Heparin Sodium/ Dextrose 250 ml @ 0 mls/hr PROTOCOL IV 10/11/24 16:00 10/12/24 19:18 DC 10/11/24 16:14 8.7 MLS/HR Heparin Sodium/ Dextrose 250 ml @ 0 mls/hr Q6H IV 10/10/24 09:00 10/10/24 08:26 DC Heparin Sodium/ Dextrose 250 ml @ 0 mls/hr Q6H IV 10/06/24 07:30 10/10/24 08:17 DC 10/08/24 14:20 0 MLS/HR Insulin Human Regular (humuLIN R 100 UNIT/ML 3ML) INSULIN SLIDING SCAL... ACHS SQ 10/13/24 11:30 11/12/24 11:29 10/17/24 20:52 2 UNIT Insulin Human Regular (humuLIN R 100 UNIT/ML 3ML) INSULIN SLIDING SCAL... ACHS SQ 10/06/24 07:30 10/11/24 08:37 DC Insulin Human Regular 100 unit/ Sodium Chloride 100 ml @ 0 mls/hr AD IV 10/11/24 09:00 10/13/24 08:59 DC 10/11/24 23:19 3 MLS/HR Iron Sucrose (VenoFER) 200 mg AD IV 10/14/24 18:30 10/14/24 18:34 DC Iron Sucrose (VenoFER) 200 mg Q24H IV 10/14/24 19:00 10/16/24 19:01 DC 10/16/24 18:32 200 MG Lactulose (Constulose 20gm/ 30ml Udcup) 20 gm BID PRN PO CONSTIPATION 10/11/24 09:00 11/10/24 08:59 Levothyroxine Sodium (SYNTHroid 100MCG TAB) 100 mcg SYN PO 10/09/24 06:30 11/08/24 06:29 10/18/24 06:05 100 MCG Lidocaine HCl/ Dextrose 250 ml @ 0 mls/hr AD PRN IV TITRATE 10/11/24 11:00 10/12/24 19:18 DC 10/12/24 14:44 7.5 MLS/HR Magnesium Hydroxide (Milk Of Magnesium 30ml) 30 ml DAILY PRN PO CONSTIPATION 10/11/24 09:00 11/10/24 08:59 Magnesium Sulfate 50 ml @ 12.5 mls/hr AD PRN IV MAG LEVEL LESS THAN 2.0 10/11/24 09:00 11/10/24 08:59 10/12/24 23:52 12.5 MLS/HR Magnesium Sulfate 50 ml @ 0 mls/hr PROTOCOL PRN IV h 10/05/24 23:30 10/11/24 08:37 DC Metoprolol Tartrate (loprESSOR) 12.5 mg BID PO 10/07/24 09:00 10/11/24 08:37 DC 10/11/24 06:32 12.5 MG Metoprolol Tartrate (loprESSOR) 12.5 mg BID PO 10/13/24 09:00 11/12/24 08:59 10/17/24 20:29 12.5 MG Morphine Sulfate (morPHINE 2MG SYG) 0.5 mg Q2H PRN IV MODERATE PAIN (4-6) 10/11/24 09:00 10/12/24 08:59 DC Morphine Sulfate (morPHINE 2MG SYG) 1 mg Q2H PRN IV SEVERE PAIN (7-10) 10/11/24 09:00 10/16/24 11:59 DC Nitroglycerin (Nitroglycerin 1gm Oint) 0.5 inch Q8H TD 10/05/24 23:30 10/11/24 08:37 DC 10/10/24 22:37 0.5 INCH Nitroglycerin (Nitrostat) 0.4 mg AD PRN SL CHEST PAIN 10/05/24 22:30 10/11/24 08:37 DC Nitroglycerin/ Dextrose 0 ml @ 0 mls/hr AD IV 10/11/24 09:00 10/14/24 08:59 DC 10/11/24 12:00 0 MLS/HR Norepinephrine Bitartrate 250 ml @ 0 mls/hr AD PRN IV TITRATE 10/11/24 07:00 10/11/24 09:03 DC Norepinephrine Bitartrate 250 ml @ 0 mls/hr AD PRN IV POST-OP CARDIOVASCULAR ORDERS 10/11/24 09:00 11/10/24 08:59 10/12/24 08:08 11.3 MLS/HR Ondansetron HCl (zoFRAN 4MG INJ) 4 mg Q6H PRN IV NAUSEA/VOMITING 10/11/24 09:00 11/10/24 08:59 10/13/24 08:20 4 MG Ondansetron HCl (zoFRAN 4MG INJ) 4 mg Q6H PRN IV NAUSEA/VOMITING 10/05/24 23:30 10/11/24 08:37 DC Pantoprazole Sodium (PROTonix 40MG TAB) 40 mg DAILY PO 10/06/24 09:00 10/11/24 08:37 DC 10/10/24 09:00 40 MG Pharmacy Profile Note (Pharmacy Communication) 1 each ONCE MISC 10/07/24 17:30 10/08/24 07:12 DC 10/07/24 23:37 1 EACH Potassium Phosphate 250 ml @ 42 mls/hr AD PRN IV LOW PHOS LEVEL 10/11/24 09:00 11/10/24 08:59 Potassium Chloride 100 ml @ 100 mls/hr AD PRN IV HYPOKALEMIA 10/11/24 09:00 11/10/24 08:59 10/16/24 09:02 100 MLS/HR Potassium Chloride 100 ml @ 100 mls/hr AD PRN IV POTASSIUM PROTOCOL 10/05/24 23:30 10/11/24 08:37 DC Potassium Chloride (K-Dur/Klor-Con 20meq) 20 meq AD PRN PO POTASSIUM PROTOCOL 10/05/24 23:30 10/11/24 08:37 DC Potassium Chloride (KCl 10% Elixir 20meq/15ml) 20 meq AD PRN PO POTASSIUM PROTOCOL 10/14/24 09:00 11/13/24 08:59 10/18/24 06:05 20 MEQ Potassium Chloride (KCl 10% Elixir 20meq/15ml) 20 meq AD PRN PO POTASSIUM PROTOCOL 10/05/24 23:30 10/11/24 08:37 DC 10/09/24 21:00 20 MEQ Propofol 100 ml @ 0 mls/hr AD PRN IV SEDATION 10/11/24 09:00 10/15/24 08:59 DC Sodium Bicarbonate (Sodium Bicarb 50meq 50ml Vial) 50 meq AD PRN IV OTHER[SEE DOSING INSTRUCTIONS] 10/11/24 09:00 10/14/24 08:59 DC 10/11/24 18:14 50 MEQ Sodium Chloride 500 ml @ 0 mls/hr AD IV 10/11/24 09:00 11/10/24 08:59 Sodium Chloride 500 ml @ 0 mls/hr Q0M IV 10/06/24 21:30 10/11/24 08:37 DC Sodium Chloride 1,000 ml @ 10 mls/hr ONCE IV 10/11/24 09:00 10/11/24 08:52 DC Sodium Chloride (NS Flush 10ml) 10 ml Q8H IVP 10/07/24 17:30 11/06/24 17:29 10/18/24 00:19 10 ML Sodium Chloride (NS Flush 10ml) 10 ml Q8H PRN IVP IV LINE FLUSH 10/11/24 09:00 11/10/24 08:59 Tramadol HCl (UltRAM) 25 mg Q6H PRN PO MODERATE PAIN (4-6) 10/10/24 14:30 10/11/24 08:37 DC 10/10/24 16:13 25 MG Tramadol HCl (UltRAM) 25 mg Q6H PRN PO MODERATE PAIN (4-6) 10/11/24 09:00 10/16/24 08:59 DC Tramadol HCl (UltRAM) 50 mg Q6H PRN PO SEVERE PAIN (7-10) 10/11/24 09:00 10/16/24 08:59 DC 10/14/24 08:29 50 MG Vasopressin 40 units/Sodium Chloride 40 ml @ 0 mls/hr PROTOCOL IV 10/11/24 11:00 11/10/24 10:59 Vitamin B Complex (Vitamin B-12) 1,000 mcg DAILY PO 10/15/24 21:00 11/14/24 20:59 10/17/24 08:20 1,000 MCG Diagnostics / Radiology: [COPY/PASTE HERE IF NO REPORTS PLEASE DELETE SECTION] Assessment: Concern for GI bleed Anemia, multifactorial CAD Plan: Will hold off on EGD at this time given stable hgb and no overt GI bleeding Continue plavix and aspirin Continue GI prophylaxis Advance diet as tolerated Avoid NSAIDs Antireflux measures Monitor H&H and transfuse as needed Call with questions, concerns or change in clinical status Patient to follow-up at clinic post discharge Thank you for this consult JAMIA AKBAR Oct 18, 2024 07:33
--- NOTE | 2024-10-18 10:50 | HMCIMG ---
CHEST 1VW REASON: post cabg COMPARISON: 10/16/2024 FINDINGS: Left chest tube is been removed. There is no pneumothorax. Exam remains otherwise stable and unchanged. IMPRESSION: 1. No evidence of pneumothorax following left-sided chest tube removal.
--- NOTE | 2024-10-18 10:51 | HMCIMG ---
US ARTERIAL UNILA LOW EXT DUPL REASON: left groin pseudo COMPARISON: None TECHNIQUE: Arterial vascular Doppler ultrasound was performed with spectral analysis and color flow imaging. FINDINGS: There is pseudoaneurysm in the left groin measuring 1.7 x 2.3 cm. Neck is 6 mm. This corresponds with the findings on the GI bleeding scan. Left leg arterial Doppler evaluation shows biphasic waveforms present throughout with the exception of the dorsalis pedis which is monophasic. Flow velocities are preserved throughout, also with the exception of the dorsalis pedis which shows moderate velocity reduction. IMPRESSION: 1. 1.7 x 2.3 cm pseudoaneurysm left groin. 2. Minimal arterial inflow occlusion dorsalis pedis artery, remainder of the left lower extremity appears unremarkable.
--- NOTE | 2024-10-18 13:26 | PN ---
[facility] PROGRESS NOTE Date of Service: Oct 18, 2024 Time of Service: 13:14 SUBJECTIVE: Ms. Mac is a 79-year-old female that was seen and examined today on 10/05/2024. Patient is a good historian and personal health. Patient states that she came to the emergency department with a chief complaint of bilateral chest wall pain closer to the axilla and pain also radiates to the back. Onset was 9:30 a.m.. Character is described as throbbing. Symptoms are aggravated with palpation and movement. Symptoms are not alleviated with a chiropractic adjustment in fact symptoms became worse after a chiropractic adjustment. There was no alleviating factors Duration of pain is on and off. Patient denies any associated shortness of breath, nausea, vomiting, headache, dizziness. Today in the emergency department CBC unremarkable, troponin 378 (high sensitivity), creatinine 1.1, glucose 208 mg/dL, GFR 51, no urinalysis has been collected or sent to lab. Emergency room initial impression and EKG is that there is new T-wave inversions signifying a change from previous EKGs one week ago at a prior emergency room visit. For this reason emergency room physician recommended patient be admitted with a diagnosis of chest pain. 10/06/24 patient was seen and examined in the ER. She reports that she was doing much better. She denies any chest pain. And she tells me that she came in because she had back pain radiating to bilateral shoulders. She does go to chiropractor to get this resolved but this time it was more persistent 10/07/2024 - patient is seen at bedside in the room ER 5. Patient denies any active chest pain, shortness of breath, nausea, vomiting. [place] [id number] and is coming down with treatment, patient is planned for director labor standards. Patient feels anxious about the upcoming director labor standards procedure and question regarding the procedures, all questions were answered. Patient informed about her extremities getting cold and color change to purplish red and about her joint problems and trouble of food getting stuck in the esophagus after swallowing , immunology workup is planned to rule out limited scleroderma . Patient is hemodynamically stable with temperature 98.6, pulse 77, respiratory rate 17, blood pressure 146/77, pulse oximetry 99% on room air. Patient's labs shows WBC 10.4, hemoglobin 13.5, chemistries show sodium 141, potassium 4.3, creatinine 0.8, BUN 14. Patient is currently on metoprolol, pantoprazole, aspirin, heparin, nitroglycerin. Patient will be followed cl osely, we will follow Cardiology recommendations. 10/08/2024 - patient is seen in room 201, patient denies any symptoms, patient was taken to the director labor standards yesterday in the results are as follows SELECTIVE CORONARY ANGIOGRAPHY: 1. Left main: The left main bifurcates into the left anterior descending and circumflex coronary artery. Distal Left main with 50% stenosis 2. Left anterior descending: The left anterior descending coronary artery gives rise to diagonal(s) and terminates as the apical recurrent branch. Prox LAD with 90% disease 3. Circumflex: The circumflex coronary artery is noted to provide obtuse marginal(s). Prox Cx with 95% disease 4. Right coronary artery: The right coronary artery is dominant and gives PDA and NIKITA. Prox RCA with 50% disease 5. Left ventricular end-diastolic pressure is elevated. There was no gradient noted upon pullback. Cardiothoracic surgeon is consulted and Dr. Licona has ordered an ultrasound carotid has a preoperative procedure. patient will be continued on medical management until the surgery . Patient is currently hemodynamically stable with temperature 98.2, pulse 81, blood pressure 122/80, respiratory rate 18, saturating at 94% on room air. Patient's labs shows WBC 10.7, hemoglobin 11.9 and chemistries show sodium 142, potassium 3.7, creatinine 0.7. Awaiting further instructions from cardio thoracic surgeon. 10/17/24 Patient was seen and examined at bedside. She feels better but complains of generalized weakness. She is working with PT at the time of evaluation. Pending bleeding scan today and GI recommendations for discharge. 10/18/24 patient is seen and examined along with the RN. 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 It was 1st identified on nuclear medicine bleeding scan done to rule out GI bleed which did rule out any GI bleed which showed accumulation of tracer in the left groin which was followed by an arterial dupl ex which did showed a pseudoaneurysm cardiology was notified pressure dressing was applied. No drop in hemoglobin REVIEW OF SYSTEMS CONSTITUTIONAL: Denies fevers, chills, or night sweats. No unintentional weight loss reported. NEUROLOGICAL: Denies headache, amaurosis fugax, motor weakness, sensory deficit, vertigo/spinning sensation, gait abnormalities, or tremors. ENT: No hearing loss, otalgia, otorrhea, rhinitis, rhinorrhea, hoarseness, or sore throat. CARDIOVASCULAR: Denies any exertional angina, dyspnea on exertion, PULMONARY: Denies any shortness of breath, cough, GASTROINTESTINAL: Denies any type of dysphagia to either liquids or solids. Denies nausea, vomiting, pyrosis, early satiety, abdominal pain, diarrhea, constipation, or changes in stool consistency or caliber. Denies coffee-ground emesis, hematemesis, hematochezia, or melanotic stools. DERMATOLOGIC: Denies rashes or pruritus. PSYCHIATRIC: Denies any suicidal or homicidal ideation. Denies hallucinations. PHYSICAL EXAM GENERAL APPEARANCE: The patient is awake, alert, and oriented, in no acute cardiopulmonary distress. NEUROLOGICAL: Cranial nerves II-XII grossly intact. Motor is 5/5 in bilateral upper and lower extremities proximal to distal. No sensory deficits. HEENT: Face is symmetric. Pupils are equal and reactive. Extraocular movements are intact. NECK: Supple. No JVD. No thyromegaly. No submental, submandibular, pre- /postauricular, occipital or supraclavicular lymphadenopathy. CHEST: Normal chest expansion. No Telemetry. LUNGS: Absence of any rales, rhonchi or any wheezing. CARDIOVASCULAR: Regular. S1 and S2 normal. No appreciable rubs, murmurs or gallops. ABDOMEN: Soft, nontender, and nondistended. There is no rebound, voluntary guarding, or rigidity. : Deferred. No Rosa. EXTREMITIES: Non-edematous and not cyanotic. No clubbing. Good capillary refill. SKIN: No skin breakdown. Vital Signs (last 8hr) Date Time Temp Pulse Resp B/P (MAP) Pulse Ox O2 Delivery O2 Flow Rate FiO2 10/18/24 11:19 98.4 75 20 128/68 98 Room Air 10/18/24 07:36 97.5 79 18 141/74 98 Room Air LABS: Laboratory: Test 10/18/24 11:32 10/18/24 03:31 Range/Units Whole Blood Glucose 167 #H 70-110 MG/DL White Blood Count 15.0 H 4.8-10.8 K/uL Red Blood Count 3.52 L 4.00-5.50 MIL/uL Hemoglobin 10.2 L 12.0-16.0 g/dL Hematocrit 31.7 L 36-48 % Mean Corpuscular Volume 90.1 79-99 fL Mean Corpuscular Hemoglobin 29.0 27.0-33.0 pg Mean Corpuscular Hemoglobin Concent 32.2 32.0-36.0 g/dL Red Cell Distribution Width 17.3 H 11.0-15.5 % Platelet Count 233 130-400 K/uL Mean Platelet Volume 10.3 7.5-10.5 fL Immature Granulocyte % (Auto) 3.1 H 0-1 % Neutrophils (%) (Auto) 73.0 40.0-77.0 % Lymphocytes (%) (Auto) 13.8 L 21.0-51.0 % Monocytes (%) (Auto) 7.6 3.0-13.0 % Eosinophils (%) (Auto) 2.1 0.0-8.0 % Basophils (%) (Auto) 0.4 0.0-5.0 % Neutrophils # (Auto) 10.9 H 1.8-7.7 K/uL Lymphocytes # (Auto) 2.1 1.0-4.8 K/uL Monocytes # (Auto) 1.1 H 0.1-1.0 K/uL Eosinophils # (Auto) 0.31 0.00-0.70 K/uL Basophils # (Auto) 0.06 0.00-0.20 K/uL Absolute Immature Granulocyte (auto 0.47 0-1 K/uL Nucleated Red Blood Cells 0.7 H 0.0-0.19 % Sodium Level 138 136-145 mmol/L Potassium Level 3.6 3.5-5.1 mmol/L Chloride Level 104 101-111 mmol/L Carbon Dioxide Level 29 21-32 mmol/L Blood Urea Nitrogen 14 7-18 mg/dL Creatinine 0.7 0.5-1.0 mg/dL Glomerular Filtration Rate Calc 88 >90 mL/min Random Glucose 122 H 70-105 mg/dL Total Calcium 7.6 L 8.5-10.1 mg/dL Total Bilirubin 0.9 0.2-1.0 mg/dL Aspartate Amino Transf (AST/SGOT) 34 10-37 U/L Alanine Aminotransferase (ALT/SGPT) 15 12-78 U/L Alkaline Phosphatase 59 50-136 U/L Total Protein 5.3 L 6.0-8.3 g/dL Albumin 2.3 L 3.5-5.0 g/dL Current Medications Medications (Trade) Dose Ordered Sig/Rashad Route PRN Reason Start Time Stop Time Status Last Admin Dose Admin Acetaminophen (TYLenol 325MG TAB) 650 mg Q4H PRN PO Temp >38.3C(AFTER EXTUBATION) 10/11/24 09:00 11/10/24 08:59 Acetaminophen (TYLenol 325MG TAB) 650 mg Q6H PRN PO MILD PAIN (1-3) 10/11/24 09:00 11/10/24 08:59 10/18/24 01:55 650 MG Acetaminophen (TYLenol 325MG TAB) 650 mg Q6H PRN PO TEMPERATURE GREATER THAN 101.5 10/05/24 23:30 10/14/24 09:10 DC 10/10/24 06:06 650 MG Acetaminophen (TYLenol 650MG SUPPOSITORY) 650 mg Q4H PRN RC Temp >38.3C WHILE INTUBATED 10/11/24 09:00 11/10/24 08:59 Acetaminophen (acetaMINOPHEN) 1,000 mg Q6H6 IV 10/11/24 12:00 10/12/24 11:59 DC 10/12/24 05:06 1,000 MG Albumin Human 250 ml @ 0 mls/hr AD PRN IV IF HEMODYNAMICALLY UNSTABLE 10/11/24 09:00 10/11/24 23:20 DC 10/11/24 23:20 250 MLS/HR Aminocaproic Acid 68589 mg/Sodium Chloride 310 ml @ 25 mls/hr AD IV 10/11/24 09:00 10/11/24 08:54 DC Aminocaproic Acid 73954 mg/Sodium Chloride 480 ml @ 0 mls/hr AD PRN IV BLEEDING CONTROL 10/11/24 07:00 11/10/24 06:59 Amiodarone HCl (pacERONE 200MG) 200 mg DAILY PO 10/13/24 09:00 11/12/24 08:59 10/18/24 09:54 200 MG Amiodarone HCl 150 mg/Dextrose 103 ml @ 618 mls/hr ONCE IV 10/11/24 12:00 10/11/24 12:09 DC 10/11/24 11:57 618 MLS/HR Amiodarone HCl 360 mg/Dextrose 207.2 ml @ 33.3 mls/hr AD IV 10/11/24 12:00 10/12/24 19:18 DC 10/11/24 12:04 33.3 MLS/HR Amiodarone HCl 540 mg/Dextrose 310.8 ml @ 16.7 mls/hr [id number] IV 10/11/24 12:00 11/10/24 11:59 10/11/24 18:20 16.7 MLS/HR Aspirin (Aspirin 81mg Chew Tab) 81 mg DAILY PO 10/06/24 09:00 11/05/24 08:59 10/18/24 09:55 81 MG Atorvastatin Calcium (LIPItor 20MG) 20 mg HS PO 10/08/24 21:00 10/11/24 08:37 DC 10/10/24 20:55 20 MG Atorvastatin Calcium (LIPItor 20MG) 40 mg HS PO 10/11/24 21:00 10/14/24 09:11 DC 10/13/24 20:32 40 MG Atorvastatin Calcium (LIPItor 40MG) 40 mg HS PO 10/14/24 21:00 11/10/24 20:59 10/17/24 20:28 40 MG Calcium Gluconate 1 gm/Sodium Chloride 60 ml @ 200 mls/hr AD PRN IV HYPOCALCEMIA 10/11/24 09:00 11/10/24 08:59 10/13/24 17:20 200 MLS/HR Cefazolin Sodium (Ancef) 2 gm ONCALL PRN IVP SURGERY 10/10/24 12:00 10/12/24 11:59 DC Cefazolin Sodium (Ancef) 2 gm Q8H IVPB 10/11/24 14:00 10/12/24 06:01 DC 10/12/24 06:21 2 GM Clopidogrel Bisulfate (plaVIX 75MG) 75 mg DAILY PO 10/12/24 09:00 11/11/24 08:59 10/18/24 09:55 75 MG Cyclobenzaprine HCl (Cyclobenzaprine HCl) 5 mg TID PRN PO MUSCLE SPASMS 10/10/24 14:30 10/11/24 08:37 DC Dexmedetomidine/ Sodium Chloride (PRECEdex 400MCG/ 100ML-NS) 400 mcg PROTOCOL IV 10/11/24 09:00 10/12/24 08:59 DC Dextrose (D50w) 50 ml AD PRN IV HYPOGLYCEMIA PROTOCOL 10/11/24 09:00 10/13/24 07:52 DC Dextrose (D50w) 50 ml AD PRN IV HYPOGLYCEMIA PROTOCOL 10/11/24 15:00 11/10/24 14:59 Docusate Sodium (COLace 100MG CAP) 100 mg BID PO 10/12/24 09:00 10/17/24 10:46 DC 10/16/24 09:01 100 MG Docusate Sodium (COLace 100MG CAP) 100 mg BID PRN PO CONSTIPATION 10/17/24 11:00 11/11/24 08:59 Enoxaparin Sodium (Lovenox) 30 mg DAILY SQ 10/14/24 09:00 10/11/24 14:00 DC Epinephrine HCl 10 mg/Sodium Chloride 250 ml @ 7.716 mls/ hr AD PRN IV POST-OP CARDIOVASCULAR ORDERS 10/11/24 09:00 10/16/24 08:59 DC Epinephrine HCl 10 mg/Sodium Chloride 250 ml @ 0 mls/hr AD PRN IV TITRATE 10/11/24 07:00 10/11/24 09:01 DC Famotidine (Pepcid 20mg Vial) 20 mg BID IV 10/11/24 09:00 10/11/24 09:03 DC Famotidine (Pepcid 20mg Vial) 20 mg Q24H IV 10/11/24 09:30 11/10/24 08:59 10/18/24 09:54 20 MG Folic Acid (FOLic ACID 1 MG TABLET) 1 mg DAILY PO 10/15/24 21:00 11/14/24 20:59 10/18/24 09:54 1 MG Furosemide (LASix 20MG TAB) 20 mg Q12H PO 10/13/24 09:00 11/12/24 08:59 10/18/24 09:56 20 MG Furosemide (LASix 20MG VIAL) 20 mg Q12H IV 10/12/24 09:00 10/13/24 08:59 DC 10/12/24 21:18 20 MG Glucagon (Glucagon 1mg Kit) 1 mg AD PRN IM HYPOGLYCEMIA PROTOCOL 10/11/24 09:00 10/13/24 07:52 DC Glucagon (Glucagon 1mg Kit) 1 mg AD PRN IM HYPOGLYCEMIA PROTOCOL 10/11/24 15:00 11/10/24 14:59 Heparin Sodium (Porcine) (HEParin 5,000 UNIT VIAL) *calculation based on ACTUAL B... AD PRN IV HEPARIN PROTOCOL 10/06/24 07:30 10/10/24 08:27 DC 10/06/24 07:19 3,877.5 UNIT Heparin Sodium (Porcine) (HEParin 5,000 UNIT VIAL) 5,000 unit BID SQ 10/06/24 09:00 10/06/24 06:29 DC Heparin Sodium/ Dextrose 250 ml @ 0 mls/hr PROTOCOL IV 10/11/24 16:00 10/11/24 15:24 DC Heparin Sodium/ Dextrose 250 ml @ 0 mls/hr PROTOCOL IV 10/11/24 16:00 10/12/24 19:18 DC 10/11/24 16:14 8.7 MLS/HR Heparin Sodium/ Dextrose 250 ml @ 0 mls/hr Q6H IV 10/10/24 09:00 10/10/24 08:26 DC Heparin Sodium/ Dextrose 250 ml @ 0 mls/hr Q6H IV 10/06/24 07:30 10/10/24 08:17 DC 10/08/24 14:20 0 MLS/HR Insulin Human Regular (humuLIN R 100 UNIT/ML 3ML) INSULIN SLIDING SCAL... ACHS SQ 10/13/24 11:30 11/12/24 11:29 10/17/24 20:52 2 UNIT Insulin Human Regular (humuLIN R 100 UNIT/ML 3ML) INSULIN SLIDING SCAL... ACHS SQ 10/06/24 07:30 10/11/24 08:37 DC Insulin Human Regular 100 unit/ Sodium Chloride 100 ml @ 0 mls/hr AD IV 10/11/24 09:00 10/13/24 08:59 DC 10/11/24 23:19 3 MLS/HR Iron Sucrose (VenoFER) 200 mg AD IV 10/14/24 18:30 10/14/24 18:34 DC Iron Sucrose (VenoFER) 200 mg Q24H IV 10/14/24 19:00 10/16/24 19:01 DC 10/16/24 18:32 200 MG Lactulose (Constulose 20gm/ 30ml Udcup) 20 gm BID PRN PO CONSTIPATION 10/11/24 09:00 11/10/24 08:59 Levothyroxine Sodium (SYNTHroid 100MCG TAB) 100 mcg SYN PO 10/09/24 06:30 11/08/24 06:29 10/18/24 06:05 100 MCG Lidocaine HCl/ Dextrose 250 ml @ 0 mls/hr AD PRN IV TITRATE 10/11/24 11:00 10/12/24 19:18 DC 10/12/24 14:44 7.5 MLS/HR Magnesium Hydroxide (Milk Of Magnesium 30ml) 30 ml DAILY PRN PO CONSTIPATION 10/11/24 09:00 11/10/24 08:59 Magnesium Sulfate 50 ml @ 12.5 mls/hr AD PRN IV MAG LEVEL LESS THAN 2.0 10/11/24 09:00 11/10/24 08:59 10/12/24 23:52 12.5 MLS/HR Magnesium Sulfate 50 ml @ 0 mls/hr PROTOCOL PRN IV h 10/05/24 23:30 10/11/24 08:37 DC Metoprolol Tartrate (loprESSOR) 12.5 mg BID PO 10/07/24 09:00 10/11/24 08:37 DC 10/11/24 06:32 12.5 MG Metoprolol Tartrate (loprESSOR) 12.5 mg BID PO 10/13/24 09:00 11/12/24 08:59 10/18/24 09:55 12.5 MG Morphine Sulfate (morPHINE 2MG SYG) 0.5 mg Q2H PRN IV MODERATE PAIN (4-6) 10/11/24 09:00 10/12/24 08:59 DC Morphine Sulfate (morPHINE 2MG SYG) 1 mg Q2H PRN IV SEVERE PAIN (7-10) 10/11/24 09:00 10/16/24 11:59 DC Nitroglycerin (Nitroglycerin 1gm Oint) 0.5 inch Q8H TD 10/05/24 23:30 10/11/24 08:37 DC 10/10/24 22:37 0.5 INCH Nitroglycerin (Nitrostat) 0.4 mg AD PRN SL CHEST PAIN 10/05/24 22:30 10/11/24 08:37 DC Nitroglycerin/ Dextrose 0 ml @ 0 mls/hr AD IV 10/11/24 09:00 10/14/24 08:59 DC 10/11/24 12:00 0 MLS/HR Norepinephrine Bitartrate 250 ml @ 0 mls/hr AD PRN IV TITRATE 10/11/24 07:00 10/11/24 09:03 DC Norepinephrine Bitartrate 250 ml @ 0 mls/hr AD PRN IV POST-OP CARDIOVASCULAR ORDERS 10/11/24 09:00 11/10/24 08:59 10/12/24 08:08 11.3 MLS/HR Ondansetron HCl (zoFRAN 4MG INJ) 4 mg Q6H PRN IV NAUSEA/VOMITING 10/11/24 09:00 11/10/24 08:59 10/13/24 08:20 4 MG Ondansetron HCl (zoFRAN 4MG INJ) 4 mg Q6H PRN IV NAUSEA/VOMITING 10/05/24 23:30 10/11/24 08:37 DC Pantoprazole Sodium (PROTonix 40MG TAB) 40 mg DAILY PO 10/06/24 09:00 10/11/24 08:37 DC 10/10/24 09:00 40 MG Pharmacy Profile Note (Pharmacy Communication) 1 each ONCE MISC 10/07/24 17:30 10/08/24 07:12 DC 10/07/24 23:37 1 EACH Potassium Phosphate 250 ml @ 42 mls/hr AD PRN IV LOW PHOS LEVEL 10/11/24 09:00 11/10/24 08:59 Potassium Chloride 100 ml @ 100 mls/hr AD PRN IV HYPOKALEMIA 10/11/24 09:00 11/10/24 08:59 10/16/24 09:02 100 MLS/HR Potassium Chloride 100 ml @ 100 mls/hr AD PRN IV POTASSIUM PROTOCOL 10/05/24 23:30 10/11/24 08:37 DC Potassium Chloride (K-Dur/Klor-Con 20meq) 20 meq AD PRN PO POTASSIUM PROTOCOL 10/05/24 23:30 10/11/24 08:37 DC Potassium Chloride (KCl 10% Elixir 20meq/15ml) 20 meq AD PRN PO POTASSIUM PROTOCOL 10/14/24 09:00 11/13/24 08:59 10/18/24 09:54 20 MEQ Potassium Chloride (KCl 10% Elixir 20meq/15ml) 20 meq AD PRN PO POTASSIUM PROTOCOL 10/05/24 23:30 10/11/24 08:37 DC 10/09/24 21:00 20 MEQ Propofol 100 ml @ 0 mls/hr AD PRN IV SEDATION 10/11/24 09:00 10/15/24 08:59 DC Sodium Bicarbonate (Sodium Bicarb 50meq 50ml Vial) 50 meq AD PRN IV OTHER[SEE DOSING INSTRUCTIONS] 10/11/24 09:00 10/14/24 08:59 DC 10/11/24 18:14 50 MEQ Sodium Chloride 500 ml @ 0 mls/hr AD IV 10/11/24 09:00 11/10/24 08:59 Sodium Chloride 500 ml @ 0 mls/hr Q0M IV 10/06/24 21:30 10/11/24 08:37 DC Sodium Chloride 1,000 ml @ 10 mls/hr ONCE IV 10/11/24 09:00 10/11/24 08:52 DC Sodium Chloride (NS Flush 10ml) 10 ml Q8H IVP 10/07/24 17:30 11/06/24 17:29 10/18/24 09:57 10 ML Sodium Chloride (NS Flush 10ml) 10 ml Q8H PRN IVP IV LINE FLUSH 10/11/24 09:00 11/10/24 08:59 Tramadol HCl (UltRAM) 25 mg Q6H PRN PO MODERATE PAIN (4-6) 10/10/24 14:30 10/11/24 08:37 DC 10/10/24 16:13 25 MG Tramadol HCl (UltRAM) 25 mg Q6H PRN PO MODERATE PAIN (4-6) 10/11/24 09:00 10/16/24 08:59 DC Tramadol HCl (UltRAM) 50 mg Q6H PRN PO SEVERE PAIN (7-10) 10/11/24 09:00 10/16/24 08:59 DC 10/14/24 08:29 50 MG Vasopressin 40 units/Sodium Chloride 40 ml @ 0 mls/hr PROTOCOL IV 10/11/24 11:00 11/10/24 10:59 Vitamin B Complex (Vitamin B-12) 1,000 mcg DAILY PO 10/15/24 21:00 11/14/24 20:59 10/18/24 09:54 1,000 MCG DIAGNOSTICS / RADIOLOGY: [ There is pseudoaneurysm in the left groin measuring 1.7 x 2.3 cm. Neck is 6 mm. This corresponds with the findings on the GI bleeding scan. Left leg arterial Doppler evaluation shows biphasic waveforms present throughout with the exception of the dorsalis pedis which is monophasic. Flow velocities are preserved throughout, also with the exception of the dorsalis pedis which shows moderate velocity reduction. IMPRESSION: 1. 1.7 x 2.3 cm pseudoaneurysm left groin. 2. Minimal arterial inflow occlusion dorsalis pedis artery, remainder of the left lower extremity appears unremarkable. 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 PLAN: Downgraded from icu to pccu Bleeding scan revealed no GI bleed but did show left groin crease her leak which led to arterial duplex of left groin and showed pseudoaneurysm cardiology is aware doing pressure dressing there. Endoscopy was cancer as there was no signs of bleeding in the GI tract. Transfuse RBC if Hb<7 Incentive spirometry Avoid nephrotoxic agents when possible Renally dose all medications when possible Monitor intake and output Weight patient daily Monitor patient's labs Glucometer checks a.c. and HS Humulin R sliding scale Follow Cardiothoracic recommendations and Cardiology recommendations Maintain electrolyte balance OSIRIS ANDERSON MD Oct 18, 2024 13:26
--- NOTE | 2024-10-18 15:11 | PN ---
Ms. Mac is a 79-year-old female that was seen and examined today on 10/05/2024. Patient is a good historian and personal health. Patient states that she came to the emergency department with a chief complaint of bilateral chest wall pain closer to the axilla and pain also radiates to the back. Onset was 9:30 a.m.. Character is described as throbbing. Symptoms are aggravated with palpation and movement. Symptoms are not alleviated with a chiropractic adjustment in fact symptoms became worse after a chiropractic adjustment. There was no alleviating factors Duration of pain is on and off. Patient denies any associated shortness of breath, nausea, vomiting, headache, dizziness. Patient with anemia and thrombocytopenia. Patient complaining of pain at the site of the surgery. There is a chest tube in place. Patient is Rosa catheter in place. There is no obvious bleeding. Patient was found to have pseudoaneurysm PE General Appearance: Alert, Oriented X3, Cooperative, No acute distress HEENT: Atraumatic, EOMI, Mucous membr. moist/pink Respiratory: Clear to auscultation, Normal air movement, NL respiratory effort Cardiovascular: Regular rate, Regular rhythm, Normal S1, Normal S2 Abdominal: Normal bowel sounds, Soft, No tenderness Extremities: No edema Skin: No significant lesion Neuro: Normal speech, Strength at 5/5 X4 ext, Sensation intact, Cranial nerves 3-12 NL Psych/Mental Status: Mental status NL, Mood NL, Thoughts/Content NL ASSESSMENT: [ 1. Coronary artery disease status post surgery 2. Iron deficiency anemia Post blood transfusion multiple times 3. Thrombocytopenia. Platelet count is corrected at this time 4. Chronic renal insufficiency 5. Hypertension 6. Hypothyroidism 7. Postoperative A-fib with RVR with the patient on amiodarone 8. Pseudoaneurysm Plan 1. Patient with iron deficiency anemia. This patient should be investigated by GI. 2. There was hypersegmented neutrophils. This patient to Continue on folic acid 1 mg p.o. daily and vitamin B12 1000 mcg p.o. daily. 3. Patient was found to have iron deficiency anemia. This patient to be started on IV iron while in the hospital. Then the patient will need oral supplement every other day for at least 6 months. 4. Direct Shayla was negative. There is no need for tapering dose of prednisone 5. Continue care as per surgery Vitals/Labs Vital Signs Date Time Temp Pulse Resp B/P (MAP) Pulse Ox O2 Delivery O2 Flow Rate FiO2 10/18/24 11:19 98.4 75 20 128/68 98 Room Air 10/17/24 20:30 0 21 Laboratory Tests 10/18/24 03:31 Medications Current Medications Morphine Sulfate 2 mg ONCE ONCE IVP Last administered on 10/05/24at 22:22; Start 10/05/24 at 22:30; Stop 10/05/24 at 22:31; Status DC Ketorolac Tromethamine 15 mg ONCE ONCE IV Last administered on 10/05/24at 23:34; Start 10/05/24 at 22:30; Stop 10/05/24 at 22:31; Status DC Nitroglycerin 0.4 mg AD PRN SL; Start 10/05/24 at 22:30; Stop 10/11/24 at 08:37; Status DC Aspirin 162 mg ONCE ONCE PO Last administered on 10/05/24at 23:32; Start 10/05/24 at 23:30; Stop 10/05/24 at 23:31; Status DC Aspirin 81 mg DAILY PO Last administered on 10/18/24at 09:55; Start 10/06/24 at 09:00; Stop 11/05/24 at 08:59 Nitroglycerin 0.5 inch Q8H TD Last administered on 10/10/24at 22:37; Start 10/05/24 at 23:30; Stop 10/11/24 at 08:37; Status DC Ondansetron HCl 4 mg Q6H PRN IV; Start 10/05/24 at 23:30; Stop 10/11/24 at 08:37; Status DC Heparin Sodium (Porcine) 5,000 unit BID SQ; Start 10/06/24 at 09:00; Stop 10/06/24 at 06:29; Status DC Pantoprazole Sodium 40 mg DAILY PO Last administered on 10/10/24at 09:00; Start 10/06/24 at 09:00; Stop 10/11/24 at 08:37; Status DC Acetaminophen 650 mg Q6H PRN PO Last administered on 10/10/24at 06:06; Start 10/05/24 at 23:30; Stop 10/14/24 at 09:10; Status DC Insulin Human Regular INSULIN SLIDING SCAL... ACHS SQ; Start 10/06/24 at 07:30; Stop 10/11/24 at 08:37; Status DC Potassium Chloride 100 ml @ 100 mls/hr AD PRN IV; Start 10/05/24 at 23:30; Stop 10/11/24 at 08:37; Status DC Potassium Chloride 20 meq AD PRN PO Last administered on 10/09/24at 21:00; Start 10/05/24 at 23:30; Stop 10/11/24 at 08:37; Status DC Potassium Chloride 20 meq AD PRN PO; Start 10/05/24 at 23:30; Stop 10/11/24 at 08:37; Status DC Magnesium Sulfate 50 ml @ 0 mls/hr PROTOCOL PRN IV; Start 10/05/24 at 23:30; Stop 10/11/24 at 08:37; Status DC Heparin Sodium (Porcine) *calculation based on ACTUAL B... AD PRN IV Last administered on 10/06/24at 07:19; Start 10/06/24 at 07:30; Stop 10/10/24 at 08:27; Status DC Heparin Sodium/ Dextrose 250 ml @ 0 mls/hr Q6H IV Last administered on 10/08/24at 14:20; Start 10/06/24 at 07:30; Stop 10/10/24 at 08:17; Status DC Atorvastatin Calcium 40 mg ONCE ONCE PO Last administered on 10/06/24at 21:22; Start 10/06/24 at 21:30; Stop 10/06/24 at 21:31; Status DC Clopidogrel Bisulfate 75 mg ONCE ONCE PO Last administered on 10/06/24at 21:22; Start 10/06/24 at 21:30; Stop 10/06/24 at 21:31; Status DC Metoprolol Tartrate 12.5 mg BID PO Last administered on 10/11/24at 06:32; Start 10/07/24 at 09:00; Stop 10/11/24 at 08:37; Status DC Sodium Chloride 500 ml @ 0 mls/hr Q0M IV; Start 10/06/24 at 21:30; Stop 10/11/24 at 08:37; Status DC Lidocaine HCl 20 ml STK-MED ONCE .ROUTE; Start 10/07/24 at 16:23; Stop 10/07/24 at 16:23; Status DC Iohexol 75 ml STK-MED ONCE IV; Start 10/07/24 at 16:23; Stop 10/07/24 at 16:23; Status DC Heparin Sodium (Porcine) 10,000 unit STK-MED ONCE .ROUTE; Start 10/07/24 at 16:23; Stop 10/07/24 at 16:23; Status DC Heparin Sodium/ Sodium Chloride 1,000 ml @ As Directed STK-MED ONCE IV; Start 10/07/24 at 16:23; Stop 10/07/24 at 16:23; Status DC Nitroglycerin 50 mg STK-MED ONCE .ROUTE; Start 10/07/24 at 16:23; Stop 10/07/24 at 16:23; Status DC Fentanyl Citrate 100 mcg STK-MED ONCE .ROUTE; Start 10/07/24 at 16:24; Stop 10/07/24 at 16:24; Status DC Midazolam HCl 2 mg STK-MED ONCE .ROUTE; Start 10/07/24 at 16:24; Stop 10/07/24 at 16:24; Status DC Nicardipine HCl 25 mg STK-MED ONCE IV; Start 10/07/24 at 16:24; Stop 10/07/24 at 16:24; Status DC Sodium Chloride 10 ml Q8H IVP Last administered on 10/18/24at 09:57; Start 10/07/24 at 17:30; Stop 11/06/24 at 17:29 Pharmacy Profile Note 1 each ONCE MISC Last administered on 10/07/24at 23:37; Start 10/07/24 at 17:30; Stop 10/08/24 at 07:12; Status DC Atorvastatin Calcium 20 mg HS PO Last administered on 10/10/24at 20:55; Start 10/08/24 at 21:00; Stop 10/11/24 at 08:37; Status DC Levothyroxine Sodium 100 mcg SYN PO Last administered on 10/18/24at 06:05; Start 10/09/24 at 06:30; Stop 11/08/24 at 06:29 Heparin Sodium/ Dextrose 250 ml @ 0 mls/hr Q6H IV; Start 10/10/24 at 09:00; Stop 10/10/24 at 08:26; Status DC Cefazolin Sodium 2 gm ONCALL PRN IVP; Start 10/10/24 at 12:00; Stop 10/12/24 at 11:59; Status DC Tramadol HCl 25 mg Q6H PRN PO Last administered on 10/10/24at 16:13; Start 10/10/24 at 14:30; Stop 10/11/24 at 08:37; Status DC Cyclobenzaprine HCl 5 mg TID PRN PO; Start 10/10/24 at 14:30; Stop 10/11/24 at 08:37; Status DC Epinephrine HCl 10 mg/Sodium Chloride 250 ml @ 0 mls/hr AD PRN IV; Start 10/11/24 at 07:00; Stop 10/11/24 at 09:01; Status DC Norepinephrine Bitartrate 250 ml @ 0 mls/hr AD PRN IV; Start 10/11/24 at 07:00; Stop 10/11/24 at 09:03; Status DC Aminocaproic Acid 39069 mg/Sodium Chloride 480 ml @ 0 mls/hr AD PRN IV; Start 10/11/24 at 07:00; Stop 11/10/24 at 06:59 Cefazolin Sodium 1 gm STK-MED ONCE .ROUTE; Start 10/11/24 at 06:50; Stop 10/11/24 at 06:51; Status DC Heparin Sodium/ Sodium Chloride 500 ml @ As Directed STK-MED ONCE IV; Start 10/11/24 at 06:51; Stop 10/11/24 at 06:51; Status DC Papaverine HCl 60 mg STK-MED ONCE .ROUTE; Start 10/11/24 at 06:51; Stop 10/11/24 at 06:51; Status DC Cefazolin Sodium 2 gm STK-MED ONCE .ROUTE; Start 10/11/24 at 06:53; Stop 10/11/24 at 06:54; Status DC Sodium Chloride 1,000 ml @ As Directed STK-MED ONCE IV; Start 10/11/24 at 06:53; Stop 10/11/24 at 06:54; Status DC Protamine Sulfate 250 mg STK-MED ONCE IV; Start 10/11/24 at 07:56; Stop 10/11/24 at 07:56; Status DC Lidocaine HCl 100 mg STK-MED ONCE .ROUTE; Start 10/11/24 at 07:56; Stop 10/11/24 at 07:56; Status DC Heparin Sodium (Porcine) 10,000 unit STK-MED ONCE .ROUTE; Start 10/11/24 at 07:56; Stop 10/11/24 at 07:56; Status DC Epinephrine HCl 1 mg STK-MED ONCE .ROUTE; Start 10/11/24 at 07:56; Stop 10/11/24 at 07:56; Status DC Sodium Bicarbonate 200 ml @ As Directed STK-MED ONCE .ROUTE; Start 10/11/24 at 07:56; Stop 10/11/24 at 07:56; Status DC Norepinephrine Bitartrate 4 mg STK-MED ONCE IV; Start 10/11/24 at 07:56; Stop 10/11/24 at 07:56; Status DC Fentanyl Citrate 1,000 mcg STK-MED ONCE IJ; Start 10/11/24 at 07:56; Stop 10/11/24 at 07:57; Status DC Propofol 200 mg STK-MED ONCE IV; Start 10/11/24 at 07:57; Stop 10/11/24 at 07:57; Status DC Midazolam HCl 2 mg STK-MED ONCE .ROUTE; Start 10/11/24 at 07:57; Stop 10/11/24 at 07:57; Status DC Rocuronium Guys 50 mg STK-MED ONCE .ROUTE; Start 10/11/24 at 07:57; Stop 10/11/24 at 07:57; Status DC Ketamine HCl 50 mg STK-MED ONCE .ROUTE; Start 10/11/24 at 07:57; Stop 10/11/24 at 07:58; Status DC Nitroglycerin/ Dextrose 1 ml @ As Directed STK-MED ONCE .ROUTE; Start 10/11/24 at 08:27; Stop 10/11/24 at 08:27; Status DC Atorvastatin Calcium 40 mg HS PO Last administered on 10/13/24at 20:32; Start 10/11/24 at 21:00; Stop 10/14/24 at 09:11; Status DC Acetaminophen 1,000 mg Q6H6 IV Last administered on 10/12/24at 05:06; Start 10/11/24 at 12:00; Stop 10/12/24 at 11:59; Status DC Aspirin 81 mg ONCE ONCE NG; Start 10/11/24 at 12:00; Stop 10/11/24 at 08:42; Status DC Docusate Sodium 100 mg BID PO Last administered on 10/16/24at 09:01; Start 10/12/24 at 09:00; Stop 10/17/24 at 10:46; Status DC Lactulose 20 gm BID PRN PO; Start 10/11/24 at 09:00; Stop 11/10/24 at 08:59 Furosemide 20 mg Q12H PO Last administered on 10/18/24at 09:56; Start 10/13/24 at 09:00; Stop 11/12/24 at 08:59 Furosemide 20 mg Q12H IV Last administered on 10/12/24at 21:18; Start 10/12/24 at 09:00; Stop 10/13/24 at 08:59; Status DC Enoxaparin Sodium 30 mg DAILY SQ; Start 10/14/24 at 09:00; Stop 10/11/24 at 14:00; Status DC Metoprolol Tartrate 12.5 mg BID PO Last administered on 10/18/24at 09:55; Start 10/13/24 at 09:00; Stop 11/12/24 at 08:59 Magnesium Hydroxide 30 ml DAILY PRN PO; Start 10/11/24 at 09:00; Stop 11/10/24 at 08:59 Dexmedetomidine/ Sodium Chloride 400 mcg PROTOCOL IV; Start 10/11/24 at 09:00; Stop 10/12/24 at 08:59; Status DC Acetaminophen 650 mg Q6H PRN PO Last administered on 10/18/24at 01:55; Start 10/11/24 at 09:00; Stop 11/10/24 at 08:59 Sodium Chloride 1,000 ml @ 10 mls/hr ONCE IV; Start 10/11/24 at 09:00; Stop 10/11/24 at 08:52; Status DC Sodium Chloride 10 ml Q8H PRN IVP; Start 10/11/24 at 09:00; Stop 11/10/24 at 08:59 Morphine Sulfate 0.5 mg Q2H PRN IV; Start 10/11/24 at 09:00; Stop 10/12/24 at 08:59; Status DC Morphine Sulfate 1 mg Q2H PRN IV; Start 10/11/24 at 09:00; Stop 10/16/24 at 11:59; Status DC Acetaminophen 650 mg Q4H PRN RC; Start 10/11/24 at 09:00; Stop 11/10/24 at 08:59 Ondansetron HCl 4 mg Q6H PRN IV Last administered on 10/13/24at 08:20; Start 10/11/24 at 09:00; Stop 11/10/24 at 08:59 Sodium Chloride 500 ml @ 0 mls/hr AD IV; Start 10/11/24 at 09:00; Stop 11/10/24 at 08:59 Nitroglycerin/ Dextrose 0 ml @ 0 mls/hr AD IV Last administered on 10/11/24at 12:00; Start 10/11/24 at 09:00; Stop 10/14/24 at 08:59; Status DC Propofol 100 ml @ 0 mls/hr AD PRN IV; Start 10/11/24 at 09:00; Stop 10/15/24 at 08:59; Status DC Norepinephrine Bitartrate 250 ml @ 0 mls/hr AD PRN IV Last administered on 10/12/24at 08:08; Start 10/11/24 at 09:00; Stop 11/10/24 at 08:59 Epinephrine HCl 10 mg/Sodium Chloride 250 ml @ 7.716 mls/ hr AD PRN IV; Start 10/11/24 at 09:00; Stop 10/16/24 at 08:59; Status DC Aminocaproic Acid 47942 mg/Sodium Chloride 310 ml @ 25 mls/hr AD IV; Start 10/11/24 at 09:00; Stop 10/11/24 at 08:54; Status DC Calcium Gluconate 1 gm/Sodium Chloride 60 ml @ 200 mls/hr AD PRN IV Last administered on 10/13/24at 17:20; Start 10/11/24 at 09:00; Stop 11/10/24 at 08:59 Magnesium Sulfate 50 ml @ 12.5 mls/hr AD PRN IV Last administered on 10/12/24at 23:52; Start 10/11/24 at 09:00; Stop 11/10/24 at 08:59 Potassium Chloride 100 ml @ 100 mls/hr AD PRN IV Last administered on 10/16/24at 09:02; Start 10/11/24 at 09:00; Stop 11/10/24 at 08:59 Potassium Phosphate 250 ml @ 42 mls/hr AD PRN IV; Start 10/11/24 at 09:00; Stop 11/10/24 at 08:59 Albumin Human 250 ml @ 0 mls/hr AD PRN IV Last administered on 10/11/24at 23:20; Start 10/11/24 at 09:00; Stop 10/11/24 at 23:20; Status DC Acetaminophen 650 mg Q4H PRN PO; Start 10/11/24 at 09:00; Stop 11/10/24 at 08:59 Insulin Human Regular 100 unit/ Sodium Chloride 100 ml @ 0 mls/hr AD IV Last administered on 10/11/24at 23:19; Start 10/11/24 at 09:00; Stop 10/13/24 at 08:59; Status DC Cefazolin Sodium 2 gm Q8H IVPB Last administered on 10/12/24at 06:21; Start 10/11/24 at 14:00; Stop 10/12/24 at 06:01; Status DC Tramadol HCl 25 mg Q6H PRN PO; Start 10/11/24 at 09:00; Stop 10/16/24 at 08:59; Status DC Tramadol HCl 50 mg Q6H PRN PO Last administered on 10/14/24at 08:29; Start 10/11/24 at 09:00; Stop 10/16/24 at 08:59; Status DC Famotidine 20 mg BID IV; Start 10/11/24 at 09:00; Stop 10/11/24 at 09:03; Status DC Sodium Bicarbonate 50 meq AD PRN IV Last administered on 10/11/24at 18:14; Start 10/11/24 at 09:00; Stop 10/14/24 at 08:59; Status DC Dextrose 50 ml AD PRN IV; Start 10/11/24 at 09:00; Stop 10/13/24 at 07:52; Status DC Glucagon 1 mg AD PRN IM; Start 10/11/24 at 09:00; Stop 10/13/24 at 07:52; Status DC Sodium Chloride 1,000 ml @ 10 mls/hr ONCE ONCE IV Last administered on 10/11/24at 10:30; Start 10/11/24 at 09:00; Stop 10/14/24 at 09:10; Status DC Famotidine 20 mg Q24H IV Last administered on 10/18/24at 09:54; Start 10/11/24 at 09:30; Stop 11/10/24 at 08:59 Vasopressin 20 units STK-MED ONCE .ROUTE; Start 10/11/24 at 09:42; Stop 10/11/24 at 09:42; Status DC Ephedrine Sulfate 50 mg STK-MED ONCE .ROUTE; Start 10/11/24 at 09:42; Stop 10/11/24 at 09:43; Status DC Protamine Sulfate 250 mg STK-MED ONCE IV; Start 10/11/24 at 09:54; Stop 10/11/24 at 09:54; Status DC Protamine Sulfate 50 mg STK-MED ONCE .ROUTE; Start 10/11/24 at 09:54; Stop 10/11/24 at 09:54; Status DC Heparin Sodium (Porcine) 10,000 unit STK-MED ONCE .ROUTE; Start 10/11/24 at 09:54; Stop 10/11/24 at 09:54; Status DC Vasopressin 40 units/Sodium Chloride 40 ml @ 0 mls/hr PROTOCOL IV; Start 10/11/24 at 11:00; Stop 11/10/24 at 10:59 Lidocaine HCl/ Dextrose 250 ml @ 0 mls/hr AD PRN IV Last administered on 10/12/24at 14:44; Start 10/11/24 at 11:00; Stop 10/12/24 at 19:18; Status DC Lidocaine HCl/ Dextrose 250 ml @ As Directed STK-MED ONCE IV; Start 10/11/24 at 10:57; Stop 10/11/24 at 10:57; Status DC Amiodarone HCl 150 mg/Dextrose 103 ml @ 618 mls/hr ONCE IV Last administered on 10/11/24at 11:57; Start 10/11/24 at 12:00; Stop 10/11/24 at 12:09; Status DC Amiodarone HCl 360 mg/Dextrose 207.2 ml @ 33.3 mls/hr AD IV Last administered on 10/11/24at 12:04; Start 10/11/24 at 12:00; Stop 10/12/24 at 19:18; Status DC Amiodarone HCl 540 mg/Dextrose 310.8 ml @ 16.7 mls/hr [id number] IV Last administered on 10/11/24at 18:20; Start 10/11/24 at 12:00; Stop 11/10/24 at 11:59 Atropine Sulfate 1 mg STK-MED ONCE IVP; Start 10/11/24 at 12:42; Stop 10/11/24 at 12:42; Status DC Iohexol 35,000 mg STK-MED ONCE IV; Start 10/11/24 at 12:42; Stop 10/11/24 at 12:42; Status DC Heparin Sodium (Porcine) 10,000 unit STK-MED ONCE .ROUTE; Start 10/11/24 at 12:42; Stop 10/11/24 at 12:42; Status DC Heparin Sodium/ Sodium Chloride 1,000 ml @ As Directed STK-MED ONCE IV; Start 10/11/24 at 12:42; Stop 10/11/24 at 12:43; Status DC Nitroglycerin 50 mg STK-MED ONCE .ROUTE; Start 10/11/24 at 12:42; Stop 10/11/24 at 12:43; Status DC Lidocaine HCl 20 ml STK-MED ONCE .ROUTE; Start 10/11/24 at 12:43; Stop 10/11/24 at 12:43; Status DC Bivalirudin 250 mg STK-MED ONCE IV; Start 10/11/24 at 13:27; Stop 10/11/24 at 13:27; Status DC Iohexol 35,000 mg STK-MED ONCE IV; Start 10/11/24 at 13:34; Stop 10/11/24 at 13:34; Status DC Clopidogrel Bisulfate 300 mg STK-MED ONCE .ROUTE; Start 10/11/24 at 13:45; Stop 10/11/24 at 13:47; Status DC Clopidogrel Bisulfate 75 mg DAILY PO Last administered on 10/18/24at 09:55; Start 10/12/24 at 09:00; Stop 11/11/24 at 08:59 Heparin Sodium/ Dextrose 250 ml @ 0 mls/hr PROTOCOL IV Last administered on 10/11/24at 16:14; Start 10/11/24 at 16:00; Stop 10/12/24 at 19:18; Status DC Dextrose 50 ml AD PRN IV; Start 10/11/24 at 15:00; Stop 11/10/24 at 14:59 Glucagon 1 mg AD PRN IM; Start 10/11/24 at 15:00; Stop 11/10/24 at 14:59 Heparin Sodium/ Dextrose 250 ml @ 0 mls/hr PROTOCOL IV; Start 10/11/24 at 16:00; Stop 10/11/24 at 15:24; Status DC Cefazolin Sodium 2 gm STK-MED ONCE IVPB Last administered on 10/11/24at 08:30; Start 10/11/24 at 08:30; Stop 10/11/24 at 20:01; Status DC Cefazolin Sodium 1 gm STK-MED ONCE IRRIG Last administered on 10/11/24at 09:00; Start 10/11/24 at 09:00; Stop 10/11/24 at 20:01; Status DC Papaverine HCl 60 mg STK-MED ONCE IRRIG Last administered on 10/11/24at 09:00; Start 10/11/24 at 09:00; Stop 10/11/24 at 20:01; Status DC Heparin Sodium (Porcine) 5,000 unit STK-MED ONCE IRRIG Last administered on 10/11/24at 09:00; Start 10/11/24 at 09:00; Stop 10/11/24 at 20:01; Status DC Furosemide 20 mg ONCE ONCE IV; Start 10/12/24 at 02:30; Stop 10/12/24 at 02:31; Status DC Furosemide 20 mg STK-MED ONCE .ROUTE Last administered on 10/12/24at 02:20; Start 10/12/24 at 02:16; Stop 10/12/24 at 02:17; Status DC Albumin Human 250 ml @ As Directed STK-MED ONCE IV Last administered on 10/12/24at 21:19; Start 10/12/24 at 17:49; Stop 10/12/24 at 17:50; Status DC Amiodarone HCl 200 mg DAILY PO Last administered on 10/18/24at 09:54; Start 10/13/24 at 09:00; Stop 11/12/24 at 08:59 Insulin Human Regular INSULIN SLIDING SCAL... ACHS SQ Last administered on 10/17/24at 20:52; Start 10/13/24 at 11:30; Stop 11/12/24 at 11:29 Potassium Chloride 20 meq AD PRN PO Last administered on 10/18/24at 09:54; Start 10/14/24 at 09:00; Stop 11/13/24 at 08:59 Atorvastatin Calcium 40 mg HS PO Last administered on 10/17/24at 20:28; Start 10/14/24 at 21:00; Stop 11/10/24 at 20:59 Iron Sucrose 200 mg ONCE ONCE IV; Start 10/17/24 at 18:00; Stop 10/14/24 at 18:16; Status DC Folic Acid 1 mg DAILY PO Last administered on 10/18/24at 09:54; Start 10/15/24 at 21:00; Stop 11/14/24 at 20:59 Vitamin B Complex 1,000 mcg DAILY PO Last administered on 10/18/24at 09:54; Start 10/15/24 at 21:00; Stop 11/14/24 at 20:59 Iron Sucrose 200 mg AD IV; Start 10/14/24 at 18:30; Stop 10/14/24 at 18:34; Status DC Iron Sucrose 200 mg Q24H IV Last administered on 10/16/24at 18:32; Start 10/14/24 at 19:00; Stop 10/16/24 at 19:01; Status DC Furosemide 20 mg ONCE ONCE IV; Start 10/16/24 at 12:00; Stop 10/16/24 at 12:01; Status DC Docusate Sodium 100 mg BID PRN PO; Start 10/17/24 at 11:00; Stop 11/11/24 at 08:59 NIKHIL FLETCHER MD Oct 18, 2024 15:11
--- NOTE | 2024-10-18 15:32 | PN ---
"[facility] PROGRESS NOTE Date Patient Seen: Oct 18, 2024 Time of Visit: 15:30 Supervising Physician: md sanna Primary Care Physician: Maine Euceda MD Outpatient Specialists: Inpatient Consults: CV Surgery Dr Licona, Dr Ravi MD, BIS Attending physician|: Kali Carroll MD PROBLEM LIST: Multivessel CAD status post CABG x2 on 10/11/24 (Dr Licona) NSTEMI, POA, IABP rt femoral, removed 10/12/24 Cardiomyopathy with EF of 35-40% POA Postoperative AFib with RVR on amiodarone drip and lidocaine drip CKD stage IIIA, POA hyperglycemia in the presence of type 2 diabetes mellitus, POA Hypertension Hypothyroidism Raynaud's phenomenon GI bleed resolved INTERVAL HISTORY: Patient is day six status post CABG. During evaluation patient is sitting in a recliner next to her bed, she is comfortable, tolerating her diet well. She is currently hemodynamically stable, Patient is currently on room air, continues on Plavix. Most recent chest x-ray shows no acute cardiopulmonary processes. She continues on Lasix 20 milligrams b.i.d.. Of Note Possible left common femoral artery possible pseudoaneurysm. Cardiology aware Patient remains on PCCU status at this time, pending work with PT today. REVIEW OF SYSTEMS: 12 point ROS reviewed with patient. Pertinent positives mentioned above. Otherwise negative. PHYSICAL EXAM: GENERAL: Post CABG , recovering HEENT: Sclera non icteric, moist mucosa NECK: Supple, no JVD, trachea midline Rt IJ LUNGS: Clear breath sounds to all lobes bilaterally. No wheezes HEART: Regular rate and rhythm. Normal S1 and S2, without murmurs , incision open to air. healing well ABD: Abdomen soft, nontender. Bowel sounds present EXT: No clubbing cyanosis +1 pitting edema to BLE. pulses palpable. cap refill < 3 seconds to carlos feet. NEURO: GCS 15 no focal weakness. Vital Signs (last 8hr) Date Time Temp Pulse Resp B/P (MAP) Pulse Ox O2 Delivery O2 Flow Rate FiO2 10/18/24 11:19 98.4 75 20 128/68 98 Room Air 10/18/24 07:36 97.5 79 18 141/74 98 Room Air LABS: Hematology Labs: Test 10/18/24 03:31 Range/Units White Blood Count 15.0 H 4.8-10.8 K/uL Red Blood Count 3.52 L 4.00-5.50 MIL/uL Hemoglobin 10.2 L 12.0-16.0 g/dL Hematocrit 31.7 L 36-48 % Mean Corpuscular Volume 90.1 79-99 fL Mean Corpuscular Hemoglobin 29.0 27.0-33.0 pg Mean Corpuscular Hemoglobin Concent 32.2 32.0-36.0 g/dL Red Cell Distribution Width 17.3 H 11.0-15.5 % Platelet Count 233 130-400 K/uL Mean Platelet Volume 10.3 7.5-10.5 fL Immature Granulocyte % (Auto) 3.1 H 0-1 % Neutrophils (%) (Auto) 73.0 40.0-77.0 % Lymphocytes (%) (Auto) 13.8 L 21.0-51.0 % Monocytes (%) (Auto) 7.6 3.0-13.0 % Eosinophils (%) (Auto) 2.1 0.0-8.0 % Basophils (%) (Auto) 0.4 0.0-5.0 % Neutrophils # (Auto) 10.9 H 1.8-7.7 K/uL Lymphocytes # (Auto) 2.1 1.0-4.8 K/uL Monocytes # (Auto) 1.1 H 0.1-1.0 K/uL Eosinophils # (Auto) 0.31 0.00-0.70 K/uL Basophils # (Auto) 0.06 0.00-0.20 K/uL Absolute Immature Granulocyte (auto 0.47 0-1 K/uL Nucleated Red Blood Cells 0.7 H 0.0-0.19 % Chemistry Labs: Test 10/18/24 11:32 10/18/24 03:31 Range/Units Whole Blood Glucose 167 #H 70-110 MG/DL Sodium Level 138 136-145 mmol/L Potassium Level 3.6 3.5-5.1 mmol/L Chloride Level 104 101-111 mmol/L Carbon Dioxide Level 29 21-32 mmol/L Blood Urea Nitrogen 14 7-18 mg/dL Creatinine 0.7 0.5-1.0 mg/dL Glomerular Filtration Rate Calc 88 >90 mL/min Random Glucose 122 H 70-105 mg/dL Total Calcium 7.6 L 8.5-10.1 mg/dL Total Bilirubin 0.9 0.2-1.0 mg/dL Aspartate Amino Transf (AST/SGOT) 34 10-37 U/L Alanine Aminotransferase (ALT/SGPT) 15 12-78 U/L Alkaline Phosphatase 59 50-136 U/L Total Protein 5.3 L 6.0-8.3 g/dL Albumin 2.3 L 3.5-5.0 g/dL DIAGNOSTICS / RADIOLOGY RESULTS: [ ] PLAN NEURO: Minimize central acting medications as possible. Maintain fall precautions, adequate lighting during the day PULMONARY: Supplemental 02 as needed. Maintain aspiration precautions at all times CARDIOVASCULAR: Follow hemodynamics. Vital signs per facility protocol GI & NUTRITION: Continue with nutritional support. Continue stool softeners and laxatives as needed. KIDNEYS & ELECTROLYTES: Strict monitoring of intake, output and overall fluid balance. Avoid nephrotoxic medications to the extent possible. Medications to be dosed according to renal function. Monitor electrolytes and replace as needed ENDOCRINE: Maintain blood glucose between 100-180 at all times. Hypoglycemia protocol in place INFECTIOUS DISEASE: Trend temperature, WBC and procalcitonin level Follow cultures, deescalate antibiotics as soon as possible. Panculture if new onset fever ONCOLOGY/HEMATOLOGY/COAGULATION: Monitor for s/s of bleeding Monitor hemoglobin, coagulation studies as needed SKIN: Pressure ulcer prevention per facility protocol Specialty mattress ORTHO/REHAB: Continue PT/OT Prophylaxis: Continue GI and DVT prophylaxis Code Status: Full Resuscitation Disposition: TBD Other: Total patient care time exceeds 35 minutes excluding all procedures. MYRTLE BONILLA Oct 18, 2024 15:32"
--- NOTE | 2024-10-18 18:39 | PN ---
CARDIOLOGY Reason for consult: NSTEMI HPI/story at presentation: This is a pleasant 79-year-old female with past medical history as below presents for chest discomfort. Patient was having mostly back pain and bilateral shoulder pain that was present yesterday morning and then subsequently, was in the ER for further evaluation and had significant elevated troponins therefore, cardiology was consulted for further evaluation and management Subjective: 10/06/2024 no active cardiac complaints 10/07/2024 no chest pain 10/08/2024 no further symptoms 10/09/2024 no complaints 10/10/2024 no complaints 10/11/2024 intubated 10/13/2024 no complaints 10/14/2024 no complaints 10/16/2024 doiarrhea 10/17/2024 no complaints 10/18/2024 no complaints Past medical history: See below Allergies, Meds See chart ros as noted on in HPI Vitals see chart PHYSICAL EXAMINATION GENERAL: intubated 10/11/2024 HEENT: Nonicteric sclerae, non traumatic HEART: Regular rate and rhythm with no murmurs LUNGS:intubated 10/11/2024 ABDOMEN: No acute issues, non tender GENITAL, RECTAL: deferred SKIN: No rash NEUROLOGIC: intubated 10/11/2024 EXTREMITIES: No edema ASSESSMENT NSTEMI,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 Plan for cardiac catheterization tomorrow to further evaluate coronaries Echo pending. risk-benefit discussed extensively and patient wants to proceed. 10/07/2024 Cardiac catheterization today for further evaluation of non-STEMI. Risk-benefit discussed. Primary team addressing possible scleroderma given issues with dysphagia. No active chest pain at this time echo with EF of 35- 40%, on metoprolol aspirin - add statin 10/08/2024 No active cardiac complaints at this time, no further issues with chest or back pain, awaiting final decision from CV surgery regarding surgery. Continue maximal medical therapy. 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 There is a question of GI bleeding with dark stools. Will get an occult blood and hold heparin for now. On atorvastatin beta-estefania and aspirin, continue. Hemoglobin stable. Carotid duplex was negative. Seen and examined 10/04/2024 at around 5 PM 10/09/2024 Was previously evaluated CV surgery, timing of surgery to be determined. On statin beta-estefania aspirin. Labs okay, occult blood has been ordered and is still pending. No further issues with dark stools per report. Currently off anticoagulation. Seen and examined 10/09/2024 at around 1730 10/10/2024 Had an episode of chest discomfort/upper back pain, managed conservatively at this time, heparin was not started. Troponins are trending down. Potential plans for surgery tomorrow. Patient however, thinks this might be related to spinal issues. Seen and examined 10/10/2024 at around 0900 10/11/2024 I was called in the late morning today by Dr. العراقي with concerns of ST elevations after surgery. Patient was taken emergently to cardiac catheterization and underwent intervention to the LAD. Patient had an occluded WILSON. Postprocedure, patient was doing well with hemodynamic stability and improvement in pressor requirements. Potential plans for extubation also noted. Seen and examined 10/11/2024 multiple times 10/12/2024 Extubated, blood pressures are doing okay off pressors. Currently, plan is to get off the balloon pump and then reevaluate. On antiplatelet therapy, s/p PCI to the LAD yesterday in the setting of NSTEMI. Bypass. Recovering well. Family at bedside, questions answered. Plan to switch amiodarone to p.o., agree with stopping lidocaine. Anemia will need to be addressed, transfuse as needed. Seen and examined 10/12/2024 at around 1700 10/13/2024 Doing well, hemodynamic stable, not any pressors, had issues with hematoma from the balloon pump yesterday and did receive 1 unit of transfusion. Otherwise, doing well, states that she is on the left 24, not very ambulatory at this time. Asking to be able to get up hopefully, this can be accomplished tomorrow or day after once the left-sided sheath is out. Appreciate CV surgery, critical care. Currently on Plavix in spite of thrombocytopenia given recent PCI to the LAD. On Amio beta-estefania Lasix Plavix atorvastatin. No longer on lidocaine. Watch hemoglobin. Renal function slightly elevated as well but this is better than yesterday. 10/14/2024 Was on nitroglycerin during the mornings but blood pressures are now better off nitro. Otherwise, doing well. No active cardiac complaints at this time. Appreciate CV surgery. Critical care. Having issues with diarrhea, small, will need to be watched. Sheath to be removed later today hemoglobin being replaced oncology on board anemia. X-ray with improvement. Currently on metoprolol Lasix Plavix statin aspirin amiodarone from a cardiac standpoint. Seen and examined at around 10 AM 10/15/2024 Feeling better, no active cardiac complaints at this time. Art line has been removed. Sitting by the side of the bed today. Still feeling tired but improving. Physical therapy on board. Getting blood hematology on board, seen and examined 10/15/2024 at around 1130AM 10/16/2024 Continuing to have issues with diarrhea and headaches. Currently on the floor. Pressure primary team. Ambulating more, awaiting eventual placement and therapy/rehab. Currently on metoprolol, Lasix, Plavix statin and aspirin continue. Seen and examined 10/16/2024 at around 1800. 10/17/2024 Still having issues with diarrhea but patient was also getting docusate which is a likely contributing factor. GI currently on board to further evaluate for bleeding. Scan was negative except for right groin pseudo, will get an arterial duplex. Working with therapy. 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 Will repeat another duplex tomorrow to recheck on the size of the aneurysm and to ensure resolution. Seen and examined 10/18/2024 around 1700 ATTESTATION I was involved substantially in the care of this patient Number and complexity of problems addressed: 1 acute illness taht is a threat to life or bodily function Amount and or complexity of data Review of prior external note(s) from each unique source: 2+ Ordering of each unique test : 0 Review of the result(s) of each unique test: 2+ Assessment requiring an independent historian(s): No Independent interpretation of test performed by another MD/QTRACYP/appropriate source (not separately reported) : No Discussion of management or test interpretation with external MD/QHCP/appropriate source (not separately reported) : yes, CVT surgery Risk status (cardiac, billing related): moderate Vitals/Labs Vital Signs Date Time Temp Pulse Resp B/P (MAP) Pulse Ox O2 Delivery O2 Flow Rate FiO2 10/18/24 16:00 98.1 76 20 132/68 98 Room Air 10/18/24 08:00 0 21 Laboratory Tests 10/18/24 03:31 Medications Current Medications Morphine Sulfate 2 mg ONCE ONCE IVP Last administered on 10/05/24at 22:22; Start 10/05/24 at 22:30; Stop 10/05/24 at 22:31; Status DC Ketorolac Tromethamine 15 mg ONCE ONCE IV Last administered on 10/05/24at 23:34; Start 10/05/24 at 22:30; Stop 10/05/24 at 22:31; Status DC Nitroglycerin 0.4 mg AD PRN SL; Start 10/05/24 at 22:30; Stop 10/11/24 at 08:37; Status DC Aspirin 162 mg ONCE ONCE PO Last administered on 10/05/24at 23:32; Start 10/05/24 at 23:30; Stop 10/05/24 at 23:31; Status DC Aspirin 81 mg DAILY PO Last administered on 10/18/24at 09:55; Start 10/06/24 at 09:00; Stop 11/05/24 at 08:59 Nitroglycerin 0.5 inch Q8H TD Last administered on 10/10/24at 22:37; Start 10/05/24 at 23:30; Stop 10/11/24 at 08:37; Status DC Ondansetron HCl 4 mg Q6H PRN IV; Start 10/05/24 at 23:30; Stop 10/11/24 at 08:37; Status DC Heparin Sodium (Porcine) 5,000 unit BID SQ; Start 10/06/24 at 09:00; Stop 10/06/24 at 06:29; Status DC Pantoprazole Sodium 40 mg DAILY PO Last administered on 10/10/24at 09:00; Start 10/06/24 at 09:00; Stop 10/11/24 at 08:37; Status DC Acetaminophen 650 mg Q6H PRN PO Last administered on 10/10/24at 06:06; Start 10/05/24 at 23:30; Stop 10/14/24 at 09:10; Status DC Insulin Human Regular INSULIN SLIDING SCAL... ACHS SQ; Start 10/06/24 at 07:30; Stop 10/11/24 at 08:37; Status DC Potassium Chloride 100 ml @ 100 mls/hr AD PRN IV; Start 10/05/24 at 23:30; Stop 10/11/24 at 08:37; Status DC Potassium Chloride 20 meq AD PRN PO Last administered on 10/09/24at 21:00; Start 10/05/24 at 23:30; Stop 10/11/24 at 08:37; Status DC Potassium Chloride 20 meq AD PRN PO; Start 10/05/24 at 23:30; Stop 10/11/24 at 08:37; Status DC Magnesium Sulfate 50 ml @ 0 mls/hr PROTOCOL PRN IV; Start 10/05/24 at 23:30; Stop 10/11/24 at 08:37; Status DC Heparin Sodium (Porcine) *calculation based on ACTUAL B... AD PRN IV Last administered on 10/06/24at 07:19; Start 10/06/24 at 07:30; Stop 10/10/24 at 08:27; Status DC Heparin Sodium/ Dextrose 250 ml @ 0 mls/hr Q6H IV Last administered on 10/08/24at 14:20; Start 10/06/24 at 07:30; Stop 10/10/24 at 08:17; Status DC Atorvastatin Calcium 40 mg ONCE ONCE PO Last administered on 10/06/24at 21:22; Start 10/06/24 at 21:30; Stop 10/06/24 at 21:31; Status DC Clopidogrel Bisulfate 75 mg ONCE ONCE PO Last administered on 10/06/24at 21:22; Start 10/06/24 at 21:30; Stop 10/06/24 at 21:31; Status DC Metoprolol Tartrate 12.5 mg BID PO Last administered on 10/11/24at 06:32; Start 10/07/24 at 09:00; Stop 10/11/24 at 08:37; Status DC Sodium Chloride 500 ml @ 0 mls/hr Q0M IV; Start 10/06/24 at 21:30; Stop 10/11/24 at 08:37; Status DC Lidocaine HCl 20 ml STK-MED ONCE .ROUTE; Start 10/07/24 at 16:23; Stop 10/07/24 at 16:23; Status DC Iohexol 75 ml STK-MED ONCE IV; Start 10/07/24 at 16:23; Stop 10/07/24 at 16:23; Status DC Heparin Sodium (Porcine) 10,000 unit STK-MED ONCE .ROUTE; Start 10/07/24 at 16:23; Stop 10/07/24 at 16:23; Status DC Heparin Sodium/ Sodium Chloride 1,000 ml @ As Directed STK-MED ONCE IV; Start 10/07/24 at 16:23; Stop 10/07/24 at 16:23; Status DC Nitroglycerin 50 mg STK-MED ONCE .ROUTE; Start 10/07/24 at 16:23; Stop 10/07/24 at 16:23; Status DC Fentanyl Citrate 100 mcg STK-MED ONCE .ROUTE; Start 10/07/24 at 16:24; Stop 10/07/24 at 16:24; Status DC Midazolam HCl 2 mg STK-MED ONCE .ROUTE; Start 10/07/24 at 16:24; Stop 10/07/24 at 16:24; Status DC Nicardipine HCl 25 mg STK-MED ONCE IV; Start 10/07/24 at 16:24; Stop 10/07/24 at 16:24; Status DC Sodium Chloride 10 ml Q8H IVP Last administered on 10/18/24at 09:57; Start 10/07/24 at 17:30; Stop 11/06/24 at 17:29 Pharmacy Profile Note 1 each ONCE MISC Last administered on 10/07/24at 23:37; Start 10/07/24 at 17:30; Stop 10/08/24 at 07:12; Status DC Atorvastatin Calcium 20 mg HS PO Last administered on 10/10/24at 20:55; Start 10/08/24 at 21:00; Stop 10/11/24 at 08:37; Status DC Levothyroxine Sodium 100 mcg SYN PO Last administered on 10/18/24at 06:05; Start 10/09/24 at 06:30; Stop 11/08/24 at 06:29 Heparin Sodium/ Dextrose 250 ml @ 0 mls/hr Q6H IV; Start 10/10/24 at 09:00; Stop 10/10/24 at 08:26; Status DC Cefazolin Sodium 2 gm ONCALL PRN IVP; Start 10/10/24 at 12:00; Stop 10/12/24 at 11:59; Status DC Tramadol HCl 25 mg Q6H PRN PO Last administered on 10/10/24at 16:13; Start 10/10/24 at 14:30; Stop 10/11/24 at 08:37; Status DC Cyclobenzaprine HCl 5 mg TID PRN PO; Start 10/10/24 at 14:30; Stop 10/11/24 at 08:37; Status DC Epinephrine HCl 10 mg/Sodium Chloride 250 ml @ 0 mls/hr AD PRN IV; Start 10/11/24 at 07:00; Stop 10/11/24 at 09:01; Status DC Norepinephrine Bitartrate 250 ml @ 0 mls/hr AD PRN IV; Start 10/11/24 at 07:00; Stop 10/11/24 at 09:03; Status DC Aminocaproic Acid 02962 mg/Sodium Chloride 480 ml @ 0 mls/hr AD PRN IV; Start 10/11/24 at 07:00; Stop 11/10/24 at 06:59 Cefazolin Sodium 1 gm STK-MED ONCE .ROUTE; Start 10/11/24 at 06:50; Stop 10/11/24 at 06:51; Status DC Heparin Sodium/ Sodium Chloride 500 ml @ As Directed STK-MED ONCE IV; Start 10/11/24 at 06:51; Stop 10/11/24 at 06:51; Status DC Papaverine HCl 60 mg STK-MED ONCE .ROUTE; Start 10/11/24 at 06:51; Stop 10/11/24 at 06:51; Status DC Cefazolin Sodium 2 gm STK-MED ONCE .ROUTE; Start 10/11/24 at 06:53; Stop 10/11/24 at 06:54; Status DC Sodium Chloride 1,000 ml @ As Directed STK-MED ONCE IV; Start 10/11/24 at 06:53; Stop 10/11/24 at 06:54; Status DC Protamine Sulfate 250 mg STK-MED ONCE IV; Start 10/11/24 at 07:56; Stop 10/11/24 at 07:56; Status DC Lidocaine HCl 100 mg STK-MED ONCE .ROUTE; Start 10/11/24 at 07:56; Stop 10/11/24 at 07:56; Status DC Heparin Sodium (Porcine) 10,000 unit STK-MED ONCE .ROUTE; Start 10/11/24 at 07:56; Stop 10/11/24 at 07:56; Status DC Epinephrine HCl 1 mg STK-MED ONCE .ROUTE; Start 10/11/24 at 07:56; Stop 10/11/24 at 07:56; Status DC Sodium Bicarbonate 200 ml @ As Directed STK-MED ONCE .ROUTE; Start 10/11/24 at 07:56; Stop 10/11/24 at 07:56; Status DC Norepinephrine Bitartrate 4 mg STK-MED ONCE IV; Start 10/11/24 at 07:56; Stop 10/11/24 at 07:56; Status DC Fentanyl Citrate 1,000 mcg STK-MED ONCE IJ; Start 10/11/24 at 07:56; Stop 10/11/24 at 07:57; Status DC Propofol 200 mg STK-MED ONCE IV; Start 10/11/24 at 07:57; Stop 10/11/24 at 07:57; Status DC Midazolam HCl 2 mg STK-MED ONCE .ROUTE; Start 10/11/24 at 07:57; Stop 10/11/24 at 07:57; Status DC Rocuronium [place] 50 mg STK-MED ONCE .ROUTE; Start 10/11/24 at 07:57; Stop 10/11/24 at 07:57; Status DC Ketamine HCl 50 mg STK-MED ONCE .ROUTE; Start 10/11/24 at 07:57; Stop 10/11/24 at 07:58; Status DC Nitroglycerin/ Dextrose 1 ml @ As Directed STK-MED ONCE .ROUTE; Start 10/11/24 at 08:27; Stop 10/11/24 at 08:27; Status DC Atorvastatin Calcium 40 mg HS PO Last administered on 10/13/24at 20:32; Start 10/11/24 at 21:00; Stop 10/14/24 at 09:11; Status DC Acetaminophen 1,000 mg Q6H6 IV Last administered on 10/12/24at 05:06; Start 10/11/24 at 12:00; Stop 10/12/24 at 11:59; Status DC Aspirin 81 mg ONCE ONCE NG; Start 10/11/24 at 12:00; Stop 10/11/24 at 08:42; Status DC Docusate Sodium 100 mg BID PO Last administered on 10/16/24at 09:01; Start 10/12/24 at 09:00; Stop 10/17/24 at 10:46; Status DC Lactulose 20 gm BID PRN PO; Start 10/11/24 at 09:00; Stop 11/10/24 at 08:59 Furosemide 20 mg Q12H PO Last administered on 10/18/24at 09:56; Start 10/13/24 at 09:00; Stop 11/12/24 at 08:59 Furosemide 20 mg Q12H IV Last administered on 10/12/24at 21:18; Start 10/12/24 at 09:00; Stop 10/13/24 at 08:59; Status DC Enoxaparin Sodium 30 mg DAILY SQ; Start 10/14/24 at 09:00; Stop 10/11/24 at 14:00; Status DC Metoprolol Tartrate 12.5 mg BID PO Last administered on 10/18/24at 09:55; Start 10/13/24 at 09:00; Stop 11/12/24 at 08:59 Magnesium Hydroxide 30 ml DAILY PRN PO; Start 10/11/24 at 09:00; Stop 11/10/24 at 08:59 Dexmedetomidine/ Sodium Chloride 400 mcg PROTOCOL IV; Start 10/11/24 at 09:00; Stop 10/12/24 at 08:59; Status DC Acetaminophen 650 mg Q6H PRN PO Last administered on 10/18/24at 01:55; Start 10/11/24 at 09:00; Stop 11/10/24 at 08:59 Sodium Chloride 1,000 ml @ 10 mls/hr ONCE IV; Start 10/11/24 at 09:00; Stop 10/11/24 at 08:52; Status DC Sodium Chloride 10 ml Q8H PRN IVP; Start 10/11/24 at 09:00; Stop 11/10/24 at 08:59 Morphine Sulfate 0.5 mg Q2H PRN IV; Start 10/11/24 at 09:00; Stop 10/12/24 at 08:59; Status DC Morphine Sulfate 1 mg Q2H PRN IV; Start 10/11/24 at 09:00; Stop 10/16/24 at 11:59; Status DC Acetaminophen 650 mg Q4H PRN RC; Start 10/11/24 at 09:00; Stop 11/10/24 at 08:59 Ondansetron HCl 4 mg Q6H PRN IV Last administered on 10/13/24at 08:20; Start 10/11/24 at 09:00; Stop 11/10/24 at 08:59 Sodium Chloride 500 ml @ 0 mls/hr AD IV; Start 10/11/24 at 09:00; Stop 11/10/24 at 08:59 Nitroglycerin/ Dextrose 0 ml @ 0 mls/hr AD IV Last administered on 10/11/24at 12:00; Start 10/11/24 at 09:00; Stop 10/14/24 at 08:59; Status DC Propofol 100 ml @ 0 mls/hr AD PRN IV; Start 10/11/24 at 09:00; Stop 10/15/24 at 08:59; Status DC Norepinephrine Bitartrate 250 ml @ 0 mls/hr AD PRN IV Last administered on 10/12/24at 08:08; Start 10/11/24 at 09:00; Stop 11/10/24 at 08:59 Epinephrine HCl 10 mg/Sodium Chloride 250 ml @ 7.716 mls/ hr AD PRN IV; Start 10/11/24 at 09:00; Stop 10/16/24 at 08:59; Status DC Aminocaproic Acid 31979 mg/Sodium Chloride 310 ml @ 25 mls/hr AD IV; Start 10/11/24 at 09:00; Stop 10/11/24 at 08:54; Status DC Calcium Gluconate 1 gm/Sodium Chloride 60 ml @ 200 mls/hr AD PRN IV Last administered on 10/13/24at 17:20; Start 10/11/24 at 09:00; Stop 11/10/24 at 08:59 Magnesium Sulfate 50 ml @ 12.5 mls/hr AD PRN IV Last administered on 10/12/24at 23:52; Start 10/11/24 at 09:00; Stop 11/10/24 at 08:59 Potassium Chloride 100 ml @ 100 mls/hr AD PRN IV Last administered on 10/16/24at 09:02; Start 10/11/24 at 09:00; Stop 11/10/24 at 08:59 Potassium Phosphate 250 ml @ 42 mls/hr AD PRN IV; Start 10/11/24 at 09:00; Stop 11/10/24 at 08:59 Albumin Human 250 ml @ 0 mls/hr AD PRN IV Last administered on 10/11/24at 23:20; Start 10/11/24 at 09:00; Stop 10/11/24 at 23:20; Status DC Acetaminophen 650 mg Q4H PRN PO; Start 10/11/24 at 09:00; Stop 11/10/24 at 08:59 Insulin Human Regular 100 unit/ Sodium Chloride 100 ml @ 0 mls/hr AD IV Last administered on 10/11/24at 23:19; Start 10/11/24 at 09:00; Stop 10/13/24 at 08:59; Status DC Cefazolin Sodium 2 gm Q8H IVPB Last administered on 10/12/24at 06:21; Start 10/11/24 at 14:00; Stop 10/12/24 at 06:01; Status DC Tramadol HCl 25 mg Q6H PRN PO; Start 10/11/24 at 09:00; Stop 10/16/24 at 08:59; Status DC Tramadol HCl 50 mg Q6H PRN PO Last administered on 10/14/24at 08:29; Start 10/11/24 at 09:00; Stop 10/16/24 at 08:59; Status DC Famotidine 20 mg BID IV; Start 10/11/24 at 09:00; Stop 10/11/24 at 09:03; Status DC Sodium Bicarbonate 50 meq AD PRN IV Last administered on 10/11/24at 18:14; Start 10/11/24 at 09:00; Stop 10/14/24 at 08:59; Status DC Dextrose 50 ml AD PRN IV; Start 10/11/24 at 09:00; Stop 10/13/24 at 07:52; Status DC Glucagon 1 mg AD PRN IM; Start 10/11/24 at 09:00; Stop 10/13/24 at 07:52; Status DC Sodium Chloride 1,000 ml @ 10 mls/hr ONCE ONCE IV Last administered on 10/11/24at 10:30; Start 10/11/24 at 09:00; Stop 10/14/24 at 09:10; Status DC Famotidine 20 mg Q24H IV Last administered on 10/18/24at 09:54; Start 10/11/24 at 09:30; Stop 11/10/24 at 08:59 Vasopressin 20 units STK-MED ONCE .ROUTE; Start 10/11/24 at 09:42; Stop 10/11/24 at 09:42; Status DC Ephedrine Sulfate 50 mg STK-MED ONCE .ROUTE; Start 10/11/24 at 09:42; Stop 10/11/24 at 09:43; Status DC Protamine Sulfate 250 mg STK-MED ONCE IV; Start 10/11/24 at 09:54; Stop 10/11/24 at 09:54; Status DC Protamine Sulfate 50 mg STK-MED ONCE .ROUTE; Start 10/11/24 at 09:54; Stop 10/11/24 at 09:54; Status DC Heparin Sodium (Porcine) 10,000 unit STK-MED ONCE .ROUTE; Start 10/11/24 at 09:54; Stop 10/11/24 at 09:54; Status DC Vasopressin 40 units/Sodium Chloride 40 ml @ 0 mls/hr PROTOCOL IV; Start 10/11/24 at 11:00; Stop 11/10/24 at 10:59 Lidocaine HCl/ Dextrose 250 ml @ 0 mls/hr AD PRN IV Last administered on 10/12/24at 14:44; Start 10/11/24 at 11:00; Stop 10/12/24 at 19:18; Status DC Lidocaine HCl/ Dextrose 250 ml @ As Directed STK-MED ONCE IV; Start 10/11/24 at 10:57; Stop 10/11/24 at 10:57; Status DC Amiodarone HCl 150 mg/Dextrose 103 ml @ 618 mls/hr ONCE IV Last administered on 10/11/24at 11:57; Start 10/11/24 at 12:00; Stop 10/11/24 at 12:09; Status DC Amiodarone HCl 360 mg/Dextrose 207.2 ml @ 33.3 mls/hr AD IV Last administered on 10/11/24at 12:04; Start 10/11/24 at 12:00; Stop 10/12/24 at 19:18; Status DC Amiodarone HCl 540 mg/Dextrose 310.8 ml @ 16.7 mls/hr [id number] IV Last administered on 10/11/24at 18:20; Start 10/11/24 at 12:00; Stop 11/10/24 at 11:59 Atropine Sulfate 1 mg STK-MED ONCE IVP; Start 10/11/24 at 12:42; Stop 10/11/24 at 12:42; Status DC Iohexol 35,000 mg STK-MED ONCE IV; Start 10/11/24 at 12:42; Stop 10/11/24 at 12:42; Status DC Heparin Sodium (Porcine) 10,000 unit STK-MED ONCE .ROUTE; Start 10/11/24 at 12:42; Stop 10/11/24 at 12:42; Status DC Heparin Sodium/ Sodium Chloride 1,000 ml @ As Directed STK-MED ONCE IV; Start 10/11/24 at 12:42; Stop 10/11/24 at 12:43; Status DC Nitroglycerin 50 mg STK-MED ONCE .ROUTE; Start 10/11/24 at 12:42; Stop 10/11/24 at 12:43; Status DC Lidocaine HCl 20 ml STK-MED ONCE .ROUTE; Start 10/11/24 at 12:43; Stop 10/11/24 at 12:43; Status DC Bivalirudin 250 mg STK-MED ONCE IV; Start 10/11/24 at 13:27; Stop 10/11/24 at 13:27; Status DC Iohexol 35,000 mg STK-MED ONCE IV; Start 10/11/24 at 13:34; Stop 10/11/24 at 13:34; Status DC Clopidogrel Bisulfate 300 mg STK-MED ONCE .ROUTE; Start 10/11/24 at 13:45; Stop 10/11/24 at 13:47; Status DC Clopidogrel Bisulfate 75 mg DAILY PO Last administered on 10/18/24at 09:55; Start 10/12/24 at 09:00; Stop 11/11/24 at 08:59 Heparin Sodium/ Dextrose 250 ml @ 0 mls/hr PROTOCOL IV Last administered on 10/11/24at 16:14; Start 10/11/24 at 16:00; Stop 10/12/24 at 19:18; Status DC Dextrose 50 ml AD PRN IV; Start 10/11/24 at 15:00; Stop 11/10/24 at 14:59 Glucagon 1 mg AD PRN IM; Start 10/11/24 at 15:00; Stop 11/10/24 at 14:59 Heparin Sodium/ Dextrose 250 ml @ 0 mls/hr PROTOCOL IV; Start 10/11/24 at 16:00; Stop 10/11/24 at 15:24; Status DC Cefazolin Sodium 2 gm STK-MED ONCE IVPB Last administered on 10/11/24at 08:30; Start 10/11/24 at 08:30; Stop 10/11/24 at 20:01; Status DC Cefazolin Sodium 1 gm STK-MED ONCE IRRIG Last administered on 10/11/24at 09:00; Start 10/11/24 at 09:00; Stop 10/11/24 at 20:01; Status DC Papaverine HCl 60 mg STK-MED ONCE IRRIG Last administered on 10/11/24at 09:00; Start 10/11/24 at 09:00; Stop 10/11/24 at 20:01; Status DC Heparin Sodium (Porcine) 5,000 unit STK-MED ONCE IRRIG Last administered on 10/11/24at 09:00; Start 10/11/24 at 09:00; Stop 10/11/24 at 20:01; Status DC Furosemide 20 mg ONCE ONCE IV; Start 10/12/24 at 02:30; Stop 10/12/24 at 02:31; Status DC Furosemide 20 mg STK-MED ONCE .ROUTE Last administered on 10/12/24at 02:20; Start 10/12/24 at 02:16; Stop 10/12/24 at 02:17; Status DC Albumin Human 250 ml @ As Directed STK-MED ONCE IV Last administered on 10/12/24at 21:19; Start 10/12/24 at 17:49; Stop 10/12/24 at 17:50; Status DC Amiodarone HCl 200 mg DAILY PO Last administered on 10/18/24at 09:54; Start 10/13/24 at 09:00; Stop 11/12/24 at 08:59 Insulin Human Regular INSULIN SLIDING SCAL... ACHS SQ Last administered on 10/17/24at 20:52; Start 10/13/24 at 11:30; Stop 11/12/24 at 11:29 Potassium Chloride 20 meq AD PRN PO Last administered on 10/18/24at 09:54; Start 10/14/24 at 09:00; Stop 11/13/24 at 08:59 Atorvastatin Calcium 40 mg HS PO Last administered on 10/17/24at 20:28; Start 10/14/24 at 21:00; Stop 11/10/24 at 20:59 Iron Sucrose 200 mg ONCE ONCE IV; Start 10/17/24 at 18:00; Stop 10/14/24 at 18:16; Status DC Folic Acid 1 mg DAILY PO Last administered on 10/18/24at 09:54; Start 10/15/24 at 21:00; Stop 11/14/24 at 20:59 Vitamin B Complex 1,000 mcg DAILY PO Last administered on 10/18/24at 09:54; Start 10/15/24 at 21:00; Stop 11/14/24 at 20:59 Iron Sucrose 200 mg AD IV; Start 10/14/24 at 18:30; Stop 10/14/24 at 18:34; Status DC Iron Sucrose 200 mg Q24H IV Last administered on 10/16/24at 18:32; Start 10/14/24 at 19:00; Stop 10/16/24 at 19:01; Status DC Furosemide 20 mg ONCE ONCE IV; Start 10/16/24 at 12:00; Stop 10/16/24 at 12:01; Status DC Docusate Sodium 100 mg BID PRN PO; Start 10/17/24 at 11:00; Stop 11/11/24 at 08:59 GUANACO ORELLANA MD Oct 18, 2024 18:39
[2024-10-19] VITALS (8 sets, daily range): BP systolic 114–141; BP diastolic 56–71; PULSE 67–84; RESP 18–20; TEMP 97.7–98.6; O2SAT 97
[2024-10-19 03:44] LABS: BASOPHILS # (AUTO) 0.09 K/uL (0.00-0.20); BASOPHILS % (AUTO) 0.6 % (0.0-5.0); EOSINOPHILS % (AUTO) 2.1 % (0.0-8.0); HEMATOCRIT 34.4 % (36-48); IMMATURE GRANULOCYTE ABSOLUTE 0.38 K/uL (0-1); LYMPHOCYTES # (AUTO) 2.1 K/uL (1.0-4.8); LYMPHOCYTES % (AUTO) 14.6 % (21.0-51.0); MEAN CORPUSCULAR HEMOGLOBIN 28.9 pg (27.0-33.0); MEAN CORPUSCULAR VOLUME 90.3 fL (79-99); MONOCYTES % (AUTO) 7.4 % (3.0-13.0); NEUTROPHILS # (AUTO) 10.3 K/uL (1.8-7.7); NEUTROPHILS % (AUTO) 72.6 % (40.0-77.0); NUCLEATED RED BLOOD CELLS 0.2 % (0.0-0.19); PLATELET COUNT (AUTO) 330 K/uL (130-400); RED BLOOD CELL COUNT(AUTO) 3.81 MIL/uL (4.00-5.50); RED CELL DISTRIBUTION WIDTH 18.2 % (11.0-15.5); WHITE BLOOD COUNT (AUTO) 14.1 K/uL (4.8-10.8)
[2024-10-19 03:58] LABS: CREATININE 0.7 mg/dL (0.5-1.0); POTASSIUM 3.8 mmol/L (3.5-5.1)
--- NOTE | 2024-10-19 07:02 | HMCIMG ---
US SOFT TISSUE GROIN REASON: pseudoaneurysm left femoral. COMPARISON: None TECHNIQUE: Left groin ultrasound study was performed. FINDINGS: No sonographic evidence of active pseudoaneurysm is seen. Patient is status post compression treatment yesterday. IMPRESSION: No sonographic evidence of active pseudoaneurysm is seen.
[2024-10-19] MEDS: PoTASSium chloRIDE 20MEQ ER 20 MEQ ERTAB PO ONE (08:45)
--- NOTE | 2024-10-19 12:38 | PN ---
[facility] PROGRESS NOTE Date of Service: Oct 19, 2024 Time of Service: 12:37 SUBJECTIVE: Ms. Mac is a 79-year-old female that was seen and examined today on 10/05/2024. Patient is a good historian and personal health. Patient states that she came to the emergency department with a chief complaint of bilateral chest wall pain closer to the axilla and pain also radiates to the back. Onset was 9:30 a.m.. Character is described as throbbing. Symptoms are aggravated with palpation and movement. Symptoms are not alleviated with a chiropractic adjustment in fact symptoms became worse after a chiropractic adjustment. There was no alleviating factors Duration of pain is on and off. Patient denies any associated shortness of breath, nausea, vomiting, headache, dizziness. Today in the emergency department CBC unremarkable, troponin 378 (high sensitivity), creatinine 1.1, glucose 208 mg/dL, GFR 51, no urinalysis has been collected or sent to lab. Emergency room initial impression and EKG is that there is new T-wave inversions signifying a change from previous EKGs one week ago at a prior emergency room visit. For this reason emergency room physician recommended patient be admitted with a diagnosis of chest pain. 10/06/24 patient was seen and examined in the ER. She reports that she was doing much better. She denies any chest pain. And she tells me that she came in because she had back pain radiating to bilateral shoulders. She does go to chiropractor to get this resolved but this time it was more persistent 10/07/2024 - patient is seen at bedside in the room ER 5. Patient denies any active chest pain, shortness of breath, nausea, vomiting. [place] [address] and is coming down with treatment, patient is planned for slabber light. Patient feels anxious about the upcoming slabber light procedure and question regarding the procedures, all questions were answered. Patient informed about her extremities getting cold and color change to purplish red and about her joint problems and trouble of food getting stuck in the esophagus after swallowing , immunology workup is planned to rule out limited scleroderma . Patient is hemodynamically stable with temperature 98.6, pulse 77, respiratory rate 17, blood pressure 146/77, pulse oximetry 99% on room air. Patient's labs shows WBC 10.4, hemoglobin 13.5, chemistries show sodium 141, potassium 4.3, creatinine 0.8, BUN 14. Patient is currently on metoprolol, pantoprazole, aspirin, heparin, nitroglycerin. Patient will be followed cl osely, we will follow Cardiology recommendations. 10/08/2024 - patient is seen in room 201, patient denies any symptoms, patient was taken to the slabber light yesterday in the results are as follows SELECTIVE CORONARY ANGIOGRAPHY: 1. Left main: The left main bifurcates into the left anterior descending and circumflex coronary artery. Distal Left main with 50% stenosis 2. Left anterior descending: The left anterior descending coronary artery gives rise to diagonal(s) and terminates as the apical recurrent branch. Prox LAD with 90% disease 3. Circumflex: The circumflex coronary artery is noted to provide obtuse marginal(s). Prox Cx with 95% disease 4. Right coronary artery: The right coronary artery is dominant and gives PDA and NIKITA. Prox RCA with 50% disease 5. Left ventricular end-diastolic pressure is elevated. There was no gradient noted upon pullback. Cardiothoracic surgeon is consulted and Dr. Licona has ordered an ultrasound carotid has a preoperative procedure. patient will be continued on medical management until the surgery . Patient is currently hemodynamically stable with temperature 98.2, pulse 81, blood pressure 122/80, respiratory rate 18, saturating at 94% on room air. Patient's labs shows WBC 10.7, hemoglobin 11.9 and chemistries show sodium 142, potassium 3.7, creatinine 0.7. Awaiting further instructions from cardio thoracic surgeon. 10/17/24 Patient was seen and examined at bedside. She feels better but complains of generalized weakness. She is working with PT at the time of evaluation. Pending bleeding scan today and GI recommendations for discharge. 10/18/24 patient is seen and examined along with the RN. 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 It was 1st identified on nuclear medicine bleeding scan done to rule out GI bleed which did rule out any GI bleed which showed accumulation of tracer in the left groin which was followed by an arterial dupl ex which did showed a pseudoaneurysm cardiology was notified pressure dressing was applied. No drop in hemoglobin 10/19/24 : Patient seen and examined no new complaints hemoglobin stable REVIEW OF SYSTEMS CONSTITUTIONAL: Denies fevers, chills, or night sweats. No unintentional weight loss reported. NEUROLOGICAL: Denies headache, amaurosis fugax, motor weakness, sensory deficit, vertigo/spinning sensation, gait abnormalities, or tremors. ENT: No hearing loss, otalgia, otorrhea, rhinitis, rhinorrhea, hoarseness, or sore throat. CARDIOVASCULAR: Denies any exertional angina, dyspnea on exertion, PULMONARY: Denies any shortness of breath, cough, GASTROINTESTINAL: Denies any type of dysphagia to either liquids or solids. Denies nausea, vomiting, pyrosis, early satiety, abdominal pain, diarrhea, constipation, or changes in stool consistency or caliber. Denies coffee-ground emesis, hematemesis, hematochezia, or melanotic stools. DERMATOLOGIC: Denies rashes or pruritus. PSYCHIATRIC: Denies any suicidal or homicidal ideation. Denies hallucinations. PHYSICAL EXAM GENERAL APPEARANCE: The patient is awake, alert, and oriented, in no acute cardiopulmonary distress. NEUROLOGICAL: Cranial nerves II-XII grossly intact. Motor is 5/5 in bilateral upper and lower extremities proximal to distal. No sensory deficits. HEENT: Face is symmetric. Pupils are equal and reactive. Extraocular movements are intact. NECK: Supple. No JVD. No thyromegaly. No submental, submandibular, pre- /postauricular, occipital or supraclavicular lymphadenopathy. CHEST: Normal chest expansion. No Telemetry. LUNGS: Absence of any rales, rhonchi or any wheezing. CARDIOVASCULAR: Regular. S1 and S2 normal. No appreciable rubs, murmurs or gallops. ABDOMEN: Soft, nontender, and nondistended. There is no rebound, voluntary guarding, or rigidity. : Deferred. No Rosa. EXTREMITIES: Non-edematous and not cyanotic. No clubbing. Good capillary refill. SKIN: No skin breakdown. Vital Signs (last 8hr) Date Time Temp Pulse Resp B/P (MAP) Pulse Ox O2 Delivery O2 Flow Rate FiO2 10/19/24 12:29 98.6 75 20 136/65 98 Room Air 10/19/24 07:55 97 Room Air* 0 21 10/19/24 07:34 98.4 73 20 141/64 98 Room Air LABS: Laboratory: Test 10/19/24 11:21 10/19/24 03:24 10/18/24 03:31 Range/Units Whole Blood Glucose 205 #H 70-110 MG/DL White Blood Count 14.1 H 4.8-10.8 K/uL Red Blood Count 3.81 L 4.00-5.50 MIL/uL Hemoglobin 11.0 L 12.0-16.0 g/dL Hematocrit 34.4 L 36-48 % Mean Corpuscular Volume 90.3 79-99 fL Mean Corpuscular Hemoglobin 28.9 27.0-33.0 pg Mean Corpuscular Hemoglobin Concent 32.0 32.0-36.0 g/dL Red Cell Distribution Width 18.2 H 11.0-15.5 % Platelet Count 330 # 130-400 K/uL Mean Platelet Volume 10.1 7.5-10.5 fL Immature Granulocyte % (Auto) 2.7 H 0-1 % Neutrophils (%) (Auto) 72.6 40.0-77.0 % Lymphocytes (%) (Auto) 14.6 L 21.0-51.0 % Monocytes (%) (Auto) 7.4 3.0-13.0 % Eosinophils (%) (Auto) 2.1 0.0-8.0 % Basophils (%) (Auto) 0.6 0.0-5.0 % Neutrophils # (Auto) 10.3 H 1.8-7.7 K/uL Lymphocytes # (Auto) 2.1 1.0-4.8 K/uL Monocytes # (Auto) 1.0 0.1-1.0 K/uL Eosinophils # (Auto) 0.30 0.00-0.70 K/uL Basophils # (Auto) 0.09 0.00-0.20 K/uL Absolute Immature Granulocyte (auto 0.38 0-1 K/uL Nucleated Red Blood Cells 0.2 H 0.0-0.19 % Red Blood Cell Morphology See comments Sodium Level 137 136-145 mmol/L Potassium Level 3.8 3.5-5.1 mmol/L Chloride Level 103 101-111 mmol/L Carbon Dioxide Level 30 21-32 mmol/L Blood Urea Nitrogen 12 7-18 mg/dL Creatinine 0.7 0.5-1.0 mg/dL Glomerular Filtration Rate Calc 88 >90 mL/min Random Glucose 107 H 70-105 mg/dL Total Calcium 8.1 L 8.5-10.1 mg/dL Magnesium Level 1.70 L 1.80-2.40 mg/dL Total Bilirubin 0.9 0.2-1.0 mg/dL Aspartate Amino Transf (AST/SGOT) 34 10-37 U/L Alanine Aminotransferase (ALT/SGPT) 15 12-78 U/L Alkaline Phosphatase 59 50-136 U/L Total Protein 5.3 L 6.0-8.3 g/dL Albumin 2.3 L 3.5-5.0 g/dL Current Medications Medications (Trade) Dose Ordered Sig/Rashad Route PRN Reason Start Time Stop Time Status Last Admin Dose Admin Acetaminophen (TYLenol 325MG TAB) 650 mg Q4H PRN PO Temp >38.3C(AFTER EXTUBATION) 10/11/24 09:00 11/10/24 08:59 Acetaminophen (TYLenol 325MG TAB) 650 mg Q6H PRN PO MILD PAIN (1-3) 10/11/24 09:00 11/10/24 08:59 10/18/24 01:55 650 MG Acetaminophen (TYLenol 325MG TAB) 650 mg Q6H PRN PO TEMPERATURE GREATER THAN 101.5 10/05/24 23:30 10/14/24 09:10 DC 10/10/24 06:06 650 MG Acetaminophen (TYLenol 650MG SUPPOSITORY) 650 mg Q4H PRN RC Temp >38.3C WHILE INTUBATED 10/11/24 09:00 11/10/24 08:59 Acetaminophen (acetaMINOPHEN) 1,000 mg Q6H6 IV 10/11/24 12:00 10/12/24 11:59 DC 10/12/24 05:06 1,000 MG Albumin Human 250 ml @ 0 mls/hr AD PRN IV IF HEMODYNAMICALLY UNSTABLE 10/11/24 09:00 10/11/24 23:20 DC 10/11/24 23:20 250 MLS/HR Aminocaproic Acid 58624 mg/Sodium Chloride 310 ml @ 25 mls/hr AD IV 10/11/24 09:00 10/11/24 08:54 DC Aminocaproic Acid 06813 mg/Sodium Chloride 480 ml @ 0 mls/hr AD PRN IV BLEEDING CONTROL 10/11/24 07:00 11/10/24 06:59 Amiodarone HCl (pacERONE 200MG) 200 mg DAILY PO 10/13/24 09:00 11/12/24 08:59 10/19/24 08:38 200 MG Amiodarone HCl 150 mg/Dextrose 103 ml @ 618 mls/hr ONCE IV 10/11/24 12:00 10/11/24 12:09 DC 10/11/24 11:57 618 MLS/HR Amiodarone HCl 360 mg/Dextrose 207.2 ml @ 33.3 mls/hr AD IV 10/11/24 12:00 10/12/24 19:18 DC 10/11/24 12:04 33.3 MLS/HR Amiodarone HCl 540 mg/Dextrose 310.8 ml @ 16.7 mls/hr [id number] IV 10/11/24 12:00 11/10/24 11:59 Hold 10/11/24 18:20 16.7 MLS/HR Aspirin (Aspirin 81mg Chew Tab) 81 mg DAILY PO 10/06/24 09:00 11/05/24 08:59 10/19/24 08:38 81 MG Atorvastatin Calcium (LIPItor 20MG) 20 mg HS PO 10/08/24 21:00 10/11/24 08:37 DC 10/10/24 20:55 20 MG Atorvastatin Calcium (LIPItor 20MG) 40 mg HS PO 10/11/24 21:00 10/14/24 09:11 DC 10/13/24 20:32 40 MG Atorvastatin Calcium (LIPItor 40MG) 40 mg HS PO 10/14/24 21:00 11/10/24 20:59 10/18/24 21:20 40 MG Calcium Gluconate 1 gm/Sodium Chloride 60 ml @ 200 mls/hr AD PRN IV HYPOCALCEMIA 10/11/24 09:00 11/10/24 08:59 10/13/24 17:20 200 MLS/HR Cefazolin Sodium (Ancef) 2 gm ONCALL PRN IVP SURGERY 10/10/24 12:00 10/12/24 11:59 DC Cefazolin Sodium (Ancef) 2 gm Q8H IVPB 10/11/24 14:00 10/12/24 06:01 DC 10/12/24 06:21 2 GM Clopidogrel Bisulfate (plaVIX 75MG) 75 mg DAILY PO 10/12/24 09:00 11/11/24 08:59 10/19/24 08:38 75 MG Cyclobenzaprine HCl (Cyclobenzaprine HCl) 5 mg TID PRN PO MUSCLE SPASMS 10/10/24 14:30 10/11/24 08:37 DC Dexmedetomidine/ Sodium Chloride (PRECEdex 400MCG/ 100ML-NS) 400 mcg PROTOCOL IV 10/11/24 09:00 10/12/24 08:59 DC Dextrose (D50w) 50 ml AD PRN IV HYPOGLYCEMIA PROTOCOL 10/11/24 09:00 10/13/24 07:52 DC Dextrose (D50w) 50 ml AD PRN IV HYPOGLYCEMIA PROTOCOL 10/11/24 15:00 11/10/24 14:59 Docusate Sodium (COLace 100MG CAP) 100 mg BID PO 10/12/24 09:00 10/17/24 10:46 DC 10/16/24 09:01 100 MG Docusate Sodium (COLace 100MG CAP) 100 mg BID PRN PO CONSTIPATION 10/17/24 11:00 11/11/24 08:59 Enoxaparin Sodium (Lovenox) 30 mg DAILY SQ 10/14/24 09:00 10/11/24 14:00 DC Epinephrine HCl 10 mg/Sodium Chloride 250 ml @ 7.716 mls/ hr AD PRN IV POST-OP CARDIOVASCULAR ORDERS 10/11/24 09:00 10/16/24 08:59 DC Epinephrine HCl 10 mg/Sodium Chloride 250 ml @ 0 mls/hr AD PRN IV TITRATE 10/11/24 07:00 10/11/24 09:01 DC Famotidine (Pepcid 20mg Vial) 20 mg BID IV 10/11/24 09:00 10/11/24 09:03 DC Famotidine (Pepcid 20mg Vial) 20 mg Q24H IV 10/11/24 09:30 11/10/24 08:59 10/19/24 08:38 20 MG Folic Acid (FOLic ACID 1 MG TABLET) 1 mg DAILY PO 10/15/24 21:00 11/14/24 20:59 10/19/24 08:38 1 MG Furosemide (LASix 20MG TAB) 20 mg Q12H PO 10/13/24 09:00 11/12/24 08:59 10/19/24 08:42 20 MG Furosemide (LASix 20MG VIAL) 20 mg Q12H IV 10/12/24 09:00 10/13/24 08:59 DC 10/12/24 21:18 20 MG Glucagon (Glucagon 1mg Kit) 1 mg AD PRN IM HYPOGLYCEMIA PROTOCOL 10/11/24 09:00 10/13/24 07:52 DC Glucagon (Glucagon 1mg Kit) 1 mg AD PRN IM HYPOGLYCEMIA PROTOCOL 10/11/24 15:00 11/10/24 14:59 Heparin Sodium (Porcine) (HEParin 5,000 UNIT VIAL) *calculation based on ACTUAL B... AD PRN IV HEPARIN PROTOCOL 10/06/24 07:30 10/10/24 08:27 DC 10/06/24 07:19 3,877.5 UNIT Heparin Sodium (Porcine) (HEParin 5,000 UNIT VIAL) 5,000 unit BID SQ 10/06/24 09:00 10/06/24 06:29 DC Heparin Sodium/ Dextrose 250 ml @ 0 mls/hr PROTOCOL IV 10/11/24 16:00 10/11/24 15:24 DC Heparin Sodium/ Dextrose 250 ml @ 0 mls/hr PROTOCOL IV 10/11/24 16:00 10/12/24 19:18 DC 10/11/24 16:14 8.7 MLS/HR Heparin Sodium/ Dextrose 250 ml @ 0 mls/hr Q6H IV 10/10/24 09:00 10/10/24 08:26 DC Heparin Sodium/ Dextrose 250 ml @ 0 mls/hr Q6H IV 10/06/24 07:30 10/10/24 08:17 DC 10/08/24 14:20 0 MLS/HR Insulin Human Regular (humuLIN R 100 UNIT/ML 3ML) INSULIN SLIDING SCAL... ACHS SQ 10/13/24 11:30 11/12/24 11:29 10/19/24 11:58 3 UNIT Insulin Human Regular (humuLIN R 100 UNIT/ML 3ML) INSULIN SLIDING SCAL... ACHS SQ 10/06/24 07:30 10/11/24 08:37 DC Insulin Human Regular 100 unit/ Sodium Chloride 100 ml @ 0 mls/hr AD IV 10/11/24 09:00 10/13/24 08:59 DC 10/11/24 23:19 3 MLS/HR Iron Sucrose (VenoFER) 200 mg AD IV 10/14/24 18:30 10/14/24 18:34 DC Iron Sucrose (VenoFER) 200 mg Q24H IV 10/14/24 19:00 10/16/24 19:01 DC 10/16/24 18:32 200 MG Lactulose (Constulose 20gm/ 30ml Udcup) 20 gm BID PRN PO CONSTIPATION 10/11/24 09:00 11/10/24 08:59 Levothyroxine Sodium (SYNTHroid 100MCG TAB) 100 mcg SYN PO 10/09/24 06:30 11/08/24 06:29 10/19/24 06:51 100 MCG Lidocaine HCl/ Dextrose 250 ml @ 0 mls/hr AD PRN IV TITRATE 10/11/24 11:00 10/12/24 19:18 DC 10/12/24 14:44 7.5 MLS/HR Magnesium Hydroxide (Milk Of Magnesium 30ml) 30 ml DAILY PRN PO CONSTIPATION 10/11/24 09:00 11/10/24 08:59 Magnesium Sulfate 50 ml @ 12.5 mls/hr AD PRN IV MAG LEVEL LESS THAN 2.0 10/11/24 09:00 11/10/24 08:59 10/19/24 08:41 12.5 MLS/HR Magnesium Sulfate 50 ml @ 0 mls/hr PROTOCOL PRN IV h 10/05/24 23:30 10/11/24 08:37 DC Metoprolol Tartrate (loprESSOR) 12.5 mg BID PO 10/07/24 09:00 10/11/24 08:37 DC 10/11/24 06:32 12.5 MG Metoprolol Tartrate (loprESSOR) 12.5 mg BID PO 10/13/24 09:00 11/12/24 08:59 10/19/24 08:42 12.5 MG Morphine Sulfate (morPHINE 2MG SYG) 0.5 mg Q2H PRN IV MODERATE PAIN (4-6) 10/11/24 09:00 10/12/24 08:59 DC Morphine Sulfate (morPHINE 2MG SYG) 1 mg Q2H PRN IV SEVERE PAIN (7-10) 10/11/24 09:00 10/16/24 11:59 DC Nitroglycerin (Nitroglycerin 1gm Oint) 0.5 inch Q8H TD 10/05/24 23:30 10/11/24 08:37 DC 10/10/24 22:37 0.5 INCH Nitroglycerin (Nitrostat) 0.4 mg AD PRN SL CHEST PAIN 10/05/24 22:30 10/11/24 08:37 DC Nitroglycerin/ Dextrose 0 ml @ 0 mls/hr AD IV 10/11/24 09:00 10/14/24 08:59 DC 10/11/24 12:00 0 MLS/HR Norepinephrine Bitartrate 250 ml @ 0 mls/hr AD PRN IV TITRATE 10/11/24 07:00 10/11/24 09:03 DC Norepinephrine Bitartrate 250 ml @ 0 mls/hr AD PRN IV POST-OP CARDIOVASCULAR ORDERS 10/11/24 09:00 11/10/24 08:59 10/12/24 08:08 11.3 MLS/HR Ondansetron HCl (zoFRAN 4MG INJ) 4 mg Q6H PRN IV NAUSEA/VOMITING 10/11/24 09:00 11/10/24 08:59 10/13/24 08:20 4 MG Ondansetron HCl (zoFRAN 4MG INJ) 4 mg Q6H PRN IV NAUSEA/VOMITING 10/05/24 23:30 10/11/24 08:37 DC Pantoprazole Sodium (PROTonix 40MG TAB) 40 mg DAILY PO 10/06/24 09:00 10/11/24 08:37 DC 10/10/24 09:00 40 MG Pharmacy Profile Note (Pharmacy Communication) 1 each ONCE MISC 10/07/24 17:30 10/08/24 07:12 DC 10/07/24 23:37 1 EACH Potassium Phosphate 250 ml @ 42 mls/hr AD PRN IV LOW PHOS LEVEL 10/11/24 09:00 11/10/24 08:59 Potassium Chloride 100 ml @ 100 mls/hr AD PRN IV HYPOKALEMIA 10/11/24 09:00 11/10/24 08:59 10/16/24 09:02 100 MLS/HR Potassium Chloride 100 ml @ 100 mls/hr AD PRN IV POTASSIUM PROTOCOL 10/05/24 23:30 10/11/24 08:37 DC Potassium Chloride (K-Dur/Klor-Con 20meq) 20 meq AD PRN PO POTASSIUM PROTOCOL 10/05/24 23:30 10/11/24 08:37 DC Potassium Chloride (KCl 10% Elixir 20meq/15ml) 20 meq AD PRN PO POTASSIUM PROTOCOL 10/14/24 09:00 11/13/24 08:59 10/19/24 11:58 20 MEQ Potassium Chloride (KCl 10% Elixir 20meq/15ml) 20 meq AD PRN PO POTASSIUM PROTOCOL 10/05/24 23:30 10/11/24 08:37 DC 10/09/24 21:00 20 MEQ Propofol 100 ml @ 0 mls/hr AD PRN IV SEDATION 10/11/24 09:00 10/15/24 08:59 DC Sodium Bicarbonate (Sodium Bicarb 50meq 50ml Vial) 50 meq AD PRN IV OTHER[SEE DOSING INSTRUCTIONS] 10/11/24 09:00 10/14/24 08:59 DC 10/11/24 18:14 50 MEQ Sodium Chloride 500 ml @ 0 mls/hr AD IV 10/11/24 09:00 11/10/24 08:59 Sodium Chloride 500 ml @ 0 mls/hr Q0M IV 10/06/24 21:30 10/11/24 08:37 DC Sodium Chloride 1,000 ml @ 10 mls/hr ONCE IV 10/11/24 09:00 10/11/24 08:52 DC Sodium Chloride (NS Flush 10ml) 10 ml Q8H IVP 10/07/24 17:30 11/06/24 17:29 10/19/24 08:47 10 ML Sodium Chloride (NS Flush 10ml) 10 ml Q8H PRN IVP IV LINE FLUSH 10/11/24 09:00 11/10/24 08:59 Tramadol HCl (UltRAM) 25 mg Q6H PRN PO MODERATE PAIN (4-6) 10/10/24 14:30 10/11/24 08:37 DC 10/10/24 16:13 25 MG Tramadol HCl (UltRAM) 25 mg Q6H PRN PO MODERATE PAIN (4-6) 10/11/24 09:00 10/16/24 08:59 DC Tramadol HCl (UltRAM) 50 mg Q6H PRN PO SEVERE PAIN (7-10) 10/11/24 09:00 10/16/24 08:59 DC 10/14/24 08:29 50 MG Vasopressin 40 units/Sodium Chloride 40 ml @ 0 mls/hr PROTOCOL IV 10/11/24 11:00 11/10/24 10:59 Vitamin B Complex (Vitamin B-12) 1,000 mcg DAILY PO 10/15/24 21:00 11/14/24 20:59 10/19/24 08:38 1,000 MCG DIAGNOSTICS / RADIOLOGY: [ ] ASSESSMENT: Chest pain due to NSTEMI, POA NSTEMI, POA Elevated troponin, POA CKD stage IIIA, POA uncontrolled Diabetes mellitius type2, POA Hypertension POA Hypothyroidism POA Raynaud's phenomenon POA GI bleed resolved 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 PLAN: Downgraded from icu to pccu Bleeding scan revealed no GI bleed but did show left groin crease her leak which led to arterial duplex of left groin and showed pseudoaneurysm cardiology is aware doing pressure dressing there. Endoscopy was cancer as there was no signs of bleeding in the GI tract. Transfuse RBC if Hb<7 Incentive spirometry Avoid nephrotoxic agents when possible Renally dose all medications when possible Monitor intake and output Weight patient daily Monitor patient's labs Glucometer checks a.c. and HS Humulin R sliding scale Follow Cardiothoracic recommendations and Cardiology recommendations Maintain electrolyte balance OSIRIS ANDERSON MD Oct 19, 2024 12:38
--- NOTE | 2024-10-19 18:51 | PN ---
CARDIOLOGY Reason for consult: NSTEMI HPI/story at presentation: This is a pleasant 79-year-old female with past medical history as below presents for chest discomfort. Patient was having mostly back pain and bilateral shoulder pain that was present yesterday morning and then subsequently, was in the ER for further evaluation and had significant elevated troponins therefore, cardiology was consulted for further evaluation and management Subjective: 10/06/2024 no active cardiac complaints 10/07/2024 no chest pain 10/08/2024 no further symptoms 10/09/2024 no complaints 10/10/2024 no complaints 10/11/2024 intubated 10/13/2024 no complaints 10/14/2024 no complaints 10/16/2024 doiarrhea 10/17/2024 no complaints 10/18/2024 no complaints 10/19/2024 no complaints Past medical history: See below Allergies, Meds See chart ros as noted on in HPI Vitals see chart PHYSICAL EXAMINATION GENERAL: intubated 10/11/2024 HEENT: Nonicteric sclerae, non traumatic HEART: Regular rate and rhythm with no murmurs LUNGS:intubated 10/11/2024 ABDOMEN: No acute issues, non tender GENITAL, RECTAL: deferred SKIN: No rash NEUROLOGIC: intubated 10/11/2024 EXTREMITIES: No edema ASSESSMENT NSTEMI,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 Plan for cardiac catheterization tomorrow to further evaluate coronaries Echo pending. risk-benefit discussed extensively and patient wants to proceed. 10/07/2024 Cardiac catheterization today for further evaluation of non-STEMI. Risk-benefit discussed. Primary team addressing possible scleroderma given issues with dysphagia. No active chest pain at this time echo with EF of 35- 40%, on metoprolol aspirin - add statin 10/08/2024 No active cardiac complaints at this time, no further issues with chest or back pain, awaiting final decision from CV surgery regarding surgery. Continue maximal medical therapy. 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 There is a question of GI bleeding with dark stools. Will get an occult blood and hold heparin for now. On atorvastatin beta-estefania and aspirin, continue. Hemoglobin stable. Carotid duplex was negative. Seen and examined 10/04/2024 at around 5 PM 10/09/2024 Was previously evaluated CV surgery, timing of surgery to be determined. On statin beta-estefania aspirin. Labs okay, occult blood has been ordered and is still pending. No further issues with dark stools per report. Currently off anticoagulation. Seen and examined 10/09/2024 at around 1730 10/10/2024 Had an episode of chest discomfort/upper back pain, managed conservatively at this time, heparin was not started. Troponins are trending down. Potential plans for surgery tomorrow. Patient however, thinks this might be related to spinal issues. Seen and examined 10/10/2024 at around 0900 10/11/2024 I was called in the late morning today by Dr. العراقي with concerns of ST elevations after surgery. Patient was taken emergently to cardiac catheterization and underwent intervention to the LAD. Patient had an occluded WILSON. Postprocedure, patient was doing well with hemodynamic stability and improvement in pressor requirements. Potential plans for extubation also noted. Seen and examined 10/11/2024 multiple times 10/12/2024 Extubated, blood pressures are doing okay off pressors. Currently, plan is to get off the balloon pump and then reevaluate. On antiplatelet therapy, s/p PCI to the LAD yesterday in the setting of NSTEMI. Bypass. Recovering well. Family at bedside, questions answered. Plan to switch amiodarone to p.o., agree with stopping lidocaine. Anemia will need to be addressed, transfuse as needed. Seen and examined 10/12/2024 at around 1700 10/13/2024 Doing well, hemodynamic stable, not any pressors, had issues with hematoma from the balloon pump yesterday and did receive 1 unit of transfusion. Otherwise, doing well, states that she is on the left 24, not very ambulatory at this time. Asking to be able to get up hopefully, this can be accomplished tomorrow or day after once the left-sided sheath is out. Appreciate CV surgery, critical care. Currently on Plavix in spite of thrombocytopenia given recent PCI to the LAD. On Amio beta-estefania Lasix Plavix atorvastatin. No longer on lidocaine. Watch hemoglobin. Renal function slightly elevated as well but this is better than yesterday. 10/14/2024 Was on nitroglycerin during the mornings but blood pressures are now better off nitro. Otherwise, doing well. No active cardiac complaints at this time. Appreciate CV surgery. Critical care. Having issues with diarrhea, small, will need to be watched. Sheath to be removed later today hemoglobin being replaced oncology on board anemia. X-ray with improvement. Currently on metoprolol Lasix Plavix statin aspirin amiodarone from a cardiac standpoint. Seen and examined at around 10 AM 10/15/2024 Feeling better, no active cardiac complaints at this time. Art line has been removed. Sitting by the side of the bed today. Still feeling tired but improving. Physical therapy on board. Getting blood hematology on board, seen and examined 10/15/2024 at around 1130AM 10/16/2024 Continuing to have issues with diarrhea and headaches. Currently on the floor. Pressure primary team. Ambulating more, awaiting eventual placement and therapy/rehab. Currently on metoprolol, Lasix, Plavix statin and aspirin continue. Seen and examined 10/16/2024 at around 1800. 10/17/2024 Still having issues with diarrhea but patient was also getting docusate which is a likely contributing factor. GI currently on board to further evaluate for bleeding. Scan was negative except for right groin pseudo, will get an arterial duplex. Working with therapy. 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 Will repeat another duplex tomorrow to recheck on the size of the aneurysm and to ensure resolution. Seen and examined 10/18/2024 around 1700 10/19/2024 Ultrasound completed today with resolution of pseudoaneurysm, overall doing well, ambulating more. seen and examined 10/19/2024 at around 1800 ATTESTATION I was involved substantially in the care of this patient Number and complexity of problems addressed: 1 acute illness taht is a threat to life or bodily function Amount and or complexity of data Review of prior external note(s) from each unique source: 2+ Ordering of each unique test : 0 Review of the result(s) of each unique test: 2+ Assessment requiring an independent historian(s): No Independent interpretation of test performed by another MD/QHCP/appropriate source (not separately reported) : No Discussion of management or test interpretation with external MD/QHCP/appropriate source (not separately reported) : yes, CVT surgery Risk status (cardiac, billing related): moderate Vitals/Labs Vital Signs Date Time Temp Pulse Resp B/P (MAP) Pulse Ox O2 Delivery O2 Flow Rate FiO2 10/19/24 16:00 98.6 75 20 133/57 99 Room Air 10/19/24 07:55 0 21 Laboratory Tests 10/19/24 03:24 Medications Current Medications Morphine Sulfate 2 mg ONCE ONCE IVP Last administered on 10/05/24at 22:22; Start 10/05/24 at 22:30; Stop 10/05/24 at 22:31; Status DC Ketorolac Tromethamine 15 mg ONCE ONCE IV Last administered on 10/05/24at 23:34; Start 10/05/24 at 22:30; Stop 10/05/24 at 22:31; Status DC Nitroglycerin 0.4 mg AD PRN SL; Start 10/05/24 at 22:30; Stop 10/11/24 at 08:37; Status DC Aspirin 162 mg ONCE ONCE PO Last administered on 10/05/24at 23:32; Start 10/05/24 at 23:30; Stop 10/05/24 at 23:31; Status DC Aspirin 81 mg DAILY PO Last administered on 10/19/24at 08:38; Start 10/06/24 at 09:00; Stop 11/05/24 at 08:59 Nitroglycerin 0.5 inch Q8H TD Last administered on 10/10/24at 22:37; Start 10/05/24 at 23:30; Stop 10/11/24 at 08:37; Status DC Ondansetron HCl 4 mg Q6H PRN IV; Start 10/05/24 at 23:30; Stop 10/11/24 at 08:37; Status DC Heparin Sodium (Porcine) 5,000 unit BID SQ; Start 10/06/24 at 09:00; Stop 10/06/24 at 06:29; Status DC Pantoprazole Sodium 40 mg DAILY PO Last administered on 10/10/24at 09:00; Start 10/06/24 at 09:00; Stop 10/11/24 at 08:37; Status DC Acetaminophen 650 mg Q6H PRN PO Last administered on 10/10/24at 06:06; Start 10/05/24 at 23:30; Stop 10/14/24 at 09:10; Status DC Insulin Human Regular INSULIN SLIDING SCAL... ACHS SQ; Start 10/06/24 at 07:30; Stop 10/11/24 at 08:37; Status DC Potassium Chloride 100 ml @ 100 mls/hr AD PRN IV; Start 10/05/24 at 23:30; Stop 10/11/24 at 08:37; Status DC Potassium Chloride 20 meq AD PRN PO Last administered on 10/09/24at 21:00; Start 10/05/24 at 23:30; Stop 10/11/24 at 08:37; Status DC Potassium Chloride 20 meq AD PRN PO; Start 10/05/24 at 23:30; Stop 10/11/24 at 08:37; Status DC Magnesium Sulfate 50 ml @ 0 mls/hr PROTOCOL PRN IV; Start 10/05/24 at 23:30; Stop 10/11/24 at 08:37; Status DC Heparin Sodium (Porcine) *calculation based on ACTUAL B... AD PRN IV Last administered on 10/06/24at 07:19; Start 10/06/24 at 07:30; Stop 10/10/24 at 08:27; Status DC Heparin Sodium/ Dextrose 250 ml @ 0 mls/hr Q6H IV Last administered on 10/08/24at 14:20; Start 10/06/24 at 07:30; Stop 10/10/24 at 08:17; Status DC Atorvastatin Calcium 40 mg ONCE ONCE PO Last administered on 10/06/24at 21:22; Start 10/06/24 at 21:30; Stop 10/06/24 at 21:31; Status DC Clopidogrel Bisulfate 75 mg ONCE ONCE PO Last administered on 10/06/24at 21:22; Start 10/06/24 at 21:30; Stop 10/06/24 at 21:31; Status DC Metoprolol Tartrate 12.5 mg BID PO Last administered on 10/11/24at 06:32; Start 10/07/24 at 09:00; Stop 10/11/24 at 08:37; Status DC Sodium Chloride 500 ml @ 0 mls/hr Q0M IV; Start 10/06/24 at 21:30; Stop 10/11/24 at 08:37; Status DC Lidocaine HCl 20 ml STK-MED ONCE .ROUTE; Start 10/07/24 at 16:23; Stop 10/07/24 at 16:23; Status DC Iohexol 75 ml STK-MED ONCE IV; Start 10/07/24 at 16:23; Stop 10/07/24 at 16:23; Status DC Heparin Sodium (Porcine) 10,000 unit STK-MED ONCE .ROUTE; Start 10/07/24 at 16:23; Stop 10/07/24 at 16:23; Status DC Heparin Sodium/ Sodium Chloride 1,000 ml @ As Directed STK-MED ONCE IV; Start 10/07/24 at 16:23; Stop 10/07/24 at 16:23; Status DC Nitroglycerin 50 mg STK-MED ONCE .ROUTE; Start 10/07/24 at 16:23; Stop 10/07/24 at 16:23; Status DC Fentanyl Citrate 100 mcg STK-MED ONCE .ROUTE; Start 10/07/24 at 16:24; Stop 10/07/24 at 16:24; Status DC Midazolam HCl 2 mg STK-MED ONCE .ROUTE; Start 10/07/24 at 16:24; Stop 10/07/24 at 16:24; Status DC Nicardipine HCl 25 mg STK-MED ONCE IV; Start 10/07/24 at 16:24; Stop 10/07/24 at 16:24; Status DC Sodium Chloride 10 ml Q8H IVP Last administered on 10/19/24at 16:54; Start 10/07/24 at 17:30; Stop 11/06/24 at 17:29 Pharmacy Profile Note 1 each ONCE MISC Last administered on 10/07/24at 23:37; Start 10/07/24 at 17:30; Stop 10/08/24 at 07:12; Status DC Atorvastatin Calcium 20 mg HS PO Last administered on 10/10/24at 20:55; Start 10/08/24 at 21:00; Stop 10/11/24 at 08:37; Status DC Levothyroxine Sodium 100 mcg SYN PO Last administered on 10/19/24at 06:51; Start 10/09/24 at 06:30; Stop 11/08/24 at 06:29 Heparin Sodium/ Dextrose 250 ml @ 0 mls/hr Q6H IV; Start 10/10/24 at 09:00; Stop 10/10/24 at 08:26; Status DC Cefazolin Sodium 2 gm ONCALL PRN IVP; Start 10/10/24 at 12:00; Stop 10/12/24 at 11:59; Status DC Tramadol HCl 25 mg Q6H PRN PO Last administered on 10/10/24at 16:13; Start 10/10/24 at 14:30; Stop 10/11/24 at 08:37; Status DC Cyclobenzaprine HCl 5 mg TID PRN PO; Start 10/10/24 at 14:30; Stop 10/11/24 at 08:37; Status DC Epinephrine HCl 10 mg/Sodium Chloride 250 ml @ 0 mls/hr AD PRN IV; Start 10/11/24 at 07:00; Stop 10/11/24 at 09:01; Status DC Norepinephrine Bitartrate 250 ml @ 0 mls/hr AD PRN IV; Start 10/11/24 at 07:00; Stop 10/11/24 at 09:03; Status DC Aminocaproic Acid 47948 mg/Sodium Chloride 480 ml @ 0 mls/hr AD PRN IV; Start 10/11/24 at 07:00; Stop 11/10/24 at 06:59 Cefazolin Sodium 1 gm STK-MED ONCE .ROUTE; Start 10/11/24 at 06:50; Stop 10/11/24 at 06:51; Status DC Heparin Sodium/ Sodium Chloride 500 ml @ As Directed STK-MED ONCE IV; Start 10/11/24 at 06:51; Stop 10/11/24 at 06:51; Status DC Papaverine HCl 60 mg STK-MED ONCE .ROUTE; Start 10/11/24 at 06:51; Stop 10/11/24 at 06:51; Status DC Cefazolin Sodium 2 gm STK-MED ONCE .ROUTE; Start 10/11/24 at 06:53; Stop 10/11/24 at 06:54; Status DC Sodium Chloride 1,000 ml @ As Directed STK-MED ONCE IV; Start 10/11/24 at 06:53; Stop 10/11/24 at 06:54; Status DC Protamine Sulfate 250 mg STK-MED ONCE IV; Start 10/11/24 at 07:56; Stop 10/11/24 at 07:56; Status DC Lidocaine HCl 100 mg STK-MED ONCE .ROUTE; Start 10/11/24 at 07:56; Stop 10/11/24 at 07:56; Status DC Heparin Sodium (Porcine) 10,000 unit STK-MED ONCE .ROUTE; Start 10/11/24 at 07:56; Stop 10/11/24 at 07:56; Status DC Epinephrine HCl 1 mg STK-MED ONCE .ROUTE; Start 10/11/24 at 07:56; Stop 10/11/24 at 07:56; Status DC Sodium Bicarbonate 200 ml @ As Directed STK-MED ONCE .ROUTE; Start 10/11/24 at 07:56; Stop 10/11/24 at 07:56; Status DC Norepinephrine Bitartrate 4 mg STK-MED ONCE IV; Start 10/11/24 at 07:56; Stop 10/11/24 at 07:56; Status DC Fentanyl Citrate 1,000 mcg STK-MED ONCE IJ; Start 10/11/24 at 07:56; Stop 10/11/24 at 07:57; Status DC Propofol 200 mg STK-MED ONCE IV; Start 10/11/24 at 07:57; Stop 10/11/24 at 07:57; Status DC Midazolam HCl 2 mg STK-MED ONCE .ROUTE; Start 10/11/24 at 07:57; Stop 10/11/24 at 07:57; Status DC Rocuronium Hendricks 50 mg STK-MED ONCE .ROUTE; Start 10/11/24 at 07:57; Stop 10/11/24 at 07:57; Status DC Ketamine HCl 50 mg STK-MED ONCE .ROUTE; Start 10/11/24 at 07:57; Stop 10/11/24 at 07:58; Status DC Nitroglycerin/ Dextrose 1 ml @ As Directed STK-MED ONCE .ROUTE; Start 10/11/24 at 08:27; Stop 10/11/24 at 08:27; Status DC Atorvastatin Calcium 40 mg HS PO Last administered on 10/13/24at 20:32; Start 10/11/24 at 21:00; Stop 10/14/24 at 09:11; Status DC Acetaminophen 1,000 mg Q6H6 IV Last administered on 10/12/24at 05:06; Start 10/11/24 at 12:00; Stop 10/12/24 at 11:59; Status DC Aspirin 81 mg ONCE ONCE NG; Start 10/11/24 at 12:00; Stop 10/11/24 at 08:42; Status DC Docusate Sodium 100 mg BID PO Last administered on 10/16/24at 09:01; Start 10/12/24 at 09:00; Stop 10/17/24 at 10:46; Status DC Lactulose 20 gm BID PRN PO; Start 10/11/24 at 09:00; Stop 11/10/24 at 08:59 Furosemide 20 mg Q12H PO Last administered on 10/19/24at 08:42; Start 10/13/24 at 09:00; Stop 11/12/24 at 08:59 Furosemide 20 mg Q12H IV Last administered on 10/12/24at 21:18; Start 10/12/24 at 09:00; Stop 10/13/24 at 08:59; Status DC Enoxaparin Sodium 30 mg DAILY SQ; Start 10/14/24 at 09:00; Stop 10/11/24 at 14:00; Status DC Metoprolol Tartrate 12.5 mg BID PO Last administered on 10/19/24at 08:42; Start 10/13/24 at 09:00; Stop 11/12/24 at 08:59 Magnesium Hydroxide 30 ml DAILY PRN PO; Start 10/11/24 at 09:00; Stop 11/10/24 at 08:59 Dexmedetomidine/ Sodium Chloride 400 mcg PROTOCOL IV; Start 10/11/24 at 09:00; Stop 10/12/24 at 08:59; Status DC Acetaminophen 650 mg Q6H PRN PO Last administered on 10/18/24at 01:55; Start 10/11/24 at 09:00; Stop 11/10/24 at 08:59 Sodium Chloride 1,000 ml @ 10 mls/hr ONCE IV; Start 10/11/24 at 09:00; Stop 10/11/24 at 08:52; Status DC Sodium Chloride 10 ml Q8H PRN IVP; Start 10/11/24 at 09:00; Stop 11/10/24 at 08:59 Morphine Sulfate 0.5 mg Q2H PRN IV; Start 10/11/24 at 09:00; Stop 10/12/24 at 08:59; Status DC Morphine Sulfate 1 mg Q2H PRN IV; Start 10/11/24 at 09:00; Stop 10/16/24 at 11:59; Status DC Acetaminophen 650 mg Q4H PRN RC; Start 10/11/24 at 09:00; Stop 11/10/24 at 08:59 Ondansetron HCl 4 mg Q6H PRN IV Last administered on 10/13/24at 08:20; Start 10/11/24 at 09:00; Stop 11/10/24 at 08:59 Sodium Chloride 500 ml @ 0 mls/hr AD IV; Start 10/11/24 at 09:00; Stop 11/10/24 at 08:59 Nitroglycerin/ Dextrose 0 ml @ 0 mls/hr AD IV Last administered on 10/11/24at 12:00; Start 10/11/24 at 09:00; Stop 10/14/24 at 08:59; Status DC Propofol 100 ml @ 0 mls/hr AD PRN IV; Start 10/11/24 at 09:00; Stop 10/15/24 at 08:59; Status DC Norepinephrine Bitartrate 250 ml @ 0 mls/hr AD PRN IV Last administered on 10/12/24at 08:08; Start 10/11/24 at 09:00; Stop 11/10/24 at 08:59 Epinephrine HCl 10 mg/Sodium Chloride 250 ml @ 7.716 mls/ hr AD PRN IV; Start 10/11/24 at 09:00; Stop 10/16/24 at 08:59; Status DC Aminocaproic Acid 42259 mg/Sodium Chloride 310 ml @ 25 mls/hr AD IV; Start 10/11/24 at 09:00; Stop 10/11/24 at 08:54; Status DC Calcium Gluconate 1 gm/Sodium Chloride 60 ml @ 200 mls/hr AD PRN IV Last administered on 10/13/24at 17:20; Start 10/11/24 at 09:00; Stop 11/10/24 at 08:59 Magnesium Sulfate 50 ml @ 12.5 mls/hr AD PRN IV Last administered on 10/19/24at 08:41; Start 10/11/24 at 09:00; Stop 11/10/24 at 08:59 Potassium Chloride 100 ml @ 100 mls/hr AD PRN IV Last administered on 10/16/24at 09:02; Start 10/11/24 at 09:00; Stop 11/10/24 at 08:59 Potassium Phosphate 250 ml @ 42 mls/hr AD PRN IV; Start 10/11/24 at 09:00; Stop 11/10/24 at 08:59 Albumin Human 250 ml @ 0 mls/hr AD PRN IV Last administered on 10/11/24at 23:20; Start 10/11/24 at 09:00; Stop 10/11/24 at 23:20; Status DC Acetaminophen 650 mg Q4H PRN PO; Start 10/11/24 at 09:00; Stop 11/10/24 at 08:59 Insulin Human Regular 100 unit/ Sodium Chloride 100 ml @ 0 mls/hr AD IV Last administered on 10/11/24at 23:19; Start 10/11/24 at 09:00; Stop 10/13/24 at 08:59; Status DC Cefazolin Sodium 2 gm Q8H IVPB Last administered on 10/12/24at 06:21; Start 10/11/24 at 14:00; Stop 10/12/24 at 06:01; Status DC Tramadol HCl 25 mg Q6H PRN PO; Start 10/11/24 at 09:00; Stop 10/16/24 at 08:59; Status DC Tramadol HCl 50 mg Q6H PRN PO Last administered on 10/14/24at 08:29; Start 10/11/24 at 09:00; Stop 10/16/24 at 08:59; Status DC Famotidine 20 mg BID IV; Start 10/11/24 at 09:00; Stop 10/11/24 at 09:03; Status DC Sodium Bicarbonate 50 meq AD PRN IV Last administered on 10/11/24at 18:14; Start 10/11/24 at 09:00; Stop 10/14/24 at 08:59; Status DC Dextrose 50 ml AD PRN IV; Start 10/11/24 at 09:00; Stop 10/13/24 at 07:52; Status DC Glucagon 1 mg AD PRN IM; Start 10/11/24 at 09:00; Stop 10/13/24 at 07:52; Status DC Sodium Chloride 1,000 ml @ 10 mls/hr ONCE ONCE IV Last administered on 10/11/24at 10:30; Start 10/11/24 at 09:00; Stop 10/14/24 at 09:10; Status DC Famotidine 20 mg Q24H IV Last administered on 10/19/24at 08:38; Start 10/11/24 at 09:30; Stop 11/10/24 at 08:59 Vasopressin 20 units STK-MED ONCE .ROUTE; Start 10/11/24 at 09:42; Stop 10/11/24 at 09:42; Status DC Ephedrine Sulfate 50 mg STK-MED ONCE .ROUTE; Start 10/11/24 at 09:42; Stop 10/11/24 at 09:43; Status DC Protamine Sulfate 250 mg STK-MED ONCE IV; Start 10/11/24 at 09:54; Stop 10/11/24 at 09:54; Status DC Protamine Sulfate 50 mg STK-MED ONCE .ROUTE; Start 10/11/24 at 09:54; Stop 10/11/24 at 09:54; Status DC Heparin Sodium (Porcine) 10,000 unit STK-MED ONCE .ROUTE; Start 10/11/24 at 09:54; Stop 10/11/24 at 09:54; Status DC Vasopressin 40 units/Sodium Chloride 40 ml @ 0 mls/hr PROTOCOL IV; Start 10/11/24 at 11:00; Stop 11/10/24 at 10:59 Lidocaine HCl/ Dextrose 250 ml @ 0 mls/hr AD PRN IV Last administered on 10/12/24at 14:44; Start 10/11/24 at 11:00; Stop 10/12/24 at 19:18; Status DC Lidocaine HCl/ Dextrose 250 ml @ As Directed STK-MED ONCE IV; Start 10/11/24 at 10:57; Stop 10/11/24 at 10:57; Status DC Amiodarone HCl 150 mg/Dextrose 103 ml @ 618 mls/hr ONCE IV Last administered on 10/11/24at 11:57; Start 10/11/24 at 12:00; Stop 10/11/24 at 12:09; Status DC Amiodarone HCl 360 mg/Dextrose 207.2 ml @ 33.3 mls/hr AD IV Last administered on 10/11/24at 12:04; Start 10/11/24 at 12:00; Stop 10/12/24 at 19:18; Status DC Amiodarone HCl 540 mg/Dextrose 310.8 ml @ 16.7 mls/hr [id number] IV Last administered on 10/11/24at 18:20; Start 10/11/24 at 12:00; Stop 11/10/24 at 11:59; Status Hold Atropine Sulfate 1 mg STK-MED ONCE IVP; Start 10/11/24 at 12:42; Stop 10/11/24 at 12:42; Status DC Iohexol 35,000 mg STK-MED ONCE IV; Start 10/11/24 at 12:42; Stop 10/11/24 at 12:42; Status DC Heparin Sodium (Porcine) 10,000 unit STK-MED ONCE .ROUTE; Start 10/11/24 at 12:42; Stop 10/11/24 at 12:42; Status DC Heparin Sodium/ Sodium Chloride 1,000 ml @ As Directed STK-MED ONCE IV; Start 10/11/24 at 12:42; Stop 10/11/24 at 12:43; Status DC Nitroglycerin 50 mg STK-MED ONCE .ROUTE; Start 10/11/24 at 12:42; Stop 10/11/24 at 12:43; Status DC Lidocaine HCl 20 ml STK-MED ONCE .ROUTE; Start 10/11/24 at 12:43; Stop 10/11/24 at 12:43; Status DC Bivalirudin 250 mg STK-MED ONCE IV; Start 10/11/24 at 13:27; Stop 10/11/24 at 13:27; Status DC Iohexol 35,000 mg STK-MED ONCE IV; Start 10/11/24 at 13:34; Stop 10/11/24 at 13:34; Status DC Clopidogrel Bisulfate 300 mg STK-MED ONCE .ROUTE; Start 10/11/24 at 13:45; Stop 10/11/24 at 13:47; Status DC Clopidogrel Bisulfate 75 mg DAILY PO Last administered on 10/19/24at 08:38; Start 10/12/24 at 09:00; Stop 11/11/24 at 08:59 Heparin Sodium/ Dextrose 250 ml @ 0 mls/hr PROTOCOL IV Last administered on 10/11/24at 16:14; Start 10/11/24 at 16:00; Stop 10/12/24 at 19:18; Status DC Dextrose 50 ml AD PRN IV; Start 10/11/24 at 15:00; Stop 11/10/24 at 14:59 Glucagon 1 mg AD PRN IM; Start 10/11/24 at 15:00; Stop 11/10/24 at 14:59 Heparin Sodium/ Dextrose 250 ml @ 0 mls/hr PROTOCOL IV; Start 10/11/24 at 16:00; Stop 10/11/24 at 15:24; Status DC Cefazolin Sodium 2 gm STK-MED ONCE IVPB Last administered on 10/11/24at 08:30; Start 10/11/24 at 08:30; Stop 10/11/24 at 20:01; Status DC Cefazolin Sodium 1 gm STK-MED ONCE IRRIG Last administered on 10/11/24at 09:00; Start 10/11/24 at 09:00; Stop 10/11/24 at 20:01; Status DC Papaverine HCl 60 mg STK-MED ONCE IRRIG Last administered on 10/11/24at 09:00; Start 10/11/24 at 09:00; Stop 10/11/24 at 20:01; Status DC Heparin Sodium (Porcine) 5,000 unit STK-MED ONCE IRRIG Last administered on 10/11/24at 09:00; Start 10/11/24 at 09:00; Stop 10/11/24 at 20:01; Status DC Furosemide 20 mg ONCE ONCE IV; Start 10/12/24 at 02:30; Stop 10/12/24 at 02:31; Status DC Furosemide 20 mg STK-MED ONCE .ROUTE Last administered on 10/12/24at 02:20; Start 10/12/24 at 02:16; Stop 10/12/24 at 02:17; Status DC Albumin Human 250 ml @ As Directed STK-MED ONCE IV Last administered on 10/12/24at 21:19; Start 10/12/24 at 17:49; Stop 10/12/24 at 17:50; Status DC Amiodarone HCl 200 mg DAILY PO Last administered on 10/19/24at 08:38; Start 10/13/24 at 09:00; Stop 11/12/24 at 08:59 Insulin Human Regular INSULIN SLIDING SCAL... ACHS SQ Last administered on 10/19/24at 11:58; Start 10/13/24 at 11:30; Stop 11/12/24 at 11:29 Potassium Chloride 20 meq AD PRN PO Last administered on 10/19/24at 11:58; Start 10/14/24 at 09:00; Stop 11/13/24 at 08:59 Atorvastatin Calcium 40 mg HS PO Last administered on 10/18/24at 21:20; Start 10/14/24 at 21:00; Stop 11/10/24 at 20:59 Iron Sucrose 200 mg ONCE ONCE IV; Start 10/17/24 at 18:00; Stop 10/14/24 at 18:16; Status DC Folic Acid 1 mg DAILY PO Last administered on 10/19/24at 08:38; Start 10/15/24 at 21:00; Stop 11/14/24 at 20:59 Vitamin B Complex 1,000 mcg DAILY PO Last administered on 10/19/24at 08:38; Start 10/15/24 at 21:00; Stop 11/14/24 at 20:59 Iron Sucrose 200 mg AD IV; Start 10/14/24 at 18:30; Stop 10/14/24 at 18:34; Status DC Iron Sucrose 200 mg Q24H IV Last administered on 10/16/24at 18:32; Start 10/14/24 at 19:00; Stop 10/16/24 at 19:01; Status DC Furosemide 20 mg ONCE ONCE IV; Start 10/16/24 at 12:00; Stop 10/16/24 at 12:01; Status DC Docusate Sodium 100 mg BID PRN PO; Start 10/17/24 at 11:00; Stop 11/11/24 at 08:59 Potassium Chloride 20 meq STK-MED ONCE PO; Start 10/19/24 at 08:37; Stop 10/19/24 at 08:37; Status DC GUANACO ORELLANA MD Oct 19, 2024 18:51
--- NOTE | 2024-10-19 18:54 | PN ---
"[facility] PROGRESS NOTE Date Patient Seen: Oct 19, 2024 Time of Visit: 18:49 Supervising Physician: GARY GORDON MD Primary Care Physician: Maine Euceda MD Outpatient Specialists: Inpatient Consults: CV Surgery Dr Licona, Dr Ravi MD, BIS Attending physician|: Kali Carroll MD PROBLEM LIST: Status post CABG x [address] elevation myocardial infarction on admission Dilated cardiomyopathy Acute systolic heart failure exacerbation, EF 35% Atrial fibrillation with RVR Hypertension Type 2 diabetes mellitus Hypothyroidism Chronic kidney disease stage III-A secondary to diabetes mellitus Raynaud's phenomenon GERD GI bleed INTERVAL HISTORY: She is is stable, afebrile, no distress she is on room air, no cough, no congestion denies palpitations good appetite up and ambulatory no fevers, no chills no diarrhea Overall, better than yesterday REVIEW OF SYSTEMS: 12 point ROS reviewed with patient. Pertinent positives mentioned above. Otherwise negative. PHYSICAL EXAM: GENERAL: Post CABG , recovering HEENT: Sclera non icteric, moist mucosa NECK: Supple, no JVD, trachea midline Rt IJ LUNGS: Clear breath sounds to all lobes bilaterally. No wheezes HEART: Regular rate and rhythm. Normal S1 and S2, without murmurs , incision open to air. healing well ABD: Abdomen soft, nontender. Bowel sounds present EXT: No clubbing cyanosis +1 pitting edema to BLE. pulses palpable. cap refill < 3 seconds to carlos feet. NEURO: GCS 15 no focal weakness. Vital Signs (last 8hr) Date Time Temp Pulse Resp B/P (MAP) Pulse Ox O2 Delivery O2 Flow Rate FiO2 10/19/24 16:00 98.6 75 20 133/57 99 Room Air 10/19/24 12:29 98.6 75 20 136/65 98 Room Air LABS: Hematology Labs: Test 10/19/24 03:24 Range/Units White Blood Count 14.1 H 4.8-10.8 K/uL Red Blood Count 3.81 L 4.00-5.50 MIL/uL Hemoglobin 11.0 L 12.0-16.0 g/dL Hematocrit 34.4 L 36-48 % Mean Corpuscular Volume 90.3 79-99 fL Mean Corpuscular Hemoglobin 28.9 27.0-33.0 pg Mean Corpuscular Hemoglobin Concent 32.0 32.0-36.0 g/dL Red Cell Distribution Width 18.2 H 11.0-15.5 % Platelet Count 330 # 130-400 K/uL Mean Platelet Volume 10.1 7.5-10.5 fL Immature Granulocyte % (Auto) 2.7 H 0-1 % Neutrophils (%) (Auto) 72.6 40.0-77.0 % Lymphocytes (%) (Auto) 14.6 L 21.0-51.0 % Monocytes (%) (Auto) 7.4 3.0-13.0 % Eosinophils (%) (Auto) 2.1 0.0-8.0 % Basophils (%) (Auto) 0.6 0.0-5.0 % Neutrophils # (Auto) 10.3 H 1.8-7.7 K/uL Lymphocytes # (Auto) 2.1 1.0-4.8 K/uL Monocytes # (Auto) 1.0 0.1-1.0 K/uL Eosinophils # (Auto) 0.30 0.00-0.70 K/uL Basophils # (Auto) 0.09 0.00-0.20 K/uL Absolute Immature Granulocyte (auto 0.38 0-1 K/uL Nucleated Red Blood Cells 0.2 H 0.0-0.19 % Red Blood Cell Morphology See comments Chemistry Labs: Test 10/19/24 15:59 10/19/24 03:24 10/18/24 03:31 Range/Units Whole Blood Glucose 122 H 70-110 MG/DL Sodium Level 137 136-145 mmol/L Potassium Level 3.8 3.5-5.1 mmol/L Chloride Level 103 101-111 mmol/L Carbon Dioxide Level 30 21-32 mmol/L Blood Urea Nitrogen 12 7-18 mg/dL Creatinine 0.7 0.5-1.0 mg/dL Glomerular Filtration Rate Calc 88 >90 mL/min Random Glucose 107 H 70-105 mg/dL Total Calcium 8.1 L 8.5-10.1 mg/dL Magnesium Level 1.70 L 1.80-2.40 mg/dL Total Bilirubin 0.9 0.2-1.0 mg/dL Aspartate Amino Transf (AST/SGOT) 34 10-37 U/L Alanine Aminotransferase (ALT/SGPT) 15 12-78 U/L Alkaline Phosphatase 59 50-136 U/L Total Protein 5.3 L 6.0-8.3 g/dL Albumin 2.3 L 3.5-5.0 g/dL DIAGNOSTICS / RADIOLOGY RESULTS: [ Reviewed at bedside, no evidence of pulmonary effusions ] PLAN Optimize blood pressure medications Incentive spirometry up and ambulatory ad valerie NEURO: Minimize central acting medications as possible. Maintain fall precautions, adequate lighting during the day PULMONARY: Supplemental 02 as needed. Maintain aspiration precautions at all times CARDIOVASCULAR: Follow hemodynamics. Vital signs per facility protocol GI & NUTRITION: Continue with nutritional support. Continue stool softeners and laxatives as needed. KIDNEYS & ELECTROLYTES: Strict monitoring of intake, output and overall fluid balance. Avoid nephrotoxic medications to the extent possible. Medications to be dosed according to renal function. Monitor electrolytes and replace as needed ENDOCRINE: Maintain blood glucose between 100-180 at all times. Hypoglycemia protocol in place INFECTIOUS DISEASE: Trend temperature, WBC and procalcitonin level Follow cultures, deescalate antibiotics as soon as possible. Panculture if new onset fever ONCOLOGY/HEMATOLOGY/COAGULATION: Monitor for s/s of bleeding Monitor hemoglobin, coagulation studies as needed SKIN: Pressure ulcer prevention per facility protocol Specialty mattress ORTHO/REHAB: Continue PT/OT Prophylaxis: Continue GI and DVT prophylaxis Code Status: Full Resuscitation Disposition: As per primary Progress note scribed by Rashel Villanueva and I can attest to the medical accuracy and veracity of the note. I personally scribed for GARY GORDON MD ([email or web address]) on 10/19/24 at 18:54. Electronically submitted by Rashel Villanueva ([email or web address]). GARY GORDON MD Oct 19, 2024 18:54"
[2024-10-20] VITALS (8 sets, daily range): BP systolic 111–121; BP diastolic 54–65; PULSE 71–79; RESP 16–18; TEMP 97.5–98.2; O2SAT 97
--- NOTE | 2024-10-20 01:28 | PN ---
TIME: 10:00 a.m. SUBJECTIVE: The patient is a 79-year-old status post coronary artery bypass grafting. No major events overnight, recovering well so far. PHYSICAL EXAMINATION: NEUROLOGIC: Alert and oriented, no deficits. CARDIAC: S1, S2, regular rate and rhythm. RESPIRATORY: Clear to auscultation bilaterally. ASSESSMENT AND PLAN: * Coronary artery disease, status post coronary artery bypass grafting, on aspirin, statin, beta-estefania, recovering well. * Volume overload, on Lasix IV b.i.d. * Hypercholesterolemia, on high statin therapy. Overall, recovering quite well. She is awaiting for disposition at this time. TID: [id number] RECEIPT: [id number]
[2024-10-20 03:53] LABS: BASOPHILS # (AUTO) 0.08 K/uL (0.00-0.20); BASOPHILS % (AUTO) 0.6 % (0.0-5.0); EOSINOPHILS # (AUTO) 0.32 K/uL (0.00-0.70); EOSINOPHILS % (AUTO) 2.3 % (0.0-8.0); HEMATOCRIT 34.7 % (36-48); IMMATURE GRANULOCYTE ABSOLUTE 0.29 K/uL (0-1); LYMPHOCYTES # (AUTO) 2.1 K/uL (1.0-4.8); LYMPHOCYTES % (AUTO) 14.9 % (21.0-51.0); MEAN CORPUSCULAR HEMOGLOBIN 29.6 pg (27.0-33.0); MEAN CORPUSCULAR HGB CONC 32.3 g/dL (32.0-36.0); MEAN CORPUSCULAR VOLUME 91.6 fL (79-99); MONOCYTES # (AUTO) 1.2 K/uL (0.1-1.0); MONOCYTES % (AUTO) 8.6 % (3.0-13.0); NEUTROPHILS # (AUTO) 10.2 K/uL (1.8-7.7); NEUTROPHILS % (AUTO) 71.6 % (40.0-77.0); NUCLEATED RED BLOOD CELLS 0.1 % (0.0-0.19); PLATELET COUNT (AUTO) 382 K/uL (130-400); RED BLOOD CELL COUNT(AUTO) 3.79 MIL/uL (4.00-5.50); RED CELL DISTRIBUTION WIDTH 18.3 % (11.0-15.5); WHITE BLOOD COUNT (AUTO) 14.2 K/uL (4.8-10.8)
[2024-10-20 04:04] LABS: CREATININE 0.7 mg/dL (0.5-1.0)
--- NOTE | 2024-10-20 11:12 | PN ---
CARDIOLOGY Reason for consult: NSTEMI HPI/story at presentation: This is a pleasant 79-year-old female with past medical history as below presents for chest discomfort. Patient was having mostly back pain and bilateral shoulder pain that was present yesterday morning and then subsequently, was in the ER for further evaluation and had significant elevated troponins therefore, cardiology was consulted for further evaluation and management Subjective: 10/06/2024 no active cardiac complaints 10/07/2024 no chest pain 10/08/2024 no further symptoms 10/09/2024 no complaints 10/10/2024 no complaints 10/11/2024 intubated 10/13/2024 no complaints 10/14/2024 no complaints 10/16/2024 doiarrhea 10/17/2024 no complaints 10/18/2024 no complaints 10/19/2024 no complaints 10/20/2024 no complaints Past medical history: See below Allergies, Meds See chart ros as noted on in HPI Vitals see chart PHYSICAL EXAMINATION GENERAL: intubated 10/11/2024 HEENT: Nonicteric sclerae, non traumatic HEART: Regular rate and rhythm with no murmurs LUNGS:intubated 10/11/2024 ABDOMEN: No acute issues, non tender GENITAL, RECTAL: deferred SKIN: No rash NEUROLOGIC: intubated 10/11/2024 EXTREMITIES: No edema ASSESSMENT NSTEMI,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 Plan for cardiac catheterization tomorrow to further evaluate coronaries Echo pending. risk-benefit discussed extensively and patient wants to proceed. 10/07/2024 Cardiac catheterization today for further evaluation of non-STEMI. Risk-benefit discussed. Primary team addressing possible scleroderma given issues with dysphagia. No active chest pain at this time echo with EF of 35- 40%, on metoprolol aspirin - add statin 10/08/2024 No active cardiac complaints at this time, no further issues with chest or back pain, awaiting final decision from CV surgery regarding surgery. Continue maximal medical therapy. 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 There is a question of GI bleeding with dark stools. Will get an occult blood and hold heparin for now. On atorvastatin beta-estefania and aspirin, continue. Hemoglobin stable. Carotid duplex was negative. Seen and examined 10/04/2024 at around 5 PM 10/09/2024 Was previously evaluated CV surgery, timing of surgery to be determined. On statin beta-estefania aspirin. Labs okay, occult blood has been ordered and is still pending. No further issues with dark stools per report. Currently off anticoagulation. Seen and examined 10/09/2024 at around 1730 10/10/2024 Had an episode of chest discomfort/upper back pain, managed conservatively at this time, heparin was not started. Troponins are trending down. Potential plans for surgery tomorrow. Patient however, thinks this might be related to spinal issues. Seen and examined 10/10/2024 at around 0900 10/11/2024 I was called in the late morning today by Dr. العراقي with concerns of ST elevations after surgery. Patient was taken emergently to cardiac catheterization and underwent intervention to the LAD. Patient had an occluded WILSON. Postprocedure, patient was doing well with hemodynamic stability and improvement in pressor requirements. Potential plans for extubation also noted. Seen and examined 10/11/2024 multiple times 10/12/2024 Extubated, blood pressures are doing okay off pressors. Currently, plan is to get off the balloon pump and then reevaluate. On antiplatelet therapy, s/p PCI to the LAD yesterday in the setting of NSTEMI. Bypass. Recovering well. Family at bedside, questions answered. Plan to switch amiodarone to p.o., agree with stopping lidocaine. Anemia will need to be addressed, transfuse as needed. Seen and examined 10/12/2024 at around 1700 10/13/2024 Doing well, hemodynamic stable, not any pressors, had issues with hematoma from the balloon pump yesterday and did receive 1 unit of transfusion. Otherwise, doing well, states that she is on the left 24, not very ambulatory at this time. Asking to be able to get up hopefully, this can be accomplished tomorrow or day after once the left-sided sheath is out. Appreciate CV surgery, critical care. Currently on Plavix in spite of thrombocytopenia given recent PCI to the LAD. On Amio beta-estefania Lasix Plavix atorvastatin. No longer on lidocaine. Watch hemoglobin. Renal function slightly elevated as well but this is better than yesterday. 10/14/2024 Was on nitroglycerin during the mornings but blood pressures are now better off nitro. Otherwise, doing well. No active cardiac complaints at this time. Appreciate CV surgery. Critical care. Having issues with diarrhea, small, will need to be watched. Sheath to be removed later today hemoglobin being replaced oncology on board anemia. X-ray with improvement. Currently on metoprolol Lasix Plavix statin aspirin amiodarone from a cardiac standpoint. Seen and examined at around 10 AM 10/15/2024 Feeling better, no active cardiac complaints at this time. Art line has been removed. Sitting by the side of the bed today. Still feeling tired but improving. Physical therapy on board. Getting blood hematology on board, seen and examined 10/15/2024 at around 1130AM 10/16/2024 Continuing to have issues with diarrhea and headaches. Currently on the floor. Pressure primary team. Ambulating more, awaiting eventual placement and therapy/rehab. Currently on metoprolol, Lasix, Plavix statin and aspirin continue. Seen and examined 10/16/2024 at around 1800. 10/17/2024 Still having issues with diarrhea but patient was also getting docusate which is a likely contributing factor. GI currently on board to further evaluate for bleeding. Scan was negative except for right groin pseudo, will get an arterial duplex. Working with therapy. 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 Will repeat another duplex tomorrow to recheck on the size of the aneurysm and to ensure resolution. Seen and examined 10/18/2024 around 1700 10/19/2024 Ultrasound completed today with resolution of pseudoaneurysm, overall doing well, ambulating more. seen and examined 10/19/2024 at around 1800 10/20/2024 Doing well, ambulating more. No active cardiac complaints at this time. Continue max medical therapy for underlying CAD. No history of cardiomyopathy as well. Increase ambulation recommended, will need rehab at discharge. Complains of soreness in her chest and back which improved after Tylenol. Hemoglobin creatinine stable. X-ray from today still pending. Previous resolution of pseudoaneurysm. Currently on metoprolol Lasix Plavix statin aspirin. Can add a small dose of losartan if blood pressure tolerates. ATTESTATION I was involved substantially in the care of this patient Number and complexity of problems addressed: 1 acute illness taht is a threat to life or bodily function Amount and or complexity of data Review of prior external note(s) from each unique source: 2+ Ordering of each unique test : 0 Review of the result(s) of each unique test: 2+ Assessment requiring an independent historian(s): No Independent interpretation of test performed by another MD/QHCP/appropriate source (not separately reported) : No Discussion of management or test interpretation with external MD/QHCP/appropriate source (not separately reported) : yes, CVT surgery Risk status (cardiac, billing related): moderate Vitals/Labs Vital Signs Date Time Temp Pulse Resp B/P (MAP) Pulse Ox O2 Delivery O2 Flow Rate FiO2 10/20/24 09:35 97 Room Air* 0 21 10/20/24 08:08 97.5 79 18 111/57 Laboratory Tests 10/20/24 03:23 Medications Current Medications Morphine Sulfate 2 mg ONCE ONCE IVP Last administered on 10/05/24at 22:22; Start 10/05/24 at 22:30; Stop 10/05/24 at 22:31; Status DC Ketorolac Tromethamine 15 mg ONCE ONCE IV Last administered on 10/05/24at 23:34; Start 10/05/24 at 22:30; Stop 10/05/24 at 22:31; Status DC Nitroglycerin 0.4 mg AD PRN SL; Start 10/05/24 at 22:30; Stop 10/11/24 at 08:37; Status DC Aspirin 162 mg ONCE ONCE PO Last administered on 10/05/24at 23:32; Start 10/05/24 at 23:30; Stop 10/05/24 at 23:31; Status DC Aspirin 81 mg DAILY PO Last administered on 10/20/24at 09:22; Start 10/06/24 at 09:00; Stop 11/05/24 at 08:59 Nitroglycerin 0.5 inch Q8H TD Last administered on 10/10/24at 22:37; Start 10/05/24 at 23:30; Stop 10/11/24 at 08:37; Status DC Ondansetron HCl 4 mg Q6H PRN IV; Start 10/05/24 at 23:30; Stop 10/11/24 at 08:37; Status DC Heparin Sodium (Porcine) 5,000 unit BID SQ; Start 10/06/24 at 09:00; Stop 10/06/24 at 06:29; Status DC Pantoprazole Sodium 40 mg DAILY PO Last administered on 10/10/24at 09:00; Start 10/06/24 at 09:00; Stop 10/11/24 at 08:37; Status DC Acetaminophen 650 mg Q6H PRN PO Last administered on 10/10/24at 06:06; Start 10/05/24 at 23:30; Stop 10/14/24 at 09:10; Status DC Insulin Human Regular INSULIN SLIDING SCAL... ACHS SQ; Start 10/06/24 at 07:30; Stop 10/11/24 at 08:37; Status DC Potassium Chloride 100 ml @ 100 mls/hr AD PRN IV; Start 10/05/24 at 23:30; Stop 10/11/24 at 08:37; Status DC Potassium Chloride 20 meq AD PRN PO Last administered on 10/09/24at 21:00; Start 10/05/24 at 23:30; Stop 10/11/24 at 08:37; Status DC Potassium Chloride 20 meq AD PRN PO; Start 10/05/24 at 23:30; Stop 10/11/24 at 08:37; Status DC Magnesium Sulfate 50 ml @ 0 mls/hr PROTOCOL PRN IV; Start 10/05/24 at 23:30; Stop 10/11/24 at 08:37; Status DC Heparin Sodium (Porcine) *calculation based on ACTUAL B... AD PRN IV Last administered on 10/06/24at 07:19; Start 10/06/24 at 07:30; Stop 10/10/24 at 08:27; Status DC Heparin Sodium/ Dextrose 250 ml @ 0 mls/hr Q6H IV Last administered on 10/08/24at 14:20; Start 10/06/24 at 07:30; Stop 10/10/24 at 08:17; Status DC Atorvastatin Calcium 40 mg ONCE ONCE PO Last administered on 10/06/24at 21:22; Start 10/06/24 at 21:30; Stop 10/06/24 at 21:31; Status DC Clopidogrel Bisulfate 75 mg ONCE ONCE PO Last administered on 10/06/24at 21:22; Start 10/06/24 at 21:30; Stop 10/06/24 at 21:31; Status DC Metoprolol Tartrate 12.5 mg BID PO Last administered on 10/11/24at 06:32; Start 10/07/24 at 09:00; Stop 10/11/24 at 08:37; Status DC Sodium Chloride 500 ml @ 0 mls/hr Q0M IV; Start 10/06/24 at 21:30; Stop 10/11/24 at 08:37; Status DC Lidocaine HCl 20 ml STK-MED ONCE .ROUTE; Start 10/07/24 at 16:23; Stop 10/07/24 at 16:23; Status DC Iohexol 75 ml STK-MED ONCE IV; Start 10/07/24 at 16:23; Stop 10/07/24 at 16:23; Status DC Heparin Sodium (Porcine) 10,000 unit STK-MED ONCE .ROUTE; Start 10/07/24 at 16:23; Stop 10/07/24 at 16:23; Status DC Heparin Sodium/ Sodium Chloride 1,000 ml @ As Directed STK-MED ONCE IV; Start 10/07/24 at 16:23; Stop 10/07/24 at 16:23; Status DC Nitroglycerin 50 mg STK-MED ONCE .ROUTE; Start 10/07/24 at 16:23; Stop 10/07/24 at 16:23; Status DC Fentanyl Citrate 100 mcg STK-MED ONCE .ROUTE; Start 10/07/24 at 16:24; Stop 10/07/24 at 16:24; Status DC Midazolam HCl 2 mg STK-MED ONCE .ROUTE; Start 10/07/24 at 16:24; Stop 10/07/24 at 16:24; Status DC Nicardipine HCl 25 mg STK-MED ONCE IV; Start 10/07/24 at 16:24; Stop 10/07/24 at 16:24; Status DC Sodium Chloride 10 ml Q8H IVP Last administered on 10/20/24at 09:23; Start 10/07/24 at 17:30; Stop 11/06/24 at 17:29 Pharmacy Profile Note 1 each ONCE MISC Last administered on 10/07/24at 23:37; Start 10/07/24 at 17:30; Stop 10/08/24 at 07:12; Status DC Atorvastatin Calcium 20 mg HS PO Last administered on 10/10/24at 20:55; Start 10/08/24 at 21:00; Stop 10/11/24 at 08:37; Status DC Levothyroxine Sodium 100 mcg SYN PO Last administered on 10/20/24at 06:05; Start 10/09/24 at 06:30; Stop 11/08/24 at 06:29 Heparin Sodium/ Dextrose 250 ml @ 0 mls/hr Q6H IV; Start 10/10/24 at 09:00; Stop 10/10/24 at 08:26; Status DC Cefazolin Sodium 2 gm ONCALL PRN IVP; Start 10/10/24 at 12:00; Stop 10/12/24 at 11:59; Status DC Tramadol HCl 25 mg Q6H PRN PO Last administered on 10/10/24at 16:13; Start 10/10/24 at 14:30; Stop 10/11/24 at 08:37; Status DC Cyclobenzaprine HCl 5 mg TID PRN PO; Start 10/10/24 at 14:30; Stop 10/11/24 at 08:37; Status DC Epinephrine HCl 10 mg/Sodium Chloride 250 ml @ 0 mls/hr AD PRN IV; Start 10/11/24 at 07:00; Stop 10/11/24 at 09:01; Status DC Norepinephrine Bitartrate 250 ml @ 0 mls/hr AD PRN IV; Start 10/11/24 at 07:00; Stop 10/11/24 at 09:03; Status DC Aminocaproic Acid 96751 mg/Sodium Chloride 480 ml @ 0 mls/hr AD PRN IV; Start 10/11/24 at 07:00; Stop 11/10/24 at 06:59 Cefazolin Sodium 1 gm STK-MED ONCE .ROUTE; Start 10/11/24 at 06:50; Stop 10/11/24 at 06:51; Status DC Heparin Sodium/ Sodium Chloride 500 ml @ As Directed STK-MED ONCE IV; Start 10/11/24 at 06:51; Stop 10/11/24 at 06:51; Status DC Papaverine HCl 60 mg STK-MED ONCE .ROUTE; Start 10/11/24 at 06:51; Stop 10/11/24 at 06:51; Status DC Cefazolin Sodium 2 gm STK-MED ONCE .ROUTE; Start 10/11/24 at 06:53; Stop 10/11/24 at 06:54; Status DC Sodium Chloride 1,000 ml @ As Directed STK-MED ONCE IV; Start 10/11/24 at 06:53; Stop 10/11/24 at 06:54; Status DC Protamine Sulfate 250 mg STK-MED ONCE IV; Start 10/11/24 at 07:56; Stop 10/11/24 at 07:56; Status DC Lidocaine HCl 100 mg STK-MED ONCE .ROUTE; Start 10/11/24 at 07:56; Stop 10/11/24 at 07:56; Status DC Heparin Sodium (Porcine) 10,000 unit STK-MED ONCE .ROUTE; Start 10/11/24 at 07:56; Stop 10/11/24 at 07:56; Status DC Epinephrine HCl 1 mg STK-MED ONCE .ROUTE; Start 10/11/24 at 07:56; Stop 10/11/24 at 07:56; Status DC Sodium Bicarbonate 200 ml @ As Directed STK-MED ONCE .ROUTE; Start 10/11/24 at 07:56; Stop 10/11/24 at 07:56; Status DC Norepinephrine Bitartrate 4 mg STK-MED ONCE IV; Start 10/11/24 at 07:56; Stop 10/11/24 at 07:56; Status DC Fentanyl Citrate 1,000 mcg STK-MED ONCE IJ; Start 10/11/24 at 07:56; Stop 10/11/24 at 07:57; Status DC Propofol 200 mg STK-MED ONCE IV; Start 10/11/24 at 07:57; Stop 10/11/24 at 07:57; Status DC Midazolam HCl 2 mg STK-MED ONCE .ROUTE; Start 10/11/24 at 07:57; Stop 10/11/24 at 07:57; Status DC Rocuronium [place] 50 mg STK-MED ONCE .ROUTE; Start 10/11/24 at 07:57; Stop 10/11/24 at 07:57; Status DC Ketamine HCl 50 mg STK-MED ONCE .ROUTE; Start 10/11/24 at 07:57; Stop 10/11/24 at 07:58; Status DC Nitroglycerin/ Dextrose 1 ml @ As Directed STK-MED ONCE .ROUTE; Start 10/11/24 at 08:27; Stop 10/11/24 at 08:27; Status DC Atorvastatin Calcium 40 mg HS PO Last administered on 10/13/24at 20:32; Start 10/11/24 at 21:00; Stop 10/14/24 at 09:11; Status DC Acetaminophen 1,000 mg Q6H6 IV Last administered on 10/12/24at 05:06; Start 10/11/24 at 12:00; Stop 10/12/24 at 11:59; Status DC Aspirin 81 mg ONCE ONCE NG; Start 10/11/24 at 12:00; Stop 10/11/24 at 08:42; Status DC Docusate Sodium 100 mg BID PO Last administered on 10/16/24at 09:01; Start 10/12/24 at 09:00; Stop 10/17/24 at 10:46; Status DC Lactulose 20 gm BID PRN PO; Start 10/11/24 at 09:00; Stop 11/10/24 at 08:59 Furosemide 20 mg Q12H PO Last administered on 10/20/24at 09:22; Start 10/13/24 at 09:00; Stop 11/12/24 at 08:59 Furosemide 20 mg Q12H IV Last administered on 10/12/24at 21:18; Start 10/12/24 at 09:00; Stop 10/13/24 at 08:59; Status DC Enoxaparin Sodium 30 mg DAILY SQ; Start 10/14/24 at 09:00; Stop 10/11/24 at 14:00; Status DC Metoprolol Tartrate 12.5 mg BID PO Last administered on 10/20/24at 09:22; Start 10/13/24 at 09:00; Stop 11/12/24 at 08:59 Magnesium Hydroxide 30 ml DAILY PRN PO; Start 10/11/24 at 09:00; Stop 11/10/24 at 08:59 Dexmedetomidine/ Sodium Chloride 400 mcg PROTOCOL IV; Start 10/11/24 at 09:00; Stop 10/12/24 at 08:59; Status DC Acetaminophen 650 mg Q6H PRN PO Last administered on 10/20/24at 09:34; Start 10/11/24 at 09:00; Stop 11/10/24 at 08:59 Sodium Chloride 1,000 ml @ 10 mls/hr ONCE IV; Start 10/11/24 at 09:00; Stop 10/11/24 at 08:52; Status DC Sodium Chloride 10 ml Q8H PRN IVP; Start 10/11/24 at 09:00; Stop 11/10/24 at 08:59 Morphine Sulfate 0.5 mg Q2H PRN IV; Start 10/11/24 at 09:00; Stop 10/12/24 at 08:59; Status DC Morphine Sulfate 1 mg Q2H PRN IV; Start 10/11/24 at 09:00; Stop 10/16/24 at 11:59; Status DC Acetaminophen 650 mg Q4H PRN RC; Start 10/11/24 at 09:00; Stop 11/10/24 at 08:59 Ondansetron HCl 4 mg Q6H PRN IV Last administered on 10/13/24at 08:20; Start 10/11/24 at 09:00; Stop 11/10/24 at 08:59 Sodium Chloride 500 ml @ 0 mls/hr AD IV; Start 10/11/24 at 09:00; Stop 11/10/24 at 08:59 Nitroglycerin/ Dextrose 0 ml @ 0 mls/hr AD IV Last administered on 10/11/24at 12:00; Start 10/11/24 at 09:00; Stop 10/14/24 at 08:59; Status DC Propofol 100 ml @ 0 mls/hr AD PRN IV; Start 10/11/24 at 09:00; Stop 10/15/24 at 08:59; Status DC Norepinephrine Bitartrate 250 ml @ 0 mls/hr AD PRN IV Last administered on 10/12/24at 08:08; Start 10/11/24 at 09:00; Stop 11/10/24 at 08:59 Epinephrine HCl 10 mg/Sodium Chloride 250 ml @ 7.716 mls/ hr AD PRN IV; Start 10/11/24 at 09:00; Stop 10/16/24 at 08:59; Status DC Aminocaproic Acid 32362 mg/Sodium Chloride 310 ml @ 25 mls/hr AD IV; Start 10/11/24 at 09:00; Stop 10/11/24 at 08:54; Status DC Calcium Gluconate 1 gm/Sodium Chloride 60 ml @ 200 mls/hr AD PRN IV Last administered on 10/13/24at 17:20; Start 10/11/24 at 09:00; Stop 11/10/24 at 08:59 Magnesium Sulfate 50 ml @ 12.5 mls/hr AD PRN IV Last administered on 10/19/24at 08:41; Start 10/11/24 at 09:00; Stop 11/10/24 at 08:59 Potassium Chloride 100 ml @ 100 mls/hr AD PRN IV Last administered on 10/16/24at 09:02; Start 10/11/24 at 09:00; Stop 11/10/24 at 08:59 Potassium Phosphate 250 ml @ 42 mls/hr AD PRN IV; Start 10/11/24 at 09:00; Stop 11/10/24 at 08:59 Albumin Human 250 ml @ 0 mls/hr AD PRN IV Last administered on 10/11/24at 23:20; Start 10/11/24 at 09:00; Stop 10/11/24 at 23:20; Status DC Acetaminophen 650 mg Q4H PRN PO; Start 10/11/24 at 09:00; Stop 11/10/24 at 08:59 Insulin Human Regular 100 unit/ Sodium Chloride 100 ml @ 0 mls/hr AD IV Last administered on 10/11/24at 23:19; Start 10/11/24 at 09:00; Stop 10/13/24 at 08:59; Status DC Cefazolin Sodium 2 gm Q8H IVPB Last administered on 10/12/24at 06:21; Start 10/11/24 at 14:00; Stop 10/12/24 at 06:01; Status DC Tramadol HCl 25 mg Q6H PRN PO; Start 10/11/24 at 09:00; Stop 10/16/24 at 08:59; Status DC Tramadol HCl 50 mg Q6H PRN PO Last administered on 10/14/24at 08:29; Start 10/11/24 at 09:00; Stop 10/16/24 at 08:59; Status DC Famotidine 20 mg BID IV; Start 10/11/24 at 09:00; Stop 10/11/24 at 09:03; Status DC Sodium Bicarbonate 50 meq AD PRN IV Last administered on 10/11/24at 18:14; Start 10/11/24 at 09:00; Stop 10/14/24 at 08:59; Status DC Dextrose 50 ml AD PRN IV; Start 10/11/24 at 09:00; Stop 10/13/24 at 07:52; Status DC Glucagon 1 mg AD PRN IM; Start 10/11/24 at 09:00; Stop 10/13/24 at 07:52; Status DC Sodium Chloride 1,000 ml @ 10 mls/hr ONCE ONCE IV Last administered on 10/11/24at 10:30; Start 10/11/24 at 09:00; Stop 10/14/24 at 09:10; Status DC Famotidine 20 mg Q24H IV Last administered on 10/20/24at 09:25; Start 10/11/24 at 09:30; Stop 11/10/24 at 08:59 Vasopressin 20 units STK-MED ONCE .ROUTE; Start 10/11/24 at 09:42; Stop 10/11/24 at 09:42; Status DC Ephedrine Sulfate 50 mg STK-MED ONCE .ROUTE; Start 10/11/24 at 09:42; Stop 10/11/24 at 09:43; Status DC Protamine Sulfate 250 mg STK-MED ONCE IV; Start 10/11/24 at 09:54; Stop 10/11/24 at 09:54; Status DC Protamine Sulfate 50 mg STK-MED ONCE .ROUTE; Start 10/11/24 at 09:54; Stop 10/11/24 at 09:54; Status DC Heparin Sodium (Porcine) 10,000 unit STK-MED ONCE .ROUTE; Start 10/11/24 at 09:54; Stop 10/11/24 at 09:54; Status DC Vasopressin 40 units/Sodium Chloride 40 ml @ 0 mls/hr PROTOCOL IV; Start 10/11/24 at 11:00; Stop 11/10/24 at 10:59 Lidocaine HCl/ Dextrose 250 ml @ 0 mls/hr AD PRN IV Last administered on 10/12/24at 14:44; Start 10/11/24 at 11:00; Stop 10/12/24 at 19:18; Status DC Lidocaine HCl/ Dextrose 250 ml @ As Directed STK-MED ONCE IV; Start 10/11/24 at 10:57; Stop 10/11/24 at 10:57; Status DC Amiodarone HCl 150 mg/Dextrose 103 ml @ 618 mls/hr ONCE IV Last administered on 10/11/24at 11:57; Start 10/11/24 at 12:00; Stop 10/11/24 at 12:09; Status DC Amiodarone HCl 360 mg/Dextrose 207.2 ml @ 33.3 mls/hr AD IV Last administered on 10/11/24at 12:04; Start 10/11/24 at 12:00; Stop 10/12/24 at 19:18; Status DC Amiodarone HCl 540 mg/Dextrose 310.8 ml @ 16.7 mls/hr [id number] IV Last administered on 10/11/24at 18:20; Start 10/11/24 at 12:00; Stop 11/10/24 at 11:59; Status Hold Atropine Sulfate 1 mg STK-MED ONCE IVP; Start 10/11/24 at 12:42; Stop 10/11/24 at 12:42; Status DC Iohexol 35,000 mg STK-MED ONCE IV; Start 10/11/24 at 12:42; Stop 10/11/24 at 12:42; Status DC Heparin Sodium (Porcine) 10,000 unit STK-MED ONCE .ROUTE; Start 10/11/24 at 12:42; Stop 10/11/24 at 12:42; Status DC Heparin Sodium/ Sodium Chloride 1,000 ml @ As Directed STK-MED ONCE IV; Start 10/11/24 at 12:42; Stop 10/11/24 at 12:43; Status DC Nitroglycerin 50 mg STK-MED ONCE .ROUTE; Start 10/11/24 at 12:42; Stop 10/11/24 at 12:43; Status DC Lidocaine HCl 20 ml STK-MED ONCE .ROUTE; Start 10/11/24 at 12:43; Stop 10/11/24 at 12:43; Status DC Bivalirudin 250 mg STK-MED ONCE IV; Start 10/11/24 at 13:27; Stop 10/11/24 at 13:27; Status DC Iohexol 35,000 mg STK-MED ONCE IV; Start 10/11/24 at 13:34; Stop 10/11/24 at 13:34; Status DC Clopidogrel Bisulfate 300 mg STK-MED ONCE .ROUTE; Start 10/11/24 at 13:45; Stop 10/11/24 at 13:47; Status DC Clopidogrel Bisulfate 75 mg DAILY PO Last administered on 10/20/24at 09:23; Start 10/12/24 at 09:00; Stop 11/11/24 at 08:59 Heparin Sodium/ Dextrose 250 ml @ 0 mls/hr PROTOCOL IV Last administered on 10/11/24at 16:14; Start 10/11/24 at 16:00; Stop 10/12/24 at 19:18; Status DC Dextrose 50 ml AD PRN IV; Start 10/11/24 at 15:00; Stop 11/10/24 at 14:59 Glucagon 1 mg AD PRN IM; Start 10/11/24 at 15:00; Stop 11/10/24 at 14:59 Heparin Sodium/ Dextrose 250 ml @ 0 mls/hr PROTOCOL IV; Start 10/11/24 at 16:00; Stop 10/11/24 at 15:24; Status DC Cefazolin Sodium 2 gm STK-MED ONCE IVPB Last administered on 10/11/24at 08:30; Start 10/11/24 at 08:30; Stop 10/11/24 at 20:01; Status DC Cefazolin Sodium 1 gm STK-MED ONCE IRRIG Last administered on 10/11/24at 09:00; Start 10/11/24 at 09:00; Stop 10/11/24 at 20:01; Status DC Papaverine HCl 60 mg STK-MED ONCE IRRIG Last administered on 10/11/24at 09:00; Start 10/11/24 at 09:00; Stop 10/11/24 at 20:01; Status DC Heparin Sodium (Porcine) 5,000 unit STK-MED ONCE IRRIG Last administered on 10/11/24at 09:00; Start 10/11/24 at 09:00; Stop 10/11/24 at 20:01; Status DC Furosemide 20 mg ONCE ONCE IV; Start 10/12/24 at 02:30; Stop 10/12/24 at 02:31; Status DC Furosemide 20 mg STK-MED ONCE .ROUTE Last administered on 10/12/24at 02:20; Start 10/12/24 at 02:16; Stop 10/12/24 at 02:17; Status DC Albumin Human 250 ml @ As Directed STK-MED ONCE IV Last administered on 10/12/24at 21:19; Start 10/12/24 at 17:49; Stop 10/12/24 at 17:50; Status DC Amiodarone HCl 200 mg DAILY PO Last administered on 10/20/24at 09:23; Start 10/13/24 at 09:00; Stop 11/12/24 at 08:59 Insulin Human Regular INSULIN SLIDING SCAL... ACHS SQ Last administered on 10/19/24at 11:58; Start 10/13/24 at 11:30; Stop 11/12/24 at 11:29 Potassium Chloride 20 meq AD PRN PO Last administered on 10/19/24at 11:58; Start 10/14/24 at 09:00; Stop 11/13/24 at 08:59 Atorvastatin Calcium 40 mg HS PO Last administered on 10/19/24at 20:15; Start 10/14/24 at 21:00; Stop 11/10/24 at 20:59 Iron Sucrose 200 mg ONCE ONCE IV; Start 10/17/24 at 18:00; Stop 10/14/24 at 18:16; Status DC Folic Acid 1 mg DAILY PO Last administered on 10/20/24at 09:24; Start 10/15/24 at 21:00; Stop 11/14/24 at 20:59 Vitamin B Complex 1,000 mcg DAILY PO Last administered on 10/20/24at 09:23; Start 10/15/24 at 21:00; Stop 11/14/24 at 20:59 Iron Sucrose 200 mg AD IV; Start 10/14/24 at 18:30; Stop 10/14/24 at 18:34; Status DC Iron Sucrose 200 mg Q24H IV Last administered on 10/16/24at 18:32; Start 10/14/24 at 19:00; Stop 10/16/24 at 19:01; Status DC Furosemide 20 mg ONCE ONCE IV; Start 10/16/24 at 12:00; Stop 10/16/24 at 12:01; Status DC Docusate Sodium 100 mg BID PRN PO; Start 10/17/24 at 11:00; Stop 11/11/24 at 08:59 Potassium Chloride 20 meq STK-MED ONCE PO; Start 10/19/24 at 08:37; Stop 10/19/24 at 08:37; Status DC GUANACO ORELLANA MD Oct 20, 2024 11:12
--- NOTE | 2024-10-20 11:33 | NUR ---
WO Received notification from [facility] that they have obtained ins auth for admission. Bed avail when pt ready for dc. Primary nurse notified.
--- NOTE | 2024-10-20 12:24 | PN ---
[facility] PROGRESS NOTE Date of Service: Oct 20, 2024 Time of Service: 12:22 SUBJECTIVE: Ms. Mac is a 79-year-old female that was seen and examined today on 10/05/2024. Patient is a good historian and personal health. Patient states that she came to the emergency department with a chief complaint of bilateral chest wall pain closer to the axilla and pain also radiates to the back. Onset was 9:30 a.m.. Character is described as throbbing. Symptoms are aggravated with palpation and movement. Symptoms are not alleviated with a chiropractic adjustment in fact symptoms became worse after a chiropractic adjustment. There was no alleviating factors Duration of pain is on and off. Patient denies any associated shortness of breath, nausea, vomiting, headache, dizziness. Today in the emergency department CBC unremarkable, troponin 378 (high sensitivity), creatinine 1.1, glucose 208 mg/dL, GFR 51, no urinalysis has been collected or sent to lab. Emergency room initial impression and EKG is that there is new T-wave inversions signifying a change from previous EKGs one week ago at a prior emergency room visit. For this reason emergency room physician recommended patient be admitted with a diagnosis of chest pain. 10/06/24 patient was seen and examined in the ER. She reports that she was doing much better. She denies any chest pain. And she tells me that she came in because she had back pain radiating to bilateral shoulders. She does go to chiropractor to get this resolved but this time it was more persistent 10/07/2024 - patient is seen at bedside in the room ER 5. Patient denies any active chest pain, shortness of breath, nausea, vomiting. [place] [address] and is coming down with treatment, patient is planned for chemical laboratory tester. Patient feels anxious about the upcoming chemical laboratory tester procedure and question regarding the procedures, all questions were answered. Patient informed about her extremities getting cold and color change to purplish red and about her joint problems and trouble of food getting stuck in the esophagus after swallowing , immunology workup is planned to rule out limited scleroderma . Patient is hemodynamically stable with temperature 98.6, pulse 77, respiratory rate 17, blood pressure 146/77, pulse oximetry 99% on room air. Patient's labs shows WBC 10.4, hemoglobin 13.5, chemistries show sodium 141, potassium 4.3, creatinine 0.8, BUN 14. Patient is currently on metoprolol, pantoprazole, aspirin, heparin, nitroglycerin. Patient will be followed cl osely, we will follow Cardiology recommendations. 10/08/2024 - patient is seen in room 201, patient denies any symptoms, patient was taken to the chemical laboratory tester yesterday in the results are as follows SELECTIVE CORONARY ANGIOGRAPHY: 1. Left main: The left main bifurcates into the left anterior descending and circumflex coronary artery. Distal Left main with 50% stenosis 2. Left anterior descending: The left anterior descending coronary artery gives rise to diagonal(s) and terminates as the apical recurrent branch. Prox LAD with 90% disease 3. Circumflex: The circumflex coronary artery is noted to provide obtuse marginal(s). Prox Cx with 95% disease 4. Right coronary artery: The right coronary artery is dominant and gives PDA and NIKITA. Prox RCA with 50% disease 5. Left ventricular end-diastolic pressure is elevated. There was no gradient noted upon pullback. Cardiothoracic surgeon is consulted and Dr. Licona has ordered an ultrasound carotid has a preoperative procedure. patient will be continued on medical management until the surgery . Patient is currently hemodynamically stable with temperature 98.2, pulse 81, blood pressure 122/80, respiratory rate 18, saturating at 94% on room air. Patient's labs shows WBC 10.7, hemoglobin 11.9 and chemistries show sodium 142, potassium 3.7, creatinine 0.7. Awaiting further instructions from cardio thoracic surgeon. 10/17/24 Patient was seen and examined at bedside. She feels better but complains of generalized weakness. She is working with PT at the time of evaluation. Pending bleeding scan today and GI recommendations for discharge. 10/18/24 patient is seen and examined along with the RN. 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 It was 1st identified on nuclear medicine bleeding scan done to rule out GI bleed which did rule out any GI bleed which showed accumulation of tracer in the left groin which was followed by an arterial dupl ex which did showed a pseudoaneurysm cardiology was notified pressure dressing was applied. No drop in hemoglobin 10/19/24 : Patient seen and examined no new complaints hemoglobin stable 10/20/24 : Patient seen and examined, she complains of soreness of the chest and back today. REVIEW OF SYSTEMS CONSTITUTIONAL: Denies fevers, chills, or night sweats. No unintentional weight loss reported. NEUROLOGICAL: Denies headache, amaurosis fugax, motor weakness, sensory deficit, vertigo/spinning sensation, gait abnormalities, or tremors. ENT: No hearing loss, otalgia, otorrhea, rhinitis, rhinorrhea, hoarseness, or sore throat. CARDIOVASCULAR: Denies any exertional angina, dyspnea on exertion, PULMONARY: Denies any shortness of breath, cough, GASTROINTESTINAL: Denies any type of dysphagia to either liquids or solids. Denies nausea, vomiting, pyrosis, early satiety, abdominal pain, diarrhea, constipation, or changes in stool consistency or caliber. Denies coffee-ground emesis, hematemesis, hematochezia, or melanotic stools. DERMATOLOGIC: Denies rashes or pruritus. PSYCHIATRIC: Denies any suicidal or homicidal ideation. Denies hallucinations. PHYSICAL EXAM GENERAL APPEARANCE: The patient is awake, alert, and oriented, in no acute cardiopulmonary distress. NEUROLOGICAL: Cranial nerves II-XII grossly intact. Motor is 5/5 in bilateral upper and lower extremities proximal to distal. No sensory deficits. HEENT: Face is symmetric. Pupils are equal and reactive. Extraocular movements are intact. NECK: Supple. No JVD. No thyromegaly. No submental, submandibular, pre- /postauricular, occipital or supraclavicular lymphadenopathy. CHEST: Normal chest expansion. No Telemetry. LUNGS: Absence of any rales, rhonchi or any wheezing. CARDIOVASCULAR: Regular. S1 and S2 normal. No appreciable rubs, murmurs or gallops. ABDOMEN: Soft, nontender, and nondistended. There is no rebound, voluntary guarding, or rigidity. : Deferred. No Rosa. EXTREMITIES: Non-edematous and not cyanotic. No clubbing. Good capillary refill. SKIN: No skin breakdown. Vital Signs (last 8hr) Date Time Temp Pulse Resp B/P (MAP) Pulse Ox O2 Delivery O2 Flow Rate FiO2 10/20/24 09:35 97 Room Air* 0 21 10/20/24 08:08 97.5 79 18 111/57 95 Room Air 10/20/24 07:44 74 18 N/A Room Air LABS: Laboratory: Test 10/20/24 11:43 10/20/24 03:23 10/19/24 03:24 Range/Units Whole Blood Glucose 195 #H 70-110 MG/DL White Blood Count 14.2 H 4.8-10.8 K/uL Red Blood Count 3.79 L 4.00-5.50 MIL/uL Hemoglobin 11.2 L 12.0-16.0 g/dL Hematocrit 34.7 L 36-48 % Mean Corpuscular Volume 91.6 79-99 fL Mean Corpuscular Hemoglobin 29.6 27.0-33.0 pg Mean Corpuscular Hemoglobin Concent 32.3 32.0-36.0 g/dL Red Cell Distribution Width 18.3 H 11.0-15.5 % Platelet Count 382 130-400 K/uL Mean Platelet Volume 9.9 7.5-10.5 fL Immature Granulocyte % (Auto) 2.0 H 0-1 % Neutrophils (%) (Auto) 71.6 40.0-77.0 % Lymphocytes (%) (Auto) 14.9 L 21.0-51.0 % Monocytes (%) (Auto) 8.6 3.0-13.0 % Eosinophils (%) (Auto) 2.3 0.0-8.0 % Basophils (%) (Auto) 0.6 0.0-5.0 % Neutrophils # (Auto) 10.2 H 1.8-7.7 K/uL Lymphocytes # (Auto) 2.1 1.0-4.8 K/uL Monocytes # (Auto) 1.2 H 0.1-1.0 K/uL Eosinophils # (Auto) 0.32 0.00-0.70 K/uL Basophils # (Auto) 0.08 0.00-0.20 K/uL Absolute Immature Granulocyte (auto 0.29 0-1 K/uL Nucleated Red Blood Cells 0.1 0.0-0.19 % Sodium Level 132 L 136-145 mmol/L Potassium Level 4.0 3.5-5.1 mmol/L Chloride Level 99 L 101-111 mmol/L Carbon Dioxide Level 30 21-32 mmol/L Blood Urea Nitrogen 13 7-18 mg/dL Creatinine 0.7 0.5-1.0 mg/dL Glomerular Filtration Rate Calc 88 >90 mL/min Random Glucose 106 H 70-105 mg/dL Total Calcium 8.3 L 8.5-10.1 mg/dL Red Blood Cell Morphology See comments Magnesium Level 1.70 L 1.80-2.40 mg/dL Current Medications Medications (Trade) Dose Ordered Sig/Rashad Route PRN Reason Start Time Stop Time Status Last Admin Dose Admin Acetaminophen (TYLenol 325MG TAB) 650 mg Q4H PRN PO Temp >38.3C(AFTER EXTUBATION) 10/11/24 09:00 11/10/24 08:59 Acetaminophen (TYLenol 325MG TAB) 650 mg Q6H PRN PO MILD PAIN (1-3) 10/11/24 09:00 11/10/24 08:59 10/20/24 09:34 650 MG Acetaminophen (TYLenol 325MG TAB) 650 mg Q6H PRN PO TEMPERATURE GREATER THAN 101.5 10/05/24 23:30 10/14/24 09:10 DC 10/10/24 06:06 650 MG Acetaminophen (TYLenol 650MG SUPPOSITORY) 650 mg Q4H PRN RC Temp >38.3C WHILE INTUBATED 10/11/24 09:00 11/10/24 08:59 Acetaminophen (acetaMINOPHEN) 1,000 mg Q6H6 IV 10/11/24 12:00 10/12/24 11:59 DC 10/12/24 05:06 1,000 MG Albumin Human 250 ml @ 0 mls/hr AD PRN IV IF HEMODYNAMICALLY UNSTABLE 10/11/24 09:00 10/11/24 23:20 DC 10/11/24 23:20 250 MLS/HR Aminocaproic Acid 49783 mg/Sodium Chloride 310 ml @ 25 mls/hr AD IV 10/11/24 09:00 10/11/24 08:54 DC Aminocaproic Acid 34875 mg/Sodium Chloride 480 ml @ 0 mls/hr AD PRN IV BLEEDING CONTROL 10/11/24 07:00 11/10/24 06:59 Amiodarone HCl (pacERONE 200MG) 200 mg DAILY PO 10/13/24 09:00 11/12/24 08:59 10/20/24 09:23 200 MG Amiodarone HCl 150 mg/Dextrose 103 ml @ 618 mls/hr ONCE IV 10/11/24 12:00 10/11/24 12:09 DC 10/11/24 11:57 618 MLS/HR Amiodarone HCl 360 mg/Dextrose 207.2 ml @ 33.3 mls/hr AD IV 10/11/24 12:00 10/12/24 19:18 DC 10/11/24 12:04 33.3 MLS/HR Amiodarone HCl 540 mg/Dextrose 310.8 ml @ 16.7 mls/hr [id number] IV 10/11/24 12:00 11/10/24 11:59 Hold 10/11/24 18:20 16.7 MLS/HR Aspirin (Aspirin 81mg Chew Tab) 81 mg DAILY PO 10/06/24 09:00 11/05/24 08:59 10/20/24 09:22 81 MG Atorvastatin Calcium (LIPItor 20MG) 20 mg HS PO 10/08/24 21:00 10/11/24 08:37 DC 10/10/24 20:55 20 MG Atorvastatin Calcium (LIPItor 20MG) 40 mg HS PO 10/11/24 21:00 10/14/24 09:11 DC 10/13/24 20:32 40 MG Atorvastatin Calcium (LIPItor 40MG) 40 mg HS PO 10/14/24 21:00 11/10/24 20:59 10/19/24 20:15 40 MG Calcium Gluconate 1 gm/Sodium Chloride 60 ml @ 200 mls/hr AD PRN IV HYPOCALCEMIA 10/11/24 09:00 11/10/24 08:59 10/13/24 17:20 200 MLS/HR Cefazolin Sodium (Ancef) 2 gm ONCALL PRN IVP SURGERY 10/10/24 12:00 10/12/24 11:59 DC Cefazolin Sodium (Ancef) 2 gm Q8H IVPB 10/11/24 14:00 10/12/24 06:01 DC 10/12/24 06:21 2 GM Clopidogrel Bisulfate (plaVIX 75MG) 75 mg DAILY PO 10/12/24 09:00 11/11/24 08:59 10/20/24 09:23 75 MG Cyclobenzaprine HCl (Cyclobenzaprine HCl) 5 mg TID PRN PO MUSCLE SPASMS 10/10/24 14:30 10/11/24 08:37 DC Dexmedetomidine/ Sodium Chloride (PRECEdex 400MCG/ 100ML-NS) 400 mcg PROTOCOL IV 10/11/24 09:00 10/12/24 08:59 DC Dextrose (D50w) 50 ml AD PRN IV HYPOGLYCEMIA PROTOCOL 10/11/24 09:00 10/13/24 07:52 DC Dextrose (D50w) 50 ml AD PRN IV HYPOGLYCEMIA PROTOCOL 10/11/24 15:00 11/10/24 14:59 Docusate Sodium (COLace 100MG CAP) 100 mg BID PO 10/12/24 09:00 10/17/24 10:46 DC 10/16/24 09:01 100 MG Docusate Sodium (COLace 100MG CAP) 100 mg BID PRN PO CONSTIPATION 10/17/24 11:00 11/11/24 08:59 Enoxaparin Sodium (Lovenox) 30 mg DAILY SQ 10/14/24 09:00 10/11/24 14:00 DC Epinephrine HCl 10 mg/Sodium Chloride 250 ml @ 7.716 mls/ hr AD PRN IV POST-OP CARDIOVASCULAR ORDERS 10/11/24 09:00 10/16/24 08:59 DC Epinephrine HCl 10 mg/Sodium Chloride 250 ml @ 0 mls/hr AD PRN IV TITRATE 10/11/24 07:00 10/11/24 09:01 DC Famotidine (Pepcid 20mg Vial) 20 mg BID IV 10/11/24 09:00 10/11/24 09:03 DC Famotidine (Pepcid 20mg Vial) 20 mg Q24H IV 10/11/24 09:30 11/10/24 08:59 10/20/24 09:25 20 MG Folic Acid (FOLic ACID 1 MG TABLET) 1 mg DAILY PO 10/15/24 21:00 11/14/24 20:59 10/20/24 09:24 1 MG Furosemide (LASix 20MG TAB) 20 mg Q12H PO 10/13/24 09:00 11/12/24 08:59 10/20/24 09:22 20 MG Furosemide (LASix 20MG VIAL) 20 mg Q12H IV 10/12/24 09:00 10/13/24 08:59 DC 10/12/24 21:18 20 MG Glucagon (Glucagon 1mg Kit) 1 mg AD PRN IM HYPOGLYCEMIA PROTOCOL 10/11/24 09:00 10/13/24 07:52 DC Glucagon (Glucagon 1mg Kit) 1 mg AD PRN IM HYPOGLYCEMIA PROTOCOL 10/11/24 15:00 11/10/24 14:59 Heparin Sodium (Porcine) (HEParin 5,000 UNIT VIAL) *calculation based on ACTUAL B... AD PRN IV HEPARIN PROTOCOL 10/06/24 07:30 10/10/24 08:27 DC 10/06/24 07:19 3,877.5 UNIT Heparin Sodium (Porcine) (HEParin 5,000 UNIT VIAL) 5,000 unit BID SQ 10/06/24 09:00 10/06/24 06:29 DC Heparin Sodium/ Dextrose 250 ml @ 0 mls/hr PROTOCOL IV 10/11/24 16:00 10/11/24 15:24 DC Heparin Sodium/ Dextrose 250 ml @ 0 mls/hr PROTOCOL IV 10/11/24 16:00 10/12/24 19:18 DC 10/11/24 16:14 8.7 MLS/HR Heparin Sodium/ Dextrose 250 ml @ 0 mls/hr Q6H IV 10/10/24 09:00 10/10/24 08:26 DC Heparin Sodium/ Dextrose 250 ml @ 0 mls/hr Q6H IV 10/06/24 07:30 10/10/24 08:17 DC 10/08/24 14:20 0 MLS/HR Insulin Human Regular (humuLIN R 100 UNIT/ML 3ML) INSULIN SLIDING SCAL... ACHS SQ 10/13/24 11:30 11/12/24 11:29 10/20/24 12:15 2 UNIT Insulin Human Regular (humuLIN R 100 UNIT/ML 3ML) INSULIN SLIDING SCAL... ACHS SQ 10/06/24 07:30 10/11/24 08:37 DC Insulin Human Regular 100 unit/ Sodium Chloride 100 ml @ 0 mls/hr AD IV 10/11/24 09:00 10/13/24 08:59 DC 10/11/24 23:19 3 MLS/HR Iron Sucrose (VenoFER) 200 mg AD IV 10/14/24 18:30 10/14/24 18:34 DC Iron Sucrose (VenoFER) 200 mg Q24H IV 10/14/24 19:00 10/16/24 19:01 DC 10/16/24 18:32 200 MG Lactulose (Constulose 20gm/ 30ml Udcup) 20 gm BID PRN PO CONSTIPATION 10/11/24 09:00 11/10/24 08:59 Levothyroxine Sodium (SYNTHroid 100MCG TAB) 100 mcg SYN PO 10/09/24 06:30 11/08/24 06:29 10/20/24 06:05 100 MCG Lidocaine HCl/ Dextrose 250 ml @ 0 mls/hr AD PRN IV TITRATE 10/11/24 11:00 10/12/24 19:18 DC 10/12/24 14:44 7.5 MLS/HR Magnesium Hydroxide (Milk Of Magnesium 30ml) 30 ml DAILY PRN PO CONSTIPATION 10/11/24 09:00 11/10/24 08:59 Magnesium Sulfate 50 ml @ 12.5 mls/hr AD PRN IV MAG LEVEL LESS THAN 2.0 10/11/24 09:00 11/10/24 08:59 10/19/24 08:41 12.5 MLS/HR Magnesium Sulfate 50 ml @ 0 mls/hr PROTOCOL PRN IV h 10/05/24 23:30 10/11/24 08:37 DC Metoprolol Tartrate (loprESSOR) 12.5 mg BID PO 10/07/24 09:00 10/11/24 08:37 DC 10/11/24 06:32 12.5 MG Metoprolol Tartrate (loprESSOR) 12.5 mg BID PO 10/13/24 09:00 11/12/24 08:59 10/20/24 09:22 12.5 MG Morphine Sulfate (morPHINE 2MG SYG) 0.5 mg Q2H PRN IV MODERATE PAIN (4-6) 10/11/24 09:00 10/12/24 08:59 DC Morphine Sulfate (morPHINE 2MG SYG) 1 mg Q2H PRN IV SEVERE PAIN (7-10) 10/11/24 09:00 10/16/24 11:59 DC Nitroglycerin (Nitroglycerin 1gm Oint) 0.5 inch Q8H TD 10/05/24 23:30 10/11/24 08:37 DC 10/10/24 22:37 0.5 INCH Nitroglycerin (Nitrostat) 0.4 mg AD PRN SL CHEST PAIN 10/05/24 22:30 10/11/24 08:37 DC Nitroglycerin/ Dextrose 0 ml @ 0 mls/hr AD IV 10/11/24 09:00 10/14/24 08:59 DC 10/11/24 12:00 0 MLS/HR Norepinephrine Bitartrate 250 ml @ 0 mls/hr AD PRN IV TITRATE 10/11/24 07:00 10/11/24 09:03 DC Norepinephrine Bitartrate 250 ml @ 0 mls/hr AD PRN IV POST-OP CARDIOVASCULAR ORDERS 10/11/24 09:00 11/10/24 08:59 10/12/24 08:08 11.3 MLS/HR Ondansetron HCl (zoFRAN 4MG INJ) 4 mg Q6H PRN IV NAUSEA/VOMITING 10/11/24 09:00 11/10/24 08:59 10/13/24 08:20 4 MG Ondansetron HCl (zoFRAN 4MG INJ) 4 mg Q6H PRN IV NAUSEA/VOMITING 10/05/24 23:30 10/11/24 08:37 DC Pantoprazole Sodium (PROTonix 40MG TAB) 40 mg DAILY PO 10/06/24 09:00 10/11/24 08:37 DC 10/10/24 09:00 40 MG Pharmacy Profile Note (Pharmacy Communication) 1 each ONCE MISC 10/07/24 17:30 10/08/24 07:12 DC 10/07/24 23:37 1 EACH Potassium Phosphate 250 ml @ 42 mls/hr AD PRN IV LOW PHOS LEVEL 10/11/24 09:00 11/10/24 08:59 Potassium Chloride 100 ml @ 100 mls/hr AD PRN IV HYPOKALEMIA 10/11/24 09:00 11/10/24 08:59 10/16/24 09:02 100 MLS/HR Potassium Chloride 100 ml @ 100 mls/hr AD PRN IV POTASSIUM PROTOCOL 10/05/24 23:30 10/11/24 08:37 DC Potassium Chloride (K-Dur/Klor-Con 20meq) 20 meq AD PRN PO POTASSIUM PROTOCOL 10/05/24 23:30 10/11/24 08:37 DC Potassium Chloride (KCl 10% Elixir 20meq/15ml) 20 meq AD PRN PO POTASSIUM PROTOCOL 10/14/24 09:00 11/13/24 08:59 10/19/24 11:58 20 MEQ Potassium Chloride (KCl 10% Elixir 20meq/15ml) 20 meq AD PRN PO POTASSIUM PROTOCOL 10/05/24 23:30 10/11/24 08:37 DC 10/09/24 21:00 20 MEQ Propofol 100 ml @ 0 mls/hr AD PRN IV SEDATION 10/11/24 09:00 10/15/24 08:59 DC Sodium Bicarbonate (Sodium Bicarb 50meq 50ml Vial) 50 meq AD PRN IV OTHER[SEE DOSING INSTRUCTIONS] 10/11/24 09:00 10/14/24 08:59 DC 10/11/24 18:14 50 MEQ Sodium Chloride 500 ml @ 0 mls/hr AD IV 10/11/24 09:00 11/10/24 08:59 Sodium Chloride 500 ml @ 0 mls/hr Q0M IV 10/06/24 21:30 10/11/24 08:37 DC Sodium Chloride 1,000 ml @ 10 mls/hr ONCE IV 10/11/24 09:00 10/11/24 08:52 DC Sodium Chloride (NS Flush 10ml) 10 ml Q8H IVP 10/07/24 17:30 11/06/24 17:29 10/20/24 09:23 10 ML Sodium Chloride (NS Flush 10ml) 10 ml Q8H PRN IVP IV LINE FLUSH 10/11/24 09:00 11/10/24 08:59 Tramadol HCl (UltRAM) 25 mg Q6H PRN PO MODERATE PAIN (4-6) 10/10/24 14:30 10/11/24 08:37 DC 10/10/24 16:13 25 MG Tramadol HCl (UltRAM) 25 mg Q6H PRN PO MODERATE PAIN (4-6) 10/11/24 09:00 10/16/24 08:59 DC Tramadol HCl (UltRAM) 50 mg Q6H PRN PO SEVERE PAIN (7-10) 10/11/24 09:00 10/16/24 08:59 DC 10/14/24 08:29 50 MG Vasopressin 40 units/Sodium Chloride 40 ml @ 0 mls/hr PROTOCOL IV 10/11/24 11:00 11/10/24 10:59 Vitamin B Complex (Vitamin B-12) 1,000 mcg DAILY PO 10/15/24 21:00 11/14/24 20:59 2/23/25 09:23 1,000 MCG DIAGNOSTICS / RADIOLOGY: [ ] ASSESSMENT: Chest pain due to NSTEMI, POA NSTEMI, POA Elevated troponin, POA CKD stage IIIA, POA uncontrolled Diabetes mellitius type2, POA Hypertension POA Hypothyroidism POA Raynaud's phenomenon POA GI bleed resolved 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 PLAN: Downgraded from icu to pccu Bleeding scan revealed no GI bleed but did show left groin crease her leak which led to arterial duplex of left groin and showed pseudoaneurysm cardiology Pseudoaneurysm has resolved , hemoglobin is not dropping. Endoscopy was cancelled as there was no signs of bleeding in the GI tract. Transfuse RBC if Hb<7 Incentive spirometry Avoid nephrotoxic agents when possible Renally dose all medications when possible Monitor intake and output Weight patient daily Monitor patient's labs Glucometer checks a.c. and HS Humulin R sliding scale Follow Cardiothoracic recommendations and Cardiology recommendations Maintain electrolyte balance OSIRIS ANDERSON MD Oct 20, 2024 12:24
--- NOTE | 2024-10-20 14:30 | HMCIMG ---
CHEST 1VW HISTORY: Chest pain COMPARISON: 10/18/2024 FINDINGS: A frontal projection of the chest was obtained. No acute pulmonary infiltrates is seen. Poststernotomy changes are seen. The heart is enlarged. Degenerative changes of the thoracolumbar spine are present. Prominent interstitial markings are seen. No evidence of aortic calcification is seen. IMPRESSION: 1. No acute pulmonary infiltrate is seen.
[2024-10-20 18:49] LABS: APPEARANCE,URINE CLOUDY (CLEAR); BILIRUBIN,URINE NEGATIVE (NEGATIVE); COLOR,URINE YELLOW (YELLOW); GLUCOSE, URINE (UA) NEGATIVE (NEGATIVE); KETONES,URINE NEGATIVE (NEGATIVE); LEUKOCYTE ESTERASE ,URINE 250 Leu/uL (NEGATIVE); NITRATE,URINE NEGATIVE (NEGATIVE); OCCULT BLOOD,URINE NEGATIVE (NEGATIVE); PROTEIN,URINE NEGATIVE (NEGATIVE); UROBILINOGEN,URINE 6 mg/dL (0.2-1.0)
[2024-10-20 18:52] LABS: BACTERIA,URINE FEW /HPF (None Seen); MUCUS,URINE RARE LPF (None Seen); OTHER CASTS, URINE 2 /LPF (None Seen); RBC,URINE 0-1 /HPF (0-1); SQUAMOUS EPITHELIAL CELL,UR FEW /HPF (0-2); WBC,URINE 26-50 /HPF (0-1)
--- NOTE | 2024-10-20 20:50 | PN ---
"[facility] PROGRESS NOTE Date Patient Seen: Oct 20, 2024 Time of Visit: 20:43 Supervising Physician: GARY GORDON MD Primary Care Physician: Maine Euceda MD Outpatient Specialists: Inpatient Consults: CV Surgery Dr Licona, Dr Ravi MD, BIS Attending physician|: Kali Carroll MD PROBLEM LIST: Status post CABG x [address] elevation myocardial infarction on admission Dilated cardiomyopathy Acute systolic heart failure exacerbation, EF 35% Atrial fibrillation with RVR Hypertension Type 2 diabetes mellitus Hypothyroidism Chronic kidney disease stage III-A secondary to diabetes mellitus Raynaud's phenomenon GERD GI bleed INTERVAL HISTORY: Patient is currently on room air she is up to chair, no pain, no fevers, no nausea good appetite no constipation up and ambulatory no fevers denies palpitations REVIEW OF SYSTEMS: 12 point ROS reviewed with patient. Pertinent positives mentioned above. Otherwise negative. PHYSICAL EXAM: GENERAL: Post CABG , recovering HEENT: Sclera non icteric, moist mucosa NECK: Supple, no JVD, trachea midline Rt IJ LUNGS: Clear breath sounds to all lobes bilaterally. No wheezes HEART: Regular rate and rhythm. Normal S1 and S2, without murmurs , incision open to air. healing well ABD: Abdomen soft, nontender. Bowel sounds present EXT: No clubbing cyanosis +1 pitting edema to BLE. pulses palpable. cap refill < 3 seconds to carlos feet. NEURO: GCS 15 no focal weakness. Vital Signs (last 8hr) Date Time Temp Pulse Resp B/P (MAP) Pulse Ox O2 Delivery O2 Flow Rate FiO2 10/20/24 18:31 97.5 73 16 121/57 98 Room Air 10/20/24 16:31 97.9 76 16 115/56 97 Room Air 10/20/24 12:50 97.9 73 18 112/65 98 Room Air LABS: Hematology Labs: Test 10/20/24 03:23 10/19/24 03:24 Range/Units White Blood Count 14.2 H 4.8-10.8 K/uL Red Blood Count 3.79 L 4.00-5.50 MIL/uL Hemoglobin 11.2 L 12.0-16.0 g/dL Hematocrit 34.7 L 36-48 % Mean Corpuscular Volume 91.6 79-99 fL Mean Corpuscular Hemoglobin 29.6 27.0-33.0 pg Mean Corpuscular Hemoglobin Concent 32.3 32.0-36.0 g/dL Red Cell Distribution Width 18.3 H 11.0-15.5 % Platelet Count 382 130-400 K/uL Mean Platelet Volume 9.9 7.5-10.5 fL Immature Granulocyte % (Auto) 2.0 H 0-1 % Neutrophils (%) (Auto) 71.6 40.0-77.0 % Lymphocytes (%) (Auto) 14.9 L 21.0-51.0 % Monocytes (%) (Auto) 8.6 3.0-13.0 % Eosinophils (%) (Auto) 2.3 0.0-8.0 % Basophils (%) (Auto) 0.6 0.0-5.0 % Neutrophils # (Auto) 10.2 H 1.8-7.7 K/uL Lymphocytes # (Auto) 2.1 1.0-4.8 K/uL Monocytes # (Auto) 1.2 H 0.1-1.0 K/uL Eosinophils # (Auto) 0.32 0.00-0.70 K/uL Basophils # (Auto) 0.08 0.00-0.20 K/uL Absolute Immature Granulocyte (auto 0.29 0-1 K/uL Nucleated Red Blood Cells 0.1 0.0-0.19 % Red Blood Cell Morphology See comments Chemistry Labs: Test 10/20/24 20:05 10/20/24 03:23 10/19/24 03:24 Range/Units Whole Blood Glucose 147 #H 70-110 MG/DL Sodium Level 132 L 136-145 mmol/L Potassium Level 4.0 3.5-5.1 mmol/L Chloride Level 99 L 101-111 mmol/L Carbon Dioxide Level 30 21-32 mmol/L Blood Urea Nitrogen 13 7-18 mg/dL Creatinine 0.7 0.5-1.0 mg/dL Glomerular Filtration Rate Calc 88 >90 mL/min Random Glucose 106 H 70-105 mg/dL Total Calcium 8.3 L 8.5-10.1 mg/dL Magnesium Level 1.70 L 1.80-2.40 mg/dL DIAGNOSTICS / RADIOLOGY RESULTS: [ ] PLAN continue incentive spirometry PT and OT daily NEURO: Minimize central acting medications as possible. Maintain fall precautions, adequate lighting during the day PULMONARY: Supplemental 02 as needed. Maintain aspiration precautions at all times CARDIOVASCULAR: Follow hemodynamics. Vital signs per facility protocol GI & NUTRITION: Continue with nutritional support. Continue stool softeners and laxatives as needed. KIDNEYS & ELECTROLYTES: Strict monitoring of intake, output and overall fluid balance. Avoid nephrotoxic medications to the extent possible. Medications to be dosed according to renal function. Monitor electrolytes and replace as needed ENDOCRINE: Maintain blood glucose between 100-180 at all times. Hypoglycemia protocol in place INFECTIOUS DISEASE: Trend temperature, WBC and procalcitonin level Follow cultures, deescalate antibiotics as soon as possible. Panculture if new onset fever ONCOLOGY/HEMATOLOGY/COAGULATION: Monitor for s/s of bleeding Monitor hemoglobin, coagulation studies as needed SKIN: Pressure ulcer prevention per facility protocol Specialty mattress ORTHO/REHAB: Continue PT/OT Prophylaxis: Continue GI and DVT prophylaxis Code Status: Full Resuscitation Disposition: As per primary Progress Note scribed by Rashel Villanueva on my behalf and I can attest to the accuracy of the note I personally scribed for GARY GORDON MD ([email or web address]) on 10/20/24 at 20:50. Electronically submitted by Rashel Villanueva ([email or web address]). GARY GORDON MD Oct 20, 2024 20:50"
[2024-10-21 00:23] VITALS: BP 135/69; PULSE 71; RESP 18; TEMP 98.1
--- NOTE | 2024-10-21 00:43 | PN ---
TIME: 6:00 p.m. SUBJECTIVE: The patient is a 79-year-old female status post coronary artery bypass grafting. No major events overnight, recovering well so far. PHYSICAL EXAMINATION: NEUROLOGIC: Alert and oriented, no deficits. CARDIAC: S1, S2. Regular rate and rhythm. RESPIRATORY: Clear to auscultation bilaterally. SKIN: Incision is clean, dry and intact. ASSESSMENT AND PLAN: * Coronary artery disease, status post coronary artery bypass grafting. On aspirin, statin, and beta-estefania. * Volume overload, on Lasix IV b.i.d. * Acute blood loss anemia, status post surgery. No evidence of active bleeding at this time. We will continue to monitor and transfuse for hemoglobin less than 7. * Deep venous thrombosis prophylaxis. The patient will be on Lovenox daily. TID: [id number] RECEIPT: [id number]
[2024-10-21 03:48] VITALS: BP 134/68; PULSE 78; RESP 18; TEMP 97.9
[2024-10-21 03:58] LABS: BASOPHILS # (AUTO) 0.11 K/uL (0.00-0.20); BASOPHILS % (AUTO) 0.8 % (0.0-5.0); EOSINOPHILS # (AUTO) 0.34 K/uL (0.00-0.70); EOSINOPHILS % (AUTO) 2.4 % (0.0-8.0); HEMATOCRIT 35.5 % (36-48); IMMATURE GRANULOCYTE ABSOLUTE 0.24 K/uL (0-1); LYMPHOCYTES % (AUTO) 13.9 % (21.0-51.0); MEAN CORPUSCULAR HEMOGLOBIN 29.2 pg (27.0-33.0); MEAN CORPUSCULAR HGB CONC 32.1 g/dL (32.0-36.0); MONOCYTES # (AUTO) 1.1 K/uL (0.1-1.0); MONOCYTES % (AUTO) 7.9 % (3.0-13.0); NEUTROPHILS # (AUTO) 10.5 K/uL (1.8-7.7); NEUTROPHILS % (AUTO) 73.3 % (40.0-77.0); PLATELET COUNT (AUTO) 441 K/uL (130-400); RED CELL DISTRIBUTION WIDTH 18.1 % (11.0-15.5); WHITE BLOOD COUNT (AUTO) 14.3 K/uL (4.8-10.8)
[2024-10-21 04:07] LABS: CREATININE 0.8 mg/dL (0.5-1.0)
[2024-10-21 07:20] VITALS: BP 113/53; PULSE 71; RESP 17; TEMP 97.7
[2024-10-21 08:15] VITALS: O2SAT 100
[2024-10-21] MEDS ORDERED: METO25 PO (08:42)
[2024-10-21] MEDS ORDERED: CLOP-31 PO (08:42)
[2024-10-21] MEDS ORDERED: CYAN-52 PO (08:42)
[2024-10-21] MEDS ORDERED: AMIO200T44 PO (08:42)
[2024-10-21] MEDS ORDERED: ATOR40TA69 PO (08:42)
[2024-10-21] MEDS ORDERED: ASPI-1005 PO (08:42)
[2024-10-21] MEDS ORDERED: FURO20TA6 PO (08:42)
[2024-10-21] MEDS ORDERED: LOSA-417 PO (08:42)
[2024-10-21] MEDS: LoSARTan 25 MG TABLET PO SCH (09:00)
--- NOTE | 2024-10-21 09:26 | PN ---
GASTROENTEROLOGY PROGRESS NOTE Date of Visit: Oct 21, 2024 Time of Visit: 09:25 Events / Notes: No acute events overnight. NM GI bleeding scan without GI bleed. Hgb improved. No overt GI bleeding. Denies fever, chills, abdominal pain, N/V, hematemesis, bloating, constipation, diarrhea, melena or hematochezia. Review of Systems: CONSTITUTIONAL: No malaise or change in sensation of wellbeing. ENMT: No rhinorrhea, otorrhea, sinus pain, ear ache. CARDIOVASCULAR: No angina, palpitations, orthopnea or paroxysmal dyspnea. RESPIRATORY: No SOB. GASTROINTESTINAL: No abdominal pain, nausea, vomiting, diarrhea, hematemesis, melena or change in the patient's habitual bowel movements consistency/number. GENITOURINARY: No dysuria, hematuria or change in bladder continence. MUSCULOSKELETAL: No new muscle pain or decrease in muscular strength. No new joint swelling, redness or tenderness. SKIN: No new rash. Physical Exam: GEN: Awake, alert, oriented in person, time and place, and in no acute distress. HEENT: No sinus tenderness. Tympanic membranes were not examined. No rhinorrhea. Oral pharyngeal mucosa is pink, moist and within normal limits. Neck is supple with no cervical lymphadenopathy, thyromegaly or JVD. CHEST: Inspection, palpation and percussion of the chest were unremarkable. Lung auscultation revealed normal breath sounds bilaterally. CARDIAC: PMI is within normal limits. Heart sounds are regular. Normal S1, S2. No gallop or murmur. ABD: Soft, non-tender and not distended. No peritoneal signs on palpation. No organomegaly. Normal bowel sounds. EXT: No cyanosis or clubbing. No edema. SKIN: Intact. No rashes. JOINTS: No evidence of synovitis or acute arthritis. NEURO: Alert and oriented to name, place and person. Cranial nerve examination is unremarkable. No focal motor deficits. Normal speech. Gait is normal. Strength is normal. Vital Signs (last 8hr) Date Time Temp Pulse Resp B/P (MAP) Pulse Ox O2 Delivery O2 Flow Rate FiO2 10/21/24 07:20 97.7 71 17 113/53 100 Room Air 0.0 10/21/24 03:48 97.9 78 18 134/68 97 Room Air Laboratory: [ ] Laboratory: Test 10/21/24 03:30 10/20/24 20:05 10/20/24 18:40 Range/Units White Blood Count 14.3 H 4.8-10.8 K/uL Red Blood Count 3.90 L 4.00-5.50 MIL/uL Hemoglobin 11.4 L 12.0-16.0 g/dL Hematocrit 35.5 L 36-48 % Mean Corpuscular Volume 91.0 79-99 fL Mean Corpuscular Hemoglobin 29.2 27.0-33.0 pg Mean Corpuscular Hemoglobin Concent 32.1 32.0-36.0 g/dL Red Cell Distribution Width 18.1 H 11.0-15.5 % Platelet Count 441 H 130-400 K/uL Mean Platelet Volume 9.7 7.5-10.5 fL Immature Granulocyte % (Auto) 1.7 H 0-1 % Neutrophils (%) (Auto) 73.3 40.0-77.0 % Lymphocytes (%) (Auto) 13.9 L 21.0-51.0 % Monocytes (%) (Auto) 7.9 3.0-13.0 % Eosinophils (%) (Auto) 2.4 0.0-8.0 % Basophils (%) (Auto) 0.8 0.0-5.0 % Neutrophils # (Auto) 10.5 H 1.8-7.7 K/uL Lymphocytes # (Auto) 2.0 1.0-4.8 K/uL Monocytes # (Auto) 1.1 H 0.1-1.0 K/uL Eosinophils # (Auto) 0.34 0.00-0.70 K/uL Basophils # (Auto) 0.11 0.00-0.20 K/uL Absolute Immature Granulocyte (auto 0.24 0-1 K/uL Nucleated Red Blood Cells 0.0 0.0-0.19 % Sodium Level 137 136-145 mmol/L Potassium Level 4.0 3.5-5.1 mmol/L Chloride Level 100 L 101-111 mmol/L Carbon Dioxide Level 31 21-32 mmol/L Blood Urea Nitrogen 19 H 7-18 mg/dL Creatinine 0.8 0.5-1.0 mg/dL Glomerular Filtration Rate Calc 75 >90 mL/min Random Glucose 112 H 70-105 mg/dL Total Calcium 8.2 L 8.5-10.1 mg/dL Procalcitonin < 0.05 L 0.05-0.5 ng/mL Whole Blood Glucose 147 #H 70-110 MG/DL Urine Color YELLOW YELLOW Urine Appearance CLOUDY H CLEAR Urine pH 6.0 5.0-8.0 Urine Specific [place] 1.016 1.001-1.031 Urine Protein NEGATIVE NEGATIVE mg/dL Urine Glucose (UA) NEGATIVE NEGATIVE mg/dL Urine Ketones NEGATIVE NEGATIVE mg/dL Urine Occult Blood NEGATIVE NEGATIVE Urine Nitrate NEGATIVE NEGATIVE Urine Bilirubin NEGATIVE NEGATIVE mg/dL Urine Urobilinogen 6 H 0.2-1.0 mg/dL Urine Leukocyte Esterase 250 H NEGATIVE Jacy/uL Urine RBC 0-1 0-1 /HPF Urine WBC 26-50 H 0-1 /HPF Urine Squamous Epithelial Cells FEW 0-2 /HPF Urine Bacteria FEW None Seen /HPF Urine Hyaline Casts 2-5 H 0-1 /LPF /LPF Urine Other Casts 2 None Seen /LPF Current Medications Medications (Trade) Dose Ordered Sig/Rashad Route PRN Reason Start Time Stop Time Status Last Admin Dose Admin Acetaminophen (TYLenol 325MG TAB) 650 mg Q4H PRN PO Temp >38.3C(AFTER EXTUBATION) 10/11/24 09:00 11/10/24 08:59 Acetaminophen (TYLenol 325MG TAB) 650 mg Q6H PRN PO MILD PAIN (1-3) 10/11/24 09:00 11/10/24 08:59 10/20/24 09:34 650 MG Acetaminophen (TYLenol 325MG TAB) 650 mg Q6H PRN PO TEMPERATURE GREATER THAN 101.5 10/05/24 23:30 10/14/24 09:10 DC 10/10/24 06:06 650 MG Acetaminophen (TYLenol 650MG SUPPOSITORY) 650 mg Q4H PRN RC Temp >38.3C WHILE INTUBATED 10/11/24 09:00 11/10/24 08:59 Acetaminophen (acetaMINOPHEN) 1,000 mg Q6H6 IV 10/11/24 12:00 10/12/24 11:59 DC 10/12/24 05:06 1,000 MG Albumin Human 250 ml @ 0 mls/hr AD PRN IV IF HEMODYNAMICALLY UNSTABLE 10/11/24 09:00 10/11/24 23:20 DC 10/11/24 23:20 250 MLS/HR Aminocaproic Acid 33814 mg/Sodium Chloride 310 ml @ 25 mls/hr AD IV 10/11/24 09:00 10/11/24 08:54 DC Aminocaproic Acid 25308 mg/Sodium Chloride 480 ml @ 0 mls/hr AD PRN IV BLEEDING CONTROL 10/11/24 07:00 11/10/24 06:59 Amiodarone HCl (pacERONE 200MG) 200 mg DAILY PO 10/13/24 09:00 11/12/24 08:59 10/21/24 08:09 200 MG Amiodarone HCl 150 mg/Dextrose 103 ml @ 618 mls/hr ONCE IV 10/11/24 12:00 10/11/24 12:09 DC 10/11/24 11:57 618 MLS/HR Amiodarone HCl 360 mg/Dextrose 207.2 ml @ 33.3 mls/hr AD IV 10/11/24 12:00 10/12/24 19:18 DC 10/11/24 12:04 33.3 MLS/HR Amiodarone HCl 540 mg/Dextrose 310.8 ml @ 16.7 mls/hr [id number] IV 10/11/24 12:00 10/20/24 14:17 DC 10/11/24 18:20 16.7 MLS/HR Aspirin (Aspirin 81mg Chew Tab) 81 mg DAILY PO 10/06/24 09:00 11/05/24 08:59 10/21/24 08:09 81 MG Atorvastatin Calcium (LIPItor 20MG) 20 mg HS PO 10/08/24 21:00 10/11/24 08:37 DC 10/10/24 20:55 20 MG Atorvastatin Calcium (LIPItor 20MG) 40 mg HS PO 10/11/24 21:00 10/14/24 09:11 DC 10/13/24 20:32 40 MG Atorvastatin Calcium (LIPItor 40MG) 40 mg HS PO 10/14/24 21:00 11/10/24 20:59 10/20/24 20:43 40 MG Calcium Gluconate 1 gm/Sodium Chloride 60 ml @ 200 mls/hr AD PRN IV HYPOCALCEMIA 10/11/24 09:00 11/10/24 08:59 10/13/24 17:20 200 MLS/HR Cefazolin Sodium (Ancef) 2 gm ONCALL PRN IVP SURGERY 10/10/24 12:00 10/12/24 11:59 DC Cefazolin Sodium (Ancef) 2 gm Q8H IVPB 10/11/24 14:00 10/12/24 06:01 DC 10/12/24 06:21 2 GM Clopidogrel Bisulfate (plaVIX 75MG) 75 mg DAILY PO 10/12/24 09:00 11/11/24 08:59 10/21/24 08:09 75 MG Cyclobenzaprine HCl (Cyclobenzaprine HCl) 5 mg TID PRN PO MUSCLE SPASMS 10/10/24 14:30 10/11/24 08:37 DC Dexmedetomidine/ Sodium Chloride (PRECEdex 400MCG/ 100ML-NS) 400 mcg PROTOCOL IV 10/11/24 09:00 10/12/24 08:59 DC Dextrose (D50w) 50 ml AD PRN IV HYPOGLYCEMIA PROTOCOL 10/11/24 09:00 10/13/24 07:52 DC Dextrose (D50w) 50 ml AD PRN IV HYPOGLYCEMIA PROTOCOL 10/11/24 15:00 11/10/24 14:59 Docusate Sodium (COLace 100MG CAP) 100 mg BID PO 10/12/24 09:00 10/17/24 10:46 DC 10/16/24 09:01 100 MG Docusate Sodium (COLace 100MG CAP) 100 mg BID PRN PO CONSTIPATION 10/17/24 11:00 11/11/24 08:59 Enoxaparin Sodium (Lovenox) 30 mg DAILY SQ 10/14/24 09:00 10/11/24 14:00 DC Epinephrine HCl 10 mg/Sodium Chloride 250 ml @ 7.716 mls/ hr AD PRN IV POST-OP CARDIOVASCULAR ORDERS 10/11/24 09:00 10/16/24 08:59 DC Epinephrine HCl 10 mg/Sodium Chloride 250 ml @ 0 mls/hr AD PRN IV TITRATE 10/11/24 07:00 10/11/24 09:01 DC Famotidine (Pepcid 20mg Vial) 20 mg BID IV 10/11/24 09:00 10/11/24 09:03 DC Famotidine (Pepcid 20mg Vial) 20 mg Q24H IV 10/11/24 09:30 11/10/24 08:59 10/21/24 08:10 20 MG Folic Acid (FOLic ACID 1 MG TABLET) 1 mg DAILY PO 10/15/24 21:00 11/14/24 20:59 10/21/24 08:09 1 MG Furosemide (LASix 20MG TAB) 20 mg Q12H PO 10/13/24 09:00 11/12/24 08:59 10/21/24 08:09 20 MG Furosemide (LASix 20MG VIAL) 20 mg Q12H IV 10/12/24 09:00 10/13/24 08:59 DC 10/12/24 21:18 20 MG Glucagon (Glucagon 1mg Kit) 1 mg AD PRN IM HYPOGLYCEMIA PROTOCOL 10/11/24 09:00 10/13/24 07:52 DC Glucagon (Glucagon 1mg Kit) 1 mg AD PRN IM HYPOGLYCEMIA PROTOCOL 10/11/24 15:00 11/10/24 14:59 Heparin Sodium (Porcine) (HEParin 5,000 UNIT VIAL) *calculation based on ACTUAL B... AD PRN IV HEPARIN PROTOCOL 10/06/24 07:30 10/10/24 08:27 DC 10/06/24 07:19 3,877.5 UNIT Heparin Sodium (Porcine) (HEParin 5,000 UNIT VIAL) 5,000 unit BID SQ 10/06/24 09:00 10/06/24 06:29 DC Heparin Sodium/ Dextrose 250 ml @ 0 mls/hr PROTOCOL IV 10/11/24 16:00 10/11/24 15:24 DC Heparin Sodium/ Dextrose 250 ml @ 0 mls/hr PROTOCOL IV 10/11/24 16:00 10/12/24 19:18 DC 10/11/24 16:14 8.7 MLS/HR Heparin Sodium/ Dextrose 250 ml @ 0 mls/hr Q6H IV 10/10/24 09:00 10/10/24 08:26 DC Heparin Sodium/ Dextrose 250 ml @ 0 mls/hr Q6H IV 10/06/24 07:30 10/10/24 08:17 DC 10/08/24 14:20 0 MLS/HR Insulin Human Regular (humuLIN R 100 UNIT/ML 3ML) INSULIN SLIDING SCAL... ACHS SQ 10/13/24 11:30 11/12/24 11:29 10/20/24 12:15 2 UNIT Insulin Human Regular (humuLIN R 100 UNIT/ML 3ML) INSULIN SLIDING SCAL... ACHS SQ 10/06/24 07:30 10/11/24 08:37 DC Insulin Human Regular 100 unit/ Sodium Chloride 100 ml @ 0 mls/hr AD IV 10/11/24 09:00 10/13/24 08:59 DC 10/11/24 23:19 3 MLS/HR Iron Sucrose (VenoFER) 200 mg AD IV 10/14/24 18:30 10/14/24 18:34 DC Iron Sucrose (VenoFER) 200 mg Q24H IV 10/14/24 19:00 10/16/24 19:01 DC 10/16/24 18:32 200 MG Lactulose (Constulose 20gm/ 30ml Udcup) 20 gm BID PRN PO CONSTIPATION 10/11/24 09:00 11/10/24 08:59 Levothyroxine Sodium (SYNTHroid 100MCG TAB) 100 mcg SYN PO 10/09/24 06:30 11/08/24 06:29 10/21/24 05:58 100 MCG Lidocaine HCl/ Dextrose 250 ml @ 0 mls/hr AD PRN IV TITRATE 10/11/24 11:00 10/12/24 19:18 DC 10/12/24 14:44 7.5 MLS/HR Losartan Potassium (CozAAR 25MG TAB) 12.5 mg DAILY PO 10/21/24 09:00 11/20/24 08:59 Magnesium Hydroxide (Milk Of Magnesium 30ml) 30 ml DAILY PRN PO CONSTIPATION 10/11/24 09:00 11/10/24 08:59 Magnesium Sulfate 50 ml @ 12.5 mls/hr AD PRN IV MAG LEVEL LESS THAN 2.0 10/11/24 09:00 11/10/24 08:59 10/19/24 08:41 12.5 MLS/HR Magnesium Sulfate 50 ml @ 0 mls/hr PROTOCOL PRN IV h 10/05/24 23:30 10/11/24 08:37 DC Metoprolol Tartrate (loprESSOR) 12.5 mg BID PO 10/07/24 09:00 10/11/24 08:37 DC 10/11/24 06:32 12.5 MG Metoprolol Tartrate (loprESSOR) 12.5 mg BID PO 10/13/24 09:00 11/12/24 08:59 10/21/24 08:10 12.5 MG Morphine Sulfate (morPHINE 2MG SYG) 0.5 mg Q2H PRN IV MODERATE PAIN (4-6) 10/11/24 09:00 10/12/24 08:59 DC Morphine Sulfate (morPHINE 2MG SYG) 1 mg Q2H PRN IV SEVERE PAIN (7-10) 10/11/24 09:00 10/16/24 11:59 DC Nitroglycerin (Nitroglycerin 1gm Oint) 0.5 inch Q8H TD 10/05/24 23:30 10/11/24 08:37 DC 10/10/24 22:37 0.5 INCH Nitroglycerin (Nitrostat) 0.4 mg AD PRN SL CHEST PAIN 10/05/24 22:30 10/11/24 08:37 DC Nitroglycerin/ Dextrose 0 ml @ 0 mls/hr AD IV 10/11/24 09:00 10/14/24 08:59 DC 10/11/24 12:00 0 MLS/HR Norepinephrine Bitartrate 250 ml @ 0 mls/hr AD PRN IV TITRATE 10/11/24 07:00 10/11/24 09:03 DC Norepinephrine Bitartrate 250 ml @ 0 mls/hr AD PRN IV POST-OP CARDIOVASCULAR ORDERS 10/11/24 09:00 11/10/24 08:59 10/12/24 08:08 11.3 MLS/HR Ondansetron HCl (zoFRAN 4MG INJ) 4 mg Q6H PRN IV NAUSEA/VOMITING 10/11/24 09:00 11/10/24 08:59 10/13/24 08:20 4 MG Ondansetron HCl (zoFRAN 4MG INJ) 4 mg Q6H PRN IV NAUSEA/VOMITING 10/05/24 23:30 10/11/24 08:37 DC Pantoprazole Sodium (PROTonix 40MG TAB) 40 mg DAILY PO 10/06/24 09:00 10/11/24 08:37 DC 10/10/24 09:00 40 MG Pharmacy Profile Note (Pharmacy Communication) 1 each ONCE MISC 10/07/24 17:30 10/08/24 07:12 DC 10/07/24 23:37 1 EACH Potassium Phosphate 250 ml @ 42 mls/hr AD PRN IV LOW PHOS LEVEL 10/11/24 09:00 11/10/24 08:59 Potassium Chloride 100 ml @ 100 mls/hr AD PRN IV HYPOKALEMIA 10/11/24 09:00 11/10/24 08:59 10/16/24 09:02 100 MLS/HR Potassium Chloride 100 ml @ 100 mls/hr AD PRN IV POTASSIUM PROTOCOL 10/05/24 23:30 10/11/24 08:37 DC Potassium Chloride (K-Dur/Klor-Con 20meq) 20 meq AD PRN PO POTASSIUM PROTOCOL 10/05/24 23:30 10/11/24 08:37 DC Potassium Chloride (KCl 10% Elixir 20meq/15ml) 20 meq AD PRN PO POTASSIUM PROTOCOL 10/14/24 09:00 11/13/24 08:59 10/19/24 11:58 20 MEQ Potassium Chloride (KCl 10% Elixir 20meq/15ml) 20 meq AD PRN PO POTASSIUM PROTOCOL 10/05/24 23:30 10/11/24 08:37 DC 10/09/24 21:00 20 MEQ Propofol 100 ml @ 0 mls/hr AD PRN IV SEDATION 10/11/24 09:00 10/15/24 08:59 DC Sodium Bicarbonate (Sodium Bicarb 50meq 50ml Vial) 50 meq AD PRN IV OTHER[SEE DOSING INSTRUCTIONS] 10/11/24 09:00 10/14/24 08:59 DC 10/11/24 18:14 50 MEQ Sodium Chloride 500 ml @ 0 mls/hr AD IV 10/11/24 09:00 11/10/24 08:59 Sodium Chloride 500 ml @ 0 mls/hr Q0M IV 10/06/24 21:30 10/11/24 08:37 DC Sodium Chloride 1,000 ml @ 10 mls/hr ONCE IV 10/11/24 09:00 10/11/24 08:52 DC Sodium Chloride (NS Flush 10ml) 10 ml Q8H IVP 10/07/24 17:30 11/06/24 17:29 10/21/24 01:30 10 ML Sodium Chloride (NS Flush 10ml) 10 ml Q8H PRN IVP IV LINE FLUSH 10/11/24 09:00 11/10/24 08:59 Tramadol HCl (UltRAM) 25 mg Q6H PRN PO MODERATE PAIN (4-6) 10/10/24 14:30 10/11/24 08:37 DC 10/10/24 16:13 25 MG Tramadol HCl (UltRAM) 25 mg Q6H PRN PO MODERATE PAIN (4-6) 10/11/24 09:00 10/16/24 08:59 DC Tramadol HCl (UltRAM) 50 mg Q6H PRN PO SEVERE PAIN (7-10) 10/11/24 09:00 10/16/24 08:59 DC 10/14/24 08:29 50 MG Vasopressin 40 units/Sodium Chloride 40 ml @ 0 mls/hr PROTOCOL IV 10/11/24 11:00 11/10/24 10:59 Vitamin B Complex (Vitamin B-12) 1,000 mcg DAILY PO 10/15/24 21:00 11/14/24 20:59 10/21/24 08:09 1,000 MCG Diagnostics / Radiology: [COPY/PASTE HERE IF NO REPORTS PLEASE DELETE SECTION] Assessment: Concern for GI bleed Anemia, multifactorial CAD Plan: Will hold off on EGD at this time given stable hgb and no overt GI bleeding Continue plavix and aspirin Continue GI prophylaxis Advance diet as tolerated Avoid NSAIDs Antireflux measures Monitor H&H and transfuse as needed Call with questions, concerns or change in clinical status Patient to follow-up at clinic post discharge Thank you for this consult JAMIA AKBAR Oct 21, 2024 09:26
[2024-10-21 10:53] VITALS: BP 101/61; PULSE 66; RESP 17; TEMP 97.9
[2024-10-21] MEDS: ZOSYN 3.375GM +NS 50ML IV ONE (12:03)
--- NOTE | 2024-10-21 12:42 | NUR ---
REPORT GIVEN TO NURSE ROSAS AT [facility].
--- NOTE | 2024-10-21 13:30 | DS ---
Discharge Summary Hospital Course Summary: Ms. Mac is a 79-year-old female that was seen and examined today on 10/05/2024. Patient is a good historian and personal health. Patient states that she came to the emergency department with a chief complaint of bilateral chest wall pain closer to the axilla and pain also radiates to the back. Onset was 9:30 a.m.. Character is described as throbbing. Symptoms are aggravated with palpation and movement. Symptoms are not alleviated with a chiropractic adjustment in fact symptoms became worse after a chiropractic adjustment. There was no alleviating factors Duration of pain is on and off. Patient denies any associated shortness of breath, nausea, vomiting, headache, dizziness. Today in the emergency department CBC unremarkable, troponin 378 (high sensitivity), creatinine 1.1, glucose 208 mg/dL, GFR 51, no urinalysis has been collected or sent to lab. Emergency room initial impression and EKG is that there is new T-wave inversions signifying a change from previous EKGs one week ago at a prior emergency room visit. For this reason emergency room physician recommended patient be admitted with a diagnosis of chest pain. 10/06/24 patient was seen and examined in the ER. She reports that she was doing much better. She denies any chest pain. And she tells me that she came in because she had back pain radiating to bilateral shoulders. She does go to chiropractor to get this resolved but this time it was more persistent 10/07/2024 - patient is seen at bedside in the room ER 5. Patient denies any active chest pain, shortness of breath, nausea, vomiting. [place] [id number] and is coming down with treatment, patient is planned for phlebotomy lab assistant. Patient feels anxious about the upcoming phlebotomy lab assistant procedure and question regarding the procedures, all questions were answered. Patient informed about her extremities getting cold and color change to purplish red and about her joint problems and trouble of food getting stuck in the esophagus after swallowing , immunology workup is planned to rule out limited scleroderma . Patient is hemodynamically stable with temperature 98.6, pulse 77, respiratory rate 17, blood pressure 146/77, pulse oximetry 99% on room air. Patient's labs shows WBC 10.4, hemoglobin 13.5, chemistries show sodium 141, potassium 4.3, creatinine 0.8, BUN 14. Patient is currently on metoprolol, pantoprazole, aspirin, heparin, nitroglycerin. Patient will be followed closely, we will follow Cardiology recommendations. 10/08/2024 - patient is seen in room 201, patient denies any symptoms, patient was taken to the phlebotomy lab assistant yesterday in the results are as follows SELECTIVE CORONARY ANGIOGRAPHY: 1. Left main: The left main bifurcates into the left anterior descending and circumflex coronary artery. Distal Left main with 50% stenosis 2. Left anterior descending: The left anterior descending coronary artery gives rise to diagonal(s) and terminates as the apical recurrent branch. Prox LAD with 90% disease 3. Circumflex: The circumflex coronary artery is noted to provide obtuse marginal(s). Prox Cx with 95% disease 4. Right coronary artery: The right coronary artery is dominant and gives PDA and NIKITA. Prox RCA with 50% disease 5. Left ventricular end-diastolic pressure is elevated. There was no gradient noted upon pullback. Cardiothoracic surgeon is consulted and Dr. Gregg has ordered an ultrasound carotid has a preoperative procedure. patient will be continued on medical management until the surgery . Patient is currently hemodynamically stable with temperature 98.2, pulse 81, blood pressure 122/80, respiratory rate 18, saturating at 94% on room air. Patient's labs shows WBC 10.7, hemoglobin 11.9 and chemistries show sodium 142, potassium 3.7, creatinine 0.7. Awaiting further instructions from cardio thoracic surgeon. 10/17/24 Patient was seen and examined at bedside. She feels better but complains of generalized weakness. She is working with PT at the time of evaluation. Pending bleeding scan today and GI recommendations for discharge. 10/18/24 patient is seen and examined along with the RN. 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 It was 1st identified on nuclear medicine bleeding scan done to rule out GI bleed which did rule out any GI bleed which showed accumulation of tracer in the left groin which was followed by an arterial duplex which did showed a pseudoaneurysm cardiology was notified pressure dressing was applied. No drop in hemoglobin 10/19/24 : Patient seen and examined no new complaints hemoglobin stable 10/20/24 : Patient seen and examined, she complains of soreness of the chest and back today. WORKUP REVEALED UTI CHEST X-RAY WAS NEGATIVE. WHITE COUNT CONTINUE TO BE ELEVATED BUT NO FEVER. PATIENT WAS STARTED ON ZOSYN ON THE HOSPITAL AND WE WILL GET ERTAPENEM FOR QUITE A ON DISCHARGE TO REHAB. PATIENT WAS ALSO STARTED ON LOVENOX. Ditch Worker(s): SEE HOSPITAL COURSE Laboratory Tests Test 10/20/24 16:18 10/20/24 18:40 10/20/24 20:05 10/21/24 03:30 Whole Blood Glucose 91 MG/DL (70-110) # 147 MG/DL (70-110) #H Urine Color YELLOW (YELLOW) Urine Appearance CLOUDY (CLEAR) H Urine pH 6.0 (5.0-8.0) Urine Specific [place] 1.016 (1.001-1.031) Urine Protein NEGATIVE mg/dL (NEGATIVE) Urine Glucose (UA) NEGATIVE mg/dL (NEGATIVE) Urine Ketones NEGATIVE mg/dL (NEGATIVE) Urine Occult Blood NEGATIVE (NEGATIVE) Urine Nitrate NEGATIVE (NEGATIVE) Urine Bilirubin NEGATIVE mg/dL (NEGATIVE) Urine Urobilinogen 6 mg/dL (0.2-1.0) H Urine Leukocyte Esterase 250 Jacy/uL (NEGATIVE) H Urine RBC 0-1 /HPF (0-1) Urine WBC 26-50 /HPF (0-1) H Urine Squamous Epithelial Cells FEW /HPF (0-2) Urine Bacteria FEW /HPF (None Seen) Urine Hyaline Casts 2-5 /LPF (0-1 /LPF) H Urine Other Casts 2 /LPF (None Seen) White Blood Count 14.3 K/uL (4.8-10.8) H Red Blood Count 3.90 MIL/uL (4.00-5.50) L Hemoglobin 11.4 g/dL (12.0-16.0) L Hematocrit 35.5 % (36-48) L Mean Corpuscular Volume 91.0 fL (79-99) Mean Corpuscular Hemoglobin 29.2 pg (27.0-33.0) Mean Corpuscular Hemoglobin Concent 32.1 g/dL (32.0-36.0) Red Cell Distribution Width 18.1 % (11.0-15.5) H Platelet Count 441 K/uL (130-400) H Mean Platelet Volume 9.7 fL (7.5-10.5) Immature Granulocyte % (Auto) 1.7 % (0-1) H Neutrophils (%) (Auto) 73.3 % (40.0-77.0) Lymphocytes (%) (Auto) 13.9 % (21.0-51.0) L Monocytes (%) (Auto) 7.9 % (3.0-13.0) Eosinophils (%) (Auto) 2.4 % (0.0-8.0) Basophils (%) (Auto) 0.8 % (0.0-5.0) Neutrophils # (Auto) 10.5 K/uL (1.8-7.7) H Lymphocytes # (Auto) 2.0 K/uL (1.0-4.8) Monocytes # (Auto) 1.1 K/uL (0.1-1.0) H Eosinophils # (Auto) 0.34 K/uL (0.00-0.70) Basophils # (Auto) 0.11 K/uL (0.00-0.20) Absolute Immature Granulocyte (auto 0.24 K/uL (0-1) Nucleated Red Blood Cells 0.0 % (0.0-0.19) Sodium Level 137 mmol/L (136-145) Potassium Level 4.0 mmol/L (3.5-5.1) Chloride Level 100 mmol/L (101-111) L Carbon Dioxide Level 31 mmol/L (21-32) Blood Urea Nitrogen 19 mg/dL (7-18) H Creatinine 0.8 mg/dL (0.5-1.0) Glomerular Filtration Rate Calc 75 mL/min (>90) Random Glucose 112 mg/dL (70-105) H Total Calcium 8.2 mg/dL (8.5-10.1) L Procalcitonin < 0.05 ng/mL (0.05-0.5) L Test 10/21/24 11:50 Whole Blood Glucose 153 MG/DL (70-110) H Procedure(s): 1) : 10/07/240 PROCEDURES PERFORMED BY GUANACO ORELLANA MD 1. Left heart catheterization. 2. Selective coronary angiography. 3. Moderate sedation 2) 10/11/2024 PROCEDURES PERFORMED BY NAWAF GREGG MD Off-pump CABG x 2, WILSON to LAD, reverse saphenous vein graft to oblique marginal. 3) 10/08/24 1700 PROCEDURES PERFORMED BY CLAUDIA STEELE MD 1. stenting of the LAD 2. angioplasty of the LAD 3. Left heart catheterization. 4. Selective coronary angiography. Assessment/Plan: ASSESSMENT: Chest pain due to NSTEMI, POA NSTEMI, POA Elevated troponin, POA CKD stage IIIA, POA uncontrolled Diabetes mellitius type2, POA Hypertension POA Hypothyroidism POA Raynaud's phenomenon POA GI bleed resolved 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 uti Home Medications: Active Scripts Metoprolol Tartrate (Lopressor) 25 Mg Tab, 12.5 MG PO BID, #30 TAB Prov:OSIRIS ANDERSON MD 10/21/24 Losartan Potassium (Cozaar) 25 Mg Tablet, 12.5 MG PO DAILY, #30 TAB Prov:OSIRIS ANDERSON MD 10/21/24 Furosemide (Lasix 20Mg Tab) 20 Mg Tablet, 20 MG PO Q12H, #30 TAB Prov:OSIRIS ANDERSON MD 10/21/24 Cyanocobalamin (Vitamin B-12) (Vitamin B-12) 1,000 Mcg Tablet, 1000 MCG PO DAILY, #30 TAB Prov:OSIRIS ANDERSON MD 10/21/24 Clopidogrel Bisulfate (Plavix) 75 Mg Tablet, 75 MG PO DAILY, #30 TAB Prov:OSIRIS ANDERSON MD 10/21/24 Atorvastatin Calcium (LIPITOR) 40 Mg Tablet, 80 MG PO HS, #60 TAB Prov:OSIRIS ANDERSON MD 10/21/24 Aspirin (ASPIRIN 81MG CHEW TAB) 81 Mg Tab.chew, 81 MG PO DAILY, #30 TAB.CHEW Prov:OSIRIS ANDERSON MD 10/21/24 Amiodarone HCl (Pacerone) 200 Mg Tablet, 200 MG PO DAILY, #30 TAB Prov:OSIRIS ANDERSON MD 10/21/24 Reported Medications Levothyroxine Sodium (Levothyroxine) 100 Mcg Capsule, 100 MCG PO AD, CAP 10/06/24 Discontinued Reported Medications Valsartan/Hydrochlorothiazide (Valsartan-Hctz 320-25 mg Tab) 320 Mg-25 Mg Tablet, 1 TAB PO DAILY for 30 Days, #30 TAB 0 Refills 10/06/24 Time spent arranging discharge: 31-60 minutes OSIRIS ANDERSON MD Oct 21, 2024 13:30
--- NOTE | 2024-10-21 13:45 | NUR ---
PATIENT ALERT AND ORIENTED X4, WITH AT BEDSIDE, BEING DISCHARGED TO [facility]. PATIENT EDUCATED ON THE LIST OF MEDICATION TO CONTINUED. EDUCATED TO FOLLOW UP WITH DR. GREGG AND DR. ZEE. PATIENT BEING DISCHARGED WITH MIDLINE IN PLACE FOR ANTIBIOTIC TREATMENT X5 MORE DAYS. ALL QUESTIONS ANSWERED. PATIENT AND FAMILY VERBALIZED UNDERSTANDING . AWAITING FACILITY VAN TO HOUSEKEEPING LEAD THE PATIENT.
--- NOTE | 2024-10-21 14:43 | NUR ---
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 SPOKE WITH RODERICK MOREIRA HONAKER, PENDING FACILITY TO CALL [facility] WITH AN ETA.
--- NOTE | 2024-10-21 15:55 | NUR ---
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
[2024-10-21 16:10] VITALS: BP 116/58; PULSE 68; RESP 18; TEMP 98
--- NOTE | 2024-10-21 16:15 | NUR ---
transport picked up patient at this time.
--- NOTE | 2024-10-21 17:13 | PN ---
"[facility] PROGRESS NOTE Late entry Date Patient Seen: Oct 21, 2024 Time of Visit: 18:11 Supervising Physician: Dr. Monk Primary Care Physician: Maine Euceda MD Outpatient Specialists: Inpatient Consults: CV Surgery Dr Licona, Dr Ravi MD, BIS Attending physician|: Kali Carroll MD PROBLEM LIST: Status post CABG x [address] elevation myocardial infarction on admission Dilated cardiomyopathy Acute systolic heart failure exacerbation, EF 35% Atrial fibrillation with RVR Hypertension Type 2 diabetes mellitus Hypothyroidism Chronic kidney disease stage III-A secondary to diabetes mellitus Raynaud's phenomenon GERD GI bleed INTERVAL HISTORY: Patient is currently on room air she is up to chair, no pain, no fevers, no nausea good appetite no constipation up and ambulatory no fevers denies palpitations 10/21/2024: At the time of my evaluation, the patient was sitting up to the bedside chair. The staff nurse reports no acute events overnight. Vital signs were unremarkable. Laboratory data was notable for WBC of 14.3 patient remains afebrile and blood and urine cultures are trending positive. The patient continues on antibiotic coverage. No acute events overnight. REVIEW OF SYSTEMS: 12 point ROS reviewed with patient. Pertinent positives mentioned above. Otherwise negative. PHYSICAL EXAM: GENERAL: Post CABG , recovering HEENT: Sclera non icteric, moist mucosa NECK: Supple, no JVD, trachea midline Rt IJ LUNGS: Clear breath sounds to all lobes bilaterally. No wheezes HEART: Regular rate and rhythm. Normal S1 and S2, without murmurs , incision open to air. healing well ABD: Abdomen soft, nontender. Bowel sounds present EXT: No clubbing cyanosis +1 pitting edema to BLE. pulses palpable. cap refill < 3 seconds to carlos feet. NEURO: GCS 15 no focal weakness. Vital Signs (last 8hr) Date Time Temp Pulse Resp B/P (MAP) Pulse Ox O2 Delivery O2 Flow Rate FiO2 10/21/24 16:10 98.1 68 18 116/58 99 Room Air 0.0 10/21/24 10:53 97.9 66 17 101/61 98 Room Air 0.0 LABS: Hematology Labs: Test 10/21/24 03:30 Range/Units White Blood Count 14.3 H 4.8-10.8 K/uL Red Blood Count 3.90 L 4.00-5.50 MIL/uL Hemoglobin 11.4 L 12.0-16.0 g/dL Hematocrit 35.5 L 36-48 % Mean Corpuscular Volume 91.0 79-99 fL Mean Corpuscular Hemoglobin 29.2 27.0-33.0 pg Mean Corpuscular Hemoglobin Concent 32.1 32.0-36.0 g/dL Red Cell Distribution Width 18.1 H 11.0-15.5 % Platelet Count 441 H 130-400 K/uL Mean Platelet Volume 9.7 7.5-10.5 fL Immature Granulocyte % (Auto) 1.7 H 0-1 % Neutrophils (%) (Auto) 73.3 40.0-77.0 % Lymphocytes (%) (Auto) 13.9 L 21.0-51.0 % Monocytes (%) (Auto) 7.9 3.0-13.0 % Eosinophils (%) (Auto) 2.4 0.0-8.0 % Basophils (%) (Auto) 0.8 0.0-5.0 % Neutrophils # (Auto) 10.5 H 1.8-7.7 K/uL Lymphocytes # (Auto) 2.0 1.0-4.8 K/uL Monocytes # (Auto) 1.1 H 0.1-1.0 K/uL Eosinophils # (Auto) 0.34 0.00-0.70 K/uL Basophils # (Auto) 0.11 0.00-0.20 K/uL Absolute Immature Granulocyte (auto 0.24 0-1 K/uL Nucleated Red Blood Cells 0.0 0.0-0.19 % Chemistry Labs: Test 10/21/24 16:00 10/21/24 03:30 Range/Units Whole Blood Glucose 107 70-110 MG/DL Sodium Level 137 136-145 mmol/L Potassium Level 4.0 3.5-5.1 mmol/L Chloride Level 100 L 101-111 mmol/L Carbon Dioxide Level 31 21-32 mmol/L Blood Urea Nitrogen 19 H 7-18 mg/dL Creatinine 0.8 0.5-1.0 mg/dL Glomerular Filtration Rate Calc 75 >90 mL/min Random Glucose 112 H 70-105 mg/dL Total Calcium 8.2 L 8.5-10.1 mg/dL Procalcitonin < 0.05 L 0.05-0.5 ng/mL DIAGNOSTICS / RADIOLOGY RESULTS: [ ] PLAN continue incentive spirometry PT and OT daily 10/21/2024: The patient has otherwise remained stable and progressing well. She was encouraged to continue IS and participate with therapy. Per the staff nurse, the plan is for discharge to a local [facility] facility. From the critical care standpoint, no objection for discharge. NEURO: Minimize central acting medications as possible. Maintain fall precautions, adequate lighting during the day PULMONARY: Supplemental 02 as needed. Maintain aspiration precautions at all times CARDIOVASCULAR: Follow hemodynamics. Vital signs per facility protocol GI & NUTRITION: Continue with nutritional support. Continue stool softeners and laxatives as needed. KIDNEYS & ELECTROLYTES: Strict monitoring of intake, output and overall fluid balance. Avoid nephrotoxic medications to the extent possible. Medications to be dosed according to renal function. Monitor electrolytes and replace as needed ENDOCRINE: Maintain blood glucose between 100-180 at all times. Hypoglycemia protocol in place INFECTIOUS DISEASE: Trend temperature, WBC and procalcitonin level Follow cultures, deescalate antibiotics as soon as possible. Panculture if new onset fever ONCOLOGY/HEMATOLOGY/COAGULATION: Monitor for s/s of bleeding Monitor hemoglobin, coagulation studies as needed SKIN: Pressure ulcer prevention per facility protocol Specialty mattress ORTHO/REHAB: Continue PT/OT Prophylaxis: Continue GI and DVT prophylaxis Code Status: Full Resuscitation Disposition: As per primary ROBBY FOX NP Oct 21, 2024 17:13"
--- NOTE | 2024-10-21 18:59 | PN ---
SUBJECTIVE: Status post CABG from 10/11, coursing postoperative day #10. OBJECTIVE: GENERAL: Awake, alert, afebrile, neurologically intact. VITAL SIGNS: Stable as recorded in medical record. CHEST: Sternum stable. Incision sealed. LUNGS: Clear. EXTREMITIES: Warm, well perfused. No evidence of DVT, hematoma or infection. ASSESSMENT AND PLAN: Status post coronary artery bypass graft. PROBLEMS: * Coronary artery disease. Aspirin 81 mg, metoprolol 25 mg twice a day. * Fluid overload. Lasix 20 mg twice a day. * Dyslipidemia. Lipitor 40 mg once a day. PLAN: OT, PT, cardiac rehab discharge planning. TID: [id number] RECEIPT: [id number]
--- NOTE | 2024-10-21 20:21 | PN ---
Ms. Mac is a 79-year-old female that was seen and examined today on 10/05/2024. Patient is a good historian and personal health. Patient states that she came to the emergency department with a chief complaint of bilateral chest wall pain closer to the axilla and pain also radiates to the back. Onset was 9:30 a.m.. Character is described as throbbing. Symptoms are aggravated with palpation and movement. Symptoms are not alleviated with a chiropractic adjustment in fact symptoms became worse after a chiropractic adjustment. There was no alleviating factors Duration of pain is on and off. Patient denies any associated shortness of breath, nausea, vomiting, headache, dizziness. Patient with anemia and thrombocytopenia. Patient complaining of pain at the site of the surgery. There is a chest tube in place. Patient is Rosa catheter in place. There is no obvious bleeding. Patient was found to have pseudoaneurysm PE General Appearance: Alert, Oriented X3, Cooperative, No acute distress HEENT: Atraumatic, EOMI, Mucous membr. moist/pink Respiratory: Clear to auscultation, Normal air movement, NL respiratory effort Cardiovascular: Regular rate, Regular rhythm, Normal S1, Normal S2 Abdominal: Normal bowel sounds, Soft, No tenderness Extremities: No edema Skin: No significant lesion Neuro: Normal speech, Strength at 5/5 X4 ext, Sensation intact, Cranial nerves 3-12 NL Psych/Mental Status: Mental status NL, Mood NL, Thoughts/Content NL ASSESSMENT: 1. Coronary artery disease status post surgery 2. Iron deficiency anemia Post blood transfusion multiple times 3. Thrombocytopenia. Platelet count is corrected at this time 4. Chronic renal insufficiency 5. Hypertension 6. Hypothyroidism 7. Postoperative A-fib with RVR with the patient on amiodarone 8. Pseudoaneurysm Plan 1. Patient with iron deficiency anemia. This patient should be investigated by GI. 2. There was hypersegmented neutrophils. This patient to Continue on folic acid 1 mg p.o. daily and vitamin B12 1000 mcg p.o. daily. 3. Patient was found to have iron deficiency anemia. This patient to be started on IV iron while in the hospital. Then the patient will need oral supplement every other day for at least 6 months. 4. Direct Shayla was negative. There is no need for tapering dose of prednisone 5. Continue care as per surgery Vitals/Labs Vital Signs Date Time Temp Pulse Resp B/P (MAP) Pulse Ox O2 Delivery O2 Flow Rate FiO2 10/21/24 16:10 98.1 68 18 116/58 99 Room Air 0.0 10/21/24 08:15 21 Laboratory Tests 10/21/24 03:30 Medications Current Medications Morphine Sulfate 2 mg ONCE ONCE IVP Last administered on 10/05/24at 22:22; Start 10/05/24 at 22:30; Stop 10/05/24 at 22:31; Status DC Ketorolac Tromethamine 15 mg ONCE ONCE IV Last administered on 10/05/24at 23:34; Start 10/05/24 at 22:30; Stop 10/05/24 at 22:31; Status DC Nitroglycerin 0.4 mg AD PRN SL; Start 10/05/24 at 22:30; Stop 10/11/24 at 08:37; Status DC Aspirin 162 mg ONCE ONCE PO Last administered on 10/05/24at 23:32; Start 10/05/24 at 23:30; Stop 10/05/24 at 23:31; Status DC Aspirin 81 mg DAILY PO Last administered on 10/21/24at 08:09; Start 10/06/24 at 09:00; Stop 10/21/24 at 18:20; Status DC Nitroglycerin 0.5 inch Q8H TD Last administered on 10/10/24at 22:37; Start 10/05/24 at 23:30; Stop 10/11/24 at 08:37; Status DC Ondansetron HCl 4 mg Q6H PRN IV; Start 10/05/24 at 23:30; Stop 10/11/24 at 08:37; Status DC Heparin Sodium (Porcine) 5,000 unit BID SQ; Start 10/06/24 at 09:00; Stop 10/06/24 at 06:29; Status DC Pantoprazole Sodium 40 mg DAILY PO Last administered on 10/10/24at 09:00; Start 10/06/24 at 09:00; Stop 10/11/24 at 08:37; Status DC Acetaminophen 650 mg Q6H PRN PO Last administered on 10/10/24at 06:06; Start 10/05/24 at 23:30; Stop 10/14/24 at 09:10; Status DC Insulin Human Regular INSULIN SLIDING SCAL... ACHS SQ; Start 10/06/24 at 07:30; Stop 10/11/24 at 08:37; Status DC Potassium Chloride 100 ml @ 100 mls/hr AD PRN IV; Start 10/05/24 at 23:30; Stop 10/11/24 at 08:37; Status DC Potassium Chloride 20 meq AD PRN PO Last administered on 10/09/24at 21:00; Start 10/05/24 at 23:30; Stop 10/11/24 at 08:37; Status DC Potassium Chloride 20 meq AD PRN PO; Start 10/05/24 at 23:30; Stop 10/11/24 at 08:37; Status DC Magnesium Sulfate 50 ml @ 0 mls/hr PROTOCOL PRN IV; Start 10/05/24 at 23:30; Stop 10/11/24 at 08:37; Status DC Heparin Sodium (Porcine) *calculation based on ACTUAL B... AD PRN IV Last administered on 10/06/24at 07:19; Start 10/06/24 at 07:30; Stop 10/10/24 at 08:27; Status DC Heparin Sodium/ Dextrose 250 ml @ 0 mls/hr Q6H IV Last administered on 10/08/24at 14:20; Start 10/06/24 at 07:30; Stop 10/10/24 at 08:17; Status DC Atorvastatin Calcium 40 mg ONCE ONCE PO Last administered on 10/06/24at 21:22; Start 10/06/24 at 21:30; Stop 10/06/24 at 21:31; Status DC Clopidogrel Bisulfate 75 mg ONCE ONCE PO Last administered on 10/06/24at 21:22; Start 10/06/24 at 21:30; Stop 10/06/24 at 21:31; Status DC Metoprolol Tartrate 12.5 mg BID PO Last administered on 10/11/24at 06:32; Start 10/07/24 at 09:00; Stop 10/11/24 at 08:37; Status DC Sodium Chloride 500 ml @ 0 mls/hr Q0M IV; Start 10/06/24 at 21:30; Stop 10/11/24 at 08:37; Status DC Lidocaine HCl 20 ml STK-MED ONCE .ROUTE; Start 10/07/24 at 16:23; Stop 10/07/24 at 16:23; Status DC Iohexol 75 ml STK-MED ONCE IV; Start 10/07/24 at 16:23; Stop 10/07/24 at 16:23; Status DC Heparin Sodium (Porcine) 10,000 unit STK-MED ONCE .ROUTE; Start 10/07/24 at 16:23; Stop 10/07/24 at 16:23; Status DC Heparin Sodium/ Sodium Chloride 1,000 ml @ As Directed STK-MED ONCE IV; Start 10/07/24 at 16:23; Stop 10/07/24 at 16:23; Status DC Nitroglycerin 50 mg STK-MED ONCE .ROUTE; Start 10/07/24 at 16:23; Stop 10/07/24 at 16:23; Status DC Fentanyl Citrate 100 mcg STK-MED ONCE .ROUTE; Start 10/07/24 at 16:24; Stop 10/07/24 at 16:24; Status DC Midazolam HCl 2 mg STK-MED ONCE .ROUTE; Start 10/07/24 at 16:24; Stop 10/07/24 at 16:24; Status DC Nicardipine HCl 25 mg STK-MED ONCE IV; Start 10/07/24 at 16:24; Stop 10/07/24 at 16:24; Status DC Sodium Chloride 10 ml Q8H IVP Last administered on 10/21/24at 10:09; Start 10/07/24 at 17:30; Stop 10/21/24 at 18:20; Status DC Pharmacy Profile Note 1 each ONCE MISC Last administered on 10/07/24at 23:37; Start 10/07/24 at 17:30; Stop 10/08/24 at 07:12; Status DC Atorvastatin Calcium 20 mg HS PO Last administered on 10/10/24at 20:55; Start 10/08/24 at 21:00; Stop 10/11/24 at 08:37; Status DC Levothyroxine Sodium 100 mcg SYN PO Last administered on 10/21/24at 05:58; Start 10/09/24 at 06:30; Stop 10/21/24 at 18:20; Status DC Heparin Sodium/ Dextrose 250 ml @ 0 mls/hr Q6H IV; Start 10/10/24 at 09:00; Stop 10/10/24 at 08:26; Status DC Cefazolin Sodium 2 gm ONCALL PRN IVP; Start 10/10/24 at 12:00; Stop 10/12/24 at 11:59; Status DC Tramadol HCl 25 mg Q6H PRN PO Last administered on 10/10/24at 16:13; Start 10/10/24 at 14:30; Stop 10/11/24 at 08:37; Status DC Cyclobenzaprine HCl 5 mg TID PRN PO; Start 10/10/24 at 14:30; Stop 10/11/24 at 08:37; Status DC Epinephrine HCl 10 mg/Sodium Chloride 250 ml @ 0 mls/hr AD PRN IV; Start 10/11/24 at 07:00; Stop 10/11/24 at 09:01; Status DC Norepinephrine Bitartrate 250 ml @ 0 mls/hr AD PRN IV; Start 10/11/24 at 07:00; Stop 10/11/24 at 09:03; Status DC Aminocaproic Acid 84706 mg/Sodium Chloride 480 ml @ 0 mls/hr AD PRN IV; Start 10/11/24 at 07:00; Stop 10/21/24 at 18:20; Status DC Cefazolin Sodium 1 gm STK-MED ONCE .ROUTE; Start 10/11/24 at 06:50; Stop 10/11/24 at 06:51; Status DC Heparin Sodium/ Sodium Chloride 500 ml @ As Directed STK-MED ONCE IV; Start 10/11/24 at 06:51; Stop 10/11/24 at 06:51; Status DC Papaverine HCl 60 mg STK-MED ONCE .ROUTE; Start 10/11/24 at 06:51; Stop 10/11/24 at 06:51; Status DC Cefazolin Sodium 2 gm STK-MED ONCE .ROUTE; Start 10/11/24 at 06:53; Stop 10/11/24 at 06:54; Status DC Sodium Chloride 1,000 ml @ As Directed STK-MED ONCE IV; Start 10/11/24 at 06:53; Stop 10/11/24 at 06:54; Status DC Protamine Sulfate 250 mg STK-MED ONCE IV; Start 10/11/24 at 07:56; Stop 10/11/24 at 07:56; Status DC Lidocaine HCl 100 mg STK-MED ONCE .ROUTE; Start 10/11/24 at 07:56; Stop 10/11/24 at 07:56; Status DC Heparin Sodium (Porcine) 10,000 unit STK-MED ONCE .ROUTE; Start 10/11/24 at 07:56; Stop 10/11/24 at 07:56; Status DC Epinephrine HCl 1 mg STK-MED ONCE .ROUTE; Start 10/11/24 at 07:56; Stop 10/11/24 at 07:56; Status DC Sodium Bicarbonate 200 ml @ As Directed STK-MED ONCE .ROUTE; Start 10/11/24 at 07:56; Stop 10/11/24 at 07:56; Status DC Norepinephrine Bitartrate 4 mg STK-MED ONCE IV; Start 10/11/24 at 07:56; Stop 10/11/24 at 07:56; Status DC Fentanyl Citrate 1,000 mcg STK-MED ONCE IJ; Start 10/11/24 at 07:56; Stop 10/11/24 at 07:57; Status DC Propofol 200 mg STK-MED ONCE IV; Start 10/11/24 at 07:57; Stop 10/11/24 at 07:57; Status DC Midazolam HCl 2 mg STK-MED ONCE .ROUTE; Start 10/11/24 at 07:57; Stop 10/11/24 at 07:57; Status DC Rocuronium Lynd 50 mg STK-MED ONCE .ROUTE; Start 10/11/24 at 07:57; Stop 10/11/24 at 07:57; Status DC Ketamine HCl 50 mg STK-MED ONCE .ROUTE; Start 10/11/24 at 07:57; Stop 10/11/24 at 07:58; Status DC Nitroglycerin/ Dextrose 1 ml @ As Directed STK-MED ONCE .ROUTE; Start 10/11/24 at 08:27; Stop 10/11/24 at 08:27; Status DC Atorvastatin Calcium 40 mg HS PO Last administered on 10/13/24at 20:32; Start 10/11/24 at 21:00; Stop 10/14/24 at 09:11; Status DC Acetaminophen 1,000 mg Q6H6 IV Last administered on 10/12/24at 05:06; Start 10/11/24 at 12:00; Stop 10/12/24 at 11:59; Status DC Aspirin 81 mg ONCE ONCE NG; Start 10/11/24 at 12:00; Stop 10/11/24 at 08:42; Status DC Docusate Sodium 100 mg BID PO Last administered on 10/16/24at 09:01; Start 10/12/24 at 09:00; Stop 10/17/24 at 10:46; Status DC Lactulose 20 gm BID PRN PO; Start 10/11/24 at 09:00; Stop 10/21/24 at 18:20; Status DC Furosemide 20 mg Q12H PO Last administered on 10/21/24at 08:09; Start 10/13/24 at 09:00; Stop 10/21/24 at 18:20; Status DC Furosemide 20 mg Q12H IV Last administered on 10/12/24at 21:18; Start 10/12/24 at 09:00; Stop 10/13/24 at 08:59; Status DC Enoxaparin Sodium 30 mg DAILY SQ; Start 10/14/24 at 09:00; Stop 10/11/24 at 14:00; Status DC Metoprolol Tartrate 12.5 mg BID PO Last administered on 10/21/24at 08:10; Start 10/13/24 at 09:00; Stop 10/21/24 at 18:20; Status DC Magnesium Hydroxide 30 ml DAILY PRN PO; Start 10/11/24 at 09:00; Stop 10/21/24 at 18:20; Status DC Dexmedetomidine/ Sodium Chloride 400 mcg PROTOCOL IV; Start 10/11/24 at 09:00; Stop 10/12/24 at 08:59; Status DC Acetaminophen 650 mg Q6H PRN PO Last administered on 10/20/24at 09:34; Start 10/11/24 at 09:00; Stop 10/21/24 at 18:20; Status DC Sodium Chloride 1,000 ml @ 10 mls/hr ONCE IV; Start 10/11/24 at 09:00; Stop 10/11/24 at 08:52; Status DC Sodium Chloride 10 ml Q8H PRN IVP; Start 10/11/24 at 09:00; Stop 10/21/24 at 18:20; Status DC Morphine Sulfate 0.5 mg Q2H PRN IV; Start 10/11/24 at 09:00; Stop 10/12/24 at 08:59; Status DC Morphine Sulfate 1 mg Q2H PRN IV; Start 10/11/24 at 09:00; Stop 10/16/24 at 11:59; Status DC Acetaminophen 650 mg Q4H PRN RC; Start 10/11/24 at 09:00; Stop 10/21/24 at 18:20; Status DC Ondansetron HCl 4 mg Q6H PRN IV Last administered on 10/13/24at 08:20; Start 10/11/24 at 09:00; Stop 10/21/24 at 18:20; Status DC Sodium Chloride 500 ml @ 0 mls/hr AD IV; Start 10/11/24 at 09:00; Stop 10/21/24 at 18:20; Status DC Nitroglycerin/ Dextrose 0 ml @ 0 mls/hr AD IV Last administered on 10/11/24at 12:00; Start 10/11/24 at 09:00; Stop 10/14/24 at 08:59; Status DC Propofol 100 ml @ 0 mls/hr AD PRN IV; Start 10/11/24 at 09:00; Stop 10/15/24 at 08:59; Status DC Norepinephrine Bitartrate 250 ml @ 0 mls/hr AD PRN IV Last administered on 10/12/24at 08:08; Start 10/11/24 at 09:00; Stop 10/21/24 at 18:20; Status DC Epinephrine HCl 10 mg/Sodium Chloride 250 ml @ 7.716 mls/ hr AD PRN IV; Start 10/11/24 at 09:00; Stop 10/16/24 at 08:59; Status DC Aminocaproic Acid 81204 mg/Sodium Chloride 310 ml @ 25 mls/hr AD IV; Start 10/11/24 at 09:00; Stop 10/11/24 at 08:54; Status DC Calcium Gluconate 1 gm/Sodium Chloride 60 ml @ 200 mls/hr AD PRN IV Last administered on 10/13/24at 17:20; Start 10/11/24 at 09:00; Stop 10/21/24 at 18:20; Status DC Magnesium Sulfate 50 ml @ 12.5 mls/hr AD PRN IV Last administered on 10/19/24at 08:41; Start 10/11/24 at 09:00; Stop 10/21/24 at 18:20; Status DC Potassium Chloride 100 ml @ 100 mls/hr AD PRN IV Last administered on 10/16/24at 09:02; Start 10/11/24 at 09:00; Stop 10/21/24 at 18:20; Status DC Potassium Phosphate 250 ml @ 42 mls/hr AD PRN IV; Start 10/11/24 at 09:00; Stop 10/21/24 at 18:20; Status DC Albumin Human 250 ml @ 0 mls/hr AD PRN IV Last administered on 10/11/24at 23:20; Start 10/11/24 at 09:00; Stop 10/11/24 at 23:20; Status DC Acetaminophen 650 mg Q4H PRN PO; Start 10/11/24 at 09:00; Stop 10/21/24 at 18:20; Status DC Insulin Human Regular 100 unit/ Sodium Chloride 100 ml @ 0 mls/hr AD IV Last administered on 10/11/24at 23:19; Start 10/11/24 at 09:00; Stop 10/13/24 at 08:59; Status DC Cefazolin Sodium 2 gm Q8H IVPB Last administered on 10/12/24at 06:21; Start 10/11/24 at 14:00; Stop 10/12/24 at 06:01; Status DC Tramadol HCl 25 mg Q6H PRN PO; Start 10/11/24 at 09:00; Stop 10/16/24 at 08:59; Status DC Tramadol HCl 50 mg Q6H PRN PO Last administered on 10/14/24at 08:29; Start 10/11/24 at 09:00; Stop 10/16/24 at 08:59; Status DC Famotidine 20 mg BID IV; Start 10/11/24 at 09:00; Stop 10/11/24 at 09:03; Status DC Sodium Bicarbonate 50 meq AD PRN IV Last administered on 10/11/24at 18:14; Start 10/11/24 at 09:00; Stop 10/14/24 at 08:59; Status DC Dextrose 50 ml AD PRN IV; Start 10/11/24 at 09:00; Stop 10/13/24 at 07:52; Status DC Glucagon 1 mg AD PRN IM; Start 10/11/24 at 09:00; Stop 10/13/24 at 07:52; Status DC Sodium Chloride 1,000 ml @ 10 mls/hr ONCE ONCE IV Last administered on 10/11/24at 10:30; Start 10/11/24 at 09:00; Stop 10/14/24 at 09:10; Status DC Famotidine 20 mg Q24H IV Last administered on 10/21/24at 08:10; Start 10/11/24 at 09:30; Stop 10/21/24 at 18:20; Status DC Vasopressin 20 units STK-MED ONCE .ROUTE; Start 10/11/24 at 09:42; Stop 10/11/24 at 09:42; Status DC Ephedrine Sulfate 50 mg STK-MED ONCE .ROUTE; Start 10/11/24 at 09:42; Stop 10/11/24 at 09:43; Status DC Protamine Sulfate 250 mg STK-MED ONCE IV; Start 10/11/24 at 09:54; Stop 10/11/24 at 09:54; Status DC Protamine Sulfate 50 mg STK-MED ONCE .ROUTE; Start 10/11/24 at 09:54; Stop 10/11/24 at 09:54; Status DC Heparin Sodium (Porcine) 10,000 unit STK-MED ONCE .ROUTE; Start 10/11/24 at 09:54; Stop 10/11/24 at 09:54; Status DC Vasopressin 40 units/Sodium Chloride 40 ml @ 0 mls/hr PROTOCOL IV; Start 10/11/24 at 11:00; Stop 10/21/24 at 18:20; Status DC Lidocaine HCl/ Dextrose 250 ml @ 0 mls/hr AD PRN IV Last administered on 10/12/24at 14:44; Start 10/11/24 at 11:00; Stop 10/12/24 at 19:18; Status DC Lidocaine HCl/ Dextrose 250 ml @ As Directed STK-MED ONCE IV; Start 10/11/24 at 10:57; Stop 10/11/24 at 10:57; Status DC Amiodarone HCl 150 mg/Dextrose 103 ml @ 618 mls/hr ONCE IV Last administered on 10/11/24at 11:57; Start 10/11/24 at 12:00; Stop 10/11/24 at 12:09; Status DC Amiodarone HCl 360 mg/Dextrose 207.2 ml @ 33.3 mls/hr AD IV Last administered on 10/11/24at 12:04; Start 10/11/24 at 12:00; Stop 10/12/24 at 19:18; Status DC Amiodarone HCl 540 mg/Dextrose 310.8 ml @ 16.7 mls/hr [id number] IV Last administered on 10/11/24at 18:20; Start 10/11/24 at 12:00; Stop 10/20/24 at 14:17; Status DC Atropine Sulfate 1 mg STK-MED ONCE IVP; Start 10/11/24 at 12:42; Stop 10/11/24 at 12:42; Status DC Iohexol 35,000 mg STK-MED ONCE IV; Start 10/11/24 at 12:42; Stop 10/11/24 at 12:42; Status DC Heparin Sodium (Porcine) 10,000 unit STK-MED ONCE .ROUTE; Start 10/11/24 at 12:42; Stop 10/11/24 at 12:42; Status DC Heparin Sodium/ Sodium Chloride 1,000 ml @ As Directed STK-MED ONCE IV; Start 10/11/24 at 12:42; Stop 10/11/24 at 12:43; Status DC Nitroglycerin 50 mg STK-MED ONCE .ROUTE; Start 10/11/24 at 12:42; Stop 10/11/24 at 12:43; Status DC Lidocaine HCl 20 ml STK-MED ONCE .ROUTE; Start 10/11/24 at 12:43; Stop 10/11/24 at 12:43; Status DC Bivalirudin 250 mg STK-MED ONCE IV; Start 10/11/24 at 13:27; Stop 10/11/24 at 13:27; Status DC Iohexol 35,000 mg STK-MED ONCE IV; Start 10/11/24 at 13:34; Stop 10/11/24 at 13:34; Status DC Clopidogrel Bisulfate 300 mg STK-MED ONCE .ROUTE; Start 10/11/24 at 13:45; Stop 10/11/24 at 13:47; Status DC Clopidogrel Bisulfate 75 mg DAILY PO Last administered on 10/21/24at 08:09; Start 10/12/24 at 09:00; Stop 10/21/24 at 18:20; Status DC Heparin Sodium/ Dextrose 250 ml @ 0 mls/hr PROTOCOL IV Last administered on 10/11/24at 16:14; Start 10/11/24 at 16:00; Stop 10/12/24 at 19:18; Status DC Dextrose 50 ml AD PRN IV; Start 10/11/24 at 15:00; Stop 10/21/24 at 18:20; Status DC Glucagon 1 mg AD PRN IM; Start 10/11/24 at 15:00; Stop 10/21/24 at 18:20; Status DC Heparin Sodium/ Dextrose 250 ml @ 0 mls/hr PROTOCOL IV; Start 10/11/24 at 16:00; Stop 10/11/24 at 15:24; Status DC Cefazolin Sodium 2 gm STK-MED ONCE IVPB Last administered on 10/11/24at 08:30; Start 10/11/24 at 08:30; Stop 10/11/24 at 20:01; Status DC Cefazolin Sodium 1 gm STK-MED ONCE IRRIG Last administered on 10/11/24at 09:00; Start 10/11/24 at 09:00; Stop 10/11/24 at 20:01; Status DC Papaverine HCl 60 mg STK-MED ONCE IRRIG Last administered on 10/11/24at 09:00; Start 10/11/24 at 09:00; Stop 10/11/24 at 20:01; Status DC Heparin Sodium (Porcine) 5,000 unit STK-MED ONCE IRRIG Last administered on 10/11/24at 09:00; Start 10/11/24 at 09:00; Stop 10/11/24 at 20:01; Status DC Furosemide 20 mg ONCE ONCE IV; Start 10/12/24 at 02:30; Stop 10/12/24 at 02:31; Status DC Furosemide 20 mg STK-MED ONCE .ROUTE Last administered on 10/12/24at 02:20; Start 10/12/24 at 02:16; Stop 10/12/24 at 02:17; Status DC Albumin Human 250 ml @ As Directed STK-MED ONCE IV Last administered on 10/12/24at 21:19; Start 10/12/24 at 17:49; Stop 10/12/24 at 17:50; Status DC Amiodarone HCl 200 mg DAILY PO Last administered on 10/21/24at 08:09; Start 10/13/24 at 09:00; Stop 10/21/24 at 18:20; Status DC Insulin Human Regular INSULIN SLIDING SCAL... ACHS SQ Last administered on 10/20/24at 12:15; Start 10/13/24 at 11:30; Stop 10/21/24 at 18:20; Status DC Potassium Chloride 20 meq AD PRN PO Last administered on 10/19/24at 11:58; Start 10/14/24 at 09:00; Stop 10/21/24 at 18:20; Status DC Atorvastatin Calcium 40 mg HS PO Last administered on 10/20/24at 20:43; Start 10/14/24 at 21:00; Stop 10/21/24 at 18:20; Status DC Iron Sucrose 200 mg ONCE ONCE IV; Start 10/17/24 at 18:00; Stop 10/14/24 at 18:16; Status DC Folic Acid 1 mg DAILY PO Last administered on 10/21/24at 08:09; Start 10/15/24 at 21:00; Stop 10/21/24 at 18:20; Status DC Vitamin B Complex 1,000 mcg DAILY PO Last administered on 10/21/24at 08:09; Start 10/15/24 at 21:00; Stop 10/21/24 at 18:20; Status DC Iron Sucrose 200 mg AD IV; Start 10/14/24 at 18:30; Stop 10/14/24 at 18:34; Status DC Iron Sucrose 200 mg Q24H IV Last administered on 10/16/24at 18:32; Start 10/14/24 at 19:00; Stop 10/16/24 at 19:01; Status DC Furosemide 20 mg ONCE ONCE IV; Start 10/16/24 at 12:00; Stop 10/16/24 at 12:01; Status DC Docusate Sodium 100 mg BID PRN PO; Start 10/17/24 at 11:00; Stop 10/21/24 at 18:20; Status DC Potassium Chloride 20 meq STK-MED ONCE PO; Start 10/19/24 at 08:37; Stop 10/19/24 at 08:37; Status DC Losartan Potassium 12.5 mg DAILY PO; Start 10/21/24 at 09:00; Stop 10/21/24 at 18:20; Status DC Enoxaparin Sodium 30 mg DAILY SQ; Start 10/22/24 at 09:00; Stop 10/21/24 at 18:20; Status DC Piperacillin Sod/ Tazobactam Sod 3.375 gm ONCE ONCE IV Last administered on 10/21/24at 12:03; Start 10/21/24 at 12:00; Stop 10/21/24 at 12:01; Status DC NIKHIL FLETCHER MD Oct 21, 2024 20:21
[2024-10-22] MEDS ORDERED: ENOXAPARIN SODIUM 30 MG/0.3 ML SQ SCH (09:00)
== END 2024-10-21 18:20 | DRG 231 ==
LOC: EDH 21:35 → EDHIP 23:04 → 2AH 10-07 18:04 → 2CV 10-11 07:28 → 2CH 10-12 18:45 → 2AH 10-16 12:45
PROVIDERS: ADMIT Internal Medicine; ATTEND Internal Medicine
PROC: 4A023N7 Measurement of Cardiac Sampling and Pressure, Left Heart, Percutaneous Approach (ICD-10-PCS; principal; 2024-10-07)
PROC: B2111ZZ Fluoroscopy of Multiple Coronary Arteries using Low Osmolar Contrast (ICD-10-PCS; 2024-10-07)
PROC: 0PH000Z Insertion of Rigid Plate Internal Fixation Device into Sternum, Open Approach (ICD-10-PCS; 2024-10-11)
PROC: 4A023N7 Measurement of Cardiac Sampling and Pressure, Left Heart, Percutaneous Approach (ICD-10-PCS; 2024-10-11)
PROC: B2111ZZ Fluoroscopy of Multiple Coronary Arteries using Low Osmolar Contrast (ICD-10-PCS; 2024-10-11)
PROC: B2181ZZ Fluoroscopy of Left Internal Mammary Bypass Graft using Low Osmolar Contrast (ICD-10-PCS; 2024-10-11)
PROC: 05HY33Z Insertion of Infusion Device into Upper Vein, Percutaneous Approach (ICD-10-PCS; 2024-10-11)
PROC: 021009W Bypass Coronary Artery, One Artery from Aorta with Autologous Venous Tissue, Open Approach (ICD-10-PCS; 2024-10-11 07:57)
PROC: 027034Z Dilation of Coronary Artery, One Artery with Drug-eluting Intraluminal Device, Percutaneous Approach (ICD-10-PCS; 2024-10-11 07:57)
PROC: 06BQ4ZZ Excision of Left Saphenous Vein, Percutaneous Endoscopic Approach (ICD-10-PCS; 2024-10-11 07:57)
PROC: 02100Z9 Bypass Coronary Artery, One Artery from Left Internal Mammary, Open Approach (ICD-10-PCS; 2024-10-11 07:57)
PROC: 30233N1 Transfusion of Nonautologous Red Blood Cells into Peripheral Vein, Percutaneous Approach (ICD-10-PCS; 2024-10-12)
DX: I21.09 ST elevation (STEMI) myocardial infarction involving other coronary artery of anterior wall (principal); I50.23 Acute on chronic systolic (congestive) heart failure; I13.0 Hypertensive heart and chronic kidney disease with heart failure and stage 1 through stage 4 chronic kidney disease, or unspecified chronic kidney disease; K92.2 Gastrointestinal hemorrhage, unspecified; I97.89 Other postprocedural complications and disorders of the circulatory system, not elsewhere classified; D62 Acute posthemorrhagic anemia; J98.11 Atelectasis; N39.0 Urinary tract infection, site not specified; I42.0 Dilated cardiomyopathy; I25.10 Atherosclerotic heart disease of native coronary artery without angina pectoris; N18.31 Chronic kidney disease, stage 3a; D50.9 Iron deficiency anemia, unspecified; E11.22 Type 2 diabetes mellitus with diabetic chronic kidney disease; I73.00 Raynaud's syndrome without gangrene; D69.6 Thrombocytopenia, unspecified; E78.00 Pure hypercholesterolemia, unspecified; E11.65 Type 2 diabetes mellitus with hyperglycemia; K21.9 Gastro-esophageal reflux disease without esophagitis; Y83.8 Other surgical procedures as the cause of abnormal reaction of the patient, or of later complication, without mention of misadventure at the time of the procedure; Z79.82 Long term (current) use of aspirin; Z95.1 Presence of aortocoronary bypass graft; Z79.899 Other long term (current) drug therapy; Z51.5 Encounter for palliative care; Z79.02 Long term (current) use of antithrombotics/antiplatelets; I25.2 Old myocardial infarction
CPT/HCPCS: 36415; 36430; 36600; 71045; 76882; 78278; 80048; 80053; 80061; 81001; 81003; 82270; 82330; 82435; 82550; 82803; 82947; 82948; 83036; 83540; 83550; 83605; 83735; 83880; 84100; 84132; 84145; 84295; 84443; 84484; 85014; 85018; 85025; 85027; 85347; 85610; 85730; 86022; 86038; 86200; 86235; 86850; 86880; 86900; 86901; 86923; 87086; 87186; 87641; 93005; 93306; 93312; 93325; 93455; 93458; 93880; 93926; 94002; 94010; 94150; 96374; 96375; 99156; 99157; 99291; A4450; A7048; A9512; C1769; C1894; C9600; C9606; G0378; J0171; J0282; J0461; J0583; J0612; J0690; J1644; J1756; J1815; J1885; J1940; J2003; J2250; J2270; J2405; J2440; J2543; J2704; J2720; J3010; J3475; J3480; J3490; J7030; J7040; J7060; P9016; P9045; Q9967; A4213; A4216; A4222; A4223; A4510; A4649; A4663; A4930; A6204; A9272; C1713; C1725; C1776; C1874; C1887; Q9965